=== PATIENT | female | born 1945 | race Caucasian/White ===

== ENCOUNTER 2016-06-03 18:52 | Inpatient (IN) | payer OTHER ==
[2016-06-03 19:08] VITALS: BMI 52.0
[2016-06-03 19:46] LABS: BASOPHIL 0.9 % (0-2.0); EOSINOPHIL 2.1 % (0-4.5); MCH 27.4 pg (25.7-33.7); MCHC 30.8 g/dl (32.0-36.0); MEAN CELL VOLUME 89.1 fl (80-96); MEAN PLT VOLUME 7.9 fl (7.5-11.1); PLATELET COUNT 214 K/MM3 (134-434); WHITE BLOOD COUNT 7.2 K/mm3 (4.0-10.0)
[2016-06-03 20:03] LABS: INR 1.36 (0.82-1.09); PROTHROMBIN TIME (PATIENT) 15.1 SEC (9.98-11.88)
[2016-06-03 20:10] LABS: ALBUMIN 2.2 g/dl (3.4-5.0); BILIRUBIN,TOTAL 0.3 mg/dL (0.2-1.0); CALCIUM 8.1 mg/dL (8.5-10.1); CREATININE 1.8 mg/dL (0.55-1.02); TOT PROT 6.1 g/dl (6.4-8.2)
--- NOTE | 2016-06-03 20:45 | PDOC ---
History of Present Illness - History of Present Illness Initial Comments: 06/03/16 20:46 The patient is a 71 year old female, with a significant past medical history of CAD, CHF, NE x2, HTN, HLD, COPD (O2 dependant 2L), renal insufficiency, DM, who presents to the emergency department via ems from [facility] with lab variance (low H&H) today. As per Dr. Wong, the patient is in need of a blood transfusion. The patient also has CHF and will need lasiks after the transfusion. The patient also need to be sen for her left foot infection, which she follows up with Dr. Alonso, and will be started on Hyperbarics. She denies chest pain, shortness of breath, headache and dizziness. She denies fever, chills, nausea, vomit, diarrhea and constipation. She denies dysuria, frequency, urgency and hematuria. Allergies: sulfa, tuberculin, ppd allergy Social history: Denies toxic habits PCP - Dr. Wong Coating And Baking Operator: Dr. [facility] Nurse Practitioner: Dr. Mcnamara <Mary Lou Roman - Last Filed: 06/03/16 20:57> <Stephane Martinez - Last Filed: 06/03/16 21:53> <April Liu - Last Filed: 06/05/16 01:57> - General Chief Complaint: Revisit, Lab Variance Stated Complaint: ABNORMAL LABS Time Seen by Provider: 06/03/16 19:13 Past History <Mary Lou Roman - Last Filed: 06/03/16 20:57> <Stephane Martinez - Last Filed: 06/03/16 21:53> - Past Medical History Anemia: Yes (chronic kidney disease) Asthma: Yes Cancer: No Cardiac Disorders: Yes (NE, cad, CHF) CVA: No COPD: Yes CHF: Yes Dementia: No Diabetes: Yes GI Disorders: Yes (gerd, constipation) Disorders: Yes (UTI) HTN: Yes Hypercholesterolemia: Yes Liver Disease: No Seizures: No Thyroid Disease: Yes (hypothyroidism) Other medical history: cellulitis of left lower leg. - Surgical History Abdominal Surgery: Yes Appendectomy: No Cardiac Surgery: No Cholecystectomy: No Lung Surgery: No Neurologic Surgery: No Orthopedic Surgery: Yes (amputationr great toe) - Immunization History Td Vaccination: Yes Immunization Up to Date: Yes - Psycho/Social/Smoking Cessation Hx Anxiety: No Suicidal Ideation: No Smoking Status: No Smoking History: Never smoked Years of Tobacco Use: 0 Have you smoked in the past 12 months: No Number of Cigarettes Smoked Daily: 0 Cigars Per Day: 0 Information on smoking cessation initiated: No Hx Alcohol Use: No Drug/Substance Use Hx: No Substance Use Type: None Hx Substance Use Treatment: No <April Liu - Last Filed: 06/05/16 01:57> - Past Medical History Allergies/Adverse Reactions: Allergies Allergy/AdvReac Type Severity Reaction Status Date / Time Sulfa (Sulfonamide Allergy Unknown Verified 06/03/16 19:08 Antibiotics) [Sulfa(Sulfonamide Antibiotics)] tuberculin, purified protein Allergy Unknown Verified 06/03/16 19:08 deriva [From Tubersol] tuberculin,PPD,multi-puncture Allergy Unknown Verified 06/03/16 19:08 ppd Allergy Unknown Uncoded 06/03/16 19:08 Home Medications: Ambulatory Orders Albuterol 0.083% Nebulizer Adina [Ventolin 0.083% Nebulizer Soln -] 1 neb NEB Q6H 04/19/16 Calcium Acetate 667 mg PO TID 04/19/16 Carvedilol 12.5 mg PO BID 04/19/16 Folic Acid 1 mg PO DAILY 04/19/16 Gabapentin [Neurontin] 300 mg PO DAILY 04/19/16 Heparin - 5,000 units IJ BID 04/19/16 Insulin (Levemir) [Levemir Vial] 20 unit SQ DAILY 04/19/16 Isosorbide Mononitrate [Isosorbide Mononitrate ER] 30 mg PO DAILY 04/19/16 Loratadine 10 mg PO DAILY 04/19/16 Metoclopramide HCl 5 mg PO TID 04/19/16 Sennosides [Senna] 2 tab PO HS 04/19/16 Simethicone 80 mg PO DAILY 04/19/16 Simvastatin 40 mg PO HS 04/19/16 Acetaminophen [Pain Relief] 650 mg PO BID PRN #0 05/17/16 Insulin Sliding Scale [Novolog Vial Sliding Scale -] 1 vial SQ ACHS units 05/17 Polyethylene Glycol 3350 [Miralax 119 gm Btl -] 17 gm PO BID bottle 05/17/16 Torsemide [Demadex -] 40 mg PO DAILY tablet 05/17/16 Vitamin A & D Top Oint - 1 applic TP BID tube 05/17/16 Cyanocobalamin [Vitamin B12 -] 1,000 mcg PO DAILY 06/03/16 Epoetin Dawood [Procrit] 10,000 unit IJ ASDIR 06/03/16 Fluticasone Prop 0.05% Nasal [Flonase -] 1 spray NS DAILY 06/03/16 Glycerin/Cellulose [Jigna-Lub Gel] 10 ml PO BID 06/03/16 Levothyroxine [Synthroid -] 50 mcg PO DAILY@0700 06/03/16 Lidocaine 5% Patch [Lidoderm Patch -] 1 patch TP DAILY 06/03/16 Oxycodone HCl/Acetaminophen [Percocet 5-325 mg Tablet] 2 tab PO Q8H PRN Potassium Chloride [Klor-Con] 20 meq PO DAILY 06/03/16 Review of Systems - Review of Systems Able to Perform ROS?: Yes Comments:: 06/03/16 20:46 CONSTITUTIONAL: Absent: fever, chills, diaphoresis, generalized weakness, malaise, loss of appetite HEENT: Absent: rhinorrhea, nasal congestion, throat pain, throat swelling, difficulty swallowing, mouth swelling, ear pain, eye pain, visual Changes CARDIOVASCULAR: Absent: chest pain, syncope, palpitations, irregular heart rate, lightheadedness , peripheral edema RESPIRATORY: Absent: cough, shortness of breath, dyspnea with exertion, orthopnea, wheezing, stridor, hemoptysis GASTROINTESTINAL: Absent: abdominal pain, abdominal distension, nausea, vomiting, diarrhea, constipation, melena, hematochezia GENITOURINARY: Absent: dysuria, frequency, urgency, hesitancy, hematuria, flank pain, genital pain MUSCULOSKELETAL: Absent: myalgia, arthralgia, joint swelling SKIN: Absent: rash, itching, pallor HEMATOLOGIC/IMMUNOLOGIC: Absent: easy bleeding, easy bruising, lymphadenopathy, frequent infections ENDOCRINE: Absent: unexplained weight gain, unexplained weight loss, heat intolerance, cold intolerance NEUROLOGIC: Absent: headache, focal weakness or paresthesias, dizziness, unsteady gait, seizure, mental status changes, bladder or bowel incontinence PSYCHIATRIC: Absent: anxiety, depression, suicidal or homicidal ideation, hallucinations. <Mary Lou Roman Last Filed: 06/03/16 20:57> *Physical Exam - Vital Signs Last Vital Signs Temp Pulse Resp BP Pulse Ox 98.7 F 57 L 18 122/48 97 06/03/16 18:55 06/03/16 18:55 06/03/16 18:55 06/03/16 18:55 06/03/16 18:55 - Physical Exam Comments: 06/03/16 20:46 GENERAL: Well developed, well nourished. Awake and alert. No acute distress. HEENT: Normocephalic, atraumatic. PERRLA, EOMI. No conjunctival pallor. Sclera are non- icteric. Moist mucous membranes. Oropharynx is clear. NECK: Supple. Full ROM. No JVD. Carotid pulses 2+ and symmetric, without bruits. No thyromegaly. No lymphadenopathy. CARDIOVASCULAR: Regular rate and rhythm. No murmurs, rubs, or gallops. Distal pulses are 2+ and symmetric. PULMONARY: No evidence of respiratory distress. Lungs clear to auscultation bilaterally. No wheezing, rales or rhonchi. ABDOMINAL: Soft. Non-tender. Non-distended. No rebound or guarding. No organomegaly. Normoactive bowel sounds. MUSCULOSKELETAL No bony deformities or tenderness. No CVA tenderness. NEUROLOGICAL: Alert, awake, appropriate. Cranial nerves 2-12 intact. Normoreflexic in the upper and lower extremities. Normal speech. Toes are down-going bilaterally. PSYCHIATRIC: Cooperative. Good eye contact. Appropriate mood and affect. <Mary Lou Roman - Last Filed: 06/03/16 20:57> - Vital Signs Last Vital Signs Temp Pulse Resp BP Pulse Ox 98.7 F 57 L 18 122/48 97 06/03/16 18:55 06/03/16 18:55 06/03/16 18:55 06/03/16 18:55 06/03/16 18:55 - Physical Exam Comments: 06/03/16 21:54 ADDENDUM: RECTAL EXAM: Brown stool. EXTREMITIES: Chronic non healing LLE wound. <Stephane Martinez - Last Filed: 06/03/16 21:53> - Vital Signs Last Vital Signs Temp Pulse Resp BP Pulse Ox 98.7 F 57 L 18 122/48 97 06/03/16 18:55 06/03/16 18:55 06/03/16 18:55 06/03/16 18:55 06/03/16 18:55 <April Liu - Last Filed: 06/05/16 01:57> ED Treatment Course - LABORATORY CBC & Chemistry Diagram: 06/03/16 19:30 06/03/16 19:23 - ADDITIONAL ORDERS Additional order review: Laboratory Results 06/03/16 06/03/16 19:35 19:23 INR 1.36 H Sodium 140 Potassium 5.5 H D Chloride 100 Carbon Dioxide 30 Anion Gap 10 BUN 96 H D Creatinine 1.8 H Creat Clearance w eGFR 27.66 Random Glucose 113 H Calcium 8.1 L Total Bilirubin 0.3 AST 9 L D ALT 7 L D Alkaline Phosphatase 113 Total Protein 6.1 L Albumin 2.2 L 06/03/16 19:30 RBC 2.84 L MCV 89.1 MCHC 30.8 L RDW 16.0 H MPV 7.9 Neutrophils % 77.0 Lymphocytes % 7.7 L Monocytes % 12.3 H Eosinophils % 2.1 Basophils % 0.9 <Mary Lou Roman - Last Filed: 06/03/16 20:57> - LABORATORY CBC & Chemistry Diagram: 06/03/16 19:30 06/03/16 19:23 - ADDITIONAL ORDERS Additional order review: Laboratory Results 06/03/16 06/03/16 06/03/16 19:35 19:30 19:23 INR 1.36 H Sodium 140 Potassium 5.5 H D Chloride 100 Carbon Dioxide 30 Anion Gap 10 BUN 96 H D Creatinine 1.8 H Creat Clearance w eGFR 27.66 Random Glucose 113 H Calcium 8.1 L Total Bilirubin 0.3 AST 9 L D ALT 7 L D Alkaline Phosphatase 113 Total Protein 6.1 L Albumin 2.2 L Crossmatch See Detail 06/03/16 19:30 RBC 2.84 L MCV 89.1 MCHC 30.8 L RDW 16.0 H MPV 7.9 Neutrophils % 77.0 Lymphocytes % 7.7 L Monocytes % 12.3 H Eosinophils % 2.1 Basophils % 0.9 <Stephane Martinez - Last Filed: 06/03/16 21:53> - LABORATORY CBC & Chemistry Diagram: 06/04/16 06:00 06/04/16 06:00 - ADDITIONAL ORDERS Additional order review: Laboratory Results 06/03/16 06/03/16 19:35 19:23 INR 1.36 H Sodium 140 Potassium 5.5 H D Chloride 100 Carbon Dioxide 30 Anion Gap 10 BUN 96 H D Creatinine 1.8 H Creat Clearance w eGFR 27.66 Random Glucose 113 H Calcium 8.1 L Total Bilirubin 0.3 AST 9 L D ALT 7 L D Alkaline Phosphatase 113 Total Protein 6.1 L Albumin 2.2 L 06/03/16 19:30 RBC 2.84 L MCV 89.1 MCHC 30.8 L RDW 16.0 H MPV 7.9 Neutrophils % 77.0 Lymphocytes % 7.7 L Monocytes % 12.3 H Eosinophils % 2.1 Basophils % 0.9 - RADIOLOGY Radiology Studies Ordered: Category Date Time Status CHEST X-RAY PORTABLE* [RAD] Stat Radiology 06/03/16 20:21 Ordered <April Liu - Last Filed: 06/05/16 01:57> Medical Decision Making - Medical Decision Making 06/05/16 01:53 71 yo female [facility] -on exam pt is hemoccult negative,brown stool - PMH obesity, copd,sleep apnea,chronic lower extremity lymphedema, chf,ckd,cad, mi,htn,diabetes -pt has had cellulits of left leg that required extensive hospitalization at end of 2015. Leg has ulcerations and is malodorous Dr Wong requested pt receive blood transfusion for the anemia and she wrote admitting orders -pt alsi received antibiotics <April Liu - Last Filed: 06/05/16 01:57> *DC/Admit/Observation/Transfer - Attestations Scribe Attestion: 06/03/16 20:47 Documentation prepared by Mary Lou Roman, acting as medical insurance clerk for April Liu MD <Mary Lou Roman - Last Filed: 06/03/16 20:57> <Stephane Martinez - Last Filed: 06/03/16 21:53> - Discharge Dispostion Admit: Yes <April Liu - Last Filed: 06/05/16 01:57> Diagnosis at time of Disposition: Visceral diabetic neuropathy, Hyperkalemia, CKD (chronic kidney disease), stage III Leg edema Qualifiers: Laterality: left Qualified Code(s): R60.0 - Localized edema Morbid obesity Qualifiers: Obesity type: due to excess calories Qualified Code(s): E66.01 - Morbid (severe ) obesity due to excess calories Anemia Qualifiers: Anemia type: unspecified type Qualified Code(s): D64.9 - Anemia, unspecified - Referrals
[2016-06-03] MEDS ORDERED: OXYCODONE/APAP 5/325MG COMBO TABLET PO PRN (20:53)
[2016-06-03] MEDS ORDERED: PATIENT'S OWN MEDICATION (NON-FORMULARY) (Acetaminophen [Pain Relief] 650 MG) PO PRN (20:53)
[2016-06-03] MEDS ORDERED: ACETAMINOPHEN 325 MG TABLET (FP) PO PRN (21:24)
[2016-06-03] MEDS ORDERED: METOCLOPRAMIDE HCL 5 MG PO SCH (22:00)
[2016-06-03] MEDS ORDERED: INSULIN SLIDING SCALE (NOVOLOG) 1 VIAL SQ SCH (22:00)
[2016-06-03] MEDS ORDERED: PATIENT'S OWN MEDICATION (NON-FORMULARY) (Simvastatin [Simvastatin] 40 MG) PO SCH (22:00)
[2016-06-03] MEDS ORDERED: PATIENT'S OWN MEDICATION (NON-FORMULARY) (Calcium Acetate [Calcium Acetate] 667 MG) PO SCH (22:00)
[2016-06-03] MEDS ORDERED: CARVEDILOL 12.5 MG TABLET (FP) ONE (22:45)
[2016-06-03] MEDS ORDERED: HEPARIN NA (PORCINE) 5,000 UNITS/ML 1ML VIAL ONE (22:45)
[2016-06-03] MEDS ORDERED: ATORVASTATIN CA 40 MG TABLET (FP) ONE (22:45)
[2016-06-03] MEDS ORDERED: METOCLOPRAMIDE HCL 10 MG TABLET (FP) PO ONE (22:46)
[2016-06-03] MEDS: ATORVASTATIN CA 20 MG TABLET (FP) PO SCH (22:50)
[2016-06-03] MEDS: POLYETHYLENE GLYCOL 3350 119 GM BTL PO SCH (22:50)
[2016-06-03] MEDS: CARVEDILOL 12.5 MG TABLET (FP) PO SCH (22:50)
[2016-06-03] MEDS: METOCLOPRAMIDE HCL 10 MG TABLET (FP) PO SCH (22:50)
[2016-06-03] MEDS: SENNOSIDES 8.6MG TABLET (FP) PO SCH (22:51)
[2016-06-03] MEDS: VITAMINS A AND D TOPICAL OINTMENT 60 GM TUBE TP SCH (22:51)
[2016-06-03] MEDS: HEPARIN NA (PORCINE) 5,000 UNITS/ML 1ML VIAL SQ SCH (23:02)
[2016-06-04] MEDS: oxyCODONE HCL 5 MG TABLET PO PRN (00:50)
[2016-06-04] MEDS ORDERED: ALBUTEROL SO4 0.083% IH SOL 2.5 MG/3 ML VIAL.NEB. NEB ONE (00:52)
[2016-06-04] MEDS ORDERED: oxyCODONE HCL 5 MG TABLET ONE (00:54)
[2016-06-04] MEDS: ALBUTEROL SO4 0.083% IH SOL 2.5 MG/3 ML VIAL.NEB. NEB SCH ×4 (00:55→17:40)
[2016-06-04] MEDS ORDERED: HEMOQUE TEST 1 EACH EACH ONE (01:01)
[2016-06-04] MEDS: INSULIN SLIDING SCALE (NOVOLOG) 1 VIAL SQ SCH ×5 (01:25→22:04)
[2016-06-04] MEDS: METOCLOPRAMIDE HCL 10 MG TABLET (FP) PO SCH ×3 (06:23→22:04)
[2016-06-04] MEDS: FUROSEMIDE 40 MG/4 ML INJECTABLE VIAL IVPUSH SCH ×2 (06:23→14:46)
[2016-06-04] MEDS: LEVOTHYROXINE NA 50 MCG TABLET (FP) PO SCH (06:23)
[2016-06-04] MEDS ORDERED: INSULIN SLIDING SCALE (NOVOLOG) 1 VIAL SQ SCH (07:00)
[2016-06-04 08:03] LABS: BASOPHIL 0.6 % (0-2.0); EOSINOPHIL 2.3 % (0-4.5); MCH 27.9 pg (25.7-33.7); MCHC 31.2 g/dl (32.0-36.0); MEAN CELL VOLUME 89.5 fl (80-96); MEAN PLT VOLUME 8.2 fl (7.5-11.1); NEUTROPHILS 73.9 % (42.8-82.8); PLATELET COUNT 198 K/MM3 (134-434); RDW 15.5 % (11.6-15.6); WHITE BLOOD COUNT 6.9 K/mm3 (4.0-10.0)
[2016-06-04 08:33] LABS: CALCIUM 8.4 mg/dL (8.5-10.1)
[2016-06-04 08:37] LABS: CREATININE 1.8 mg/dL (0.55-1.02)
[2016-06-04] MEDS: SODIUM POLYSTYRENE SULFONATE 15 GM/60 ML BOTTLE PO ONE ×2 (09:00→17:47)
[2016-06-04] MEDS: CALCIUM ACETATE 667 MG CAPSULE (FP) PO SCH ×3 (09:30→17:18)
[2016-06-04] MEDS: GABAPENTIN 300 MG CAPSULE (FP) PO SCH (09:31)
[2016-06-04] MEDS: FOLIC ACID 1 MG TABLET (FP) PO SCH (09:31)
[2016-06-04] MEDS: SIMETHICONE 80 MG TAB.CHEW (FP) PO SCH (09:31)
[2016-06-04] MEDS: CYANOCOBALAMIN 1,000 MCG TABLET (FP) PO SCH (09:31)
[2016-06-04] MEDS: LORATADINE 10 MG TABLET PO SCH (09:32)
[2016-06-04] MEDS: LIDOCAINE 5% TOPICAL PATCH TP SCH (09:33)
[2016-06-04] MEDS: POLYETHYLENE GLYCOL 3350 119 GM BTL PO SCH ×2 (09:37→22:03)
[2016-06-04] MEDS: ISOSORBIDE MONONITRATE 30 MG TAB.SR.24H (FP) PO SCH (09:43)
[2016-06-04] MEDS: CARVEDILOL 12.5 MG TABLET (FP) PO SCH ×2 (09:43→22:00)
[2016-06-04] MEDS: VITAMINS A AND D TOPICAL OINTMENT 60 GM TUBE TP SCH ×2 (10:00→22:06)
[2016-06-04] MEDS ORDERED: TORSEMIDE 20 MG TABLET (FP) PO SCH (10:00)
[2016-06-04] MEDS: ACETAMINOPHEN 325 MG TABLET (FP) PO PRN (10:23)
[2016-06-04] MEDS: HEPARIN NA (PORCINE) 5,000 UNITS/ML 1ML VIAL SQ SCH ×2 (10:23→22:01)
[2016-06-04] MEDS: INSULIN DETEMIR 100 UNITS/ML MDV SQ SCH (10:29)
[2016-06-04] MEDS: FLUTICASONE PROP 0.05% 16 GM NASAL SPRAY NS SCH ×2 (10:47→14:46)
[2016-06-04] MEDS ORDERED: INSULIN DETEMIR 100 UNITS/ML MDV SQ ONE ×2 (11:15→20:56)
[2016-06-04] MEDS ORDERED: INSULIN (NOVOLOG) ASPART 100 UNITS/ML 10ML VIAL ONE ×2 (11:22→20:56)
--- NOTE | 2016-06-04 12:41 | PN ---
Progress Note (short form) - Note Progress Note: Pt seen and examined by myself and with Dr. Alonso, she is well known to the surgical service and was seen in the past for lower ext cellulitis and blister to her left foot with serous drainage(05/06/16). At that time, the blisters were popped and aliginate was applied to her LLE. The patient states that she is being followed in wound care with Dr. Alonso and he was arranging hyperbaric oxygen treatment. Today the patient is here to receive a blood transfusion. Vital Signs Period Temp Pulse Resp BP Sys/Hagan Pulse Ox Last 24 Hr 98.4 F-98.7 F 57-74 18-20 109-126/47-58 94-100 PE: GEN: alert and uncomfortable with dressing change. LLE: no-palpable DP pulse, two large eschars 6x6cm and [id number] seperated by a small island of skin. The eschars area located on the dorsal aspect of the foot and the largest extends to the toes and covers to forefoot. The others smaller eschar is more proximal and is just below the ankle. Surrounding erythema and foul odor noted. The superior eschar is more dissicated than the inferior one. CBC, BMP 06/04/16 06:00 06/04/16 06:00 Problem List - Problems (1) Ulcer of foot Assessment/Plan: Large eschar present to the left dorsal aspect of foot, local wound care with santyl ordered. Dr. Alonso arranging for hyperbaric therapy eval and treatment after discharge from the hospital. Surgery to follow the patient while in the hospital. Code(s): L97.509 - NON-PRESSURE CHRONIC ULCER OTH PRT UNSP FOOT W UNSP SEVERITY Qualifiers: Laterality: left Non-pressure ulcer stage: unspecified non-pressure ulcer stage Qualified Code(s): L97.529 - Non-pressure chronic ulcer of other part of left foot with unspecified severity
--- NOTE | 2016-06-04 12:41 | PN ---
Progress Note (short form) - Note Progress Note: ID Consult dictated Necrotic L foot ulcer, possible secondary infection/ cellulitis Hx recurrent LE cellulitis Chronic LE lymphedema Azotemia Obtain c/s Surgical evaluation Empiric zosyn ( prior hx Pseudomonas )
[2016-06-04] MEDS: COLLAGENASE CLOSTRIDIUM HIST. 30 GRAMS TUBE TP SCH ×2 (12:45→17:46)
[2016-06-04] MEDS: PIPERACILLIN/TAZOB 2.25 GM 50 ML IVPB SCH ×3 (13:38→20:33)
--- NOTE | 2016-06-04 14:54 | CONS ---
DATE OF CONSULTATION: DATE OF DICTATION: 06/04/2016 REASON FOR CONSULTATION: A 71-year-old female evaluated for cellulitis of the left lower extremity. She was recently discharged from [facility] after a prolonged hospitalization for cellulitis of the left lower extremity. She was in the hospital from April 19, 2016, through May 17, 2016. At that time her course was complicated by development of bullous lesions on the left lower extremity which subsequently ruptured, leaving a shallow-based ulceration. They have since become necrotic in appearance. She is now admitted from the shelter after she was noted to have lab abnormality. Specifically, she was noted to have a low hematocrit and was in need of a blood transfusion. The patient has a necrotic ulceration present over the dorsal aspect of the left foot, with some slight surrounding erythema. It is malodorous. There were no reports of any associated fever or chills. Her white blood cell count is normal. PAST MEDICAL HISTORY: Positive for morbid obesity, COPD, obstructive sleep apnea, chronic lower extremity lymphedema, congestive heart failure, chronic kidney disease, coronary artery disease, myocardial infarction, hypertension, hyperlipidemia, diabetes mellitus, hypothyroidism. ALLERGIES: SULFA. MEDICATIONS: Tylenol, heparin, Neurontin, Ventolin, Coreg, Flonase, Lipitor, NovoLog, Lasix, Imdur, oxycodone. SOCIAL HISTORY: She [facility] in a detention facility. Nonsmoker, nondrinker. REVIEW OF SYSTEMS: Neurologic: No loss of consciousness, seizure activity, focal weakness. Cardiac: Negative chest pain or palpitations. Respiratory: Negative cough or sputum production. Gastrointestinal: Negative vomiting or diarrhea. Genitourinary: Negative for urinary tract infection. LABORATORY DATA: White count 6.9, hematocrit 25.9, platelet count 198. BUN 96, creatinine 1.8. Chest x-ray shows increased markings bilaterally. Previous wound culture is positive for coagulase-negative staph and pseudomonas. PHYSICAL EXAMINATION: General: She is awake and alert. She is in no acute distress, not acutely toxic appearing. Vital Signs: Temperature 98.5, blood pressure 162/52, pulse 58, regular. Respirations 20 per minute. HEENT: The patient is legally blind. Cardiovascular: Heart sounds S1, S2. Lungs: Clear. Abdomen: Soft, obese. No tenderness elicited. Extremities: Positive for lower extremity lymphedema. Examination of the left lower extremity, there is a necrotic ulceration present over the dorsal aspect of the left foot. It is malodorous. There is no purulent drainage. There is some erythema extending proximally to the area of the ankle. It is slightly warm to touch. IMPRESSION: 1. Necrotic ulceration, left foot. 2. Possible secondary infection/cellulitis. 3. History of chronic lower extremity lymphedema. 4. History of recurrent lower extremity cellulitis. Surgical evaluation for wound treatment, empiric antibiotic coverage with Zosyn 2.25 g IV piggyback every 8 hours in light of previous culture results, local wound care. Thank you for the kind referral. HEBER BAY M.D. LAMAR/[id number]
[2016-06-04] MEDS ORDERED: ONDANSETRON 4 MG/2 ML VIAL IVPB PRN (14:55)
--- NOTE | 2016-06-04 17:47 | EKG ---
Test Reason : Blood Pressure : / mmHG Vent. Rate : 058 BPM Atrial Rate : 058 BPM P-R Int : 176 ms QRS Dur : 088 ms QT Int : 458 ms P-R-T Axes : 058 -04 146 degrees QTc Int : 449 ms SINUS BRADYCARDIA T WAVE ABNORMALITY, CONSIDER LATERAL ISCHEMIA ABNORMAL ECG WHEN COMPARED WITH ECG OF 19-APR-2016 17:16, T WAVE VARIATION Confirmed by RUFINO BONILLA MD ([id number]) on 06/04/2016 5:47:42 PM Referred By: Confirmed By:RUFINO BONILLA MD
[2016-06-04] MEDS: ATORVASTATIN CA 20 MG TABLET (FP) PO SCH (22:02)
[2016-06-04] MEDS: SENNOSIDES 8.6MG TABLET (FP) PO SCH (22:05)
--- NOTE | 2016-06-04 22:14 | HP ---
Admitting History and Physical - Primary Care Physician PCP: Amina Wong S - Admission Chief Complaint: low H&H, foot infection History of Present Illness: The patient is a 71 year old female, with a significant past medical history of CAD, CHF, ME x2, HTN, HLD, COPD (O2 dependant 2L), renal insufficiency, DM, who presents to the emergency department via ems from [facility] with lab variance (low H&H) . Low H&H the patient is in need of a blood transfusion. The patient also has CHF and will need lasix after the transfusion. High K, CRF. The patient also need to be seen for her left foot infection and open wound , which she follows up with Dr. Alonso, and will be started on Hyperbarics. Most likely will need again IV ATB. She denies chest pain, shortness of breath, headache and dizziness. She denies fever, chills, nausea, vomit, diarrhea and constipation. She denies dysuria, frequency, urgency and hematuria. 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 No: Hemodialysis Heme/Onc: Yes: Anemia Infectious Disease: Yes: MRSA, Other (uti- esbl positive ecoli and klebsiella) Endocrine: Yes: Diabetes Mellitus, Hypothyroidism Dermatology: Yes: Cellulitis (recurrent R leg cellulitis) - Smoking History Smoking history: Never smoked Have you smoked in the past 12 months: No Aproximately how many cigarettes per day: 0 - Alcohol/Substance Use Hx Alcohol Use: No History of Substance Use: reports: None - Social History Usual Living Arrangement: Yes: Half-Way ADL: Support Services History of Recent Travel: No Home Medications - Allergies Allergies/Adverse Reactions: Allergies Allergy/AdvReac Type Severity Reaction Status Date / Time Sulfa (Sulfonamide Allergy Unknown Verified 06/03/16 19:08 Antibiotics) [Sulfa(Sulfonamide Antibiotics)] tuberculin, purified protein Allergy Unknown Verified 06/03/16 19:08 deriva [From Tubersol] tuberculin,PPD,multi-puncture Allergy Unknown Verified 06/03/16 19:08 ppd Allergy Unknown Uncoded 06/03/16 19:08 - Home Medications Home Medications: Ambulatory Orders Albuterol 0.083% Nebulizer Adina [Ventolin 0.083% Nebulizer Soln -] 1 neb NEB Q6H 04/19/16 Calcium Acetate 667 mg PO TID 04/19/16 Carvedilol 12.5 mg PO BID 04/19/16 Folic Acid 1 mg PO DAILY 04/19/16 Gabapentin [Neurontin] 300 mg PO DAILY 04/19/16 Heparin - 5,000 units IJ BID 04/19/16 Insulin (Levemir) [Levemir Vial] 20 unit SQ DAILY 04/19/16 Isosorbide Mononitrate [Isosorbide Mononitrate ER] 30 mg PO DAILY 04/19/16 Loratadine 10 mg PO DAILY 04/19/16 Metoclopramide HCl 5 mg PO TID 04/19/16 Sennosides [Senna] 2 tab PO HS 04/19/16 Simethicone 80 mg PO DAILY 04/19/16 Simvastatin 40 mg PO HS 04/19/16 Acetaminophen [Pain Relief] 650 mg PO BID PRN #0 05/17/16 Insulin Sliding Scale [Novolog Vial Sliding Scale -] 1 vial SQ ACHS units 05/17 Polyethylene Glycol 3350 [Miralax 119 gm Btl -] 17 gm PO BID bottle 05/17/16 Torsemide [Demadex -] 40 mg PO DAILY tablet 05/17/16 Vitamin A & D Top Oint - 1 applic TP BID tube 05/17/16 Cyanocobalamin [Vitamin B12 -] 1,000 mcg PO DAILY 06/03/16 Epoetin Dawood [Procrit] 10,000 unit IJ ASDIR 06/03/16 Fluticasone Prop 0.05% Nasal [Flonase -] 1 spray NS DAILY 06/03/16 Glycerin/Cellulose [Jigna-Lub Gel] 10 ml PO BID 06/03/16 Levothyroxine [Synthroid -] 50 mcg PO DAILY@0700 06/03/16 Lidocaine 5% Patch [Lidoderm Patch -] 1 patch TP DAILY 06/03/16 Oxycodone HCl/Acetaminophen [Percocet 5-325 mg Tablet] 2 tab PO Q8H PRN Potassium Chloride [Klor-Con] 20 meq PO DAILY 06/03/16 Family Disease History - Family Disease History Family Disease History: Diabetes: Brother (ESRD on HD), Other: Brother Review of Systems - Review of Systems Constitutional: denies: Chills, Fever, Lethargy HENT: denies: Difficult Swallowing, Ear Pain Neck: denies: Stiffness, Swollen Glands, Tenderness Cardiovascular: reports: Edema. denies: Chest Pain, Palpitations, Shortness of Breath Respiratory: denies: Cough, Hemoptysis, SOB Gastrointestinal: denies: Abdominal Pain, Bloating, Constipation, Diarrhea Genitourinary: reports: Flank Pain. denies: Dysuria Musculoskeletal: reports: Extremity Pain. denies: Back Pain Neurological: denies: Change in LOC, Change in Speech, Confusion, Headache, Seizure, Syncope Psychiatric: denies: Altered Sleep Pattern, Anxiety, Depression Physical Examination Vital Signs: Vital Signs Temperature 98.1 F 06/04/16 14:35 Pulse Rate 80 06/04/16 14:35 Respiratory Rate 22 06/04/16 14:35 Blood Pressure 145/74 06/04/16 14:35 O2 Sat by Pulse Oximetry (%) 97 06/04/16 21:53 Constitutional: Yes: No Distress, Calm Eyes: Yes: Conjunctiva Clear HENT: Yes: Atraumatic Neck: Yes: Supple Cardiovascular: Yes: Regular Rate and Rhythm Respiratory: Yes: Diminished Gastrointestinal: Yes: Soft. No: Distention, Tenderness Musculoskeletal: No: Joint Stiffness, Joint Swelling Extremities: Yes: Other (L foot open wound wih necrotic skin). No: Cold, Cool Edema: Yes Peripheral Pulses WNL: Yes Integumentary: Yes: Venous Stasis Changes Neurological: Yes: Alert, Oriented ...Motor Strength: WNL (legs weakness and bedbound) Psychiatric: Yes: Alert, Oriented. No: Agitated Labs: CBC, BMP 06/04/16 06:00 06/04/16 06:00 Imaging - Results Chest X-ray: Report Reviewed Other: Report Reviewed Assessment/Plan The patient is a 71 year old female, with a significant past medical history of CAD, CHF, ME x2, HTN, HLD, COPD (O2 dependant 2L), renal insufficiency, DM, who presents to the emergency department via ems from [facility] with anemia, hyperK, foot wound and infection DM admit transfuse PBC, IV lasix IV antibiotics per ID surgery eval pain meds, DVT pfx f/u labs and Cx d/w pt and staff
[2016-06-04 22:20] LABS: URINE APPEARANCE CLEAR; URINE BILIRUBIN NEGATIVE (NEGATIVE); URINE COLOR STRAW; URINE GLUCOSE (UA) NEGATIVE (NEGATIVE); URINE KETONE NEGATIVE (NEGATIVE); URINE LEUK ESTERASE NEGATIVE (NEGATIVE); URINE NITRITE NEGATIVE (NEGATIVE); URINE PROTEIN NEGATIVE (NEGATIVE); URINE UROBILINOGEN NEGATIVE E.U./dl (0.2-1.0)
[2016-06-04 23:01] LABS: URINE BLOOD 1+ (NEGATIVE)
[2016-06-05] MEDS: ALBUTEROL SO4 0.083% IH SOL 2.5 MG/3 ML VIAL.NEB. NEB SCH ×5 (00:14→23:29)
[2016-06-05] MEDS: PIPERACILLIN/TAZOB 2.25 GM 50 ML IVPB SCH ×3 (01:55→17:25)
[2016-06-05] MEDS: ACETAMINOPHEN 325 MG TABLET (FP) PO PRN (03:31)
[2016-06-05] MEDS: FUROSEMIDE 40 MG/4 ML INJECTABLE VIAL IVPUSH SCH ×3 (06:06→17:24)
[2016-06-05] MEDS: METOCLOPRAMIDE HCL 10 MG TABLET (FP) PO SCH ×3 (06:08→23:46)
[2016-06-05] MEDS: INSULIN SLIDING SCALE (NOVOLOG) 1 VIAL SQ SCH ×4 (06:09→23:43)
[2016-06-05] MEDS: INSULIN DETEMIR 100 UNITS/ML MDV SQ SCH ×2 (06:09→07:13)
[2016-06-05] MEDS: LEVOTHYROXINE NA 50 MCG TABLET (FP) PO SCH (06:10)
[2016-06-05 07:04] LABS: BASOPHIL 0.5 % (0-2.0); EOSINOPHIL 1.5 % (0-4.5); MCH 28.1 pg (25.7-33.7); MCHC 31.4 g/dl (32.0-36.0); MEAN CELL VOLUME 89.4 fl (80-96); NEUTROPHILS 76.9 % (42.8-82.8); PLATELET COUNT 202 K/MM3 (134-434); RDW 15.5 % (11.6-15.6); WHITE BLOOD COUNT 7.3 K/mm3 (4.0-10.0)
[2016-06-05 07:38] LABS: CALCIUM 8.3 mg/dL (8.5-10.1); CREATININE 1.7 mg/dL (0.55-1.02)
[2016-06-05] MEDS: CALCIUM ACETATE 667 MG CAPSULE (FP) PO SCH ×3 (09:00→17:25)
[2016-06-05] MEDS: oxyCODONE HCL 5 MG TABLET PO PRN (09:23)
[2016-06-05] MEDS: CYANOCOBALAMIN 1,000 MCG TABLET (FP) PO SCH (09:24)
[2016-06-05] MEDS: FOLIC ACID 1 MG TABLET (FP) PO SCH (09:24)
[2016-06-05] MEDS: HEPARIN NA (PORCINE) 5,000 UNITS/ML 1ML VIAL SQ SCH ×2 (09:25→23:45)
[2016-06-05] MEDS: LORATADINE 10 MG TABLET PO SCH (09:25)
[2016-06-05] MEDS: GABAPENTIN 300 MG CAPSULE (FP) PO SCH (09:25)
[2016-06-05] MEDS: SIMETHICONE 80 MG TAB.CHEW (FP) PO SCH (09:25)
[2016-06-05] MEDS: FLUTICASONE PROP 0.05% 16 GM NASAL SPRAY NS SCH (09:25)
[2016-06-05] MEDS: POLYETHYLENE GLYCOL 3350 119 GM BTL PO SCH ×2 (09:35→23:45)
[2016-06-05] MEDS: VITAMINS A AND D TOPICAL OINTMENT 60 GM TUBE TP SCH ×2 (09:35→23:46)
[2016-06-05] MEDS: LIDOCAINE 5% TOPICAL PATCH TP SCH (09:38)
[2016-06-05] MEDS ORDERED: INSULIN (NOVOLOG) ASPART 100 UNITS/ML 10ML VIAL ONE (11:06)
[2016-06-05] MEDS: ISOSORBIDE MONONITRATE 30 MG TAB.SR.24H (FP) PO SCH (11:30)
[2016-06-05] MEDS: CARVEDILOL 12.5 MG TABLET (FP) PO SCH (11:30)
--- NOTE | 2016-06-05 12:57 | PN ---
Progress Note, Physician Chief Complaint: c.o foot pain; is on pain meds prn; afebrile; consults and meds reviewed and d/w pt her HCP used to be her brother but he is NA and now she wants her sisters to be NOK will ask her to sign HCP papers - Current Medication List Current Medications: Active Medications Acetaminophen (Tylenol -) 650 mg PO Q12H PRN PRN Reason: PAIN Last Admin: 06/05/16 03:31 Dose: 650 mg Acetaminophen (Tylenol -) 325 mg PO Q8H PRN PRN Reason: FEVER OR PAIN Albuterol Sulfate (Ventolin 0.083% Nebulizer Soln -) 1 amp NEB Q6HPO [facility] Last Admin: 06/05/16 11:25 Dose: 1 amp Atorvastatin Calcium (Lipitor -) 20 mg PO HS [facility] Last Admin: 06/04/16 22:02 Dose: 20 mg Calcium Acetate (Phoslo -) 667 mg PO TIDCM [facility] Last Admin: 06/05/16 11:28 Dose: 667 mg Carvedilol (Coreg -) 12.5 mg PO BID [facility] Last Admin: 06/05/16 11:30 Dose: Not Given Collagenase (Santyl -) 1 applic TP DAILY [facility] Last Admin: 06/04/16 17:46 Dose: 1 applic Cyanocobalamin (Vitamin B12 -) 1,000 mcg PO DAILY [facility] Last Admin: 06/05/16 09:24 Dose: 1,000 mcg Fluticasone Propionate (Flonase -) 1 spray NS DAILY [facility] Last Admin: 06/05/16 09:25 Dose: 1 spray Folic Acid (Folic Acid -) 1 mg PO DAILY [facility] Last Admin: 06/05/16 09:24 Dose: 1 mg Furosemide (Lasix Injection -) 40 mg IVPUSH BID@0600,1400 [facility] Last Admin: 06/05/16 06:06 Dose: 40 mg Gabapentin (Neurontin -) 300 mg PO DAILY [facility] Last Admin: 06/05/16 09:25 Dose: 300 mg Heparin Sodium (Porcine) (Heparin -) 5,000 unit SQ BID [facility] Last Admin: 06/05/16 09:25 Dose: 5,000 unit Piperacillin Sod/Tazobactam Sod (Zosyn 2.25gm Ivpb (Pre-Docked)) 50 mls @ 100 mls/hr IVPB Q8H-IV [facility] Last Admin: 06/05/16 09:26 Dose: 100 mls/hr Insulin Aspart (Novolog Vial Sliding Scale -) 1 vial SQ ACHS [facility] PRN Reason: Protocol Last Admin: 06/05/16 11:28 Dose: Not Given Insulin Detemir (Levemir Vial) 20 units SQ ACBK [facility] Last Admin: 06/05/16 07:13 Dose: 20 units Isosorbide Mononitrate (Imdur -) 30 mg PO DAILY [facility] Last Admin: 06/05/16 11:30 Dose: Not Given Levothyroxine Sodium (Synthroid -) 50 mcg PO DAILY@0700 [facility] Last Admin: 06/05/16 06:10 Dose: 50 mcg Lidocaine (Lidoderm Patch -) 1 patch TP DAILY [facility] Last Admin: 06/05/16 09:38 Dose: 1 patch Loratadine (Claritin -) 10 mg PO DAILY [facility] Last Admin: 06/05/16 09:25 Dose: 10 mg Metoclopramide HCl (Reglan -) 5 mg PO TID [facility] Last Admin: 06/05/16 06:08 Dose: 5 mg Ondansetron HCl (Zofran Injection) 8 mg IVPB Q8H PRN PRN Reason: NAUSEA AND/OR VOMITING Last Admin: 06/04/16 15:01 Dose: 8 mg Oxycodone HCl (Roxicodone -) 5 mg PO Q8H PRN Last Admin: 06/05/16 09:23 Dose: 5 mg Polyethylene Glycol (Miralax (For Daily Use) -) 17 gm PO BID [facility] Last Admin: 06/05/16 09:35 Dose: Not Given Senna (Senna -) 2 tab PO HS [facility] Last Admin: 06/04/16 22:05 Dose: 2 tab Simethicone (Mylicon -) 80 mg PO DAILY [facility] Last Admin: 06/05/16 09:25 Dose: 80 mg Vitamin A/Vitamin D (Vitamin A & D Top Oint -) 1 applic TP BID [facility] Last Admin: 06/05/16 09:35 Dose: 1 applic - Objective Vital Signs: Vital Signs Temperature 98.3 F 06/05/16 09:55 Pulse Rate 65 06/05/16 11:25 Respiratory Rate 18 06/05/16 09:55 Blood Pressure 116/48 06/05/16 09:55 O2 Sat by Pulse Oximetry (%) 92 L 06/05/16 11:25 Constitutional: Yes: No Distress, Calm Eyes: Yes: Conjunctiva Clear HENT: Yes: Atraumatic Neck: Yes: Supple Cardiovascular: Yes: Regular Rate and Rhythm Respiratory: Yes: CTA Bilaterally Gastrointestinal: Yes: Soft. No: Distention, Tenderness Genitourinary: No: Hematuria Musculoskeletal: No: Joint Stiffness, Joint Swelling Extremities: No: Cold, Cool Edema: Yes Peripheral Pulses WNL: Yes Integumentary: Yes: Rash, Venous Stasis Changes Wound/Incision: Yes: Other (L foot wound with necrotic skin) Neurological: Yes: WNL, Alert, Oriented ...Motor Strength: WNL (except chronic legs wekaness bedbound) Psychiatric: Yes: WNL, Alert, Oriented. No: Agitated Labs: CBC, BMP 06/05/16 06:50 06/05/16 06:50 INR, PTT INR 1.36 (0.82-1.09) H 06/03/16 19:35 - ....Imaging Other: Report Reviewed Assessment/Plan The patient is a 71 year old female, with a significant past medical history of CAD, CHF, CO x2, HTN, HLD, COPD (O2 dependant 2L), renal insufficiency, DM, who presents to the emergency department via ems from Located within [facility] with anemia, hyperK, foot wound and infection DM s/p 1 U transfuse PBC, s/p IV lasix IV antibiotics per ID surgery eval, hyperbaric tx?. wound care pain meds, DVT pfx f/u labs and Cx pt to sign HCP d/w pt and staff
--- NOTE | 2016-06-05 14:35 | PN ---
Progress Note, Physician History of Present Illness: Awake, alert No c/o foot pain Afebrile - Current Medication List Current Medications: Active Medications Acetaminophen (Tylenol -) 650 mg PO Q12H PRN PRN Reason: PAIN Last Admin: 06/05/16 03:31 Dose: 650 mg Acetaminophen (Tylenol -) 325 mg PO Q8H PRN PRN Reason: FEVER OR PAIN Albuterol Sulfate (Ventolin 0.083% Nebulizer Soln -) 1 amp NEB Q6HPO [facility] Last Admin: 06/05/16 11:25 Dose: 1 amp Atorvastatin Calcium (Lipitor -) 20 mg PO HS [facility] Last Admin: 06/04/16 22:02 Dose: 20 mg Calcium Acetate (Phoslo -) 667 mg PO TIDCM [facility] Last Admin: 06/05/16 11:28 Dose: 667 mg Carvedilol (Coreg -) 12.5 mg PO BID [facility] Last Admin: 06/05/16 11:30 Dose: Not Given Collagenase (Santyl -) 1 applic TP DAILY [facility] Last Admin: 06/04/16 17:46 Dose: 1 applic Cyanocobalamin (Vitamin B12 -) 1,000 mcg PO DAILY [facility] Last Admin: 06/05/16 09:24 Dose: 1,000 mcg Fluticasone Propionate (Flonase -) 1 spray NS DAILY [facility] Last Admin: 06/05/16 09:25 Dose: 1 spray Folic Acid (Folic Acid -) 1 mg PO DAILY [facility] Last Admin: 06/05/16 09:24 Dose: 1 mg Furosemide (Lasix Injection -) 40 mg IVPUSH BID@0600,1400 [facility] Last Admin: 06/05/16 06:06 Dose: 40 mg Gabapentin (Neurontin -) 300 mg PO DAILY [facility] Last Admin: 06/05/16 09:25 Dose: 300 mg Heparin Sodium (Porcine) (Heparin -) 5,000 unit SQ BID [facility] Last Admin: 06/05/16 09:25 Dose: 5,000 unit Piperacillin Sod/Tazobactam Sod (Zosyn 2.25gm Ivpb (Pre-Docked)) 50 mls @ 100 mls/hr IVPB Q8H-IV [facility] Last Admin: 06/05/16 09:26 Dose: 100 mls/hr Insulin Aspart (Novolog Vial Sliding Scale -) 1 vial SQ ACHS [facility] PRN Reason: Protocol Last Admin: 06/05/16 11:28 Dose: Not Given Insulin Detemir (Levemir Vial) 20 units SQ ACBK [facility] Last Admin: 06/05/16 07:13 Dose: 20 units Isosorbide Mononitrate (Imdur -) 30 mg PO DAILY [facility] Last Admin: 06/05/16 11:30 Dose: Not Given Levothyroxine Sodium (Synthroid -) 50 mcg PO DAILY@0700 [facility] Last Admin: 06/05/16 06:10 Dose: 50 mcg Lidocaine (Lidoderm Patch -) 1 patch TP DAILY [facility] Last Admin: 06/05/16 09:38 Dose: 1 patch Loratadine (Claritin -) 10 mg PO DAILY [facility] Last Admin: 06/05/16 09:25 Dose: 10 mg Metoclopramide HCl (Reglan -) 5 mg PO TID [facility] Last Admin: 06/05/16 06:08 Dose: 5 mg Ondansetron HCl (Zofran Injection) 8 mg IVPB Q8H PRN PRN Reason: NAUSEA AND/OR VOMITING Last Admin: 06/04/16 15:01 Dose: 8 mg Oxycodone HCl (Roxicodone -) 5 mg PO Q8H PRN Last Admin: 06/05/16 09:23 Dose: 5 mg Polyethylene Glycol (Miralax (For Daily Use) -) 17 gm PO BID [facility] Last Admin: 06/05/16 09:35 Dose: Not Given Senna (Senna -) 2 tab PO HS [facility] Last Admin: 06/04/16 22:05 Dose: 2 tab Simethicone (Mylicon -) 80 mg PO DAILY [facility] Last Admin: 06/05/16 09:25 Dose: 80 mg Vitamin A/Vitamin D (Vitamin A & D Top Oint -) 1 applic TP BID [facility] Last Admin: 06/05/16 09:35 Dose: 1 applic - Objective Vital Signs: Vital Signs Temperature 98.3 F 06/05/16 09:55 Pulse Rate 65 06/05/16 11:25 Respiratory Rate 18 06/05/16 09:55 Blood Pressure 116/48 06/05/16 09:55 O2 Sat by Pulse Oximetry (%) 92 L 06/05/16 11:25 Constitutional: Yes: No Distress Eyes: Yes: Conjunctiva Clear Cardiovascular: Yes: Regular Rate and Rhythm, S1, S2 Respiratory: Yes: CTA Bilaterally Gastrointestinal: Yes: Normal Bowel Sounds, Soft, Abdomen, Obese Extremities: Yes: Other (+ B/L LE lymphedema + necrotic, malodorous ulcer L foot ) Edema: Yes Labs: CBC, BMP 06/05/16 06:50 06/05/16 06:50 INR, PTT INR 1.36 (0.82-1.09) H 06/03/16 19:35 Assessment/Plan Necrotic L foot ulcer Recurrent LE cellulitis Continue empiric zosyn Local wound care
--- NOTE | 2016-06-05 15:08 | CON.CARD ---
Cardiology Consult (text) - Consultation Consultation Note: CC: edema 71 yo with h/o HFpEF, CAD s/p [place], HTN, HL, pHTN, MIRIAM, o2 dep't copd, CKD (bline cr 1.5-1.9), IDDM, hypothyroid and chronic LLE cellulitis p/w anemia, hyperkalemia. Patient denies any recent change in symptoms. No cp, sob, palps, dizzy, loc, pnd, orthopnea. At baseline cannot stand, bed bound. poor po intake, chronic. chronic discomfort at LLE States over past few months edema has reached her abdomen, feels that it is stable. PMH/PSHx:Per hpi fam hx: Diabetes: Brother (ESRD on HD) social hx: Never smoked, no etoh or illicits. lives at residential. ros; per hpi. Additionally no f/c/s, n/v/d, headache, cough, congestion, visual disturbances. Ambulatory Orders Albuterol 0.083% Nebulizer Adina [Ventolin 0.083% Nebulizer Soln -] 1 neb NEB Q6H 04/19/16 Calcium Acetate 667 mg PO TID 04/19/16 Carvedilol 12.5 mg PO BID 04/19/16 Folic Acid 1 mg PO DAILY 04/19/16 Gabapentin [Neurontin] 300 mg PO DAILY 04/19/16 Heparin - 5,000 units IJ BID 04/19/16 Insulin (Levemir) [Levemir Vial] 20 unit SQ DAILY 04/19/16 Isosorbide Mononitrate [Isosorbide Mononitrate ER] 30 mg PO DAILY 04/19/16 Loratadine 10 mg PO DAILY 04/19/16 Metoclopramide HCl 5 mg PO TID 04/19/16 Sennosides [Senna] 2 tab PO HS 04/19/16 Simethicone 80 mg PO DAILY 04/19/16 Simvastatin 40 mg PO HS 04/19/16 Acetaminophen [Pain Relief] 650 mg PO BID PRN #0 05/17/16 Insulin Sliding Scale [Novolog Vial Sliding Scale -] 1 vial SQ ACHS units 05/17 Polyethylene Glycol 3350 [Miralax 119 gm Btl -] 17 gm PO BID bottle 05/17/16 Torsemide [Demadex -] 40 mg PO DAILY tablet 05/17/16 Vitamin A & D Top Oint - 1 applic TP BID tube 05/17/16 Cyanocobalamin [Vitamin B12 -] 1,000 mcg PO DAILY 06/03/16 Epoetin Dawood [Procrit] 10,000 unit IJ ASDIR 06/03/16 Fluticasone Prop 0.05% Nasal [Flonase -] 1 spray NS DAILY 06/03/16 Glycerin/Cellulose [Jigna-Lub Gel] 10 ml PO BID 06/03/16 Levothyroxine [Synthroid -] 50 mcg PO DAILY@0700 06/03/16 Lidocaine 5% Patch [Lidoderm Patch -] 1 patch TP DAILY 06/03/16 Oxycodone HCl/Acetaminophen [Percocet 5-325 mg Tablet] 2 tab PO Q8H PRN Potassium Chloride [Klor-Con] 20 meq PO DAILY 06/03/16 Current Medications Acetaminophen (Tylenol -) 650 mg PO Q12H PRN PRN Reason: PAIN Last Admin: 06/05/16 03:31 Dose: 650 mg Acetaminophen (Tylenol -) 325 mg PO Q8H PRN PRN Reason: FEVER OR PAIN Albuterol Sulfate (Ventolin 0.083% Nebulizer Soln -) 1 amp NEB Q6HPO [facility] Last Admin: 06/05/16 11:25 Dose: 1 amp Atorvastatin Calcium (Lipitor -) 20 mg PO HS [facility] Last Admin: 06/04/16 22:02 Dose: 20 mg Calcium Acetate (Phoslo -) 667 mg PO TIDCM [facility] Last Admin: 06/05/16 11:28 Dose: 667 mg Carvedilol (Coreg -) 12.5 mg PO BID [facility] Last Admin: 06/05/16 11:30 Dose: Not Given Collagenase (Santyl -) 1 applic TP DAILY [facility] Last Admin: 06/04/16 17:46 Dose: 1 applic Cyanocobalamin (Vitamin B12 -) 1,000 mcg PO DAILY [facility] Last Admin: 06/05/16 09:24 Dose: 1,000 mcg Fluticasone Propionate (Flonase -) 1 spray NS DAILY [facility] Last Admin: 06/05/16 09:25 Dose: 1 spray Folic Acid (Folic Acid -) 1 mg PO DAILY [facility] Last Admin: 06/05/16 09:24 Dose: 1 mg Furosemide (Lasix Injection -) 40 mg IVPUSH BID@0600,1400 [facility] Last Admin: 06/05/16 06:06 Dose: 40 mg Gabapentin (Neurontin -) 300 mg PO DAILY [facility] Last Admin: 06/05/16 09:25 Dose: 300 mg Heparin Sodium (Porcine) (Heparin -) 5,000 unit SQ BID [facility] Last Admin: 06/05/16 09:25 Dose: 5,000 unit Piperacillin Sod/Tazobactam Sod (Zosyn 2.25gm Ivpb (Pre-Docked)) 50 mls @ 100 mls/hr IVPB Q8H-IV [facility] Last Admin: 06/05/16 09:26 Dose: 100 mls/hr Insulin Aspart (Novolog Vial Sliding Scale -) 1 vial SQ ACHS [facility] PRN Reason: Protocol Last Admin: 06/05/16 11:28 Dose: Not Given Insulin Detemir (Levemir Vial) 20 units SQ ACBK [facility] Last Admin: 06/05/16 07:13 Dose: 20 units Isosorbide Mononitrate (Imdur -) 30 mg PO DAILY [facility] Last Admin: 06/05/16 11:30 Dose: Not Given Levothyroxine Sodium (Synthroid -) 50 mcg PO DAILY@0700 [facility] Last Admin: 06/05/16 06:10 Dose: 50 mcg Lidocaine (Lidoderm Patch -) 1 patch TP DAILY [facility] Last Admin: 06/05/16 09:38 Dose: 1 patch Loratadine (Claritin -) 10 mg PO DAILY [facility] Last Admin: 06/05/16 09:25 Dose: 10 mg Metoclopramide HCl (Reglan -) 5 mg PO TID [facility] Last Admin: 06/05/16 06:08 Dose: 5 mg Ondansetron HCl (Zofran Injection) 8 mg IVPB Q8H PRN PRN Reason: NAUSEA AND/OR VOMITING Last Admin: 06/04/16 15:01 Dose: 8 mg Oxycodone HCl (Roxicodone -) 5 mg PO Q8H PRN Last Admin: 06/05/16 09:23 Dose: 5 mg Polyethylene Glycol (Miralax (For Daily Use) -) 17 gm PO BID [facility] Last Admin: 06/05/16 09:35 Dose: Not Given Senna (Senna -) 2 tab PO HS [facility] Last Admin: 06/04/16 22:05 Dose: 2 tab Simethicone (Mylicon -) 80 mg PO DAILY [facility] Last Admin: 06/05/16 09:25 Dose: 80 mg Vitamin A/Vitamin D (Vitamin A & D Top Oint -) 1 applic TP BID [facility] Last Admin: 06/05/16 09:35 Dose: 1 applic Vital Signs - 24 hr 06/04/16 06/04/16 06/05/16 21:00 21:53 01:18 Temperature 98.5 F Pulse Rate 74 Respiratory 18 Rate Blood Pressure 113/46 O2 Sat by Pulse 93 L 97 Oximetry (%) 06/05/16 06/05/16 06/05/16 06:00 09:55 11:25 Temperature 98.2 F 98.3 F Pulse Rate 59 L 60 65 Respiratory 18 18 Rate Blood Pressure 113/50 116/48 O2 Sat by Pulse 92 L Oximetry (%) Intake & Output 06/03/16 06/04/16 06/05/16 06/06/16 07:59 07:59 07:59 07:59 Intake Total 1480 250 Balance 1480 250 Weight 182 lb 277 lb 6 oz NAD, calm, obese sleepy JVD elevated, neck supple RRR nl s1, s2 2/6 murmur at sternal border and apex bibasilar rales, poor effort + bs soft obese edematous nt nd + anasarca with 1-2+ edema to torso ext without cyanosis/clubbing diminshed dp/pt erythema/venous stasis changes/skin excoriations and peau d'orange changes of LE skin aaox3 CBC, BMP 06/05/16 06:50 06/05/16 06:50 Laboratory Tests 06/03/16 06/03/16 06/03/16 19:23 19:30 19:35 Hgb 7.8 L D INR 1.36 H Total Bilirubin 0.3 AST 9 L D ALT 7 L D Alkaline Phosphatase 113 Albumin 2.2 L Stool Occult Blood 06/03/16 22:25 Hgb INR Total Bilirubin AST ALT Alkaline Phosphatase Albumin Stool Occult Blood Negative Echo 07/11: mild-mod decr EF--global; nl RV; mild LAE; mild-mod MR/TR; RVSP 30-40 ; small peric effusion; + pleural eff echo 12/06/15: mild lvh. nl lv/rv, Septal motion c/w RV volume overload. Ab diastology. mild cheryl, mild-mod mr, mild as, mod-sev tr, rvsp 50, mod pericardial eff, no tamponade. pleural effusion. echo 12/11/15: focused, Nl lv. trivial pericardial eff. Pleural effusion. EKG: sb 58 bpm. anterolateral and lateral TWI, similar to priors. 71 yo with h/o HFpEF, CAD s/p [place], HTN, HL, pHTN, MIRIAM, o2 dep't copd, CKD (bline cr 1.5-1.9), IDDM, hypothyroid and chronic LLE cellulitis p/w anemia, hyperkalemia. chronic HFpEF/pulm HTN - 07/11 with mild-mod dec EF, but most recently with nl LV function. - s/p transfusion. Initiated on lasix 40 mg IV BID with improvement in BUN and cr. - currently with significant total body volume overload and anasarca. Although unclear if patient is intravascularly depleted. Diuresis may be challenging due to history of cardiorenal syndrome and albumin of 2.2. - previously diuresed with lasix 80 mg IV BID what rechallenge with this dose. Patient incontinent and unable to stand for weights. Unclear if weight by lift scale are accurate. Will be difficult to monitor response to diuresis. - avoid hypotension. Will decrease dose of carvedilol. BIPAP when sleeping, keep head of bed elevated to optimize pulmonary status. Nutrition to optimize nutritional status. CAD, h/o NSTEMI: - has previously refused stress tests. h/o NSTEMI x 2 (2012, 2014) in setting of demand (sepsis/anemia) -MATEO deferred previously due to labile creat's--no change; -cath previously deferred due to: pt preference; hi risk of vascular complications (obese habitus), hi risk of BERNARDINO, and h/o recurrent anemia, possible occult GIB - currently without angianal sx's. EKG unchanged. Con't ASA, statin, coreg imdur. CKD/michael: -baseline creat 1.4-1.8 - chronically elevated bun. monitor with diuresis anemia: -chronic, baseline runs 8s-9s; -freq acute drops/PRBCs in past -s/p transfusion HTN: -running low here. will decrease dose of carvedilol as mentioned.
[2016-06-05] MEDS ORDERED: FUROSEMIDE 40 MG/4 ML INJECTABLE VIAL IVPUSH SCH ×2 (16:31→16:35)
[2016-06-05] MEDS: COLLAGENASE CLOSTRIDIUM HIST. 30 GRAMS TUBE TP SCH (18:24)
--- NOTE | 2016-06-05 19:26 | PN ---
Progress Note (short form) - Note Progress Note: Vascular Surgery Pt seen and examined. Left forefoot with odor and necrotic tissue. Will do debridement rhiannon. Set up for HBO jun 14 2016 as outpt. Gaurav Alonso DO
[2016-06-05] MEDS ORDERED: PT OWN MED DRAWER 7, Y5N ONE (23:24)
[2016-06-05] MEDS: ATORVASTATIN CA 20 MG TABLET (FP) PO SCH (23:45)
[2016-06-05] MEDS: CARVEDILOL 6.25 MG TABLET (FP) PO SCH (23:45)
[2016-06-05] MEDS: SENNOSIDES 8.6MG TABLET (FP) PO SCH (23:46)
[2016-06-05] MEDS: NYSTATIN POWDER 100,000 UNITS/GM - 15 GM TOPICAL POWDER TP SCH (23:46)
[2016-06-06] MEDS: PIPERACILLIN/TAZOB 2.25 GM 50 ML IVPB SCH ×3 (03:00→17:31)
[2016-06-06] MEDS: ALBUTEROL SO4 0.083% IH SOL 2.5 MG/3 ML VIAL.NEB. NEB SCH ×4 (05:25→23:09)
[2016-06-06] MEDS: FUROSEMIDE 40 MG/4 ML INJECTABLE VIAL IVPUSH SCH ×2 (07:18→16:58)
[2016-06-06] MEDS: METOCLOPRAMIDE HCL 10 MG TABLET (FP) PO SCH ×3 (07:18→22:24)
[2016-06-06] MEDS: INSULIN DETEMIR 100 UNITS/ML MDV SQ SCH (07:19)
[2016-06-06] MEDS: LEVOTHYROXINE NA 50 MCG TABLET (FP) PO SCH (07:19)
[2016-06-06] MEDS: INSULIN SLIDING SCALE (NOVOLOG) 1 VIAL SQ SCH ×4 (07:29→22:24)
[2016-06-06] MEDS ORDERED: DEXTROSE 5%-NORMAL SALINE 1,000 ML IV SCH ×2 (09:15→14:53)
[2016-06-06 09:27] LABS: THYROID STIMULATING HORMONE 6.48 uIU/ml (0.358-3.74)
[2016-06-06] MEDS: CALCIUM ACETATE 667 MG CAPSULE (FP) PO SCH ×3 (09:29→17:52)
[2016-06-06] MEDS ORDERED: PT OWN MED DRAWER 7, Y5N ONE ×2 (09:34→12:19)
[2016-06-06] MEDS: LIDOCAINE 5% TOPICAL PATCH TP SCH (09:38)
[2016-06-06] MEDS: FLUTICASONE PROP 0.05% 16 GM NASAL SPRAY NS SCH (09:39)
--- NOTE | 2016-06-06 11:00 | PN ---
Progress Note, Physician Chief Complaint: in bed afebrile VSS NAD BGM 115 NPO for OR for L foot debridement; started on low dose IVF; L foot pain AxOx3 pt able and competent to give consent - Current Medication List Current Medications: Active Medications Acetaminophen (Tylenol -) 650 mg PO Q12H PRN PRN Reason: PAIN Last Admin: 06/05/16 03:31 Dose: 650 mg Acetaminophen (Tylenol -) 325 mg PO Q8H PRN PRN Reason: FEVER OR PAIN Albuterol Sulfate (Ventolin 0.083% Nebulizer Soln -) 1 amp NEB Q6HPO [facility] Last Admin: 06/06/16 05:25 Dose: 1 amp Atorvastatin Calcium (Lipitor -) 20 mg PO HS [facility] Last Admin: 06/05/16 23:45 Dose: 20 mg Calcium Acetate (Phoslo -) 667 mg PO TIDCM [facility] Last Admin: 06/06/16 09:29 Dose: Not Given Carvedilol (Coreg -) 6.25 mg PO BID [facility] Last Admin: 06/05/16 23:45 Dose: 6.25 mg Collagenase (Santyl -) 1 applic TP DAILY [facility] Last Admin: 06/05/16 18:24 Dose: 1 applic Cyanocobalamin (Vitamin B12 -) 1,000 mcg PO DAILY [facility] Last Admin: 06/05/16 09:24 Dose: 1,000 mcg Fluticasone Propionate (Flonase -) 1 spray NS DAILY [facility] Last Admin: 06/06/16 09:39 Dose: 1 spray Folic Acid (Folic Acid -) 1 mg PO DAILY [facility] Last Admin: 06/05/16 09:24 Dose: 1 mg Furosemide (Lasix Injection -) 80 mg IVPUSH BID@0600,1400 [facility] Last Admin: 06/06/16 07:18 Dose: 80 mg Gabapentin (Neurontin -) 300 mg PO DAILY [facility] Last Admin: 06/05/16 09:25 Dose: 300 mg Heparin Sodium (Porcine) (Heparin -) 5,000 unit SQ BID [facility] Last Admin: 06/05/16 23:45 Dose: 5,000 unit Piperacillin Sod/Tazobactam Sod (Zosyn 2.25gm Ivpb (Pre-Docked)) 50 mls @ 100 mls/hr IVPB Q8H-IV [facility] Last Admin: 06/06/16 09:38 Dose: 100 mls/hr Dextrose/Sodium Chloride (D5-Ns -) 1,000 mls @ 42 mls/hr IV ASDIR [facility] Last Admin: 06/06/16 09:15 Dose: 42 mls/hr Insulin Aspart (Novolog Vial Sliding Scale -) 1 vial SQ ACHS [facility] PRN Reason: Protocol Last Admin: 06/06/16 07:29 Dose: Not Given Insulin Detemir (Levemir Vial) 20 units SQ ACBK [facility] Last Admin: 06/06/16 07:19 Dose: 20 units Isosorbide Mononitrate (Imdur -) 30 mg PO DAILY [facility] Last Admin: 06/05/16 11:30 Dose: Not Given Levothyroxine Sodium (Synthroid -) 50 mcg PO DAILY@0700 [facility] Last Admin: 06/06/16 07:19 Dose: 50 mcg Lidocaine (Lidoderm Patch -) 1 patch TP DAILY [facility] Last Admin: 06/06/16 09:38 Dose: 1 patch Loratadine (Claritin -) 10 mg PO DAILY [facility] Last Admin: 06/05/16 09:25 Dose: 10 mg Metoclopramide HCl (Reglan -) 5 mg PO TID [facility] Last Admin: 06/06/16 07:18 Dose: 5 mg Nystatin (Nystop Powder -) 1 applic TP BID [facility] Last Admin: 06/05/16 23:46 Dose: 1 applic Ondansetron HCl (Zofran Injection) 8 mg IVPB Q8H PRN PRN Reason: NAUSEA AND/OR VOMITING Last Admin: 06/04/16 15:01 Dose: 8 mg Oxycodone HCl (Roxicodone -) 5 mg PO Q8H PRN Last Admin: 06/05/16 09:23 Dose: 5 mg Polyethylene Glycol (Miralax (For Daily Use) -) 17 gm PO BID [facility] Last Admin: 06/05/16 23:45 Dose: 17 gm Senna (Senna -) 2 tab PO HS [facility] Last Admin: 06/05/16 23:46 Dose: 2 tab Simethicone (Mylicon -) 80 mg PO DAILY [facility] Last Admin: 06/05/16 09:25 Dose: 80 mg Vitamin A/Vitamin D (Vitamin A & D Top Oint -) 1 applic TP BID [facility] Last Admin: 06/05/16 23:46 Dose: 1 applic - Objective Vital Signs: Vital Signs Temperature 98.8 F 06/05/16 22:00 Pulse Rate 78 06/06/16 05:56 Respiratory Rate 18 06/05/16 22:00 Blood Pressure 117/51 06/05/16 22:00 O2 Sat by Pulse Oximetry (%) 99 06/06/16 05:56 Constitutional: Yes: No Distress, Calm Eyes: Yes: Conjunctiva Clear HENT: Yes: Atraumatic Neck: Yes: Supple Cardiovascular: Yes: Regular Rate and Rhythm Respiratory: Yes: CTA Bilaterally Gastrointestinal: Yes: Soft. No: Distention, Tenderness Genitourinary: No: Hematuria Musculoskeletal: No: Joint Stiffness, Joint Swelling Extremities: No: Cold, Cool Edema: Yes Wound/Incision: Yes: Draining, Reddened (left foot wound) Neurological: Yes: WNL, Alert, Oriented ...Motor Strength: WNL (chronic legs wekaness) Psychiatric: Yes: WNL, Alert, Oriented. No: Agitated, Suicidal Ideation Labs: CBC, BMP 06/05/16 06:50 06/05/16 06:50 INR, PTT INR 1.36 (0.82-1.09) H 06/03/16 19:35 - ....Imaging Other: Report Reviewed Assessment/Plan The patient is a 71 year old female, with a significant past medical history of CAD, CHF, [place] x2, HTN, HLD, COPD (O2 dependant 2L), renal insufficiency, DM, who presents to the emergency department via ems from [facility] with anemia, hyperK, foot wound and infection DM for L foot debridement today, might need amputation; pt is non-ambulatory and bed-bound for years. NO absolute contraindications for the above procedure IV antibiotics per ID surgery eval, HBO and wound care pain meds, DVT pfx f/u labs and Cx pt to sign HCP d/w pt and staff
[2016-06-06] MEDS: LORATADINE 10 MG TABLET PO SCH (11:19)
[2016-06-06] MEDS: FOLIC ACID 1 MG TABLET (FP) PO SCH (11:20)
[2016-06-06] MEDS: CARVEDILOL 6.25 MG TABLET (FP) PO SCH ×2 (11:20→22:53)
[2016-06-06] MEDS: SIMETHICONE 80 MG TAB.CHEW (FP) PO SCH (11:20)
[2016-06-06] MEDS: ISOSORBIDE MONONITRATE 30 MG TAB.SR.24H (FP) PO SCH (11:20)
[2016-06-06] MEDS: POLYETHYLENE GLYCOL 3350 119 GM BTL PO SCH ×2 (11:20→22:23)
[2016-06-06] MEDS: HEPARIN NA (PORCINE) 5,000 UNITS/ML 1ML VIAL SQ SCH ×2 (11:20→22:23)
[2016-06-06] MEDS: GABAPENTIN 300 MG CAPSULE (FP) PO SCH (11:20)
[2016-06-06] MEDS: CYANOCOBALAMIN 1,000 MCG TABLET (FP) PO SCH (11:21)
[2016-06-06] MEDS: VITAMINS A AND D TOPICAL OINTMENT 60 GM TUBE TP SCH ×2 (12:40→22:25)
[2016-06-06] MEDS ORDERED: BUPIVACAINE HCL/PF 0.5% (5MG/ML) 10 ML VIAL ONE (13:58)
[2016-06-06] MEDS ORDERED: MIDAZOLAM HCL 2 MG/2 ML SINGLE DOSE VIAL ONE (14:03)
[2016-06-06] MEDS ORDERED: ePHEDrine SULFATE 50 MG/1 ML AMPULE ONE (14:18)
--- NOTE | 2016-06-06 14:38 | OP ---
Operative Note - Note: Operative Date: 06/06/16 Pre-Operative Diagnosis: Left forefoot necrotic ulcer Operation: Excisional debridement skin, subcutaneous tissue, muscle right forefoot. Findings: necrotic ulcer with eschar. PUs found Cultured and sent off Post-Operative Diagnosis: Same as Pre-op Surgeon: Gaurav Alonso Anesthesia: Spinal Estimated Blood Loss (mls): 10 Operative Report Dictated: Yes
[2016-06-06] MEDS ORDERED: LACTATED RINGERS SOLUTION 1,000 ML IV SCH (14:45)
[2016-06-06] MEDS ORDERED: ONDANSETRON 4 MG/2 ML VIAL IVPB PRN (14:53)
[2016-06-06] MEDS: COLLAGENASE CLOSTRIDIUM HIST. 30 GRAMS TUBE TP SCH (16:58)
[2016-06-06] MEDS: NYSTATIN POWDER 100,000 UNITS/GM - 15 GM TOPICAL POWDER TP SCH ×2 (17:31→22:24)
[2016-06-06] MEDS: oxyCODONE HCL 5 MG TABLET PO PRN (18:46)
[2016-06-06] MEDS: ACETAMINOPHEN 325 MG TABLET (FP) PO PRN (18:48)
[2016-06-06] MEDS: ATORVASTATIN CA 20 MG TABLET (FP) PO SCH (22:23)
[2016-06-06] MEDS: SENNOSIDES 8.6MG TABLET (FP) PO SCH (22:25)
[2016-06-07] MEDS: PIPERACILLIN/TAZOB 2.25 GM 50 ML IVPB SCH ×3 (02:37→17:45)
[2016-06-07] MEDS ORDERED: PT OWN MED DRAWER 7, Y5N ONE ×4 (06:01→22:14)
[2016-06-07] MEDS: FUROSEMIDE 40 MG/4 ML INJECTABLE VIAL IVPUSH SCH ×2 (06:29→14:56)
[2016-06-07] MEDS: METOCLOPRAMIDE HCL 10 MG TABLET (FP) PO SCH ×3 (06:31→22:41)
[2016-06-07] MEDS: INSULIN DETEMIR 100 UNITS/ML MDV SQ SCH (06:32)
[2016-06-07] MEDS: LEVOTHYROXINE NA 50 MCG TABLET (FP) PO SCH (06:33)
[2016-06-07] MEDS: INSULIN SLIDING SCALE (NOVOLOG) 1 VIAL SQ SCH ×4 (06:33→22:48)
[2016-06-07] MEDS: ACETAMINOPHEN 325 MG TABLET (FP) PO PRN ×3 (06:34→22:53)
[2016-06-07] MEDS: oxyCODONE HCL 5 MG TABLET PO PRN ×2 (06:35→14:47)
[2016-06-07] MEDS: ALBUTEROL SO4 0.083% IH SOL 2.5 MG/3 ML VIAL.NEB. NEB SCH ×3 (06:41→17:47)
[2016-06-07 08:48] LABS: BASOPHIL 0.4 % (0-2.0); MCH 27.7 pg (25.7-33.7); MCHC 30.7 g/dl (32.0-36.0); MEAN CELL VOLUME 90.2 fl (80-96); MEAN PLT VOLUME 7.5 fl (7.5-11.1); NEUTROPHILS 77.7 % (42.8-82.8); PLATELET COUNT 213 K/MM3 (134-434)
[2016-06-07] MEDS: CALCIUM ACETATE 667 MG CAPSULE (FP) PO SCH ×3 (09:03→17:44)
[2016-06-07] MEDS: FOLIC ACID 1 MG TABLET (FP) PO SCH (09:04)
[2016-06-07] MEDS: GABAPENTIN 300 MG CAPSULE (FP) PO SCH (09:04)
[2016-06-07] MEDS: ISOSORBIDE MONONITRATE 30 MG TAB.SR.24H (FP) PO SCH (09:04)
[2016-06-07] MEDS: CARVEDILOL 6.25 MG TABLET (FP) PO SCH ×2 (09:04→22:40)
[2016-06-07] MEDS: SIMETHICONE 80 MG TAB.CHEW (FP) PO SCH (09:04)
[2016-06-07] MEDS: LORATADINE 10 MG TABLET PO SCH (09:04)
[2016-06-07] MEDS: FLUTICASONE PROP 0.05% 16 GM NASAL SPRAY NS SCH (09:05)
[2016-06-07] MEDS: HEPARIN NA (PORCINE) 5,000 UNITS/ML 1ML VIAL SQ SCH ×2 (09:05→22:40)
[2016-06-07] MEDS: LIDOCAINE 5% TOPICAL PATCH TP SCH (09:16)
[2016-06-07 09:22] LABS: ALBUMIN 2.1 g/dl (3.4-5.0); CALCIUM 8.4 mg/dL (8.5-10.1); FERRITIN 340.542 ng/ml (6.9-282.5)
[2016-06-07 09:26] LABS: BILIRUBIN,TOTAL 0.6 mg/dL (0.2-1.0); CREATININE 1.7 mg/dL (0.55-1.02); TOT PROT 5.9 g/dl (6.4-8.2)
[2016-06-07] MEDS: NYSTATIN POWDER 100,000 UNITS/GM - 15 GM TOPICAL POWDER TP SCH ×2 (10:00→22:41)
[2016-06-07] MEDS: COLLAGENASE CLOSTRIDIUM HIST. 30 GRAMS TUBE TP SCH (11:00)
[2016-06-07] MEDS: VITAMINS A AND D TOPICAL OINTMENT 60 GM TUBE TP SCH ×2 (11:24→22:41)
--- NOTE | 2016-06-07 11:35 | PN ---
Progress Note, Physician Chief Complaint: c/o intermittent foot pain; no CP/SOB; events and meds d/w pt and her sister Patricia at pt's request - Current Medication List Current Medications: Active Medications Acetaminophen (Tylenol -) 650 mg PO Q12H PRN PRN Reason: PAIN Acetaminophen (Tylenol -) 325 mg PO Q8H PRN PRN Reason: FEVER OR PAIN Last Admin: 06/07/16 06:34 Dose: 325 mg Albuterol Sulfate (Ventolin 0.083% Nebulizer Soln -) 1 amp NEB Q6HPO [facility] Last Admin: 06/07/16 06:41 Dose: 1 amp Atorvastatin Calcium (Lipitor -) 20 mg PO HS [facility] Last Admin: 06/06/16 22:23 Dose: 20 mg Calcium Acetate (Phoslo -) 667 mg PO TIDCM [facility] Last Admin: 06/07/16 09:03 Dose: 667 mg Carvedilol (Coreg -) 6.25 mg PO BID [facility] Last Admin: 06/07/16 09:04 Dose: 6.25 mg Collagenase (Santyl -) 1 applic TP DAILY [facility] Last Admin: 06/07/16 11:00 Dose: 1 applic Cyanocobalamin (Vitamin B12 -) 1,000 mcg PO DAILY [facility] Fluticasone Propionate (Flonase -) 1 spray NS DAILY [facility] Last Admin: 06/07/16 09:05 Dose: 1 spray Folic Acid (Folic Acid -) 1 mg PO DAILY [facility] Last Admin: 06/07/16 09:04 Dose: 1 mg Furosemide (Lasix Injection -) 80 mg IVPUSH BID@0600,1400 [facility] Last Admin: 06/07/16 06:29 Dose: 80 mg Gabapentin (Neurontin -) 300 mg PO DAILY [facility] Last Admin: 06/07/16 09:04 Dose: 300 mg Heparin Sodium (Porcine) (Heparin -) 5,000 unit SQ BID [facility] Last Admin: 06/07/16 09:05 Dose: 5,000 unit Piperacillin Sod/Tazobactam Sod (Zosyn 2.25gm Ivpb (Pre-Docked)) 50 mls @ 100 mls/hr IVPB Q8H-IV [facility] Last Admin: 06/07/16 09:07 Dose: 100 mls/hr Insulin Aspart (Novolog Vial Sliding Scale -) 1 vial SQ ACHS [facility] PRN Reason: Protocol Last Admin: 06/07/16 11:24 Dose: Not Given Insulin Detemir (Levemir Vial) 20 units SQ ACBK [facility] Last Admin: 06/07/16 06:32 Dose: 20 units Isosorbide Mononitrate (Imdur -) 30 mg PO DAILY [facility] Last Admin: 06/07/16 09:04 Dose: 30 mg Levothyroxine Sodium (Synthroid -) 50 mcg PO DAILY@0700 [facility] Last Admin: 06/07/16 06:33 Dose: 50 mcg Lidocaine (Lidoderm Patch -) 1 patch TP DAILY [facility] Last Admin: 06/07/16 09:16 Dose: 1 patch Loratadine (Claritin -) 10 mg PO DAILY [facility] Last Admin: 06/07/16 09:04 Dose: 10 mg Metoclopramide HCl (Reglan -) 5 mg PO TID [facility] Last Admin: 06/07/16 06:31 Dose: 5 mg Nystatin (Nystop Powder -) 1 applic TP BID [facility] Last Admin: 06/07/16 10:00 Dose: 1 applic Ondansetron HCl (Zofran Injection) 8 mg IVPB Q8H PRN PRN Reason: NAUSEA AND/OR VOMITING Oxycodone HCl (Roxicodone -) 5 mg PO Q8H PRN Last Admin: 06/07/16 06:35 Dose: 5 mg Polyethylene Glycol (Miralax (For Daily Use) -) 17 gm PO BID [facility] Last Admin: 06/06/16 22:23 Dose: 17 grams Senna (Senna -) 2 tab PO HS [facility] Last Admin: 06/06/16 22:25 Dose: 2 tab Simethicone (Mylicon -) 80 mg PO DAILY [facility] Last Admin: 06/07/16 09:04 Dose: 80 mg Vitamin A/Vitamin D (Vitamin A & D Top Oint -) 1 applic TP BID [facility] Last Admin: 06/07/16 11:24 Dose: 1 applic - Objective Vital Signs: Vital Signs Temperature 98.7 F 06/07/16 07:27 Pulse Rate 72 06/07/16 09:00 Respiratory Rate 18 06/07/16 09:00 Blood Pressure 112/50 06/07/16 09:00 O2 Sat by Pulse Oximetry (%) 99 06/07/16 09:00 Constitutional: Yes: No Distress, Calm Eyes: Yes: Conjunctiva Clear HENT: Yes: Atraumatic Neck: Yes: Supple Cardiovascular: Yes: Regular Rate and Rhythm Respiratory: Yes: Diminished Gastrointestinal: Yes: Soft. No: Distention, Tenderness Musculoskeletal: No: Joint Stiffness, Joint Swelling Extremities: No: Cold, Cool Edema: Yes Peripheral Pulses WNL: Yes Integumentary: Yes: Rash (L foot), Venous Stasis Changes Neurological: Yes: Alert, Oriented ...Motor Strength: WNL (except chronic legs weakness) Psychiatric: Yes: Alert, Oriented. No: Agitated, Suicidal Ideation Labs: CBC, BMP 06/07/16 07:00 06/07/16 07:00 INR, PTT INR 1.36 (0.82-1.09) H 06/03/16 19:35 - ....Imaging Other: Report Reviewed Assessment/Plan The patient is a 71 year old female, with a significant past medical history of CAD, CHF, [place] x2, HTN, HLD, COPD (O2 dependant 2L), renal insufficiency, DM, who presents to the emergency department via ems from [facility] with anemia, hyperK, foot wound and infection DM s/p L foot debridement, wound care per surgery IV antibiotics per ID HBO in the future pain meds, DVT pfx f/u labs and Cx pt to sign HCP d/w pt and staff d/w pt and her sister Patricia
[2016-06-07] MEDS: POLYETHYLENE GLYCOL 3350 119 GM BTL PO SCH ×2 (12:30→22:41)
[2016-06-07] MEDS: CYANOCOBALAMIN 1,000 MCG TABLET (FP) PO SCH (12:30)
--- NOTE | 2016-06-07 12:55 | PN ---
Progress Note (short form) - Note Progress Note: Post op day#1.S/P Debredment of left foot under spinal anesthesia uneventful.Patient stable.No any anesthesia related problem.Patient dc from the anesthesia care.
--- NOTE | 2016-06-07 13:37 | PN ---
Progress Note, Physician History of Present Illness: POD #1 debridement L foot No c/o foot pain No fever/ chills - Current Medication List Current Medications: Active Medications Acetaminophen (Tylenol -) 650 mg PO Q12H PRN PRN Reason: PAIN Acetaminophen (Tylenol -) 325 mg PO Q8H PRN PRN Reason: FEVER OR PAIN Last Admin: 06/07/16 06:34 Dose: 325 mg Albuterol Sulfate (Ventolin 0.083% Nebulizer Soln -) 1 amp NEB Q6HPO [facility] Last Admin: 06/07/16 11:36 Dose: 1 amp Atorvastatin Calcium (Lipitor -) 20 mg PO HS [facility] Last Admin: 06/06/16 22:23 Dose: 20 mg Calcium Acetate (Phoslo -) 667 mg PO TIDCM [facility] Last Admin: 06/07/16 12:30 Dose: 667 mg Carvedilol (Coreg -) 6.25 mg PO BID [facility] Last Admin: 06/07/16 09:04 Dose: 6.25 mg Collagenase (Santyl -) 1 applic TP DAILY [facility] Last Admin: 06/07/16 11:00 Dose: 1 applic Cyanocobalamin (Vitamin B12 -) 1,000 mcg PO DAILY [facility] Last Admin: 06/07/16 12:30 Dose: 1,000 mcg Fluticasone Propionate (Flonase -) 1 spray NS DAILY [facility] Last Admin: 06/07/16 09:05 Dose: 1 spray Folic Acid (Folic Acid -) 1 mg PO DAILY [facility] Last Admin: 06/07/16 09:04 Dose: 1 mg Furosemide (Lasix Injection -) 80 mg IVPUSH BID@0600,1400 [facility] Last Admin: 06/07/16 06:29 Dose: 80 mg Gabapentin (Neurontin -) 300 mg PO DAILY [facility] Last Admin: 06/07/16 09:04 Dose: 300 mg Heparin Sodium (Porcine) (Heparin -) 5,000 unit SQ BID [facility] Last Admin: 06/07/16 09:05 Dose: 5,000 unit Piperacillin Sod/Tazobactam Sod (Zosyn 2.25gm Ivpb (Pre-Docked)) 50 mls @ 100 mls/hr IVPB Q8H-IV [facility] Last Admin: 06/07/16 09:07 Dose: 100 mls/hr Insulin Aspart (Novolog Vial Sliding Scale -) 1 vial SQ ACHS [facility] PRN Reason: Protocol Last Admin: 06/07/16 11:24 Dose: Not Given Insulin Detemir (Levemir Vial) 20 units SQ ACBK [facility] Last Admin: 06/07/16 06:32 Dose: 20 units Isosorbide Mononitrate (Imdur -) 30 mg PO DAILY [facility] Last Admin: 06/07/16 09:04 Dose: 30 mg Levothyroxine Sodium (Synthroid -) 50 mcg PO DAILY@0700 [facility] Last Admin: 06/07/16 06:33 Dose: 50 mcg Lidocaine (Lidoderm Patch -) 1 patch TP DAILY [facility] Last Admin: 06/07/16 09:16 Dose: 1 patch Loratadine (Claritin -) 10 mg PO DAILY [facility] Last Admin: 06/07/16 09:04 Dose: 10 mg Metoclopramide HCl (Reglan -) 5 mg PO TID [facility] Last Admin: 06/07/16 13:15 Dose: 5 mg Nystatin (Nystop Powder -) 1 applic TP BID [facility] Last Admin: 06/07/16 10:00 Dose: 1 applic Ondansetron HCl (Zofran Injection) 8 mg IVPB Q8H PRN PRN Reason: NAUSEA AND/OR VOMITING Oxycodone HCl (Roxicodone -) 5 mg PO Q8H PRN Last Admin: 06/07/16 06:35 Dose: 5 mg Polyethylene Glycol (Miralax (For Daily Use) -) 17 gm PO BID [facility] Last Admin: 06/07/16 12:30 Dose: 17 grams Senna (Senna -) 2 tab PO HS [facility] Last Admin: 06/06/16 22:25 Dose: 2 tab Simethicone (Mylicon -) 80 mg PO DAILY [facility] Last Admin: 06/07/16 09:04 Dose: 80 mg Vitamin A/Vitamin D (Vitamin A & D Top Oint -) 1 applic TP BID [facility] Last Admin: 06/07/16 11:24 Dose: 1 applic - Objective Vital Signs: Vital Signs Temperature 98.7 F 06/07/16 07:27 Pulse Rate 72 06/07/16 09:00 Respiratory Rate 18 06/07/16 09:00 Blood Pressure 112/50 06/07/16 09:00 O2 Sat by Pulse Oximetry (%) 98 06/07/16 11:35 Constitutional: Yes: No Distress Eyes: Yes: Conjunctiva Clear Cardiovascular: Yes: Regular Rate and Rhythm, S1, S2 Respiratory: Yes: CTA Bilaterally Gastrointestinal: Yes: Normal Bowel Sounds, Soft, Abdomen, Obese. No: Tenderness Extremities: Yes: Other (post op dressing in place L foot) Labs: CBC, BMP 06/07/16 07:00 06/07/16 07:00 INR, PTT INR 1.36 (0.82-1.09) H 06/03/16 19:35 Assessment/Plan Necrotic L foot ulcer s/p debridement Recurrent LE cellulitis- improved Continue empiric zosyn Local wound care
--- NOTE | 2016-06-07 15:34 | PN ---
Progress Note (short form) - Note Progress Note: Patient seen this morning and dressing changed. Patient reports some pain in left foot when touched. Denies fever/chills. Last Vital Signs Temp Pulse Resp BP Pulse Ox 97.3 F L 70 24 117/48 98 06/07/16 14:06 06/07/16 14:06 06/07/16 14:06 06/07/16 14:06 06/07/16 11:35 CBC, BMP 06/07/16 07:00 06/07/16 07:00 Exam: Gen: NAD LLE: left dorsal aspect of foot with 9x9cm distal area below proximal area with eschar, s/p debridement, improved odor and improved suurounding erythema, patient tolerated dressing change on rounds Problem List - Problems (1) Ulcer of foot Assessment/Plan: POD#1 s/p Excisional debridement left forefoot Dressing changed on rounds Continue daily dressing changes with santyl, wet to dry dressing, wrap with kerlex Code(s): L97.509 - NON-PRESSURE CHRONIC ULCER OTH PRT UNSP FOOT W UNSP SEVERITY Qualifiers: Laterality: left Non-pressure ulcer stage: unspecified non-pressure ulcer stage Qualified Code(s): L97.529 - Non-pressure chronic ulcer of other part of left foot with unspecified severity
--- NOTE | 2016-06-07 16:20 | PN ---
Progress Note (short form) - Note Progress Note: CC: edema/pre-operative clearance S: Feels well s/p surgery. + pain at LE. no cp, palps, dizziness, sob. Appetite improving. Current Medications Acetaminophen (Tylenol -) 650 mg PO Q12H PRN PRN Reason: PAIN Acetaminophen (Tylenol -) 325 mg PO Q8H PRN PRN Reason: FEVER OR PAIN Last Admin: 06/07/16 14:52 Dose: 325 mg Albuterol Sulfate (Ventolin 0.083% Nebulizer Soln -) 1 amp NEB Q6HPO [facility] Last Admin: 06/07/16 11:36 Dose: 1 amp Atorvastatin Calcium (Lipitor -) 20 mg PO HS [facility] Last Admin: 06/06/16 22:23 Dose: 20 mg Calcium Acetate (Phoslo -) 667 mg PO TIDCM [facility] Last Admin: 06/07/16 12:30 Dose: 667 mg Carvedilol (Coreg -) 6.25 mg PO BID [facility] Last Admin: 06/07/16 09:04 Dose: 6.25 mg Collagenase (Santyl -) 1 applic TP DAILY [facility] Last Admin: 06/07/16 11:00 Dose: 1 applic Cyanocobalamin (Vitamin B12 -) 1,000 mcg PO DAILY [facility] Last Admin: 06/07/16 12:30 Dose: 1,000 mcg Fluticasone Propionate (Flonase -) 1 spray NS DAILY [facility] Last Admin: 06/07/16 09:05 Dose: 1 spray Folic Acid (Folic Acid -) 1 mg PO DAILY [facility] Last Admin: 06/07/16 09:04 Dose: 1 mg Furosemide (Lasix Injection -) 80 mg IVPUSH BID@0600,1400 [facility] Last Admin: 06/07/16 14:56 Dose: 80 mg Gabapentin (Neurontin -) 300 mg PO DAILY [facility] Last Admin: 06/07/16 09:04 Dose: 300 mg Heparin Sodium (Porcine) (Heparin -) 5,000 unit SQ BID [facility] Last Admin: 06/07/16 09:05 Dose: 5,000 unit Piperacillin Sod/Tazobactam Sod (Zosyn 2.25gm Ivpb (Pre-Docked)) 50 mls @ 100 mls/hr IVPB Q8H-IV [facility] Last Admin: 06/07/16 09:07 Dose: 100 mls/hr Insulin Aspart (Novolog Vial Sliding Scale -) 1 vial SQ ACHS [facility] PRN Reason: Protocol Last Admin: 06/07/16 11:24 Dose: Not Given Insulin Detemir (Levemir Vial) 20 units SQ ACBK [facility] Last Admin: 06/07/16 06:32 Dose: 20 units Isosorbide Mononitrate (Imdur -) 30 mg PO DAILY [facility] Last Admin: 06/07/16 09:04 Dose: 30 mg Levothyroxine Sodium (Synthroid -) 50 mcg PO DAILY@0700 [facility] Last Admin: 06/07/16 06:33 Dose: 50 mcg Lidocaine (Lidoderm Patch -) 1 patch TP DAILY [facility] Last Admin: 06/07/16 09:16 Dose: 1 patch Loratadine (Claritin -) 10 mg PO DAILY [facility] Last Admin: 06/07/16 09:04 Dose: 10 mg Metoclopramide HCl (Reglan -) 5 mg PO TID [facility] Last Admin: 06/07/16 13:15 Dose: 5 mg Nystatin (Nystop Powder -) 1 applic TP BID [facility] Last Admin: 06/07/16 10:00 Dose: 1 applic Ondansetron HCl (Zofran Injection) 8 mg IVPB Q8H PRN PRN Reason: NAUSEA AND/OR VOMITING Oxycodone HCl (Roxicodone -) 5 mg PO Q8H PRN Last Admin: 06/07/16 14:47 Dose: 5 mg Polyethylene Glycol (Miralax (For Daily Use) -) 17 gm PO BID [facility] Last Admin: 06/07/16 12:30 Dose: 17 grams Senna (Senna -) 2 tab PO HS [facility] Last Admin: 06/06/16 22:25 Dose: 2 tab Simethicone (Mylicon -) 80 mg PO DAILY [facility] Last Admin: 06/07/16 09:04 Dose: 80 mg Vitamin A/Vitamin D (Vitamin A & D Top Oint -) 1 applic TP BID [facility] Last Admin: 06/07/16 11:24 Dose: 1 applic Vital Signs - 24 hr 06/06/16 06/06/16 06/06/16 17:00 19:06 21:00 Temperature 98.4 F Pulse Rate 68 59 L Respiratory 20 Rate Blood Pressure 106/43 O2 Sat by Pulse 100 98 Oximetry (%) 06/06/16 06/06/16 06/07/16 22:31 23:09 01:00 Temperature Pulse Rate 58 L 57 L Respiratory 18 Rate Blood Pressure 100/34 O2 Sat by Pulse 98 95 Oximetry (%) 06/07/16 06/07/16 06/07/16 05:00 07:27 09:00 Temperature 98.7 F Pulse Rate 67 60 72 Respiratory 20 18 Rate Blood Pressure 101/55 112/50 O2 Sat by Pulse 95 99 Oximetry (%) 06/07/16 06/07/16 11:35 14:06 Temperature 97.3 F L Pulse Rate 70 Respiratory 24 Rate Blood Pressure 117/48 O2 Sat by Pulse 98 Oximetry (%) Intake & Output 06/05/16 06/06/16 06/07/16 06/08/16 07:59 07:59 07:59 07:59 Intake Total 1480 1485 1162 465 Output Total 5 Balance 1480 1485 1157 465 Weight 277 lb 6 oz 280 lb 282 lb NAD, calm, obese awake today JVD elevated, neck supple RRR nl s1, s2 2/6 murmur at sternal border and apex bibasilar rales, poor effort + bs soft obese edematous nt nd + anasarca with 1-2+ edema to dependent abd/torso ext without cyanosis/clubbing diminshed dp/pt erythema/venous stasis changes/skin excoriations and peau d'orange changes of LE skin aaox3 CBC, BMP 06/07/16 07:00 06/07/16 07:00 Laboratory Tests 06/07/16 07:00 Total Bilirubin 0.6 D AST 7 L D ALT 6 L Alkaline Phosphatase 98 Albumin 2.1 L Echo 07/11: mild-mod decr EF--global; nl RV; mild LAE; mild-mod MR/TR; RVSP 30-40 ; small peric effusion; + pleural eff echo 12/06/15: mild lvh. nl lv/rv, Septal motion c/w RV volume overload. Ab diastology. mild cheryl, mild-mod mr, mild as, mod-sev tr, rvsp 50, mod pericardial eff, no tamponade. pleural effusion. echo 12/11/15: focused, Nl lv. trivial pericardial eff. Pleural effusion. EKG: sb 58 bpm. anterolateral and lateral TWI, similar to priors. 71 yo with h/o HFpEF, CAD s/p [place], HTN, HL, pHTN, MIRIAM, o2 dep't copd, CKD (bline cr 1.5-1.9), IDDM, hypothyroid and chronic LLE cellulitis p/w anemia, hyperkalemia. Pre-op clearance - s/p OR debridement 06/06. RCRI 3 and bed-bound, nichole-operative CV risk estimated as high. - bp/hr well controlled - ongoing diuresis as mentioned below. chronic HFpEF/pulm HTN - 07/11 with mild-mod dec EF, but most recently with nl LV function. - currently with significant total body volume overload and anasarca. - s/p transfusion. Initiated on lasix 40 mg IV BID with improvement in BUN and cr --> titrated up to 80 mg IV BID (dosing on prior admits) - 06/07: BUN/CR stable if not slightly better. Sx may be improving (improved appetite), but no change on exam. Weights up but may not be accurate. Per nursing, diapers have been wet but unable quantitatively assess uop. Will give trial of 100 mg IV BID, low threshold to decrease back to 80 if BUN/creatinine doesn't improve. - avoid hypotension. BIPAP when sleeping, keep head of bed elevated to optimize pulmonary status. Nutrition to optimize nutritional status. CAD, h/o NSTEMI: - has previously refused stress tests. h/o NSTEMI x 2 (2012, 2014) in setting of demand (sepsis/anemia) -MATEO deferred previously due to labile creat's--no change; -cath previously deferred due to: pt preference; hi risk of vascular complications (obese habitus), hi risk of BERNARDINO, and h/o recurrent anemia, possible occult GIB - currently without angianal sx's. EKG unchanged. Con't statin, coreg imdur. Resume ASA if ok per surgery and from perspective of anemia. CKD/michael: -baseline creat 1.4-1.8 - chronically elevated bun. monitor with diuresis anemia: -chronic, baseline runs 8s-9s; -freq acute drops/PRBCs in past -s/p transfusion HTN: -running low here. decreased dose of carvedilol.
[2016-06-07] MEDS ORDERED: INSULIN (NOVOLOG) ASPART 100 UNITS/ML 10ML VIAL ONE (22:15)
[2016-06-07] MEDS: ATORVASTATIN CA 20 MG TABLET (FP) PO SCH (22:41)
[2016-06-07] MEDS: SENNOSIDES 8.6MG TABLET (FP) PO SCH (22:41)
[2016-06-08] MEDS: ALBUTEROL SO4 0.083% IH SOL 2.5 MG/3 ML VIAL.NEB. NEB SCH ×5 (00:10→23:35)
[2016-06-08] MEDS: oxyCODONE HCL 5 MG TABLET PO PRN (02:03)
[2016-06-08] MEDS: PIPERACILLIN/TAZOB 2.25 GM 50 ML IVPB SCH ×3 (02:03→17:41)
[2016-06-08] MEDS: FUROSEMIDE 40 MG/4 ML INJECTABLE VIAL IVPUSH SCH ×2 (06:34→14:28)
[2016-06-08] MEDS: METOCLOPRAMIDE HCL 10 MG TABLET (FP) PO SCH ×3 (06:35→21:16)
[2016-06-08] MEDS: LEVOTHYROXINE NA 50 MCG TABLET (FP) PO SCH (06:36)
[2016-06-08] MEDS: INSULIN SLIDING SCALE (NOVOLOG) 1 VIAL SQ SCH ×4 (06:40→21:14)
[2016-06-08] MEDS: INSULIN DETEMIR 100 UNITS/ML MDV SQ SCH (06:40)
[2016-06-08] MEDS ORDERED: INSULIN (NOVOLOG) ASPART 100 UNITS/ML 10ML VIAL ONE (07:04)
--- NOTE | 2016-06-08 08:52 | PN ---
Progress Note, Physician Chief Complaint: fluid overload History of Present Illness: denies breathlessness, wheezing; no cp, palpit; doesn't feel like legs more swollen than usual but not sure no cigs - Current Medication List Current Medications: Active Medications Acetaminophen (Tylenol -) 650 mg PO Q12H PRN PRN Reason: PAIN Last Admin: 06/07/16 22:53 Dose: 650 mg Acetaminophen (Tylenol -) 325 mg PO Q8H PRN PRN Reason: FEVER OR PAIN Last Admin: 06/07/16 14:52 Dose: 325 mg Albuterol Sulfate (Ventolin 0.083% Nebulizer Soln -) 1 amp NEB Q6HPO [facility] Last Admin: 06/08/16 06:30 Dose: 1 amp Atorvastatin Calcium (Lipitor -) 20 mg PO HS [facility] Last Admin: 06/07/16 22:41 Dose: 20 mg Calcium Acetate (Phoslo -) 667 mg PO TIDCM [facility] Last Admin: 06/07/16 17:44 Dose: 667 mg Carvedilol (Coreg -) 6.25 mg PO BID [facility] Last Admin: 06/07/16 22:40 Dose: 6.25 mg Collagenase (Santyl -) 1 applic TP DAILY [facility] Last Admin: 06/07/16 11:00 Dose: 1 applic Cyanocobalamin (Vitamin B12 -) 1,000 mcg PO DAILY [facility] Last Admin: 06/07/16 12:30 Dose: 1,000 mcg Fluticasone Propionate (Flonase -) 1 spray NS DAILY [facility] Last Admin: 06/07/16 09:05 Dose: 1 spray Folic Acid (Folic Acid -) 1 mg PO DAILY [facility] Last Admin: 06/07/16 09:04 Dose: 1 mg Furosemide (Lasix Injection -) 100 mg IVPUSH BID@0600,1400 [facility] Last Admin: 06/08/16 06:34 Dose: 100 mg Gabapentin (Neurontin -) 300 mg PO DAILY [facility] Last Admin: 06/07/16 09:04 Dose: 300 mg Heparin Sodium (Porcine) (Heparin -) 5,000 unit SQ BID [facility] Last Admin: 06/07/16 22:40 Dose: 5,000 unit Piperacillin Sod/Tazobactam Sod (Zosyn 2.25gm Ivpb (Pre-Docked)) 50 mls @ 100 mls/hr IVPB Q8H-IV [facility] Last Admin: 02/11/17 02:03 Dose: 100 mls/hr Insulin Aspart (Novolog Vial Sliding Scale -) 1 vial SQ ACHS [facility] PRN Reason: Protocol Last Admin: 06/08/16 06:40 Dose: Not Given Insulin Detemir (Levemir Vial) 20 units SQ ACBK [facility] Last Admin: 06/08/16 06:40 Dose: 20 units Isosorbide Mononitrate (Imdur -) 30 mg PO DAILY [facility] Last Admin: 06/07/16 09:04 Dose: 30 mg Levothyroxine Sodium (Synthroid -) 50 mcg PO DAILY@0700 [facility] Last Admin: 06/08/16 06:36 Dose: 50 mcg Lidocaine (Lidoderm Patch -) 1 patch TP DAILY [facility] Last Admin: 06/07/16 09:16 Dose: 1 patch Loratadine (Claritin -) 10 mg PO DAILY [facility] Last Admin: 06/07/16 09:04 Dose: 10 mg Metoclopramide HCl (Reglan -) 5 mg PO TID [facility] Last Admin: 06/08/16 06:35 Dose: 5 mg Nystatin (Nystop Powder -) 1 applic TP BID [facility] Last Admin: 06/07/16 22:41 Dose: 1 applic Ondansetron HCl (Zofran Injection) 8 mg IVPB Q8H PRN PRN Reason: NAUSEA AND/OR VOMITING Oxycodone HCl (Roxicodone -) 5 mg PO Q8H PRN Last Admin: 06/08/16 02:03 Dose: 5 mg Polyethylene Glycol (Miralax (For Daily Use) -) 17 gm PO BID [facility] Last Admin: 06/07/16 22:41 Dose: 17 grams Senna (Senna -) 2 tab PO HS [facility] Last Admin: 06/07/16 22:41 Dose: 2 tab Simethicone (Mylicon -) 80 mg PO DAILY [facility] Last Admin: 06/07/16 09:04 Dose: 80 mg Vitamin A/Vitamin D (Vitamin A & D Top Oint -) 1 applic TP BID [facility] Last Admin: 06/07/16 22:41 Dose: 1 applic - Objective Vital Signs: Vital Signs Temperature 98.4 F 06/08/16 06:00 Pulse Rate 66 06/08/16 06:00 Respiratory Rate 20 06/08/16 06:00 Blood Pressure 130/82 06/08/16 06:00 O2 Sat by Pulse Oximetry (%) 95 06/08/16 05:00 Constitutional: Yes: No Distress, Calm, Obese Eyes: No: Sclera Icterus HENT: No: Nasal Congestion Cardiovascular: Yes: Regular Rate and Rhythm, S1, S2, Other (PMI non diplaced). No: JVD (tds habitus), Gallop, Murmur Respiratory: Yes: CTA Bilaterally. No: Accessory Muscle Use, Rales, Wheezes Gastrointestinal: Yes: Normal Bowel Sounds, Soft. No: Tenderness Musculoskeletal: Yes: Other (No kyphosis) Extremities: No: Cold Edema: Yes (tense to lower thigh R) Integumentary: No: Jaundice Neurological: Yes: Alert, Oriented (x3) Psychiatric: No: Agitated Labs: CBC, BMP 06/07/16 07:00 INR, PTT INR 1.36 (0.82-1.09) H 06/03/16 19:35 Assessment/Plan Echo 07/11: mild-mod decr EF--global; nl RV; mild LAE; mild-mod MR/TR; RVSP 30-40 ; small peric effusion; + pleural eff echo 12/06/15: mild lvh. nl lv/rv, Septal motion c/w RV volume overload. mild cheryl , mild-mod mr, mild as, mod-sev tr, rvsp 50, mod pericardial eff, no tamponade. pleural effusion. echo 12/11/15 (limited): trivial pericardial eff. EKG: sb 58 bpm. anterolateral and lateral TWI, similar to priors. 71 yo with h/o HFpEF, CAD s/p AK, HTN, HL, pHTN, MIRIAM, o2 dep't copd, CKD (bline cr 1.5-1.9), IDDM, hypothyroid and chronic LLE cellulitis p/w anemia, hyperkalemia. chronic foot wound, s/p OR debridement 06/06: -per vascular surgery/ID chronic HFpEF/pulm HTN - 07/11 with mild-mod dec EF, but most recently with nl LV function on 12/11 echo. - pt with volume overload during mult prior admits here--vol status is always difficult to assess given morbidly obese neck hiding JVD, and chronically very abnormal CXR markings due to overlying soft tissue - currently with significant total body volume overload and anasarca, s/p transfusions here. - received lasix 80 mg IV BID here (dosing she received on prior admits) with stable (improving) bun/creat - 06/07: BUN/CR stable if not slightly better. Sx may be improving (improved appetite), but no change on exam. Weights up but may not be accurate. Per nursing, diapers have been wet but unable quantitatively assess uop. Will give trial of 100 mg IV BID, low threshold to decrease back to 80 if BUN/creatinine doesn't improve. -06/08: pt lift scale wt trending up 277 to 284 over the past 3 days; bun improved, creat stable in mid-range of her baseline values here in past; no low BPs--started lasix 100 iv bid yesterday--given she remains very comfortable without sob, will cont same for now and reassess wts and bun/creat daily - defer bradley for UOP, as long as no signs chf - BIPAP as doing CAD, h/o NSTEMI: - has previously refused stress tests. h/o NSTEMI x 2 (2012, 2014) in setting of demand (sepsis/anemia) -MATEO deferred previously due to labile creat's--no change; -cath previously deferred due to: pt preference; hi risk of vascular complications (obese habitus), hi risk of BERNARDINO, and h/o recurrent anemia, possible occult GIB - currently without angianal sx's. EKG unchanged. Con't statin, coreg imdur. - hgb stable for several days since transfusions, at her chronic baseline (8s-9s )--resume ASA 81, monitor H/H trend CKD/michael: -baseline creat 1.4-2.2 since 12/11 here -stable renal fxn here, monitor with diuresis anemia: -chronic, baseline runs 8s-9s; -freq acute drops/PRBCs in past -s/p transfusion here HTN: -controlled -cont same meds
[2016-06-08] MEDS: CALCIUM ACETATE 667 MG CAPSULE (FP) PO SCH ×3 (09:00→17:43)
[2016-06-08 09:27] LABS: CALCIUM 8.2 mg/dL (8.5-10.1); CREATININE 1.8 mg/dL (0.55-1.02)
[2016-06-08] MEDS: SIMETHICONE 80 MG TAB.CHEW (FP) PO SCH (11:10)
[2016-06-08] MEDS: FOLIC ACID 1 MG TABLET (FP) PO SCH (11:11)
[2016-06-08] MEDS: LORATADINE 10 MG TABLET PO SCH (11:11)
[2016-06-08] MEDS: ASPIRIN COATED 81 MG TABLET.EC PO SCH (11:11)
[2016-06-08] MEDS: ISOSORBIDE MONONITRATE 30 MG TAB.SR.24H (FP) PO SCH (11:11)
[2016-06-08] MEDS: CARVEDILOL 6.25 MG TABLET (FP) PO SCH ×2 (11:11→21:13)
[2016-06-08] MEDS: ACETAMINOPHEN 325 MG TABLET (FP) PO PRN ×2 (11:12→15:44)
[2016-06-08] MEDS: CYANOCOBALAMIN 1,000 MCG TABLET (FP) PO SCH (11:13)
[2016-06-08] MEDS: FLUTICASONE PROP 0.05% 16 GM NASAL SPRAY NS SCH (11:13)
[2016-06-08] MEDS: GABAPENTIN 300 MG CAPSULE (FP) PO SCH (11:13)
[2016-06-08] MEDS: HEPARIN NA (PORCINE) 5,000 UNITS/ML 1ML VIAL SQ SCH ×2 (11:14→21:13)
[2016-06-08] MEDS: LIDOCAINE 5% TOPICAL PATCH TP SCH (11:14)
[2016-06-08] MEDS: POLYETHYLENE GLYCOL 3350 119 GM BTL PO SCH ×2 (11:15→21:12)
[2016-06-08] MEDS: COLLAGENASE CLOSTRIDIUM HIST. 30 GRAMS TUBE TP SCH (11:15)
[2016-06-08] MEDS: NYSTATIN POWDER 100,000 UNITS/GM - 15 GM TOPICAL POWDER TP SCH ×2 (11:15→21:15)
[2016-06-08] MEDS: VITAMINS A AND D TOPICAL OINTMENT 60 GM TUBE TP SCH ×2 (11:16→23:22)
--- NOTE | 2016-06-08 13:00 | PN ---
Progress Note, Physician Chief Complaint: in bed nad afebrile less foot pain - Current Medication List Current Medications: Active Medications Acetaminophen (Tylenol -) 650 mg PO Q12H PRN PRN Reason: PAIN Last Admin: 06/08/16 11:12 Dose: 650 mg Acetaminophen (Tylenol -) 325 mg PO Q8H PRN PRN Reason: FEVER OR PAIN Last Admin: 06/07/16 14:52 Dose: 325 mg Albuterol Sulfate (Ventolin 0.083% Nebulizer Soln -) 1 amp NEB Q6HPO [facility] Last Admin: 06/08/16 11:23 Dose: 1 amp Aspirin (Ecotrin -) 81 mg PO DAILY [facility] Last Admin: 06/08/16 11:11 Dose: 81 mg Atorvastatin Calcium (Lipitor -) 20 mg PO HS [facility] Last Admin: 06/07/16 22:41 Dose: 20 mg Calcium Acetate (Phoslo -) 667 mg PO TIDCM [facility] Last Admin: 06/08/16 12:19 Dose: 667 mg Carvedilol (Coreg -) 6.25 mg PO BID [facility] Last Admin: 06/08/16 11:11 Dose: 6.25 mg Collagenase (Santyl -) 1 applic TP DAILY [facility] Last Admin: 06/08/16 11:15 Dose: 1 applic Cyanocobalamin (Vitamin B12 -) 1,000 mcg PO DAILY [facility] Last Admin: 06/08/16 11:13 Dose: 1,000 mcg Fluticasone Propionate (Flonase -) 1 spray NS DAILY [facility] Last Admin: 06/08/16 11:13 Dose: 1 spray Folic Acid (Folic Acid -) 1 mg PO DAILY [facility] Last Admin: 06/08/16 11:11 Dose: 1 mg Furosemide (Lasix Injection -) 100 mg IVPUSH BID@0600,1400 [facility] Last Admin: 06/08/16 06:34 Dose: 100 mg Gabapentin (Neurontin -) 300 mg PO DAILY [facility] Last Admin: 06/08/16 11:13 Dose: 300 mg Heparin Sodium (Porcine) (Heparin -) 5,000 unit SQ BID [facility] Last Admin: 06/08/16 11:14 Dose: 5,000 unit Piperacillin Sod/Tazobactam Sod (Zosyn 2.25gm Ivpb (Pre-Docked)) 50 mls @ 100 mls/hr IVPB Q8H-IV [facility] Last Admin: 06/08/16 11:11 Dose: 100 mls/hr Insulin Aspart (Novolog Vial Sliding Scale -) 1 vial SQ ACHS [facility] PRN Reason: Protocol Last Admin: 06/08/16 12:19 Dose: Not Given Insulin Detemir (Levemir Vial) 20 units SQ ACBK [facility] Last Admin: 06/08/16 06:40 Dose: 20 units Isosorbide Mononitrate (Imdur -) 30 mg PO DAILY [facility] Last Admin: 06/08/16 11:11 Dose: 30 mg Levothyroxine Sodium (Synthroid -) 50 mcg PO DAILY@0700 [facility] Last Admin: 06/08/16 06:36 Dose: 50 mcg Lidocaine (Lidoderm Patch -) 1 patch TP DAILY [facility] Last Admin: 06/08/16 11:14 Dose: 1 patch Loratadine (Claritin -) 10 mg PO DAILY [facility] Last Admin: 06/08/16 11:11 Dose: 10 mg Metoclopramide HCl (Reglan -) 5 mg PO TID [facility] Last Admin: 06/08/16 06:35 Dose: 5 mg Nystatin (Nystop Powder -) 1 applic TP BID [facility] Last Admin: 06/08/16 11:15 Dose: 1 applic Ondansetron HCl (Zofran Injection) 8 mg IVPB Q8H PRN PRN Reason: NAUSEA AND/OR VOMITING Oxycodone HCl (Roxicodone -) 5 mg PO Q8H PRN Last Admin: 06/08/16 02:03 Dose: 5 mg Polyethylene Glycol (Miralax (For Daily Use) -) 17 gm PO BID [facility] Last Admin: 06/08/16 11:15 Dose: 17 grams Senna (Senna -) 2 tab PO HS [facility] Last Admin: 06/07/16 22:41 Dose: 2 tab Simethicone (Mylicon -) 80 mg PO DAILY [facility] Last Admin: 06/08/16 11:10 Dose: 80 mg Vitamin A/Vitamin D (Vitamin A & D Top Oint -) 1 applic TP BID [facility] Last Admin: 06/08/16 11:16 Dose: 1 applic - Objective Vital Signs: Vital Signs Temperature 98.4 F 06/08/16 06:00 Pulse Rate 64 06/08/16 11:22 Respiratory Rate 20 06/08/16 06:00 Blood Pressure 130/82 06/08/16 06:00 O2 Sat by Pulse Oximetry (%) 100 06/08/16 11:22 Constitutional: Yes: No Distress Eyes: Yes: Conjunctiva Clear HENT: Yes: Atraumatic Neck: Yes: Supple Cardiovascular: Yes: Regular Rate and Rhythm Respiratory: Yes: CTA Bilaterally Gastrointestinal: Yes: Soft. No: Distention, Tenderness Genitourinary: No: Hematuria Musculoskeletal: No: Joint Swelling, Muscle Pain Extremities: No: Cold, Cool Edema: Yes Integumentary: Yes: Rash (LLE no change) Neurological: Yes: Alert, Oriented Psychiatric: Yes: Alert, Oriented. No: Agitated Labs: CBC, BMP 06/07/16 07:00 06/08/16 07:00 INR, PTT INR 1.36 (0.82-1.09) H 06/03/16 19:35 - ....Imaging Other: Report Reviewed Assessment/Plan The patient is a 71 year old female, with a significant past medical history of CAD, CHF, DE x2, HTN, HLD, COPD (O2 dependant 2L), renal insufficiency, DM, who presents to the emergency department via ems from [facility] with anemia, hyperK, foot wound and infection DM s/p L foot debridement, wound care per surgery IV antibiotics per ID HBO in the future anemia s.p PRBC f/u labs pain meds, DVT pfx f/u labs and Cx pt to sign HCP d/w pt and staff
[2016-06-08] MEDS ORDERED: PT OWN MED DRAWER 7, Y5N ONE (20:50)
[2016-06-08] MEDS: ATORVASTATIN CA 20 MG TABLET (FP) PO SCH (21:14)
[2016-06-08] MEDS: SENNOSIDES 8.6MG TABLET (FP) PO SCH (21:17)
[2016-06-09] MEDS: PIPERACILLIN/TAZOB 2.25 GM 50 ML IVPB SCH ×3 (02:50→18:56)
[2016-06-09] MEDS: ACETAMINOPHEN 325 MG TABLET (FP) PO PRN ×3 (03:35→22:55)
[2016-06-09] MEDS: FUROSEMIDE 40 MG/4 ML INJECTABLE VIAL IVPUSH SCH ×2 (06:38→13:00)
[2016-06-09] MEDS: METOCLOPRAMIDE HCL 10 MG TABLET (FP) PO SCH ×3 (06:44→22:48)
[2016-06-09] MEDS: INSULIN DETEMIR 100 UNITS/ML MDV SQ SCH (06:45)
[2016-06-09] MEDS: INSULIN SLIDING SCALE (NOVOLOG) 1 VIAL SQ SCH ×4 (06:46→22:47)
[2016-06-09] MEDS: LEVOTHYROXINE NA 50 MCG TABLET (FP) PO SCH (06:46)
[2016-06-09] MEDS: ALBUTEROL SO4 0.083% IH SOL 2.5 MG/3 ML VIAL.NEB. NEB SCH ×4 (06:55→23:23)
[2016-06-09 07:40] LABS: MCH 28.1 pg (25.7-33.7); MCHC 31.6 g/dl (32.0-36.0); MEAN CELL VOLUME 88.8 fl (80-96); MEAN PLT VOLUME 7.8 fl (7.5-11.1); PLATELET COUNT 203 K/MM3 (134-434); RDW 16.3 % (11.6-15.6)
[2016-06-09 08:28] LABS: ALBUMIN 2.1 g/dl (3.4-5.0); ALK PHOS 102 U/L (45-117); ANION GAP 9 (8-16); BILIRUBIN,TOTAL 0.7 mg/dL (0.2-1.0); CALCIUM 8.3 mg/dL (8.5-10.1); CO2 31 mmol/L (21-32); CREATININE 1.7 mg/dL (0.55-1.02); GLUCOSE,RANDOM 103 mg/dL (74-106); SGOT/AST 6 U/L (15-37); SGPT/ALT < 6 U/L (12-78)
[2016-06-09] MEDS ORDERED: PT OWN MED DRAWER 7, Y5N ONE (08:42)
[2016-06-09] MEDS: CALCIUM ACETATE 667 MG CAPSULE (FP) PO SCH ×3 (08:54→18:11)
--- NOTE | 2016-06-09 08:55 | PN ---
Progress Note, Physician Chief Complaint: volume overload History of Present Illness: denies sob or orthopnea; leg swelling feels at her baseline no cp, palpit - Current Medication List Current Medications: Active Medications Acetaminophen (Tylenol -) 650 mg PO Q12H PRN PRN Reason: PAIN Last Admin: 06/09/16 03:35 Dose: 650 mg Acetaminophen (Tylenol -) 325 mg PO Q8H PRN PRN Reason: FEVER OR PAIN Last Admin: 06/08/16 15:44 Dose: 325 mg Albuterol Sulfate (Ventolin 0.083% Nebulizer Soln -) 1 amp NEB Q6HPO [facility] Last Admin: 06/09/16 06:55 Dose: 1 amp Aspirin (Ecotrin -) 81 mg PO DAILY [facility] Last Admin: 06/08/16 11:11 Dose: 81 mg Atorvastatin Calcium (Lipitor -) 20 mg PO HS [facility] Last Admin: 06/08/16 21:14 Dose: 20 mg Calcium Acetate (Phoslo -) 667 mg PO TIDCM [facility] Last Admin: 06/08/16 17:43 Dose: 667 mg Carvedilol (Coreg -) 6.25 mg PO BID [facility] Last Admin: 06/08/16 21:13 Dose: 6.25 mg Collagenase (Santyl -) 1 applic TP DAILY [facility] Last Admin: 06/08/16 11:15 Dose: 1 applic Cyanocobalamin (Vitamin B12 -) 1,000 mcg PO DAILY [facility] Last Admin: 06/08/16 11:13 Dose: 1,000 mcg Fluticasone Propionate (Flonase -) 1 spray NS DAILY [facility] Last Admin: 06/08/16 11:13 Dose: 1 spray Folic Acid (Folic Acid -) 1 mg PO DAILY [facility] Last Admin: 06/08/16 11:11 Dose: 1 mg Furosemide (Lasix Injection -) 100 mg IVPUSH BID@0600,1400 [facility] Last Admin: 06/09/16 06:38 Dose: 100 mg Gabapentin (Neurontin -) 300 mg PO DAILY [facility] Last Admin: 06/08/16 11:13 Dose: 300 mg Heparin Sodium (Porcine) (Heparin -) 5,000 unit SQ BID [facility] Last Admin: 06/08/16 21:13 Dose: 5,000 unit Piperacillin Sod/Tazobactam Sod (Zosyn 2.25gm Ivpb (Pre-Docked)) 50 mls @ 100 mls/hr IVPB Q8H-IV [facility] Last Admin: 06/09/16 02:50 Dose: 100 mls/hr Insulin Aspart (Novolog Vial Sliding Scale -) 1 vial SQ ACHS [facility] PRN Reason: Protocol Last Admin: 06/09/16 06:46 Dose: Not Given Insulin Detemir (Levemir Vial) 20 units SQ ACBK [facility] Last Admin: 06/09/16 06:45 Dose: 20 units Isosorbide Mononitrate (Imdur -) 30 mg PO DAILY [facility] Last Admin: 06/08/16 11:11 Dose: 30 mg Levothyroxine Sodium (Synthroid -) 50 mcg PO DAILY@0700 [facility] Last Admin: 06/09/16 06:46 Dose: 50 mcg Lidocaine (Lidoderm Patch -) 1 patch TP DAILY [facility] Last Admin: 06/08/16 11:14 Dose: 1 patch Loratadine (Claritin -) 10 mg PO DAILY [facility] Last Admin: 06/08/16 11:11 Dose: 10 mg Metoclopramide HCl (Reglan -) 5 mg PO TID [facility] Last Admin: 06/09/16 06:44 Dose: 5 mg Nystatin (Nystop Powder -) 1 applic TP BID [facility] Last Admin: 06/08/16 21:15 Dose: 1 applic Ondansetron HCl (Zofran Injection) 8 mg IVPB Q8H PRN PRN Reason: NAUSEA AND/OR VOMITING Oxycodone HCl (Roxicodone -) 5 mg PO Q8H PRN Last Admin: 06/08/16 02:03 Dose: 5 mg Polyethylene Glycol (Miralax (For Daily Use) -) 17 gm PO BID [facility] Last Admin: 06/08/16 21:12 Dose: 17 grams Senna (Senna -) 2 tab PO HS [facility] Last Admin: 06/08/16 21:17 Dose: 2 tab Simethicone (Mylicon -) 80 mg PO DAILY [facility] Last Admin: 06/08/16 11:10 Dose: 80 mg Vitamin A/Vitamin D (Vitamin A & D Top Oint -) 1 applic TP BID [facility] Last Admin: 06/08/16 23:22 Dose: Not Given - Objective Vital Signs: Vital Signs Temperature 98.9 F 06/09/16 06:00 Pulse Rate 92 H 06/09/16 06:00 Respiratory Rate 20 06/09/16 06:00 Blood Pressure 123/54 06/09/16 06:00 O2 Sat by Pulse Oximetry (%) 99 06/09/16 05:00 Constitutional: Yes: No Distress, Calm, Obese Cardiovascular: Yes: Regular Rate and Rhythm, S1, S2. No: Gallop, Murmur Respiratory: Yes: Regular, CTA Bilaterally. No: Accessory Muscle Use, Rales, Wheezes Extremities: No: Cold Edema: Yes (RLE > L) Neurological: Yes: Alert, Oriented Psychiatric: No: Agitated Labs: CBC, BMP 06/09/16 06:15 06/09/16 06:15 INR, PTT INR 1.36 (0.82-1.09) H 06/03/16 19:35 Assessment/Plan Echo 07/11: mild-mod decr EF--global; nl RV; mild LAE; mild-mod MR/TR; RVSP 30-40 ; small peric effusion; + pleural eff echo 12/06/15: mild lvh. nl lv/rv, Septal motion c/w RV volume overload. mild cheryl , mild-mod mr, mild as, mod-sev tr, rvsp 50, mod pericardial eff, no tamponade. pleural effusion. echo 12/11/15 (limited): trivial pericardial eff. EKG: sb 58 bpm. anterolateral and lateral TWI, similar to priors. 71 yo with h/o HFpEF, CAD s/p [place], HTN, HL, pHTN, MIRIAM, o2 dep't copd, CKD (bline cr 1.5-1.9), IDDM, hypothyroid and chronic LLE cellulitis p/w anemia, hyperkalemia. chronic foot wound, s/p OR debridement 06/06: -per vascular surgery/ID chronic HFpEF/pulm HTN/venous ins'y - 07/11 with mild-mod dec EF, but most recently with nl LV function on 12/11 echo. - pt with volume overload during mult prior admits here--vol status is always difficult to assess given morbidly obese neck hiding JVD, and chronically very abnormal CXR markings due to overlying soft tissue - currently with significant total body volume overload and anasarca, s/p transfusions here. - received lasix 80 mg IV BID here (dosing she received on prior admits) with stable (improving) bun/creat - 06/07: BUN/CR stable if not slightly better. Sx may be improving (improved appetite), but no change on exam. Weights up but may not be accurate. Per nursing, diapers have been wet but unable quantitatively assess uop. Will give trial of 100 mg IV BID, low threshold to decrease back to 80 if BUN/creatinine doesn't improve. -06/08: pt lift scale wt trending up 277 to 284 over the past 3 days; bun improved, creat stable in mid-range of her baseline values here in past; no low BPs--started lasix 100 iv bid yesterday--given she remains very comfortable without sob, will cont same for now and reassess wts and bun/creat daily -06/09: bun/creat stable/improving; BNP only 61--suspect volume excess is principally localized to legs (due to chronic venous ins'y/lymphedema, and possible cellulitis now); cont same lasix for now--low threshold to cut back once bun/creat starts rising - BIPAP as doing CAD, h/o NSTEMI: - has previously refused stress tests. h/o NSTEMI x 2 (2012, 2014) in setting of demand (sepsis/anemia) -MATEO deferred previously due to labile creat's--no change; -cath previously deferred due to: pt preference; hi risk of vascular complications (obese habitus), hi risk of BERNARDINO, and h/o recurrent anemia, possible occult GIB - currently without angianal sx's. EKG unchanged. Con't statin, coreg imdur. - hgb stable for several days since transfusions, at her chronic baseline (8s-9s )--resume ASA 81, monitor H/H trend CKD/michael: -baseline creat 1.4-2.2 since 12/11 here -stable renal fxn here, monitor with diuresis anemia: -chronic, baseline runs 8s-9s; -freq acute drops/PRBCs in past -s/p transfusion here HTN: -controlled -cont same meds
[2016-06-09] MEDS: CYANOCOBALAMIN 1,000 MCG TABLET (FP) PO SCH (09:06)
[2016-06-09] MEDS: ISOSORBIDE MONONITRATE 30 MG TAB.SR.24H (FP) PO SCH (09:06)
[2016-06-09] MEDS: GABAPENTIN 300 MG CAPSULE (FP) PO SCH (09:07)
[2016-06-09] MEDS: HEPARIN NA (PORCINE) 5,000 UNITS/ML 1ML VIAL SQ SCH ×2 (09:07→22:45)
[2016-06-09] MEDS: LORATADINE 10 MG TABLET PO SCH (09:07)
[2016-06-09] MEDS: FLUTICASONE PROP 0.05% 16 GM NASAL SPRAY NS SCH (09:07)
[2016-06-09] MEDS: FOLIC ACID 1 MG TABLET (FP) PO SCH (09:07)
[2016-06-09] MEDS: ASPIRIN COATED 81 MG TABLET.EC PO SCH (09:07)
[2016-06-09] MEDS: CARVEDILOL 6.25 MG TABLET (FP) PO SCH ×2 (09:07→22:44)
[2016-06-09] MEDS: POLYETHYLENE GLYCOL 3350 119 GM BTL PO SCH ×2 (09:08→22:46)
[2016-06-09] MEDS: LIDOCAINE 5% TOPICAL PATCH TP SCH (09:08)
[2016-06-09] MEDS: SIMETHICONE 80 MG TAB.CHEW (FP) PO SCH (09:14)
--- NOTE | 2016-06-09 12:02 | PN ---
Progress Note, Physician History of Present Illness: Pt w/o fever, chills, SOB, CP, palp., abd pain,N, V. - Current Medication List Current Medications: Active Medications Acetaminophen (Tylenol -) 650 mg PO Q12H PRN PRN Reason: PAIN Last Admin: 06/09/16 03:35 Dose: 650 mg Acetaminophen (Tylenol -) 325 mg PO Q8H PRN PRN Reason: FEVER OR PAIN Last Admin: 06/08/16 15:44 Dose: 325 mg Albuterol Sulfate (Ventolin 0.083% Nebulizer Soln -) 1 amp NEB Q6HPO [facility] Last Admin: 06/09/16 11:27 Dose: 1 amp Aspirin (Ecotrin -) 81 mg PO DAILY [facility] Last Admin: 06/09/16 09:07 Dose: 81 mg Atorvastatin Calcium (Lipitor -) 20 mg PO HS [facility] Last Admin: 06/08/16 21:14 Dose: 20 mg Calcium Acetate (Phoslo -) 667 mg PO TIDCM [facility] Last Admin: 06/09/16 08:54 Dose: 667 mg Carvedilol (Coreg -) 6.25 mg PO BID [facility] Last Admin: 06/09/16 09:07 Dose: 6.25 mg Collagenase (Santyl -) 1 applic TP DAILY [facility] Last Admin: 06/08/16 11:15 Dose: 1 applic Cyanocobalamin (Vitamin B12 -) 1,000 mcg PO DAILY [facility] Last Admin: 06/09/16 09:06 Dose: 1,000 mcg Fluticasone Propionate (Flonase -) 1 spray NS DAILY [facility] Last Admin: 06/09/16 09:07 Dose: 1 spray Folic Acid (Folic Acid -) 1 mg PO DAILY [facility] Last Admin: 06/09/16 09:07 Dose: 1 mg Furosemide (Lasix Injection -) 100 mg IVPUSH BID@0600,1400 [facility] Last Admin: 06/09/16 06:38 Dose: 100 mg Gabapentin (Neurontin -) 300 mg PO DAILY [facility] Last Admin: 06/09/16 09:07 Dose: 300 mg Heparin Sodium (Porcine) (Heparin -) 5,000 unit SQ BID [facility] Last Admin: 06/09/16 09:07 Dose: 5,000 unit Piperacillin Sod/Tazobactam Sod (Zosyn 2.25gm Ivpb (Pre-Docked)) 50 mls @ 100 mls/hr IVPB Q8H-IV [facility] Last Admin: 06/09/16 02:50 Dose: 100 mls/hr Insulin Aspart (Novolog Vial Sliding Scale -) 1 vial SQ ACHS [facility] PRN Reason: Protocol Last Admin: 06/09/16 06:46 Dose: Not Given Insulin Detemir (Levemir Vial) 20 units SQ ACBK [facility] Last Admin: 06/09/16 06:45 Dose: 20 units Isosorbide Mononitrate (Imdur -) 30 mg PO DAILY [facility] Last Admin: 06/09/16 09:06 Dose: 30 mg Levothyroxine Sodium (Synthroid -) 50 mcg PO DAILY@0700 [facility] Last Admin: 06/09/16 06:46 Dose: 50 mcg Lidocaine (Lidoderm Patch -) 1 patch TP DAILY [facility] Last Admin: 06/09/16 09:08 Dose: 1 patch Loratadine (Claritin -) 10 mg PO DAILY [facility] Last Admin: 06/09/16 09:07 Dose: 10 mg Metoclopramide HCl (Reglan -) 5 mg PO TID [facility] Last Admin: 06/09/16 06:44 Dose: 5 mg Nystatin (Nystop Powder -) 1 applic TP BID [facility] Last Admin: 06/08/16 21:15 Dose: 1 applic Ondansetron HCl (Zofran Injection) 8 mg IVPB Q8H PRN PRN Reason: NAUSEA AND/OR VOMITING Oxycodone HCl (Roxicodone -) 5 mg PO Q8H PRN Last Admin: 06/08/16 02:03 Dose: 5 mg Polyethylene Glycol (Miralax (For Daily Use) -) 17 gm PO BID [facility] Last Admin: 06/09/16 09:08 Dose: 17 grams Senna (Senna -) 2 tab PO HS [facility] Last Admin: 06/08/16 21:17 Dose: 2 tab Simethicone (Mylicon -) 80 mg PO DAILY [facility] Last Admin: 06/09/16 09:14 Dose: 80 mg Vitamin A/Vitamin D (Vitamin A & D Top Oint -) 1 applic TP BID [facility] Last Admin: 06/08/16 23:22 Dose: Not Given - Objective Vital Signs: Vital Signs Temperature 98.9 F 06/09/16 06:00 Pulse Rate 62 06/09/16 11:27 Respiratory Rate 20 06/09/16 09:00 Blood Pressure 112/40 06/09/16 09:00 O2 Sat by Pulse Oximetry (%) 99 06/09/16 11:27 Constitutional: Yes: No Distress, Calm Cardiovascular: Yes: Regular Rate and Rhythm, S1, S2 Respiratory: Yes: Regular, CTA Bilaterally, Other (coarse at bases) Gastrointestinal: Yes: Normal Bowel Sounds, Soft, Abdomen, Obese. No: Tenderness Edema: Yes (Lymphedema R >> L) Neurological: Yes: Alert, Oriented Labs: CBC, BMP 06/09/16 06:15 06/09/16 06:15 INR, PTT INR 1.36 (0.82-1.09) H 06/03/16 19:35 Problem List - Problems (1) Ulcer of foot Assessment/Plan: s/p debridmnet On IV abtx per ID ( consult and f/u appreciated) Code(s): L97.509 - NON-PRESSURE CHRONIC ULCER OTH PRT UNSP FOOT W UNSP SEVERITY Qualifiers: Laterality: left Non-pressure ulcer stage: unspecified non-pressure ulcer stage Qualified Code(s): L97.529 - Non-pressure chronic ulcer of other part of left foot with unspecified severity (2) Anemia Assessment/Plan: stable, to monitor H/H Code(s): D64.9 - ANEMIA, UNSPECIFIED Qualifiers: Anemia type: unspecified type Qualified Code(s): D64.9 - Anemia, unspecified (3) CKD (chronic kidney disease), stage III Code(s): N18.3 - CHRONIC KIDNEY DISEASE, STAGE 3 (MODERATE) (4) Diabetes Code(s): E11.9 - TYPE 2 DIABETES MELLITUS WITHOUT COMPLICATIONS (5) CAD (coronary artery disease) Assessment/Plan: cardia consult and f/u appreciated. Code(s): I25.10 - ATHSCL HEART DISEASE OF [place] CORONARY ARTERY W/O ANG PCTRS Qualifiers: Coronary Disease-Associated Artery/Lesion type: unspecified vessel or lesion type [place] vs. transplanted heart: [place] heart Associated angina: without angina Qualified Code(s): I25.10 - Atherosclerotic heart disease of [place] coronary artery without angina pectoris Assessment/Plan AM labs
[2016-06-09] MEDS: COLLAGENASE CLOSTRIDIUM HIST. 30 GRAMS TUBE TP SCH (12:11)
[2016-06-09] MEDS: VITAMINS A AND D TOPICAL OINTMENT 60 GM TUBE TP SCH ×2 (12:11→22:52)
[2016-06-09] MEDS: NYSTATIN POWDER 100,000 UNITS/GM - 15 GM TOPICAL POWDER TP SCH ×2 (12:11→22:47)
[2016-06-09] MEDS: oxyCODONE HCL 5 MG TABLET PO PRN (12:59)
[2016-06-09] MEDS: ATORVASTATIN CA 20 MG TABLET (FP) PO SCH (22:46)
[2016-06-09] MEDS: SENNOSIDES 8.6MG TABLET (FP) PO SCH (22:51)
[2016-06-10] MEDS: PIPERACILLIN/TAZOB 2.25 GM 50 ML IVPB SCH ×3 (02:07→17:04)
[2016-06-10] MEDS: ACETAMINOPHEN 325 MG TABLET (FP) PO PRN ×3 (04:25→19:49)
[2016-06-10] MEDS: oxyCODONE HCL 5 MG TABLET PO PRN ×2 (05:23→19:48)
[2016-06-10] MEDS: FUROSEMIDE 40 MG/4 ML INJECTABLE VIAL IVPUSH SCH ×2 (06:43→15:30)
[2016-06-10] MEDS: ALBUTEROL SO4 0.083% IH SOL 2.5 MG/3 ML VIAL.NEB. NEB SCH ×3 (06:45→17:10)
[2016-06-10] MEDS: METOCLOPRAMIDE HCL 10 MG TABLET (FP) PO SCH ×3 (06:46→22:09)
[2016-06-10] MEDS: INSULIN SLIDING SCALE (NOVOLOG) 1 VIAL SQ SCH ×4 (06:47→22:06)
[2016-06-10] MEDS: INSULIN DETEMIR 100 UNITS/ML MDV SQ SCH (06:48)
[2016-06-10] MEDS: LEVOTHYROXINE NA 50 MCG TABLET (FP) PO SCH (06:49)
[2016-06-10] MEDS ORDERED: INSULIN DETEMIR 100 UNITS/ML MDV SQ ONE (07:07)
[2016-06-10] MEDS ORDERED: INSULIN (NOVOLOG) ASPART 100 UNITS/ML 10ML VIAL ONE (07:08)
[2016-06-10] MEDS ORDERED: PT OWN MED DRAWER 7, Y5N ONE ×2 (07:08→11:17)
[2016-06-10 07:18] LABS: MCH 28.3 pg (25.7-33.7); MCHC 32.1 g/dl (32.0-36.0); MEAN CELL VOLUME 88.1 fl (80-96); MEAN PLT VOLUME 7.9 fl (7.5-11.1); PLATELET COUNT 186 K/MM3 (134-434); RDW 16.1 % (11.6-15.6); WHITE BLOOD COUNT 6.3 K/mm3 (4.0-10.0)
[2016-06-10 07:43] LABS: CALCIUM 8.1 mg/dL (8.5-10.1); CREATININE 1.7 mg/dL (0.55-1.02)
[2016-06-10] MEDS: CALCIUM ACETATE 667 MG CAPSULE (FP) PO SCH ×3 (09:00→17:03)
--- NOTE | 2016-06-10 09:34 | PN ---
[id number], cp, palpit. leg swelling feels stable to her - Current Medication List Current Medications: Active Medications Acetaminophen (Tylenol -) 650 mg PO Q12H PRN PRN Reason: PAIN Last Admin: 06/09/16 22:55 Dose: 650 mg Acetaminophen (Tylenol -) 325 mg PO Q8H PRN PRN Reason: FEVER OR PAIN Last Admin: 06/10/16 04:25 Dose: 325 mg Albuterol Sulfate (Ventolin 0.083% Nebulizer Soln -) 1 amp NEB Q6HPO [facility] Last Admin: 06/10/16 06:45 Dose: 1 amp Aspirin (Ecotrin -) 81 mg PO DAILY [facility] Last Admin: 06/09/16 09:07 Dose: 81 mg Atorvastatin Calcium (Lipitor -) 20 mg PO HS [facility] Last Admin: 06/09/16 22:46 Dose: 20 mg Calcium Acetate (Phoslo -) 667 mg PO TIDCM [facility] Last Admin: 06/09/16 18:11 Dose: 667 mg Carvedilol (Coreg -) 6.25 mg PO BID [facility] Last Admin: 06/09/16 22:44 Dose: 6.25 mg Collagenase (Santyl -) 1 applic TP DAILY [facility] Last Admin: 06/09/16 12:11 Dose: 1 applic Cyanocobalamin (Vitamin B12 -) 1,000 mcg PO DAILY [facility] Last Admin: 06/09/16 09:06 Dose: 1,000 mcg Fluticasone Propionate (Flonase -) 1 spray NS DAILY [facility] Last Admin: 06/09/16 09:07 Dose: 1 spray Folic Acid (Folic Acid -) 1 mg PO DAILY [facility] Last Admin: 06/09/16 09:07 Dose: 1 mg Furosemide (Lasix Injection -) 100 mg IVPUSH BID@0600,1400 [facility] Last Admin: 06/10/16 06:43 Dose: 100 mg Gabapentin (Neurontin -) 300 mg PO DAILY [facility] Last Admin: 06/09/16 09:07 Dose: 300 mg Heparin Sodium (Porcine) (Heparin -) 5,000 unit SQ BID [facility] Last Admin: 06/09/16 22:45 Dose: 5,000 unit Piperacillin Sod/Tazobactam Sod (Zosyn 2.25gm Ivpb (Pre-Docked)) 50 mls @ 100 mls/hr IVPB Q8H-IV [facility] Last Admin: 06/10/16 02:07 Dose: 100 mls/hr Insulin Aspart (Novolog Vial Sliding Scale -) 1 vial SQ ACHS [facility] PRN Reason: Protocol Last Admin: 06/10/16 06:47 Dose: Not Given Insulin Detemir (Levemir Vial) 20 units SQ ACBK [facility] Last Admin: 06/10/16 06:48 Dose: 20 units Isosorbide Mononitrate (Imdur -) 30 mg PO DAILY [facility] Last Admin: 06/09/16 09:06 Dose: 30 mg Levothyroxine Sodium (Synthroid -) 50 mcg PO DAILY@0700 [facility] Last Admin: 06/10/16 06:49 Dose: 50 mcg Lidocaine (Lidoderm Patch -) 1 patch TP DAILY [facility] Last Admin: 06/09/16 09:08 Dose: 1 patch Loratadine (Claritin -) 10 mg PO DAILY [facility] Last Admin: 06/09/16 09:07 Dose: 10 mg Metoclopramide HCl (Reglan -) 5 mg PO TID [facility] Last Admin: 06/10/16 06:46 Dose: 5 mg Nystatin (Nystop Powder -) 1 applic TP BID [facility] Last Admin: 06/09/16 22:47 Dose: 1 applic Ondansetron HCl (Zofran Injection) 8 mg IVPB Q8H PRN PRN Reason: NAUSEA AND/OR VOMITING Oxycodone HCl (Roxicodone -) 5 mg PO Q8H PRN PRN Reason: PAIN Last Admin: 06/10/16 05:23 Dose: 5 mg Polyethylene Glycol (Miralax (For Daily Use) -) 17 gm PO BID [facility] Last Admin: 06/09/16 22:46 Dose: 17 grams Senna (Senna -) 2 tab PO HS [facility] Last Admin: 06/09/16 22:51 Dose: 2 tab Simethicone (Mylicon -) 80 mg PO DAILY [facility] Last Admin: 06/09/16 09:14 Dose: 80 mg Vitamin A/Vitamin D (Vitamin A & D Top Oint -) 1 applic TP BID [facility] Last Admin: 06/09/16 22:52 Dose: 1 applic - Objective Vital Signs: Vital Signs Temperature 97.9 F 06/10/16 06:00 Pulse Rate 56 L 06/10/16 06:00 Respiratory Rate 20 06/10/16 06:00 Blood Pressure 118/58 06/10/16 06:00 O2 Sat by Pulse Oximetry (%) 98 06/10/16 05:00 Constitutional: Yes: No Distress, Calm, Obese Cardiovascular: Yes: Regular Rate and Rhythm, S1, S2. No: Gallop, Murmur Respiratory: Yes: Regular, CTA Bilaterally. No: Accessory Muscle Use, Rales, Wheezes Extremities: No: Cold Edema: Yes (R > L nonpitting) Neurological: Yes: Alert, Oriented Psychiatric: No: Agitated Labs: CBC, BMP 06/10/16 05:35 06/10/16 05:35 INR, PTT INR 1.36 (0.82-1.09) H 06/03/16 19:35 Assessment/Plan Echo 07/11: mild-mod decr EF--global; nl RV; mild LAE; mild-mod MR/TR; RVSP 30-40 ; small peric effusion; + pleural eff echo 12/06/15: mild lvh. nl lv/rv, Septal motion c/w RV volume overload. mild cheryl , mild-mod mr, mild as, mod-sev tr, rvsp 50, mod pericardial eff, no tamponade. pleural effusion. echo 12/11/15 (limited): trivial pericardial eff. EKG: sb 58 bpm. anterolateral and lateral TWI, similar to priors. 71 yo with h/o HFpEF, CAD s/p DE, HTN, HL, pHTN, MIRIAM, o2 dep't copd, CKD (bline cr 1.5-1.9), IDDM, hypothyroid and chronic LLE cellulitis p/w anemia, hyperkalemia. chronic foot wound, s/p OR debridement 06/06: -per vascular surgery/ID chronic HFpEF/pulm HTN/venous ins'y - 07/11 with mild-mod dec EF, but most recently with nl LV function on 12/11 echo. - pt with volume overload during mult prior admits here--vol status is always difficult to assess given morbidly obese neck hiding JVD, and chronically very abnormal CXR markings due to overlying soft tissue - currently with significant total body volume overload and anasarca, s/p transfusions here. - received lasix 80 mg IV BID here (dosing she received on prior admits) with stable (improving) bun/creat - 06/07: BUN/CR stable if not slightly better. Sx may be improving (improved appetite), but no change on exam. Weights up but may not be accurate. Per nursing, diapers have been wet but unable quantitatively assess uop. Will give trial of 100 mg IV BID, low threshold to decrease back to 80 if BUN/creatinine doesn't improve. -06/08: pt lift scale wt trending up 277 to 284 over the past 3 days; bun improved, creat stable in mid-range of her baseline values here in past; no low BPs--started lasix 100 iv bid yesterday--given she remains very comfortable without sob, will cont same for now and reassess wts and bun/creat daily -06/09: bun/creat stable/improving; BNP only 61--suspect volume excess is principally localized to legs (due to chronic venous ins'y/lymphedema, and possible cellulitis now); cont same lasix for now--low threshold to cut back once bun/creat starts rising -06/10: labs remain stable, cont same diuretics - BIPAP as doing CAD, h/o NSTEMI: - has previously refused stress tests. h/o NSTEMI x 2 (2012, 2014) in setting of demand (sepsis/anemia) -MATEO deferred previously due to labile creat's--no change; -cath previously deferred due to: pt preference; hi risk of vascular complications (obese habitus), hi risk of BERNARDINO, and h/o recurrent anemia, possible occult GIB - currently without angianal sx's. EKG unchanged. Con't statin, coreg imdur. - hgb stable for several days since transfusions, at her chronic baseline (8s-9s )--resume ASA 81, monitor H/H trend CKD/michael: -baseline creat 1.4-2.2 since 12/11 here -stable renal fxn here, monitor with diuresis anemia: -chronic, baseline runs 8s-9s; -freq acute drops/PRBCs in past -s/p transfusion here HTN: -controlled -cont same meds
--- NOTE | 2016-06-10 09:44 | DS ---
Physical Examination Vital Signs: Vital Signs Temperature 97.9 F 06/10/16 06:00 Pulse Rate 56 L 06/10/16 06:00 Respiratory Rate 20 06/10/16 06:00 Blood Pressure 118/58 06/10/16 06:00 O2 Sat by Pulse Oximetry (%) 98 06/10/16 05:00 Findings/Remarks: had some foot pain yesterday but better today; afebrile; still on IV ATB per ID; wants to go back to [place]; will d/w ID if OK to switch to PO ATB; d.w dr Gavin lea OK to tx to [place] from surgical point; will continue to see her in [place] and wound care in [place] to start HBO tx per surgery Constitutional: Yes: No Distress, Calm Eyes: Yes: Conjunctiva Clear HENT: Yes: Atraumatic Neck: Yes: Supple Cardiovascular: Yes: Regular Rate and Rhythm Respiratory: Yes: CTA Bilaterally Gastrointestinal: Yes: Soft. No: Distention, Tenderness Renal/: No: Hematuria Musculoskeletal: No: Joint Stiffness, Joint Swelling Extremities: No: Cold, Cool Edema: Yes Integumentary: Yes: Erythema (LLE better) Wound/Incision: Yes: Dressing Dry and Intact Neurological: Yes: WNL, Alert, Oriented Psychiatric: Yes: WNL, Alert, Oriented. No: Agitated, Suicidal Ideation Labs: CBC, BMP 06/10/16 05:35 06/10/16 05:35 Discharge Summary Reason For Visit: CELLULITIS OF LOWER EXTREMITY, HYPERKALEMIA Current Active Problems Acute on chronic renal failure (Acute) Anemia (Acute) Bradycardia (Acute) CKD (chronic kidney disease), stage III (Acute) CO2 retention (Acute) Diabetes (Acute) Fluid overload (Acute) Hyperkalemia (Acute) Hypermagnesemia (Acute) Hypernatremia (Acute) Leg edema (Acute) Morbid obesity (Acute) Pulmonary hypertension (Acute) Renal insufficiency (Acute) Ulcer of foot (Acute) Visceral diabetic neuropathy (Acute) Procedures: Principal: admitted with anemia, HyperK; Left foor wound and infection Other Procedures: foot debridement per surgery;. IV ATB per ID;. transfused PRBCs Hospital Course: improved with above; tx to [place] wound care per surgery ATB per ID f/u labs; see DC instructions. Condition: Improved - Instructions Diet, Activity, Other Instructions: f/u CBC CMP q primo weekly; foot wound care per surgery; f/u with dr Alonso weekly in [place]; to start hyperbaric O2 treatemtn per surgery; Antibiotics per ID; diabetes control; BGM QAM DVT PFX; falls, decubs aspiration PFX DNR DNI; Referrals: Amina Wong [Primary Care Provider] - - Home Medications Comprehensive Discharge Medication List: Ambulatory Orders Albuterol 0.083% Nebulizer Adina [Ventolin 0.083% Nebulizer Soln -] 1 neb NEB Q6H 04/19/16 Calcium Acetate 667 mg PO TID 04/19/16 Carvedilol 12.5 mg PO BID 04/19/16 Folic Acid 1 mg PO DAILY 04/19/16 Gabapentin [Neurontin] 300 mg PO DAILY 04/19/16 Heparin - 5,000 units IJ BID 04/19/16 Insulin (Levemir) [Levemir Vial] 20 unit SQ DAILY 04/19/16 Isosorbide Mononitrate [Isosorbide Mononitrate ER] 30 mg PO DAILY 04/19/16 Loratadine 10 mg PO DAILY 04/19/16 Metoclopramide HCl 5 mg PO TID 04/19/16 Sennosides [Senna] 2 tab PO HS 04/19/16 Simethicone 80 mg PO DAILY 04/19/16 Simvastatin 40 mg PO HS 04/19/16 Acetaminophen [Pain Relief] 650 mg PO BID PRN #0 05/17/16 Insulin Sliding Scale [Novolog Vial Sliding Scale -] 1 vial SQ ACHS units 05/17 Polyethylene Glycol 3350 [Miralax 119 gm Btl -] 17 gm PO BID bottle 05/17/16 Torsemide [Demadex -] 40 mg PO DAILY tablet 05/17/16 Vitamin A & D Top Oint - 1 applic TP BID tube 05/17/16 Cyanocobalamin [Vitamin B12 -] 1,000 mcg PO DAILY 06/03/16 Epoetin Dawood [Procrit] 10,000 unit IJ ASDIR 06/03/16 Fluticasone Prop 0.05% Nasal [Flonase -] 1 spray NS DAILY 06/03/16 Glycerin/Cellulose [Jigna-Lub Gel] 10 ml PO BID 06/03/16 Levothyroxine [Synthroid -] 50 mcg PO DAILY@0700 06/03/16 Lidocaine 5% Patch [Lidoderm Patch -] 1 patch TP DAILY 06/03/16 Oxycodone HCl/Acetaminophen [Percocet 5-325 mg Tablet] 2 tab PO Q8H PRN Potassium Chloride [Klor-Con] 20 meq PO DAILY 06/03/16
[2016-06-10] MEDS: CARVEDILOL 6.25 MG TABLET (FP) PO SCH ×2 (11:25→22:04)
[2016-06-10] MEDS: LORATADINE 10 MG TABLET PO SCH (11:25)
[2016-06-10] MEDS: ASPIRIN COATED 81 MG TABLET.EC PO SCH (11:26)
[2016-06-10] MEDS: FOLIC ACID 1 MG TABLET (FP) PO SCH (11:26)
[2016-06-10] MEDS: FLUTICASONE PROP 0.05% 16 GM NASAL SPRAY NS SCH (11:26)
[2016-06-10] MEDS: HEPARIN NA (PORCINE) 5,000 UNITS/ML 1ML VIAL SQ SCH ×2 (11:26→22:04)
[2016-06-10] MEDS: LIDOCAINE 5% TOPICAL PATCH TP SCH (11:28)
[2016-06-10] MEDS: ISOSORBIDE MONONITRATE 30 MG TAB.SR.24H (FP) PO SCH (11:28)
[2016-06-10] MEDS: NYSTATIN POWDER 100,000 UNITS/GM - 15 GM TOPICAL POWDER TP SCH ×2 (11:29→22:07)
[2016-06-10] MEDS: POLYETHYLENE GLYCOL 3350 119 GM BTL PO SCH ×2 (11:29→22:06)
[2016-06-10] MEDS: GABAPENTIN 300 MG CAPSULE (FP) PO SCH (11:29)
[2016-06-10] MEDS: SIMETHICONE 80 MG TAB.CHEW (FP) PO SCH (11:29)
[2016-06-10] MEDS: CYANOCOBALAMIN 1,000 MCG TABLET (FP) PO SCH (11:30)
--- NOTE | 2016-06-10 13:37 | PN ---
Progress Note (short form) - Note Progress Note: nad Vital Signs Period Temp Pulse Resp BP Sys/Hagan Pulse Ox Last 24 Hr 97.9 F-98.8 F 56-78 18-20 110-149/44-69 97-99 cor-rrr lungs clear abd soft,nt ext top eschar still present, lower eschar removed no purulence noted, minimal erythema noted CBC, BMP 06/10/16 05:35 06/10/16 05:35 Microbiology 06/06/16 14:30 Gram Stain - Final Foot - Left Dorsum Wound Culture - Preliminary Providencia Stuartii Pseudomonas Aeruginosa Acinetobacter Baumannii/Haemol Staphylococcus Latex Coag Pos Vr Ec Faecalis Streptococcus Species 06/04/16 12:45 Blood Culture - Final Blood - Peripheral Venous NO GROWTH AFTER 5 DAYS INCUBATION 06/04/16 12:40 Blood Culture - Final Blood - Peripheral Venous NO GROWTH AFTER 5 DAYS INCUBATION a/p s/p debridement of left foot cellulitis resolving wound culture is from eschar-polymicrobial- no need to treat d/w Dr Jackson jansen augmentin 500 bid for one week should have close wound care f/u
--- NOTE | 2016-06-10 13:43 | PN ---
Progress Note (short form) - Note Progress Note: Vascular Surgery pt seen and examined. Dressing changed. Wound nice and clean. ID placed pt on augmentin. Can go back to [place]. Pt to start HBO on 06/14. Cont santyl daily to wound Gaurav Alonso DO
--- NOTE | 2016-06-10 13:50 | PATH ---
Surgical Pathology Report Patient Name: SHANTELL VASQUEZ [facility]. Rec. #: [id number] /Age/Gender: 1945 (Age: 71) / F Account: [id number] Location: [address] [place] [address]/[facility] Taken: 06/06/2016 Received: 06/07/2016 Reported: 06/10/2016 Physicians: Gaurav Wong M.D. Specimen(s) Received DEBRIDEMENT LEFT DORSUM FOOT Clinical History Chronic ulcerated left foot Final Diagnosis SKIN, LEFT DORSAL FOOT ESCHAR, EXCISION: GANGRENOUS NECROSIS. Electronically Signed Gabriel Allen M.D. Gross Description Received in formalin, labeled "left dorsum foot eschar" is a 7.5 x 5.3 x 0.3 cm flowers green, irregular, unoriented portion of necrotic skin. [employer] sections are submitted in one cassette. /06/07/201606/07/2016
[2016-06-10] MEDS: VITAMINS A AND D TOPICAL OINTMENT 60 GM TUBE TP SCH ×2 (16:28→22:07)
[2016-06-10] MEDS: COLLAGENASE CLOSTRIDIUM HIST. 30 GRAMS TUBE TP SCH (16:28)
[2016-06-10] MEDS: ATORVASTATIN CA 20 MG TABLET (FP) PO SCH (22:05)
[2016-06-10] MEDS: SENNOSIDES 8.6MG TABLET (FP) PO SCH (22:08)
[2016-06-11] MEDS: ALBUTEROL SO4 0.083% IH SOL 2.5 MG/3 ML VIAL.NEB. NEB SCH ×3 (00:21→11:20)
[2016-06-11] MEDS: PIPERACILLIN/TAZOB 2.25 GM 50 ML IVPB SCH ×2 (01:16→11:16)
[2016-06-11] MEDS: ACETAMINOPHEN 325 MG TABLET (FP) PO PRN (04:10)
[2016-06-11] MEDS: oxyCODONE HCL 5 MG TABLET PO PRN (04:11)
[2016-06-11] MEDS: FUROSEMIDE 40 MG/4 ML INJECTABLE VIAL IVPUSH SCH (06:14)
[2016-06-11] MEDS: METOCLOPRAMIDE HCL 10 MG TABLET (FP) PO SCH (06:17)
[2016-06-11] MEDS: LEVOTHYROXINE NA 50 MCG TABLET (FP) PO SCH (06:19)
[2016-06-11] MEDS: INSULIN DETEMIR 100 UNITS/ML MDV SQ SCH (06:19)
[2016-06-11] MEDS: INSULIN SLIDING SCALE (NOVOLOG) 1 VIAL SQ SCH ×2 (06:19→11:48)
[2016-06-11 07:58] LABS: CALCIUM 8.1 mg/dL (8.5-10.1); CREATININE 1.7 mg/dL (0.55-1.02)
[2016-06-11] MEDS: CALCIUM ACETATE 667 MG CAPSULE (FP) PO SCH (08:30)
[2016-06-11 11:11] VITALS: BP 120/50; PULSE 73; TEMP 98.3
[2016-06-11] MEDS: FLUTICASONE PROP 0.05% 16 GM NASAL SPRAY NS SCH (11:11)
[2016-06-11] MEDS: SIMETHICONE 80 MG TAB.CHEW (FP) PO SCH (11:12)
[2016-06-11] MEDS: ASPIRIN COATED 81 MG TABLET.EC PO SCH (11:12)
[2016-06-11] MEDS: CYANOCOBALAMIN 1,000 MCG TABLET (FP) PO SCH (11:12)
[2016-06-11] MEDS: HEPARIN NA (PORCINE) 5,000 UNITS/ML 1ML VIAL SQ SCH (11:12)
[2016-06-11] MEDS: GABAPENTIN 300 MG CAPSULE (FP) PO SCH (11:12)
[2016-06-11] MEDS: CARVEDILOL 6.25 MG TABLET (FP) PO SCH (11:12)
[2016-06-11] MEDS: ISOSORBIDE MONONITRATE 30 MG TAB.SR.24H (FP) PO SCH (11:13)
[2016-06-11] MEDS: FOLIC ACID 1 MG TABLET (FP) PO SCH (11:13)
[2016-06-11] MEDS: LORATADINE 10 MG TABLET PO SCH (11:13)
[2016-06-11] MEDS: LIDOCAINE 5% TOPICAL PATCH TP SCH ×2 (11:13→11:46)
[2016-06-11] MEDS: POLYETHYLENE GLYCOL 3350 119 GM BTL PO SCH ×2 (11:13→11:30)
[2016-06-11] MEDS: COLLAGENASE CLOSTRIDIUM HIST. 30 GRAMS TUBE TP SCH (11:43)
[2016-06-11] MEDS: VITAMINS A AND D TOPICAL OINTMENT 60 GM TUBE TP SCH (11:43)
[2016-06-11] MEDS: NYSTATIN POWDER 100,000 UNITS/GM - 15 GM TOPICAL POWDER TP SCH (11:43)
== END 2016-06-11 11:54 | DRG 982 ==
LOC: JER 18:52 → JERBED 21:04 → J5S 06-04 05:52
PROVIDERS: ADMIT Internal Medicine; ATTEND Internal Medicine
PROC: 30233N1 Transfusion of Nonautologous Red Blood Cells into Peripheral Vein, Percutaneous Approach (ICD-10-PCS; 2016-06-04)
PROC: 0KBW0ZZ Excision of Left Foot Muscle, Open Approach (ICD-10-PCS; principal; 2016-06-06 13:00)
DX: E11.52 Type 2 diabetes mellitus with diabetic peripheral angiopathy with gangrene (principal); L03.116 Cellulitis of left lower limb; Z68.43 Body mass index [BMI] 50.0-59.9, adult; I13.0 Hypertensive heart and chronic kidney disease with heart failure and stage 1 through stage 4 chronic kidney disease, or unspecified chronic kidney disease; I50.32 Chronic diastolic (congestive) heart failure; N17.9 Acute kidney failure, unspecified; L97.529 Non-pressure chronic ulcer of other part of left foot with unspecified severity; D63.1 Anemia in chronic kidney disease; K21.9 Gastro-esophageal reflux disease without esophagitis; E03.9 Hypothyroidism, unspecified; Z99.81 Dependence on supplemental oxygen; E66.01 Morbid (severe) obesity due to excess calories; Z71.3 Dietary counseling and surveillance; I25.2 Old myocardial infarction; G47.30 Sleep apnea, unspecified; E11.40 Type 2 diabetes mellitus with diabetic neuropathy, unspecified; Z79.4 Long term (current) use of insulin; E87.5 Hyperkalemia; I87.2 Venous insufficiency (chronic) (peripheral); I27.2 Other secondary pulmonary hypertension; E11.22 Type 2 diabetes mellitus with diabetic chronic kidney disease; N18.3 Chronic kidney disease, stage 3 (moderate); B96.5 Pseudomonas (aeruginosa) (mallei) (pseudomallei) as the cause of diseases classified elsewhere; B95.62 Methicillin resistant Staphylococcus aureus infection as the cause of diseases classified elsewhere
CPT/HCPCS: 36415; 36430; 71010-TC; 80048; 80053; 81003; 81015; 82272; 82607; 82728; 83540; 83735; 83880; 84443; 85025; 85027; 85610; 85651; 86850; 86870; 86900; 86901; 86902; 86922; 87040; 87070; 87086; 87186; 87205; 88304-TC; 93005; 93010; 94640; 94660; 94760; 99283-25; J1644; P9038; P9058

== ENCOUNTER 2016-06-26 12:40 | Inpatient (IN) | payer OTHER ==
--- NOTE | 2016-06-26 13:03 | PDOC ---
History of Present Illness - History of Present Illness Initial Comments: 06/26/16 13:47 The patient is a 71 year old female with significant past medical history of hypertension, hyperlipidemia, diabetes, CAD, CHF, MIx2, COPD (O2 dependent 2L), and renal insufficiency who presents to the emergency department sent from wound care by Dr. Alonso for further evaluation of a left lower extremity wound. The patient is from [facility] and follows up with Dr. Alonso in wound care. She states that as of 1 week ago the left lower extremity wounds were noted to be black. She denies any radiating pain. She denies associated fevers and chills. The patient states she is non ambulatory at the longterm. The patient was admitted to [facility] and had debridement of the wound with hyperbaric oxygen treatment since discharge. <Gina Belcher - Last Filed: 06/26/16 14:38> - General History Source: Patient, Old Records <Johanna Hicks - Last Filed: 06/26/16 14:58> - General Chief Complaint: Wound Stated Complaint: WOUND CHECK Time Seen by Provider: 06/26/16 12:48 Past History <Gina Belcher - Last Filed: 06/26/16 14:38> - Past Medical History Anemia: Yes (chronic kidney disease) Asthma: Yes Cancer: No Cardiac Disorders: Yes (CA, cad, CHF) CVA: No COPD: Yes CHF: Yes Dementia: No Diabetes: Yes GI Disorders: Yes (gerd, constipation, OBESITY.) Disorders: Yes (UTI) HTN: Yes Hypercholesterolemia: Yes Liver Disease: No Seizures: No Thyroid Disease: Yes (hypothyroidism) - Surgical History Abdominal Surgery: Yes Appendectomy: No Cardiac Surgery: No Cholecystectomy: No Lung Surgery: No Neurologic Surgery: No Orthopedic Surgery: Yes (amputationr great toe) - Immunization History Td Vaccination: Yes Immunization Up to Date: Yes - Psycho/Social/Smoking Cessation Hx Anxiety: No Suicidal Ideation: No Smoking Status: No Smoking History: Never smoked Years of Tobacco Use: 0 Have you smoked in the past 12 months: No Number of Cigarettes Smoked Daily: 0 Cigars Per Day: 0 Hx Alcohol Use: No Drug/Substance Use Hx: No Substance Use Type: None Hx Substance Use Treatment: No <Johanna Hicks - Last Filed: 06/26/16 14:58> - Past Medical History Allergies/Adverse Reactions: Allergies Allergy/AdvReac Type Severity Reaction Status Date / Time Sulfa (Sulfonamide Allergy Unknown Verified 06/26/16 12:46 Antibiotics) [Sulfa(Sulfonamide Antibiotics)] tuberculin, purified protein Allergy Unknown Verified 06/26/16 12:46 deriva [From Tubersol] tuberculin,PPD,multi-puncture Allergy Unknown Verified 06/26/16 12:46 ppd Allergy Unknown Uncoded 06/26/16 12:46 Home Medications: Ambulatory Orders Acetaminophen 650 mg PO Q4H PRN 06/26/16 Albuterol 0.083% Nebulizer Adina [Ventolin 0.083%] 1 neb NEB QID 06/26/16 Aspirin [Aspirin EC] 81 mg PO DAILY 06/26/16 Calcium Acetate 667 mg PO TID 06/26/16 Carvedilol 12.5 mg PO BID 06/26/16 Collagenase Clostridium Hist. [Santyl] 1 applic TP DAILY 06/26/16 Cyanocobalamin [Vitamin B12 -] 1,000 mcg PO DAILY 06/26/16 Epoetin Dawood [Procrit] 10,000 unit IJ WEEKLY 06/26/16 Fluticasone Propionate [Flonase Allergy Relief] 9.9 ml NS DAILY 06/26/16 Folic Acid 1 mg PO DAILY 06/26/16 Gabapentin 300 mg PO HS 06/26/16 Heparin - 5,000 unit SQ BID 06/26/16 Insulin (Levemir) [Levemir Vial] 20 unit SQ DAILY 06/26/16 Insulin Regular [NOVOLIN R VIAL *IVPUSH / ER / ICU Only*] 0 unit SQ QID Isosorbide Mononitrate [Isosorbide Mononitrate ER] 30 mg PO DAILY 06/26/16 Levothyroxine [Synthroid -] 50 mcg PO DAILY 06/26/16 Lidocaine 5% Patch [Lidoderm Patch -] 1 patch TP DAILY 06/26/16 Loratadine 10 mg PO DAILY 06/26/16 Mag Hydrox/Al Hydrox/Simeth [Jigna-Lanta Liquid] 355 ml PO BID 06/26/16 Metoclopramide HCl 5 mg PO TID 06/26/16 Nystatin Cream [Mycostatin] 1 applic TP BID 06/26/16 Oxycodone HCl 5 mg PO Q6H PRN 06/26/16 Polyethylene Glycol 3350 [Purelax] 17 gm PO BID 06/26/16 Sennosides/Docusate Sodium [Senna Laxative Tablet] 2 each PO HS 06/26/16 Simethicone 80 mg PO QID 06/26/16 Simvastatin 40 mg PO HS 06/26/16 Torsemide 20 mg PO DAILY 06/26/16 Review of Systems - Review of Systems Able to Perform ROS?: Yes Comments:: 06/26/16 13:48 GENERAL/CONSTITUTIONAL: No: fever, chills, weakness, loss of appetite. HEAD, EYES, EARS, NOSE AND THROAT: No: change in vision, ear pain, discharge, sore throat, throat swelling. CARDIOVASCULAR: No: chest pain, lightheadedness, palpitations, syncope RESPIRATORY: No: cough, shortness of breath, wheezing, hemoptysis, stridor. GASTROINTESTINAL: No: nausea, vomiting, abdominal cramping, diarrhea, rectal bleeding, constipation. GENITOURINARY: No: dysuria, hematuria, frequency, urgency, flank pain. MUSCULOSKELETAL: No: back pain, neck pain, joint pain, muscle swelling or pain SKIN AND BREASTS: +LLE wound. No: lesions, pallor, rash or easy bruising. NEUROLOGIC: No: headache, vertigo, paresthesias, weakness ENDOCRINE: No: unexplained weight gain or loss HEMATOLOGIC/LYMPHATIC: No: anemia, easy bleeding, swelling nodes <Gina Belcher - Last Filed: 06/26/16 14:38> *Physical Exam - Vital Signs Last Vital Signs Temp Pulse Resp BP Pulse Ox 98.3 F 57 L 18 126/63 99 06/26/16 12:42 06/26/16 12:42 06/26/16 12:42 06/26/16 12:42 06/26/16 12:42 - Physical Exam Comments: 06/26/16 14:38 GENERAL: The patient is in no acute distress. HEAD: Normal with no signs of trauma. EYES: PERRLA, EOMI, sclera anicteric, conjunctiva clear. ENT: Ears normal, nares patent, oropharynx clear without exudates. Moist mucous membranes. NECK: Normal range of motion, supple without lymphadenopathy, JVD, or masses. LUNGS: Limited lung exam, but breath sounds equal, clear to auscultation bilaterally. No wheezes, and no crackles. HEART: Regular rate and rhythm, normal S1 and S2 without murmur, rub or gallop. ABDOMEN: +Morbidly obese. Soft, nontender, normoactive bowel sounds. No guarding, no rebound.+Local skin irritation to the right groin. EXTREMITIES: +LLE with a [id number] wound and 5x6cm wound on dorsal aspect with gangrenous 3rd toe. There is a 2x3cm wound on the heel of LLE. +LLE is erythematous and warm. +Bilateral 3+ pitting edema to the thigh. NEUROLOGICAL: Cranial nerves II through XII grossly intact. Normal speech. No focal neurological deficits. MUSCULOSKELETAL: Back non-tender to palpation, no CVA tenderness SKIN: Warm, dry, normal turgor, no rashes or lesions noted. <Gina Belcher - Last Filed: 06/26/16 14:38> - Vital Signs Last Vital Signs Temp Pulse Resp BP Pulse Ox 98.3 F 57 L 18 126/63 99 06/26/16 12:42 06/26/16 12:42 06/26/16 12:42 06/26/16 12:42 06/26/16 12:42 <Johanna Hicks - Last Filed: 06/26/16 14:58> Heart Score/ECG Review #1 ECG reviewed & interpreted by me at: 14:57 06/26/16 14:57 Twelve-lead EKG was performed and reviewed by me. There is normal sinus rhythm with a normal rate of 57 bpm. The axis is normal. The intervals are normal - pr: 174ms, QRS:86ms, QTc:422ms. There are no ST elevations or depressions. T wave inversions I, aVL, t wave flattening v5-v6 <Johanna Hicks - Last Filed: 06/26/16 14:58> ED Treatment Course - LABORATORY CBC & Chemistry Diagram: 06/26/16 13:26 06/26/16 13:26 - Medications Given in the ED: ED Medications Discontinued Medications Generic Name Dose Route Start Last Admin Trade Name Freq PRN Reason Stop Dose Admin Piperacillin Sod/Tazobactam Sod 3.375 gm 06/26/16 13:10 06/26/16 13:38 Zosyn 3.375gm Ivpb (Pre-Docked) IVPB 06/26/16 13:11 3.375 gm NOW ONE Administration Protocol <Gina Belcher - Last Filed: 06/26/16 14:38> - LABORATORY CBC & Chemistry Diagram: 06/26/16 13:26 06/26/16 13:26 - RADIOLOGY Radiology Studies Ordered: Category Date Time Status CHEST X-RAY PORTABLE* [RAD] Stat Radiology 06/26/16 12:58 Ordered <Johanna Hicks - Last Filed: 06/26/16 14:58> Medical Decision Making - Medical Decision Making 06/26/16 13:03 A portion of this note was documented by scribe services under my direction. I have reviewed the details of the note, within reason, and agree with the documentation with the following case summary and management plan written by me. Nursing documentation reviewed and incorporated into medical decision making This is a 71-year-old female with a history of chronic lower extremity wound for which she had an incision and debridement. Pt has been undergoing HBO Pt demonstrates little to no improvement of her wound since then Pt seen this morning by Dr Alonso Pt sent to the ER for admission, further surgical management 06/26/16 13:[address] Wong She saw this patient this morning with Dr Alonso in the longterm Will admit to Med surg Pt will need antibiotics and further surgical intervention 06/26/16 13:11 Based on chart review, Pt previously was on Empiric Zosyn Upon discharge pt discharged on Augmentin 06/26/16 14:31 Laboratory Tests 06/10/16 06/26/16 06/26/16 05:35 13:26 13:26 WBC 6.3 8.1 Hgb 8.8 L 8.3 L Hct 27.4 L 26.9 L Plt Count 186 228 D Sodium 135 L Potassium 5.5 H D Chloride 96 L Carbon Dioxide 30 BUN 85 H Creatinine 2.1 H D 06/26/16 14:44 Elevated potassium Gentle hydration Calcium gluconate given EKG no peaked T waves Clinical Impression: gangrene, cellulitis, hyperkalemia <Johanna Hicks - Last Filed: 06/26/16 14:58> *DC/Admit/Observation/Transfer - Attestations Scribe Attestion: 06/26/16 13:48 Documentation prepared by Gina Belcher, acting as medical affairs director for Johanna Hicks MD. <Gina Belcher - Last Filed: 06/26/16 14:38> - Discharge Dispostion Admit: Yes <Johanna Hicks - Last Filed: 06/26/16 14:58> Diagnosis at time of Disposition: Gangrene Ulcer of foot Qualifiers: Laterality: left Non-pressure ulcer stage: with fat layer exposed Qualified Code(s): L97.522 - Non-pressure chronic ulcer of other part of left foot with fat layer exposed - Discharge Dispostion Condition at time of disposition: Stable - Referrals
[2016-06-26] MEDS ORDERED: PIPERACILLIN/TAZOB 3.375 GM/50 ML PRE-DOCKED IVPB ONE (13:10)
[2016-06-26] MEDS ORDERED: PIPERACILLIN/TAZOB 3.375 GM 50 ML IVPB ONE (13:32)
[2016-06-26 13:53] LABS: BASOPHIL 0.6 % (0-2.0); MCH 27.6 pg (25.7-33.7); MCHC 30.8 g/dl (32.0-36.0); MEAN CELL VOLUME 89.7 fl (80-96); NEUTROPHILS 76.1 % (42.8-82.8); PLATELET COUNT 228 K/MM3 (134-434); RDW 16.2 % (11.6-15.6); WHITE BLOOD COUNT 8.1 K/mm3 (4.0-10.0)
[2016-06-26 14:03] LABS: BILIRUBIN,TOTAL 0.5 mg/dL (0.2-1.0); CALCIUM 8.4 mg/dL (8.5-10.1); CREATININE 2.1 mg/dL (0.55-1.02); TOT PROT 6.3 g/dl (6.4-8.2)
[2016-06-26 14:13] LABS: INR 1.32 (0.82-1.09); PROTHROMBIN TIME (PATIENT) 14.6 SEC (9.98-11.88)
--- NOTE | 2016-06-26 14:14 | EKG ---
Test Reason : Blood Pressure : / mmHG Vent. Rate : 057 BPM Atrial Rate : 057 BPM P-R Int : 174 ms QRS Dur : 086 ms QT Int : 434 ms P-R-T Axes : 061 -09 134 degrees QTc Int : 422 ms SINUS BRADYCARDIA WITH FUSION COMPLEXES T WAVE ABNORMALITY, CONSIDER LATERAL ISCHEMIA ABNORMAL ECG WHEN COMPARED WITH ECG OF 03-JUN-2016 19:24, FUSION COMPLEXES ARE NOW PRESENT Confirmed by NAM PFEIFFER, ANTONIO ([id number]) on 06/26/2016 2:14:04 PM Referred By: Confirmed By:ANTONIO BROWNING MD
[2016-06-26 14:16] LABS: ACTIVATED PTT 29.4 SECONDS (26.9-34.4)
[2016-06-26] MEDS ORDERED: CALCIUM GLUCONATE 10% - 1,000 MG/10 ML VIAL IVPB ONE (14:31)
[2016-06-26] MEDS ORDERED: CALCIUM GLUCONATE 10% - 1,000 MG/10 ML VIAL ONE (14:37)
[2016-06-26] MEDS ORDERED: SODIUM CHLORIDE 1,000 ML IV STA (14:43)
--- NOTE | 2016-06-26 15:25 | PN ---
Progress Note (short form) - Note Progress Note: ID consult dictated imp/reccd morbidly obese 71 year old NHR with diabetes, legally blind, nonambulatory with worsening ulcer of left foot s/p debridement and iv antibiotics 06/06 she has been receiving HBO as outpt with worsening of her leg wound (was quite clean at time of discharge) diabetic foot infection with cellulitis and gangrene prior cultures with MRSA and pseudomonas would treat with vancomycin and f/u levels (patient with CKD) continue zosyn for gram negative and anaerobic coverage f/u with Dr Alonso regarding surgery and debridement
--- NOTE | 2016-06-26 15:55 | PN ---
Progress Note (short form) - Note Progress Note: Vascular Surgery Pt seen and examined at [facility]. Pt with gangrene of the toe. Tendons are exposed in left fore-foot. Will need angiogram once creatinine gets better. Will need renal consult. Can do angiogram under CO2 as well. Santyl to all wounds. Gaurav Alonso DO
[2016-06-26] MEDS ORDERED: VANCOMYCIN 1,250 MG in DEXTROSE 5%-WATER - 250 ML IVPB ONE (16:00)
[2016-06-26 16:31] VITALS: BMI 53.4
[2016-06-26] MEDS: COLLAGENASE CLOSTRIDIUM HIST. 30 GRAMS TUBE TP SCH ×2 (17:08→22:30)
[2016-06-26] MEDS: PIPERACILLIN/TAZOB 3.375 GM/50 ML PRE-DOCKED IVPB SCH (17:08)
--- NOTE | 2016-06-26 17:18 | CONS ---
INFECTIOUS DISEASE CONSULTATION DATE OF CONSULTATION: 06/26/2016 HISTORY OF PRESENT ILLNESS: This is a 71-year-old woman from the group home. She is morbidly obese with diabetes. She is legally blind and nonambulatory. She was recently in the hospital from June 03 to June 11 with cellulitis of her leg. She had developed some bullous lesions on that leg which ultimately became left shallow-based ulcerations that became necrotic. This was in May. She was admitted to the hospital for management of the wound. During that admission, she was treated with IV antibiotics. She subsequently underwent debridement of the wound on June 06. Post surgery, the wound looked quite good. There was minimal erythema. She still had an eschar present. The lower eschar had been removed and there was no purulence noted. She was discharged to the group home on Augmentin to follow up with Wound Care. Apparently, she has been attending hyperbaric therapy since discharge and the wound has markedly worsened; it has become black and foul smelling. There have been no associated fevers or chills. PAST MEDICAL HISTORY: 1. Chronic kidney disease. 2. Asthma. 3. Coronary artery disease status post AR and CHF. 4. History of COPD. 5. Morbid obesity. 6. GERD. 7. Constipation. 8. History of UTIs in the past. 9. Hypertension. 10. Hypercholesterolemia. 11. Hypothyroidism. 12. History of amputation of the right great toe. ALLERGIES: 1. SULFA MEDICATIONS. 2. PPD. MEDICATIONS: Her medications at the group home include: 1. Albuterol nebulizer. 2. Aspirin. 3. Calcium acetate. 4. Coreg. 5. Santyl. 6. Vitamin B12. 7. Procrit. 8. Flonase. 9. Folic acid. 10. Gabapentin. 11. Subcutaneous heparin. 12. Insulin. 13. Isosorbide. 14. Synthroid. 15. Claritin. 16. Reglan. 17. Oxycodone. 18. MiraLAX. 19. Senna. 20. Simethicone. 21. Simvastatin. 22. Torsemide. FAMILY HISTORY: Noncontributory. SOCIAL HISTORY: She is chronic resident of the group home. She is legally blind. She does not ambulate. REVIEW OF SYSTEMS: Negative for shortness of breath. She does note that she has had increasing peripheral edema. PHYSICAL EXAM: General: She is awake and alert, in no acute distress. Vital signs: Temperature is 98.3. Pulse is 57. Blood pressure 126/63. Respiratory rate of 18. O2 saturation is 99%. She weighs 300 pounds. HEENT: She is normocephalic. Her neck is supple. She has no thrush. Lungs: Diminished breath sounds at the bases. Heart: Regular rate and rhythm. Abdomen: Soft, nontender. Extremities: Extremities are notable for bilateral pitting edema. On the left leg, she has these open ulcers with necrotic base. She has a gangrenous third toe. She also has a superficial ulcer on the heel of the left lower extremity. The left lower extremity is erythematous and warm. LABS: Her labs are notable for a white count of 8.1, hemoglobin 8.3, platelets at 228. INR is 1.3. BUN and creatinine are 85 and 2.1, respectively. Prior cultures of her foot reveal polymicrobial michael including providenciae, pseudomonas, Acinetobacter, MRSA, VRE and Enterococcus avium. RADIOGRAPHIC FINDINGS: Chest x-ray shows cardiomegaly. SUMMARY: In summary, this is a 71-year-old woman with diabetes with a worsening left foot infection despite debridement and hyperbaric treatment. She appears to have cellulitis and gangrene of the third toe, which is quite foul smelling. She is being admitted for IV antibiotics. RECOMMENDATIONS: 1. We will treat her with vancomycin, given the prior wound with MRSA, as well as piperacillin/tazobactam. 2. She will require debridement and probable amputation of that third toe. 3. Wound care to be determined by Dr. Alonso as well as surgery. 4. Further recommendations to follow based on her clinical course. JAZMÍN MARIN M.D. [id number]
[2016-06-26] MEDS ORDERED: PT OWN MED DRAWER 7, Y5N ONE (17:35)
[2016-06-26] MEDS ORDERED: OXYCODONE/APAP 5/325MG COMBO TABLET PO PRN (18:23)
[2016-06-26] MEDS ORDERED: SODIUM CHLORIDE 1,000 ML IV SCH (18:30)
[2016-06-26] MEDS ORDERED: ACETAMINOPHEN 325 MG TABLET (FP) PO PRN (18:34)
[2016-06-26] MEDS ORDERED: EPOETIN ALFA 10,000 UNIT/1 ML VIAL SQ SCH (19:00)
[2016-06-26] MEDS: HEPARIN NA (PORCINE) 5,000 UNITS/ML 1ML VIAL SQ SCH (21:16)
[2016-06-26] MEDS: ONDANSETRON 4 MG/2 ML VIAL IVPB PRN (22:12)
[2016-06-26] MEDS: CARVEDILOL 12.5 MG TABLET (FP) PO SCH (22:27)
[2016-06-26] MEDS: SENNOSIDES/DOCUSATE COMBO (SENNA PLUS) TABLET (UD) PO SCH (22:27)
[2016-06-26] MEDS: SIMETHICONE 80 MG TAB.CHEW (FP) PO SCH (22:27)
[2016-06-26] MEDS: MAG HYDROX/AL HYDROX/SIMETH 30 ML UNIT-DOSE CUP PO SCH (22:27)
[2016-06-26] MEDS: ATORVASTATIN CA 20 MG TABLET (FP) PO SCH (22:27)
[2016-06-26] MEDS: GABAPENTIN 300 MG CAPSULE (FP) PO SCH (22:27)
[2016-06-26] MEDS: INSULIN SLIDING SCALE (NOVOLOG) 1 VIAL SQ SCH (22:28)
[2016-06-26] MEDS: NYSTATIN 100,000 UNIT/GM TOPICAL CREAM 15 GM TUBE TP SCH (22:32)
[2016-06-27] MEDS ORDERED: PT OWN MED DRAWER 7, Y5N ONE (01:09)
[2016-06-27] MEDS: PIPERACILLIN/TAZOB 3.375 GM/50 ML PRE-DOCKED IVPB SCH ×4 (01:22→20:15)
[2016-06-27] MEDS: INSULIN DETEMIR 100 UNITS/ML MDV SQ SCH (06:38)
[2016-06-27] MEDS: INSULIN SLIDING SCALE (NOVOLOG) 1 VIAL SQ SCH ×4 (06:39→21:42)
[2016-06-27] MEDS: LEVOTHYROXINE NA 50 MCG TABLET (FP) PO SCH (06:39)
[2016-06-27] MEDS: METOCLOPRAMIDE HCL 10 MG TABLET (FP) PO SCH ×2 (06:39→11:09)
[2016-06-27] MEDS ORDERED: PANTOPRAZOLE SODIUM 40 MG/100 ML PRE-DOCKED IVPB SCH (06:45)
[2016-06-27] MEDS: ONDANSETRON 4 MG/2 ML VIAL IVPB PRN (06:46)
[2016-06-27 07:57] LABS: BASOPHIL 0.2 % (0-2.0); EOSINOPHIL 0.4 % (0-4.5); MCH 27.6 pg (25.7-33.7); MCHC 30.6 g/dl (32.0-36.0); MEAN CELL VOLUME 90.2 fl (80-96); MEAN PLT VOLUME 8.1 fl (7.5-11.1); NEUTROPHILS 93.8 % (42.8-82.8); PLATELET COUNT 237 K/MM3 (134-434); RDW 16.8 % (11.6-15.6); WHITE BLOOD COUNT 13.4 K/mm3 (4.0-10.0)
[2016-06-27 08:19] LABS: INR 1.37 (0.82-1.09); PROTHROMBIN TIME (PATIENT) 15.2 SEC (9.98-11.88)
[2016-06-27 08:41] LABS: BILIRUBIN,TOTAL 0.8 mg/dL (0.2-1.0); CALCIUM 8.1 mg/dL (8.5-10.1); CREATININE 2.2 mg/dL (0.55-1.02); TOT PROT 6.3 g/dl (6.4-8.2)
[2016-06-27] MEDS: FERROUS SO4 325 MG TABLET (FP) PO SCH (09:36)
[2016-06-27 09:45] LABS: TROPONIN I 0.02 ng/ml (0.00-0.05)
[2016-06-27] MEDS: ALBUTEROL SO4 0.083% IH SOL 2.5 MG/3 ML VIAL.NEB. NEB PRN ×2 (10:00→22:15)
[2016-06-27] MEDS ORDERED: COLLAGENASE CLOSTRIDIUM HIST. 30 GRAMS TUBE TP SCH (10:00)
[2016-06-27] MEDS ORDERED: SODIUM POLYSTYRENE SULFONATE 15 GM/60 ML BOTTLE PO ONE (10:15)
[2016-06-27] MEDS: CARVEDILOL 12.5 MG TABLET (FP) PO SCH ×2 (10:36→21:33)
[2016-06-27] MEDS: TORSEMIDE 20 MG TABLET (FP) PO SCH (10:36)
[2016-06-27] MEDS: LORATADINE 10 MG TABLET PO SCH (10:36)
[2016-06-27] MEDS: ISOSORBIDE MONONITRATE 30 MG TAB.SR.24H (FP) PO SCH (10:37)
[2016-06-27] MEDS: POLYETHYLENE GLYCOL 3350 119 GM BTL PO SCH (10:37)
[2016-06-27] MEDS: FOLIC ACID 1 MG TABLET (FP) PO SCH (10:37)
[2016-06-27] MEDS: NYSTATIN 100,000 UNIT/GM TOPICAL CREAM 15 GM TUBE TP SCH ×2 (10:37→21:42)
[2016-06-27] MEDS: LIDOCAINE 5% TOPICAL PATCH TP SCH (10:37)
[2016-06-27] MEDS: SIMETHICONE 80 MG TAB.CHEW (FP) PO SCH ×4 (10:39→21:42)
[2016-06-27] MEDS: CYANOCOBALAMIN 1,000 MCG TABLET (FP) PO SCH (10:40)
[2016-06-27] MEDS: oxyCODONE HCL 5 MG TABLET PO PRN (10:40)
[2016-06-27] MEDS: COLLAGENASE CLOSTRIDIUM HIST. 30 GRAMS TUBE TP SCH (10:45)
[2016-06-27] MEDS: HEPARIN NA (PORCINE) 5,000 UNITS/ML 1ML VIAL SQ SCH ×2 (11:08→21:43)
--- NOTE | 2016-06-27 11:15 | PN ---
Progress Note (short form) - Note Progress Note: called to evaluate patient. We covered for him She apparently is followed by Dr. Calhoun and last evaluated her 04/12. Discussed with Dr. Wong. She will call Dr. Calhoun. I advised an AXR in the interim given her complaints of nausea and vomiting overnight as well as tympany on exam.
--- NOTE | 2016-06-27 12:10 | CON.CARD ---
Cardiology Consult (text) - Consultation Consultation Note: CC: non healing left foot wound a/p: 71 yo with h/o HFpEF, CAD s/p CO, HTN, HL, pHTN, MIRIAM, o2 dep't copd, CKD, IDDM, hypothyroid and chronic LLE cellulitis, here with non healing left foot wound/gangrene. Patient denies any recent change in symptoms. No cp, sob, palps, dizzy, loc, pnd, orthopnea. LE edema at baseline. At baseline cannot stand, bed bound. Sent from wound care due to gangrene of foot. PMH/PSHx:Per hpi fam hx: Diabetes: Brother (ESRD on HD) social hx: Never smoked, no etoh or illicits. [facility]. ros; per hpi. Additionally no f/c/s, diarrhea, headache, cough, congestion, visual disturbances, dysuria meds: Home Medications Medication Instructions Recorded Acetaminophen 650 mg PO Q4H PRN 06/26/16 Albuterol 0.083% Nebulizer Adina 1 neb NEB QID PRN 06/26/16 [Ventolin 0.083%] Aspirin [Aspirin EC] 81 mg PO DAILY 06/26/16 Calcium Acetate 667 mg PO TID 06/26/16 Carvedilol 12.5 mg PO BID 06/26/16 Collagenase Clostridium Hist. 1 applic TP DAILY 06/26/16 [Santyl] Cyanocobalamin [Vitamin B12 -] 1,000 mcg PO DAILY 06/26/16 Epoetin Dawood [Procrit] 10,000 unit IJ WEEKLY 06/26/16 Fluticasone Propionate [Flonase 9.9 ml NS DAILY 06/26/16 Allergy Relief] Folic Acid 1 mg PO DAILY 06/26/16 Gabapentin 300 mg PO HS 06/26/16 Heparin - 5,000 unit SQ BID 06/26/16 Insulin (Levemir) [Levemir Vial] 20 unit SQ DAILY 06/26/16 Insulin Regular [NOVOLIN R VIAL 0 unit SQ QID 06/26/16 *IVPUSH / ER / ICU Only*] Isosorbide Mononitrate [Isosorbide 30 mg PO DAILY 06/26/16 Mononitrate ER] Levothyroxine [Synthroid -] 50 mcg PO DAILY 06/26/16 Lidocaine 5% Patch [Lidoderm Patch 1 patch TP DAILY 06/26/16 -] Loratadine 10 mg PO DAILY 06/26/16 Mag Hydrox/Al Hydrox/Simeth 355 ml PO BID 06/26/16 [Jigna-Lanta Liquid] Metoclopramide HCl 5 mg PO TID 06/26/16 Nystatin Cream [Mycostatin] 1 applic TP BID 06/26/16 Oxycodone HCl 5 mg PO Q6H PRN 06/26/16 Polyethylene Glycol 3350 [Purelax] 17 gm PO BID 06/26/16 Sennosides/Docusate Sodium [Senna 2 each PO HS 06/26/16 Laxative Tablet] Simethicone 80 mg PO QID 06/26/16 Simvastatin 40 mg PO HS 06/26/16 Torsemide 20 mg PO DAILY 06/26/16 pe: Vital Signs Period Temp Pulse Resp BP Sys/Hagan Pulse Ox Last 24 Hr 98.3 F-98.6 F 57-80 18-20 125-141/51-69 97-100 NAD, calm, obese, jvd tds RRR nl s1, s2 2/6 murmur at sternal border and apex scattered rhonchi bl, poor effort + bs soft obese edematous nt nd ,+ anasarca diminished distal pulses trace-1+ le edema erythema/venous stasis changes/skin excoriations and pe[place] orange changes of LE skin alert awake appropriate no carotid bruit no jaundice diaphoresis Laboratory Last Values WBC 13.4 K/mm3 (4.0-10.0) H D 06/27/16 06:30 RBC 2.99 M/mm3 (3.60-5.2) L 06/27/16 06:30 Hgb 8.2 GM/dL (10.7-15.3) L 06/27/16 06:30 Hct 26.9 % (32.4-45.2) L 06/27/16 06:30 MCV 90.2 fl (80-96) 06/27/16 06:30 MCHC 30.6 g/dl (32.0-36.0) L 06/27/16 06:30 RDW 16.8 % (11.6-15.6) H 06/27/16 06:30 Plt Count 237 K/MM3 (134-434) 06/27/16 06:30 MPV 8.1 fl (7.5-11.1) 06/27/16 06:30 Neutrophils % 93.8 % (42.8-82.8) H D 06/27/16 06:30 Lymphocytes % 2.0 % (8-40) L D 06/27/16 06:30 Monocytes % 3.6 % (3.8-10.2) L 06/27/16 06:30 Eosinophils % 0.4 % (0-4.5) 06/27/16 06:30 Basophils % 0.2 % (0-2.0) 06/27/16 06:30 INR 1.37 (0.82-1.09) H 06/27/16 06:30 PTT (Actin FS) 29.4 SECONDS (26.9-34.4) 06/26/16 13:26 Sodium 134 mmol/L (136-145) L 06/27/16 06:30 Potassium 5.7 mmol/L (3.5-5.1) H 06/27/16 06:30 Chloride 97 mmol/L (98-107) L 06/27/16 06:30 Carbon Dioxide 28 mmol/L (21-32) 06/27/16 06:30 Anion Gap 9 (8-16) 06/27/16 06:30 BUN 82 mg/dL (7-18) H 06/27/16 06:30 Creatinine 2.2 mg/dL (0.55-1.02) H 06/27/16 06:30 Creat Clearance w eGFR 21.94 (>60) 06/27/16 06:30 POC Glucometer 131 UNITS (()) 06/26/16 21:10 Random Glucose 116 mg/dL (74-106) H 06/27/16 06:30 Lactic Acid 0.478 mmol/L (0.4-2.0) 06/26/16 13:26 Calcium 8.1 mg/dL (8.5-10.1) L 06/27/16 06:30 Total Bilirubin 0.8 mg/dL (0.2-1.0) D 06/27/16 06:30 AST 11 U/L (15-37) L D 06/27/16 06:30 ALT 10 U/L (12-78) L 06/27/16 06:30 Alkaline Phosphatase 119 U/L (45-117) H 06/27/16 06:30 Creatine Kinase 20 IU/L (26-192) L 06/27/16 06:30 Troponin I 0.02 ng/ml (0.00-0.05) 06/27/16 06:30 Total Protein 6.3 g/dl (6.4-8.2) L 06/27/16 06:30 Albumin 2.0 g/dl (3.4-5.0) L 06/27/16 06:30 Vancomycin Trough 13.699 ug/ml (5.0-10.0) H 06/27/16 06:30 Blood Type O POSITIVE 06/26/16 13:26 Antibody Screen Positive H 06/26/16 13:26 Antibody Identification TNP 06/26/16 13:26 Echo 07/11: mild-mod decr EF--global; nl RV; mild LAE; mild-mod MR/TR; RVSP 30-40 ; small peric effusion; + pleural eff echo 12/06/15: mild lvh. nl lv/rv, Septal motion c/w RV volume overload. Ab diastology. mild cheryl, mild-mod mr, mild as, mod-sev tr, rvsp 50, mod pericardial eff, no tamponade. pleural effusion. echo 12/11/15: focused, Nl lv. trivial pericardial eff. Pleural effusion. EKG 06/27/16: sr, nl intervals, nonspecific tw changes, no sig change prior cxr: clear lungs a/p: 71 yo with h/o HFpEF, CAD s/p CO, HTN, HL, pHTN, MIRIAM, o2 dep't copd, CKD, IDDM, hypothyroid and chronic LLE cellulitis, here with non healing left foot wound/gangrene. chronic foot wound, s/p OR debridement 06/06/16: -now returns with worsening wound, gangrene -plan per vascular surgery/ID chronic HFpEF/pulm HTN/venous ins'y: - 06/2015 with mild-mod dec EF, but most recently with nl LV function on 12/11 echo. - pt with volume overload during mult prior admits here--vol status is always difficult to assess given morbidly obese neck hiding JVD, and chronically very abnormal CXR markings due to overlying soft tissue - currently seems to be at baseline vol status and cr slightly above baseline so would hold off on aggressive diuresis for now - cont po torsemide, can hold if cr continues to rise CAD, h/o NSTEMI: - has previously refused stress tests. h/o NSTEMI x 2 (2012, 2014) in setting of demand (sepsis/anemia) -MATEO deferred previously due to labile creat's--no change; -cath previously deferred due to: pt preference; hi risk of vascular complications (obese habitus), hi risk of BERNARDINO, and h/o recurrent anemia, possible occult GIB - currently without angianal sx's. EKG unchanged. Con't statin, coreg, asa CKD/michael: - cr slightly above baseline so would hold off on aggressive diuresis for now - cont po torsemide, can hold if cr continues to rise anemia: -chronic, baseline runs 8s-9s; -freq acute drops/PRBCs in past; currently near baseline HTN: -controlled -cont same meds
--- NOTE | 2016-06-27 13:45 | CONSULT ---
Consult Consult Specialty:: Nephrology ( drs. Kang/ Anders) Reason for Consultation:: 71 y/o female admitted with severe LE pain, Left foot ulcers, and cellulitis. Has profound anemia...for PRBC transfusion. Has EKG changes suggestive of Ischemia...for Transfer to monitored bed. 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 No: Hemodialysis Heme/Onc: Yes: Anemia Infectious Disease: Yes: MRSA, Other (uti- esbl positive ecoli and klebsiella) Endocrine: Yes: Diabetes Mellitus, Hypothyroidism Dermatology: Yes: Cellulitis (recurrent R leg cellulitis) - Alcohol/Substance Use Hx Alcohol Use: No History of Substance Use: reports: None - Smoking History Smoking history: Never smoked Have you smoked in the past 12 months: No Aproximately how many cigarettes per day: 0 - Social History Usual Living Arrangement: Senior Care ADL: Support Services History of Recent Travel: No Home Medications - Allergies Allergies/Adverse Reactions: Allergies Allergy/AdvReac Type Severity Reaction Status Date / Time Sulfa (Sulfonamide Allergy Unknown Verified 06/26/16 12:46 Antibiotics) [Sulfa(Sulfonamide Antibiotics)] tuberculin, purified protein Allergy Unknown Verified 06/26/16 12:46 deriva [From Tubersol] tuberculin,PPD,multi-puncture Allergy Unknown Verified 06/26/16 12:46 ppd Allergy Unknown Uncoded 06/26/16 12:46 - Home Medications Home Medications: Ambulatory Orders Acetaminophen 650 mg PO Q4H PRN 06/26/16 Albuterol 0.083% Nebulizer Adina [Ventolin 0.083%] 1 neb NEB QID PRN 06/26/16 Aspirin [Aspirin EC] 81 mg PO DAILY 06/26/16 Calcium Acetate 667 mg PO TID 06/26/16 Carvedilol 12.5 mg PO BID 06/26/16 Collagenase Clostridium Hist. [Santyl] 1 applic TP DAILY 06/26/16 Cyanocobalamin [Vitamin B12 -] 1,000 mcg PO DAILY 06/26/16 Epoetin Dawood [Procrit] 10,000 unit IJ WEEKLY 06/26/16 Fluticasone Propionate [Flonase Allergy Relief] 9.9 ml NS DAILY 06/26/16 Folic Acid 1 mg PO DAILY 06/26/16 Gabapentin 300 mg PO HS 06/26/16 Heparin - 5,000 unit SQ BID 06/26/16 Insulin (Levemir) [Levemir Vial] 20 unit SQ DAILY 06/26/16 Insulin Regular [NOVOLIN R VIAL *IVPUSH / ER / ICU Only*] 0 unit SQ QID Isosorbide Mononitrate [Isosorbide Mononitrate ER] 30 mg PO DAILY 06/26/16 Levothyroxine [Synthroid -] 50 mcg PO DAILY 06/26/16 Lidocaine 5% Patch [Lidoderm Patch -] 1 patch TP DAILY 06/26/16 Loratadine 10 mg PO DAILY 06/26/16 Mag Hydrox/Al Hydrox/Simeth [Jigna-Lanta Liquid] 355 ml PO BID 06/26/16 Metoclopramide HCl 5 mg PO TID 06/26/16 Nystatin Cream [Mycostatin] 1 applic TP BID 06/26/16 Oxycodone HCl 5 mg PO Q6H PRN 06/26/16 Polyethylene Glycol 3350 [Purelax] 17 gm PO BID 06/26/16 Sennosides/Docusate Sodium [Senna Laxative Tablet] 2 each PO HS 06/26/16 Simethicone 80 mg PO QID 06/26/16 Simvastatin 40 mg PO HS 06/26/16 Torsemide 20 mg PO DAILY 06/26/16 Family Disease History - Family Disease History Family Disease History: Diabetes: Brother (ESRD on HD), Other: Brother Review of Systems - Review of Systems Constitutional: reports: Malaise, Weakness Neck: reports: No Symptoms Cardiovascular: reports: Chest Pain Respiratory: reports: Hemoptysis Gastrointestinal: reports: Abdominal Pain Musculoskeletal: reports: Back Pain, Extremity Pain Neurological: reports: Weakness Physical Exam Vital Signs: Vital Signs Temperature 98.3 F 06/27/16 10:41 Pulse Rate 69 06/27/16 10:41 Respiratory Rate 20 06/27/16 10:41 Blood Pressure 136/69 06/27/16 10:41 O2 Sat by Pulse Oximetry (%) 97 03/02/17 09:15 Constitutional: Yes: Moderate Distress HENT: Yes: Normocephalic Cardiovascular: Yes: S1, S2, S4 Respiratory: Yes: CTA Bilaterally, SOB Gastrointestinal: Yes: Normal Bowel Sounds, Abdomen, Obese Renal/: No: Bladder Distention Extremities: Yes: Amputation, Deformity, Erythema, Pallor Edema: Yes Edema: LLE: 1+, RLE: 1+ Labs: CBC, BMP 06/27/16 06:30 06/27/16 06:30 Problem List - Problems (1) Acute on chronic renal failure Code(s): N17.9 - ACUTE KIDNEY FAILURE, UNSPECIFIED N18.9 - CHRONIC KIDNEY DISEASE, UNSPECIFIED (2) CO2 retention Code(s): E87.2 - ACIDOSIS (3) Diabetes Code(s): E11.9 - TYPE 2 DIABETES MELLITUS WITHOUT COMPLICATIONS (4) Fluid overload Code(s): E87.70 - FLUID OVERLOAD, UNSPECIFIED (5) Gangrene Code(s): I96 - GANGRENE, NOT ELSEWHERE CLASSIFIED (6) Renal insufficiency Code(s): N28.9 - DISORDER OF KIDNEY AND URETER, UNSPECIFIED (7) Ulcer of foot Code(s): L97.509 - NON-PRESSURE CHRONIC ULCER OTH PRT UNSP FOOT W UNSP SEVERITY Qualifiers: Laterality: left Non-pressure ulcer stage: with fat layer exposed Qualified Code(s): L97.522 - Non-pressure chronic ulcer of other part of left foot with fat layer exposed (8) (HFpEF) heart failure with preserved ejection fraction Code(s): I50.9 - HEART FAILURE, UNSPECIFIED (9) CRISTELA (acute kidney injury) Code(s): N17.9 - ACUTE KIDNEY FAILURE, UNSPECIFIED (10) Acute hyperkalemia Code(s): E87.5 - HYPERKALEMIA (11) Acute renal failure Code(s): N17.9 - ACUTE KIDNEY FAILURE, UNSPECIFIED (12) Anemia Code(s): D64.9 - ANEMIA, UNSPECIFIED Qualifiers: Anemia type: unspecified type Qualified Code(s): D64.9 - Anemia, unspecified (13) CAD (coronary artery disease) Code(s): I25.10 - ATHSCL HEART DISEASE OF [place] CORONARY ARTERY W/O ANG PCTRS Qualifiers: Coronary Disease-Associated Artery/Lesion type: unspecified vessel or lesion type [place] vs. transplanted heart: [place] heart Associated angina: without angina Qualified Code(s): I25.10 - Atherosclerotic heart disease of [place] coronary artery without angina pectoris (14) COPD (chronic obstructive pulmonary disease) Code(s): J44.9 - CHRONIC OBSTRUCTIVE PULMONARY DISEASE, UNSPECIFIED Qualifiers : COPD type: unspecified COPD Qualified Code(s): J44.9 - Chronic obstructive pulmonary disease, unspecified (15) Cellulitis Code(s): L03.90 - CELLULITIS, UNSPECIFIED (16) Cellulitis of leg Code(s): L03.119 - CELLULITIS OF UNSPECIFIED PART OF LIMB (17) HTN (hypertension) Code(s): I10 - ESSENTIAL (PRIMARY) HYPERTENSION Qualifiers: Hypertension type: essential hypertension Qualified Code(s): I10 - Essential (primary) hypertension (18) Hyperkalemia, diminished renal excretion Code(s): E87.5 - HYPERKALEMIA (19) Leg edema Code(s): R60.0 - LOCALIZED EDEMA Qualifiers: Laterality: left Qualified Code(s): R60.0 - Localized edema (20) Morbid obesity Code(s): E66.01 - MORBID (SEVERE) OBESITY DUE TO EXCESS CALORIES Qualifiers: Obesity type: due to excess calories Qualified Code(s): E66.01 - Morbid (severe) obesity due to excess calories (21) SOB (shortness of breath) Code(s): R06.02 - SHORTNESS OF BREATH Assessment/Plan 71 y/o female known to our service admitted with foot ulcer, infection and pain. Has marked Anemia... For PRBC transfusion Has acute elevation of BUN, from baseline. ? Hemodynamic. Need to r/o GI blood loss also. Acute coronary syndrome being ruled out. Tendency for Hyperkalemia. Will give one dose of Kayexelate. Thank you. Will monitor the renal functions with you. Apple Kang MD
--- NOTE | 2016-06-27 14:10 | EKG ---
Test Reason : Blood Pressure : / mmHG Vent. Rate : 068 BPM Atrial Rate : 068 BPM P-R Int : 180 ms QRS Dur : 090 ms QT Int : 426 ms P-R-T Axes : 051 014 125 degrees QTc Int : 452 ms NORMAL SINUS RHYTHM WITH SINUS ARRHYTHMIA LOW VOLTAGE QRS ABNORMAL QRS-T ANGLE, CONSIDER PRIMARY T WAVE ABNORMALITY ABNORMAL ECG WHEN COMPARED WITH ECG OF 26-JUN-2016 12:51, FUSION COMPLEXES ARE NO LONGER PRESENT NONSPECIFIC T WAVE ABNORMALITY, IMPROVED IN LATERAL LEADS Confirmed by DEBORAH JOHNSTON MD ([id number]) on 06/27/2016 2:09:35 PM Referred By: AFIA QUESADA Confirmed By:DEBORAH JOHNSTON MD
[2016-06-27] MEDS: MAG HYDROX/AL HYDROX/SIMETH 30 ML UNIT-DOSE CUP PO SCH ×2 (14:37→21:42)
--- NOTE | 2016-06-27 14:46 | PN ---
Progress Note (short form) - Note Progress Note: Vascular Surgery Cr today at 2.2 Renal on case. Santyl to wound on left foot. Will need angiogram when stable Gaurav Alonso DO
[2016-06-27 14:54] LABS: BASOPHIL 0.3 % (0-2.0); EOSINOPHIL 0.1 % (0-4.5); MCHC 30.9 g/dl (32.0-36.0); MEAN CELL VOLUME 90.7 fl (80-96); MEAN PLT VOLUME 7.6 fl (7.5-11.1); NEUTROPHILS 93.2 % (42.8-82.8); PLATELET COUNT 208 K/MM3 (134-434); RDW 16.4 % (11.6-15.6); WHITE BLOOD COUNT 10.7 K/mm3 (4.0-10.0)
[2016-06-27 15:23] LABS: CALCIUM 8.2 mg/dL (8.5-10.1)
[2016-06-27 15:27] LABS: CREATININE 2.3 mg/dL (0.55-1.02)
--- NOTE | 2016-06-27 15:43 | PN ---
Progress Note (short form) - Note Progress Note: transferred to telemetry for chest pain coffee ground emesis earlier today Vital Signs no chest pain now, c/o left foot pain Period Temp Pulse Resp BP Sys/Hagan Pulse Ox Last 24 Hr 98.2 F-98.6 F 69-80 18-22 133-141/51-69 97-100 +NGT cor-rrr lungs clear abd soft,nt ext +edema +left foot with open ulcer, toe gangrene unchanged, less erythema of the foot CBC, BMP 06/27/16 14:10 06/27/16 14:10 Microbiology 06/26/16 13:26 Blood - Peripheral Venous Blood Culture - Preliminary NO GROWTH OBTAINED AFTER 24 HOURS, INCUBATION TO CONTINUE FOR 4 DAYS. 06/26/16 13:26 Blood - Peripheral Venous Blood Culture - Preliminary NO GROWTH OBTAINED AFTER 24 HOURS, INCUBATION TO CONTINUE FOR 4 DAYS. Laboratory Tests 06/27/16 06:30 Vancomycin Trough 13.699 H Current Medications Acetaminophen (Tylenol -) 325 mg PO Q4H PRN PRN Reason: PAIN Stop: 06/29/16 18:33 Last Admin: 06/27/16 10:41 Dose: 325 mg Al Hydroxide/Mg Hydroxide (Mylanta Oral Suspension -) 30 ml PO BID [facility] Last Admin: 06/27/16 14:37 Dose: Not Given Albuterol Sulfate (Ventolin 0.083% Nebulizer Soln -) 1 amp NEB Q6H PRN PRN Reason: SHORT OF BREATH/WHEEZING Last Admin: 06/27/16 10:00 Dose: 1 amp Aspirin (Ecotrin -) 81 mg PO DAILY [facility] Atorvastatin Calcium (Lipitor -) 20 mg PO HS [facility] Last Admin: 06/26/16 22:27 Dose: 20 mg Carvedilol (Coreg -) 12.5 mg PO BID [facility] Last Admin: 06/27/16 10:36 Dose: Not Given Collagenase (Santyl -) 1 applic TP DAILY [facility] Last Admin: 06/27/16 10:45 Dose: 1 applic Cyanocobalamin (Vitamin B12 -) 1,000 mcg PO DAILY [facility] Last Admin: 06/27/16 10:40 Dose: Not Given Epoetin Dawood (Procrit -) 10,000 unit SQ Q7D [facility] Last Admin: 06/26/16 21:34 Dose: 10,000 unit Ferrous Sulfate (Feosol -) 325 mg PO DAILY@0800 [facility] Last Admin: 06/27/16 09:36 Dose: Not Given Folic Acid (Folic Acid -) 1 mg PO DAILY [facility] Last Admin: 06/27/16 10:37 Dose: Not Given Gabapentin (Neurontin -) 300 mg PO HS [facility] Last Admin: 06/26/16 22:27 Dose: 300 mg Heparin Sodium (Porcine) (Heparin -) 5,000 unit SQ BID [facility] Last Admin: 06/27/16 11:08 Dose: 5,000 unit Sodium Chloride (Normal Saline -) 1,000 mls @ 50 mls/hr IV ASDIR [facility] Stop: 06/27/16 18:28 Last Admin: 06/26/16 19:30 Dose: 50 mls/hr Insulin Aspart (Novolog Vial Sliding Scale -) 1 vial SQ ACHS [facility] PRN Reason: Protocol Last Admin: 06/27/16 11:47 Dose: Not Given Insulin Detemir (Levemir Vial) 20 units SQ DAILY@0700 [facility] Last Admin: 06/27/16 06:38 Dose: Not Given Isosorbide Mononitrate (Imdur -) 30 mg PO DAILY [facility] Last Admin: 06/27/16 10:37 Dose: Not Given Levothyroxine Sodium (Synthroid -) 50 mcg PO DAILY@0700 [facility] Last Admin: 06/27/16 06:39 Dose: Not Given Lidocaine (Lidoderm Patch -) 1 patch TP DAILY [facility] Last Admin: 06/27/16 10:37 Dose: 1 patch Loratadine (Claritin -) 10 mg PO DAILY [facility] Last Admin: 06/27/16 10:36 Dose: Not Given Nystatin (Mycostatin Cream -) 1 applic TP BID [facility] Last Admin: 06/27/16 10:37 Dose: 1 applic Ondansetron HCl (Zofran Injection) 8 mg IVPB Q6H PRN PRN Reason: NAUSEA AND/OR VOMITING Last Admin: 06/27/16 06:46 Dose: 8 mg Oxycodone HCl (Roxicodone -) 5 mg PO Q4H PRN PRN Reason: PAIN LEVEL 6-10 Last Admin: 06/27/16 10:40 Dose: 5 mg Pantoprazole Sodium (Protonix 40mg Ivpb (Pre-Docked)) 40 mg IVPB DAILY [facility] Last Admin: 06/27/16 07:31 Dose: 40 mg Piperacillin Sod/Tazobactam Sod (Zosyn 3.375gm Ivpb (Pre-Docked)) 3.375 gm IVPB Q8H-IV JESÚS PRN Reason: Protocol Last Admin: 06/27/16 11:09 Dose: 3.375 gm Polyethylene Glycol (Miralax (For Daily Use) -) 17 gm PO DAILY [facility] Last Admin: 06/27/16 10:37 Dose: Not Given Senna/Docusate Sodium (Pericolace -) 2 tablet PO HS [facility] Last Admin: 06/26/16 22:27 Dose: 2 tablet Simethicone (Mylicon -) 80 mg PO QID [facility] Last Admin: 06/27/16 14:39 Dose: Not Given Torsemide (Demadex -) 20 mg PO DAILY [facility] Last Admin: 06/27/16 10:36 Dose: Not Given a/p diabetic foot infection gangrene of toe cad coffee ground emesis anemia worsening ckd continue zosyn redose vancomycin blood transfusion today on telemetry for monitoring per cardiology
[2016-06-27] MEDS ORDERED: VANCOMYCIN 1 GRAM (PRE-DOCKED) 1,000 MG/250 ML BAG IVPB ONE ×2 (15:44→19:00)
--- NOTE | 2016-06-27 20:00 | CON.GI ---
Consult Consult Specialty:: GASTROENTEROLOGY Referred by:: AMY REYNOLDS MD Reason for Consultation:: VOMITING - History of Present Illness Chief Complaint: FOOT WOUND History of Present Illness: 71 YEAR OLD FEMALE WITH HISTORY OF POORLY CONTROLLED DIABETES, MORBID OBESITY, ACQUIRED BLINDNESS, CHF,ESRD,COPD, HTN,HLD, CHRONIC ANEMIA (REFUSED COLONOSCOPY ) , CONSTIPATION AND DIABETIC GASTROPARESIS ADMITTED WITH NECROTIC INFECTED FOOT DESPITE ANTIBIOTICS, HYPER BARIC THERAPY AND SURGICAL DEBRIDEMENT AND ONE EPISODE OF COFFEE GROUND EMESIS. SHE HAS NO MELENA. AXR SHOWS A DISTENDED STOMACH AND NORMAL SMALL BOWEL. 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 No: Hemodialysis Infectious Disease: Yes: MRSA, Other (uti- esbl positive ecoli and klebsiella) Endocrine: Yes: Diabetes Mellitus, Hypothyroidism Dermatology: Yes: Cellulitis (recurrent R leg cellulitis) - Alcohol/Substance Use Hx Alcohol Use: No History of Substance Use: reports: None - Smoking History Smoking history: Never smoked Have you smoked in the past 12 months: No Aproximately how many cigarettes per day: 0 - Social History Usual Living Arrangement: [facility] ADL: Support Services History of Recent Travel: No Home Medications - Allergies Allergies/Adverse Reactions: Allergies Allergy/AdvReac Type Severity Reaction Status Date / Time Sulfa (Sulfonamide Allergy Unknown Verified 06/26/16 12:46 Antibiotics) [Sulfa(Sulfonamide Antibiotics)] tuberculin, purified protein Allergy Unknown Verified 06/26/16 12:46 deriva [From Tubersol] tuberculin,PPD,multi-puncture Allergy Unknown Verified 06/26/16 12:46 ppd Allergy Unknown Uncoded 06/26/16 12:46 - Home Medications Home Medications: Ambulatory Orders Acetaminophen 650 mg PO Q4H PRN 06/26/16 Albuterol 0.083% Nebulizer Adina [Ventolin 0.083%] 1 neb NEB QID PRN 06/26/16 Aspirin [Aspirin EC] 81 mg PO DAILY 06/26/16 Calcium Acetate 667 mg PO TID 06/26/16 Carvedilol 12.5 mg PO BID 06/26/16 Collagenase Clostridium Hist. [Santyl] 1 applic TP DAILY 06/26/16 Cyanocobalamin [Vitamin B12 -] 1,000 mcg PO DAILY 06/26/16 Epoetin Dawood [Procrit] 10,000 unit IJ WEEKLY 06/26/16 Fluticasone Propionate [Flonase Allergy Relief] 9.9 ml NS DAILY 06/26/16 Folic Acid 1 mg PO DAILY 06/26/16 Gabapentin 300 mg PO HS 06/26/16 Heparin - 5,000 unit SQ BID 06/26/16 Insulin (Levemir) [Levemir Vial] 20 unit SQ DAILY 06/26/16 Insulin Regular [NOVOLIN R VIAL *IVPUSH / ER / ICU Only*] 0 unit SQ QID Isosorbide Mononitrate [Isosorbide Mononitrate ER] 30 mg PO DAILY 06/26/16 Levothyroxine [Synthroid -] 50 mcg PO DAILY 06/26/16 Lidocaine 5% Patch [Lidoderm Patch -] 1 patch TP DAILY 06/26/16 Loratadine 10 mg PO DAILY 06/26/16 Mag Hydrox/Al Hydrox/Simeth [Jigna-Lanta Liquid] 355 ml PO BID 06/26/16 Metoclopramide HCl 5 mg PO TID 06/26/16 Nystatin Cream [Mycostatin] 1 applic TP BID 06/26/16 Oxycodone HCl 5 mg PO Q6H PRN 06/26/16 Polyethylene Glycol 3350 [Purelax] 17 gm PO BID 06/26/16 Sennosides/Docusate Sodium [Senna Laxative Tablet] 2 each PO HS 06/26/16 Simethicone 80 mg PO QID 06/26/16 Simvastatin 40 mg PO HS 06/26/16 Torsemide 20 mg PO DAILY 06/26/16 Family Disease History - Family Disease History Family Disease History: Diabetes: Brother (ESRD on HD), Other: Brother Review of Systems - Review of Systems Constitutional: reports: Chills Eyes: reports: No Symptoms HENT: reports: No Symptoms Neck: reports: No Symptoms Cardiovascular: reports: No Symptoms Respiratory: reports: No Symptoms Gastrointestinal: reports: Nausea, Vomiting Musculoskeletal: reports: No Symptoms Integumentary: reports: Wound, Other (NECROSIS) Physical Exam-GI Vital Signs: Vital Signs Temperature 98.2 F 06/27/16 18:00 Pulse Rate 68 06/27/16 18:00 Respiratory Rate 22 06/27/16 18:34 Blood Pressure 94/42 06/27/16 18:00 O2 Sat by Pulse Oximetry (%) 97 06/27/16 18:34 Constitutional: Yes: Obese Eyes: Yes: Conjunctiva Clear HENT: Yes: Normocephalic Neck: Yes: Supple Cardiovascular: Yes: Regular Rate and Rhythm Respiratory: Yes: Diminished Gastrointestinal Inspection: Yes: Distention ...Auscultate: Yes: Hypoactive Bowel Sounds ...Palpate: Yes: Soft, Other (OBESE (LIMITED EXAM)) Extremities: Yes: Amputation Labs: CBC, BMP 06/27/16 14:10 06/27/16 14:10 INR, PTT INR 1.37 (0.82-1.09) H 06/27/16 06:30 Laboratory Tests 06/27/16 06/27/16 06/27/16 06:30 06:30 14:10 WBC 10.7 H RBC 2.87 L Hgb 8.0 L Hct 26.0 L MCV 90.7 MCHC 30.9 L RDW 16.4 H Plt Count 208 MPV 7.6 Neutrophils % 93.2 H Lymphocytes % 2.3 L Monocytes % 4.1 Eosinophils % 0.1 Basophils % 0.3 INR 1.37 H Sodium Potassium Chloride Carbon Dioxide Anion Gap BUN Creatinine Random Glucose Calcium Total Bilirubin 0.8 D AST 11 L D ALT 10 L Alkaline Phosphatase 119 H Total Protein 6.3 L Albumin 2.0 L 06/27/16 14:10 WBC RBC Hgb Hct MCV MCHC RDW Plt Count MPV Neutrophils % Lymphocytes % Monocytes % Eosinophils % Basophils % INR Sodium 137 Potassium 5.8 H Chloride 98 Carbon Dioxide 26 Anion Gap 13 BUN 87 H Creatinine 2.3 H Random Glucose 132 H Calcium 8.2 L Total Bilirubin AST ALT Alkaline Phosphatase Total Protein Albumin Imaging - Results X-ray: Image Reviewed Problem List - Problems (1) Diabetic gastroparesis Assessment/Plan: THE CLINICAL SCEANRIO IS ONE OF WORSENING GASTROPARESIS DUE TO INFECTION. THE COFFEE GROUNDS ARE RELATED TO EROSIONS DUE TO THE GASTROPARESIS. AXR SHOWS A DISTENDED STOAMCH AND AN NGT WAS PLACE. REPAT AXR IN AM, FOLLOW I&O OF NGT AND IF XRAY IMPROVED WILL TRY TO D/C NGT TOMORROW OR FRIDAY. THE MAIN THING IS TO CONTROL HER INFECTION AND SUGARS. Code(s): E11.43 - TYPE 2 DIABETES W DIABETIC AUTONOMIC (POLY)NEUROPATHY K31.84 - GASTROPARESIS (2) Acute on chronic renal failure Code(s): N17.9 - ACUTE KIDNEY FAILURE, UNSPECIFIED N18.9 - CHRONIC KIDNEY DISEASE, UNSPECIFIED (3) Diabetes Code(s): E11.9 - TYPE 2 DIABETES MELLITUS WITHOUT COMPLICATIONS (4) Fluid overload Code(s): E87.70 - FLUID OVERLOAD, UNSPECIFIED (5) Gangrene Code(s): I96 - GANGRENE, NOT ELSEWHERE CLASSIFIED (6) Pulmonary hypertension Code(s): I27.2 - OTHER SECONDARY PULMONARY HYPERTENSION (7) Ulcer of foot Code(s): L97.509 - NON-PRESSURE CHRONIC ULCER OTH PRT UNSP FOOT W UNSP SEVERITY Qualifiers: Laterality: left Non-pressure ulcer stage: with fat layer exposed Qualified Code(s): L97.522 - Non-pressure chronic ulcer of other part of left foot with fat layer exposed (8) Anemia Code(s): D64.9 - ANEMIA, UNSPECIFIED Qualifiers: Anemia type: unspecified type Qualified Code(s): D64.9 - Anemia, unspecified (9) CAD (coronary artery disease) Code(s): I25.10 - ATHSCL HEART DISEASE OF [place] CORONARY ARTERY W/O ANG PCTRS Qualifiers: Coronary Disease-Associated Artery/Lesion type: unspecified vessel or lesion type [place] vs. transplanted heart: [place] heart Associated angina: without angina Qualified Code(s): I25.10 - Atherosclerotic heart disease of [place] coronary artery without angina pectoris (10) CHF (congestive heart failure) Code(s): I50.9 - HEART FAILURE, UNSPECIFIED Qualifiers: Congestive heart failure type: unspecified congestive heart failure type Congestive heart failure chronicity: acute on chronic Qualified Code(s): I50.9 - Heart failure, unspecified (11) Constipation Code(s): K59.00 - CONSTIPATION, UNSPECIFIED (12) MIRIAM (obstructive sleep apnea) Code(s): G47.33 - OBSTRUCTIVE SLEEP APNEA (ADULT) (PEDIATRIC) (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
[2016-06-27] MEDS ORDERED: METOCLOPRAMIDE HCL INJECTION 10 MG/2 ML VIAL IVPB ONE (20:08)
--- NOTE | 2016-06-27 21:23 | HP ---
Admitting History and Physical - Primary Care Physician PCP: Amina Wong S - Admission Chief Complaint: L foot wound History of Present Illness: The patient is a 71 year old female with significant past medical history of hypertension, hyperlipidemia, diabetes, CAD, CHF, MIx2, COPD (O2 dependent 2L), and renal insufficiency who presents to the emergency department sent from wound care by Dr. Alonso for further evaluation of a left lower extremity wound. The patient is from [facility] and follows up with Dr. Alonso in wound care. She states that as of 1 week ago the left lower extremity wounds ( superficial skin) were noted to be black then her 3rd toe turned black also. She denies any radiating pain. She denies associated fevers and chills. The patient states [facility]ulatory [facility] the [facility]. The patient was admitted to [facility] and had debridement of the wound with hyperbaric oxygen treatment since discharge. 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 No: Hemodialysis Heme/Onc: Yes: Anemia Infectious Disease: Yes: MRSA, Other (uti- esbl positive ecoli and klebsiella) Endocrine: Yes: Diabetes Mellitus, Hypothyroidism Dermatology: Yes: Cellulitis (recurrent R leg cellulitis) - Smoking History Smoking history: Never smoked Have you smoked in the past 12 months: No Aproximately how many cigarettes per day: 0 - Alcohol/Substance Use Hx Alcohol Use: No History of Substance Use: reports: None - Social History Usual Living Arrangement: Yes: Half-Way ADL: Support Services History of Recent Travel: No Home Medications - Allergies Allergies/Adverse Reactions: Allergies Allergy/AdvReac Type Severity Reaction Status Date / Time Sulfa (Sulfonamide Allergy Unknown Verified 06/26/16 12:46 Antibiotics) [Sulfa(Sulfonamide Antibiotics)] tuberculin, purified protein Allergy Unknown Verified 06/26/16 12:46 deriva [From Tubersol] tuberculin,PPD,multi-puncture Allergy Unknown Verified 06/26/16 12:46 ppd Allergy Unknown Uncoded 06/26/16 12:46 - Home Medications Home Medications: Ambulatory Orders Acetaminophen 650 mg PO Q4H PRN 06/26/16 Albuterol 0.083% Nebulizer Adina [Ventolin 0.083%] 1 neb NEB QID PRN 06/26/16 Aspirin [Aspirin EC] 81 mg PO DAILY 06/26/16 Calcium Acetate 667 mg PO TID 06/26/16 Carvedilol 12.5 mg PO BID 06/26/16 Collagenase Clostridium Hist. [Santyl] 1 applic TP DAILY 06/26/16 Cyanocobalamin [Vitamin B12 -] 1,000 mcg PO DAILY 06/26/16 Epoetin Dawood [Procrit] 10,000 unit IJ WEEKLY 06/26/16 Fluticasone Propionate [Flonase Allergy Relief] 9.9 ml NS DAILY 06/26/16 Folic Acid 1 mg PO DAILY 06/26/16 Gabapentin 300 mg PO HS 06/26/16 Heparin - 5,000 unit SQ BID 06/26/16 Insulin (Levemir) [Levemir Vial] 20 unit SQ DAILY 06/26/16 Insulin Regular [NOVOLIN R VIAL *IVPUSH / ER / ICU Only*] 0 unit SQ QID Isosorbide Mononitrate [Isosorbide Mononitrate ER] 30 mg PO DAILY 06/26/16 Levothyroxine [Synthroid -] 50 mcg PO DAILY 06/26/16 Lidocaine 5% Patch [Lidoderm Patch -] 1 patch TP DAILY 06/26/16 Loratadine 10 mg PO DAILY 06/26/16 Mag Hydrox/Al Hydrox/Simeth [Jigna-Lanta Liquid] 355 ml PO BID 06/26/16 Metoclopramide HCl 5 mg PO TID 06/26/16 Nystatin Cream [Mycostatin] 1 applic TP BID 06/26/16 Oxycodone HCl 5 mg PO Q6H PRN 06/26/16 Polyethylene Glycol 3350 [Purelax] 17 gm PO BID 06/26/16 Sennosides/Docusate Sodium [Senna Laxative Tablet] 2 each PO HS 06/26/16 Simethicone 80 mg PO QID 06/26/16 Simvastatin 40 mg PO HS 06/26/16 Torsemide 20 mg PO DAILY 06/26/16 Family Disease History - Family Disease History Family Disease History: Diabetes: Brother (ESRD on HD), Other: Brother Review of Systems - Review of Systems Constitutional: denies: Chills, Fever Eyes: denies: Recent Change in Vision HENT: denies: Ear Pain Neck: denies: Lumps, Stiffness, Tenderness Cardiovascular: denies: Chest Pain, Shortness of Breath Respiratory: denies: Cough, Hemoptysis Gastrointestinal: reports: Vomiting. denies: Abdominal Pain, Constipation, Diarrhea Genitourinary: denies: Flank Pain, Hematuria Musculoskeletal: reports: Extremity Pain (L foot). denies: Back Pain, Joint Pain Integumentary: reports: Rash Neurological: denies: Change in LOC, Change in Speech, Confusion, Seizure, Syncope Hematology/Lymphatic: denies: Easily Bruised, Excessive Bleeding Psychiatric: denies: Anxiety, Depression, Suicidal Physical Examination Vital Signs: Vital Signs Temperature 98.2 F 06/27/16 18:00 Pulse Rate 68 06/27/16 18:00 Respiratory Rate 22 06/27/16 18:34 Blood Pressure 94/42 06/27/16 18:00 O2 Sat by Pulse Oximetry (%) 97 06/27/16 18:34 Constitutional: No: No Distress, Calm Eyes: Yes: Conjunctiva Clear HENT: Yes: Atraumatic Neck: Yes: Supple Cardiovascular: Yes: Regular Rate and Rhythm Respiratory: Yes: CTA Bilaterally Gastrointestinal: Yes: Soft, Abdomen, Obese. No: Distention, Tenderness Renal/: No: Graf Present, Hematuria Musculoskeletal: No: Joint Stiffness, Joint Swelling Extremities: No: Cold, Cool Edema: Yes Integumentary: Yes: Venous Stasis Changes Wound/Incision: Yes: Dressing Dry and Intact (L foot; L 3rd toe black) Neurological: Yes: WNL, Alert, Oriented ...Motor Strength: WNL (chronic legs paraparesis and bed bound nonambulatory for years) Psychiatric: Yes: WNL, Alert, Oriented. No: Agitated, Suicidal Ideation Labs: CBC, BMP 06/27/16 14:10 06/27/16 14:10 Imaging - Results X-ray: Report Reviewed Other: Report Reviewed Assessment/Plan The patient is a 71 year old female with significant past medical history of hypertension, hyperlipidemia, diabetes, CAD, CHF, MIx2, COPD (O2 dependent 2L), and renal insufficiency who presents to the emergency department sent from wound care by Dr. Alonso for further evaluation of a left lower extremity wound. Nonhealing after ATB and HBO tx. Pt nonambulatory for years. ARF on CRF, anemia Vomited in hospital, initially food then coffee grounds; then had CP; transferred to telemetry, CE and EKG checked, cardio called r.o UGI bleed; NGT inserted; GI called NPO, IVF low dose in prep for leg angiogram; renal called IV ATB per ID; wound care per vascular sx transfuse PRBC f/u labs and culture prognosis guarded pt had expressed in the past wish for DNR DNI aware for significance; wishes onlt comfort care if she is not able to breath. I called pt's sister Patricia left message to call me t time 75 min d/w pt and staff
[2016-06-27] MEDS: ATORVASTATIN CA 20 MG TABLET (FP) PO SCH (21:42)
[2016-06-27] MEDS: SENNOSIDES/DOCUSATE COMBO (SENNA PLUS) TABLET (UD) PO SCH (21:42)
[2016-06-27] MEDS: GABAPENTIN 300 MG CAPSULE (FP) PO SCH (21:42)
[2016-06-27 21:49] LABS: BASOPHIL 0.9 % (0-2.0); EOSINOPHIL 0.3 % (0-4.5); MCH 28.2 pg (25.7-33.7); MCHC 31.2 g/dl (32.0-36.0); MEAN CELL VOLUME 90.2 fl (80-96); MEAN PLT VOLUME 7.7 fl (7.5-11.1); NEUTROPHILS 90.4 % (42.8-82.8); PLATELET COUNT 226 K/MM3 (134-434); RDW 16.7 % (11.6-15.6); WHITE BLOOD COUNT 11.1 K/mm3 (4.0-10.0)
[2016-06-27 22:24] LABS: CALCIUM 8.1 mg/dL (8.5-10.1); CREATININE 2.3 mg/dL (0.55-1.02)
[2016-06-27] MEDS: PANTOPRAZOLE SODIUM 40 MG/100 ML PRE-DOCKED IVPB SCH (23:48)
[2016-06-28] MEDS: PIPERACILLIN/TAZOB 3.375 GM/50 ML PRE-DOCKED IVPB SCH ×3 (02:26→18:24)
[2016-06-28] MEDS: INSULIN DETEMIR 100 UNITS/ML MDV SQ SCH (06:40)
[2016-06-28] MEDS: LEVOTHYROXINE NA 50 MCG TABLET (FP) PO SCH (06:40)
[2016-06-28] MEDS: INSULIN SLIDING SCALE (NOVOLOG) 1 VIAL SQ SCH ×4 (06:40→22:40)
[2016-06-28] MEDS ORDERED: SODIUM POLYSTYRENE SULFONATE 15 GM/60 ML BOTTLE PO ONE (07:00)
[2016-06-28 08:08] LABS: CALCIUM 8.2 mg/dL (8.5-10.1)
[2016-06-28 08:14] LABS: BILIRUBIN,TOTAL 0.8 mg/dL (0.2-1.0); CREATININE 2.5 mg/dL (0.55-1.02); MAGNESIUM 2.2 mg/dL (1.8-2.4); PHOSPHOROUS 5.3 mg/dL (2.5-4.9); TOT PROT 6.3 g/dl (6.4-8.2)
[2016-06-28] MEDS: FERROUS SO4 325 MG TABLET (FP) PO SCH (08:34)
[2016-06-28] MEDS: FOLIC ACID 1 MG TABLET (FP) PO SCH (09:08)
[2016-06-28] MEDS: TORSEMIDE 20 MG TABLET (FP) PO SCH (09:08)
[2016-06-28] MEDS: HEPARIN NA (PORCINE) 5,000 UNITS/ML 1ML VIAL SQ SCH ×2 (09:08→22:24)
[2016-06-28] MEDS: CARVEDILOL 12.5 MG TABLET (FP) PO SCH ×2 (09:08→22:24)
[2016-06-28] MEDS: LORATADINE 10 MG TABLET PO SCH (09:08)
[2016-06-28] MEDS: LIDOCAINE 5% TOPICAL PATCH TP SCH (09:09)
[2016-06-28] MEDS: MAG HYDROX/AL HYDROX/SIMETH 30 ML UNIT-DOSE CUP PO SCH ×2 (09:09→22:25)
[2016-06-28] MEDS: NYSTATIN 100,000 UNIT/GM TOPICAL CREAM 15 GM TUBE TP SCH ×2 (09:09→22:25)
[2016-06-28] MEDS: SIMETHICONE 80 MG TAB.CHEW (FP) PO SCH ×4 (09:09→22:25)
[2016-06-28] MEDS: ISOSORBIDE MONONITRATE 30 MG TAB.SR.24H (FP) PO SCH (09:09)
[2016-06-28] MEDS: POLYETHYLENE GLYCOL 3350 119 GM BTL PO SCH (09:09)
[2016-06-28] MEDS: CYANOCOBALAMIN 1,000 MCG TABLET (FP) PO SCH (09:10)
[2016-06-28] MEDS: COLLAGENASE CLOSTRIDIUM HIST. 30 GRAMS TUBE TP SCH (09:10)
[2016-06-28] MEDS: PANTOPRAZOLE SODIUM 40 MG/100 ML PRE-DOCKED IVPB SCH ×2 (09:10→22:25)
--- NOTE | 2016-06-28 10:20 | PN ---
Progress Note, Physician Chief Complaint: afebrile; no CP/SOB but had some epigastric discomfort L foot pain on/off NGT in per GI - Current Medication List Current Medications: Active Medications Acetaminophen (Tylenol -) 325 mg PO Q4H PRN PRN Reason: PAIN Stop: 06/29/16 18:33 Last Admin: 06/27/16 10:41 Dose: 325 mg Al Hydroxide/Mg Hydroxide (Mylanta Oral Suspension -) 30 ml PO BID [facility] Last Admin: 06/28/16 09:09 Dose: Not Given Albuterol Sulfate (Ventolin 0.083% Nebulizer Soln -) 1 amp NEB Q6H PRN PRN Reason: SHORT OF BREATH/WHEEZING Last Admin: 06/27/16 22:15 Dose: 1 amp Aspirin (Ecotrin -) 81 mg PO DAILY [facility] Atorvastatin Calcium (Lipitor -) 20 mg PO HS [facility] Last Admin: 06/27/16 21:42 Dose: Not Given Carvedilol (Coreg -) 12.5 mg PO BID [facility] Last Admin: 06/28/16 09:08 Dose: Not Given Collagenase (Santyl -) 1 applic TP DAILY [facility] Last Admin: 06/28/16 09:10 Dose: 1 applic Cyanocobalamin (Vitamin B12 -) 1,000 mcg PO DAILY [facility] Last Admin: 06/28/16 09:10 Dose: Not Given Epoetin Dawood (Procrit -) 10,000 unit SQ Q7D [facility] Last Admin: 06/26/16 21:34 Dose: 10,000 unit Ferrous Sulfate (Feosol -) 325 mg PO DAILY@0800 [facility] Last Admin: 06/28/16 08:34 Dose: Not Given Folic Acid (Folic Acid -) 1 mg PO DAILY [facility] Last Admin: 06/28/16 09:08 Dose: Not Given Gabapentin (Neurontin -) 300 mg PO HS [facility] Last Admin: 06/27/16 21:42 Dose: Not Given Heparin Sodium (Porcine) (Heparin -) 5,000 unit SQ BID [facility] Last Admin: 06/28/16 09:08 Dose: 5,000 unit Insulin Aspart (Novolog Vial Sliding Scale -) 1 vial SQ ACHS [facility] PRN Reason: Protocol Last Admin: 06/28/16 06:40 Dose: Not Given Insulin Detemir (Levemir Vial) 20 units SQ DAILY@0700 [facility] Last Admin: 06/28/16 06:40 Dose: Not Given Isosorbide Mononitrate (Imdur -) 30 mg PO DAILY [facility] Last Admin: 06/28/16 09:09 Dose: Not Given Levothyroxine Sodium (Synthroid -) 50 mcg PO DAILY@0700 [facility] Last Admin: 06/28/16 06:40 Dose: Not Given Lidocaine (Lidoderm Patch -) 1 patch TP DAILY [facility] Last Admin: 06/28/16 09:09 Dose: 1 patch Loratadine (Claritin -) 10 mg PO DAILY [facility] Last Admin: 06/28/16 09:08 Dose: Not Given Nystatin (Mycostatin Cream -) 1 applic TP BID [facility] Last Admin: 06/28/16 09:09 Dose: 1 applic Ondansetron HCl (Zofran Injection) 8 mg IVPB Q6H PRN PRN Reason: NAUSEA AND/OR VOMITING Last Admin: 06/27/16 06:46 Dose: 8 mg Oxycodone HCl (Roxicodone -) 5 mg PO Q4H PRN PRN Reason: PAIN LEVEL 6-10 Last Admin: 06/27/16 10:40 Dose: 5 mg Pantoprazole Sodium (Protonix 40mg Ivpb (Pre-Docked)) 40 mg IVPB BID [facility] Last Admin: 06/28/16 09:10 Dose: 40 mg Piperacillin Sod/Tazobactam Sod (Zosyn 3.375gm Ivpb (Pre-Docked)) 3.375 gm IVPB Q8H-IV [facility] PRN Reason: Protocol Last Admin: 06/28/16 09:08 Dose: 3.375 gm Polyethylene Glycol (Miralax (For Daily Use) -) 17 gm PO DAILY [facility] Last Admin: 06/28/16 09:09 Dose: Not Given Senna/Docusate Sodium (Pericolace -) 2 tablet PO HS [facility] Last Admin: 06/27/16 21:42 Dose: Not Given Simethicone (Mylicon -) 80 mg PO QID [facility] Last Admin: 06/28/16 09:09 Dose: Not Given - Objective Vital Signs: Vital Signs Temperature 97.9 F 06/28/16 06:00 Pulse Rate 60 06/28/16 06:00 Respiratory Rate 19 06/28/16 06:00 Blood Pressure 121/45 06/28/16 06:00 O2 Sat by Pulse Oximetry (%) 95 06/28/16 06:00 Constitutional: Yes: No Distress Eyes: Yes: Conjunctiva Clear HENT: Yes: Atraumatic Neck: Yes: Supple Cardiovascular: Yes: Regular Rate and Rhythm Respiratory: Yes: Diminished Gastrointestinal: Yes: Soft, Abdomen, Obese. No: Distention, Tenderness Genitourinary: No: Hematuria Musculoskeletal: No: Joint Stiffness, Joint Swelling Extremities: No: Cold, Cool Edema: Yes Integumentary: Yes: Rash, Venous Stasis Changes Wound/Incision: Yes: Dressing Dry and Intact (L foot) Neurological: Yes: Alert, Oriented ...Motor Strength: WNL (functional quadriparesis, bedbound) Psychiatric: Yes: Alert, Oriented. No: Suicidal Ideation Labs: CBC, BMP 06/27/16 21:30 06/28/16 05:35 INR, PTT INR 1.37 (0.82-1.09) H 06/27/16 06:30 - ....Imaging Other: Report Reviewed Assessment/Plan The patient is a 71 year old female with significant past medical history of hypertension, hyperlipidemia, diabetes, CAD, CHF, MIx2, COPD (O2 dependent 2L), and renal insufficiency who presents to the emergency department sent from wound care by Dr. Alonso for further evaluation of a left lower extremity wound. Nonhealing after ATB and HBO tx. Pt nonambulatory for years. ARF on CRF, anemia Vomited in hospital, initially food then coffee grounds; then had CP; monitor in telemetry, CE and EKG f/u, cardio f/u r.o UGI bleed; NGT inserted; GI f/u d/w dr Calhoun NPO, IVF low dose in prep for leg angiogram; renal f/u IV ATB per ID; wound care per vascular sx; d/w pt she might need amputation s/p transfusion PRBC f/u labs and culture prognosis guarded pt had expressed in the past wish for DNR DNI aware for significance; wishes onlt comfort care if she is not able to breath. I called pt's sister Patricia again left message to call me; also called palliative care svc for HCP advanced directives, goals of care t time 40 min d/w pt and staff
[2016-06-28] MEDS: ALBUTEROL SO4 0.083% IH SOL 2.5 MG/3 ML VIAL.NEB. NEB PRN (10:25)
--- NOTE | 2016-06-28 10:49 | PN ---
Progress Note (short form) - Note Progress Note: NAD still with ngt Vital Signs Period Temp Pulse Resp BP Sys/Hagan Pulse Ox Last 24 Hr 97.7 F-98.7 F 60-72 19-22 94-136/42-58 95-98 cor-rrr lungs decreased bs at bases abd soft, ext left foot less erythema, gangrene of toe unchanged, open ulcers with necrosis CBC, BMP 06/27/16 21:30 06/28/16 05:35 Laboratory Tests 06/27/16 06/28/16 06:30 05:35 Vancomycin Trough 13.699 H Random Vancomycin 20.560 Current Medications Acetaminophen (Tylenol -) 325 mg PO Q4H PRN PRN Reason: PAIN Stop: 06/29/16 18:33 Last Admin: 06/27/16 10:41 Dose: 325 mg Al Hydroxide/Mg Hydroxide (Mylanta Oral Suspension -) 30 ml PO BID [facility] Last Admin: 06/28/16 09:09 Dose: Not Given Albuterol Sulfate (Ventolin 0.083% Nebulizer Soln -) 1 amp NEB Q6H PRN PRN Reason: SHORT OF BREATH/WHEEZING Last Admin: 06/28/16 10:25 Dose: 1 amp Aspirin (Ecotrin -) 81 mg PO DAILY [facility] Atorvastatin Calcium (Lipitor -) 20 mg PO HS [facility] Last Admin: 06/27/16 21:42 Dose: Not Given Carvedilol (Coreg -) 12.5 mg PO BID [facility] Last Admin: 06/28/16 09:08 Dose: Not Given Collagenase (Santyl -) 1 applic TP DAILY [facility] Last Admin: 06/28/16 09:10 Dose: 1 applic Cyanocobalamin (Vitamin B12 -) 1,000 mcg PO DAILY [facility] Last Admin: 06/28/16 09:10 Dose: Not Given Epoetin Dawood (Procrit -) 10,000 unit SQ Q7D [facility] Last Admin: 06/26/16 21:34 Dose: 10,000 unit Ferrous Sulfate (Feosol -) 325 mg PO DAILY@0800 [facility] Last Admin: 06/28/16 08:34 Dose: Not Given Folic Acid (Folic Acid -) 1 mg PO DAILY [facility] Last Admin: 06/28/16 09:08 Dose: Not Given Gabapentin (Neurontin -) 300 mg PO HS [facility] Last Admin: 06/27/16 21:42 Dose: Not Given Heparin Sodium (Porcine) (Heparin -) 5,000 unit SQ BID [facility] Last Admin: 06/28/16 09:08 Dose: 5,000 unit Insulin Aspart (Novolog Vial Sliding Scale -) 1 vial SQ ACHS [facility] PRN Reason: Protocol Last Admin: 06/28/16 06:40 Dose: Not Given Insulin Detemir (Levemir Vial) 20 units SQ DAILY@0700 [facility] Last Admin: 06/28/16 06:40 Dose: Not Given Isosorbide Mononitrate (Imdur -) 30 mg PO DAILY [facility] Last Admin: 06/28/16 09:09 Dose: Not Given Levothyroxine Sodium (Synthroid -) 50 mcg PO DAILY@0700 [facility] Last Admin: 06/28/16 06:40 Dose: Not Given Lidocaine (Lidoderm Patch -) 1 patch TP DAILY [facility] Last Admin: 06/28/16 09:09 Dose: 1 patch Loratadine (Claritin -) 10 mg PO DAILY [facility] Last Admin: 06/28/16 09:08 Dose: Not Given Nystatin (Mycostatin Cream -) 1 applic TP BID [facility] Last Admin: 06/28/16 09:09 Dose: 1 applic Ondansetron HCl (Zofran Injection) 8 mg IVPB Q6H PRN PRN Reason: NAUSEA AND/OR VOMITING Last Admin: 06/27/16 06:46 Dose: 8 mg Oxycodone HCl (Roxicodone -) 5 mg PO Q4H PRN PRN Reason: PAIN LEVEL 6-10 Last Admin: 06/27/16 10:40 Dose: 5 mg Pantoprazole Sodium (Protonix 40mg Ivpb (Pre-Docked)) 40 mg IVPB BID [facility] Last Admin: 06/28/16 09:10 Dose: 40 mg Piperacillin Sod/Tazobactam Sod (Zosyn 3.375gm Ivpb (Pre-Docked)) 3.375 gm IVPB Q8H-IV [facility] PRN Reason: Protocol Last Admin: 06/28/16 09:08 Dose: 3.375 gm Polyethylene Glycol (Miralax (For Daily Use) -) 17 gm PO DAILY [facility] Last Admin: 06/28/16 09:09 Dose: Not Given Senna/Docusate Sodium (Pericolace -) 2 tablet PO HS [facility] Last Admin: 06/27/16 21:42 Dose: Not Given Simethicone (Mylicon -) 80 mg PO QID [facility] Last Admin: 06/28/16 09:09 Dose: Not Given a/p diabetic foot infection gangrene of toe cad coffee ground emesis anemia worsening ckd continue zosyn vancomycin by levels check level in am surgical f/u of foot on telemetry for monitoring per cardiology
--- NOTE | 2016-06-28 11:26 | PN ---
Progress Note (short form) - Note Progress Note: s: no cp palps dizzy sob; +heartburn/gassy sensation in chest and abd o: Vital Signs Period Temp Pulse Resp BP Sys/Hagan Pulse Ox Last 24 Hr 97.7 F-98.7 F 60-72 19-22 94-136/42-58 95-98 NAD, calm, obese, jvd tds RRR nl s1, s2 2/6 murmur at sternal border and apex scattered rhonchi bl, poor effort abd nt diminished distal pulses trace-1+ le edema erythema/venous stasis changes/skin excoriations and [place] changes of LE skin alert awake appropriate no jaundice diaphoresis Current Medications Generic Name Dose Route Start Last Admin Trade Name Freq PRN Reason Stop Dose Admin Acetaminophen 325 mg 06/26/16 18:34 06/27/16 10:41 Tylenol - PO 06/29/16 18:33 325 mg Q4H PRN Administration PAIN Al Hydroxide/Mg Hydroxide 30 ml 06/26/16 22:00 06/28/16 09:09 Mylanta Oral Suspension - PO Not Given BID [facility] Albuterol Sulfate 1 amp 06/26/16 18:17 06/28/16 10:25 Ventolin 0.083% Nebulizer Soln - NEB 1 amp Q6H PRN Administration SHORT OF BREATH/WHEEZING Aspirin 81 mg 06/27/16 10:00 Ecotrin - PO DAILY [facility] Atorvastatin Calcium 20 mg 06/26/16 22:00 06/27/16 21:42 Lipitor - PO Not Given HS [facility] Carvedilol 12.5 mg 06/26/16 22:00 06/28/16 09:08 Coreg - PO Not Given BID [facility] Collagenase 1 applic 06/26/16 16:00 06/28/16 09:10 Santyl - TP 1 applic DAILY [facility] Administration Cyanocobalamin 1,000 mcg 06/27/16 10:00 06/28/16 09:10 Vitamin B12 - PO Not Given DAILY [facility] Epoetin Dawood 10,000 unit 06/26/16 19:00 06/26/16 21:34 Procrit - SQ 10,000 unit Q7D [facility] Administration Ferrous Sulfate 325 mg 06/27/16 08:00 06/28/16 08:34 Feosol - PO Not Given DAILY@0800 [facility] Folic Acid 1 mg 06/27/16 10:00 06/28/16 09:08 Folic Acid - PO Not Given DAILY [facility] Gabapentin 300 mg 06/26/16 22:00 06/27/16 21:42 Neurontin - PO Not Given HS [facility] Heparin Sodium (Porcine) 5,000 unit 06/26/16 22:00 06/28/16 09:08 Heparin - SQ 5,000 unit BID [facility] Administration Insulin Aspart 1 vial 06/26/16 22:00 06/28/16 06:40 Novolog Vial Sliding Scale - SQ Not Given ACHS [facility] Protocol Insulin Detemir 20 units 06/27/16 07:00 06/28/16 06:40 Levemir Vial SQ Not Given DAILY@0700 [facility] Isosorbide Mononitrate 30 mg 06/27/16 10:00 06/28/16 09:09 Imdur - PO Not Given DAILY [facility] Levothyroxine Sodium 50 mcg 06/27/16 07:00 06/28/16 06:40 Synthroid - PO Not Given DAILY@0700 [facility] Lidocaine 1 patch 06/27/16 10:00 06/28/16 09:09 Lidoderm Patch - TP 1 patch DAILY [facility] Administration Loratadine 10 mg 06/27/16 10:00 06/28/16 09:08 Claritin - PO Not Given DAILY [facility] Nystatin 1 applic 06/26/16 22:00 06/28/16 09:09 Mycostatin Cream - TP 1 applic BID [facility] Administration Ondansetron HCl 8 mg 06/26/16 22:03 06/27/16 06:46 Zofran Injection IVPB 8 mg Q6H PRN Administration NAUSEA AND/OR VOMITING Oxycodone HCl 5 mg 06/26/16 18:34 06/27/16 10:40 Roxicodone - PO 5 mg Q4H PRN Administration PAIN LEVEL 6-10 Pantoprazole Sodium 40 mg 06/27/16 22:00 06/28/16 09:10 Protonix 40mg Ivpb (Pre-Docked) IVPB 40 mg BID [facility] Administration Piperacillin Sod/Tazobactam Sod 3.375 gm 06/26/16 18:00 06/28/16 09:08 Zosyn 3.375gm Ivpb (Pre-Docked) IVPB 3.375 gm Q8H-IV [facility] Administration Protocol Polyethylene Glycol 17 gm 06/27/16 10:00 06/28/16 09:09 Miralax (For Daily Use) - PO Not Given DAILY [facility] Senna/Docusate Sodium 2 tablet 06/26/16 22:00 06/27/16 21:42 Pericolace - PO Not Given HS [facility] Simethicone 80 mg 06/26/16 22:00 06/28/16 09:09 Mylicon - PO Not Given QID [facility] CBC, BMP 06/27/16 21:30 06/28/16 05:35 Echo 07/11: mild-mod decr EF--global; nl RV; mild LAE; mild-mod MR/TR; RVSP 30-40 ; small peric effusion; + pleural eff echo 12/06/15: mild lvh. nl lv/rv, Septal motion c/w RV volume overload. Ab diastology. mild cheryl, mild-mod mr, mild as, mod-sev tr, rvsp 50, mod pericardial eff, no tamponade. pleural effusion. echo 12/11/15: focused, Nl lv. trivial pericardial eff. Pleural effusion. EKG 06/27/16: sr, nl intervals, nonspecific tw changes, no sig change prior cxr: clear lungs tele: sr a/p: 71 yo with h/o HFpEF, CAD s/p NC, HTN, HL, pHTN, MIRIAM, o2 dep't copd, CKD, IDDM, hypothyroid and chronic LLE cellulitis, here with non healing left foot wound/gangrene. chronic foot wound, s/p OR debridement 06/06/16: -now returns with worsening wound, gangrene -plan per vascular surgery/ID chronic HFpEF/pulm HTN/venous ins'y: - 06/2015 with mild-mod dec EF, but most recently with nl LV function on 12/11 echo. - pt with volume overload during mult prior admits here--vol status is always difficult to assess given morbidly obese neck hiding JVD, and chronically very abnormal CXR markings due to overlying soft tissue - currently seems to be at baseline vol status and cr slightly above baseline and rising with torsemide so would hold off on aggressive diuresis for now and will hold home torsemide 20 po qd and monitor cr trend CAD, h/o NSTEMI: - has previously refused stress tests. h/o NSTEMI x 2 (2012, 2014) in setting of demand (sepsis/anemia) -MATEO deferred previously due to labile creat's--no change; -cath previously deferred due to: pt preference; hi risk of vascular complications (obese habitus), hi risk of BERNARDINO, and h/o recurrent anemia, possible occult GIB - currently without angianal sx's. EKG unchanged. Con't statin, coreg, asa, imdur CKD/michael: - cr slightly above baseline and rising with diuretic so will hold torsemide for now and monitor trend anemia: -chronic, baseline runs 8s-9s; -freq acute drops/PRBCs in past; currently near baseline HTN: -controlled -cont same meds gastroparesis: -s/p ngt -GI following
--- NOTE | 2016-06-28 12:36 | PN ---
Progress Note (short form) - Note Progress Note: Renal follow up for CRISTELA on CKD Pt seen and examined at the bedside reports abd discomfort has NGT on wall suction denies any chest pain, sob Vital Signs Temperature 98.2 F 06/28/16 10:00 Pulse Rate 64 06/28/16 10:00 Respiratory Rate 19 06/28/16 10:00 Blood Pressure 119/78 06/28/16 10:00 O2 Sat by Pulse Oximetry (%) 95 06/28/16 10:00 Intake & Output 06/25/16 06/26/16 06/27/16 06/28/16 23:59 23:59 23:59 23:59 Intake Total 150 650 960 Output Total 200 100 Balance -50 650 860 Weight 309 lb 6 oz 297 lb 3 oz 300 lb 8 oz Gen: NAD, NGT in place CVS: RRR, No M/R Lungs: CTA, No rales or wheeze Abd: soft, Obese, mild tenderness, + distension Ext: No edema, clubbing or cyanosis : No bladder distension CBC, BMP 06/27/16 21:30 06/28/16 05:35 Laboratory Tests 06/28/16 05:35 Calcium 8.2 L Phosphorus 5.3 H Albumin 2.0 L Current Medications Acetaminophen (Tylenol -) 325 mg PO Q4H PRN PRN Reason: PAIN Stop: 06/29/16 18:33 Last Admin: 06/27/16 10:41 Dose: 325 mg Al Hydroxide/Mg Hydroxide (Mylanta Oral Suspension -) 30 ml PO BID [facility] Last Admin: 06/28/16 09:09 Dose: Not Given Albuterol Sulfate (Ventolin 0.083% Nebulizer Soln -) 1 amp NEB Q6H PRN PRN Reason: SHORT OF BREATH/WHEEZING Last Admin: 06/28/16 10:25 Dose: 1 amp Aspirin (Ecotrin -) 81 mg PO DAILY [facility] Atorvastatin Calcium (Lipitor -) 20 mg PO HS [facility] Last Admin: 06/27/16 21:42 Dose: Not Given Carvedilol (Coreg -) 12.5 mg PO BID [facility] Last Admin: 06/28/16 09:08 Dose: Not Given Collagenase (Santyl -) 1 applic TP DAILY [facility] Last Admin: 06/28/16 09:10 Dose: 1 applic Cyanocobalamin (Vitamin B12 -) 1,000 mcg PO DAILY [facility] Last Admin: 06/28/16 09:10 Dose: Not Given Epoetin Dawood (Procrit -) 10,000 unit SQ Q7D [facility] Last Admin: 06/26/16 21:34 Dose: 10,000 unit Ferrous Sulfate (Feosol -) 325 mg PO DAILY@0800 [facility] Last Admin: 06/28/16 08:34 Dose: Not Given Folic Acid (Folic Acid -) 1 mg PO DAILY [facility] Last Admin: 06/28/16 09:08 Dose: Not Given Gabapentin (Neurontin -) 300 mg PO HS [facility] Last Admin: 06/27/16 21:42 Dose: Not Given Heparin Sodium (Porcine) (Heparin -) 5,000 unit SQ BID [facility] Last Admin: 06/28/16 09:08 Dose: 5,000 unit Insulin Aspart (Novolog Vial Sliding Scale -) 1 vial SQ ACHS [facility] PRN Reason: Protocol Last Admin: 06/28/16 11:30 Dose: Not Given Insulin Detemir (Levemir Vial) 20 units SQ DAILY@0700 [facility] Last Admin: 06/28/16 06:40 Dose: Not Given Isosorbide Mononitrate (Imdur -) 30 mg PO DAILY [facility] Last Admin: 06/28/16 09:09 Dose: Not Given Levothyroxine Sodium (Synthroid -) 50 mcg PO DAILY@0700 [facility] Last Admin: 06/28/16 06:40 Dose: Not Given Lidocaine (Lidoderm Patch -) 1 patch TP DAILY [facility] Last Admin: 06/28/16 09:09 Dose: 1 patch Loratadine (Claritin -) 10 mg PO DAILY [facility] Last Admin: 06/28/16 09:08 Dose: Not Given Nystatin (Mycostatin Cream -) 1 applic TP BID [facility] Last Admin: 06/28/16 09:09 Dose: 1 applic Ondansetron HCl (Zofran Injection) 8 mg IVPB Q6H PRN PRN Reason: NAUSEA AND/OR VOMITING Last Admin: 06/27/16 06:46 Dose: 8 mg Oxycodone HCl (Roxicodone -) 5 mg PO Q4H PRN PRN Reason: PAIN LEVEL 6-10 Last Admin: 06/27/16 10:40 Dose: 5 mg Pantoprazole Sodium (Protonix 40mg Ivpb (Pre-Docked)) 40 mg IVPB BID [facility] Last Admin: 06/28/16 09:10 Dose: 40 mg Piperacillin Sod/Tazobactam Sod (Zosyn 3.375gm Ivpb (Pre-Docked)) 3.375 gm IVPB Q8H-IV [facility] PRN Reason: Protocol Last Admin: 06/28/16 09:08 Dose: 3.375 gm Polyethylene Glycol (Miralax (For Daily Use) -) 17 gm PO DAILY [facility] Last Admin: 06/28/16 09:09 Dose: Not Given Senna/Docusate Sodium (Pericolace -) 2 tablet PO HS [facility] Last Admin: 06/27/16 21:42 Dose: Not Given Simethicone (Mylicon -) 80 mg PO QID [facility] Last Admin: 06/28/16 09:09 Dose: Not Given A/p 71 year old Woman with PMhx of CKD, CHF, Morbid Obesity, IDDM, Anemia who presented with worsening LE wounds and found to have CIRSTELA with BUN/Cr of 90/2.5. #CRISTELA on CKD Renal function worsening during the admission likely etiology renal hypoperfusion in setting of anemia and cellultiis caution with IVF given chronic volume overload currently holding diuretics trend BUN/Cr keep MAP>65 avoid contrast, nsaids, MATEO/ARB #LE wound/Cellulitis continue Abx as per ID Vascular following #Anemia continue LAILA Q weekly check iron studies Thank you Lambert Mcnamara
[2016-06-28 15:15] LABS: BASOPHIL 0.8 % (0-2.0); EOSINOPHIL 0.5 % (0-4.5); MCH 28.3 pg (25.7-33.7); MCHC 31.3 g/dl (32.0-36.0); MEAN CELL VOLUME 90.3 fl (80-96); NEUTROPHILS 88.8 % (42.8-82.8); PLATELET COUNT 238 K/MM3 (134-434); RDW 16.8 % (11.6-15.6); WHITE BLOOD COUNT 12.5 K/mm3 (4.0-10.0)
--- NOTE | 2016-06-28 16:00 | CON.PULM ---
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 No: Hemodialysis Infectious Disease: Yes: MRSA, Other (uti- esbl positive ecoli and klebsiella) Endocrine: Yes: Diabetes Mellitus, Hypothyroidism Dermatology: Yes: Cellulitis (recurrent R leg cellulitis) - Alcohol/Substance Use Hx Alcohol Use: No History of Substance Use: reports: None - Smoking History Smoking history: Never smoked Have you smoked in the past 12 months: No Aproximately how many cigarettes per day: 0 - Social History Usual Living Arrangement: [facility] ADL: Support Services History of Recent Travel: No Home Medications - Allergies Allergies/Adverse Reactions: Allergies Allergy/AdvReac Type Severity Reaction Status Date / Time Sulfa (Sulfonamide Allergy Unknown Verified 06/26/16 12:46 Antibiotics) [Sulfa(Sulfonamide Antibiotics)] tuberculin, purified protein Allergy Unknown Verified 06/26/16 12:46 deriva [From Tubersol] tuberculin,PPD,multi-puncture Allergy Unknown Verified 06/26/16 12:46 ppd Allergy Unknown Uncoded 06/26/16 12:46 - Home Medications Home Medications: Ambulatory Orders Acetaminophen 650 mg PO Q4H PRN 06/26/16 Albuterol 0.083% Nebulizer Adina [Ventolin 0.083%] 1 neb NEB QID PRN 06/26/16 Aspirin [Aspirin EC] 81 mg PO DAILY 06/26/16 Calcium Acetate 667 mg PO TID 06/26/16 Carvedilol 12.5 mg PO BID 06/26/16 Collagenase Clostridium Hist. [Santyl] 1 applic TP DAILY 06/26/16 Cyanocobalamin [Vitamin B12 -] 1,000 mcg PO DAILY 06/26/16 Epoetin Dawood [Procrit] 10,000 unit IJ WEEKLY 06/26/16 Fluticasone Propionate [Flonase Allergy Relief] 9.9 ml NS DAILY 06/26/16 Folic Acid 1 mg PO DAILY 06/26/16 Gabapentin 300 mg PO HS 06/26/16 Heparin - 5,000 unit SQ BID 06/26/16 Insulin (Levemir) [Levemir Vial] 20 unit SQ DAILY 06/26/16 Insulin Regular [NOVOLIN R VIAL *IVPUSH / ER / ICU Only*] 0 unit SQ QID Isosorbide Mononitrate [Isosorbide Mononitrate ER] 30 mg PO DAILY 06/26/16 Levothyroxine [Synthroid -] 50 mcg PO DAILY 06/26/16 Lidocaine 5% Patch [Lidoderm Patch -] 1 patch TP DAILY 06/26/16 Loratadine 10 mg PO DAILY 06/26/16 Mag Hydrox/Al Hydrox/Simeth [Jigna-Lanta Liquid] 355 ml PO BID 06/26/16 Metoclopramide HCl 5 mg PO TID 06/26/16 Nystatin Cream [Mycostatin] 1 applic TP BID 06/26/16 Oxycodone HCl 5 mg PO Q6H PRN 06/26/16 Polyethylene Glycol 3350 [Purelax] 17 gm PO BID 06/26/16 Sennosides/Docusate Sodium [Senna Laxative Tablet] 2 each PO HS 06/26/16 Simethicone 80 mg PO QID 06/26/16 Simvastatin 40 mg PO HS 06/26/16 Torsemide 20 mg PO DAILY 06/26/16 Family Disease History - Family Disease History Family Disease History: Diabetes: Brother (ESRD on HD), Other: Brother Review of Systems Unable to obtain ROS, reason: UNABLE TO OBTAIN Physical Exam Vital Sings: Vital Signs Temperature 98.2 F 06/28/16 10:00 Pulse Rate 59 L 06/28/16 14:07 Respiratory Rate 20 06/28/16 14:00 Blood Pressure 109/51 06/28/16 14:00 O2 Sat by Pulse Oximetry (%) 99 06/28/16 14:07 Constitutional: Yes: Anxious Eyes: Yes: EOM Intact HENT: Yes: Normocephalic Neck: Yes: Trachea Midline Cardiovascular: Yes: S1, S2 Respiratory: Yes: Diminished (BIBASILAR) Gastrointestinal: Yes: Abdomen, Obese Edema: Yes Neurological: Yes: Alert Labs: CBC, BMP 06/28/16 14:20 06/28/16 05:35 REST REVIEWED Imaging - Results Chest X-ray: Report Reviewed EKG: Report Reviewed Problem List - Problems (1) Acute on chronic renal failure Code(s): N17.9 - ACUTE KIDNEY FAILURE, UNSPECIFIED N18.9 - CHRONIC KIDNEY DISEASE, UNSPECIFIED (2) CO2 retention Code(s): E87.2 - ACIDOSIS (3) Diabetes Code(s): E11.9 - TYPE 2 DIABETES MELLITUS WITHOUT COMPLICATIONS (4) Fluid overload Code(s): E87.70 - FLUID OVERLOAD, UNSPECIFIED (5) Gangrene Code(s): I96 - GANGRENE, NOT ELSEWHERE CLASSIFIED Assessment/Plan AGREE WITH BRONCHODILATION/O2 SUPPLEMENTATION/ DVT PROPHYLAXSIS/MAY NEED NIVPPV PATIENT LIKELY HAS [facility] WILL REQUEST ABG WILL FOLLOW THANK YOU Jarad BURTON MD
--- NOTE | 2016-06-28 16:01 | CONSULT ---
Consultation: REQUESTING PROVIDER: CONSULT REQUEST: We have been asked to medically evaluate this patient for increased need for O2. HISTORY OF PRESENT ILLNESS: This is a 71 year old female [facility] resident, with a PMH of COPD (O2 dependant 2L), CAD, CHF, VT x2, HTN, HLD, renal insufficiency, DM, who presents to the emergency department from wound care due to worsening condition of left lower extremity wound. Followed by Dr. Alonso. She states that recently she had cold likle symptoms with increased cough and mucus production. She denies associated fevers and chills. She has required more O2 (3L). She reports nausea and chest pain when swallowing. She is a poor historian. [facility] REVIEW OF SYSTEMS: CONSTITUTIONAL: Absent: fever, chills HEENT: Absent: rhinorrhea, nasal congestion CARDIOVASCULAR: Absent: syncope, palpitations RESPIRATORY: Absent: wheezing, stridor, hemoptysis GASTROINTESTINAL: Absent: abdominal pain, abdominal distension GENITOURINARY: Absent: dysuria MUSCULOSKELETAL: Absent: myalgia, arthralgia SKIN: Absent: rash HEMATOLOGIC/IMMUNOLOGIC: Absent: easy bleeding, easy bruising ENDOCRINE: Absent: heat intolerance, cold intolerance NEUROLOGIC: Absent: headache, focal weakness or paresthesias PSYCHIATRIC: Absent: anxiety, depression PHYSICAL EXAMINATION Vital Signs - 24 hr 06/27/16 06/27/16 06/27/16 18:00 18:34 21:00 Temperature 98.2 F Pulse Rate 68 Respiratory 22 22 Rate Blood Pressure 94/42 O2 Sat by Pulse 97 98 Oximetry (%) 06/27/16 06/28/16 06/28/16 22:00 02:00 06:00 Temperature 98.7 F 97.7 F 97.9 F Pulse Rate 68 68 60 Respiratory 20 20 19 Rate Blood Pressure 113/58 136/58 121/45 O2 Sat by Pulse 95 Oximetry (%) 06/28/16 06/28/16 06/28/16 10:00 14:00 14:07 Temperature 98.2 F Pulse Rate 64 60 59 L Respiratory 19 20 Rate Blood Pressure 119/78 109/51 O2 Sat by Pulse 95 99 Oximetry (%) GENERAL: Awake, alert, and fully oriented, in no acute distress. HEAD: Normal with no signs of trauma. EYES: Pupils equal, round and reactive to light, extraocular movements intact, sclera anicteric, conjunctiva clear. EARS, NOSE, THROAT: Moist mucous membranes. NG tube in place, bilious drainage NECK: supple without masses. LUNGS: reduced breath sounds at bases b/l HEART: Regular rate and rhythm, normal S1 and S2 ABDOMEN: Soft, nontender, not distended, normoactive bowel sounds, no guarding, no rebound, no masses. No hepatomegaly or splenomegaly. MUSCULOSKELETAL: Normal range of motion at all joints. No bony deformities or tenderness. No CVA tenderness. UPPER EXTREMITIES: 2+ pulses, No cyanosis LOWER EXTREMITIES: L foot, gangrenous toe and exposed tendon NEUROLOGICAL: Cranial nerves II-XII grossly intact. Normal speech. PSYCHIATRIC: Cooperative. Good eye contact SKIN: Warm, dry, Laboratory Results - last 24 hr 06/26/16 06/26/16 06/27/16 13:26 13:26 18:37 WBC RBC Hgb Hct MCV MCHC RDW Plt Count MPV Neutrophils % Lymphocytes % Monocytes % Eosinophils % Basophils % Sodium Potassium Chloride Carbon Dioxide Anion Gap BUN Creatinine Creat Clearance w eGFR POC Glucometer 133 Random Glucose Lactic Acid 0.478 Calcium Phosphorus Magnesium Total Bilirubin AST ALT Alkaline Phosphatase Total Protein Albumin Random Vancomycin Blood Type O POSITIVE Antibody Screen Positive H Antibody Identification TNP Crossmatch See Detail 06/27/16 06/27/16 06/27/16 21:30 21:30 21:39 WBC 11.1 H RBC 3.04 L Hgb 8.6 L Hct 27.5 L MCV 90.2 MCHC 31.2 L RDW 16.7 H Plt Count 226 MPV 7.7 Neutrophils % 90.4 H Lymphocytes % 3.0 L D Monocytes % 5.4 Eosinophils % 0.3 D Basophils % 0.9 Sodium 136 Potassium 5.8 H Chloride 99 Carbon Dioxide 29 Anion Gap 8 BUN 89 H Creatinine 2.3 H Creat Clearance w eGFR POC Glucometer 140 Random Glucose 138 H Lactic Acid Calcium 8.1 L Phosphorus Magnesium Total Bilirubin AST ALT Alkaline Phosphatase Total Protein Albumin Random Vancomycin Blood Type Antibody Screen Antibody Identification Crossmatch 06/28/16 06/28/16 06/28/16 05:35 05:35 06:37 WBC RBC Hgb Hct MCV MCHC RDW Plt Count MPV Neutrophils % Lymphocytes % Monocytes % Eosinophils % Basophils % Sodium 135 L Potassium 5.9 H Chloride 96 L Carbon Dioxide 27 Anion Gap 12 BUN 90 H Creatinine 2.5 H Creat Clearance w eGFR 18.93 POC Glucometer 151 Random Glucose 133 H Lactic Acid Calcium 8.2 L Phosphorus 5.3 H Magnesium 2.2 Total Bilirubin 0.8 AST 9 L ALT 11 L Alkaline Phosphatase 103 Total Protein 6.3 L Albumin 2.0 L Random Vancomycin 20.560 Blood Type Antibody Screen Antibody Identification Crossmatch 06/28/16 06/28/16 13:09 14:20 WBC 12.5 H RBC 3.13 L Hgb 8.8 L Hct 28.2 L MCV 90.3 MCHC 31.3 L RDW 16.8 H Plt Count 238 MPV 8.0 Neutrophils % 88.8 H Lymphocytes % 3.3 L Monocytes % 6.6 Eosinophils % 0.5 Basophils % 0.8 Sodium Potassium Chloride Carbon Dioxide Anion Gap BUN Creatinine Creat Clearance w eGFR POC Glucometer 150 Random Glucose Lactic Acid Calcium Phosphorus Magnesium Total Bilirubin AST ALT Alkaline Phosphatase Total Protein Albumin Random Vancomycin Blood Type Antibody Screen Antibody Identification Crossmatch Active Medications Generic Name Dose Route Start Last Admin Trade Name Freq PRN Reason Stop Dose Admin Acetaminophen 325 mg 06/26/16 18:34 06/27/16 10:41 Tylenol - PO 06/29/16 18:33 325 mg Q4H PRN Administration PAIN Al Hydroxide/Mg Hydroxide 30 ml 06/26/16 22:00 06/28/16 09:09 Mylanta Oral Suspension - PO Not Given BID [facility] Albuterol Sulfate 1 amp 06/26/16 18:17 06/28/16 10:25 Ventolin 0.083% Nebulizer Soln - NEB 1 amp Q6H PRN Administration SHORT OF BREATH/WHEEZING Aspirin 81 mg 06/27/16 10:00 Ecotrin - PO DAILY [facility] Atorvastatin Calcium 20 mg 06/26/16 22:00 06/27/16 21:42 Lipitor - PO Not Given HS [facility] Carvedilol 12.5 mg 06/26/16 22:00 06/28/16 09:08 Coreg - PO Not Given BID [facility] Collagenase 1 applic 06/26/16 16:00 06/28/16 09:10 Santyl - TP 1 applic DAILY [facility] Administration Cyanocobalamin 1,000 mcg 06/27/16 10:00 06/28/16 09:10 Vitamin B12 - PO Not Given DAILY [facility] Epoetin Dawood 10,000 unit 06/26/16 19:00 06/26/16 21:34 Procrit - SQ 10,000 unit Q7D [facility] Administration Ferrous Sulfate 325 mg 06/27/16 08:00 06/28/16 08:34 Feosol - PO Not Given DAILY@0800 [facility] Folic Acid 1 mg 06/27/16 10:00 06/28/16 09:08 Folic Acid - PO Not Given DAILY [facility] Gabapentin 300 mg 06/26/16 22:00 06/27/16 21:42 Neurontin - PO Not Given HS [facility] Heparin Sodium (Porcine) 5,000 unit 06/26/16 22:00 06/28/16 09:08 Heparin - SQ 5,000 unit BID [facility] Administration Insulin Aspart 1 vial 06/26/16 22:00 06/28/16 11:30 Novolog Vial Sliding Scale - SQ Not Given ACHS [facility] Protocol Insulin Detemir 20 units 06/27/16 07:00 06/28/16 06:40 Levemir Vial SQ Not Given DAILY@0700 [facility] Isosorbide Mononitrate 30 mg 06/27/16 10:00 06/28/16 09:09 Imdur - PO Not Given DAILY [facility] Levothyroxine Sodium 50 mcg 06/27/16 07:00 06/28/16 06:40 Synthroid - PO Not Given DAILY@0700 [facility] Lidocaine 1 patch 06/27/16 10:00 06/28/16 09:09 Lidoderm Patch - TP 1 patch DAILY [facility] Administration Loratadine 10 mg 06/27/16 10:00 06/28/16 09:08 Claritin - PO Not Given DAILY [facility] Nystatin 1 applic 06/26/16 22:00 06/28/16 09:09 Mycostatin Cream - TP 1 applic BID [facility] Administration Ondansetron HCl 8 mg 06/26/16 22:03 06/27/16 06:46 Zofran Injection IVPB 8 mg Q6H PRN Administration NAUSEA AND/OR VOMITING Oxycodone HCl 5 mg 06/26/16 18:34 06/27/16 10:40 Roxicodone - PO 5 mg Q4H PRN Administration PAIN LEVEL 6-10 Pantoprazole Sodium 40 mg 06/27/16 22:00 06/28/16 09:10 Protonix 40mg Ivpb (Pre-Docked) IVPB 40 mg BID [facility] Administration Piperacillin Sod/Tazobactam Sod 3.375 gm 06/26/16 18:00 06/28/16 09:08 Zosyn 3.375gm Ivpb (Pre-Docked) IVPB 3.375 gm Q8H-IV [facility] Administration Protocol Polyethylene Glycol 17 gm 06/27/16 10:00 06/28/16 09:09 Miralax (For Daily Use) - PO Not Given DAILY [facility] Senna/Docusate Sodium 2 tablet 06/26/16 22:00 06/27/16 21:42 Pericolace - PO Not Given HS [facility] Simethicone 80 mg 06/26/16 22:00 06/28/16 14:30 Mylicon - PO Not Given QID [facility] ASSESSMENT/PLAN: This is a 71 year old female [facility] resident, with a PMH of COPD (O2 dependant 2L), CAD, CHF, VT x2, HTN, HLD, renal insufficiency, DM COPD -possible superimposed URI -CXR poor quality, requires repeat -albuterol -NC O2 3L -outpatient sleep study Diabetic foot infection -gangrene of toe -ID: ken mojica -vascular f/u DM -levemir, novolog [place] emesis -PPI IV -NGT -GI consult CRISTELA -acute on chronic (CKD) -renal consult Dispo: We will continue to follow the patient. Thank you for this consultative opportunity. Problem List - Problems (1) CO2 retention Code(s): E87.2 - ACIDOSIS (2) Diabetes Code(s): E11.9 - TYPE 2 DIABETES MELLITUS WITHOUT COMPLICATIONS (3) Gangrene Code(s): I96 - GANGRENE, NOT ELSEWHERE CLASSIFIED (4) CRISTELA (acute kidney injury) Code(s): N17.9 - ACUTE KIDNEY FAILURE, UNSPECIFIED (5) COPD (chronic obstructive pulmonary disease) Code(s): J44.9 - CHRONIC OBSTRUCTIVE PULMONARY DISEASE, UNSPECIFIED Qualifiers : COPD type: unspecified COPD Qualified Code(s): J44.9 - Chronic obstructive pulmonary disease, unspecified (6) Cellulitis Code(s): L03.90 - CELLULITIS, UNSPECIFIED (7) Diastolic CHF Code(s): I50.30 - UNSPECIFIED DIASTOLIC (CONGESTIVE) HEART FAILURE Qualifiers : Congestive heart failure chronicity: acute on chronic Qualified Code(s) : I50.33 - Acute on chronic diastolic (congestive) heart failure Visit type - Emergency Visit Emergency Visit: Yes ED Registration Date: 06/26/16 Care time: The patient presented to the Emergency Department on the above date and was hospitalized for further evaluation of their emergent condition. - New Patient This patient is new to me today: Yes Date on this admission: 06/28/16 - Critical Care Critical Care patient: No
[2016-06-28] MEDS ORDERED: SODIUM POLYSTYRENE SULFONATE 15 GM/60 ML BOTTLE ONE (18:28)
[2016-06-28] MEDS ORDERED: SODIUM POLYSTYRENE SULFONATE 15 GM/60 ML BOTTLE GT ONE (18:45)
--- NOTE | 2016-06-28 18:59 | PN ---
GI Progress Note Subjective: GASTROENTEROLOGY NO NAUSEA OR VOMITING MINIMAL DRAINAGE FROM NGT AXR NO GASTRIC DISTENSION - Objective Vital Signs: Vital Signs Temperature 98.2 F 06/28/16 18:00 Pulse Rate 65 06/28/16 18:00 Respiratory Rate 20 06/28/16 18:00 Blood Pressure 109/50 06/28/16 18:00 O2 Sat by Pulse Oximetry (%) 99 06/28/16 14:07 Constitutional: Calm HENT: Yes: Normocephalic Cardiovascular: Yes: Regular Rate and Rhythm Respiratory: Yes: Regular ...Auscultate: Yes: Normoactive Bowel Sounds ...Palpate: Yes: Soft Extremities: Yes: Amputation, Other (DRESSING) Labs: CBC, BMP 06/28/16 14:20 INR, PTT INR 1.37 (0.82-1.09) H 06/27/16 06:30 Laboratory Tests 06/27/16 06/28/16 06/28/16 06:30 05:35 14:20 WBC 12.5 H RBC 3.13 L Hgb 8.8 L Hct 28.2 L MCV 90.3 MCHC 31.3 L RDW 16.8 H Plt Count 238 MPV 8.0 Neutrophils % 88.8 H Lymphocytes % 3.3 L INR 1.37 H Sodium 135 L Potassium 5.9 H Chloride 96 L Carbon Dioxide 27 Anion Gap 12 BUN 90 H Creatinine 2.5 H Random Glucose 133 H Calcium 8.2 L Phosphorus 5.3 H Magnesium 2.2 Total Bilirubin 0.8 AST 9 L ALT 11 L Alkaline Phosphatase 103 Total Protein 6.3 L Albumin 2.0 L Problem List - Problems (1) Diabetic gastroparesis Assessment/Plan: IMPROVED CLAMP NGT AXR IN AM IF NO GASTRIC DISTENSION D/C NGT START CLEARS WITH REGLAN IVPB ONCE OR TWICE A DAY DR ROWLAND WILL SEE PATIENT TOMORROW GILDA PANDYA MD Code(s): E11.43 - TYPE 2 DIABETES W DIABETIC AUTONOMIC (POLY)NEUROPATHY K31.84 - GASTROPARESIS (2) Acute on chronic renal failure Code(s): N17.9 - ACUTE KIDNEY FAILURE, UNSPECIFIED N18.9 - CHRONIC KIDNEY DISEASE, UNSPECIFIED (3) Diabetes Code(s): E11.9 - TYPE 2 DIABETES MELLITUS WITHOUT COMPLICATIONS (4) Fluid overload Code(s): E87.70 - FLUID OVERLOAD, UNSPECIFIED (5) Gangrene Code(s): I96 - GANGRENE, NOT ELSEWHERE CLASSIFIED (6) Pulmonary hypertension Code(s): I27.2 - OTHER SECONDARY PULMONARY HYPERTENSION (7) Ulcer of foot Code(s): L97.509 - NON-PRESSURE CHRONIC ULCER OTH PRT UNSP FOOT W UNSP SEVERITY Qualifiers: Laterality: left Non-pressure ulcer stage: with fat layer exposed Qualified Code(s): L97.522 - Non-pressure chronic ulcer of other part of left foot with fat layer exposed (8) Anemia Code(s): D64.9 - ANEMIA, UNSPECIFIED Qualifiers: Anemia type: unspecified type Qualified Code(s): D64.9 - Anemia, unspecified (9) CAD (coronary artery disease) Code(s): I25.10 - ATHSCL HEART DISEASE OF [place] CORONARY ARTERY W/O ANG PCTRS Qualifiers: Coronary Disease-Associated Artery/Lesion type: unspecified vessel or lesion type [place] vs. transplanted heart: [place] heart Associated angina: without angina Qualified Code(s): I25.10 - Atherosclerotic heart disease of [place] coronary artery without angina pectoris (10) CHF (congestive heart failure) Code(s): I50.9 - HEART FAILURE, UNSPECIFIED Qualifiers: Congestive heart failure type: unspecified congestive heart failure type Congestive heart failure chronicity: acute on chronic Qualified Code(s): I50.9 - Heart failure, unspecified (11) Constipation Code(s): K59.00 - CONSTIPATION, UNSPECIFIED (12) MIRIAM (obstructive sleep apnea) Code(s): G47.33 - OBSTRUCTIVE SLEEP APNEA (ADULT) (PEDIATRIC) (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
[2016-06-28 19:56] LABS: CALCIUM 8.3 mg/dL (8.5-10.1); CREATININE 2.7 mg/dL (0.55-1.02)
[2016-06-28] MEDS: ATORVASTATIN CA 20 MG TABLET (FP) PO SCH (22:24)
[2016-06-28] MEDS: SENNOSIDES/DOCUSATE COMBO (SENNA PLUS) TABLET (UD) PO SCH (22:25)
[2016-06-28] MEDS: GABAPENTIN 300 MG CAPSULE (FP) PO SCH (22:25)
[2016-06-29] MEDS: PIPERACILLIN/TAZOB 3.375 GM/50 ML PRE-DOCKED IVPB SCH ×3 (02:13→17:02)
[2016-06-29] MEDS: INSULIN SLIDING SCALE (NOVOLOG) 1 VIAL SQ SCH ×4 (05:59→23:22)
[2016-06-29] MEDS: LEVOTHYROXINE NA 50 MCG TABLET (FP) PO SCH (05:59)
[2016-06-29] MEDS: INSULIN DETEMIR 100 UNITS/ML MDV SQ SCH (05:59)
[2016-06-29 08:24] LABS: BASOPHIL 0.5 % (0-2.0); EOSINOPHIL 1.6 % (0-4.5); MCHC 30.9 g/dl (32.0-36.0); MEAN CELL VOLUME 90.7 fl (80-96); MEAN PLT VOLUME 8.2 fl (7.5-11.1); NEUTROPHILS 84.3 % (42.8-82.8); PLATELET COUNT 227 K/MM3 (134-434); RDW 16.9 % (11.6-15.6)
[2016-06-29] MEDS: FERROUS SO4 325 MG TABLET (FP) PO SCH (08:28)
[2016-06-29 08:37] LABS: MAGNESIUM 2.2 mg/dL (1.8-2.4); PHOSPHOROUS 5.7 mg/dL (2.5-4.9)
[2016-06-29 08:46] LABS: ALBUMIN 2.1 g/dl (3.4-5.0); CREATININE 2.8 mg/dL (0.55-1.02)
[2016-06-29 08:56] LABS: BILIRUBIN,TOTAL 0.6 mg/dL (0.2-1.0); THYROID STIMULATING HORMONE 13.3 uIU/ml (0.358-3.74); TOT PROT 6.4 g/dl (6.4-8.2)
[2016-06-29] MEDS: PANTOPRAZOLE SODIUM 40 MG/100 ML PRE-DOCKED IVPB SCH ×2 (09:48→23:23)
[2016-06-29] MEDS: LIDOCAINE 5% TOPICAL PATCH TP SCH (09:49)
[2016-06-29] MEDS: SIMETHICONE 80 MG TAB.CHEW (FP) PO SCH ×4 (09:50→23:22)
[2016-06-29] MEDS: HEPARIN NA (PORCINE) 5,000 UNITS/ML 1ML VIAL SQ SCH ×2 (09:50→23:22)
[2016-06-29] MEDS: CARVEDILOL 12.5 MG TABLET (FP) PO SCH (09:50)
[2016-06-29] MEDS: MAG HYDROX/AL HYDROX/SIMETH 30 ML UNIT-DOSE CUP PO SCH ×2 (09:50→23:22)
[2016-06-29] MEDS: FOLIC ACID 1 MG TABLET (FP) PO SCH (09:50)
[2016-06-29] MEDS: ISOSORBIDE MONONITRATE 30 MG TAB.SR.24H (FP) PO SCH (09:50)
[2016-06-29] MEDS: CYANOCOBALAMIN 1,000 MCG TABLET (FP) PO SCH (09:50)
[2016-06-29] MEDS: LORATADINE 10 MG TABLET PO SCH (09:50)
[2016-06-29] MEDS: POLYETHYLENE GLYCOL 3350 119 GM BTL PO SCH (09:51)
[2016-06-29] MEDS: NYSTATIN 100,000 UNIT/GM TOPICAL CREAM 15 GM TUBE TP SCH ×2 (09:52→23:22)
[2016-06-29] MEDS: COLLAGENASE CLOSTRIDIUM HIST. 30 GRAMS TUBE TP SCH (09:54)
--- NOTE | 2016-06-29 10:24 | PN ---
Progress Note, Physician Chief Complaint: increasing creatinine; off lasix; s/p PRBC and s/p 1 L IVF; seen by renal NGT in; draining; no CP/SOB but still with epigastric discomfort; d/w pt her condition, treatment and prognosis; she seems axox3 fully understands it and able to answer and ask appropriate questions; she agrees with current plan. L foot pain; will ordered INJ pain meds, d/w staff difficult to give percocet through NGT called sister Patricia at pt's request to discuss her condition and plan; left message again; I also called the other sister Guerline in [place] but her number is wrong (I checked with Marvin CASTRO) - Current Medication List Current Medications: Active Medications Acetaminophen (Tylenol -) 325 mg PO Q4H PRN PRN Reason: PAIN Stop: 06/29/16 18:33 Last Admin: 06/27/16 10:41 Dose: 325 mg Al Hydroxide/Mg Hydroxide (Mylanta Oral Suspension -) 30 ml PO BID [facility] Last Admin: 06/29/16 09:50 Dose: 30 ml Albuterol Sulfate (Ventolin 0.083% Nebulizer Soln -) 1 amp NEB Q6H PRN PRN Reason: SHORT OF BREATH/WHEEZING Last Admin: 06/28/16 10:25 Dose: 1 amp Aspirin (Ecotrin -) 81 mg PO DAILY [facility] Atorvastatin Calcium (Lipitor -) 20 mg PO HS [facility] Last Admin: 06/28/16 22:24 Dose: Not Given Carvedilol (Coreg -) 12.5 mg PO BID [facility] Last Admin: 06/29/16 09:50 Dose: 12.5 mg Collagenase (Santyl -) 1 applic TP DAILY [facility] Last Admin: 06/29/16 09:54 Dose: 1 applic Cyanocobalamin (Vitamin B12 -) 1,000 mcg PO DAILY [facility] Last Admin: 06/29/16 09:50 Dose: 1,000 mcg Epoetin Dawood (Procrit -) 10,000 unit SQ Q7D [facility] Last Admin: 06/26/16 21:34 Dose: 10,000 unit Heparin Sodium (Porcine) (Heparin -) 5,000 unit SQ BID [facility] Last Admin: 06/29/16 09:50 Dose: 5,000 unit Insulin Aspart (Novolog Vial Sliding Scale -) 1 vial SQ ACHS [facility] PRN Reason: Protocol Last Admin: 06/29/16 05:59 Dose: Not Given Insulin Detemir (Levemir Vial) 20 units SQ DAILY@0700 [facility] Last Admin: 06/29/16 05:59 Dose: Not Given Isosorbide Mononitrate (Imdur -) 30 mg PO DAILY [facility] Last Admin: 06/29/16 09:50 Dose: 30 mg Levothyroxine Sodium (Synthroid -) 50 mcg PO DAILY@0700 [facility] Last Admin: 06/29/16 05:59 Dose: Not Given Lidocaine (Lidoderm Patch -) 1 patch TP DAILY [facility] Last Admin: 06/29/16 09:49 Dose: 1 patch Nystatin (Mycostatin Cream -) 1 applic TP BID [facility] Last Admin: 06/29/16 09:52 Dose: 1 applic Ondansetron HCl (Zofran Injection) 8 mg IVPB Q6H PRN PRN Reason: NAUSEA AND/OR VOMITING Last Admin: 06/27/16 06:46 Dose: 8 mg Oxycodone HCl (Roxicodone -) 5 mg PO Q4H PRN PRN Reason: PAIN LEVEL 6-10 Last Admin: 06/27/16 10:40 Dose: 5 mg Pantoprazole Sodium (Protonix 40mg Ivpb (Pre-Docked)) 40 mg IVPB BID [facility] Last Admin: 06/29/16 09:48 Dose: 40 mg Piperacillin Sod/Tazobactam Sod (Zosyn 3.375gm Ivpb (Pre-Docked)) 3.375 gm IVPB Q8H-IV [facility] PRN Reason: Protocol Last Admin: 06/29/16 09:48 Dose: 3.375 gm Polyethylene Glycol (Miralax (For Daily Use) -) 17 gm PO DAILY [facility] Last Admin: 06/29/16 09:51 Dose: 17 grams Senna/Docusate Sodium (Pericolace -) 2 tablet PO HS [facility] Last Admin: 06/28/16 22:25 Dose: Not Given Simethicone (Mylicon -) 80 mg PO QID [facility] Last Admin: 06/29/16 09:50 Dose: 80 mg - Objective Vital Signs: Vital Signs Temperature 98.2 F 06/29/16 08:49 Pulse Rate 68 06/29/16 08:49 Respiratory Rate 18 06/29/16 09:00 Blood Pressure 130/53 06/29/16 08:49 O2 Sat by Pulse Oximetry (%) 100 06/29/16 09:00 Constitutional: Yes: Anxious Eyes: Yes: Conjunctiva Clear HENT: Yes: Atraumatic Neck: Yes: Supple Cardiovascular: Yes: Regular Rate and Rhythm Respiratory: Yes: Diminished Gastrointestinal: Yes: Soft, Abdomen, Obese. No: Distention, Tenderness Genitourinary: No: Hematuria Musculoskeletal: No: Joint Stiffness, Joint Swelling Extremities: No: Cold, Cool Edema: Yes Wound/Incision: Yes: Dressing Dry and Intact (L foot covered) Neurological: Yes: Alert, Oriented ...Motor Strength: WNL (functional quadriplegia bedbound) Psychiatric: Yes: Alert, Oriented. No: Agitated, Suicidal Ideation Labs: CBC, BMP 06/29/16 05:40 06/29/16 05:40 INR, PTT INR 1.37 (0.82-1.09) H 06/27/16 06:30 - ....Imaging Other: Report Reviewed Assessment/Plan The patient is a 71 year old female with significant past medical history of hypertension, hyperlipidemia, diabetes, CAD, CHF, MIx2, COPD (O2 dependent 2L), and renal insufficiency who presents to the emergency department sent from wound care by Dr. Alonso for further evaluation of a left lower extremity wound. Nonhealing after ATB and HBO tx. Pt nonambulatory for years. ARF on CRF, anemia, r/o GIB monitor in telemetry, cardio f/u NGT inserted; GI f/u NPO, s/p PRBC and IVF; renal f/u IV ATB per ID; wound care per vascular sx; d/w pt she might need amputation gastric DVT aspiration PFX pain meds IM or IV f/u labs and culture prognosis guarded pt had expressed again wish for DNR DNI, aware of consequences and significance ; she wishes only comfort care if she would not able to breath. I called pt's sister Patricia again left message to call me; also called palliative care svc for HCP advanced directives, goals of care d/w pt and staff
[2016-06-29] MEDS ORDERED: morphine CARPU-JECT 2 MG/1 ML DISP.SYRIN IM PRN (10:27)
--- NOTE | 2016-06-29 10:28 | PN ---
Progress Note, Physician History of Present Illness: PULMONARY AWAKE,WEAK,-RESP DISTRESS,+NGT DRAINAGE - Current Medication List Current Medications: Active Medications Acetaminophen (Tylenol -) 325 mg PO Q4H PRN PRN Reason: PAIN Stop: 06/29/16 18:33 Last Admin: 06/27/16 10:41 Dose: 325 mg Al Hydroxide/Mg Hydroxide (Mylanta Oral Suspension -) 30 ml PO BID [facility] Last Admin: 06/29/16 09:50 Dose: 30 ml Albuterol Sulfate (Ventolin 0.083% Nebulizer Soln -) 1 amp NEB Q6H PRN PRN Reason: SHORT OF BREATH/WHEEZING Last Admin: 06/28/16 10:25 Dose: 1 amp Aspirin (Ecotrin -) 81 mg PO DAILY [facility] Atorvastatin Calcium (Lipitor -) 20 mg PO HS [facility] Last Admin: 06/28/16 22:24 Dose: Not Given Carvedilol (Coreg -) 12.5 mg PO BID [facility] Last Admin: 06/29/16 09:50 Dose: 12.5 mg Collagenase (Santyl -) 1 applic TP DAILY [facility] Last Admin: 06/29/16 09:54 Dose: 1 applic Cyanocobalamin (Vitamin B12 -) 1,000 mcg PO DAILY [facility] Last Admin: 06/29/16 09:50 Dose: 1,000 mcg Epoetin Dawood (Procrit -) 10,000 unit SQ Q7D [facility] Last Admin: 06/26/16 21:34 Dose: 10,000 unit Heparin Sodium (Porcine) (Heparin -) 5,000 unit SQ BID [facility] Last Admin: 06/29/16 09:50 Dose: 5,000 unit Insulin Aspart (Novolog Vial Sliding Scale -) 1 vial SQ ACHS [facility] PRN Reason: Protocol Last Admin: 06/29/16 05:59 Dose: Not Given Insulin Detemir (Levemir Vial) 20 units SQ DAILY@0700 [facility] Last Admin: 06/29/16 05:59 Dose: Not Given Isosorbide Mononitrate (Imdur -) 30 mg PO DAILY [facility] Last Admin: 06/29/16 09:50 Dose: 30 mg Levothyroxine Sodium (Synthroid -) 50 mcg PO DAILY@0700 [facility] Last Admin: 06/29/16 05:59 Dose: Not Given Lidocaine (Lidoderm Patch -) 1 patch TP DAILY [facility] Last Admin: 06/29/16 09:49 Dose: 1 patch Nystatin (Mycostatin Cream -) 1 applic TP BID [facility] Last Admin: 06/29/16 09:52 Dose: 1 applic Ondansetron HCl (Zofran Injection) 8 mg IVPB Q6H PRN PRN Reason: NAUSEA AND/OR VOMITING Last Admin: 06/27/16 06:46 Dose: 8 mg Oxycodone HCl (Roxicodone -) 5 mg PO Q4H PRN PRN Reason: PAIN LEVEL 6-10 Last Admin: 06/27/16 10:40 Dose: 5 mg Pantoprazole Sodium (Protonix 40mg Ivpb (Pre-Docked)) 40 mg IVPB BID [facility] Last Admin: 06/29/16 09:48 Dose: 40 mg Piperacillin Sod/Tazobactam Sod (Zosyn 3.375gm Ivpb (Pre-Docked)) 3.375 gm IVPB Q8H-IV [facility] PRN Reason: Protocol Last Admin: 06/29/16 09:48 Dose: 3.375 gm Polyethylene Glycol (Miralax (For Daily Use) -) 17 gm PO DAILY [facility] Last Admin: 06/29/16 09:51 Dose: 17 grams Senna/Docusate Sodium (Pericolace -) 2 tablet PO HS [facility] Last Admin: 06/28/16 22:25 Dose: Not Given Simethicone (Mylicon -) 80 mg PO QID [facility] Last Admin: 06/29/16 09:50 Dose: 80 mg - Objective Vital Signs: Vital Signs Temperature 98.2 F 06/29/16 08:49 Pulse Rate 68 06/29/16 08:49 Respiratory Rate 18 06/29/16 09:00 Blood Pressure 130/53 06/29/16 08:49 O2 Sat by Pulse Oximetry (%) 100 06/29/16 09:00 Constitutional: Yes: Calm, Obese Eyes: Yes: WNL HENT: Yes: WNL Neck: Yes: WNL Cardiovascular: Yes: Regular Rate and Rhythm, S1, S2 Respiratory: Yes: Diminished Gastrointestinal: Yes: Normal Bowel Sounds, Soft Extremities: Yes: Erythema Edema: Yes Labs: CBC, BMP 06/29/16 05:40 06/29/16 05:40 INR, PTT INR 1.37 (0.82-1.09) H 06/27/16 06:30 Assessment/Plan Problem List - Problems (1) Acute on chronic renal failure Code(s): N17.9 - ACUTE KIDNEY FAILURE, UNSPECIFIED N18.9 - CHRONIC KIDNEY DISEASE, UNSPECIFIED (2) CO2 retention Code(s): E87.2 - ACIDOSIS (3) Diabetes Code(s): E11.9 - TYPE 2 DIABETES MELLITUS WITHOUT COMPLICATIONS (4) Fluid overload Code(s): E87.70 - FLUID OVERLOAD, UNSPECIFIED (5) Gangrene Code(s): I96 - GANGRENE, NOT ELSEWHERE CLASSIFIED LIKELY [facility] COFF[place] GROUND EMESIS Assessment/Plan INHALED BRONCHODILARS O2 DVT PROPHYLAXSIS BIPAP PRN ABG DR LANDA
[2016-06-29] MEDS: ALBUTEROL SO4 0.083% IH SOL 2.5 MG/3 ML VIAL.NEB. NEB PRN (11:30)
--- NOTE | 2016-06-29 11:53 | PN ---
Progress Note (short form) - Note Progress Note: Renal follow up for CRISTELA on CKD Pt seen and examined at the bedside reports some epigastic discomfort that comes and goes, no pain right now no sob NGT in place on wall suction Vital Signs Temperature 98.2 F 06/29/16 08:49 Pulse Rate 68 06/29/16 08:49 Respiratory Rate 18 06/29/16 09:00 Blood Pressure 130/53 06/29/16 08:49 O2 Sat by Pulse Oximetry (%) 100 06/29/16 09:00 Intake & Output 06/26/16 06/27/16 06/28/16 06/29/16 23:59 23:59 23:59 23:59 Intake Total 632 741 9243 460 Output Total 200 100 200 Balance -50 650 990 260 Weight 309 lb 6 oz 297 lb 3 oz 300 lb 8 oz 297 lb 1 oz Gen: NAD, NGT in place CVS: RRR, No M/R Lungs: CTA, No rales or wheeze Abd: soft, Obese, mild tenderness, + distension Ext: No edema, clubbing or cyanosis : No bladder distension CBC, BMP 06/29/16 05:40 06/29/16 05:40 Laboratory Tests 06/29/16 06/29/16 06/29/16 05:40 05:40 05:40 Phosphorus 5.7 H Magnesium 2.2 Iron Pending TIBC Pending Iron Saturation Pending Ferritin Albumin 2.1 L 06/29/16 05:40 Phosphorus Magnesium Iron TIBC Iron Saturation Ferritin 503.519 H Albumin Current Medications Acetaminophen (Tylenol -) 325 mg PO Q4H PRN PRN Reason: PAIN Stop: 06/29/16 18:33 Last Admin: 06/27/16 10:41 Dose: 325 mg Al Hydroxide/Mg Hydroxide (Mylanta Oral Suspension -) 30 ml PO BID [facility] Last Admin: 06/29/16 09:50 Dose: 30 ml Albuterol Sulfate (Ventolin 0.083% Nebulizer Soln -) 1 amp NEB Q6H PRN PRN Reason: SHORT OF BREATH/WHEEZING Last Admin: 06/28/16 10:25 Dose: 1 amp Aspirin (Ecotrin -) 81 mg PO DAILY [facility] Atorvastatin Calcium (Lipitor -) 20 mg PO HS [facility] Last Admin: 06/28/16 22:24 Dose: Not Given Carvedilol (Coreg -) 12.5 mg PO BID [facility] Last Admin: 06/29/16 09:50 Dose: 12.5 mg Collagenase (Santyl -) 1 applic TP DAILY [facility] Last Admin: 06/29/16 09:54 Dose: 1 applic Cyanocobalamin (Vitamin B12 -) 1,000 mcg PO DAILY [facility] Last Admin: 06/29/16 09:50 Dose: 1,000 mcg Epoetin Dawood (Procrit -) 10,000 unit SQ Q7D [facility] Last Admin: 06/26/16 21:34 Dose: 10,000 unit Heparin Sodium (Porcine) (Heparin -) 5,000 unit SQ BID [facility] Last Admin: 06/29/16 09:50 Dose: 5,000 unit Sodium Chloride (Normal Saline -) 1,000 mls @ 83 mls/hr IV ASDIR [facility] Insulin Aspart (Novolog Vial Sliding Scale -) 1 vial SQ ACHS [facility] PRN Reason: Protocol Last Admin: 06/29/16 11:49 Dose: Not Given Insulin Detemir (Levemir Vial) 20 units SQ DAILY@0700 [facility] Last Admin: 06/29/16 05:59 Dose: Not Given Isosorbide Mononitrate (Imdur -) 30 mg PO DAILY [facility] Last Admin: 06/29/16 09:50 Dose: 30 mg Levothyroxine Sodium (Synthroid -) 50 mcg PO DAILY@0700 [facility] Last Admin: 06/29/16 05:59 Dose: Not Given Lidocaine (Lidoderm Patch -) 1 patch TP DAILY [facility] Last Admin: 06/29/16 09:49 Dose: 1 patch Morphine Sulfate (Morphine Injection -) 0.5 mg IM Q6H PRN PRN Reason: PAIN Nystatin (Mycostatin Cream -) 1 applic TP BID [facility] Last Admin: 06/29/16 09:52 Dose: 1 applic Ondansetron HCl (Zofran Injection) 8 mg IVPB Q6H PRN PRN Reason: NAUSEA AND/OR VOMITING Last Admin: 06/27/16 06:46 Dose: 8 mg Oxycodone HCl (Roxicodone -) 5 mg PO Q4H PRN PRN Reason: PAIN LEVEL 6-10 Last Admin: 06/27/16 10:40 Dose: 5 mg Pantoprazole Sodium (Protonix 40mg Ivpb (Pre-Docked)) 40 mg IVPB BID [facility] Last Admin: 06/29/16 09:48 Dose: 40 mg Piperacillin Sod/Tazobactam Sod (Zosyn 3.375gm Ivpb (Pre-Docked)) 3.375 gm IVPB Q8H-IV [facility] PRN Reason: Protocol Last Admin: 06/29/16 09:48 Dose: 3.375 gm Polyethylene Glycol (Miralax (For Daily Use) -) 17 gm PO DAILY [facility] Last Admin: 06/29/16 09:51 Dose: 17 grams Senna/Docusate Sodium (Pericolace -) 2 tablet PO HS [facility] Last Admin: 06/28/16 22:25 Dose: Not Given Simethicone (Mylicon -) 80 mg PO QID [facility] Last Admin: 06/29/16 09:50 Dose: 80 mg A/p 71 year old Woman with PMhx of CKD, CHF, Morbid Obesity, IDDM, Anemia who presented with worsening LE wounds and found to have CRISTELA with BUN/Cr of 90/2.5. #CRISTELA on CKD Renal function worsening during the admission likely etiology renal hypoperfusion in setting of anemia and cellultiis Given persistently high BUN/Cr and pts inability to take in anything by mouth will start isotonic IVF Trend BUN/Cr no acute indication for ELECTRICIAN BUS #LE wound/Cellulitis continue Abx as per ID Vascular following #Anemia s/p transfusion continue LAILA Q weekly check iron studies - results pending #Hyperphosphatemia NPO currently so no binders indicated Thank you Lambert Mcnamara
[2016-06-29 12:38] LABS: ARTERIAL BLD GAS O2 SATURATION 98.3 % (90-98.9); ARTERIAL BLOOD GAS BASE EXCESS 0.1 meq/l (-2-2); ARTERIAL BLOOD GAS HCO3 27.4 meq/L (22-26)
[2016-06-29 12:39] LABS: ALLENS TEST POSITIVE; ART PUNCT SITE RIGHT RADIAL; ARTERIAL BLOOD GAS pH 7.25 (7.35-7.45); LPM/O2% 3L; PT. ON O2? YES; TYPE OF O2 NASAL
--- NOTE | 2016-06-29 12:56 | PN ---
Progress Note (short form) - Note Progress Note: CC: s: no cp palps dizzy sob. currently on bipap. + diffuse pain "all over". + significantly tender at areas of dependent edema. o: Current Medications Acetaminophen (Tylenol -) 325 mg PO Q4H PRN PRN Reason: PAIN Stop: 06/29/16 18:33 Last Admin: 06/27/16 10:41 Dose: 325 mg Al Hydroxide/Mg Hydroxide (Mylanta Oral Suspension -) 30 ml PO BID [facility] Last Admin: 06/29/16 09:50 Dose: 30 ml Albuterol Sulfate (Ventolin 0.083% Nebulizer Soln -) 1 amp NEB Q6H PRN PRN Reason: SHORT OF BREATH/WHEEZING Last Admin: 06/29/16 11:30 Dose: 1 amp Aspirin (Ecotrin -) 81 mg PO DAILY [facility] Atorvastatin Calcium (Lipitor -) 20 mg PO HS [facility] Last Admin: 06/28/16 22:24 Dose: Not Given Carvedilol (Coreg -) 12.5 mg PO BID [facility] Last Admin: 06/29/16 09:50 Dose: 12.5 mg Collagenase (Santyl -) 1 applic TP DAILY [facility] Last Admin: 06/29/16 09:54 Dose: 1 applic Cyanocobalamin (Vitamin B12 -) 1,000 mcg PO DAILY [facility] Last Admin: 06/29/16 09:50 Dose: 1,000 mcg Epoetin Dawood (Procrit -) 10,000 unit SQ Q7D [facility] Last Admin: 06/26/16 21:34 Dose: 10,000 unit Heparin Sodium (Porcine) (Heparin -) 5,000 unit SQ BID [facility] Last Admin: 06/29/16 09:50 Dose: 5,000 unit Sodium Chloride (Normal Saline -) 1,000 mls @ 83 mls/hr IV ASDIR [facility] Insulin Aspart (Novolog Vial Sliding Scale -) 1 vial SQ ACHS [facility] PRN Reason: Protocol Last Admin: 06/29/16 11:49 Dose: Not Given Insulin Detemir (Levemir Vial) 20 units SQ DAILY@0700 [facility] Last Admin: 06/29/16 05:59 Dose: Not Given Isosorbide Mononitrate (Imdur -) 30 mg PO DAILY [facility] Last Admin: 06/29/16 09:50 Dose: 30 mg Levothyroxine Sodium (Synthroid -) 50 mcg PO DAILY@0700 [facility] Last Admin: 06/29/16 05:59 Dose: Not Given Lidocaine (Lidoderm Patch -) 1 patch TP DAILY [facility] Last Admin: 06/29/16 09:49 Dose: 1 patch Morphine Sulfate (Morphine Injection -) 0.5 mg IM Q6H PRN PRN Reason: PAIN Nystatin (Mycostatin Cream -) 1 applic TP BID [facility] Last Admin: 06/29/16 09:52 Dose: 1 applic Ondansetron HCl (Zofran Injection) 8 mg IVPB Q6H PRN PRN Reason: NAUSEA AND/OR VOMITING Last Admin: 06/27/16 06:46 Dose: 8 mg Oxycodone HCl (Roxicodone -) 5 mg PO Q4H PRN PRN Reason: PAIN LEVEL 6-10 Last Admin: 06/27/16 10:40 Dose: 5 mg Pantoprazole Sodium (Protonix 40mg Ivpb (Pre-Docked)) 40 mg IVPB BID [facility] Last Admin: 06/29/16 09:48 Dose: 40 mg Piperacillin Sod/Tazobactam Sod (Zosyn 3.375gm Ivpb (Pre-Docked)) 3.375 gm IVPB Q8H-IV [facility] PRN Reason: Protocol Last Admin: 06/29/16 09:48 Dose: 3.375 gm Polyethylene Glycol (Miralax (For Daily Use) -) 17 gm PO DAILY [facility] Last Admin: 06/29/16 09:51 Dose: 17 grams Senna/Docusate Sodium (Pericolace -) 2 tablet PO HS [facility] Last Admin: 06/28/16 22:25 Dose: Not Given Simethicone (Mylicon -) 80 mg PO QID [facility] Last Admin: 06/29/16 09:50 Dose: 80 mg Vital Signs - 24 hr 06/28/16 06/28/16 06/28/16 14:00 14:07 18:00 Temperature 98.2 F Pulse Rate 60 59 L 65 Respiratory 20 20 Rate Blood Pressure 109/51 109/50 O2 Sat by Pulse 99 Oximetry (%) 06/28/16 06/28/16 06/28/16 20:52 21:00 22:00 Temperature 98.2 F Pulse Rate 66 Respiratory 20 20 Rate Blood Pressure 121/52 O2 Sat by Pulse 99 99 Oximetry (%) 06/29/16 06/29/16 06/29/16 02:03 06:00 08:49 Temperature 98.1 F 98.2 F 98.2 F Pulse Rate 60 68 68 Respiratory 18 18 18 Rate Blood Pressure 100/36 130/53 130/53 O2 Sat by Pulse 98 100 Oximetry (%) 06/29/16 06/29/16 09:00 11:30 Temperature Pulse Rate 62 Respiratory 18 Rate Blood Pressure O2 Sat by Pulse 100 100 Oximetry (%) Intake & Output 06/27/16 06/28/16 06/29/16 06/30/16 07:59 07:59 07:59 07:59 Intake Total 800 960 590 Output Total 200 100 200 Balance 600 860 390 Weight 297 lb 3 oz 300 lb 8 oz 297 lb 1 oz NAD, calm, obese, jvd tds RRR nl s1, s2 2/6 murmur at sternal border and apex scattered rhonchi bl, poor effort abd nt diminished distal pulses 1+ dependent indurated edema extending from lower extremities to abdomen with erythema/venous stasis changes/skin excoriations and peau d'orange changes of LE skin alert awake appropriate no jaundice diaphoresis CBC, BMP 06/29/16 05:40 06/29/16 05:40 Laboratory Tests 06/29/16 06/29/16 06/29/16 05:40 05:40 05:40 ABG pH ABG pCO2 at Pt Temp ABG pO2 at Pt Temp Oxygen Flow Rate Magnesium 2.2 Ferritin 503.519 H Total Bilirubin 0.6 D AST 9 L ALT 9 L Alkaline Phosphatase 102 Albumin 2.1 L TSH 13.30 H D Random Vancomycin 17.059 06/29/16 12:30 ABG pH 7.25 L ABG pCO2 at Pt Temp 64.6 H* ABG pO2 at Pt Temp 119.0 H D Oxygen Flow Rate 3l Magnesium Ferritin Total Bilirubin AST ALT Alkaline Phosphatase Albumin TSH Random Vancomycin Echo 07/11: mild-mod decr EF--global; nl RV; mild LAE; mild-mod MR/TR; RVSP 30-40 ; small peric effusion; + pleural eff echo 12/06/15: mild lvh. nl lv/rv, Septal motion c/w RV volume overload. Ab diastology. mild cheryl, mild-mod mr, mild as, mod-sev tr, rvsp 50, mod pericardial eff, no tamponade. pleural effusion. echo 12/11/15: focused, Nl lv. trivial pericardial eff. Pleural effusion. EKG 06/27/16: sr, nl intervals, nonspecific tw changes, no sig change prior cxr: clear lungs tele: SB 50's-60's a/p: 71 yo with h/o HFpEF, CAD s/p [place], HTN, HL, pHTN, MIRIAM, o2 dep't copd, CKD, IDDM, hypothyroid and chronic LLE cellulitis, here with non healing left foot wound/gangrene. chronic foot wound, s/p OR debridement 06/06/16: -now returns with worsening wound, gangrene -plan per vascular surgery/ID chronic HFpEF/pulm HTN/venous ins'y: - 06/2015 with mild-mod dec EF, but most recently with nl LV function on 12/11 echo. - pt with volume overload during mult prior admits here--vol status is always difficult to assess given morbidly obese neck hiding JVD, and chronically very abnormal CXR markings due to overlying soft tissue - cr slightly above baseline and patient vomiting/NPO with NGT output so agree with holding diuretics and management of IVF per renal. However, patient is total body volume overloaded with gross anasarca (exacerbated by low albumin). May ultimately need ultrafiltration for diuresis once acute issues resolve, will defer to renal. - management of thyroid abnormalities per pmd CAD, h/o NSTEMI: - has previously refused stress tests. h/o NSTEMI x 2 (2012, 2014) in setting of demand (sepsis/anemia) -MATEO deferred previously due to labile creat's--no change; -cath previously deferred due to: pt preference; hi risk of vascular complications (obese habitus), hi risk of BERNARDINO, and h/o recurrent anemia, possible occult GIB - currently without angianal sx's. EKG unchanged. Con't statin, coreg, asa, imdur CKD/michael: - as discussed above. mgm't per renal. anemia: -chronic, baseline runs 8s-9s; -freq acute drops/PRBCs in past; currently near baseline HTN: -controlled, running intermittently low. Today with bradycardia. will decrease dose of carvedilol. gastroparesis: -s/p ngt -GI following Poor prognosis.
--- NOTE | 2016-06-29 13:41 | PN ---
GI Progress Note Subjective: GI NOte: ( covering Dr Calhoun) : Had 800cc NG output overnight and another 300cc of pea soup like fluid today. Awaiting KUB. - Objective Vital Signs: Vital Signs Temperature 98.2 F 06/29/16 08:49 Pulse Rate 62 06/29/16 11:30 Respiratory Rate 18 06/29/16 09:00 Blood Pressure 130/53 06/29/16 08:49 O2 Sat by Pulse Oximetry (%) 100 06/29/16 13:11 Constitutional: Calm Gastrointestinal Inspection: Yes: Distention ...Auscultate: Yes: Hypoactive Bowel Sounds ...Palpate: Yes: Soft, Other (no tenderness elicited) Labs: CBC, BMP 06/29/16 05:40 06/29/16 05:40 INR, PTT INR 1.37 (0.82-1.09) H 06/27/16 06:30 Assessment/Plan Persistent ileus with likely component of gastroparesis. Will start Reglan. Given volume of NG return will continue NG suctioning
[2016-06-29] MEDS: METOCLOPRAMIDE HCL INJECTION 10 MG/2 ML VIAL IVPB SCH ×2 (13:54→22:30)
[2016-06-29] MEDS: SODIUM CHLORIDE 1,000 ML IV SCH (13:56)
[2016-06-29] MEDS: ATORVASTATIN CA 20 MG TABLET (FP) PO SCH (23:22)
[2016-06-29] MEDS: CARVEDILOL 6.25 MG TABLET (FP) PO SCH (23:22)
[2016-06-29] MEDS: SENNOSIDES/DOCUSATE COMBO (SENNA PLUS) TABLET (UD) PO SCH (23:23)
[2016-06-30] MEDS: PIPERACILLIN/TAZOB 3.375 GM/50 ML PRE-DOCKED IVPB SCH ×3 (02:45→17:08)
[2016-06-30] MEDS: METOCLOPRAMIDE HCL INJECTION 10 MG/2 ML VIAL IVPB SCH ×4 (03:23→22:10)
[2016-06-30 06:36] LABS: SERUM IRON 40 ug/dL (27-139); TOTAL IRON BINDING CAPACITY 168 ug/dL (250-450); UIBC 128 ug/dL (118-369)
[2016-06-30] MEDS: INSULIN SLIDING SCALE (NOVOLOG) 1 VIAL SQ SCH ×4 (06:36→22:11)
[2016-06-30] MEDS: INSULIN DETEMIR 100 UNITS/ML MDV SQ SCH (06:36)
[2016-06-30] MEDS: LEVOTHYROXINE NA 50 MCG TABLET (FP) PO SCH (06:36)
[2016-06-30 08:32] LABS: BASOPHIL 0.7 % (0-2.0); EOSINOPHIL 2.8 % (0-4.5); MCH 28.3 pg (25.7-33.7); MCHC 31.7 g/dl (32.0-36.0); MEAN CELL VOLUME 89.6 fl (80-96); MEAN PLT VOLUME 8.1 fl (7.5-11.1); PLATELET COUNT 223 K/MM3 (134-434); RDW 16.4 % (11.6-15.6); WHITE BLOOD COUNT 9.2 K/mm3 (4.0-10.0)
[2016-06-30 08:56] LABS: CALCIUM 7.7 mg/dL (8.5-10.1)
[2016-06-30 09:02] LABS: BILIRUBIN,TOTAL 0.7 mg/dL (0.2-1.0); CREATININE 2.9 mg/dL (0.55-1.02); MAGNESIUM 2.1 mg/dL (1.8-2.4); PHOSPHOROUS 5.2 mg/dL (2.5-4.9); TOT PROT 6.2 g/dl (6.4-8.2)
[2016-06-30] MEDS: CARVEDILOL 6.25 MG TABLET (FP) PO SCH (09:51)
[2016-06-30] MEDS: HEPARIN NA (PORCINE) 5,000 UNITS/ML 1ML VIAL SQ SCH ×2 (09:52→22:11)
[2016-06-30] MEDS: ISOSORBIDE MONONITRATE 30 MG TAB.SR.24H (FP) PO SCH (09:52)
[2016-06-30] MEDS: ASPIRIN COATED 81 MG TABLET.EC PO SCH (09:52)
[2016-06-30] MEDS: SIMETHICONE 80 MG TAB.CHEW (FP) PO SCH ×3 (09:53→22:10)
[2016-06-30] MEDS: CYANOCOBALAMIN 1,000 MCG TABLET (FP) PO SCH (09:53)
[2016-06-30] MEDS: MAG HYDROX/AL HYDROX/SIMETH 30 ML UNIT-DOSE CUP PO SCH ×2 (09:53→22:11)
[2016-06-30] MEDS: POLYETHYLENE GLYCOL 3350 119 GM BTL PO SCH (09:53)
[2016-06-30] MEDS: PANTOPRAZOLE SODIUM 40 MG/100 ML PRE-DOCKED IVPB SCH ×2 (10:04→22:12)
[2016-06-30] MEDS: NYSTATIN 100,000 UNIT/GM TOPICAL CREAM 15 GM TUBE TP SCH ×2 (10:05→22:11)
[2016-06-30] MEDS: LIDOCAINE 5% TOPICAL PATCH TP SCH (10:05)
[2016-06-30] MEDS: COLLAGENASE CLOSTRIDIUM HIST. 30 GRAMS TUBE TP SCH (10:06)
--- NOTE | 2016-06-30 10:43 | PN ---
Progress Note, Physician History of Present Illness: pulmonary sleeping on bipap,-resp distress. pt place on bipap earlier this am secondary to hypoxemia - Current Medication List Current Medications: Active Medications Al Hydroxide/Mg Hydroxide (Mylanta Oral Suspension -) 30 ml PO BID [facility] Last Admin: 06/30/16 09:53 Dose: 30 ml Albuterol Sulfate (Ventolin 0.083% Nebulizer Soln -) 1 amp NEB Q6H PRN PRN Reason: SHORT OF BREATH/WHEEZING Last Admin: 06/29/16 11:30 Dose: 1 amp Aspirin (Ecotrin -) 81 mg PO DAILY [facility] Last Admin: 06/30/16 09:52 Dose: 81 mg Atorvastatin Calcium (Lipitor -) 20 mg PO HS [facility] Last Admin: 06/29/16 23:22 Dose: 20 mg Carvedilol (Coreg -) 6.25 mg PO BID [facility] Last Admin: 06/30/16 09:51 Dose: 6.25 mg Collagenase (Santyl -) 1 applic TP DAILY [facility] Last Admin: 06/29/16 09:54 Dose: 1 applic Cyanocobalamin (Vitamin B12 -) 1,000 mcg PO DAILY [facility] Last Admin: 06/30/16 09:53 Dose: 1,000 mcg Epoetin Dawood (Procrit -) 10,000 unit SQ Q7D [facility] Last Admin: 06/26/16 21:34 Dose: 10,000 unit Heparin Sodium (Porcine) (Heparin -) 5,000 unit SQ BID [facility] Last Admin: 06/30/16 09:52 Dose: 5,000 unit Sodium Chloride (Normal Saline -) 1,000 mls @ 83 mls/hr IV ASDIR [facility] Last Admin: 06/29/16 13:56 Dose: 83 mls/hr Insulin Aspart (Novolog Vial Sliding Scale -) 1 vial SQ ACHS [facility] PRN Reason: Protocol Last Admin: 06/30/16 06:36 Dose: Not Given Insulin Detemir (Levemir Vial) 20 units SQ DAILY@0700 [facility] Last Admin: 06/30/16 06:36 Dose: Not Given Isosorbide Mononitrate (Imdur -) 30 mg PO DAILY [facility] Last Admin: 06/30/16 09:52 Dose: 30 mg Levothyroxine Sodium (Synthroid -) 50 mcg PO DAILY@0700 [facility] Last Admin: 06/30/16 06:36 Dose: Not Given Lidocaine (Lidoderm Patch -) 1 patch TP DAILY [facility] Last Admin: 06/29/16 09:49 Dose: 1 patch Metoclopramide HCl (Reglan Injection -) 10 mg IVPB Q6H [facility] Last Admin: 06/30/16 09:58 Dose: 10 mg Morphine Sulfate (Morphine Injection -) 0.5 mg IM Q6H PRN PRN Reason: PAIN Last Admin: 06/29/16 13:55 Dose: 0.5 mg Nystatin (Mycostatin Cream -) 1 applic TP BID [facility] Last Admin: 06/29/16 23:22 Dose: 1 applic Ondansetron HCl (Zofran Injection) 8 mg IVPB Q6H PRN PRN Reason: NAUSEA AND/OR VOMITING Last Admin: 06/27/16 06:46 Dose: 8 mg Oxycodone HCl (Roxicodone -) 5 mg PO Q4H PRN PRN Reason: PAIN LEVEL 6-10 Last Admin: 06/27/16 10:40 Dose: 5 mg Pantoprazole Sodium (Protonix 40mg Ivpb (Pre-Docked)) 40 mg IVPB BID [facility] Last Admin: 06/29/16 23:23 Dose: 40 mg Piperacillin Sod/Tazobactam Sod (Zosyn 3.375gm Ivpb (Pre-Docked)) 3.375 gm IVPB Q8H-IV [facility] PRN Reason: Protocol Last Admin: 06/30/16 02:45 Dose: 3.375 gm Polyethylene Glycol (Miralax (For Daily Use) -) 17 gm PO DAILY [facility] Last Admin: 06/30/16 09:53 Dose: 17 grams Senna/Docusate Sodium (Pericolace -) 2 tablet PO HS [facility] Last Admin: 06/29/16 23:23 Dose: Not Given Simethicone (Mylicon -) 80 mg PO QID [facility] Last Admin: 06/30/16 09:53 Dose: 80 mg - Objective Vital Signs: Vital Signs Temperature 98.4 F 06/30/16 08:59 Pulse Rate 68 06/30/16 08:59 Respiratory Rate 20 06/30/16 08:59 Blood Pressure 120/51 06/30/16 08:59 O2 Sat by Pulse Oximetry (%) 96 06/30/16 08:59 Constitutional: Yes: Well Nourished, Obese, Other (sleeping) Eyes: Yes: WNL HENT: Yes: WNL Neck: Yes: WNL Cardiovascular: Yes: Pulse Irregular, S1, S2 Respiratory: Yes: Rhonchi (few scattered luigi rhonchi) Gastrointestinal: Yes: Normal Bowel Sounds, Soft Extremities: Yes: WNL Edema: Yes Labs: CBC, BMP 06/30/16 05:45 06/30/16 05:45 INR, PTT INR 1.37 (0.82-1.09) H 06/27/16 06:30 Laboratory Tests 06/29/16 12:30 ABG pH 7.25 L ABG pCO2 at Pt Temp 64.6 H* ABG pO2 at Pt Temp 119.0 H D ABG HCO3 27.4 H ABG O2 Sat (Measured) 98.3 Oxygen Flow Rate 3l Assessment/Plan Problem List - Problems (1) Acute on chronic renal failure Code(s): N17.9 - ACUTE KIDNEY FAILURE, UNSPECIFIED N18.9 - CHRONIC KIDNEY DISEASE, UNSPECIFIED (2) CO2 retention Code(s): E87.2 - ACIDOSIS (3) Diabetes Code(s): E11.9 - TYPE 2 DIABETES MELLITUS WITHOUT COMPLICATIONS (4) Fluid overload Code(s): E87.70 - FLUID OVERLOAD, UNSPECIFIED (5) Gangrene Code(s): I96 - GANGRENE, NOT ELSEWHERE CLASSIFIED LIKELY OSAS COFFEE GROUND EMESIS ACUTE ON CHRONIC HYPOXEMIC/HYPERCAPNEIC RESPIRATORY FAILURE Assessment/Plan INHALED BRONCHODILARS O2 DVT PROPHYLAXSIS BIPAP PRN ABG CHEST X-RAY MONITOR H+H DR LANDA
[2016-06-30] MEDS ORDERED: morphine CARPU-JECT 2 MG/1 ML DISP.SYRIN IM PRN (10:54)
[2016-06-30 11:07] LABS: ARTERIAL BLD GAS O2 SATURATION 93.6 % (90-98.9); ARTERIAL BLOOD GAS BASE EXCESS 0.5 meq/l (-2-2); ARTERIAL BLOOD GAS PO2 71.8 mmHg (70-100)
[2016-06-30 11:08] LABS: ALLENS TEST POSITIVE
[2016-06-30 11:09] LABS: ART PUNCT SITE RIGHT RADIAL; LPM/O2% 30%; PT. ON O2? YES
[2016-06-30 11:10] LABS: ARTERIAL BLOOD GAS pH 7.34 (7.35-7.45); MECH. VENT. BIPAP; TYPE OF O2 BIPAP; VENT RATE 14; VT/PRESS IPAP 14/EPAP 6
--- NOTE | 2016-06-30 11:13 | PN ---
Progress Note, Physician Chief Complaint: in bed on BIPAP was desaturating earlier, is on IVF 84 cc/h per renal b/o increasing creatinine and off diuretics; was SOB but feels a little better in BIPAP; NGT drained 300 cc since this am; on suction; feels cold; pain in the foot; - Current Medication List Current Medications: Active Medications Al Hydroxide/Mg Hydroxide (Mylanta Oral Suspension -) 30 ml PO BID [facility] Last Admin: 06/30/16 09:53 Dose: 30 ml Albuterol Sulfate (Ventolin 0.083% Nebulizer Soln -) 1 amp NEB Q6H PRN PRN Reason: SHORT OF BREATH/WHEEZING Last Admin: 06/29/16 11:30 Dose: 1 amp Aspirin (Ecotrin -) 81 mg PO DAILY [facility] Last Admin: 06/30/16 09:52 Dose: 81 mg Atorvastatin Calcium (Lipitor -) 20 mg PO HS [facility] Last Admin: 06/29/16 23:22 Dose: 20 mg Carvedilol (Coreg -) 6.25 mg PO BID [facility] Last Admin: 06/30/16 09:51 Dose: 6.25 mg Collagenase (Santyl -) 1 applic TP DAILY [facility] Last Admin: 06/29/16 09:54 Dose: 1 applic Cyanocobalamin (Vitamin B12 -) 1,000 mcg PO DAILY [facility] Last Admin: 06/30/16 09:53 Dose: 1,000 mcg Epoetin Dawood (Procrit -) 10,000 unit SQ Q7D [facility] Last Admin: 06/26/16 21:34 Dose: 10,000 unit Heparin Sodium (Porcine) (Heparin -) 5,000 unit SQ BID [facility] Last Admin: 06/30/16 09:52 Dose: 5,000 unit Sodium Chloride (Normal Saline -) 1,000 mls @ 83 mls/hr IV ASDIR [facility] Last Admin: 06/29/16 13:56 Dose: 83 mls/hr Insulin Aspart (Novolog Vial Sliding Scale -) 1 vial SQ ACHS [facility] PRN Reason: Protocol Last Admin: 06/30/16 06:36 Dose: Not Given Insulin Detemir (Levemir Vial) 20 units SQ DAILY@0700 [facility] Last Admin: 06/30/16 06:36 Dose: Not Given Isosorbide Mononitrate (Imdur -) 30 mg PO DAILY [facility] Last Admin: 06/30/16 09:52 Dose: 30 mg Levothyroxine Sodium (Synthroid -) 50 mcg PO DAILY@0700 [facility] Last Admin: 06/30/16 06:36 Dose: Not Given Lidocaine (Lidoderm Patch -) 1 patch TP DAILY [facility] Last Admin: 06/29/16 09:49 Dose: 1 patch Metoclopramide HCl (Reglan Injection -) 10 mg IVPB Q6H [facility] Last Admin: 06/30/16 09:58 Dose: 10 mg Morphine Sulfate (Morphine Injection -) 1 mg IM Q6H PRN PRN Reason: PAIN Nystatin (Mycostatin Cream -) 1 applic TP BID [facility] Last Admin: 06/29/16 23:22 Dose: 1 applic Ondansetron HCl (Zofran Injection) 8 mg IVPB Q6H PRN PRN Reason: NAUSEA AND/OR VOMITING Last Admin: 06/27/16 06:46 Dose: 8 mg Oxycodone HCl (Roxicodone -) 5 mg PO Q4H PRN PRN Reason: PAIN LEVEL 6-10 Last Admin: 06/27/16 10:40 Dose: 5 mg Pantoprazole Sodium (Protonix 40mg Ivpb (Pre-Docked)) 40 mg IVPB BID [facility] Last Admin: 06/29/16 23:23 Dose: 40 mg Piperacillin Sod/Tazobactam Sod (Zosyn 3.375gm Ivpb (Pre-Docked)) 3.375 gm IVPB Q8H-IV [facility] PRN Reason: Protocol Last Admin: 06/30/16 02:45 Dose: 3.375 gm Polyethylene Glycol (Miralax (For Daily Use) -) 17 gm PO DAILY [facility] Last Admin: 06/30/16 09:53 Dose: 17 grams Senna/Docusate Sodium (Pericolace -) 2 tablet PO HS [facility] Last Admin: 06/29/16 23:23 Dose: Not Given Simethicone (Mylicon -) 80 mg PO QID [facility] Last Admin: 06/30/16 09:53 Dose: 80 mg - Objective Vital Signs: Vital Signs Temperature 98.4 F 06/30/16 08:59 Pulse Rate 68 06/30/16 08:59 Respiratory Rate 20 06/30/16 08:59 Blood Pressure 120/51 06/30/16 08:59 O2 Sat by Pulse Oximetry (%) 96 06/30/16 08:59 Constitutional: Yes: Anxious Eyes: Yes: Conjunctiva Clear HENT: Yes: Atraumatic Neck: Yes: Supple Cardiovascular: Yes: Regular Rate and Rhythm Respiratory: Yes: Diminished Gastrointestinal: Yes: Soft, Abdomen, Obese. No: Distention, Tenderness Genitourinary: No: Hematuria Extremities: No: Cold, Cool Edema: Yes Wound/Incision: Yes: Draining (L foot dressed, some serous draining noted) Neurological: Yes: Alert, Oriented. No: WNL (bedbound, functional quadriplegia) Psychiatric: Yes: Alert, Oriented. No: Agitated, Suicidal Ideation Labs: CBC, BMP 06/30/16 05:45 06/30/16 05:45 INR, PTT INR 1.37 (0.82-1.09) H 06/27/16 06:30 - ....Imaging Chest X-ray: Report Reviewed X-ray: Report Reviewed Other: Report Reviewed Assessment/Plan The patient is a 71 year old female with significant past medical history of hypertension, hyperlipidemia, diabetes, CAD, CHF, MIx2, COPD (O2 dependent 2L), and renal insufficiency who presents to the emergency department sent from wound care by Dr. Alonso for further evaluation of a left lower extremity wound. Nonhealing after ATB and HBO tx. Pt nonambulatory for [facility] N[facility]; DNR DNI active issues: L foot gangrene; ARF on CRF, anemia gastroparesis vomiting; respiratory failure volume overload; cardio, GI, renal f/u NGT; NPO, s/p PRBC and IVF; cut down IVF rate to 42 cc/h IV ATB per ID; wound care per vascular sx; d/w pt she might need amputation gastric DVT aspiration PFX pain meds IM f/u labs and xrays prognosis guarded d/w pt what to do if her breathing worsens or if she stops breathing, or if her heart stops what she would want to be done; she seems axox3 able to understand, ask and answer questions appropriately and she expressed again wish for DNR DNI , no aggressive measures (no chets compressions, no intubation) in the above scenarios, she is aware of consequences and significance; she wishes only comfort care if she would not able to breath. HCP1 [employer] phone number is wrong [phone] (listed on HCP form and on CT papers) is a [employer] business number and there is no one by that name there; Patricia sister HCP2 returned my call (Paged me) but when I called her back there was no answer; I left message to call me; also called palliative care svc for HCP advanced directives, goals of care called; d/w pt and staff
[2016-06-30] MEDS: SODIUM CHLORIDE 1,000 ML IV SCH (13:04)
--- NOTE | 2016-06-30 13:06 | PN ---
Progress Note (short form) - Note Progress Note: CC: LE gangrene s: no cp palps dizzy sob. currently on bipap, worsened hypoxia. Pain improved today o: Current Medications Al Hydroxide/Mg Hydroxide (Mylanta Oral Suspension -) 30 ml PO BID [facility] Last Admin: 06/30/16 09:53 Dose: 30 ml Albuterol Sulfate (Ventolin 0.083% Nebulizer Soln -) 1 amp NEB Q6H PRN PRN Reason: SHORT OF BREATH/WHEEZING Last Admin: 06/29/16 11:30 Dose: 1 amp Aspirin (Ecotrin -) 81 mg PO DAILY [facility] Last Admin: 06/30/16 09:52 Dose: 81 mg Atorvastatin Calcium (Lipitor -) 20 mg PO HS [facility] Last Admin: 06/29/16 23:22 Dose: 20 mg Carvedilol (Coreg -) 6.25 mg PO BID [facility] Last Admin: 06/30/16 09:51 Dose: 6.25 mg Collagenase (Santyl -) 1 applic TP DAILY [facility] Last Admin: 06/29/16 09:54 Dose: 1 applic Cyanocobalamin (Vitamin B12 -) 1,000 mcg PO DAILY [facility] Last Admin: 06/30/16 09:53 Dose: 1,000 mcg Epoetin Dawood (Procrit -) 10,000 unit SQ Q7D [facility] Last Admin: 06/26/16 21:34 Dose: 10,000 unit Heparin Sodium (Porcine) (Heparin -) 5,000 unit SQ BID [facility] Last Admin: 06/30/16 09:52 Dose: 5,000 unit Sodium Chloride (Normal Saline -) 1,000 mls @ 83 mls/hr IV ASDIR [facility] Last Admin: 06/29/16 13:56 Dose: 83 mls/hr Insulin Aspart (Novolog Vial Sliding Scale -) 1 vial SQ ACHS [facility] PRN Reason: Protocol Last Admin: 06/30/16 06:36 Dose: Not Given Insulin Detemir (Levemir Vial) 20 units SQ DAILY@0700 [facility] Last Admin: 06/30/16 06:36 Dose: Not Given Isosorbide Mononitrate (Imdur -) 30 mg PO DAILY [facility] Last Admin: 06/30/16 09:52 Dose: 30 mg Levothyroxine Sodium (Synthroid -) 50 mcg PO DAILY@0700 [facility] Last Admin: 06/30/16 06:36 Dose: Not Given Lidocaine (Lidoderm Patch -) 1 patch TP DAILY [facility] Last Admin: 06/29/16 09:49 Dose: 1 patch Metoclopramide HCl (Reglan Injection -) 10 mg IVPB Q6H [facility] Last Admin: 06/30/16 09:58 Dose: 10 mg Morphine Sulfate (Morphine Injection -) 1 mg IM Q6H PRN PRN Reason: PAIN Nystatin (Mycostatin Cream -) 1 applic TP BID [facility] Last Admin: 06/29/16 23:22 Dose: 1 applic Ondansetron HCl (Zofran Injection) 8 mg IVPB Q6H PRN PRN Reason: NAUSEA AND/OR VOMITING Last Admin: 06/27/16 06:46 Dose: 8 mg Oxycodone HCl (Roxicodone -) 5 mg PO Q4H PRN PRN Reason: PAIN LEVEL 6-10 Last Admin: 06/27/16 10:40 Dose: 5 mg Pantoprazole Sodium (Protonix 40mg Ivpb (Pre-Docked)) 40 mg IVPB BID [facility] Last Admin: 06/29/16 23:23 Dose: 40 mg Piperacillin Sod/Tazobactam Sod (Zosyn 3.375gm Ivpb (Pre-Docked)) 3.375 gm IVPB Q8H-IV [facility] PRN Reason: Protocol Last Admin: 06/30/16 02:45 Dose: 3.375 gm Polyethylene Glycol (Miralax (For Daily Use) -) 17 gm PO DAILY [facility] Last Admin: 06/30/16 09:53 Dose: 17 grams Senna/Docusate Sodium (Pericolace -) 2 tablet PO HS [facility] Last Admin: 06/29/16 23:23 Dose: Not Given Simethicone (Mylicon -) 80 mg PO QID [facility] Last Admin: 06/30/16 09:53 Dose: 80 mg Vital Signs - 24 hr 06/29/16 06/29/16 06/29/16 13:11 15:04 18:00 Temperature 98.7 F 97.2 F L Pulse Rate 64 68 Respiratory 20 20 Rate Blood Pressure 110/56 128/60 O2 Sat by Pulse 100 Oximetry (%) 06/29/16 06/29/16 06/29/16 21:00 22:00 23:58 Temperature 97.7 F Pulse Rate 70 Respiratory 20 20 Rate Blood Pressure 122/52 O2 Sat by Pulse 96 92 L 96 Oximetry (%) 06/30/16 06/30/16 06/30/16 02:11 02:14 05:59 Temperature 97.5 F L Pulse Rate 59 L Respiratory 18 Rate Blood Pressure 96/44 O2 Sat by Pulse 90 L 90 L Oximetry (%) 06/30/16 06/30/16 08:59 09:00 Temperature 98.4 F Pulse Rate 68 Respiratory 20 20 Rate Blood Pressure 120/51 O2 Sat by Pulse 96 96 Oximetry (%) Intake & Output 06/28/16 06/29/16 06/30/16 07/01/16 07:59 07:59 07:59 07:59 Intake Total 283 788 5216 450 Output Total 100 200 100 Balance 093 130 1206 450 Weight 300 lb 8 oz 297 lb 1 oz 299 lb 4.8 oz NAD, calm, obese, jvd tds. on bipap RRR nl s1, s2 2/6 murmur at sternal border and apex scattered rhonchi bl, poor effort abd nt diminished distal pulses 1+ dependent indurated edema extending from lower extremities to abdomen with erythema/venous stasis changes/skin excoriations and peau d'orange changes of LE skin alert awake appropriate no jaundice diaphoresis CBC, BMP 06/30/16 05:45 06/30/16 05:45 Laboratory Tests 06/27/16 06/30/16 06/30/16 06:30 05:45 11:00 INR 1.37 H ABG pH 7.34 L ABG pCO2 at Pt Temp 49.5 H D ABG pO2 at Pt Temp 71.8 D ABG HCO3 26.0 ABG O2 Sat (Measured) 93.6 Total Bilirubin 0.7 AST 5 L D ALT 7 L D Alkaline Phosphatase 89 Albumin 2.0 L Echo 07/11: mild-mod decr EF--global; nl RV; mild LAE; mild-mod MR/TR; RVSP 30-40 ; small peric effusion; + pleural eff echo 12/06/15: mild lvh. nl lv/rv, Septal motion c/w RV volume overload. Ab diastology. mild cheryl, mild-mod mr, mild as, mod-sev tr, rvsp 50, mod pericardial eff, no tamponade. pleural effusion. echo 12/11/15: focused, Nl lv. trivial pericardial eff. Pleural effusion. EKG 06/27/16: sr, nl intervals, nonspecific tw changes, no sig change prior tele: SB 50's-60's a/p: 71 yo with h/o HFpEF, CAD s/p AL, HTN, HL, pHTN, MIRIAM, o2 dep't copd, CKD, IDDM, hypothyroid and chronic LLE cellulitis, here with non healing left foot wound/gangrene. chronic foot wound, s/p OR debridement 06/06/16: -now returns with worsening wound, gangrene -plan per vascular surgery/ID chronic HFpEF/pulm HTN/venous ins'y: - 06/2015 with mild-mod dec EF, but most recently with nl LV function on 12/11 echo. - pt with volume overload during mult prior admits here--vol status is always difficult to assess given morbidly obese neck hiding JVD, and chronically very abnormal CXR markings due to overlying soft tissue - cr slightly above baseline and patient vomiting/NPO with NGT output so agree with holding diuretics and management of IVF per renal. However, patient is total body volume overloaded with gross anasarca (exacerbated by low albumin). May ultimately need ultrafiltration for diuresis once acute issues resolve, will defer to renal. - hypoxia worsening, pulm following. - management of thyroid abnormalities per pmd - Repeat echo. CAD, h/o NSTEMI: - has previously refused stress tests. h/o NSTEMI x 2 (2012, 2014) in setting of demand (sepsis/anemia) -MATEO deferred previously due to labile creat's--no change; -cath previously deferred due to: pt preference; hi risk of vascular complications (obese habitus), hi risk of BERNARDINO, and h/o recurrent anemia, possible occult GIB - currently without anginal sx's. EKG unchanged. Con't statin, coreg, asa, imdur CKD/michael: - as discussed above. mgm't per renal. anemia: -chronic, baseline runs 8s-9s; -freq acute drops/PRBCs in past; currently near baseline HTN: -controlled, running intermittently low. 06/29-06/30 with persistent bradycardia decreased dose of carvedilol to 6.25 mg bid 3/4, will decrease to 3.125 mg bid today. gastroparesis: -s/p ngt -GI following Poor prognosis. GOC discussions ongoing.
[2016-06-30] MEDS ORDERED: SODIUM CHLORIDE 1,000 ML IV SCH (15:59)
--- NOTE | 2016-06-30 16:32 | PN ---
Progress Note (short form) - Note Progress Note: Renal follow up for CRISTELA on CKD Pt seen and examined at the bedside on BIPAP, 30% FiO2 has some N/V today no chest pain comfortable on BIPAP NGT on wall suction Vital Signs Temperature 97.8 F 06/30/16 15:58 Pulse Rate 67 06/30/16 15:58 Respiratory Rate 22 06/30/16 15:58 Blood Pressure 110/48 06/30/16 15:58 O2 Sat by Pulse Oximetry (%) 96 06/30/16 10:00 Intake & Output 06/27/16 06/28/16 06/29/16 06/30/16 23:59 23:59 23:59 23:59 Intake Total 650 1090 1330 1250 Output Total 100 300 Balance 650 631 7132 1250 Weight 297 lb 3 oz 300 lb 8 oz 297 lb 1 oz 299 lb 4.8 oz Gen: NAD, NGT in place CVS: RRR, No M/R Lungs: CTA, No rales or wheeze Abd: soft, Obese, mild tenderness, + distension Ext: No edema, clubbing or cyanosis : No bladder distension CBC, BMP 06/30/16 05:45 06/30/16 05:45 Current Medications Al Hydroxide/Mg Hydroxide (Mylanta Oral Suspension -) 30 ml PO BID [facility] Last Admin: 06/30/16 09:53 Dose: 30 ml Albuterol Sulfate (Ventolin 0.083% Nebulizer Soln -) 1 amp NEB Q6H PRN PRN Reason: SHORT OF BREATH/WHEEZING Last Admin: 06/29/16 11:30 Dose: 1 amp Aspirin (Ecotrin -) 81 mg PO DAILY [facility] Last Admin: 06/30/16 09:52 Dose: 81 mg Atorvastatin Calcium (Lipitor -) 20 mg PO HS [facility] Last Admin: 06/29/16 23:22 Dose: 20 mg Carvedilol (Coreg -) 3.125 mg PO BID [facility] Collagenase (Santyl -) 1 applic TP DAILY [facility] Last Admin: 06/30/16 10:06 Dose: 1 applic Cyanocobalamin (Vitamin B12 -) 1,000 mcg PO DAILY [facility] Last Admin: 06/30/16 09:53 Dose: 1,000 mcg Epoetin Dawood (Procrit -) 10,000 unit SQ Q7D [facility] Last Admin: 06/26/16 21:34 Dose: 10,000 unit Heparin Sodium (Porcine) (Heparin -) 5,000 unit SQ BID [facility] Last Admin: 06/30/16 09:52 Dose: 5,000 unit Sodium Chloride (Normal Saline -) 1,000 mls @ 42 mls/hr IV ASDIR [facility] Insulin Aspart (Novolog Vial Sliding Scale -) 1 vial SQ ACHS [facility] PRN Reason: Protocol Last Admin: 06/30/16 13:05 Dose: Not Given Insulin Detemir (Levemir Vial) 20 units SQ DAILY@0700 [facility] Last Admin: 06/30/16 06:36 Dose: Not Given Isosorbide Mononitrate (Imdur -) 30 mg PO DAILY [facility] Last Admin: 06/30/16 09:52 Dose: 30 mg Levothyroxine Sodium (Synthroid -) 50 mcg PO DAILY@0700 [facility] Last Admin: 06/30/16 06:36 Dose: Not Given Lidocaine (Lidoderm Patch -) 1 patch TP DAILY [facility] Last Admin: 06/30/16 10:05 Dose: 1 patch Metoclopramide HCl (Reglan Injection -) 10 mg IVPB Q6H [facility] Last Admin: 06/30/16 14:26 Dose: 10 mg Morphine Sulfate (Morphine Injection -) 1 mg IM Q6H PRN PRN Reason: PAIN Nystatin (Mycostatin Cream -) 1 applic TP BID [facility] Last Admin: 06/30/16 10:05 Dose: 1 applic Ondansetron HCl (Zofran Injection) 8 mg IVPB Q6H PRN PRN Reason: NAUSEA AND/OR VOMITING Last Admin: 06/27/16 06:46 Dose: 8 mg Oxycodone HCl (Roxicodone -) 5 mg PO Q4H PRN PRN Reason: PAIN LEVEL 6-10 Last Admin: 06/27/16 10:40 Dose: 5 mg Pantoprazole Sodium (Protonix 40mg Ivpb (Pre-Docked)) 40 mg IVPB BID [facility] Last Admin: 06/30/16 10:04 Dose: 40 mg Piperacillin Sod/Tazobactam Sod (Zosyn 3.375gm Ivpb (Pre-Docked)) 3.375 gm IVPB Q8H-IV [facility] PRN Reason: Protocol Last Admin: 06/30/16 10:05 Dose: 3.375 gm Polyethylene Glycol (Miralax (For Daily Use) -) 17 gm PO DAILY [facility] Last Admin: 06/30/16 09:53 Dose: 17 grams Senna/Docusate Sodium (Pericolace -) 2 tablet PO HS [facility] Last Admin: 06/29/16 23:23 Dose: Not Given Simethicone (Mylicon -) 80 mg PO QID [facility] Last Admin: 06/30/16 13:04 Dose: Not Given A/p 71 year old Woman with PMhx of CKD, CHF, Morbid Obesity, IDDM, Anemia who presented with worsening LE wounds and found to have CRISTELA with BUN/Cr of 90/2.5. #CRISTELA on CKD Renal function worsening during the admission likely etiology renal hypoperfusion in setting of anemia and cellultiis IVF rate decreased because of SOB/Hypoxia CXR showed improved lung fileds although body size makes interpretation difficult Continue gentle IVF hydration for now Check urine studies no indication for [employer] At this time Thank you Lambert Mcnamara
--- NOTE | 2016-06-30 17:16 | PN ---
GI Progress Note Subjective: GI ( fo Dr Calhoun) FUA offers minimal information. Nursing informs me that there is still significant NG output > 400cc so far. - Objective Vital Signs: Vital Signs Temperature 97.8 F 06/30/16 15:58 Pulse Rate 67 06/30/16 15:58 Respiratory Rate 22 06/30/16 15:58 Blood Pressure 110/48 06/30/16 15:58 O2 Sat by Pulse Oximetry (%) 96 06/30/16 10:00 Constitutional: Calm, Other (BIPAP mask on) ...Auscultate: Yes: Hypoactive Bowel Sounds ...Palpate: Yes: Other (nontender) Labs: CBC, BMP 06/30/16 05:45 06/30/16 05:45 INR, PTT INR 1.37 (0.82-1.09) H 06/27/16 06:30 Assessment/Plan Persistent ileus/gastroparesis. Continue NG suctioning.
[2016-06-30] MEDS: CARVEDILOL 3.125 MG TABLET (FP) PO SCH (22:11)
[2016-06-30] MEDS: ATORVASTATIN CA 20 MG TABLET (FP) PO SCH (22:11)
[2016-06-30] MEDS: SENNOSIDES/DOCUSATE COMBO (SENNA PLUS) TABLET (UD) PO SCH (22:12)
[2016-07-01] MEDS: METOCLOPRAMIDE HCL INJECTION 10 MG/2 ML VIAL IVPB SCH ×4 (03:15→19:55)
[2016-07-01] MEDS: PIPERACILLIN/TAZOB 3.375 GM/50 ML PRE-DOCKED IVPB SCH ×3 (06:18→17:16)
[2016-07-01] MEDS: LEVOTHYROXINE NA 50 MCG TABLET (FP) PO SCH (06:20)
[2016-07-01] MEDS: INSULIN DETEMIR 100 UNITS/ML MDV SQ SCH (06:20)
[2016-07-01] MEDS: INSULIN SLIDING SCALE (NOVOLOG) 1 VIAL SQ SCH ×4 (06:20→22:13)
[2016-07-01 07:18] LABS: BASOPHIL 0.7 % (0-2.0); EOSINOPHIL 2.2 % (0-4.5); MCH 28.3 pg (25.7-33.7); MCHC 31.6 g/dl (32.0-36.0); MEAN CELL VOLUME 89.5 fl (80-96); MEAN PLT VOLUME 7.9 fl (7.5-11.1); NEUTROPHILS 80.7 % (42.8-82.8); PLATELET COUNT 201 K/MM3 (134-434); RDW 16.4 % (11.6-15.6)
[2016-07-01 07:59] LABS: ALBUMIN 1.9 g/dl (3.4-5.0); ANION GAP 12 (8-16); CALCIUM 7.6 mg/dL (8.5-10.1); CO2 29 mmol/L (21-32); CREATININE 2.9 mg/dL (0.55-1.02); GLUCOSE,RANDOM 109 mg/dL (74-106); MAGNESIUM 2.1 mg/dL (1.8-2.4); PHOSPHOROUS 5.2 mg/dL (2.5-4.9); SGOT/AST 5 U/L (15-37); SGPT/ALT < 6 U/L (12-78)
[2016-07-01 08:01] LABS: ALK PHOS 77 U/L (45-117); BILIRUBIN,TOTAL 0.7 mg/dL (0.2-1.0); TOT PROT 5.9 g/dl (6.4-8.2)
--- NOTE | 2016-07-01 08:35 | PN ---
Progress Note, Physician Chief Complaint: Worsening L foot gangrene and pain, d/w pt might need amputation remains on BIPAP; also NGT to suctioning d/w vascular sx dr Alonso pt will most likely need amputation BKA but will be defficult to close stump b/o legs edema; d/w cardio dr Mora, pulm dr Camacho and renal dr Mcnamara; pt is high risk for respiratory failure and worsening renal failure requiring intubation, dyalsis, after the procedure but might become imperative to have it done; d/w pt, d/w pt's sisters Patricia [phone] and Guerline [phone] also d/w palliative care to f/u with pt for goals of care - Current Medication List Current Medications: Active Medications Al Hydroxide/Mg Hydroxide (Mylanta Oral Suspension -) 30 ml PO BID ON [facility] OF [facility] Last Admin: 06/30/16 22:11 Dose: 30 ml Albuterol Sulfate (Ventolin 0.083% Nebulizer Soln -) 1 amp NEB Q6H PRN PRN Reason: SHORT OF BREATH/WHEEZING Last Admin: 06/29/16 11:30 Dose: 1 amp Aspirin (Ecotrin -) 81 mg PO DAILY ON [facility] OF [facility] Last Admin: 06/30/16 09:52 Dose: 81 mg Atorvastatin Calcium (Lipitor -) 20 mg PO HS ON [facility] OF [facility] Last Admin: 06/30/16 22:11 Dose: 20 mg Carvedilol (Coreg -) 3.125 mg PO BID ON [facility] Last Admin: 06/30/16 22:11 Dose: 3.125 mg Collagenase (Santyl -) 1 applic TP DAILY ON [facility] Last Admin: 06/30/16 10:06 Dose: 1 applic Cyanocobalamin (Vitamin B12 -) 1,000 mcg PO DAILY ON [facility] Last Admin: 06/30/16 09:53 Dose: 1,000 mcg Epoetin Dawood (Procrit -) 10,000 unit SQ Q7D ON [facility] OF [facility] Last Admin: 06/26/16 21:34 Dose: 10,000 unit Heparin Sodium (Porcine) (Heparin -) 5,000 unit SQ BID ON [facility] Last Admin: 06/30/16 22:11 Dose: 5,000 unit Sodium Chloride (Normal Saline -) 1,000 mls @ 42 mls/hr IV ASDIR ON [facility] OF [facility] Last Admin: 06/30/16 04:30 Dose: 42 mls/hr Amino Acids (Clinimix -) 1,000 mls @ 42 mls/hr IV Q23H ON LICENSE OF [facility] Insulin Aspart (Novolog Vial Sliding Scale -) 1 vial SQ ACHS ON LICENSE OF [facility] PRN Reason: Protocol Last Admin: 07/01/16 06:20 Dose: Not Given Insulin Detemir (Levemir Vial) 20 units SQ DAILY@0700 ON [facility] Last Admin: 07/01/16 06:20 Dose: Not Given Isosorbide Mononitrate (Imdur -) 30 mg PO DAILY ON [facility] Last Admin: 06/30/16 09:52 Dose: 30 mg Levothyroxine Sodium (Synthroid -) 50 mcg PO DAILY@0700 ON [facility] Last Admin: 07/01/16 06:20 Dose: 50 mcg Lidocaine (Lidoderm Patch -) 1 patch TP DAILY ON [facility] Last Admin: 06/30/16 10:05 Dose: 1 patch Metoclopramide HCl (Reglan Injection -) 10 mg IVPB Q6H ON [facility] OF [facility] Last Admin: 07/01/16 03:15 Dose: 10 mg Morphine Sulfate (Morphine Injection -) 1 mg IM Q6H PRN PRN Reason: PAIN Last Admin: 06/30/16 22:12 Dose: 1 mg Nystatin (Mycostatin Cream -) 1 applic TP BID ON [facility] Last Admin: 06/30/16 22:11 Dose: 1 applic Ondansetron HCl (Zofran Injection) 8 mg IVPB Q6H PRN PRN Reason: NAUSEA AND/OR VOMITING Last Admin: 06/27/16 06:46 Dose: 8 mg Oxycodone HCl (Roxicodone -) 5 mg PO Q4H PRN PRN Reason: PAIN LEVEL 6-10 Last Admin: 06/27/16 10:40 Dose: 5 mg Pantoprazole Sodium (Protonix 40mg Ivpb (Pre-Docked)) 40 mg IVPB BID ON [facility] OF [facility] Last Admin: 06/30/16 22:12 Dose: 40 mg Piperacillin Sod/Tazobactam Sod (Zosyn 3.375gm Ivpb (Pre-Docked)) 3.375 gm IVPB Q8H-IV JESÚS PRN Reason: Protocol Last Admin: 07/01/16 06:18 Dose: 3.375 gm Polyethylene Glycol (Miralax (For Daily Use) -) 17 gm PO DAILY ON [facility] Last Admin: 06/30/16 09:53 Dose: 17 grams Senna/Docusate Sodium (Pericolace -) 2 tablet PO HS ON [facility] OF [facility] Last Admin: 06/30/16 22:12 Dose: 2 tablet Simethicone (Mylicon -) 80 mg PO QID ON [facility] OF [facility] Last Admin: 06/30/16 22:10 Dose: 80 mg - Objective Vital Signs: Vital Signs Temperature 98.0 F 07/01/16 06:00 Pulse Rate 70 07/01/16 06:00 Respiratory Rate 20 07/01/16 06:00 Blood Pressure 127/60 07/01/16 06:00 O2 Sat by Pulse Oximetry (%) 96 07/01/16 06:47 Constitutional: Yes: Anxious Eyes: Yes: Conjunctiva Clear HENT: Yes: Atraumatic Neck: Yes: Supple Cardiovascular: Yes: Regular Rate and Rhythm Respiratory: Yes: Diminished Gastrointestinal: Yes: Soft. No: Distention, Tenderness Musculoskeletal: No: Joint Stiffness, Joint Swelling Extremities: No: Cold, Cool Edema: Yes Integumentary: Yes: Rash, Venous Stasis Changes Wound/Incision: Yes: Dressing Dry and Intact Neurological: Yes: Alert, Oriented Psychiatric: Yes: Alert, Oriented. No: Agitated Labs: CBC, BMP 07/01/16 05:35 07/01/16 05:35 INR, PTT INR 1.37 (0.82-1.09) H 06/27/16 06:30 - ....Imaging Other: Report Reviewed Assessment/Plan The patient is a 71 year old female with significant past medical history of hypertension, hyperlipidemia, diabetes, CAD, CHF, MIx2, COPD (O2 dependent 2L), and renal insufficiency who presents to the emergency department sent from wound care by Dr. Alonso for further evaluation of a left lower extremity wound. Nonhealing after ATB and HBO tx. Pt nonambulatory for years skilled nursing NHR; DNR DNI active issues: L foot gangrene; ARF on CRF, anemia gastroparesis vomiting; respiratory failure volume overload; cardio, GI, renal f/u NGT; NPO, s/p PRBC and IVF; on clinimix iv 42 cc/h IV ATB per ID; wound care per vascular sx; d/w pt she might need amputation - high risk for intraop / postop complications as above gastric DVT aspiration PFX pain meds IM f/u labs and xrays prognosis guarded d/w pt and staff and pt's family see above; t time 40 min
[2016-07-01] MEDS: AMINO ACIDS 4.25%/D5W 1,000 ML IV SCH (09:29)
[2016-07-01] MEDS: PANTOPRAZOLE SODIUM 40 MG/100 ML PRE-DOCKED IVPB SCH ×2 (09:29→21:54)
--- NOTE | 2016-07-01 09:33 | PN ---
Progress Note, Physician Chief Complaint: resp failure History of Present Illness: she denies sob but cpap mask bothering her no cp legs swollen--? at baseline no palpitations no cigs - Current Medication List Current Medications: Active Medications Al Hydroxide/Mg Hydroxide (Mylanta Oral Suspension -) 30 ml PO BID [facility] Last Admin: 06/30/16 22:11 Dose: 30 ml Albuterol Sulfate (Ventolin 0.083% Nebulizer Soln -) 1 amp NEB Q6H PRN PRN Reason: SHORT OF BREATH/WHEEZING Last Admin: 06/29/16 11:30 Dose: 1 amp Aspirin (Ecotrin -) 81 mg PO DAILY [facility] Last Admin: 06/30/16 09:52 Dose: 81 mg Atorvastatin Calcium (Lipitor -) 20 mg PO HS [facility] Last Admin: 06/30/16 22:11 Dose: 20 mg Carvedilol (Coreg -) 3.125 mg PO BID [facility] Last Admin: 06/30/16 22:11 Dose: 3.125 mg Collagenase (Santyl -) 1 applic TP DAILY [facility] Last Admin: 06/30/16 10:06 Dose: 1 applic Cyanocobalamin (Vitamin B12 -) 1,000 mcg PO DAILY [facility] Last Admin: 06/30/16 09:53 Dose: 1,000 mcg Epoetin Dawood (Procrit -) 10,000 unit SQ Q7D [facility] Last Admin: 06/26/16 21:34 Dose: 10,000 unit Heparin Sodium (Porcine) (Heparin -) 5,000 unit SQ BID [facility] Last Admin: 06/30/16 22:11 Dose: 5,000 unit Sodium Chloride (Normal Saline -) 1,000 mls @ 42 mls/hr IV ASDIR [facility] Last Admin: 06/30/16 04:30 Dose: 42 mls/hr Amino Acids (Clinimix -) 1,000 mls @ 42 mls/hr IV Q23H [facility] Insulin Aspart (Novolog Vial Sliding Scale -) 1 vial SQ ACHS [facility] PRN Reason: Protocol Last Admin: 07/01/16 06:20 Dose: Not Given Insulin Detemir (Levemir Vial) 20 units SQ DAILY@0700 [facility] Last Admin: 07/01/16 06:20 Dose: Not Given Isosorbide Mononitrate (Imdur -) 30 mg PO DAILY [facility] Last Admin: 06/30/16 09:52 Dose: 30 mg Levothyroxine Sodium (Synthroid -) 50 mcg PO DAILY@0700 [facility] Last Admin: 07/01/16 06:20 Dose: 50 mcg Lidocaine (Lidoderm Patch -) 1 patch TP DAILY [facility] Last Admin: 06/30/16 10:05 Dose: 1 patch Metoclopramide HCl (Reglan Injection -) 10 mg IVPB Q6H [facility] Last Admin: 07/01/16 03:15 Dose: 10 mg Morphine Sulfate (Morphine Injection -) 1 mg IM Q6H PRN PRN Reason: PAIN Last Admin: 06/30/16 22:12 Dose: 1 mg Nystatin (Mycostatin Cream -) 1 applic TP BID [facility] Last Admin: 06/30/16 22:11 Dose: 1 applic Ondansetron HCl (Zofran Injection) 8 mg IVPB Q6H PRN PRN Reason: NAUSEA AND/OR VOMITING Last Admin: 06/27/16 06:46 Dose: 8 mg Oxycodone HCl (Roxicodone -) 5 mg PO Q4H PRN PRN Reason: PAIN LEVEL 6-10 Last Admin: 06/27/16 10:40 Dose: 5 mg Pantoprazole Sodium (Protonix 40mg Ivpb (Pre-Docked)) 40 mg IVPB BID [facility] Last Admin: 06/30/16 22:12 Dose: 40 mg Piperacillin Sod/Tazobactam Sod (Zosyn 3.375gm Ivpb (Pre-Docked)) 3.375 gm IVPB Q8H-IV JESÚS PRN Reason: Protocol Last Admin: 07/01/16 06:18 Dose: 3.375 gm Polyethylene Glycol (Miralax (For Daily Use) -) 17 gm PO DAILY [facility] Last Admin: 06/30/16 09:53 Dose: 17 grams Senna/Docusate Sodium (Pericolace -) 2 tablet PO HS [facility] Last Admin: 06/30/16 22:12 Dose: 2 tablet Simethicone (Mylicon -) 80 mg PO QID [facility] Last Admin: 06/30/16 22:10 Dose: 80 mg - Objective Vital Signs: Vital Signs Temperature 98.0 F 07/01/16 06:00 Pulse Rate 70 07/01/16 06:00 Respiratory Rate 20 07/01/16 06:00 Blood Pressure 127/60 07/01/16 06:00 O2 Sat by Pulse Oximetry (%) 96 07/01/16 06:47 Constitutional: Yes: No Distress, Calm, Obese Eyes: No: Sclera Icterus HENT: No: Nasal Congestion Cardiovascular: Yes: Regular Rate and Rhythm, S1, S2, Other (PMI non diplaced). No: JVD (tds habitus/cpap mask), Gallop, Murmur Respiratory: Yes: CTA Bilaterally. No: Accessory Muscle Use Gastrointestinal: Yes: Normal Bowel Sounds (tds exam (++ obese)), Soft. No: Tenderness Musculoskeletal: Yes: Other (No kyphosis) Extremities: No: Cold Edema: Yes (bilat nonpitting) Integumentary: No: Jaundice Neurological: Yes: Alert, Oriented (x3) Psychiatric: No: Agitated Labs: CBC, BMP 07/01/16 05:35 07/01/16 05:35 INR, PTT INR 1.37 (0.82-1.09) H 06/27/16 06:30 - ....Imaging EKG: Other (tele: NSR; brief run SVT likely PAT) Assessment/Plan Echo 07/11: mild-mod decr EF--global; nl RV; mild LAE; mild-mod MR/TR; RVSP 30-40 ; small peric effusion; + pleural eff echo 12/06/15: mild lvh. nl lv/rv, Septal motion c/w RV volume overload. Ab diastology. mild cheryl, mild-mod mr, mild as, mod-sev tr, rvsp 50, mod pericardial eff, no tamponade. pleural effusion. echo 12/11/15: focused, Nl lv. trivial pericardial eff. Pleural effusion. EKG 06/27/16: sr, nl intervals, nonspecific tw changes, no sig change prior tele: SB 50's-60's a/p: 71 yo with h/o HFpEF, CAD s/p PA, HTN, HL, pHTN, MIRIAM, o2 dep't copd, CKD, IDDM, hypothyroid and chronic LLE cellulitis, here with non healing left foot wound/gangrene. chronic foot wound, s/p OR debridement 06/06/16: -now returns with worsening wound, gangrene -plan per vascular surgery/ID chronic HFpEF/pulm HTN/venous ins'y/chronic resp failure/acute hypoxic resp failure here: - 06/2015 with mild-mod dec EF, but most recently with nl LV function on 12/11 echo. - pt with volume overload during mult prior admits here--vol status is always [id number] to assess given morbidly obese neck hiding JVD, chronic venous ins'y/lymphedema of legs, and chronically very abnormal CXR markings due to overlying soft tissue - cr well above baseline here, patient vomiting/NPO with NGT in, suspected CRISTELA from anemia/infection per renal -cont holding diuretics and cautious fluids as doing -requiring CPAP here - Repeat echo (NOTE: SHE HAS HAD SUSPECTED RV DILATION ALREADY ON SOME OF HER PRIOR ECHOES, SO IF DILATED NOW MUST COMPARE TO PRIOR). -pt with mult RFs for PE but creat prohibitive for IV contrast, and she cannot currently cooperate with V/Q; d/w'd dr daily who feels cause of her current decompensation is more likely sec to exacerbation of her chronic lung disease; -will check LE duplex though expect will be TDS PSVT: -likely brief run of ATach on tele -cont tele monitoring, low dose coreg for now as doing (change to metoprolol if runs become frequent) CAD, h/o NSTEMI: - has previously refused stress tests. h/o NSTEMI x 2 (2012, 2014) in setting of demand (sepsis/anemia) -MATEO deferred previously due to labile creat's--no change; -cath previously deferred due to: pt preference; hi risk of vascular complications (obese habitus), hi risk of BERNARDINO, and h/o recurrent anemia, possible occult GIB - currently without anginal sx's. EKG unchanged. Con't statin, coreg, asa, imdur CKD/cristela: - baseline creat 1.7-2.0 - renal fxn progressively worsening here--suspected hypoperfusion from cellulitis/anemia - renal following - gently hydrating due to hypoxia with ? fluid overload (as above) anemia: -chronic, baseline runs 8s-9s; -freq acute drops/PRBCs in past; currently near baseline HTN: -controlled -3/4-3/5 with persistent bradycardia--decreased carvedilol to 6.25 mg, then to to 3.125 mg bid gastroparesis: -s/p ngt -GI following
[2016-07-01] MEDS: SIMETHICONE 80 MG TAB.CHEW (FP) PO SCH ×4 (10:24→21:54)
[2016-07-01] MEDS: ASPIRIN COATED 81 MG TABLET.EC PO SCH (10:24)
[2016-07-01] MEDS: CARVEDILOL 3.125 MG TABLET (FP) PO SCH ×2 (10:24→21:52)
[2016-07-01] MEDS: ISOSORBIDE MONONITRATE 30 MG TAB.SR.24H (FP) PO SCH (10:24)
[2016-07-01] MEDS: CYANOCOBALAMIN 1,000 MCG TABLET (FP) PO SCH (10:24)
[2016-07-01] MEDS: HEPARIN NA (PORCINE) 5,000 UNITS/ML 1ML VIAL SQ SCH ×2 (10:24→22:16)
[2016-07-01] MEDS: MAG HYDROX/AL HYDROX/SIMETH 30 ML UNIT-DOSE CUP PO SCH ×2 (10:24→23:07)
[2016-07-01] MEDS: LIDOCAINE 5% TOPICAL PATCH TP SCH (10:24)
[2016-07-01] MEDS: POLYETHYLENE GLYCOL 3350 119 GM BTL PO SCH (10:25)
[2016-07-01] MEDS: NYSTATIN 100,000 UNIT/GM TOPICAL CREAM 15 GM TUBE TP SCH ×2 (10:25→22:09)
[2016-07-01] MEDS: COLLAGENASE CLOSTRIDIUM HIST. 30 GRAMS TUBE TP SCH (10:26)
--- NOTE | 2016-07-01 10:52 | PN ---
Progress Note, Physician History of Present Illness: PULMONARY LETHARGIC ON BIPAP. PT NOTED TO HAVE PROGRESSIVE GANGRENE TOES LLE - Current Medication List Current Medications: Active Medications Al Hydroxide/Mg Hydroxide (Mylanta Oral Suspension -) 30 ml PO BID [facility] Last Admin: 07/01/16 10:24 Dose: 30 ml Albuterol Sulfate (Ventolin 0.083% Nebulizer Soln -) 1 amp NEB Q6H PRN PRN Reason: SHORT OF BREATH/WHEEZING Last Admin: 06/29/16 11:30 Dose: 1 amp Aspirin (Ecotrin -) 81 mg PO DAILY [facility] Last Admin: 07/01/16 10:24 Dose: 81 mg Atorvastatin Calcium (Lipitor -) 20 mg PO HS [facility] Last Admin: 06/30/16 22:11 Dose: 20 mg Carvedilol (Coreg -) 3.125 mg PO BID [facility] Last Admin: 07/01/16 10:24 Dose: 3.125 mg Collagenase (Santyl -) 1 applic TP DAILY [facility] Last Admin: 07/01/16 10:26 Dose: 1 applic Cyanocobalamin (Vitamin B12 -) 1,000 mcg PO DAILY [facility] Last Admin: 07/01/16 10:24 Dose: 1,000 mcg Epoetin Dawood (Procrit -) 10,000 unit SQ Q7D [facility] Last Admin: 06/26/16 21:34 Dose: 10,000 unit Heparin Sodium (Porcine) (Heparin -) 5,000 unit SQ BID [facility] Last Admin: 07/01/16 10:24 Dose: 5,000 unit Sodium Chloride (Normal Saline -) 1,000 mls @ 42 mls/hr IV ASDIR [facility] Last Admin: 06/30/16 04:30 Dose: 42 mls/hr Amino Acids (Clinimix -) 1,000 mls @ 42 mls/hr IV Q23H [facility] Last Admin: 07/01/16 09:29 Dose: 42 mls/hr Insulin Aspart (Novolog Vial Sliding Scale -) 1 vial SQ ACHS [facility] PRN Reason: Protocol Last Admin: 07/01/16 06:20 Dose: Not Given Insulin Detemir (Levemir Vial) 20 units SQ DAILY@0700 [facility] Last Admin: 07/01/16 06:20 Dose: Not Given Isosorbide Mononitrate (Imdur -) 30 mg PO DAILY [facility] Last Admin: 07/01/16 10:24 Dose: 30 mg Levothyroxine Sodium (Synthroid -) 50 mcg PO DAILY@0700 [facility] Last Admin: 07/01/16 06:20 Dose: 50 mcg Lidocaine (Lidoderm Patch -) 1 patch TP DAILY [facility] Last Admin: 07/01/16 10:24 Dose: 1 patch Metoclopramide HCl (Reglan Injection -) 10 mg IVPB Q6H [facility] Last Admin: 07/01/16 09:29 Dose: 10 mg Morphine Sulfate (Morphine Injection -) 1 mg IM Q6H PRN PRN Reason: PAIN Last Admin: 06/30/16 22:12 Dose: 1 mg Nystatin (Mycostatin Cream -) 1 applic TP BID [facility] Last Admin: 07/01/16 10:25 Dose: 1 applic Ondansetron HCl (Zofran Injection) 8 mg IVPB Q6H PRN PRN Reason: NAUSEA AND/OR VOMITING Last Admin: 06/27/16 06:46 Dose: 8 mg Oxycodone HCl (Roxicodone -) 5 mg PO Q4H PRN PRN Reason: PAIN LEVEL 6-10 Last Admin: 06/27/16 10:40 Dose: 5 mg Pantoprazole Sodium (Protonix 40mg Ivpb (Pre-Docked)) 40 mg IVPB BID [facility] Last Admin: 07/01/16 09:29 Dose: 40 mg Piperacillin Sod/Tazobactam Sod (Zosyn 3.375gm Ivpb (Pre-Docked)) 3.375 gm IVPB Q8H-IV [facility] PRN Reason: Protocol Last Admin: 07/01/16 09:29 Dose: 3.375 gm Polyethylene Glycol (Miralax (For Daily Use) -) 17 gm PO DAILY [facility] Last Admin: 07/01/16 10:25 Dose: 17 grams Senna/Docusate Sodium (Pericolace -) 2 tablet PO HS [facility] Last Admin: 06/30/16 22:12 Dose: 2 tablet Simethicone (Mylicon -) 80 mg PO QID [facility] Last Admin: 07/01/16 10:24 Dose: 80 mg - Objective Vital Signs: Vital Signs Temperature 98.2 F 07/01/16 10:00 Pulse Rate 62 07/01/16 10:00 Respiratory Rate 18 07/01/16 10:00 Blood Pressure 134/80 07/01/16 10:00 O2 Sat by Pulse Oximetry (%) 96 07/01/16 06:47 Constitutional: Yes: Other (LETHARGIC) Eyes: Yes: WNL HENT: Yes: WNL Neck: Yes: WNL Cardiovascular: Yes: Regular Rate and Rhythm, S1, S2 Respiratory: Yes: Diminished, Rhonchi (FEW SCATTERED RHONCHI) Gastrointestinal: Yes: Normal Bowel Sounds, Soft Extremities: Yes: WNL, Other (PROGRESSIVE GANGRENE LEFT FOOT) Edema: Yes Labs: CBC, BMP 07/01/16 05:35 07/01/16 05:35 INR, PTT INR 1.37 (0.82-1.09) H 06/27/16 06:30 Laboratory Tests 06/30/16 11:00 ABG pH 7.34 L ABG pCO2 at Pt Temp 49.5 H D ABG pO2 at Pt Temp 71.8 D ABG HCO3 26.0 ABG O2 Sat (Measured) 93.6 Oxygen Flow Rate 30% Mechanical Rate Bipap Pressure Support Vent Ipap 14/epap 6 - ....Imaging Chest X-ray: Report Reviewed, Image Reviewed (LESS CONGESTION JANELLE) Assessment/Plan Problem List - Problems (1) Acute on chronic renal failure Code(s): N17.9 - ACUTE KIDNEY FAILURE, UNSPECIFIED N18.9 - CHRONIC KIDNEY DISEASE, UNSPECIFIED (2) CO2 retention Code(s): E87.2 - ACIDOSIS (3) Diabetes Code(s): E11.9 - TYPE 2 DIABETES MELLITUS WITHOUT COMPLICATIONS (4) Fluid overload Code(s): E87.70 - FLUID OVERLOAD, UNSPECIFIED (5) Gangrene Code(s): I96 - GANGRENE, NOT ELSEWHERE CLASSIFIED LIKELY OSAS COFFEE GROUND EMESIS ACUTE ON CHRONIC HYPOXEMIC/HYPERCAPNEIC RESPIRATORY FAILURE Assessment/Plan INHALED BRONCHODILATORS O2 DVT PROPHYLAXSIS BIPAP PRN F/U ABGs f/u CHEST X-RAY MONITOR H+H MONITOR LYTES,RENAL FUNCTION ALTHOUGH PT IS A VERY HIGH RISK FOR INTRA AND POST OP PULMONARY COMPLICATIONS ( RESPIRATORY FAILURE),SHE REQUIRES LEFT BKA SECONDARY TO WORSENING GANGRENE AND RISK FOR SEPSIS. DR LANDA
[2016-07-01] MEDS: oxyCODONE HCL 5 MG TABLET PO PRN (13:11)
--- NOTE | 2016-07-01 13:53 | PN ---
Progress Note, Physician History of Present Illness: C/O foot pain at times Afebrile WBC WNL - Current Medication List Current Medications: Active Medications Al Hydroxide/Mg Hydroxide (Mylanta Oral Suspension -) 30 ml PO BID [facility] Last Admin: 07/01/16 10:24 Dose: 30 ml Albuterol Sulfate (Ventolin 0.083% Nebulizer Soln -) 1 amp NEB Q6H PRN PRN Reason: SHORT OF BREATH/WHEEZING Last Admin: 06/29/16 11:30 Dose: 1 amp Aspirin (Ecotrin -) 81 mg PO DAILY [facility] Last Admin: 07/01/16 10:24 Dose: 81 mg Atorvastatin Calcium (Lipitor -) 20 mg PO HS [facility] Last Admin: 06/30/16 22:11 Dose: 20 mg Carvedilol (Coreg -) 3.125 mg PO BID [facility] Last Admin: 07/01/16 10:24 Dose: 3.125 mg Collagenase (Santyl -) 1 applic TP DAILY [facility] Last Admin: 07/01/16 10:26 Dose: 1 applic Cyanocobalamin (Vitamin B12 -) 1,000 mcg PO DAILY [facility] Last Admin: 07/01/16 10:24 Dose: 1,000 mcg Epoetin Dawood (Procrit -) 10,000 unit SQ Q7D [facility] Last Admin: 06/26/16 21:34 Dose: 10,000 unit Heparin Sodium (Porcine) (Heparin -) 5,000 unit SQ BID [facility] Last Admin: 07/01/16 10:24 Dose: 5,000 unit Sodium Chloride (Normal Saline -) 1,000 mls @ 42 mls/hr IV ASDIR [facility] Last Admin: 06/30/16 04:30 Dose: 42 mls/hr Amino Acids (Clinimix -) 1,000 mls @ 42 mls/hr IV Q23H [facility] Last Admin: 07/01/16 09:29 Dose: 42 mls/hr Insulin Aspart (Novolog Vial Sliding Scale -) 1 vial SQ ACHS [facility] PRN Reason: Protocol Last Admin: 07/01/16 12:09 Dose: Not Given Insulin Detemir (Levemir Vial) 20 units SQ DAILY@0700 [facility] Last Admin: 07/01/16 06:20 Dose: Not Given Isosorbide Mononitrate (Imdur -) 30 mg PO DAILY [facility] Last Admin: 07/01/16 10:24 Dose: 30 mg Levothyroxine Sodium (Synthroid -) 50 mcg PO DAILY@0700 [facility] Last Admin: 07/01/16 06:20 Dose: 50 mcg Lidocaine (Lidoderm Patch -) 1 patch TP DAILY [facility] Last Admin: 07/01/16 10:24 Dose: 1 patch Metoclopramide HCl (Reglan Injection -) 10 mg IVPB Q6H [facility] Last Admin: 07/01/16 13:10 Dose: 10 mg Morphine Sulfate (Morphine Injection -) 1 mg IM Q6H PRN PRN Reason: PAIN Last Admin: 06/30/16 22:12 Dose: 1 mg Nystatin (Mycostatin Cream -) 1 applic TP BID [facility] Last Admin: 07/01/16 10:25 Dose: 1 applic Ondansetron HCl (Zofran Injection) 8 mg IVPB Q6H PRN PRN Reason: NAUSEA AND/OR VOMITING Last Admin: 06/27/16 06:46 Dose: 8 mg Oxycodone HCl (Roxicodone -) 5 mg PO Q4H PRN PRN Reason: PAIN LEVEL 6-10 Last Admin: 07/01/16 13:11 Dose: 5 mg Pantoprazole Sodium (Protonix 40mg Ivpb (Pre-Docked)) 40 mg IVPB BID [facility] Last Admin: 07/01/16 09:29 Dose: 40 mg Piperacillin Sod/Tazobactam Sod (Zosyn 3.375gm Ivpb (Pre-Docked)) 3.375 gm IVPB Q8H-IV [facility] PRN Reason: Protocol Last Admin: 07/01/16 09:29 Dose: 3.375 gm Polyethylene Glycol (Miralax (For Daily Use) -) 17 gm PO DAILY [facility] Last Admin: 07/01/16 10:25 Dose: 17 grams Senna/Docusate Sodium (Pericolace -) 2 tablet PO HS [facility] Last Admin: 06/30/16 22:12 Dose: 2 tablet Simethicone (Mylicon -) 80 mg PO QID [facility] Last Admin: 07/01/16 13:11 Dose: 80 mg - Objective Vital Signs: Vital Signs Temperature 98.2 F 07/01/16 10:00 Pulse Rate 71 07/01/16 10:35 Respiratory Rate 18 07/01/16 10:00 Blood Pressure 134/80 07/01/16 10:00 O2 Sat by Pulse Oximetry (%) 88 L 07/01/16 10:35 Constitutional: Yes: No Distress, Obese Cardiovascular: Yes: Regular Rate and Rhythm, S1, S2 Respiratory: Yes: Diminished Gastrointestinal: Yes: Normal Bowel Sounds, Soft. No: Tenderness Extremities: Yes: Other (+ dry gangene L foot) Labs: CBC, BMP 07/01/16 05:35 07/01/16 05:35 INR, PTT INR 1.37 (0.82-1.09) H 06/27/16 06:30 Assessment/Plan Dry gangrene L foot Hx recurrent cellulitis LE Azotemia Continue empiric zosyn For amputation
--- NOTE | 2016-07-01 14:25 | PN ---
Physical Exam: SUBJECTIVE: Patient seen and examined Patient resting in korin, mild distress. NG tube still putting out 100 cc bilious fluid, on BIPAP since sat. afebrile and hemodynamically stable. states she diesnt feel well and is thirsty. states she is not sob. OBJECTIVE: Vital Signs Period Temp Pulse Resp BP Sys/Hagan Pulse Ox Last 24 Hr 97.5 F-98.2 F 62-72 18-22 110-147/48-80 88-99 GENERAL: Awake, alert, and fully oriented, in no acute distress. HEAD: Normal with no signs of trauma. EYES: Pupils equal, round and reactive to light, extraocular movements intact, sclera anicteric, conjunctiva clear. EARS, NOSE, THROAT: Moist mucous membranes. NG tube in place, bilious drainage NECK: supple without masses. LUNGS: reduced breath sounds at bases b/l HEART: Regular rate and rhythm, normal S1 and S2 ABDOMEN: Soft, nontender, not distended, normoactive bowel sounds, no guarding, no rebound, no masses. No hepatomegaly or splenomegaly. MUSCULOSKELETAL: Normal range of motion at all joints. No bony deformities or tenderness. No CVA tenderness. UPPER EXTREMITIES: 2+ pulses, No cyanosis LOWER EXTREMITIES: L foot, gangrenous toe and exposed tendon NEUROLOGICAL: Cranial nerves II-XII grossly intact. Normal speech. PSYCHIATRIC: Cooperative. Good eye contact SKIN: Warm, dry, Laboratory Results - last 24 hr 06/26/16 06/30/16 06/30/16 13:26 17:01 23:02 WBC RBC Hgb Hct MCV MCHC RDW Plt Count MPV Neutrophils % Lymphocytes % Monocytes % Eosinophils % Basophils % Sodium Potassium Chloride Carbon Dioxide Anion Gap BUN Creatinine Creat Clearance w eGFR POC Glucometer 123 120 Random Glucose Calcium Phosphorus Magnesium Total Bilirubin AST ALT Alkaline Phosphatase Total Protein Albumin Blood Type O POSITIVE Antibody Screen Positive H Antibody Identification TNP Crossmatch See Detail 07/01/16 07/01/16 07/01/16 05:35 05:35 06:22 WBC 9.0 RBC 3.19 L Hgb 9.0 L Hct 28.5 L MCV 89.5 MCHC 31.6 L RDW 16.4 H Plt Count 201 MPV 7.9 Neutrophils % 80.7 Lymphocytes % 6.3 L D Monocytes % 10.1 Eosinophils % 2.2 Basophils % 0.7 Sodium 140 Potassium 4.3 Chloride 99 Carbon Dioxide 29 Anion Gap 12 BUN 95 H Creatinine 2.9 H Creat Clearance w eGFR 15.95 POC Glucometer 119 Random Glucose 109 H Calcium 7.6 L Phosphorus 5.2 H Magnesium 2.1 Total Bilirubin 0.7 AST 5 L ALT < 6 L Alkaline Phosphatase 77 Total Protein 5.9 L Albumin 1.9 L Blood Type Antibody Screen Antibody Identification Crossmatch 07/01/16 12:06 WBC RBC Hgb Hct MCV MCHC RDW Plt Count MPV Neutrophils % Lymphocytes % Monocytes % Eosinophils % Basophils % Sodium Potassium Chloride Carbon Dioxide Anion Gap BUN Creatinine Creat Clearance w eGFR POC Glucometer 108 Random Glucose Calcium Phosphorus Magnesium Total Bilirubin AST ALT Alkaline Phosphatase Total Protein Albumin Blood Type Antibody Screen Antibody Identification Crossmatch Active Medications Generic Name Dose Route Start Last Admin Trade Name Freq PRN Reason Stop Dose Admin Al Hydroxide/Mg Hydroxide 30 ml 06/26/16 22:00 07/01/16 10:24 Mylanta Oral Suspension - PO 30 ml BID JESÚS Administration Albuterol Sulfate 1 amp 06/26/16 18:17 06/29/16 11:30 Ventolin 0.083% Nebulizer Soln - NEB 1 amp Q6H PRN Administration SHORT OF BREATH/WHEEZING Aspirin 81 mg 06/27/16 10:00 07/01/16 10:24 Ecotrin - PO 81 mg DAILY JESÚS Administration Atorvastatin Calcium 20 mg 06/26/16 22:00 06/30/16 22:11 Lipitor - PO 20 mg HS JESÚS Administration Carvedilol 3.125 mg 06/30/16 22:00 07/01/16 10:24 Coreg - PO 3.125 mg BID JESÚS Administration Collagenase 1 applic 06/26/16 16:00 07/01/16 10:26 Santyl - TP 1 applic DAILY JESÚS Administration Cyanocobalamin 1,000 mcg 06/27/16 10:00 07/01/16 10:24 Vitamin B12 - PO 1,000 mcg DAILY JESÚS Administration Epoetin Dawood 10,000 unit 06/26/16 19:00 06/26/16 21:34 Procrit - SQ 10,000 unit Q7D JESÚS Administration Heparin Sodium (Porcine) 5,000 unit 06/26/16 22:00 07/01/16 10:24 Heparin - SQ 5,000 unit BID JESÚS Administration Amino Acids 1,000 mls @ 42 mls/hr 07/01/16 07:00 07/01/16 09:29 Clinimix - IV 42 mls/hr Q23H JESÚS Administration Insulin Aspart 1 vial 06/26/16 22:00 07/01/16 12:09 Novolog Vial Sliding Scale - SQ Not Given ACHS [facility] Protocol Insulin Detemir 20 units 06/27/16 07:00 07/01/16 06:20 Levemir Vial SQ Not Given DAILY@0700 JESÚS Isosorbide Mononitrate 30 mg 06/27/16 10:00 07/01/16 10:24 Imdur - PO 30 mg DAILY JESÚS Administration Levothyroxine Sodium 50 mcg 06/27/16 07:00 07/01/16 06:20 Synthroid - PO 50 mcg DAILY@0700 JESÚS Administration Lidocaine 1 patch 06/27/16 10:00 07/01/16 10:24 Lidoderm Patch - TP 1 patch DAILY JESÚS Administration Metoclopramide HCl 10 mg 06/29/16 13:45 07/01/16 13:10 Reglan Injection - IVPB 10 mg Q6H JESÚS Administration Morphine Sulfate 1 mg 06/30/16 10:54 06/30/16 22:12 Morphine Injection - IM 1 mg Q6H PRN Administration PAIN Nystatin 1 applic 06/26/16 22:00 07/01/16 10:25 Mycostatin Cream - TP 1 applic BID JESÚS Administration Ondansetron HCl 8 mg 06/26/16 22:03 06/27/16 06:46 Zofran Injection IVPB 8 mg Q6H PRN Administration NAUSEA AND/OR VOMITING Oxycodone HCl 5 mg 06/26/16 18:34 07/01/16 13:11 Roxicodone - PO 5 mg Q4H PRN Administration PAIN LEVEL 6-10 Pantoprazole Sodium 40 mg 06/27/16 22:00 07/01/16 09:29 Protonix 40mg Ivpb (Pre-Docked) IVPB 40 mg BID JESÚS Administration Piperacillin Sod/Tazobactam Sod 3.375 gm 06/26/16 18:00 07/01/16 09:29 Zosyn 3.375gm Ivpb (Pre-Docked) IVPB 3.375 gm Q8H-IV JESÚS Administration Protocol Polyethylene Glycol 17 gm 06/27/16 10:00 03/06/17 10:25 Miralax (For Daily Use) - PO 17 grams DAILY JESÚS Administration Senna/Docusate Sodium 2 tablet 06/26/16 22:00 06/30/16 22:12 Pericolace - PO 2 tablet HS JESÚS Administration Simethicone 80 mg 06/26/16 22:00 07/01/16 13:11 Mylicon - PO 80 mg QID JESÚS Administration ASSESSMENT/PLAN: This is a 71 year old female [facility] resident, with a PMH of COPD (O2 dependant 2L), CAD, CHF, [place] x2, HTN, HLD, renal insufficiency, DM COPD/ acute on chronic respiratory failure -possible superimposed URI -CXR slightly improved -albuterol -BIPAP -outpatient sleep study Diabetic foot infection -gangrene of toe -ID: kyhetal marissaangejose manuel -vascular planning amputation DM -levemir, novolog Coffee [place] emesis -PPI IV -NGT -GI consult CRISTELA -acute on chronic (CKD) -renal consult Dispo: We will continue to follow the patient. Thank you for this consultative opportunity. Problem List - Problems (1) CO2 retention Code(s): E87.2 - ACIDOSIS (2) Diabetes Code(s): E11.9 - TYPE 2 DIABETES MELLITUS WITHOUT COMPLICATIONS (3) Gangrene Code(s): I96 - GANGRENE, NOT ELSEWHERE CLASSIFIED (4) CRISTELA (acute kidney injury) Code(s): N17.9 - ACUTE KIDNEY FAILURE, UNSPECIFIED (5) COPD (chronic obstructive pulmonary disease) Code(s): J44.9 - CHRONIC OBSTRUCTIVE PULMONARY DISEASE, UNSPECIFIED Qualifiers : COPD type: unspecified COPD Qualified Code(s): J44.9 - Chronic obstructive pulmonary disease, unspecified (6) Cellulitis Code(s): L03.90 - CELLULITIS, UNSPECIFIED (7) Diastolic CHF Code(s): I50.30 - UNSPECIFIED DIASTOLIC (CONGESTIVE) HEART FAILURE Qualifiers : Congestive heart failure chronicity: acute on chronic Qualified Code(s) : I50.33 - Acute on chronic diastolic (congestive) heart failure Visit type - Emergency Visit Emergency Visit: Yes ED Registration Date: 06/26/16 Care time: The patient presented to the Emergency Department on the above date and was hospitalized for further evaluation of their emergent condition. - New Patient This patient is new to me today: No - Critical Care Critical Care patient: No - Discharge Referral Referred to [facility] No
--- NOTE | 2016-07-01 15:14 | PN ---
Progress Note (short form) - Note Progress Note: Renal follow up for CRISTELA on CKD Pt seen and examined at the bedside remains on BIPAP no sob or chest pain has pain in the foot NGT remains in place Vital Signs Temperature 97.5 F L 07/01/16 14:56 Pulse Rate 70 07/01/16 14:56 Respiratory Rate 20 07/01/16 14:56 Blood Pressure 130/58 07/01/16 14:56 O2 Sat by Pulse Oximetry (%) 88 L 07/01/16 10:35 Intake & Output 06/28/16 06/29/16 06/30/16 07/01/16 23:59 23:59 23:59 23:59 Intake Total 1090 1330 1250 620 Output Total 100 300 Balance 990 1030 1250 620 Weight 300 lb 8 oz 297 lb 1 oz 299 lb 4.8 oz 299 lb Gen: NAD, NGT in place CVS: RRR, No M/R Lungs: CTA, No rales or wheeze Abd: soft, Obese, mild tenderness, + distension Ext: No edema, clubbing or cyanosis : No bladder distension CBC, BMP 07/01/16 05:35 07/01/16 05:35 Current Medications Al Hydroxide/Mg Hydroxide (Mylanta Oral Suspension -) 30 ml PO BID [facility] Last Admin: 07/01/16 10:24 Dose: 30 ml Albuterol Sulfate (Ventolin 0.083% Nebulizer Soln -) 1 amp NEB Q6H PRN PRN Reason: SHORT OF BREATH/WHEEZING Last Admin: 06/29/16 11:30 Dose: 1 amp Aspirin (Ecotrin -) 81 mg PO DAILY [facility] Last Admin: 07/01/16 10:24 Dose: 81 mg Atorvastatin Calcium (Lipitor -) 20 mg PO HS [facility] Last Admin: 06/30/16 22:11 Dose: 20 mg Carvedilol (Coreg -) 3.125 mg PO BID [facility] Last Admin: 07/01/16 10:24 Dose: 3.125 mg Collagenase (Santyl -) 1 applic TP DAILY [facility] Last Admin: 07/01/16 10:26 Dose: 1 applic Cyanocobalamin (Vitamin B12 -) 1,000 mcg PO DAILY [facility] Last Admin: 07/01/16 10:24 Dose: 1,000 mcg Epoetin Dawood (Procrit -) 10,000 unit SQ Q7D [facility] Last Admin: 06/26/16 21:34 Dose: 10,000 unit Heparin Sodium (Porcine) (Heparin -) 5,000 unit SQ BID [facility] Last Admin: 07/01/16 10:24 Dose: 5,000 unit Amino Acids (Clinimix -) 1,000 mls @ 42 mls/hr IV Q23H [facility] Last Admin: 07/01/16 09:29 Dose: 42 mls/hr Insulin Aspart (Novolog Vial Sliding Scale -) 1 vial SQ ACHS [facility] PRN Reason: Protocol Last Admin: 07/01/16 12:09 Dose: Not Given Insulin Detemir (Levemir Vial) 20 units SQ DAILY@0700 [facility] Last Admin: 07/01/16 06:20 Dose: Not Given Isosorbide Mononitrate (Imdur -) 30 mg PO DAILY [facility] Last Admin: 07/01/16 10:24 Dose: 30 mg Levothyroxine Sodium (Synthroid -) 50 mcg PO DAILY@0700 [facility] Last Admin: 07/01/16 06:20 Dose: 50 mcg Lidocaine (Lidoderm Patch -) 1 patch TP DAILY [facility] Last Admin: 07/01/16 10:24 Dose: 1 patch Metoclopramide HCl (Reglan Injection -) 10 mg IVPB Q6H [facility] Last Admin: 07/01/16 13:10 Dose: 10 mg Morphine Sulfate (Morphine Injection -) 1 mg IM Q6H PRN PRN Reason: PAIN Last Admin: 06/30/16 22:12 Dose: 1 mg Nystatin (Mycostatin Cream -) 1 applic TP BID [facility] Last Admin: 07/01/16 10:25 Dose: 1 applic Ondansetron HCl (Zofran Injection) 8 mg IVPB Q6H PRN PRN Reason: NAUSEA AND/OR VOMITING Last Admin: 06/27/16 06:46 Dose: 8 mg Oxycodone HCl (Roxicodone -) 5 mg PO Q4H PRN PRN Reason: PAIN LEVEL 6-10 Last Admin: 07/01/16 13:11 Dose: 5 mg Pantoprazole Sodium (Protonix 40mg Ivpb (Pre-Docked)) 40 mg IVPB BID [facility] Last Admin: 07/01/16 09:29 Dose: 40 mg Piperacillin Sod/Tazobactam Sod (Zosyn 3.375gm Ivpb (Pre-Docked)) 3.375 gm IVPB Q8H-IV JESÚS PRN Reason: Protocol Last Admin: 07/01/16 09:29 Dose: 3.375 gm Polyethylene Glycol (Miralax (For Daily Use) -) 17 gm PO DAILY [facility] Last Admin: 07/01/16 10:25 Dose: 17 grams Senna/Docusate Sodium (Pericolace -) 2 tablet PO HS [facility] Last Admin: 06/30/16 22:12 Dose: 2 tablet Simethicone (Mylicon -) 80 mg PO QID [facility] Last Admin: 07/01/16 13:11 Dose: 80 mg A/p 71 year old Woman with PMhx of CKD, CHF, Morbid Obesity, IDDM, Anemia who presented with worsening LE wounds and found to have CRISTELA with BUN/Cr of 90/2.5. #CRISTELA on CKD with Anasarca BUN/Cr stable yesterday to today Urine output is undocumented as pt is incontinent Pt still appears volume depleted given high BUN/Cr ratio, lower BP and poor oral intake will plan to increase IVF rate to 100cc per hour for the next 24 hours Trend BUN/Cr had disussion with pt about the possibility of dialysis if she were not to recover renal function, she understands and said she will think bout it avoid nsaids, IV contrast if possible Thank you Lambert Mcnamara
[2016-07-01] MEDS ORDERED: SODIUM CHLORIDE 1,000 ML IV SCH (15:30)
--- NOTE | 2016-07-01 19:45 | PN ---
Progress Note (short form) - Note Progress Note: Vascular Surgery Pt seen and examined. 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 High creatinine at 2.9. Unable to do angio at this time. Can try CO2 angio. Pt understands she might need bka. However pt is so edematous, that it might be very difficult to close bka stump at this time. Foot is stable for now. Can try CO2 angio on fri. Gaurav Alonso DO
[2016-07-01] MEDS: SENNOSIDES/DOCUSATE COMBO (SENNA PLUS) TABLET (UD) PO SCH (21:53)
[2016-07-01] MEDS: ATORVASTATIN CA 20 MG TABLET (FP) PO SCH (23:08)
[2016-07-02] MEDS: METOCLOPRAMIDE HCL INJECTION 10 MG/2 ML VIAL IVPB SCH ×4 (01:07→19:53)
[2016-07-02] MEDS: PIPERACILLIN/TAZOB 3.375 GM/50 ML PRE-DOCKED IVPB SCH ×3 (01:20→17:33)
[2016-07-02] MEDS: ALBUTEROL SO4 0.083% IH SOL 2.5 MG/3 ML VIAL.NEB. NEB PRN ×2 (06:00)
[2016-07-02] MEDS: AMINO ACIDS 4.25%/D5W 1,000 ML IV SCH ×2 (06:11→17:34)
[2016-07-02] MEDS: LEVOTHYROXINE NA 50 MCG TABLET (FP) PO SCH (06:12)
[2016-07-02] MEDS: INSULIN SLIDING SCALE (NOVOLOG) 1 VIAL SQ SCH ×4 (06:12→22:58)
[2016-07-02] MEDS: INSULIN DETEMIR 100 UNITS/ML MDV SQ SCH (06:13)
[2016-07-02 07:33] LABS: BASOPHIL 0.9 % (0-2.0); EOSINOPHIL 1.8 % (0-4.5); MCH 28.3 pg (25.7-33.7); MCHC 31.4 g/dl (32.0-36.0); MEAN CELL VOLUME 90.1 fl (80-96); MEAN PLT VOLUME 8.3 fl (7.5-11.1); NEUTROPHILS 80.9 % (42.8-82.8); PLATELET COUNT 182 K/MM3 (134-434); RDW 16.6 % (11.6-15.6); WHITE BLOOD COUNT 8.8 K/mm3 (4.0-10.0)
[2016-07-02 08:08] LABS: ALBUMIN 1.8 g/dl (3.4-5.0); CALCIUM 7.5 mg/dL (8.5-10.1); CREATININE 2.7 mg/dL (0.55-1.02)
[2016-07-02 08:09] LABS: BILIRUBIN,TOTAL 0.7 mg/dL (0.2-1.0); TOT PROT 5.8 g/dl (6.4-8.2)
[2016-07-02] MEDS: CYANOCOBALAMIN 1,000 MCG TABLET (FP) PO SCH (09:55)
[2016-07-02] MEDS: HEPARIN NA (PORCINE) 5,000 UNITS/ML 1ML VIAL SQ SCH ×2 (09:55→22:23)
[2016-07-02] MEDS: oxyCODONE HCL 5 MG TABLET PO PRN ×2 (09:55→23:21)
[2016-07-02] MEDS: ISOSORBIDE MONONITRATE 30 MG TAB.SR.24H (FP) PO SCH (09:55)
[2016-07-02] MEDS: MAG HYDROX/AL HYDROX/SIMETH 30 ML UNIT-DOSE CUP PO SCH ×2 (09:55→22:28)
[2016-07-02] MEDS: ASPIRIN COATED 81 MG TABLET.EC PO SCH (09:55)
[2016-07-02] MEDS: CARVEDILOL 3.125 MG TABLET (FP) PO SCH ×2 (09:55→22:24)
[2016-07-02] MEDS: LIDOCAINE 5% TOPICAL PATCH TP SCH (09:55)
[2016-07-02] MEDS: PANTOPRAZOLE SODIUM 40 MG/100 ML PRE-DOCKED IVPB SCH ×2 (09:56→22:21)
[2016-07-02] MEDS: SIMETHICONE 80 MG TAB.CHEW (FP) PO SCH ×4 (09:57→22:22)
[2016-07-02] MEDS: NYSTATIN 100,000 UNIT/GM TOPICAL CREAM 15 GM TUBE TP SCH ×2 (09:57→22:21)
[2016-07-02] MEDS: POLYETHYLENE GLYCOL 3350 119 GM BTL PO SCH (09:57)
[2016-07-02] MEDS: COLLAGENASE CLOSTRIDIUM HIST. 30 GRAMS TUBE TP SCH (09:58)
--- NOTE | 2016-07-02 10:05 | PN ---
Progress Note (short form) - Note Progress Note: Chief Complaint: resp failure History of Present Illness: she denies sob. has been off bipap since this morning no cp, dizziness, palps no cigs Current Medications Al Hydroxide/Mg Hydroxide (Mylanta Oral Suspension -) 30 ml PO BID [facility] Last Admin: 07/01/16 23:07 Dose: 30 ml Albuterol Sulfate (Ventolin 0.083% Nebulizer Soln -) 1 amp NEB Q6H PRN PRN Reason: SHORT OF BREATH/WHEEZING Last Admin: 07/02/16 06:00 Dose: 1 amp Aspirin (Ecotrin -) 81 mg PO DAILY [facility] Last Admin: 07/01/16 10:24 Dose: 81 mg Atorvastatin Calcium (Lipitor -) 20 mg PO HS [facility] Last Admin: 07/01/16 23:08 Dose: 20 mg Carvedilol (Coreg -) 3.125 mg PO BID [facility] Last Admin: 07/01/16 21:52 Dose: 3.125 mg Collagenase (Santyl -) 1 applic TP DAILY [facility] Last Admin: 07/01/16 10:26 Dose: 1 applic Cyanocobalamin (Vitamin B12 -) 1,000 mcg PO DAILY [facility] Last Admin: 07/01/16 10:24 Dose: 1,000 mcg Epoetin Dawood (Procrit -) 10,000 unit SQ Q7D [facility] Last Admin: 06/26/16 21:34 Dose: 10,000 unit Heparin Sodium (Porcine) (Heparin -) 5,000 unit SQ BID [facility] Last Admin: 07/01/16 22:16 Dose: 5,000 unit Amino Acids (Clinimix -) 1,000 mls @ 42 mls/hr IV Q23H [facility] Last Admin: 07/02/16 06:11 Dose: Not Given Sodium Chloride (Normal Saline -) 1,000 mls @ 60 mls/hr IV ASDIR [facility] Stop: 07/02/16 15:29 Last Admin: 07/01/16 16:30 Dose: 60 mls/hr Insulin Aspart (Novolog Vial Sliding Scale -) 1 vial SQ ACHS [facility] PRN Reason: Protocol Last Admin: 07/02/16 06:12 Dose: Not Given Insulin Detemir (Levemir Vial) 20 units SQ DAILY@0700 [facility] Last Admin: 07/02/16 06:13 Dose: Not Given Isosorbide Mononitrate (Imdur -) 30 mg PO DAILY [facility] Last Admin: 07/01/16 10:24 Dose: 30 mg Levothyroxine Sodium (Synthroid -) 50 mcg PO DAILY@0700 [facility] Last Admin: 07/02/16 06:12 Dose: 50 mcg Lidocaine (Lidoderm Patch -) 1 patch TP DAILY [facility] Last Admin: 07/01/16 10:24 Dose: 1 patch Metoclopramide HCl (Reglan Injection -) 10 mg IVPB Q6H [facility] Last Admin: 07/02/16 01:07 Dose: 10 mg Morphine Sulfate (Morphine Injection -) 1 mg IM Q6H PRN PRN Reason: PAIN Last Admin: 06/30/16 22:12 Dose: 1 mg Nystatin (Mycostatin Cream -) 1 applic TP BID [facility] Last Admin: 07/01/16 22:09 Dose: 1 applic Ondansetron HCl (Zofran Injection) 8 mg IVPB Q6H PRN PRN Reason: NAUSEA AND/OR VOMITING Last Admin: 06/27/16 06:46 Dose: 8 mg Oxycodone HCl (Roxicodone -) 5 mg PO Q4H PRN PRN Reason: PAIN LEVEL 6-10 Last Admin: 07/01/16 13:11 Dose: 5 mg Pantoprazole Sodium (Protonix 40mg Ivpb (Pre-Docked)) 40 mg IVPB BID [facility] Last Admin: 07/01/16 21:54 Dose: 40 mg Piperacillin Sod/Tazobactam Sod (Zosyn 3.375gm Ivpb (Pre-Docked)) 3.375 gm IVPB Q8H-IV [facility] PRN Reason: Protocol Last Admin: 07/02/16 01:20 Dose: 3.375 gm Polyethylene Glycol (Miralax (For Daily Use) -) 17 gm PO DAILY [facility] Last Admin: 07/01/16 10:25 Dose: 17 grams Senna/Docusate Sodium (Pericolace -) 2 tablet PO HS [facility] Last Admin: 07/01/16 21:53 Dose: 2 tablet Simethicone (Mylicon -) 80 mg PO QID [facility] Last Admin: 07/01/16 21:54 Dose: 80 mg Vital Signs - 24 hr 07/01/16 07/01/16 07/01/16 10:30 10:35 14:56 Temperature 97.5 F L Pulse Rate 71 70 Respiratory 20 Rate Blood Pressure 130/58 O2 Sat by Pulse 88 L 88 L Oximetry (%) 07/01/16 07/01/16 07/01/16 17:25 18:00 21:00 Temperature 97.7 F Pulse Rate 73 Respiratory 20 Rate Blood Pressure 124/54 O2 Sat by Pulse 96 95 Oximetry (%) 07/01/16 07/02/16 07/02/16 22:00 02:00 06:00 Temperature 98.4 F 97.5 F L 97.8 F Pulse Rate 73 74 75 Respiratory 18 18 18 Rate Blood Pressure 135/74 142/91 139/68 O2 Sat by Pulse 95 Oximetry (%) 07/02/16 08:05 Temperature 98.2 F Pulse Rate 74 Respiratory 18 Rate Blood Pressure 124/70 O2 Sat by Pulse Oximetry (%) Intake & Output 06/30/16 07/01/16 07/02/16 07/03/16 07:59 07:59 07:59 07:59 Intake Total 1670 1070 2304 Output Total 100 100 Balance 1570 1070 2204 Weight 299 lb 4.8 oz 299 lb 299 lb 11.2 oz Constitutional: Yes: No Distress, Calm, Obese Eyes: No: Sclera Icterus HENT: No: Nasal Congestion Cardiovascular: Yes: Regular Rate and Rhythm, S1, S2, Other (PMI displaced). No: JVD (tds habitus,) 2/6 sys murmur at apex Gallop Respiratory: Yes: diminished air movement, poor effort. No: Accessory Muscle Use Gastrointestinal: Yes: Normal Bowel Sounds (tds exam (++ obese)), Soft. No: Tenderness Musculoskeletal: Yes: Other (No kyphosis) Extremities: No: Cold Edema: Yes indurated and 1+ dependent edema to pannus Integumentary: No: Jaundice Neurological: Yes: Alert, Oriented (x3) Psychiatric: No: Agitated Labs: CBC, BMP 07/02/16 05:35 07/02/16 05:35 Laboratory Tests 07/02/16 05:35 Albumin 1.8 L - ....Imaging EKG: Other (tele: NSR; pvc's) Assessment/Plan Echo here 07/01/2016: Mild decr EF. paradoxical septal motion with mild HK of anteroseptum. RV not seen. 1+ mr/tr. mild (although MG only 12 mmHg). Echo 07/11: mild-mod decr EF--global; nl RV; mild LAE; mild-mod MR/TR; RVSP 30-40 ; small peric effusion; + pleural eff echo 12/06/15: mild lvh. nl lv/rv, Septal motion c/w RV volume overload. Ab diastology. mild cheryl, mild-mod mr, mild as, mod-sev tr, rvsp 50, mod pericardial eff, no tamponade. pleural effusion. echo 12/11/15: focused, Nl lv. trivial pericardial eff. Pleural effusion. EKG 06/27/16: sr, nl intervals, nonspecific tw changes, no sig change prior a/p: 71 yo with h/o HFpEF, CAD s/p WI, HTN, HL, pHTN, MIRIAM, o2 dep't copd, CKD, IDDM, hypothyroid and chronic LLE cellulitis, here with non healing left foot wound/gangrene. chronic foot wound, s/p OR debridement 06/06/16: -now returns with worsening wound, gangrene -plan per vascular surgery/ID. Currently may need BKA. Based on RCRI, bedridden functional status and tenuous pulmonary status is high risk for nichole- operative surgical complications. Will defer to surgery/pmd regarding urgency. Currently appears that it may be necessary to prevent further clinical decompensation. Discussed with renal, low likelihood that any significant improvement in lower extremity edema can be made in the short term. chronic HFpEF/pulm HTN/venous ins'y/chronic resp failure/acute hypoxic resp failure here: - pt with volume overload during mult prior admits here--vol status is always [id number] to assess given morbidly obese neck hiding JVD, chronic venous ins'y/lymphedema of legs, and chronically very abnormal CXR markings due to overlying soft tissue - cr well above baseline here, patient vomiting/NPO with NGT in, suspected CRISTELA from anemia/infection per renal -cont holding diuretics and cautious fluids as doing. Gross total body volume overload, may need ultrafiltration once acute issues resolve or if LE edema prevents surgical candidacy (although discussed with renal, unlikely that ultrafiltration prior to surgery would successfully mobilize extravascular fluid ). Con't IVF, mgm't per renal. -BIPAP prn per pulmonary. - Repeat echo --> unable to visualize RV. (NOTE: SHE HAS HAD SUSPECTED RV DILATION ALREADY ON SOME OF HER PRIOR ECHOES) -pt with mult RFs for PE but creat prohibitive for IV contrast, and she cannot currently cooperate with V/Q; d/w'd dr daily who feels cause of her current decompensation is more likely sec to exacerbation of her chronic lung disease; -will check LE duplex though expect will be TDS PSVT: -likely brief run of ATach on tele 07/01. no recurrence. -cont tele monitoring, low dose coreg for now as doing (dose had been lowered while here - change to metoprolol if runs become frequent) CAD, h/o NSTEMI: - has previously refused stress tests. h/o NSTEMI x 2 (2012, 2014) in setting of demand (sepsis/anemia) -MATEO deferred previously due to labile creat's--no change; -cath previously deferred due to: pt preference; hi risk of vascular complications (obese habitus), hi risk of BERNARDINO, and h/o recurrent anemia, possible occult GIB - currently without anginal sx's. EKG unchanged. Con't statin, coreg, asa, imdur CKD/cristela: - baseline creat 1.7-2.0 - renal fxn progressively worsening here--suspected hypoperfusion from cellulitis/anemia -- on IVF with slight improvement today 07/02. - renal following anemia: -chronic, baseline runs 8s-9s; -freq acute drops/PRBCs in past; currently near baseline HTN: -controlled -06/29-06/30 with persistent bradycardia--decreased carvedilol to 6.25 mg, then to to 3.125 mg bid. Now improved. gastroparesis: -s/p ngt -GI following
[2016-07-02] MEDS ORDERED: INSULIN DETEMIR 100 UNITS/ML MDV SQ SCH (10:25)
--- NOTE | 2016-07-02 10:27 | PN ---
Progress Note, Physician Chief Complaint: in bed seems axox3 nad afebrile; I d/w mary her current condition and options ; seems that her L foot gangrene is getting worse despite local wound care, hyperbaric O2 tx and strong IV ATB and the risk of sepsis in the near future is high; d/w surgery dr Alonso: not able to do angiogram given pt's body habitus; worsening gangrene requires BKA at this point. Risk of poor stump healing given her edema and diabetes d/w surgeon and the pt and her sisters. Intraop or postop possible complications like respiratory failure/ vent dependant, need for dyalsis, bleeding and sepsis d/w pt and her HCP sisters. Pt said that if she needs general az she agrees to be intubated during the procedure but if she won't be able to be extubated postop she would like compassionate weaning of the vent and comfort care only (no tracheostomy); d/w pt that if she needs dyalisis postop, [facility] might not be able to take her back and she said she will think about this after the surgery and if needed. Mary wants to go ahead with the surgery BKA because she has "too much pain in her leg" and because she does not want to become septic b/o the foot gangrene and she is willing to take the risks involved. She was non-ambulatory bed-bound for many years in [place]. D/w pt and her sisters about the above they all understand the risks and alternatives and they all agree at this point with the BKA> I also d/w surgery, cardio, pulm and renal consultants. - Current Medication List Current Medications: Active Medications Al Hydroxide/Mg Hydroxide (Mylanta Oral Suspension -) 30 ml PO BID [facility] Last Admin: 07/02/16 09:55 Dose: 30 ml Albuterol Sulfate (Ventolin 0.083% Nebulizer Soln -) 1 amp NEB Q6H PRN PRN Reason: SHORT OF BREATH/WHEEZING Last Admin: 07/02/16 06:00 Dose: 1 amp Aspirin (Ecotrin -) 81 mg PO DAILY [facility] Last Admin: 07/02/16 09:55 Dose: 81 mg Atorvastatin Calcium (Lipitor -) 20 mg PO HS [facility] Last Admin: 07/01/16 23:08 Dose: 20 mg Carvedilol (Coreg -) 3.125 mg PO BID [facility] Last Admin: 07/02/16 09:55 Dose: 3.125 mg Collagenase (Santyl -) 1 applic TP DAILY [facility] Last Admin: 07/02/16 09:58 Dose: 1 applic Cyanocobalamin (Vitamin B12 -) 1,000 mcg PO DAILY [facility] Last Admin: 07/02/16 09:55 Dose: 1,000 mcg Epoetin Dawood (Procrit -) 10,000 unit SQ Q7D [facility] Last Admin: 06/26/16 21:34 Dose: 10,000 unit Heparin Sodium (Porcine) (Heparin -) 5,000 unit SQ BID [facility] Last Admin: 07/02/16 09:55 Dose: 5,000 unit Amino Acids (Clinimix -) 1,000 mls @ 42 mls/hr IV Q23H [facility] Last Admin: 07/02/16 06:11 Dose: Not Given Sodium Chloride (Normal Saline -) 1,000 mls @ 60 mls/hr IV ASDIR [facility] Stop: 07/02/16 15:29 Last Admin: 07/01/16 16:30 Dose: 60 mls/hr Insulin Aspart (Novolog Vial Sliding Scale -) 1 vial SQ ACHS [facility] PRN Reason: Protocol Last Admin: 07/02/16 06:12 Dose: Not Given Insulin Detemir (Levemir Vial) 10 units SQ DAILY@0700 [facility] Isosorbide Mononitrate (Imdur -) 30 mg PO DAILY [facility] Last Admin: 07/02/16 09:55 Dose: 30 mg Levothyroxine Sodium (Synthroid -) 50 mcg PO DAILY@0700 [facility] Last Admin: 07/02/16 06:12 Dose: 50 mcg Lidocaine (Lidoderm Patch -) 1 patch TP DAILY [facility] Last Admin: 07/02/16 09:55 Dose: 1 patch Metoclopramide HCl (Reglan Injection -) 10 mg IVPB Q6H [facility] Last Admin: 07/02/16 09:55 Dose: 10 mg Morphine Sulfate (Morphine Injection -) 1 mg IM Q6H PRN PRN Reason: PAIN Last Admin: 06/30/16 22:12 Dose: 1 mg Nystatin (Mycostatin Cream -) 1 applic TP BID [facility] Last Admin: 07/02/16 09:57 Dose: 1 applic Ondansetron HCl (Zofran Injection) 8 mg IVPB Q6H PRN PRN Reason: NAUSEA AND/OR VOMITING Last Admin: 06/27/16 06:46 Dose: 8 mg Oxycodone HCl (Roxicodone -) 5 mg PO Q4H PRN PRN Reason: PAIN LEVEL 6-10 Last Admin: 07/02/16 09:55 Dose: 5 mg Pantoprazole Sodium (Protonix 40mg Ivpb (Pre-Docked)) 40 mg IVPB BID [facility] Last Admin: 07/02/16 09:56 Dose: 40 mg Piperacillin Sod/Tazobactam Sod (Zosyn 3.375gm Ivpb (Pre-Docked)) 3.375 gm IVPB Q8H-IV [facility] PRN Reason: Protocol Last Admin: 07/02/16 09:56 Dose: 3.375 gm Polyethylene Glycol (Miralax (For Daily Use) -) 17 gm PO DAILY [facility] Last Admin: 07/02/16 09:57 Dose: 17 grams Senna/Docusate Sodium (Pericolace -) 2 tablet PO HS [facility] Last Admin: 07/01/16 21:53 Dose: 2 tablet Simethicone (Mylicon -) 80 mg PO QID [facility] Last Admin: 07/02/16 09:57 Dose: 80 mg - Objective Vital Signs: Vital Signs Temperature 98.2 F 07/02/16 08:05 Pulse Rate 74 07/02/16 08:05 Respiratory Rate 18 07/02/16 08:05 Blood Pressure 124/70 07/02/16 08:05 O2 Sat by Pulse Oximetry (%) 95 07/01/16 22:00 Constitutional: Yes: No Distress, Calm Eyes: Yes: Conjunctiva Clear HENT: Yes: Atraumatic Neck: Yes: Supple Cardiovascular: Yes: Regular Rate and Rhythm Respiratory: Yes: Diminished Gastrointestinal: Yes: Soft, Abdomen, Obese. No: Distention, Tenderness Genitourinary: No: Hematuria Musculoskeletal: No: Joint Stiffness, Joint Swelling Extremities: No: Cold, Cool Edema: Yes Wound/Incision: Yes: Draining (L foot gangrene with serous DC , gaangrene extends to 3 fingers and dorsal aspect of the foot at this point) Neurological: Yes: Alert, Oriented. No: WNL ...Motor Strength: WNL (functional quadriparesis bedbound) Psychiatric: Yes: WNL, Alert, Oriented. No: Agitated, Suicidal Ideation Labs: CBC, BMP 07/02/16 05:35 07/02/16 05:35 INR, PTT INR 1.37 (0.82-1.09) H 06/27/16 06:30 - ....Imaging Chest X-ray: Report Reviewed X-ray: Report Reviewed Other: Report Reviewed Assessment/Plan The patient is a 71 year old female with significant past medical history of hypertension, hyperlipidemia, diabetes, CAD, CHF, MIx2, COPD (O2 dependent 2L), and renal insufficiency who presents to the emergency department sent from wound care by Dr. Alonso for further evaluation of a left lower extremity wound. Nonhealing after ATB and HBO tx. Pt nonambulatory for years halfway NHR; DNR DNI active issues: L foot gangrene; ARF on CRF, anemia gastroparesis vomiting; CIOPD respiratory failure, CHF volume overload; anemia; morbid obesity; cardio, GI, renal f/u NGT; NPO, s/p PRBC and IVF; on clinimix iv 42 cc/h IV ATB per ID; wound care per vascular sx; For BKA in am - high risk for intraop / postop complications as above labs, EKG, CXR postop gastric DVT aspiration PFX pain meds IM f/u labs and xrays prognosis guarded d/w pt and staff and pt's family see above; t time 45 min
--- NOTE | 2016-07-02 11:14 | PN ---
Progress Note, Physician History of Present Illness: pulmonary alert,on nasal o2,comfortable -tachypnea - Current Medication List Current Medications: Active Medications Al Hydroxide/Mg Hydroxide (Mylanta Oral Suspension -) 30 ml PO BID [facility] Last Admin: 07/02/16 09:55 Dose: 30 ml Albuterol Sulfate (Ventolin 0.083% Nebulizer Soln -) 1 amp NEB Q6H PRN PRN Reason: SHORT OF BREATH/WHEEZING Last Admin: 07/02/16 06:00 Dose: 1 amp Aspirin (Ecotrin -) 81 mg PO DAILY [facility] Last Admin: 07/02/16 09:55 Dose: 81 mg Atorvastatin Calcium (Lipitor -) 20 mg PO HS [facility] Last Admin: 07/01/16 23:08 Dose: 20 mg Carvedilol (Coreg -) 3.125 mg PO BID [facility] Last Admin: 07/02/16 09:55 Dose: 3.125 mg Collagenase (Santyl -) 1 applic TP DAILY [facility] Last Admin: 07/02/16 09:58 Dose: 1 applic Cyanocobalamin (Vitamin B12 -) 1,000 mcg PO DAILY [facility] Last Admin: 07/02/16 09:55 Dose: 1,000 mcg Epoetin Dawood (Procrit -) 10,000 unit SQ Q7D [facility] Last Admin: 06/26/16 21:34 Dose: 10,000 unit Heparin Sodium (Porcine) (Heparin -) 5,000 unit SQ BID [facility] Last Admin: 07/02/16 09:55 Dose: 5,000 unit Amino Acids (Clinimix -) 1,000 mls @ 42 mls/hr IV Q23H [facility] Last Admin: 07/02/16 06:11 Dose: Not Given Sodium Chloride (Normal Saline -) 1,000 mls @ 60 mls/hr IV ASDIR [facility] Stop: 07/02/16 15:29 Last Admin: 07/01/16 16:30 Dose: 60 mls/hr Insulin Aspart (Novolog Vial Sliding Scale -) 1 vial SQ ACHS [facility] PRN Reason: Protocol Last Admin: 07/02/16 06:12 Dose: Not Given Insulin Detemir (Levemir Vial) 10 units SQ DAILY@0700 [facility] Isosorbide Mononitrate (Imdur -) 30 mg PO DAILY [facility] Last Admin: 07/02/16 09:55 Dose: 30 mg Levothyroxine Sodium (Synthroid -) 50 mcg PO DAILY@0700 [facility] Last Admin: 07/02/16 06:12 Dose: 50 mcg Lidocaine (Lidoderm Patch -) 1 patch TP DAILY [facility] Last Admin: 07/02/16 09:55 Dose: 1 patch Metoclopramide HCl (Reglan Injection -) 10 mg IVPB Q6H [facility] Last Admin: 07/02/16 09:55 Dose: 10 mg Morphine Sulfate (Morphine Injection -) 1 mg IM Q6H PRN PRN Reason: PAIN Last Admin: 06/30/16 22:12 Dose: 1 mg Nystatin (Mycostatin Cream -) 1 applic TP BID [facility] Last Admin: 07/02/16 09:57 Dose: 1 applic Ondansetron HCl (Zofran Injection) 8 mg IVPB Q6H PRN PRN Reason: NAUSEA AND/OR VOMITING Last Admin: 06/27/16 06:46 Dose: 8 mg Oxycodone HCl (Roxicodone -) 5 mg PO Q4H PRN PRN Reason: PAIN LEVEL 6-10 Last Admin: 07/02/16 09:55 Dose: 5 mg Pantoprazole Sodium (Protonix 40mg Ivpb (Pre-Docked)) 40 mg IVPB BID [facility] Last Admin: 07/02/16 09:56 Dose: 40 mg Piperacillin Sod/Tazobactam Sod (Zosyn 3.375gm Ivpb (Pre-Docked)) 3.375 gm IVPB Q8H-IV [facility] PRN Reason: Protocol Last Admin: 07/02/16 09:56 Dose: 3.375 gm Polyethylene Glycol (Miralax (For Daily Use) -) 17 gm PO DAILY [facility] Last Admin: 07/02/16 09:57 Dose: 17 grams Senna/Docusate Sodium (Pericolace -) 2 tablet PO HS [facility] Last Admin: 07/01/16 21:53 Dose: 2 tablet Simethicone (Mylicon -) 80 mg PO QID [facility] Last Admin: 07/02/16 09:57 Dose: 80 mg - Objective Vital Signs: Vital Signs Temperature 98.2 F 07/02/16 08:05 Pulse Rate 74 07/02/16 08:05 Respiratory Rate 18 07/02/16 08:05 Blood Pressure 124/70 07/02/16 08:05 O2 Sat by Pulse Oximetry (%) 95 07/01/16 22:00 Constitutional: Yes: Well Nourished, Calm, Obese Eyes: Yes: WNL HENT: Yes: WNL Neck: Yes: WNL Cardiovascular: Yes: Regular Rate and Rhythm, S1, S2 Respiratory: Yes: Diminished Gastrointestinal: Yes: Normal Bowel Sounds, Abdomen, Obese Extremities: Yes: Other (left foot bandaged) Edema: Yes Labs: CBC, BMP 07/02/16 05:35 07/02/16 05:35 INR, PTT INR 1.37 (0.82-1.09) H 06/27/16 06:30 Assessment/Plan Problem List - Problems (1) Acute on chronic renal failure Code(s): N17.9 - ACUTE KIDNEY FAILURE, UNSPECIFIED N18.9 - CHRONIC KIDNEY DISEASE, UNSPECIFIED (2) CO2 retention Code(s): E87.2 - ACIDOSIS (3) Diabetes Code(s): E11.9 - TYPE 2 DIABETES MELLITUS WITHOUT COMPLICATIONS (4) Fluid overload Code(s): E87.70 - FLUID OVERLOAD, UNSPECIFIED (5) Gangrene Code(s): I96 - GANGRENE, NOT ELSEWHERE CLASSIFIED LIKELY OSAS COFFEE GROUND EMESIS ACUTE ON CHRONIC HYPOXEMIC/HYPERCAPNEIC RESPIRATORY FAILURE Assessment/Plan INHALED BRONCHODILATORS O2 DVT PROPHYLAXSIS BIPAP PRN F/U ABG on nasal O2 f/u CHEST X-RAYS MONITOR H+H MONITOR LYTES,RENAL FUNCTION ALTHOUGH PT IS A VERY HIGH RISK FOR INTRA AND POST OP PULMONARY COMPLICATIONS ( RESPIRATORY FAILURE),SHE REQUIRES LEFT BKA SECONDARY TO WORSENING GANGRENE AND RISK FOR SEPSIS. DR LANDA
[2016-07-02 12:33] LABS: ARTERIAL BLD GAS O2 SATURATION 98.4 % (90-98.9); ARTERIAL BLOOD GAS BASE EXCESS -0.9 meq/l (-2-2); ARTERIAL BLOOD GAS HCO3 24.2 meq/L (22-26); ARTERIAL BLOOD GAS pH 7.35 (7.35-7.45)
[2016-07-02 12:35] LABS: ALLENS TEST POSITIVE; ART PUNCT SITE LEFT RADIAL; LPM/O2% 3L; PT. ON O2? YES
[2016-07-02 12:36] LABS: TYPE OF O2 NASAL O2
--- NOTE | 2016-07-02 15:21 | PN ---
Progress Note (short form) - Note Progress Note: NAD Vital Signs Period Temp Pulse Resp BP Sys/Hagan Pulse Ox Last 24 Hr 97.5 F-98.4 F 73-75 18-20 124-142/54-91 95-98 cor-rrr lungs decreased bs at bases abd soft, foot bandaged CBC, BMP 07/02/16 05:35 07/02/16 05:35 Microbiology 06/26/16 13:26 Blood - Peripheral Venous Blood Culture - Final NO GROWTH AFTER 5 DAYS INCUBATION 06/26/16 13:26 Blood - Peripheral Venous Blood Culture - Final NO GROWTH AFTER 5 DAYS INCUBATION a/p diabetic foot infection gangrene cad anemia worsening ckd continue zosyn surgical f/u of foot
[2016-07-02] MEDS ORDERED: FUROSEMIDE 40 MG/4 ML INJECTABLE VIAL IVPUSH ONE (17:25)
--- NOTE | 2016-07-02 17:41 | PN ---
GI Progress Note Subjective: GASTROENTEROLOGY NGT WITH DARK GREEN NOT CLEAR RETURN 24 OUTPUT 100 TO 300 CC LAST TWO DAYS AXR STILL WITH DILATED BOWEL ON IV REGLAN PT HYPOTHYROID (TSH OVER 13) FOR POSSIBLE AMPUTATION TOMORROW - Objective Vital Signs: Vital Signs Temperature 98 F 07/02/16 14:00 Pulse Rate 76 07/02/16 14:00 Respiratory Rate 16 07/02/16 14:00 Blood Pressure 126/62 07/02/16 14:00 O2 Sat by Pulse Oximetry (%) 98 07/02/16 12:00 Constitutional: Obese Eyes: Yes: WNL HENT: Yes: Normocephalic, Other (NGT) Cardiovascular: Yes: Regular Rate and Rhythm Respiratory: Yes: Diminished Gastrointestinal Inspection: Yes: Distention ...Auscultate: Yes: Normoactive Bowel Sounds, Other (BOWEL WALL EDEMA) ...Percussion: Yes: Tympanitic Extremities: Yes: Amputation Edema: Yes Labs: CBC, BMP 07/02/16 05:35 07/02/16 05:35 INR, PTT INR 1.37 (0.82-1.09) H 06/27/16 06:30 Laboratory Tests 06/27/16 06/29/16 07/02/16 06:30 05:40 05:35 WBC 8.8 RBC 3.04 L Hgb 8.6 L Hct 27.4 L MCV 90.1 MCHC 31.4 L RDW 16.6 H Plt Count 182 INR 1.37 H Sodium Potassium Chloride Carbon Dioxide Anion Gap BUN Creatinine Creat Clearance w eGFR Random Glucose Total Bilirubin AST ALT Alkaline Phosphatase Total Protein Albumin TSH 13.30 H D 07/02/16 05:35 WBC RBC Hgb Hct MCV MCHC RDW Plt Count INR Sodium 139 Potassium 4.3 Chloride 99 Carbon Dioxide 29 Anion Gap 11 BUN 93 H Creatinine 2.7 H Creat Clearance w eGFR 17.32 Random Glucose 163 H D Total Bilirubin 0.7 AST 6 L ALT 6 L Alkaline Phosphatase 77 Total Protein 5.8 L Albumin 1.8 L TSH Problem List - Problems (1) Diabetic gastroparesis Assessment/Plan: ALSO COMPONENT OF HYPOTHYROIDISM (WILL DELAY IMPROVEMENT) FOR SURGERY TOMORROW/ CT SCAN WITH CONTRAST VIA NGT AFTER SURGERY AXR NOT TOO HELPFUL ENTIRE ABDOMEN NOT SEEN ON FILM Code(s): E11.43 - TYPE 2 DIABETES W DIABETIC AUTONOMIC (POLY)NEUROPATHY K31.84 - GASTROPARESIS (2) Acute on chronic renal failure Code(s): N17.9 - ACUTE KIDNEY FAILURE, UNSPECIFIED N18.9 - CHRONIC KIDNEY DISEASE, UNSPECIFIED (3) Diabetes Code(s): E11.9 - TYPE 2 DIABETES MELLITUS WITHOUT COMPLICATIONS (4) Fluid overload Code(s): E87.70 - FLUID OVERLOAD, UNSPECIFIED (5) Gangrene Code(s): I96 - GANGRENE, NOT ELSEWHERE CLASSIFIED (6) Pulmonary hypertension Code(s): I27.2 - OTHER SECONDARY PULMONARY HYPERTENSION (7) Ulcer of foot Code(s): L97.509 - NON-PRESSURE CHRONIC ULCER OTH PRT UNSP FOOT W UNSP SEVERITY Qualifiers: Qualified Code(s): L97.522 - Non-pressure chronic ulcer of other part of left foot with fat layer exposed (8) Anemia Code(s): D64.9 - ANEMIA, UNSPECIFIED Qualifiers: Qualified Code(s): D64.9 - Anemia, unspecified (9) CAD (coronary artery disease) Code(s): I25.10 - ATHSCL HEART DISEASE OF [place] CORONARY ARTERY W/O ANG PCTRS Qualifiers: Qualified Code(s): I25.10 - Atherosclerotic heart disease of [place] coronary artery without angina pectoris (10) CHF (congestive heart failure) Code(s): I50.9 - HEART FAILURE, UNSPECIFIED Qualifiers: Qualified Code(s): I50.9 - Heart failure, unspecified (11) Constipation Code(s): K59.00 - CONSTIPATION, UNSPECIFIED (12) MIRIAM (obstructive sleep apnea) Code(s): G47.33 - OBSTRUCTIVE SLEEP APNEA (ADULT) (PEDIATRIC) (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
--- NOTE | 2016-07-02 17:47 | PN ---
Progress Note (short form) - Note Progress Note: Vascular Surgery Pt seen and examined. Pt's body habitus will not allow angiogram. cannot see right groin. Evaluated foot -- gangrene with tendons exposed in forefoot, and upper foot near ankle with odor. The best procedure is a bka. CAn do bka rhiannon. Please optimize from medical and cardiology standpoint best possible. Pt is very high risk, due to all co-morbidities. spoke to pt at length about her wishes. she feels she wants to have amputation, as continues to get worse. Gaurav Alonso DO
--- NOTE | 2016-07-02 17:47 | PN ---
Progress Note (short form) - Note Progress Note: Renal follow up for CRISTELA on CKD Pt seen and examined at the bedside no acute complaints on NC O2 NGT in place Vital Signs Temperature 98 F 07/02/16 14:00 Pulse Rate 76 07/02/16 14:00 Respiratory Rate 16 07/02/16 14:00 Blood Pressure 126/62 07/02/16 14:00 O2 Sat by Pulse Oximetry (%) 98 07/02/16 12:00 Intake & Output 06/29/16 06/30/16 07/01/16 07/02/16 23:59 23:59 23:59 23:59 Intake Total 1330 1250 1520 1404 Output Total 300 100 Balance 1030 1250 1520 1304 Weight 297 lb 1 oz 299 lb 4.8 oz 299 lb 299 lb 11.2 oz Gen: NAD, NGT in place CVS: RRR, No M/R Lungs: CTA, No rales or wheeze Abd: soft, Obese, mild tenderness, + distension Ext: No edema, clubbing or cyanosis : No bladder distension CBC, BMP 07/02/16 05:35 07/02/16 05:35 Current Medications Al Hydroxide/Mg Hydroxide (Mylanta Oral Suspension -) 30 ml PO BID [facility] Last Admin: 07/02/16 09:55 Dose: 30 ml Albuterol Sulfate (Ventolin 0.083% Nebulizer Soln -) 1 amp NEB Q6H PRN PRN Reason: SHORT OF BREATH/WHEEZING Last Admin: 07/02/16 06:00 Dose: 1 amp Aspirin (Ecotrin -) 81 mg PO DAILY [facility] Last Admin: 07/02/16 09:55 Dose: 81 mg Atorvastatin Calcium (Lipitor -) 20 mg PO HS [facility] Last Admin: 07/01/16 23:08 Dose: 20 mg Carvedilol (Coreg -) 3.125 mg PO BID [facility] Last Admin: 07/02/16 09:55 Dose: 3.125 mg Collagenase (Santyl -) 1 applic TP DAILY [facility] Last Admin: 07/02/16 09:58 Dose: 1 applic Cyanocobalamin (Vitamin B12 -) 1,000 mcg PO DAILY [facility] Last Admin: 07/02/16 09:55 Dose: 1,000 mcg Epoetin Dawood (Procrit -) 10,000 unit SQ Q7D [facility] Last Admin: 06/26/16 21:34 Dose: 10,000 unit Heparin Sodium (Porcine) (Heparin -) 5,000 unit SQ BID [facility] Last Admin: 07/02/16 09:55 Dose: 5,000 unit Amino Acids (Clinimix -) 1,000 mls @ 42 mls/hr IV Q23H [facility] Last Admin: 07/02/16 06:11 Dose: Not Given Insulin Aspart (Novolog Vial Sliding Scale -) 1 vial SQ ACHS [facility] PRN Reason: Protocol Last Admin: 07/02/16 12:07 Dose: Not Given Insulin Detemir (Levemir Vial) 10 units SQ DAILY@0700 [facility] Isosorbide Mononitrate (Imdur -) 30 mg PO DAILY [facility] Last Admin: 07/02/16 09:55 Dose: 30 mg Levothyroxine Sodium (Synthroid -) 50 mcg PO DAILY@0700 [facility] Last Admin: 07/02/16 06:12 Dose: 50 mcg Lidocaine (Lidoderm Patch -) 1 patch TP DAILY [facility] Last Admin: 07/02/16 09:55 Dose: 1 patch Metoclopramide HCl (Reglan Injection -) 10 mg IVPB Q6H [facility] Last Admin: 07/02/16 09:55 Dose: 10 mg Morphine Sulfate (Morphine Injection -) 1 mg IM Q6H PRN PRN Reason: PAIN Last Admin: 06/30/16 22:12 Dose: 1 mg Nystatin (Mycostatin Cream -) 1 applic TP BID [facility] Last Admin: 07/02/16 09:57 Dose: 1 applic Ondansetron HCl (Zofran Injection) 8 mg IVPB Q6H PRN PRN Reason: NAUSEA AND/OR VOMITING Last Admin: 06/27/16 06:46 Dose: 8 mg Oxycodone HCl (Roxicodone -) 5 mg PO Q4H PRN PRN Reason: PAIN LEVEL 6-10 Last Admin: 07/02/16 09:55 Dose: 5 mg Pantoprazole Sodium (Protonix 40mg Ivpb (Pre-Docked)) 40 mg IVPB BID [facility] Last Admin: 07/02/16 09:56 Dose: 40 mg Piperacillin Sod/Tazobactam Sod (Zosyn 3.375gm Ivpb (Pre-Docked)) 3.375 gm IVPB Q8H-IV [facility] PRN Reason: Protocol Last Admin: 07/02/16 09:56 Dose: 3.375 gm Polyethylene Glycol (Miralax (For Daily Use) -) 17 gm PO DAILY [facility] Last Admin: 07/02/16 09:57 Dose: 17 grams Senna/Docusate Sodium (Pericolace -) 2 tablet PO HS [facility] Last Admin: 07/01/16 21:53 Dose: 2 tablet Simethicone (Mylicon -) 80 mg PO QID [facility] Last Admin: 07/02/16 09:57 Dose: 80 mg A/p 71 year old Woman with PMhx of CKD, CHF, Morbid Obesity, IDDM, Anemia who presented with worsening LE wounds and found to have CRISTELA with BUN/Cr of 90/2.5. #CRISTELA on CKD with Anasarca Renal function stable/slight improvement getting PRBC transfusion on IV Clinimix pt stated that she would not want dialysis if her renal function worsens continue to trend BUN/Cr no acute indication for DRIED FRUIT W[employer]ER continue to hold diuretics at this time Thank you Lambert Mcnamara
[2016-07-02] MEDS: SENNOSIDES/DOCUSATE COMBO (SENNA PLUS) TABLET (UD) PO SCH (22:22)
[2016-07-02] MEDS: ATORVASTATIN CA 20 MG TABLET (FP) PO SCH (22:23)
[2016-07-03] MEDS: METOCLOPRAMIDE HCL INJECTION 10 MG/2 ML VIAL IVPB SCH ×3 (01:45→15:38)
[2016-07-03] MEDS: PIPERACILLIN/TAZOB 3.375 GM/50 ML PRE-DOCKED IVPB SCH ×2 (02:11→10:22)
[2016-07-03] MEDS: ALBUTEROL SO4 0.083% IH SOL 2.5 MG/3 ML VIAL.NEB. NEB PRN (06:10)
[2016-07-03] MEDS: LEVOTHYROXINE NA 50 MCG TABLET (FP) PO SCH (06:11)
[2016-07-03] MEDS: AMINO ACIDS 4.25%/D5W 1,000 ML IV SCH (06:11)
[2016-07-03] MEDS: INSULIN SLIDING SCALE (NOVOLOG) 1 VIAL SQ SCH ×3 (06:13→23:26)
[2016-07-03 08:36] LABS: INR 1.28 (0.82-1.09); PROTHROMBIN TIME (PATIENT) 14.2 SEC (9.98-11.88)
[2016-07-03 08:37] LABS: ACTIVATED PTT 30.9 SECONDS (26.9-34.4)
[2016-07-03 08:39] LABS: BASOPHIL 1.3 % (0-2.0); EOSINOPHIL 2.2 % (0-4.5); MCH 28.2 pg (25.7-33.7); MCHC 31.6 g/dl (32.0-36.0); MEAN CELL VOLUME 89.2 fl (80-96); NEUTROPHILS 79.8 % (42.8-82.8); PLATELET COUNT 204 K/MM3 (134-434); RDW 16.6 % (11.6-15.6)
[2016-07-03] MEDS ORDERED: VANCOMYCIN 1,500 MG in DEXTROSE 5%-WATER - 250 ML IVPB ONE (08:40)
--- NOTE | 2016-07-03 08:49 | PN ---
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
[2016-07-03 09:25] LABS: ALBUMIN 1.9 g/dl (3.4-5.0); BILIRUBIN,TOTAL 0.7 mg/dL (0.2-1.0); CALCIUM 7.8 mg/dL (8.5-10.1); CREATININE 2.8 mg/dL (0.55-1.02); MAGNESIUM 2.2 mg/dL (1.8-2.4); TOT PROT 6.2 g/dl (6.4-8.2)
[2016-07-03] MEDS ORDERED: VANCOMYCIN 1,250 MG in DEXTROSE 5%-WATER - 250 ML IVPB ONE (10:00)
[2016-07-03] MEDS: oxyCODONE HCL 5 MG TABLET PO PRN (10:19)
[2016-07-03] MEDS: CYANOCOBALAMIN 1,000 MCG TABLET (FP) PO SCH (10:21)
[2016-07-03] MEDS: CARVEDILOL 3.125 MG TABLET (FP) PO SCH ×2 (10:21→23:38)
[2016-07-03] MEDS: LIDOCAINE 5% TOPICAL PATCH TP SCH (10:21)
[2016-07-03] MEDS: SIMETHICONE 80 MG TAB.CHEW (FP) PO SCH ×3 (10:34→22:18)
[2016-07-03] MEDS: MAG HYDROX/AL HYDROX/SIMETH 30 ML UNIT-DOSE CUP PO SCH ×2 (10:34→22:18)
[2016-07-03] MEDS: POLYETHYLENE GLYCOL 3350 119 GM BTL PO SCH (10:34)
--- NOTE | 2016-07-03 10:41 | PN ---
Progress Note (short form) - Note Progress Note: s: no cp sob palps dizzy Current Medications Generic Name Dose Route Start Last Admin Trade Name Freq PRN Reason Stop Dose Admin Al Hydroxide/Mg Hydroxide 30 ml 06/26/16 22:00 07/02/16 22:28 Mylanta Oral Suspension - PO 30 ml BID JESÚS Administration Albuterol Sulfate 1 amp 06/26/16 18:17 07/03/16 06:10 Ventolin 0.083% Nebulizer Soln - NEB 1 amp Q6H PRN Administration SHORT OF BREATH/WHEEZING Aspirin 81 mg 06/27/16 10:00 07/02/16 09:55 Ecotrin - PO 81 mg DAILY JESÚS Administration Atorvastatin Calcium 20 mg 06/26/16 22:00 07/02/16 22:23 Lipitor - PO 20 mg HS JESÚS Administration Carvedilol 3.125 mg 06/30/16 22:00 07/03/16 10:21 Coreg - PO 3.125 mg BID JESÚS Administration Collagenase 1 applic 06/26/16 16:00 07/02/16 09:58 Santyl - TP 1 applic DAILY JESÚS Administration Cyanocobalamin 1,000 mcg 06/27/16 10:00 07/03/16 10:21 Vitamin B12 - PO 1,000 mcg DAILY JESÚS Administration Epoetin Dawood 10,000 unit 06/26/16 19:00 06/26/16 21:34 Procrit - SQ 10,000 unit Q7D JESÚS Administration Heparin Sodium (Porcine) 5,000 unit 06/26/16 22:00 07/02/16 22:23 Heparin - SQ 5,000 unit BID JESÚS Administration Amino Acids 1,000 mls @ 42 mls/hr 07/01/16 07:00 07/03/16 06:11 Clinimix - IV Not Given Q23H [facility] Vancomycin HCl 1,250 mg/ 250 mls @ 166.667 mls/hr 07/03/16 10:00 Dextrose IVPB 07/03/16 11:29 ONCE ONE Protocol Insulin Aspart 1 vial 06/26/16 22:00 07/03/16 06:13 Novolog Vial Sliding Scale - SQ Not Given ACHS [facility] Protocol Insulin Detemir 10 units 07/02/16 10:25 07/03/16 06:12 Levemir Vial SQ Not Given DAILY@0700 [facility] Isosorbide Mononitrate 30 mg 06/27/16 10:00 07/02/16 09:55 Imdur - PO 30 mg DAILY JESÚS Administration Levothyroxine Sodium 50 mcg 06/27/16 07:00 07/03/16 06:11 Synthroid - PO Not Given DAILY@0700 JESÚS Lidocaine 1 patch 06/27/16 10:00 07/03/16 10:21 Lidoderm Patch - TP 1 patch DAILY JESÚS Administration Metoclopramide HCl 10 mg 06/29/16 13:45 07/03/16 01:45 Reglan Injection - IVPB 10 mg Q6H JESÚS Administration Morphine Sulfate 1 mg 06/30/16 10:54 06/30/16 22:12 Morphine Injection - IM 1 mg Q6H PRN Administration PAIN Nystatin 1 applic 06/26/16 22:00 07/02/16 22:21 Mycostatin Cream - TP 1 applic BID JESÚS Administration Ondansetron HCl 8 mg 06/26/16 22:03 06/27/16 06:46 Zofran Injection IVPB 8 mg Q6H PRN Administration NAUSEA AND/OR VOMITING Oxycodone HCl 5 mg 06/26/16 18:34 07/03/16 10:19 Roxicodone - PO 5 mg Q4H PRN Administration PAIN LEVEL 6-10 Pantoprazole Sodium 40 mg 06/27/16 22:00 07/02/16 22:21 Protonix 40mg Ivpb (Pre-Docked) IVPB 40 mg BID JESÚS Administration Piperacillin Sod/Tazobactam Sod 3.375 gm 06/26/16 18:00 07/03/16 10:22 Zosyn 3.375gm Ivpb (Pre-Docked) IVPB 3.375 gm Q8H-IV JESÚS Administration Protocol Polyethylene Glycol 17 gm 06/27/16 10:00 07/02/16 09:57 Miralax (For Daily Use) - PO 17 grams DAILY JESÚS Administration Senna/Docusate Sodium 2 tablet 06/26/16 22:00 07/02/16 22:22 Pericolace - PO 2 tablet HS JESÚS Administration Simethicone 80 mg 06/26/16 22:00 07/02/16 22:22 Mylicon - PO 80 mg QID JESÚS Administration Vital Signs Period Temp Pulse Resp BP Sys/Hagan Pulse Ox Last 24 Hr 97.8 F-98.0 F 62-86 16-20 101-145/43-62 98-99 Constitutional: Yes: No Distress, Calm, Obese Eyes: No: Sclera Icterus Cardiovascular: Yes: Regular Rate and Rhythm, S1, S2, Other (PMI displaced). No: JVD (tds habitus,) 2/6 sys murmur at apex Gallop Respiratory: Yes: diminished air movement, poor effort. No: Accessory Muscle Use Gastrointestinal: Yes: Normal Bowel Sounds (tds exam (++ obese)), Soft. No: Tenderness Extremities: No: Cold Edema: Yes indurated and 1+ dependent edema to pannus Integumentary: No: Jaundice diaphoresis Neurological: Yes: Alert, Oriented (x3) Psychiatric: No: Agitated Labs: Laboratory Last Values WBC 10.0 K/mm3 (4.0-10.0) 07/03/16 05:45 RBC 3.50 M/mm3 (3.60-5.2) L 07/03/16 05:45 Hgb 9.9 GM/dL (10.7-15.3) L D 07/03/16 05:45 Hct 31.2 % (32.4-45.2) L 07/03/16 05:45 MCV 89.2 fl (80-96) 07/03/16 05:45 MCHC 31.6 g/dl (32.0-36.0) L 07/03/16 05:45 RDW 16.6 % (11.6-15.6) H 07/03/16 05:45 Plt Count 204 K/MM3 (134-434) 07/03/16 05:45 MPV 8.0 fl (7.5-11.1) 07/03/16 05:45 Neutrophils % 79.8 % (42.8-82.8) 07/03/16 05:45 Lymphocytes % 6.7 % (8-40) L 07/03/16 05:45 Monocytes % 10.0 % (3.8-10.2) 07/03/16 05:45 Eosinophils % 2.2 % (0-4.5) 07/03/16 05:45 Basophils % 1.3 % (0-2.0) 07/03/16 05:45 INR 1.28 (0.82-1.09) H 07/03/16 05:45 PTT (Actin FS) 30.9 SECONDS (26.9-34.4) 07/03/16 05:45 Puncture Site Left radial 07/02/16 12:31 ABG pH 7.35 (7.35-7.45) 07/02/16 12:31 ABG pCO2 at Pt Temp 45.5 mmHg (35-45) H 07/02/16 12:31 ABG pO2 at Pt Temp 109.0 mmHg (70-100) H D 07/02/16 12:31 ABG HCO3 24.2 meq/L (22-26) 07/02/16 12:31 ABG O2 Sat (Measured) 98.4 % (90-98.9) 07/02/16 12:31 ABG O2 Content 12.2 % vol (15-22) L 07/02/16 12:31 ABG Base Excess -0.9 meq/l (-2-2) 07/02/16 12:31 Mauricio Test Positive 07/02/16 12:31 O2 Delivery Device Nasal o2 07/02/16 12:31 Oxygen Flow Rate 3l 07/02/16 12:31 Vent Mode S/t 06/30/16 11:00 Vent Rate 14 06/30/16 11:00 Mechanical Rate Bipap 06/30/16 11:00 PEEP 0.0 cmH2O 06/30/16 11:00 Pressure Support Vent Ipap 14/epap 6 06/30/16 11:00 Sodium 139 mmol/L (136-145) 07/03/16 05:45 Potassium 4.5 mmol/L (3.5-5.1) 07/03/16 05:45 Chloride 100 mmol/L (98-107) 07/03/16 05:45 Carbon Dioxide 28 mmol/L (21-32) 07/03/16 05:45 Anion Gap 11 (8-16) 07/03/16 05:45 BUN 93 mg/dL (7-18) H 07/03/16 05:45 Creatinine 2.8 mg/dL (0.55-1.02) H 07/03/16 05:45 Creat Clearance w eGFR 16.61 (>60) 07/03/16 05:45 POC Glucometer 135 UNITS (()) 07/02/16 22:35 Random Glucose 128 mg/dL (74-106) H D 07/03/16 05:45 Lactic Acid 0.478 mmol/L (0.4-2.0) 06/26/16 13:26 Calcium 7.8 mg/dL (8.5-10.1) L 07/03/16 05:45 Phosphorus 5.2 mg/dL (2.5-4.9) H 07/01/16 05:35 Magnesium 2.2 mg/dL (1.8-2.4) 07/03/16 05:45 Iron 40 ug/dL (27-139) 06/29/16 05:40 TIBC 168 ug/dL (250-450) L 06/29/16 05:40 Iron Saturation 24 % (15-55) 06/29/16 05:40 Ferritin 503.519 ng/ml (6.9-282.5) H 06/29/16 05:40 Total Bilirubin 0.7 mg/dL (0.2-1.0) 07/03/16 05:45 AST 4 U/L (15-37) L D 07/03/16 05:45 ALT 6 U/L (12-78) L 07/03/16 05:45 Alkaline Phosphatase 82 U/L (45-117) 07/03/16 05:45 Creatine Kinase 20 IU/L (26-192) L 06/27/16 06:30 Troponin I 0.02 ng/ml (0.00-0.05) 06/27/16 06:30 Total Protein 6.2 g/dl (6.4-8.2) L 07/03/16 05:45 Albumin 1.9 g/dl (3.4-5.0) L 07/03/16 05:45 TSH 13.30 uIU/ml (0.358-3.74) H D 06/29/16 05:40 Vancomycin Trough 13.699 ug/ml (5.0-10.0) H 06/27/16 06:30 Random Vancomycin 17.059 ug/ml 06/29/16 05:40 Blood Type O POSITIVE 07/02/16 10:40 Antibody Screen Positive H 07/02/16 10:40 Prewarmed Antibody Srcn Negative 07/02/16 10:40 Antibody Identification NON-SPECIFIC COLD AGGLUTININS 07/02/16 10:40 Antigen Identification Y 07/02/16 10:40 Crossmatch See Detail 07/02/16 10:40 tele: sr, occ pvcs Echo here 07/01/2016: Mild decr EF. paradoxical septal motion with mild HK of anteroseptum. RV not seen. 1+ mr/tr. mild (although MG only 12 mmHg). Echo 07/11: mild-mod decr EF--global; nl RV; mild LAE; mild-mod MR/TR; RVSP 30-40 ; small peric effusion; + pleural eff echo 12/06/15: mild lvh. nl lv/rv, Septal motion c/w RV volume overload. Ab diastology. mild cheryl, mild-mod mr, mild as, mod-sev tr, rvsp 50, mod pericardial eff, no tamponade. pleural effusion. echo 12/11/15: focused, Nl lv. trivial pericardial eff. Pleural effusion. EKG 06/27/16: sr, nl intervals, nonspecific tw changes, no sig change prior a/p: 71 yo with h/o HFpEF, CAD s/p OH, HTN, HL, pHTN, MIRIAM, o2 dep't copd, CKD, IDDM, hypothyroid and chronic LLE cellulitis, here with non healing left foot wound/gangrene. chronic foot wound, s/p OR debridement 06/06/16: -now returns with worsening wound, gangrene -plan per vascular surgery/ID. -Currently planned for BKA later today. Based on RCRI, bedridden functional status and tenuous pulmonary status, she is high risk for nichole-operative surgical complications however it appears that bka is necessary to prevent further clinical decompensation and thus the benefit would outweigh the risk in this case. Further cardiac testing/treatment would not significantly reduce her risk status. Pt has intermediate-high risk, but not prohibitive risk, of periop cardiac events for the planned bka, would proceed as planned. chronic HFpEF/pulm HTN/venous ins'y/chronic resp failure/acute hypoxic resp failure here: - pt with volume overload during mult prior admits here--vol status is always [id number] to assess given morbidly obese neck hiding JVD, chronic venous ins'y/lymphedema of legs, and chronically very abnormal CXR markings due to overlying soft tissue - cr well above baseline here, patient vomiting/NPO with NGT in, suspected CRISTELA from anemia/infection per renal -cont holding diuretics and cautious fluids as doing. Gross total body volume overload, may need ultrafiltration once acute issues resolve or if LE edema prevents surgical candidacy (although discussed with renal, unlikely that ultrafiltration prior to surgery would successfully mobilize extravascular fluid ). Con't IVF, mgm't per renal. -BIPAP prn per pulmonary. - Repeat echo --> unable to visualize RV. (NOTE: SHE HAS HAD SUSPECTED RV DILATION ALREADY ON SOME OF HER PRIOR ECHOES) -pt with mult RFs for PE but creat prohibitive for IV contrast, and she cannot currently cooperate with V/Q; d/w'd dr daily who feels cause of her current decompensation is more likely sec to exacerbation of her chronic lung disease PSVT: -likely brief run of ATach on tele 07/01. no recurrence. -cont tele monitoring, low dose coreg for now as doing (dose had been lowered while here - change to metoprolol if runs become frequent) CAD, h/o NSTEMI: -has previously refused stress tests. h/o NSTEMI x 2 (2012, 2014) in setting of demand (sepsis/anemia) -MATEO deferred previously due to labile creat's--no change; - cath previously deferred due to: pt preference; hi risk of vascular complications (obese habitus), hi risk of BERNARDINO, and h/o recurrent anemia, possible occult GIB - currently without anginal sx's. EKG unchanged. Con't statin, coreg, asa, imdur CKD/cristela: - baseline creat 1.7-2.0 - renal fxn progressively worsening here--suspected hypoperfusion from cellulitis/anemia -- on IVF here - renal following anemia: -chronic, baseline runs 8s-9s; -freq acute drops/PRBCs in past; currently near baseline HTN: -controlled -/-/5 with persistent bradycardia--decreased carvedilol to 6.25 mg, then to to 3.125 mg bid. Now improved. gastroparesis: -s/p ngt -GI following
[2016-07-03] MEDS: ISOSORBIDE MONONITRATE 30 MG TAB.SR.24H (FP) PO SCH (10:49)
--- NOTE | 2016-07-03 11:01 | PN ---
Progress Note, Physician Chief Complaint: in bed on NC; NGT still draining; no CP/SOB, afebrile, VSS; axox3 nad L foot 3 black fingers with wounds and gangrene extending to the L dorsal foot side angio can not be done b/o body habitus and ARF; d/w vasc sx the only choice at this point is BKA labs, tests and consults reviewed and d/w pt and her 2 sisters in detail; plan of treatment d/w them and they agree with it (BKA, antibiotics) high risk for postop and intraop complications but needs surgery to prevent sepsis possible intraop and postop complications like but not limited to bleeding, infection/ sepsis, respiratory failure, arrythmia OR, acute CHF, worsening renal failure requiring dyalsis d/w pt and sisters, aware - Current Medication List Current Medications: Active Medications Al Hydroxide/Mg Hydroxide (Mylanta Oral Suspension -) 30 ml PO BID [facility] Last Admin: 07/03/16 10:34 Dose: Not Given Albuterol Sulfate (Ventolin 0.083% Nebulizer Soln -) 1 amp NEB Q6H PRN PRN Reason: SHORT OF BREATH/WHEEZING Last Admin: 07/03/16 06:10 Dose: 1 amp Aspirin (Ecotrin -) 81 mg PO DAILY [facility] Last Admin: 07/02/16 09:55 Dose: 81 mg Atorvastatin Calcium (Lipitor -) 20 mg PO HS [facility] Last Admin: 07/02/16 22:23 Dose: 20 mg Carvedilol (Coreg -) 3.125 mg PO BID [facility] Last Admin: 07/03/16 10:21 Dose: 3.125 mg Collagenase (Santyl -) 1 applic TP DAILY [facility] Last Admin: 07/02/16 09:58 Dose: 1 applic Cyanocobalamin (Vitamin B12 -) 1,000 mcg PO DAILY [facility] Last Admin: 07/03/16 10:21 Dose: 1,000 mcg Epoetin Dawood (Procrit -) 10,000 unit SQ Q7D [facility] Last Admin: 06/26/16 21:34 Dose: 10,000 unit Heparin Sodium (Porcine) (Heparin -) 5,000 unit SQ BID [facility] Last Admin: 07/02/16 22:23 Dose: 5,000 unit Amino Acids (Clinimix -) 1,000 mls @ 42 mls/hr IV Q23H [facility] Last Admin: 07/03/16 06:11 Dose: Not Given Vancomycin HCl 1,250 mg/ (Dextrose) 250 mls @ 166.667 mls/hr IVPB ONCE ONE PRN Reason: Protocol Stop: 07/03/16 11:29 Insulin Aspart (Novolog Vial Sliding Scale -) 1 vial SQ ACHS [facility] PRN Reason: Protocol Last Admin: 07/03/16 06:13 Dose: Not Given Insulin Detemir (Levemir Vial) 10 units SQ DAILY@0700 [facility] Last Admin: 07/03/16 06:12 Dose: Not Given Isosorbide Mononitrate (Imdur -) 30 mg PO DAILY [facility] Last Admin: 07/03/16 10:49 Dose: Not Given Levothyroxine Sodium (Synthroid -) 50 mcg PO DAILY@0700 [facility] Last Admin: 07/03/16 06:11 Dose: Not Given Lidocaine (Lidoderm Patch -) 1 patch TP DAILY [facility] Last Admin: 07/03/16 10:21 Dose: 1 patch Metoclopramide HCl (Reglan Injection -) 10 mg IVPB Q6H [facility] Last Admin: 07/03/16 01:45 Dose: 10 mg Morphine Sulfate (Morphine Injection -) 1 mg IM Q6H PRN PRN Reason: PAIN Last Admin: 06/30/16 22:12 Dose: 1 mg Nystatin (Mycostatin Cream -) 1 applic TP BID [facility] Last Admin: 07/02/16 22:21 Dose: 1 applic Ondansetron HCl (Zofran Injection) 8 mg IVPB Q6H PRN PRN Reason: NAUSEA AND/OR VOMITING Last Admin: 06/27/16 06:46 Dose: 8 mg Oxycodone HCl (Roxicodone -) 5 mg PO Q4H PRN PRN Reason: PAIN LEVEL 6-10 Last Admin: 07/03/16 10:19 Dose: 5 mg Pantoprazole Sodium (Protonix 40mg Ivpb (Pre-Docked)) 40 mg IVPB BID [facility] Last Admin: 07/02/16 22:21 Dose: 40 mg Piperacillin Sod/Tazobactam Sod (Zosyn 3.375gm Ivpb (Pre-Docked)) 3.375 gm IVPB Q8H-IV JESÚS PRN Reason: Protocol Last Admin: 07/03/16 10:22 Dose: 3.375 gm Polyethylene Glycol (Miralax (For Daily Use) -) 17 gm PO DAILY [facility] Last Admin: 07/03/16 10:34 Dose: Not Given Senna/Docusate Sodium (Pericolace -) 2 tablet PO HS [facility] Last Admin: 07/02/16 22:22 Dose: 2 tablet Simethicone (Mylicon -) 80 mg PO QID [facility] Last Admin: 07/03/16 10:34 Dose: Not Given - Objective Vital Signs: Vital Signs Temperature 97.8 F 07/03/16 09:14 Pulse Rate 86 07/03/16 10:01 Respiratory Rate 20 07/03/16 09:14 Blood Pressure 145/49 07/03/16 09:14 O2 Sat by Pulse Oximetry (%) 99 07/03/16 10:01 Constitutional: Yes: No Distress, Calm Eyes: Yes: Conjunctiva Clear HENT: Yes: Atraumatic Neck: Yes: Supple Cardiovascular: Yes: Regular Rate and Rhythm Respiratory: Yes: Diminished Gastrointestinal: Yes: Soft, Abdomen, Obese. No: Distention, Tenderness Genitourinary: No: Hematuria Musculoskeletal: No: Joint Stiffness, Joint Swelling Extremities: No: Cold, Cool Edema: Yes Integumentary: Yes: Rash, Venous Stasis Changes Wound/Incision: Yes: Other (L foot gangrene) Neurological: Yes: Alert, Oriented ...Motor Strength: WNL (functional quadriparesis) Psychiatric: Yes: Alert, Oriented. No: Agitated Labs: CBC, BMP 07/03/16 05:45 07/03/16 05:45 INR, PTT INR 1.28 (0.82-1.09) H 07/03/16 05:45 - ....Imaging Other: Report Reviewed Assessment/Plan The patient is a 71 year old female with significant past medical history of hypertension, hyperlipidemia, diabetes, CAD, CHF, MIx2, COPD (O2 dependent 2L), and renal insufficiency who presents to the emergency department sent from wound care by Dr. Alonos for further evaluation of a left lower extremity wound. Nonhealing after ATB and HBO tx. 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; DNR DNI but she agreed to have intubation if needed for general anesthesia active issues: L foot gangrene; ARF on CRF, anemia gastroparesis; COPD respiratory failure, CHF volume overload; anemia; morbid obesity; cardio, GI, renal f/u NGT; NPO, s/p PRBC and IVF; on clinimix iv 42 cc/h IV ATB per ID; wound care per vascular sx; For L BKA today - high risk for intraop / postop complications as above L foot 3 black fingers with wounds and gangrene extending to the L dorsal foot side angio can not be done b/o body habitus and ARF; d/w vasc sx the only choice at this point is BKA labs, tests and consults reviewed and d/w pt and her 2 sisters in detail; plan of treatment d/w them and they agree with it (BKA, antibiotics) high risk for postop and intraop complications but needs surgery to prevent sepsis possible intraop and postop complications like but not limited to bleeding, infection/ sepsis, respiratory failure, arrythmia OR, acute CHF, worsening renal failure requiring dyalsis d/w pt and sisters, aware labs, EKG, CXR postop; ICU postop gastric DVT aspiration PFX pain meds prn f/u labs and xrays prognosis guarded d/w pt and staff and pt's family see above; t time 60 min
[2016-07-03] MEDS: PANTOPRAZOLE SODIUM 40 MG/100 ML PRE-DOCKED IVPB SCH ×2 (12:26→22:19)
[2016-07-03] MEDS ORDERED: ONDANSETRON 4 MG/2 ML VIAL IVPUSH PRN ×2 (15:35→20:31)
[2016-07-03] MEDS ORDERED: PROMETHAZINE HCL 25 MG/1 ML VIAL IVPUSH PRN ×2 (15:35→20:31)
[2016-07-03] MEDS ORDERED: PROPOFOL 20 ML ONE (15:37)
[2016-07-03] MEDS ORDERED: SUCCINYLCHOLINE CHLORIDE 200 MG/10 ML VIAL ONE (15:37)
[2016-07-03] MEDS ORDERED: LACTATED RINGERS SOLUTION 1,000 ML IV SCH (15:45)
[2016-07-03] MEDS ORDERED: MIDAZOLAM HCL 2 MG/2 ML SINGLE DOSE VIAL ONE (15:50)
[2016-07-03] MEDS ORDERED: VANCOMYCIN 1,000 MG VIAL (RESTRICTED TO ID ONLY) IVPB ONE (15:50)
[2016-07-03] MEDS ORDERED: BUPIVACAINE HCL/PF 0.5% (5MG/ML) 10 ML VIAL ONE (15:58)
--- NOTE | 2016-07-03 16:30 | PN ---
Progress Note (short form) - Note Progress Note: Renal follow up for CRISTELA on CKD Pt seen and examined at the bedside family at the bedside for OR today for LE amputation no acute complaints Vital Signs Temperature 98.0 F 07/03/16 14:00 Pulse Rate 82 07/03/16 14:00 Respiratory Rate 20 07/03/16 14:00 Blood Pressure 131/65 07/03/16 14:00 O2 Sat by Pulse Oximetry (%) 99 07/03/16 10:01 Intake & Output 06/30/16 07/01/16 07/02/16 07/03/16 23:59 23:59 23:59 23:59 Intake Total 1250 1520 3098 654 Output Total 300 100 Balance 1250 1520 2798 554 Weight 299 lb 4.8 oz 299 lb 301 lb 1 oz Gen: NAD, NGT in place CVS: RRR, No M/R Lungs: CTA, No rales or wheeze Abd: soft, Obese, mild tenderness, + distension Ext: No edema, clubbing or cyanosis : No bladder distension CBC, BMP 07/03/16 05:45 07/03/16 05:45 Current Medications Al Hydroxide/Mg Hydroxide (Mylanta Oral Suspension -) 30 ml PO BID [facility] Last Admin: 07/03/16 10:34 Dose: Not Given Albuterol Sulfate (Ventolin 0.083% Nebulizer Soln -) 1 amp NEB Q6H PRN PRN Reason: SHORT OF BREATH/WHEEZING Last Admin: 07/03/16 06:10 Dose: 1 amp Aspirin (Ecotrin -) 81 mg PO DAILY [facility] Last Admin: 07/02/16 09:55 Dose: 81 mg Atorvastatin Calcium (Lipitor -) 20 mg PO HS [facility] Last Admin: 07/02/16 22:23 Dose: 20 mg Carvedilol (Coreg -) 3.125 mg PO BID [facility] Last Admin: 07/03/16 10:21 Dose: 3.125 mg Collagenase (Santyl -) 1 applic TP DAILY [facility] Last Admin: 07/02/16 09:58 Dose: 1 applic Cyanocobalamin (Vitamin B12 -) 1,000 mcg PO DAILY [facility] Last Admin: 07/03/16 10:21 Dose: 1,000 mcg Epoetin Dawood (Procrit -) 10,000 unit SQ Q7D [facility] Last Admin: 06/26/16 21:34 Dose: 10,000 unit Fentanyl (Sublimaze Injection -) 50 mcg IVPUSH [id number] PRN PRN Reason: PAIN Stop: 07/06/16 15:36 Heparin Sodium (Porcine) (Heparin -) 5,000 unit SQ BID [facility] Last Admin: 07/02/16 22:23 Dose: 5,000 unit Amino Acids (Clinimix -) 1,000 mls @ 42 mls/hr IV Q23H [facility] Last Admin: 07/03/16 06:11 Dose: Not Given Lactated Ringer's (Lactated Ringers Solution) 1,000 mls @ 125 mls/hr IV ASDIR [facility] Insulin Aspart (Novolog Vial Sliding Scale -) 1 vial SQ ACHS [facility] PRN Reason: Protocol Last Admin: 07/03/16 15:38 Dose: Not Given Insulin Detemir (Levemir Vial) 10 units SQ DAILY@0700 [facility] Last Admin: 07/03/16 06:12 Dose: Not Given Isosorbide Mononitrate (Imdur -) 30 mg PO DAILY [facility] Last Admin: 07/03/16 10:49 Dose: Not Given Levothyroxine Sodium (Synthroid -) 50 mcg PO DAILY@0700 [facility] Last Admin: 07/03/16 06:11 Dose: Not Given Lidocaine (Lidoderm Patch -) 1 patch TP DAILY [facility] Last Admin: 07/03/16 10:21 Dose: 1 patch Metoclopramide HCl (Reglan Injection -) 10 mg IVPB Q6H [facility] Last Admin: 07/03/16 15:38 Dose: Not Given Morphine Sulfate (Morphine Injection -) 1 mg IM Q6H PRN PRN Reason: PAIN Last Admin: 06/30/16 22:12 Dose: 1 mg Nystatin (Mycostatin Cream -) 1 applic TP BID [facility] Last Admin: 07/02/16 22:21 Dose: 1 applic Ondansetron HCl (Zofran Injection) 8 mg IVPB Q6H PRN PRN Reason: NAUSEA AND/OR VOMITING Last Admin: 06/27/16 06:46 Dose: 8 mg Ondansetron HCl (Zofran Injection) 4 mg IVPUSH Q6H PRN PRN Reason: NAUSEA AND/OR VOMITING Stop: 07/03/16 21:36 Oxycodone HCl (Roxicodone -) 5 mg PO Q4H PRN PRN Reason: PAIN LEVEL 6-10 Last Admin: 07/03/16 10:19 Dose: 5 mg Pantoprazole Sodium (Protonix 40mg Ivpb (Pre-Docked)) 40 mg IVPB BID [facility] Last Admin: 07/03/16 12:26 Dose: 40 mg Piperacillin Sod/Tazobactam Sod (Zosyn 3.375gm Ivpb (Pre-Docked)) 3.375 gm IVPB Q8H-IV [facility] PRN Reason: Protocol Last Admin: 07/03/16 10:22 Dose: 3.375 gm Polyethylene Glycol (Miralax (For Daily Use) -) 17 gm PO DAILY [facility] Last Admin: 07/03/16 10:34 Dose: Not Given Promethazine HCl (Phenergan Injection -) 12.5 mg IVPUSH Q6H PRN PRN Reason: NAUSEA Stop: 07/03/16 21:36 Senna/Docusate Sodium (Pericolace -) 2 tablet PO HS [facility] Last Admin: 07/02/16 22:22 Dose: 2 tablet Simethicone (Mylicon -) 80 mg PO QID [facility] Last Admin: 07/03/16 15:37 Dose: Not Given A/p 71 year old Woman with PMhx of CKD, CHF, Morbid Obesity, IDDM, Anemia who presented with worsening LE wounds and found to have CRISTELA with BUN/Cr of 90/2.5. #CRISTELA on CKD with Anasarca Renal function stable at this time despite being above baseline no acute indication for [employer] pt does not wish to have dialysis if she were to need it for OR today for LE amputation continue to trend BUN/Cr continue gentle IVF hydration as tolerated holding diuretics no MATEO/ARB at this time Prognosis guarded Thank you Lambert Mcnamara
[2016-07-03] MEDS ORDERED: DEXAMETHASONE SOD PHOSPHATE 4 MG/1 ML VIAL ONE (18:21)
[2016-07-03] MEDS ORDERED: BACITRACIN 30 GM TUBE TOPICAL OINTMENT ONE (18:24)
[2016-07-03] MEDS ORDERED: BACITRACIN 30 GM TUBE TOPICAL OINTMENT TP ONE (18:28)
--- NOTE | 2016-07-03 19:03 | OP ---
Operative Note - Note: Operative Date: 07/03/16 Pre-Operative Diagnosis: Left foot gangrene Operation: Left below knee amputation Post-Operative Diagnosis: Same as Pre-op Surgeon: Gaurav Alonso Anesthesia: Spinal Specimens Removed: left foot Estimated Blood Loss (mls): 800 Operative Report Dictated: Yes
[2016-07-03] MEDS ORDERED: ONDANSETRON 4 MG/2 ML VIAL IVPB PRN (20:31)
[2016-07-03] MEDS ORDERED: morphine CARPU-JECT 2 MG/1 ML DISP.SYRIN IM PRN (20:31)
[2016-07-03] MEDS: LACTATED RINGERS SOLUTION 1,000 ML IV SCH (22:17)
[2016-07-03] MEDS: NYSTATIN 100,000 UNIT/GM TOPICAL CREAM 15 GM TUBE TP SCH (22:18)
[2016-07-03] MEDS: SENNOSIDES/DOCUSATE COMBO (SENNA PLUS) TABLET (UD) PO SCH (22:18)
[2016-07-03] MEDS: HYDROmorphone HCL CARPU-JECT 1 MG/1 ML DISP.SYRIN IVPB PRN (22:19)
[2016-07-03] MEDS: ATORVASTATIN CA 20 MG TABLET (FP) PO SCH (23:38)
[2016-07-04 00:12] LABS: MCH 28.2 pg (25.7-33.7); MCHC 31.6 g/dl (32.0-36.0); MEAN CELL VOLUME 89.4 fl (80-96); MEAN PLT VOLUME 8.5 fl (7.5-11.1); PLATELET COUNT 179 K/MM3 (134-434); RDW 15.7 % (11.6-15.6); WHITE BLOOD COUNT 15.1 K/mm3 (4.0-10.0)
[2016-07-04] MEDS: METOCLOPRAMIDE HCL INJECTION 10 MG/2 ML VIAL IVPB SCH ×4 (01:25→22:09)
[2016-07-04] MEDS: HYDROmorphone HCL CARPU-JECT 1 MG/1 ML DISP.SYRIN IVPB PRN ×4 (02:48→15:42)
[2016-07-04] MEDS: PIPERACILLIN/TAZOB 3.375 GM/50 ML PRE-DOCKED IVPB SCH ×2 (03:30→10:19)
[2016-07-04] MEDS: INSULIN SLIDING SCALE (NOVOLOG) 1 VIAL SQ SCH ×4 (06:38→23:43)
[2016-07-04] MEDS: AMINO ACIDS 4.25%/D5W 1,000 ML IV SCH (06:38)
[2016-07-04] MEDS: LEVOTHYROXINE NA 50 MCG TABLET (FP) PO SCH (06:39)
[2016-07-04] MEDS: INSULIN DETEMIR 100 UNITS/ML MDV SQ SCH (06:39)
[2016-07-04 08:12] LABS: BASOPHIL 0.5 % (0-2.0); MCHC 31.6 g/dl (32.0-36.0); MEAN CELL VOLUME 88.6 fl (80-96); MEAN PLT VOLUME 8.5 fl (7.5-11.1); NEUTROPHILS 94.9 % (42.8-82.8); PLATELET COUNT 178 K/MM3 (134-434); RDW 16.1 % (11.6-15.6); WHITE BLOOD COUNT 14.7 K/mm3 (4.0-10.0)
[2016-07-04 08:45] LABS: ALBUMIN 1.7 g/dl (3.4-5.0); ALK PHOS 69 U/L (45-117); ANION GAP 12 (8-16); BILIRUBIN,TOTAL 1.2 mg/dL (0.2-1.0); CALCIUM 7.5 mg/dL (8.5-10.1); CO2 26 mmol/L (21-32); CREATININE 2.5 mg/dL (0.55-1.02); GLUCOSE,RANDOM 149 mg/dL (74-106); SGOT/AST 8 U/L (15-37); SGPT/ALT < 6 U/L (12-78); TOT PROT 5.5 g/dl (6.4-8.2)
--- NOTE | 2016-07-04 09:53 | PN ---
Progress Note (short form) - Note Progress Note: s: no cp sob palps dizzy. s/p bka 3/8 Current Medications Generic Name Dose Route Start Last Admin Trade Name Freq PRN Reason Stop Dose Admin Al Hydroxide/Mg Hydroxide 30 ml 07/03/16 22:00 07/03/16 22:18 Mylanta Oral Suspension - PO Not Given BID JESÚS Albuterol Sulfate 1 amp 07/03/16 20:31 Ventolin 0.083% Nebulizer Soln - NEB Q6H PRN SHORT OF BREATH/WHEEZING Aspirin 81 mg 07/04/16 10:00 Ecotrin - PO DAILY JESÚS Atorvastatin Calcium 20 mg 07/03/16 22:00 07/03/16 23:38 Lipitor - PO 20 mg HS JESÚS Administration Carvedilol 3.125 mg 07/03/16 22:00 07/03/16 23:38 Coreg - PO 3.125 mg BID JESÚS Administration Collagenase 1 applic 07/04/16 10:00 Santyl - TP DAILY [facility] Cyanocobalamin 1,000 mcg 07/04/16 10:00 Vitamin B12 - PO DAILY [facility] Epoetin Dawood 10,000 unit 07/10/16 19:00 Procrit - SQ Q7D JES[facility]S Fentanyl 50 mcg 07/03/16 20:31 07/03/16 20:30 Sublimaze Injection - IVPUSH 07/06/16 15:36 50 mcg [id number] PRN Administration PAIN Heparin Sodium (Porcine) 5,000 unit 07/03/16 22:00 Heparin - SQ BID [facility] Hydromorphone HCl 1 mg 07/03/16 19:01 07/04/16 08:40 Dilaudid Injection - IVPB 1 mg Q4H PRN Administration PAIN Amino Acids 1,000 mls @ 42 mls/hr 07/04/16 04:00 07/04/16 06:38 Clinimix - IV 42 mls/hr Q23H JES[facility]S Administration Lactated Ringer's 1,000 mls @ 125 mls/hr 07/03/16 20:31 07/03/16 22:17 Lactated Ringers Solution IV Not Given ASDIR [facility] Insulin Aspart 1 vial 07/03/16 22:00 07/04/16 06:38 Novolog Vial Sliding Scale - SQ Not Given ACHS [facility] Protocol Insulin Detemir 10 units 07/04/16 07:00 07/04/16 06:39 Levemir Vial SQ Not Given DAILY@0700 [facility] Isosorbide Mononitrate 30 mg 07/04/16 10:00 Imdur - PO DAILY JES[facility]S Levothyroxine Sodium 50 mcg 07/04/16 07:00 07/04/16 06:39 Synthroid - PO 50 mcg DAILY@0700 J[facility] Administration Lidocaine 1 patch 07/04/16 10:00 Lidoderm Patch - TP DAILY [facility] Metoclopramide HCl 10 mg 07/04/16 01:45 07/04/16 08:35 Reglan Injection - IVPB 10 mg Q6H JES[facility]S Administration Morphine Sulfate 1 mg 07/03/16 20:31 Morphine Injection - IM Q6H PRN PAIN Nystatin 1 applic 07/03/16 22:00 07/03/16 22:18 Mycostatin Cream - TP Not Given BID [facility] Ondansetron HCl 8 mg 07/03/16 20:31 Zofran Injection IVPB Q6H PRN NAUSEA AND/OR VOMITING Oxycodone HCl 5 mg 07/03/16 20:31 Roxicodone - PO Q4H PRN PAIN LEVEL 6-10 Pantoprazole Sodium 40 mg 07/03/16 22:00 07/03/16 22:19 Protonix 40mg Ivpb (Pre-Docked) IVPB 40 mg BID JES[facility]S Administration Piperacillin Sod/Tazobactam Sod 3.375 gm 07/04/16 02:00 07/04/16 03:30 Zosyn 3.375gm Ivpb (Pre-Docked) IVPB 3.375 gm Q8H-IV JES[facility]S Administration Protocol Polyethylene Glycol 17 gm 07/04/16 10:00 Miralax (For Daily Use) - PO DAILY [facility] Senna/Docusate Sodium 2 tablet 07/03/16 22:00 07/03/16 22:18 Pericolace - PO Not Given HS JES[facility]S Simethicone 80 mg 07/03/16 22:00 07/03/16 22:18 Mylicon - PO Not Given QID JES[facility]S Vital Signs Period Temp Pulse Resp BP Sys/Hagan Pulse Ox Last 24 Hr 97.3 F-98.5 F 58-86 16-20 108-152/38-65 97-100 Constitutional: Yes: No Distress, Calm, Obese Eyes: No: Sclera Icterus Cardiovascular: Yes: Regular Rate and Rhythm, S1, S2, Other (PMI displaced). No: JVD (tds habitus,) 2/6 sys murmur at apex Gallop Respiratory: Yes: diminished air movement, poor effort. No: Accessory Muscle Use Gastrointestinal: Yes: Normal Bowel Sounds (tds exam (++ obese)), Soft. No: Tenderness Extremities: No: Cold Edema: Yes indurated and 1+ dependent edema to pannus Integumentary: No: Jaundice diaphoresis Neurological: Yes: Alert, Oriented (x3) Psychiatric: No: Agitated Labs: CBC, BMP 07/04/16 05:37 07/04/16 05:37 tele: sr, occ pvcs Echo here 07/01/2016: Mild decr EF. paradoxical septal motion with mild HK of anteroseptum. RV not seen. 1+ mr/tr. mild (although MG only 12 mmHg). Echo 07/11: mild-mod decr EF--global; nl RV; mild LAE; mild-mod MR/TR; RVSP 30-40 ; small peric effusion; + pleural eff echo 12/06/15: mild lvh. nl lv/rv, Septal motion c/w RV volume overload. Ab diastology. mild cheryl, mild-mod mr, mild as, mod-sev tr, rvsp 50, mod pericardial eff, no tamponade. pleural effusion. echo 12/11/15: focused, Nl lv. trivial pericardial eff. Pleural effusion. EKG 06/27/16: sr, nl intervals, nonspecific tw changes, no sig change prior a/p: 71 yo with h/o HFpEF, CAD s/p MO, HTN, HL, pHTN, MIRIAM, o2 dep't copd, CKD, IDDM, hypothyroid and chronic LLE cellulitis, here with non healing left foot wound/gangrene. chronic foot wound, gangrene, now s/p bka 07/03/16: -vascular, ID following chronic HFpEF/pulm HTN/venous ins'y/chronic resp failure/acute hypoxic resp failure here: - pt with volume overload during mult prior admits here--vol status is always [id number] to assess given morbidly obese neck hiding JVD, chronic venous ins'y/lymphedema of legs, and chronically very abnormal CXR markings due to overlying soft tissue - cr well above baseline here, patient vomiting/NPO with NGT in, suspected CRISTELA from anemia/infection per renal -cont holding diuretics and cautious fluids as doing. Gross total body volume overload, may need ultrafiltration once acute issues resolve or if LE edema prevents surgical candidacy (although discussed with renal, unlikely that ultrafiltration prior to surgery would successfully mobilize extravascular fluid ). Con't IVF, mgm't per renal. -BIPAP prn per pulmonary. - Repeat echo --> unable to visualize RV. (NOTE: SHE HAS HAD SUSPECTED RV DILATION ALREADY ON SOME OF HER PRIOR ECHOES) -pt with mult RFs for PE but creat prohibitive for IV contrast, and she cannot currently cooperate with V/Q; d/w'd dr daily who feels cause of her current decompensation is more likely sec to exacerbation of her chronic lung disease PSVT: -likely brief run of ATach on tele 07/01. no recurrence. CAD, h/o NSTEMI: -has previously refused stress tests. h/o NSTEMI x 2 (2012, 2014) in setting of demand (sepsis/anemia) -MATEO deferred previously due to labile creat's--no change; - cath previously deferred due to: pt preference; hi risk of vascular complications (obese habitus), hi risk of BERNARDINO, and h/o recurrent anemia, possible occult GIB - currently without anginal sx's. EKG unchanged. Con't statin, coreg, asa, imdur CKD/cristela: - baseline creat 1.7-2.0 - renal fxn progressively worsening here--suspected hypoperfusion from cellulitis/anemia -- on IVF here - holding diuretic - renal following anemia: -chronic, baseline runs 8s-9s; -freq acute drops/PRBCs in past; currently near baseline HTN: -controlled -3/4-3/5 with persistent bradycardia--decreased carvedilol to 6.25 mg, then to to 3.125 mg bid. Now improved. gastroparesis: -s/p ngt -GI following
[2016-07-04] MEDS: PANTOPRAZOLE SODIUM 40 MG/100 ML PRE-DOCKED IVPB SCH ×2 (10:19→22:11)
[2016-07-04] MEDS: MAG HYDROX/AL HYDROX/SIMETH 30 ML UNIT-DOSE CUP PO SCH ×3 (10:23→22:10)
[2016-07-04] MEDS: ISOSORBIDE MONONITRATE 30 MG TAB.SR.24H (FP) PO SCH (10:23)
[2016-07-04] MEDS: POLYETHYLENE GLYCOL 3350 119 GM BTL PO SCH (10:24)
[2016-07-04] MEDS: LIDOCAINE 5% TOPICAL PATCH TP SCH (10:24)
[2016-07-04] MEDS: CARVEDILOL 3.125 MG TABLET (FP) PO SCH ×3 (10:24→22:10)
[2016-07-04] MEDS: SIMETHICONE 80 MG TAB.CHEW (FP) PO SCH ×5 (10:25→22:10)
[2016-07-04] MEDS: CYANOCOBALAMIN 1,000 MCG TABLET (FP) PO SCH ×2 (10:25→11:27)
[2016-07-04] MEDS: NYSTATIN 100,000 UNIT/GM TOPICAL CREAM 15 GM TUBE TP SCH ×2 (10:25→22:10)
[2016-07-04] MEDS: COLLAGENASE CLOSTRIDIUM HIST. 30 GRAMS TUBE TP SCH (10:27)
[2016-07-04 10:51] LABS: TROPONIN I 0.02 ng/ml (0.00-0.05)
[2016-07-04] MEDS ORDERED: INSULIN (NOVOLOG) ASPART 100 UNITS/ML 10ML VIAL ONE ×2 (11:36→16:33)
--- NOTE | 2016-07-04 11:46 | PN ---
Progress Note (short form) - Note Progress Note: Renal follow up for CRISTELA on CKD Pt seen and examined at the bedside no acute complaints denies any sob, chest pain, abd pain s/p left BKA yesterday Vital Signs Temperature 97.8 F 07/04/16 05:34 Pulse Rate 64 07/04/16 05:34 Respiratory Rate 20 07/04/16 05:34 Blood Pressure 124/56 07/04/16 05:34 O2 Sat by Pulse Oximetry (%) 100 07/03/16 22:00 Intake & Output 07/01/16 07/02/16 07/03/16 07/04/16 23:59 23:59 23:59 23:59 Intake Total 1520 3098 3054 700 Output Total 300 900 Balance 1520 2798 2154 700 Weight 299 lb 301 lb 1 oz 298 lb 2 oz Gen: NAD, NGT in place CVS: RRR, No M/R Lungs: CTA, No rales or wheeze Abd: soft, Obese, mild tenderness, + distension Ext: No edema, clubbing or cyanosis : No bladder distension CBC, BMP 07/04/16 05:37 07/04/16 05:37 Current Medications Al Hydroxide/Mg Hydroxide (Mylanta Oral Suspension -) 30 ml PO BID [facility] Last Admin: 07/04/16 10:33 Dose: Not Given Albuterol Sulfate (Ventolin 0.083% Nebulizer Soln -) 1 amp NEB Q6H PRN PRN Reason: SHORT OF BREATH/WHEEZING Aspirin (Ecotrin -) 81 mg PO DAILY [facility] Atorvastatin Calcium (Lipitor -) 20 mg PO HS [facility] Last Admin: 07/03/16 23:38 Dose: 20 mg Carvedilol (Coreg -) 3.125 mg PO BID [facility] Last Admin: 07/04/16 10:32 Dose: Not Given Collagenase (Santyl -) 1 applic TP DAILY [facility] Last Admin: 07/04/16 10:27 Dose: Not Given Cyanocobalamin (Vitamin B12 -) 1,000 mcg PO DAILY [facility] Last Admin: 07/04/16 11:27 Dose: Not Given Epoetin Dawood (Procrit -) 10,000 unit SQ Q7D [facility] Fentanyl (Sublimaze Injection -) 50 mcg IVPUSH [id number] PRN PRN Reason: PAIN Stop: 07/06/16 15:36 Last Admin: 07/03/16 20:30 Dose: 50 mcg Heparin Sodium (Porcine) (Heparin -) 5,000 unit SQ BID [facility] Hydromorphone HCl (Dilaudid Injection -) 1 mg IVPB Q4H PRN PRN Reason: PAIN Last Admin: 07/04/16 08:40 Dose: 1 mg Amino Acids (Clinimix -) 1,000 mls @ 42 mls/hr IV Q23H [facility] Last Admin: 07/04/16 06:38 Dose: 42 mls/hr Lactated Ringer's (Lactated Ringers Solution) 1,000 mls @ 125 mls/hr IV ASDIR [facility] Last Admin: 07/03/16 22:17 Dose: Not Given Insulin Aspart (Novolog Vial Sliding Scale -) 1 vial SQ ACHS [facility] PRN Reason: Protocol Last Admin: 07/04/16 11:26 Dose: 2 units Insulin Detemir (Levemir Vial) 10 units SQ DAILY@0700 [facility] Last Admin: 07/04/16 06:39 Dose: Not Given Isosorbide Mononitrate (Imdur -) 30 mg PO DAILY [facility] Last Admin: 07/04/16 10:23 Dose: 30 mg Levothyroxine Sodium (Synthroid -) 50 mcg PO DAILY@0700 [facility] Last Admin: 07/04/16 06:39 Dose: 50 mcg Lidocaine (Lidoderm Patch -) 1 patch TP DAILY [facility] Last Admin: 07/04/16 10:24 Dose: 1 patch Metoclopramide HCl (Reglan Injection -) 10 mg IVPB Q6H [facility] Last Admin: 07/04/16 08:35 Dose: 10 mg Morphine Sulfate (Morphine Injection -) 1 mg IM Q6H PRN PRN Reason: PAIN Nystatin (Mycostatin Cream -) 1 applic TP BID [facility] Last Admin: 07/04/16 10:25 Dose: 1 applic Ondansetron HCl (Zofran Injection) 8 mg IVPB Q6H PRN PRN Reason: NAUSEA AND/OR VOMITING Oxycodone HCl (Roxicodone -) 5 mg PO Q4H PRN PRN Reason: PAIN LEVEL 6-10 Pantoprazole Sodium (Protonix 40mg Ivpb (Pre-Docked)) 40 mg IVPB BID [facility] Last Admin: 07/04/16 10:19 Dose: 40 mg Piperacillin Sod/Tazobactam Sod (Zosyn 3.375gm Ivpb (Pre-Docked)) 3.375 gm IVPB Q8H-IV J[facility] PRN Reason: Protocol Last Admin: 07/04/16 10:19 Dose: 3.375 gm Polyethylene Glycol (Miralax (For Daily Use) -) 17 gm PO DAILY [facility] Last Admin: 07/04/16 10:24 Dose: Not Given Senna/Docusate Sodium (Pericolace -) 2 tablet PO HS [facility] Last Admin: 07/03/16 22:18 Dose: Not Given Simethicone (Mylicon -) 80 mg PO QID [facility] Last Admin: 07/04/16 10:33 Dose: Not Given A/p 71 year old Woman with PMhx of CKD, CHF, Morbid Obesity, IDDM, Anemia who presented with worsening LE wounds and found to have CRISTELA with BUN/Cr of 90/2.5. #CRISTELA on CKD with Anasarca Renal function with improvement with gentle IVF and discontinuation of diuretics continue clinimix as long pt is npo continue to hold diuretics for now no indication for KOSHER BUTCHER Trend BUN/cr #LE gangrene/PVD s/p left BKA pain control surgical follow up wound care Thank you Lambert Mcnamara
--- NOTE | 2016-07-04 12:03 | PN ---
Progress Note (short form) - Note Progress Note: s/p bka yesterday alert, nad Vital Signs Period Temp Pulse Resp BP Sys/Hagan Pulse Ox Last 24 Hr 97.3 F-98.5 F 58-82 16-20 108-152/38-65 97-100 cor-rrr lungs decreased bs at bases abd soft,nt ext binder left leg CBC, BMP 07/04/16 05:37 07/04/16 05:37 Laboratory Tests 07/04/16 05:37 Random Vancomycin 18.9 a/p continue antibiotics perioperatively pod #1 s/p BKA check vanco level in am continue zosyn ckd DM overall prognosis poor
--- NOTE | 2016-07-04 13:24 | PN ---
Progress Note (short form) - Note Progress Note: Anesthesia POD#1 S/P left BKA under spinal anesthesia Patient is awake,oriented,VSS,no N/V. No complications to anesthesia seen. Malathi Prater.
--- NOTE | 2016-07-04 14:23 | PN ---
Progress Note, Physician Chief Complaint: s/p postop L BKA awake alert NAD has pain at the surgical site but overall better than before BKA - Current Medication List Current Medications: Active Medications Al Hydroxide/Mg Hydroxide (Mylanta Oral Suspension -) 30 ml PO BID [facility] Last Admin: 07/04/16 10:33 Dose: Not Given Albuterol Sulfate (Ventolin 0.083% Nebulizer Soln -) 1 amp NEB Q6H PRN PRN Reason: SHORT OF BREATH/WHEEZING Aspirin (Ecotrin -) 81 mg PO DAILY [facility] Atorvastatin Calcium (Lipitor -) 20 mg PO HS [facility] Last Admin: 07/03/16 23:38 Dose: 20 mg Carvedilol (Coreg -) 3.125 mg PO BID [facility] Last Admin: 07/04/16 10:32 Dose: Not Given Collagenase (Santyl -) 1 applic TP DAILY [facility] Last Admin: 07/04/16 10:27 Dose: Not Given Cyanocobalamin (Vitamin B12 -) 1,000 mcg PO DAILY [facility] Last Admin: 07/04/16 11:27 Dose: Not Given Epoetin Dawood (Procrit -) 10,000 unit SQ Q7D [facility] Fentanyl (Sublimaze Injection -) 50 mcg IVPUSH [id number] PRN PRN Reason: PAIN Stop: 07/06/16 15:36 Last Admin: 07/03/16 20:30 Dose: 50 mcg Heparin Sodium (Porcine) (Heparin -) 5,000 unit SQ BID [facility] Hydromorphone HCl (Dilaudid Injection -) 1 mg IVPB Q4H PRN PRN Reason: PAIN Last Admin: 07/04/16 11:59 Dose: 1 mg Amino Acids (Clinimix -) 1,000 mls @ 42 mls/hr IV Q23H [facility] Last Admin: 07/04/16 06:38 Dose: 42 mls/hr Lactated Ringer's (Lactated Ringers Solution) 1,000 mls @ 125 mls/hr IV ASDIR [facility] Last Admin: 07/03/16 22:17 Dose: Not Given Piperacillin Sod/Tazobactam Sod (Zosyn 2.25gm Ivpb (Pre-Docked)) 50 mls @ 100 mls/hr IVPB Q8H-IV [facility] PRN Reason: Protocol Insulin Aspart (Novolog Vial Sliding Scale -) 1 vial SQ ACHS [facility] PRN Reason: Protocol Last Admin: 07/04/16 11:26 Dose: 2 units Insulin Detemir (Levemir Vial) 10 units SQ DAILY@0700 [facility] Last Admin: 07/04/16 06:39 Dose: Not Given Isosorbide Mononitrate (Imdur -) 30 mg PO DAILY [facility] Last Admin: 07/04/16 10:23 Dose: 30 mg Levothyroxine Sodium (Synthroid -) 50 mcg PO DAILY@0700 [facility] Last Admin: 07/04/16 06:39 Dose: 50 mcg Lidocaine (Lidoderm Patch -) 1 patch TP DAILY [facility] Last Admin: 07/04/16 10:24 Dose: 1 patch Metoclopramide HCl (Reglan Injection -) 10 mg IVPB Q6H [facility] Last Admin: 07/04/16 13:50 Dose: 10 mg Morphine Sulfate (Morphine Injection -) 1 mg IM Q6H PRN PRN Reason: PAIN Nystatin (Mycostatin Cream -) 1 applic TP BID [facility] Last Admin: 07/04/16 10:25 Dose: 1 applic Ondansetron HCl (Zofran Injection) 8 mg IVPB Q6H PRN PRN Reason: NAUSEA AND/OR VOMITING Oxycodone HCl (Roxicodone -) 5 mg PO Q4H PRN PRN Reason: PAIN LEVEL 6-10 Pantoprazole Sodium (Protonix 40mg Ivpb (Pre-Docked)) 40 mg IVPB BID [facility] Last Admin: 07/04/16 10:19 Dose: 40 mg Polyethylene Glycol (Miralax (For Daily Use) -) 17 gm PO DAILY [facility] Last Admin: 07/04/16 10:24 Dose: Not Given Senna/Docusate Sodium (Pericolace -) 2 tablet PO HS [facility] Last Admin: 07/03/16 22:18 Dose: Not Given Simethicone (Mylicon -) 80 mg PO QID [facility] Last Admin: 07/04/16 10:33 Dose: Not Given - Objective Vital Signs: Vital Signs Temperature 98.6 F 07/04/16 10:00 Pulse Rate 68 07/04/16 10:00 Respiratory Rate 18 07/04/16 10:00 Blood Pressure 128/52 07/04/16 10:00 O2 Sat by Pulse Oximetry (%) 98 07/04/16 10:00 Constitutional: Yes: No Distress, Calm Eyes: Yes: Conjunctiva Clear HENT: Yes: Atraumatic Neck: Yes: Supple Cardiovascular: Yes: Regular Rate and Rhythm Respiratory: Yes: Diminished Gastrointestinal: Yes: Soft. No: Distention, Tenderness Musculoskeletal: Yes: Other (L BKA). No: Joint Stiffness, Joint Swelling Edema: Yes (RLE ) Integumentary: Yes: Venous Stasis Changes Neurological: Yes: Alert, Oriented Psychiatric: Yes: Alert, Oriented. No: Agitated Labs: CBC, BMP 07/04/16 05:37 07/04/16 05:37 INR, PTT INR 1.28 (0.82-1.09) H 07/03/16 05:45 - ....Imaging Other: Report Reviewed Assessment/Plan The patient is a 71 year old female with significant past medical history of hypertension, hyperlipidemia, diabetes, CAD, CHF, MIx2, COPD (O2 dependent 2L), and renal insufficiency who presents to the emergency department sent from wound care by Dr. Alonso for further evaluation of a left lower extremity wound. Nonhealing after ATB and HBO tx. Pt nonambulatory for years senior living NHR; DNR DNI but she agreed to have intubation if needed for general anesthesia active issues: s/p L BKA for L foot gangrene; stable h/o ARF on CRF, anemia gastroparesis; COPD respiratory failure, CHF volume overload; anemia; morbid obesity; cardio, GI, renal f/u clinimix iv 42 cc/h IV ATB per ID; NGT still in wound stump care per vascular sx; gastric DVT aspiration PFX pain meds prn f/u labs and xrays prognosis guarded d/w pt and staff d/w pt's sister
--- NOTE | 2016-07-04 14:31 | PN ---
Progress Note (short form) - Note Progress Note: PULMONARY s/p L BKA. Denies shortness of breath or chest pain. Last Vital Signs Temp Pulse Resp BP Pulse Ox 98.6 F 68 18 128/52 98 07/04/16 10:00 07/04/16 10:00 07/04/16 10:00 07/04/16 10:00 07/04/16 10:00 Gen: NAD at rest Heart: RRR Lung: decreased breath sounds at the bases Abd: soft, nontender Ext: + edema, LLE in binder CBC, BMP 07/04/16 05:37 07/04/16 05:37 Active Medications Al Hydroxide/Mg Hydroxide (Mylanta Oral Suspension -) 30 ml PO BID [facility] Last Admin: 07/04/16 10:33 Dose: Not Given Albuterol Sulfate (Ventolin 0.083% Nebulizer Soln -) 1 amp NEB Q6H PRN PRN Reason: SHORT OF BREATH/WHEEZING Aspirin (Ecotrin -) 81 mg PO DAILY [facility] Atorvastatin Calcium (Lipitor -) 20 mg PO HS [facility] Last Admin: 07/03/16 23:38 Dose: 20 mg Carvedilol (Coreg -) 3.125 mg PO BID [facility] Last Admin: 07/04/16 10:32 Dose: Not Given Collagenase (Santyl -) 1 applic TP DAILY [facility] Last Admin: 07/04/16 10:27 Dose: Not Given Cyanocobalamin (Vitamin B12 -) 1,000 mcg PO DAILY [facility] Last Admin: 07/04/16 11:27 Dose: Not Given Epoetin Dawood (Procrit -) 10,000 unit SQ Q7D [facility] Fentanyl (Sublimaze Injection -) 50 mcg IVPUSH [id number] PRN PRN Reason: PAIN Stop: 07/06/16 15:36 Last Admin: 07/03/16 20:30 Dose: 50 mcg Heparin Sodium (Porcine) (Heparin -) 5,000 unit SQ BID [facility] Hydromorphone HCl (Dilaudid Injection -) 1 mg IVPB Q4H PRN PRN Reason: PAIN Last Admin: 07/04/16 11:59 Dose: 1 mg Amino Acids (Clinimix -) 1,000 mls @ 42 mls/hr IV Q23H [facility] Last Admin: 07/04/16 06:38 Dose: 42 mls/hr Lactated Ringer's (Lactated Ringers Solution) 1,000 mls @ 125 mls/hr IV ASDIR [facility] Last Admin: 07/03/16 22:17 Dose: Not Given Piperacillin Sod/Tazobactam Sod (Zosyn 2.25gm Ivpb (Pre-Docked)) 50 mls @ 100 mls/hr IVPB Q8H-IV [facility] PRN Reason: Protocol Insulin Aspart (Novolog Vial Sliding Scale -) 1 vial SQ ACHS [facility] PRN Reason: Protocol Last Admin: 07/04/16 11:26 Dose: 2 units Insulin Detemir (Levemir Vial) 10 units SQ DAILY@0700 [facility] Last Admin: 07/04/16 06:39 Dose: Not Given Isosorbide Mononitrate (Imdur -) 30 mg PO DAILY [facility] Last Admin: 07/04/16 10:23 Dose: 30 mg Levothyroxine Sodium (Synthroid -) 50 mcg PO DAILY@0700 [facility] Last Admin: 07/04/16 06:39 Dose: 50 mcg Lidocaine (Lidoderm Patch -) 1 patch TP DAILY [facility] Last Admin: 07/04/16 10:24 Dose: 1 patch Metoclopramide HCl (Reglan Injection -) 10 mg IVPB Q6H [facility] Last Admin: 07/04/16 13:50 Dose: 10 mg Morphine Sulfate (Morphine Injection -) 1 mg IM Q6H PRN PRN Reason: PAIN Nystatin (Mycostatin Cream -) 1 applic TP BID [facility] Last Admin: 07/04/16 10:25 Dose: 1 applic Ondansetron HCl (Zofran Injection) 8 mg IVPB Q6H PRN PRN Reason: NAUSEA AND/OR VOMITING Oxycodone HCl (Roxicodone -) 5 mg PO Q4H PRN PRN Reason: PAIN LEVEL 6-10 Pantoprazole Sodium (Protonix 40mg Ivpb (Pre-Docked)) 40 mg IVPB BID [facility] Last Admin: 07/04/16 10:19 Dose: 40 mg Polyethylene Glycol (Miralax (For Daily Use) -) 17 gm PO DAILY [facility] Last Admin: 07/04/16 10:24 Dose: Not Given Senna/Docusate Sodium (Pericolace -) 2 tablet PO HS [facility] Last Admin: 07/03/16 22:18 Dose: Not Given Simethicone (Mylicon -) 80 mg PO QID [facility] Last Admin: 07/04/16 10:33 Dose: Not Given A/P Left Foot Gangrene s/p L BKA Chronic Hypoxic and Hypercapneic Respiratory Failure Acute on Chronic Renal Failure Morbid Obesity MIRIAM/OHS Volume Overload - on clinimix - monitor urine output, creatinine - O2 to keep SpO2 >88% - pain control - incentive spirometry - BiPAP at night and PRN during day - DVT prophylaxis
--- NOTE | 2016-07-04 16:31 | PN ---
Progress Note (short form) - Note Progress Note: POD#1 Pt with complaints of pain at left leg amputation site Vital Signs Period Temp Pulse Resp BP Sys/Hagan Pulse Ox Last 24 Hr 97.3 F-98.6 F 58-80 16-20 108-152/38-62 97-100 PE: GEN; A&0x3, NAD Left Leg: dressing c/d/i with coban. Knee immobilizer in place. CBC, BMP 07/04/16 05:37 07/04/ 05:37 A/P: s/p L BKA, POD#1 pain managment as needed for pain Continue left knee immoblizer and will remove dressing on friday
[2016-07-04] MEDS: PIPERACILLIN/TAZOB 2.25 GM 50 ML IVPB SCH (17:37)
[2016-07-04] MEDS ORDERED: SODIUM PHOSPHATE/NA BIPHOS 133 ML ENEMA PR ONE (21:02)
--- NOTE | 2016-07-04 21:02 | PN ---
GI Progress Note Subjective: GASTROENTEROLOGY NO BM FOR 5 DAYS PAIN AT SURGICAL SITE NGT MINIMAL OUTPUT - Objective Vital Signs: Vital Signs Temperature 97.6 F 07/04/16 20:52 Pulse Rate 76 07/04/16 20:52 Respiratory Rate 20 07/04/16 20:52 Blood Pressure 135/54 07/04/16 20:52 O2 Sat by Pulse Oximetry (%) 100 07/04/16 20:52 Constitutional: No Distress Eyes: Yes: Conjunctiva Clear HENT: Yes: WNL Cardiovascular: Yes: WNL Respiratory: Yes: WNL Gastrointestinal Inspection: Yes: Distention ...Auscultate: Yes: Hypoactive Bowel Sounds ...Palpate: Yes: Other (FULL, NONTENDER) Extremities: Yes: Amputation Labs: CBC, BMP 07/04/16 05:37 07/04/16 05:37 INR, PTT INR 1.28 (0.82-1.09) H 07/03/16 05:45 Problem List - Problems (1) Diabetic gastroparesis Assessment/Plan: ALSO COMPONENT OF HYPOTHYROIDISM (WILL DELAY IMPROVEMENT) CT SCAN WITH CONTRAST VIA NGT FRIDAY AXR NOT TOO HELPFUL ENTIRE ABDOMEN NOT SEEN ON FILM Code(s): E11.43 - TYPE 2 DIABETES W DIABETIC AUTONOMIC (POLY)NEUROPATHY K31.84 - GASTROPARESIS (2) Constipation by delayed colonic transit Assessment/Plan: FLEET ENEMAS TONIGHT AND IN AM Code(s): K59.01 - SLOW TRANSIT CONSTIPATION (3) Acute on chronic renal failure Code(s): N17.9 - ACUTE KIDNEY FAILURE, UNSPECIFIED N18.9 - CHRONIC KIDNEY DISEASE, UNSPECIFIED (4) Diabetes Code(s): E11.9 - TYPE 2 DIABETES MELLITUS WITHOUT COMPLICATIONS (5) Fluid overload Code(s): E87.70 - FLUID OVERLOAD, UNSPECIFIED (6) Gangrene Code(s): I96 - GANGRENE, NOT ELSEWHERE CLASSIFIED (7) Pulmonary hypertension Code(s): I27.2 - OTHER SECONDARY PULMONARY HYPERTENSION (8) Ulcer of foot Code(s): L97.509 - NON-PRESSURE CHRONIC ULCER OTH PRT UNSP FOOT W UNSP SEVERITY Qualifiers: Laterality: left Non-pressure ulcer stage: with fat layer exposed Qualified Code(s): L97.522 - Non-pressure chronic ulcer of other part of left foot with fat layer exposed (9) Anemia Code(s): D64.9 - ANEMIA, UNSPECIFIED Qualifiers: Anemia type: unspecified type Qualified Code(s): D64.9 - Anemia, unspecified (10) CAD (coronary artery disease) Code(s): I25.10 - ATHSCL HEART DISEASE OF [place] CORONARY ARTERY W/O ANG PCTRS Qualifiers: Coronary Disease-Associated Artery/Lesion type: unspecified vessel or lesion type [place] vs. transplanted heart: [place] heart Associated angina: without angina Qualified Code(s): I25.10 - Atherosclerotic heart disease of [place] coronary artery without angina pectoris (11) CHF (congestive heart failure) Code(s): I50.9 - HEART FAILURE, UNSPECIFIED Qualifiers: Congestive heart failure type: unspecified congestive heart failure type Congestive heart failure chronicity: acute on chronic Qualified Code(s): I50.9 - Heart failure, unspecified (12) Constipation Code(s): K59.00 - CONSTIPATION, UNSPECIFIED (13) MIRIAM (obstructive sleep apnea) Code(s): G47.33 - OBSTRUCTIVE SLEEP APNEA (ADULT) (PEDIATRIC) (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
[2016-07-04] MEDS: LACTATED RINGERS SOLUTION 1,000 ML IV SCH (21:41)
[2016-07-04] MEDS: ATORVASTATIN CA 20 MG TABLET (FP) PO SCH (22:10)
[2016-07-04] MEDS: SENNOSIDES/DOCUSATE COMBO (SENNA PLUS) TABLET (UD) PO SCH (22:11)
[2016-07-05] MEDS: PIPERACILLIN/TAZOB 2.25 GM 50 ML IVPB SCH ×3 (02:10→18:28)
[2016-07-05] MEDS: HYDROmorphone HCL CARPU-JECT 1 MG/1 ML DISP.SYRIN IVPB PRN ×5 (02:31→22:38)
[2016-07-05] MEDS: METOCLOPRAMIDE HCL INJECTION 10 MG/2 ML VIAL IVPB SCH ×4 (02:32→22:35)
[2016-07-05] MEDS: AMINO ACIDS 4.25%/D5W 1,000 ML IV SCH (06:33)
[2016-07-05] MEDS: INSULIN DETEMIR 100 UNITS/ML MDV SQ SCH (06:33)
[2016-07-05] MEDS: INSULIN SLIDING SCALE (NOVOLOG) 1 VIAL SQ SCH ×4 (06:36→22:38)
[2016-07-05] MEDS: LEVOTHYROXINE NA 50 MCG TABLET (FP) PO SCH (06:36)
[2016-07-05 07:51] LABS: BASOPHIL 1.1 % (0-2.0); EOSINOPHIL 0.1 % (0-4.5); MCH 28.3 pg (25.7-33.7); MEAN CELL VOLUME 88.4 fl (80-96); MEAN PLT VOLUME 8.8 fl (7.5-11.1); NEUTROPHILS 86.1 % (42.8-82.8); PLATELET COUNT 177 K/MM3 (134-434); RDW 16.1 % (11.6-15.6); WHITE BLOOD COUNT 12.8 K/mm3 (4.0-10.0)
[2016-07-05 08:33] LABS: ALBUMIN 1.8 g/dl (3.4-5.0); ALK PHOS 60 U/L (45-117); ANION GAP 12 (8-16); BILIRUBIN,TOTAL 0.6 mg/dL (0.2-1.0); CALCIUM 7.9 mg/dL (8.5-10.1); CO2 26 mmol/L (21-32); CREATININE 2.5 mg/dL (0.55-1.02); GLUCOSE,RANDOM 182 mg/dL (74-106); MAGNESIUM 2.2 mg/dL (1.8-2.4); PHOSPHOROUS 4.7 mg/dL (2.5-4.9); SGPT/ALT < 6 U/L (12-78); TOT PROT 5.8 g/dl (6.4-8.2)
[2016-07-05 08:38] LABS: SGOT/AST 4 U/L (15-37)
[2016-07-05] MEDS ORDERED: PT OWN MED DRAWER 7, Y5N ONE (09:35)
[2016-07-05] MEDS: ISOSORBIDE MONONITRATE 30 MG TAB.SR.24H (FP) PO SCH (09:52)
[2016-07-05] MEDS: HEPARIN NA (PORCINE) 5,000 UNITS/ML 1ML VIAL SQ SCH ×2 (09:52→22:38)
[2016-07-05] MEDS: MAG HYDROX/AL HYDROX/SIMETH 30 ML UNIT-DOSE CUP PO SCH ×2 (09:52→22:23)
[2016-07-05] MEDS: ASPIRIN COATED 81 MG TABLET.EC PO SCH (09:52)
[2016-07-05] MEDS: PANTOPRAZOLE SODIUM 40 MG/100 ML PRE-DOCKED IVPB SCH ×2 (09:52→22:22)
[2016-07-05] MEDS: SIMETHICONE 80 MG TAB.CHEW (FP) PO SCH ×4 (09:52→22:22)
[2016-07-05] MEDS: CARVEDILOL 3.125 MG TABLET (FP) PO SCH ×2 (09:52→22:22)
[2016-07-05] MEDS: CYANOCOBALAMIN 1,000 MCG TABLET (FP) PO SCH (09:52)
[2016-07-05] MEDS: LIDOCAINE 5% TOPICAL PATCH TP SCH (09:53)
[2016-07-05] MEDS: POLYETHYLENE GLYCOL 3350 119 GM BTL PO SCH (09:54)
[2016-07-05] MEDS: NYSTATIN 100,000 UNIT/GM TOPICAL CREAM 15 GM TUBE TP SCH ×2 (09:55→22:24)
--- NOTE | 2016-07-05 10:40 | PN ---
Progress Note (short form) - Note Progress Note: s: no cp sob palps dizzy. s/p bka 3/8 Current Medications Generic Name Dose Route Start Last Admin Trade Name Freq PRN Reason Stop Dose Admin Al Hydroxide/Mg Hydroxide 30 ml 07/03/16 22:00 07/05/16 09:52 Mylanta Oral Suspension - PO 30 ml BID JESÚS Administration Albuterol Sulfate 1 amp 07/03/16 20:31 Ventolin 0.083% Nebulizer Soln - NEB Q6H PRN SHORT OF BREATH/WHEEZING Aspirin 81 mg 07/04/16 10:00 07/05/16 09:52 Ecotrin - PO 81 mg DAILY JESÚS Administration Atorvastatin Calcium 20 mg 07/03/16 22:00 07/04/16 22:10 Lipitor - PO 20 mg HS JESÚS Administration Carvedilol 3.125 mg 07/03/16 22:00 07/05/16 09:52 Coreg - PO 3.125 mg BID JESÚS Administration Collagenase 1 applic 07/04/16 10:00 07/04/16 10:27 Santyl - TP Not Given DAILY JESÚS Cyanocobalamin 1,000 mcg 07/04/16 10:00 07/05/16 09:52 Vitamin B12 - PO 1,000 mcg DAILY JESÚS Administration Epoetin Dawood 10,000 unit 07/10/16 19:00 Procrit - SQ Q7D [facility] Fentanyl 50 mcg 07/03/16 20:31 07/03/16 20:30 Sublimaze Injection - IVPUSH 07/06/16 15:36 50 mcg [id number] PRN Administration PAIN Heparin Sodium (Porcine) 5,000 unit 07/03/16 22:00 07/05/16 09:52 Heparin - SQ 5,000 unit BID JESÚS Administration Hydromorphone HCl 1 mg 07/03/16 19:01 07/05/16 08:44 Dilaudid Injection - IVPB 1 mg Q4H PRN Administration PAIN Amino Acids 1,000 mls @ 42 mls/hr 07/04/16 04:00 07/05/16 06:33 Clinimix - IV 42 mls/hr Q23H JESÚS Administration Lactated Ringer's 1,000 mls @ 125 mls/hr 07/03/16 20:31 07/04/16 21:41 Lactated Ringers Solution IV Not Given ASDIR JESÚS Piperacillin Sod/Tazobactam Sod 50 mls @ 100 mls/hr 07/04/16 18:00 07/05/16 09: 52 Zosyn 2.25gm Ivpb (Pre-Docked) IVPB 100 mls/hr Q8H-IV JESÚS Administration Protocol Insulin Aspart 1 vial 07/03/16 22:00 07/05/16 06:36 Novolog Vial Sliding Scale - SQ Not Given ACHS JESÚS Protocol Insulin Detemir 10 units 07/04/16 07:00 07/05/16 06:33 Levemir Vial SQ Not Given DAILY@0700 JESÚS Isosorbide Mononitrate 30 mg 07/04/16 10:00 07/05/16 09:52 Imdur - PO 30 mg DAILY JESÚS Administration Levothyroxine Sodium 50 mcg 07/04/16 07:00 07/05/16 06:36 Synthroid - PO 50 mcg DAILY@0700 JESÚS Administration Lidocaine 1 patch 07/04/16 10:00 07/05/16 09:53 Lidoderm Patch - TP 1 patch DAILY JESÚS Administration Metoclopramide HCl 10 mg 07/04/16 01:45 07/05/16 08:00 Reglan Injection - IVPB 10 mg Q6H JESÚS Administration Morphine Sulfate 1 mg 07/03/16 20:31 Morphine Injection - IM Q6H PRN PAIN Nystatin 1 applic 07/03/16 22:00 07/05/16 09:55 Mycostatin Cream - TP 1 applic BID JESÚS Administration Ondansetron HCl 8 mg 07/03/16 20:31 Zofran Injection IVPB Q6H PRN NAUSEA AND/OR VOMITING Oxycodone HCl 5 mg 07/03/16 20:31 Roxicodone - PO Q4H PRN PAIN LEVEL 6-10 Pantoprazole Sodium 40 mg 07/03/16 22:00 07/05/16 09:52 Protonix 40mg Ivpb (Pre-Docked) IVPB 40 mg BID JESÚS Administration Polyethylene Glycol 17 gm 07/04/16 10:00 07/05/16 09:54 Miralax (For Daily Use) - PO 17 grams DAILY JESÚS Administration Senna/Docusate Sodium 2 tablet 07/03/16 22:00 07/04/16 22:11 Pericolace - PO 2 tablet HS JESÚS Administration Simethicone 80 mg 07/03/16 22:00 07/05/16 09:52 Mylicon - PO 80 mg QID JESÚS Administration Vital Signs Period Temp Pulse Resp BP Sys/Hagan Pulse Ox Last 24 Hr 97.1 F-97.6 F 70-84 18-20 135-145/54-75 95-100 Constitutional: Yes: No Distress, Calm, Obese Eyes: No: Sclera Icterus Cardiovascular: Yes: Regular Rate and Rhythm, S1, S2, Other (PMI displaced). No: JVD (tds habitus,) 2/6 sys murmur at apex Gallop Respiratory: Yes: diminished air movement, poor effort. No: Accessory Muscle Use Gastrointestinal: Yes: Normal Bowel Sounds (tds exam (++ obese)), Soft. No: Tenderness Extremities: No: Cold Edema: Yes indurated and 1+ dependent edema to pannus; left bka Integumentary: No: Jaundice diaphoresis Neurological: Yes: Alert, Oriented (x3) Psychiatric: No: Agitated Labs: CBC, BMP 07/05/16 05:35 07/05/16 05:35 tele: sr, occ pvcs, nsvt 3 beats Echo 07/01/2016: Mild decr EF. paradoxical septal motion with mild HK of anteroseptum. RV not seen. 1+ mr/tr. mild (although MG only 12 mmHg). Echo 06/2015: mild-mod decr EF--global; nl RV; mild LAE; mild-mod MR/TR; RVSP 30- 40; small peric effusion; + pleural eff echo 12/06/15: mild lvh. nl lv/rv, Septal motion c/w RV volume overload. Ab diastology. mild cheryl, mild-mod mr, mild as, mod-sev tr, rvsp 50, mod pericardial eff, no tamponade. pleural effusion. echo 12/11/15: focused, Nl lv. trivial pericardial eff. Pleural effusion. EKG 06/27/16: sr, nl intervals, nonspecific tw changes, no sig change prior a/p: 71 yo with h/o HFpEF, CAD s/p SD, HTN, HL, pHTN, MIRIAM, o2 dep't copd, CKD, IDDM, hypothyroid and chronic LLE cellulitis, here with non healing left foot wound/gangrene. chronic foot wound, gangrene, now s/p bka 07/03/16: -vascular, ID following chronic HFpEF/pulm HTN/venous ins'y/chronic resp failure/acute hypoxic resp failure here: - pt with volume overload during mult prior admits here--vol status is always [id number] to assess given morbidly obese neck hiding JVD, chronic venous ins'y/lymphedema of legs, and chronically very abnormal CXR markings due to overlying soft tissue - cr remains above baseline here, patient NPO with NGT in, suspected CRISTELA from anemia/infection - cont holding diuretics and cautious fluids as doing. - BIPAP prn per pulmonary. - Repeat echo --> unable to visualize RV. (NOTE: SHE HAS HAD SUSPECTED RV DILATION ALREADY ON SOME OF HER PRIOR ECHOES) - pt with mult RFs for PE but creat prohibitive for IV contrast, and she cannot currently cooperate with V/Q; d/w'd dr daily who feels cause of her current decompensation is more likely sec to exacerbation of her chronic lung disease PSVT: -likely brief run of ATach on tele 07/01. no recurrence. CAD, h/o NSTEMI: -has previously refused stress tests. h/o NSTEMI x 2 (2012, 2014) in setting of demand (sepsis/anemia) -MATEO deferred previously due to labile creat's--no change; - cath previously deferred due to: pt preference; hi risk of vascular complications (obese habitus), hi risk of BERNARDINO, and h/o recurrent anemia, possible occult GIB - currently without anginal sx's. EKG unchanged. Con't statin, coreg, asa, imdur CKD/cristela: - baseline creat 1.7-2.0 - renal fxn progressively worsening here--suspected hypoperfusion from cellulitis/anemia -- on IVF here - holding diuretic - cr improving, still above baseline - renal following anemia: -chronic, baseline runs 8s-9s; -freq acute drops/PRBCs in past; currently near baseline HTN: -controlled -/-06/30 with persistent bradycardia--decreased carvedilol to 6.25 mg, then to to 3.125 mg bid. Now improved. gastroparesis: -s/p ngt -GI following
--- NOTE | 2016-07-05 12:30 | PN ---
Progress Note, Physician Chief Complaint: awake alert in bed NAD less pain; c/o being hungry! NGT still in with minimal draiange, will D/w GI to see if DC - Current Medication List Current Medications: Active Medications Al Hydroxide/Mg Hydroxide (Mylanta Oral Suspension -) 30 ml PO BID [facility] Last Admin: 07/05/16 09:52 Dose: 30 ml Albuterol Sulfate (Ventolin 0.083% Nebulizer Soln -) 1 amp NEB Q6H PRN PRN Reason: SHORT OF BREATH/WHEEZING Aspirin (Ecotrin -) 81 mg PO DAILY [facility] Last Admin: 07/05/16 09:52 Dose: 81 mg Atorvastatin Calcium (Lipitor -) 20 mg PO HS [facility] Last Admin: 07/04/16 22:10 Dose: 20 mg Carvedilol (Coreg -) 3.125 mg PO BID [facility] Last Admin: 07/05/16 09:52 Dose: 3.125 mg Collagenase (Santyl -) 1 applic TP DAILY [facility] Last Admin: 07/04/16 10:27 Dose: Not Given Cyanocobalamin (Vitamin B12 -) 1,000 mcg PO DAILY [facility] Last Admin: 07/05/16 09:52 Dose: 1,000 mcg Epoetin Dawood (Procrit -) 10,000 unit SQ Q7D [facility] Fentanyl (Sublimaze Injection -) 50 mcg IVPUSH [id number] PRN PRN Reason: PAIN Stop: 07/06/16 15:36 Last Admin: 07/03/16 20:30 Dose: 50 mcg Heparin Sodium (Porcine) (Heparin -) 5,000 unit SQ BID [facility] Last Admin: 07/05/16 09:52 Dose: 5,000 unit Hydromorphone HCl (Dilaudid Injection -) 1 mg IVPB Q4H PRN PRN Reason: PAIN Last Admin: 07/05/16 08:44 Dose: 1 mg Amino Acids (Clinimix -) 1,000 mls @ 42 mls/hr IV Q23H [facility] Last Admin: 07/05/16 06:33 Dose: 42 mls/hr Lactated Ringer's (Lactated Ringers Solution) 1,000 mls @ 125 mls/hr IV ASDIR [facility] Last Admin: 07/04/16 21:41 Dose: Not Given Piperacillin Sod/Tazobactam Sod (Zosyn 2.25gm Ivpb (Pre-Docked)) 50 mls @ 100 mls/hr IVPB Q8H-IV JESÚS PRN Reason: Protocol Last Admin: 07/05/16 09:52 Dose: 100 mls/hr Insulin Aspart (Novolog Vial Sliding Scale -) 1 vial SQ ACHS [facility] PRN Reason: Protocol Last Admin: 07/05/16 06:36 Dose: Not Given Insulin Detemir (Levemir Vial) 10 units SQ DAILY@0700 [facility] Last Admin: 07/05/16 06:33 Dose: Not Given Isosorbide Mononitrate (Imdur -) 30 mg PO DAILY [facility] Last Admin: 07/05/16 09:52 Dose: 30 mg Levothyroxine Sodium (Synthroid -) 50 mcg PO DAILY@0700 [facility] Last Admin: 07/05/16 06:36 Dose: 50 mcg Lidocaine (Lidoderm Patch -) 1 patch TP DAILY [facility] Last Admin: 07/05/16 09:53 Dose: 1 patch Metoclopramide HCl (Reglan Injection -) 10 mg IVPB Q6H [facility] Last Admin: 07/05/16 08:00 Dose: 10 mg Morphine Sulfate (Morphine Injection -) 1 mg IM Q6H PRN PRN Reason: PAIN Nystatin (Mycostatin Cream -) 1 applic TP BID [facility] Last Admin: 07/05/16 09:55 Dose: 1 applic Ondansetron HCl (Zofran Injection) 8 mg IVPB Q6H PRN PRN Reason: NAUSEA AND/OR VOMITING Oxycodone HCl (Roxicodone -) 5 mg PO Q4H PRN PRN Reason: PAIN LEVEL 6-10 Pantoprazole Sodium (Protonix 40mg Ivpb (Pre-Docked)) 40 mg IVPB BID [facility] Last Admin: 07/05/16 09:52 Dose: 40 mg Polyethylene Glycol (Miralax (For Daily Use) -) 17 gm PO DAILY [facility] Last Admin: 07/05/16 09:54 Dose: 17 grams Senna/Docusate Sodium (Pericolace -) 2 tablet PO HS [facility] Last Admin: 07/04/16 22:11 Dose: 2 tablet Simethicone (Mylicon -) 80 mg PO QID [facility] Last Admin: 07/05/16 09:52 Dose: 80 mg - Objective Vital Signs: Vital Signs Temperature 98.5 F 07/05/16 10:00 Pulse Rate 79 07/05/16 10:00 Respiratory Rate 18 07/05/16 10:00 Blood Pressure 144/76 07/05/16 10:00 O2 Sat by Pulse Oximetry (%) 96 07/05/16 09:00 Constitutional: Yes: No Distress, Calm Eyes: Yes: Conjunctiva Clear HENT: Yes: Atraumatic Neck: Yes: Supple Cardiovascular: Yes: Regular Rate and Rhythm Respiratory: Yes: Diminished Gastrointestinal: Yes: Soft. No: Distention, Tenderness Genitourinary: No: Hematuria Musculoskeletal: No: Joint Stiffness, Joint Swelling Extremities: No: Cold, Cool Edema: Yes (RLE) Integumentary: Yes: Venous Stasis Changes (RLE) Wound/Incision: Yes: Dressing Dry and Intact, Other (L BKA no bleed) Neurological: Yes: Alert, Oriented Psychiatric: Yes: Alert, Oriented. No: Agitated Labs: CBC, BMP 07/05/16 05:35 07/05/16 05:35 INR, PTT INR 1.28 (0.82-1.09) H 07/03/16 05:45 - ....Imaging Other: Report Reviewed Assessment/Plan The patient is a 71 year old female with significant past medical history of hypertension, hyperlipidemia, diabetes, CAD, CHF, MIx2, COPD (O2 dependent 2L), and renal insufficiency who presents to the emergency department sent from wound care by Dr. Alonso for further evaluation of a left lower extremity wound. Nonhealing after ATB and HBO tx. 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
--- NOTE | 2016-07-05 14:02 | PATH ---
Surgical Pathology Report Patient Name: SHANTELL VASQUEZ [facility]. Rec. #: [id number] /Age/Gender: 1945 (Age: 71) / F Account: [id number] Location: 4 W TELEMETRY U Taken: 07/03/2016 Received: 07/04/2016 Reported: 07/05/2016 Physicians: Gaurav Alonso Specimen(s) Received LEFT LOWER EXTREMITY WITH FOOT Clinical History Gangrene of left foot Final Diagnosis LEFT LOWER EXTREMITY, BELOW KNEE AMPUTATION: SKIN, UNDERLYING SOFT TISSUE AND BONE WITH GANGRENOUS NECROSIS. UNDERLYING BONE WITH ASSOCIATED FOCAL ACUTE OSTEOMYELITIS. ARTERIES WITH CALCIFIED ATHEROSCLEROTIC PLAQUES (UP TO 90% FOCAL SEGMENTAL LUMINAL OCCLUSION IN THE ANTERIOR TIBIAL ARTERY). SKIN AND SOFT TISSUE AT RESECTION MARGIN APPEAR VIABLE. BONE AT RESECTION MARGIN APPEARS VIABLE. Electronically Signed Gabriel Allen M.D. Gross Description Received fresh, labeled "left lower extremity with foot below knee" is a 22 cm in length product of a left below the knee amputation specimen. The foot measures 21 cm from heel to toe. There is a 4.5 cm in length exposed portion of tibia and a 6 cm in length exposed portion of fibula at the proximal aspect of the specimen. The entire distal aspect of the foot displays a 19.5 x 8.0 cm black green, ulcerated, gangrenous lesion extending to and involving the underlying bone. The dorsal aspect of the foot displays exposed nerves. There is an additional 2.5 x 1.8 cm black green, ulcerated lesion on the medial aspect of the heel. The lesion is at 7 cm from the skin and soft tissue margin of resection. Sectioning of the vasculature displays focal, segmental calcifying atherosclerosis. Family Practitioner sections are submitted in 8 cassettes as follows: [id number] of third digit, following decalcification; 2-dorsal foot lesion with underlying bone, following decalcification; 3-heel lesion with underlying bone, following decalcification; 4-bone margin, following decalcification; 5-skin and soft tissue margin; 6-anterior tibial artery; 7-posterior tibial artery; 8-dorsalis pedis. /07/04/2016 saudi07/04/2016
--- NOTE | 2016-07-05 14:25 | PN ---
Progress Note (short form) - Note Progress Note: Renal follow up for CRISTELA on CKD Pt seen and examined at the bedside complains of pain in the left foot, reports feeling as if the foot is still there no sob or chest pain Vital Signs Temperature 98.5 F 07/05/16 10:00 Pulse Rate 79 07/05/16 10:00 Respiratory Rate 18 07/05/16 10:00 Blood Pressure 144/76 07/05/16 10:00 O2 Sat by Pulse Oximetry (%) 96 07/05/16 09:00 Intake & Output 07/02/16 07/03/16 07/04/16 07/05/16 23:59 23:59 23:59 23:59 Intake Total 3098 3054 700 Output Total 300 900 110 Balance 2798 2154 700 -110 Weight 301 lb 1 oz 298 lb 2 oz 295 lb Gen: NAD, NGT in place CVS: RRR, No M/R Lungs: CTA, No rales or wheeze Abd: soft, Obese, mild tenderness, + distension Ext: No edema, clubbing or cyanosis : No bladder distension CBC, BMP 07/05/16 05:35 07/05/16 05:35 Current Medications Al Hydroxide/Mg Hydroxide (Mylanta Oral Suspension -) 30 ml PO BID [facility] Last Admin: 07/05/16 09:52 Dose: 30 ml Albuterol Sulfate (Ventolin 0.083% Nebulizer Soln -) 1 amp NEB Q6H PRN PRN Reason: SHORT OF BREATH/WHEEZING Aspirin (Ecotrin -) 81 mg PO DAILY [facility] Last Admin: 07/05/16 09:52 Dose: 81 mg Atorvastatin Calcium (Lipitor -) 20 mg PO HS [facility] Last Admin: 07/04/16 22:10 Dose: 20 mg Carvedilol (Coreg -) 3.125 mg PO BID [facility] Last Admin: 07/05/16 09:52 Dose: 3.125 mg Collagenase (Santyl -) 1 applic TP DAILY [facility] Last Admin: 07/04/16 10:27 Dose: Not Given Cyanocobalamin (Vitamin B12 -) 1,000 mcg PO DAILY [facility] Last Admin: 07/05/16 09:52 Dose: 1,000 mcg Epoetin Dawood (Procrit -) 10,000 unit SQ Q7D [facility] Fentanyl (Sublimaze Injection -) 50 mcg IVPUSH [id number] PRN PRN Reason: PAIN Stop: 07/06/16 15:36 Last Admin: 07/03/16 20:30 Dose: 50 mcg Heparin Sodium (Porcine) (Heparin -) 5,000 unit SQ BID [facility] Last Admin: 07/05/16 09:52 Dose: 5,000 unit Hydromorphone HCl (Dilaudid Injection -) 1 mg IVPB Q4H PRN PRN Reason: PAIN Last Admin: 07/05/16 12:42 Dose: 1 mg Amino Acids (Clinimix -) 1,000 mls @ 42 mls/hr IV Q23H [facility] Last Admin: 07/05/16 06:33 Dose: 42 mls/hr Lactated Ringer's (Lactated Ringers Solution) 1,000 mls @ 125 mls/hr IV ASDIR [facility] Last Admin: 07/04/16 21:41 Dose: Not Given Piperacillin Sod/Tazobactam Sod (Zosyn 2.25gm Ivpb (Pre-Docked)) 50 mls @ 100 mls/hr IVPB Q8H-IV JESÚS PRN Reason: Protocol Last Admin: 07/05/16 09:52 Dose: 100 mls/hr Insulin Aspart (Novolog Vial Sliding Scale -) 1 vial SQ ACHS [facility] PRN Reason: Protocol Last Admin: 07/05/16 12:26 Dose: Not Given Insulin Detemir (Levemir Vial) 10 units SQ DAILY@0700 [facility] Last Admin: 07/05/16 06:33 Dose: Not Given Isosorbide Mononitrate (Imdur -) 30 mg PO DAILY [facility] Last Admin: 07/05/16 09:52 Dose: 30 mg Levothyroxine Sodium (Synthroid -) 50 mcg PO DAILY@0700 [facility] Last Admin: 07/05/16 06:36 Dose: 50 mcg Lidocaine (Lidoderm Patch -) 1 patch TP DAILY [facility] Last Admin: 07/05/16 09:53 Dose: 1 patch Metoclopramide HCl (Reglan Injection -) 10 mg IVPB Q6H [facility] Last Admin: 07/05/16 08:00 Dose: 10 mg Morphine Sulfate (Morphine Injection -) 1 mg IM Q6H PRN PRN Reason: PAIN Nystatin (Mycostatin Cream -) 1 applic TP BID [facility] Last Admin: 07/05/16 09:55 Dose: 1 applic Ondansetron HCl (Zofran Injection) 8 mg IVPB Q6H PRN PRN Reason: NAUSEA AND/OR VOMITING Oxycodone HCl (Roxicodone -) 5 mg PO Q4H PRN PRN Reason: PAIN LEVEL 6-10 Pantoprazole Sodium (Protonix 40mg Ivpb (Pre-Docked)) 40 mg IVPB BID [facility] Last Admin: 07/05/16 09:52 Dose: 40 mg Polyethylene Glycol (Miralax (For Daily Use) -) 17 gm PO DAILY [facility] Last Admin: 07/05/16 09:54 Dose: 17 grams Senna/Docusate Sodium (Pericolace -) 2 tablet PO HS [facility] Last Admin: 07/04/16 22:11 Dose: 2 tablet Simethicone (Mylicon -) 80 mg PO QID [facility] Last Admin: 07/05/16 09:52 Dose: 80 mg A/p 71 year old Woman with PMhx of CKD, CHF, Morbid Obesity, IDDM, Anemia who presented with worsening LE wounds and found to have CRISTELA with BUN/Cr of 90/2.5. 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
--- NOTE | 2016-07-05 14:40 | PN ---
Progress Note (short form) - Note Progress Note: continue with incision pain still with NGT Vital Signs Period Temp Pulse Resp BP Sys/Hagan Pulse Ox Last 24 Hr 97.1 F-98.5 F 70-84 18-20 129-145/54-76 95-100 cor-rrr lungs decresed bs bses abd firm, nt ext +edema of RLE, left leg binder intact CBC, BMP 07/05/16 05:35 07/05/16 05:35 vanco trough pending a/p s/p amputation for gangrene of the foot- vanco/ken POD #2 for dressing change in am, will d/c antibiotics in am if okay with surgery diabetes CKD gastroparesis obesity
[2016-07-05] MEDS: COLLAGENASE CLOSTRIDIUM HIST. 30 GRAMS TUBE TP SCH (14:45)
[2016-07-05] MEDS ORDERED: MAGNESIUM HYDROX 2400MG/30ML ORAL SUSPENSION 30 ML CUP NGT ONE (20:32)
[2016-07-05] MEDS ORDERED: MINERAL OIL ENEMA 133 ML ENEMA PR ONE (20:32)
--- NOTE | 2016-07-05 20:56 | PN ---
GI Progress Note Subjective: GASTROENTEROLOGY NO CLINICAL CHANGE CT SCAN DONE AWAIT OFFICIAL READING TO ME IT DOES NOT APPEAR TO BE OBSTRUCTED , HAS ASCITES - Objective Vital Signs: Vital Signs Temperature 97.3 F L 07/05/16 17:00 Pulse Rate 71 07/05/16 17:00 Respiratory Rate 20 07/05/16 17:00 Blood Pressure 126/66 07/05/16 17:00 O2 Sat by Pulse Oximetry (%) 96 07/05/16 09:00 Constitutional: Calm Eyes: Yes: Conjunctiva Clear HENT: Yes: Normocephalic, Other (NGT) Cardiovascular: Yes: Regular Rate and Rhythm Respiratory: Yes: Regular Gastrointestinal Inspection: Yes: Ascites, Distention, Other (ANASARCA) ...Auscultate: Yes: Normoactive Bowel Sounds ...Palpate: Yes: Other (ABDOMINAL WALL THICKNESS AND EDEMA) Extremities: Yes: Amputation Labs: CBC, BMP 07/05/16 05:35 07/05/16 05:35 INR, PTT INR 1.28 (0.82-1.09) H 07/03/16 05:45 Problem List - Problems (1) Diabetic gastroparesis Assessment/Plan: AWAITING OFFICIAL READING ON CT SCAN , IF NO OBSTRUCTION D/C NGT AND START FULL LIQUID DIET, CONTINUE REGLAN, GIVE FLEET ENEMA AND MOM TONIGHT Code(s): E11.43 - TYPE 2 DIABETES W DIABETIC AUTONOMIC (POLY)NEUROPATHY K31.84 - GASTROPARESIS (2) Visceral diabetic neuropathy Code(s): E11.43 - TYPE 2 DIABETES W DIABETIC AUTONOMIC (POLY)NEUROPATHY (3) Anasarca associated with disorder of kidney Code(s): N04.9 - NEPHROTIC SYNDROME WITH UNSPECIFIED MORPHOLOGIC CHANGES (4) Other fluid overload Code(s): E87.79 - OTHER FLUID OVERLOAD (5) Constipation by delayed colonic transit Code(s): K59.01 - SLOW TRANSIT CONSTIPATION (6) Acute on chronic renal failure Code(s): N17.9 - ACUTE KIDNEY FAILURE, UNSPECIFIED N18.9 - CHRONIC KIDNEY DISEASE, UNSPECIFIED (7) Diabetes Code(s): E11.9 - TYPE 2 DIABETES MELLITUS WITHOUT COMPLICATIONS (8) Fluid overload Code(s): E87.70 - FLUID OVERLOAD, UNSPECIFIED (9) Gangrene Code(s): I96 - GANGRENE, NOT ELSEWHERE CLASSIFIED (10) Pulmonary hypertension Code(s): I27.2 - OTHER SECONDARY PULMONARY HYPERTENSION (11) Ulcer of foot Code(s): L97.509 - NON-PRESSURE CHRONIC ULCER OTH PRT UNSP FOOT W UNSP SEVERITY Qualifiers: Laterality: left Non-pressure ulcer stage: with fat layer exposed Qualified Code(s): L97.522 - Non-pressure chronic ulcer of other part of left foot with fat layer exposed (12) Anemia Code(s): D64.9 - ANEMIA, UNSPECIFIED Qualifiers: Anemia type: unspecified type Qualified Code(s): D64.9 - Anemia, unspecified (13) CAD (coronary artery disease) Code(s): I25.10 - ATHSCL HEART DISEASE OF [place] CORONARY ARTERY W/O ANG PCTRS Qualifiers: Coronary Disease-Associated Artery/Lesion type: unspecified vessel or lesion type [place] vs. transplanted heart: [place] heart Associated angina: without angina Qualified Code(s): I25.10 - Atherosclerotic heart disease of [place] coronary artery without angina pectoris (14) CHF (congestive heart failure) Code(s): I50.9 - HEART FAILURE, UNSPECIFIED Qualifiers: Congestive heart failure type: unspecified congestive heart failure type Congestive heart failure chronicity: acute on chronic Qualified Code(s): I50.9 - Heart failure, unspecified (15) Constipation Code(s): K59.00 - CONSTIPATION, UNSPECIFIED (16) MIRIAM (obstructive sleep apnea) Code(s): G47.33 - OBSTRUCTIVE SLEEP APNEA (ADULT) (PEDIATRIC)
[2016-07-05] MEDS: ATORVASTATIN CA 20 MG TABLET (FP) PO SCH (22:22)
[2016-07-05] MEDS: SENNOSIDES/DOCUSATE COMBO (SENNA PLUS) TABLET (UD) PO SCH (22:34)
[2016-07-06] MEDS: PIPERACILLIN/TAZOB 2.25 GM 50 ML IVPB SCH ×2 (01:21→10:06)
[2016-07-06] MEDS: METOCLOPRAMIDE HCL INJECTION 10 MG/2 ML VIAL IVPB SCH ×4 (04:05→22:35)
[2016-07-06] MEDS: AMINO ACIDS 4.25%/D5W 1,000 ML IV SCH (06:30)
[2016-07-06] MEDS: LEVOTHYROXINE NA 50 MCG TABLET (FP) PO SCH (06:32)
[2016-07-06] MEDS: INSULIN SLIDING SCALE (NOVOLOG) 1 VIAL SQ SCH ×3 (06:32→22:38)
[2016-07-06] MEDS: INSULIN DETEMIR 100 UNITS/ML MDV SQ SCH (06:33)
[2016-07-06] MEDS: HYDROmorphone HCL CARPU-JECT 1 MG/1 ML DISP.SYRIN IVPB PRN ×3 (06:39→22:37)
[2016-07-06 08:02] LABS: BASOPHIL 0.8 % (0-2.0); EOSINOPHIL 2.1 % (0-4.5); MCH 28.9 pg (25.7-33.7); MCHC 32.3 g/dl (32.0-36.0); MEAN CELL VOLUME 89.5 fl (80-96); MEAN PLT VOLUME 8.7 fl (7.5-11.1); NEUTROPHILS 76.9 % (42.8-82.8); PLATELET COUNT 168 K/MM3 (134-434); RDW 16.3 % (11.6-15.6); WHITE BLOOD COUNT 9.1 K/mm3 (4.0-10.0)
[2016-07-06 08:36] LABS: ALBUMIN 1.9 g/dl (3.4-5.0); BILIRUBIN,TOTAL 0.6 mg/dL (0.2-1.0); CALCIUM 8.2 mg/dL (8.5-10.1); CREATININE 2.4 mg/dL (0.55-1.02)
[2016-07-06] MEDS: HEPARIN NA (PORCINE) 5,000 UNITS/ML 1ML VIAL SQ SCH ×2 (10:06→22:36)
[2016-07-06] MEDS: PANTOPRAZOLE SODIUM 40 MG/100 ML PRE-DOCKED IVPB SCH ×2 (10:06→22:36)
[2016-07-06] MEDS: LIDOCAINE 5% TOPICAL PATCH TP SCH (10:06)
[2016-07-06] MEDS: CARVEDILOL 3.125 MG TABLET (FP) PO SCH ×2 (10:08→22:35)
[2016-07-06] MEDS: ISOSORBIDE MONONITRATE 30 MG TAB.SR.24H (FP) PO SCH (10:08)
[2016-07-06] MEDS: CYANOCOBALAMIN 1,000 MCG TABLET (FP) PO SCH (10:08)
[2016-07-06] MEDS: MAG HYDROX/AL HYDROX/SIMETH 30 ML UNIT-DOSE CUP PO SCH ×2 (10:09→22:35)
[2016-07-06] MEDS: POLYETHYLENE GLYCOL 3350 119 GM BTL PO SCH (10:09)
[2016-07-06] MEDS: SIMETHICONE 80 MG TAB.CHEW (FP) PO SCH ×3 (10:09→22:34)
[2016-07-06] MEDS: NYSTATIN 100,000 UNIT/GM TOPICAL CREAM 15 GM TUBE TP SCH ×2 (10:09→22:36)
[2016-07-06] MEDS: ASPIRIN COATED 81 MG TABLET.EC PO SCH (10:09)
--- NOTE | 2016-07-06 10:21 | PN ---
Progress Note (short form) - Note Progress Note: s: no cp sob palps dizzy. s/p bka 3/8 Current Medications Generic Name Dose Route Start Last Admin Trade Name Freq PRN Reason Stop Dose Admin Al Hydroxide/Mg Hydroxide 30 ml 07/03/16 22:00 07/06/16 10:09 Mylanta Oral Suspension - PO 30 ml BID JESÚS Administration Albuterol Sulfate 1 amp 07/03/16 20:31 Ventolin 0.083% Nebulizer Soln - NEB Q6H PRN SHORT OF BREATH/WHEEZING Aspirin 81 mg 07/04/16 10:00 07/06/16 10:09 Ecotrin - PO 81 mg DAILY JESÚS Administration Atorvastatin Calcium 20 mg 07/03/16 22:00 07/05/16 22:22 Lipitor - PO 20 mg HS JESÚS Administration Carvedilol 3.125 mg 07/03/16 22:00 07/06/16 10:08 Coreg - PO 3.125 mg BID JESÚS Administration Collagenase 1 applic 07/04/16 10:00 07/05/16 14:45 Santyl - TP Not Given DAILY JESÚS Cyanocobalamin 1,000 mcg 07/04/16 10:00 07/06/16 10:08 Vitamin B12 - PO 1,000 mcg DAILY JESÚS Administration Epoetin Dawood 10,000 unit 07/10/16 19:00 Procrit - SQ Q7D JESÚS Fentanyl 50 mcg 07/03/16 20:31 07/03/16 20:30 Sublimaze Injection - IVPUSH 07/06/16 15:36 50 mcg [id number] PRN Administration PAIN Heparin Sodium (Porcine) 5,000 unit 07/03/16 22:00 07/06/16 10:06 Heparin - SQ 5,000 unit BID JESÚS Administration Hydromorphone HCl 1 mg 07/03/16 19:01 07/06/16 10:12 Dilaudid Injection - IVPB 1 mg Q4H PRN Administration PAIN Amino Acids 1,000 mls @ 42 mls/hr 07/04/16 04:00 07/06/16 06:30 Clinimix - IV 42 mls/hr Q23H JESÚS Administration Lactated Ringer's 1,000 mls @ 125 mls/hr 07/03/16 20:31 07/04/16 21:41 Lactated Ringers Solution IV Not Given ASDIR JESÚS Piperacillin Sod/Tazobactam Sod 50 mls @ 100 mls/hr 07/04/16 18:00 07/06/16 10: 06 Zosyn 2.25gm Ivpb (Pre-Docked) IVPB 100 mls/hr Q8H-IV JESÚS Administration Protocol Insulin Aspart 1 vial 07/03/16 22:00 07/06/16 06:32 Novolog Vial Sliding Scale - SQ 2 units ACHS JESÚS Administration Protocol Insulin Detemir 10 units 07/04/16 07:00 07/06/16 06:33 Levemir Vial SQ Not Given DAILY@0700 JESÚS Isosorbide Mononitrate 30 mg 07/04/16 10:00 07/06/16 10:08 Imdur - PO 30 mg DAILY JESÚS Administration Levothyroxine Sodium 50 mcg 07/04/16 07:00 07/06/16 06:32 Synthroid - PO 50 mcg DAILY@0700 JESÚS Administration Lidocaine 1 patch 07/04/16 10:00 07/06/16 10:06 Lidoderm Patch - TP 1 patch DAILY JESÚS Administration Metoclopramide HCl 10 mg 07/04/16 01:45 07/06/16 08:05 Reglan Injection - IVPB 10 mg Q6H JESÚS Administration Morphine Sulfate 1 mg 07/03/16 20:31 Morphine Injection - IM Q6H PRN PAIN Nystatin 1 applic 07/03/16 22:00 07/06/16 10:09 Mycostatin Cream - TP 1 applic BID JESÚS Administration Ondansetron HCl 8 mg 07/03/16 20:31 Zofran Injection IVPB Q6H PRN NAUSEA AND/OR VOMITING Oxycodone HCl 5 mg 07/03/16 20:31 Roxicodone - PO Q4H PRN PAIN LEVEL 6-10 Pantoprazole Sodium 40 mg 07/03/16 22:00 07/06/16 10:06 Protonix 40mg Ivpb (Pre-Docked) IVPB 40 mg BID JESÚS Administration Polyethylene Glycol 17 gm 07/04/16 10:00 07/06/16 10:09 Miralax (For Daily Use) - PO 17 grams DAILY JESÚS Administration Senna/Docusate Sodium 2 tablet 07/03/16 22:00 07/05/16 22:34 Pericolace - PO 2 tablet HS JESÚS Administration Simethicone 80 mg 07/03/16 22:00 03/11/17 10:09 Mylicon - PO Not Given QID JESÚS Vital Signs Period Temp Pulse Resp BP Sys/Hagan Pulse Ox Last 24 Hr 97.2 F-98 F 71-77 20-20 126-151/56-92 96-96 Constitutional: Yes: No Distress, Calm, Obese Eyes: No: Sclera Icterus Cardiovascular: Yes: Regular Rate and Rhythm, S1, S2, Other (PMI displaced). No: JVD (tds habitus,) 2/6 sys murmur at apex Gallop Respiratory: Yes: diminished air movement, poor effort. No: Accessory Muscle Use Gastrointestinal: Yes: Normal Bowel Sounds (tds exam (++ obese)), Soft. No: Tenderness Extremities: No: Cold Edema: Yes indurated and 1+ dependent edema to pannus; left bka Integumentary: No: Jaundice diaphoresis Neurological: Yes: Alert, Oriented (x3) Psychiatric: No: Agitated Labs: CBC, BMP 07/06/16 05:35 07/06/16 05:35 tele: sr, occ pvcs Echo 07/01/2016: Mild decr EF. paradoxical septal motion with mild HK of anteroseptum. RV not seen. 1+ mr/tr. mild (although MG only 12 mmHg). Echo 06/2015: mild-mod decr EF--global; nl RV; mild LAE; mild-mod MR/TR; RVSP 30- 40; small peric effusion; + pleural eff echo 12/06/15: mild lvh. nl lv/rv, Septal motion c/w RV volume overload. Ab diastology. mild cheryl, mild-mod mr, mild as, mod-sev tr, rvsp 50, mod pericardial eff, no tamponade. pleural effusion. echo 12/11/15: focused, Nl lv. trivial pericardial eff. Pleural effusion. EKG 06/27/16: sr, nl intervals, nonspecific tw changes, no sig change prior a/p: 71 yo with h/o HFpEF, CAD s/p MO, HTN, HL, pHTN, MIRIAM, o2 dep't copd, CKD, IDDM, hypothyroid and chronic LLE cellulitis, here with non healing left foot wound/gangrene. chronic foot wound, gangrene, now s/p bka 07/03/16: -vascular, ID following chronic HFpEF/pulm HTN/venous ins'y/chronic resp failure/acute hypoxic resp failure here: - pt with volume overload during mult prior admits here--vol status is always [id number] to assess given morbidly obese neck hiding JVD, chronic venous ins'y/lymphedema of legs, and chronically very abnormal CXR markings due to overlying soft tissue - cr remains above baseline here, patient NPO with NGT in, suspected CRISTELA from anemia/infection - cont holding diuretics and cautious fluids as doing. - BIPAP prn per pulmonary. - Repeat echo --> unable to visualize RV. (NOTE: SHE HAS HAD SUSPECTED RV DILATION ALREADY ON SOME OF HER PRIOR ECHOES) - pt with mult RFs for PE but creat prohibitive for IV contrast, and she cannot currently cooperate with V/Q; d/w'd dr daily who feels cause of her current decompensation is more likely sec to exacerbation of her chronic lung disease PSVT: -likely brief run of ATach on tele 07/01. no recurrence. CAD, h/o NSTEMI: -has previously refused stress tests. h/o NSTEMI x 2 (2012, 2014) in setting of demand (sepsis/anemia) -MATEO deferred previously due to labile creat's--no change; -cath previously deferred due to: pt preference; hi risk of vascular complications (obese habitus), hi risk of BERNARDINO, and h/o recurrent anemia, possible occult GIB -currently without anginal sx's. EKG unchanged. Con't statin, coreg, asa, imdur CKD/cristela: - baseline creat 1.7-2.0 - renal fxn progressively worsening here--suspected hypoperfusion from cellulitis/anemia -- on IVF here - holding diuretic - cr improving, but still above baseline - renal following anemia: -chronic, baseline runs 8s-9s; -freq acute drops/PRBCs in past; currently near baseline HTN: -controlled -/-06/30 with persistent bradycardia--decreased carvedilol to 6.25 mg, then to to 3.125 mg bid. Now improved. gastroparesis: -s/p ngt -GI following
--- NOTE | 2016-07-06 11:28 | PN ---
Progress Note (short form) - Note Progress Note: POD#3 pt medicated for pain this am and again prior to dressing change. Vital Signs Period Temp Pulse Resp BP Sys/Hagan Pulse Ox Last 24 Hr 97.2 F-98 F 71-77 20-20 126-151/56-92 96-96 PE: Left leg: coaban/dressing removed. inc c/d/i with bennett. No wound edge ischemia/drainage/erythema. Over the tibia there is one small 1cm blister and several areas where the skin has sloughed off. reapplied a xeroform, telfa, kerlix and kasi wrap/knee immobilizer. CBC, BMP 03/11/17 05:35 03//17 05:35 A/P; POD#3 s/p L BKA doing well cont local wound care with dressing over BKA site/immobilizer pain managment as needed D/w Dr. Ohara (covering for Dr. Alonso)
--- NOTE | 2016-07-06 12:12 | PN ---
Progress Note, Physician Chief Complaint: axox3 NAD has occasional pain LLE but better than before, afebrile - Current Medication List Current Medications: Active Medications Al Hydroxide/Mg Hydroxide (Mylanta Oral Suspension -) 30 ml PO BID [facility] Last Admin: 07/06/16 10:09 Dose: 30 ml Albuterol Sulfate (Ventolin 0.083% Nebulizer Soln -) 1 amp NEB Q6H PRN PRN Reason: SHORT OF BREATH/WHEEZING Aspirin (Ecotrin -) 81 mg PO DAILY [facility] Last Admin: 07/06/16 10:09 Dose: 81 mg Atorvastatin Calcium (Lipitor -) 20 mg PO HS [facility] Last Admin: 07/05/16 22:22 Dose: 20 mg Carvedilol (Coreg -) 3.125 mg PO BID [facility] Last Admin: 07/06/16 10:08 Dose: 3.125 mg Collagenase (Santyl -) 1 applic TP DAILY [facility] Last Admin: 07/05/16 14:45 Dose: Not Given Cyanocobalamin (Vitamin B12 -) 1,000 mcg PO DAILY [facility] Last Admin: 07/06/16 10:08 Dose: 1,000 mcg Epoetin Dawood (Procrit -) 10,000 unit SQ Q7D [facility] Fentanyl (Sublimaze Injection -) 50 mcg IVPUSH [id number] PRN PRN Reason: PAIN Stop: 07/06/16 15:36 Last Admin: 07/03/16 20:30 Dose: 50 mcg Heparin Sodium (Porcine) (Heparin -) 5,000 unit SQ BID [facility] Last Admin: 07/06/16 10:06 Dose: 5,000 unit Hydromorphone HCl (Dilaudid Injection -) 1 mg IVPB Q4H PRN PRN Reason: PAIN Last Admin: 07/06/16 10:12 Dose: 1 mg Amino Acids (Clinimix -) 1,000 mls @ 42 mls/hr IV Q23H [facility] Last Admin: 07/06/16 06:30 Dose: 42 mls/hr Lactated Ringer's (Lactated Ringers Solution) 1,000 mls @ 125 mls/hr IV ASDIR [facility] Last Admin: 07/04/16 21:41 Dose: Not Given Piperacillin Sod/Tazobactam Sod (Zosyn 2.25gm Ivpb (Pre-Docked)) 50 mls @ 100 mls/hr IVPB Q8H-IV JESÚS PRN Reason: Protocol Last Admin: 07/06/16 10:06 Dose: 100 mls/hr Insulin Aspart (Novolog Vial Sliding Scale -) 1 vial SQ ACHS [facility] PRN Reason: Protocol Last Admin: 07/06/16 06:32 Dose: 2 units Insulin Detemir (Levemir Vial) 10 units SQ DAILY@0700 [facility] Last Admin: 07/06/16 06:33 Dose: Not Given Isosorbide Mononitrate (Imdur -) 30 mg PO DAILY [facility] Last Admin: 07/06/16 10:08 Dose: 30 mg Levothyroxine Sodium (Synthroid -) 50 mcg PO DAILY@0700 [facility] Last Admin: 07/06/16 06:32 Dose: 50 mcg Lidocaine (Lidoderm Patch -) 1 patch TP DAILY [facility] Last Admin: 07/06/16 10:06 Dose: 1 patch Metoclopramide HCl (Reglan Injection -) 10 mg IVPB Q6H [facility] Last Admin: 07/06/16 08:05 Dose: 10 mg Morphine Sulfate (Morphine Injection -) 1 mg IM Q6H PRN PRN Reason: PAIN Nystatin (Mycostatin Cream -) 1 applic TP BID [facility] Last Admin: 07/06/16 10:09 Dose: 1 applic Ondansetron HCl (Zofran Injection) 8 mg IVPB Q6H PRN PRN Reason: NAUSEA AND/OR VOMITING Oxycodone HCl (Roxicodone -) 5 mg PO Q4H PRN PRN Reason: PAIN LEVEL 6-10 Pantoprazole Sodium (Protonix 40mg Ivpb (Pre-Docked)) 40 mg IVPB BID [facility] Last Admin: 07/06/16 10:06 Dose: 40 mg Polyethylene Glycol (Miralax (For Daily Use) -) 17 gm PO DAILY [facility] Last Admin: 07/06/16 10:09 Dose: 17 grams Senna/Docusate Sodium (Pericolace -) 2 tablet PO HS [facility] Last Admin: 07/05/16 22:34 Dose: 2 tablet Simethicone (Mylicon -) 80 mg PO QID [facility] Last Admin: 07/06/16 10:09 Dose: Not Given - Objective Vital Signs: Vital Signs Temperature 98.2 F 07/06/16 10:00 Pulse Rate 58 L 07/06/16 10:00 Respiratory Rate 20 07/06/16 10:00 Blood Pressure 130/48 07/06/16 10:00 O2 Sat by Pulse Oximetry (%) 96 07/06/16 10:00 Constitutional: Yes: No Distress, Calm Eyes: Yes: Conjunctiva Clear HENT: Yes: Atraumatic Neck: Yes: Supple Cardiovascular: Yes: Regular Rate and Rhythm Respiratory: Yes: Diminished Gastrointestinal: Yes: Soft. No: Distention, Tenderness Genitourinary: No: CVA Tenderness - Left, CVA Tenderness - Right Extremities: No: Cold, Cool Edema: Yes (RLE lymphedema) Wound/Incision: Yes: Other (LLE BKA) Neurological: Yes: WNL, Alert, Oriented ...Motor Strength: WNL (functional quadriplegia bed bound) Psychiatric: Yes: WNL, Alert, Oriented. No: Agitated, Suicidal Ideation Labs: CBC, BMP 07/06/16 05:35 07/06/16 05:35 INR, PTT INR 1.28 (0.82-1.09) H 07/03/16 05:45 - ....Imaging Other: Report Reviewed Assessment/Plan The patient is a 71 year old female with significant past medical history of hypertension, hyperlipidemia, diabetes, CAD, CHF, MIx2, COPD (O2 dependent 2L), and renal insufficiency who presents to the emergency department sent from wound care by Dr. Alonso for further evaluation of a left lower extremity wound. Nonhealing after ATB and HBO tx. 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
--- NOTE | 2016-07-06 12:59 | PN ---
Progress Note, Physician Chief Complaint: Patient seen in the bed. S/p amputation. Has phantom pains No chest pain, or SOB. - Current Medication List Current Medications: Active Medications Al Hydroxide/Mg Hydroxide (Mylanta Oral Suspension -) 30 ml PO BID [facility] Last Admin: 07/06/16 10:09 Dose: 30 ml Albuterol Sulfate (Ventolin 0.083% Nebulizer Soln -) 1 amp NEB Q6H PRN PRN Reason: SHORT OF BREATH/WHEEZING Aspirin (Ecotrin -) 81 mg PO DAILY [facility] Last Admin: 07/06/16 10:09 Dose: 81 mg Atorvastatin Calcium (Lipitor -) 20 mg PO HS [facility] Last Admin: 07/05/16 22:22 Dose: 20 mg Carvedilol (Coreg -) 3.125 mg PO BID [facility] Last Admin: 07/06/16 10:08 Dose: 3.125 mg Collagenase (Santyl -) 1 applic TP DAILY [facility] Last Admin: 07/05/16 14:45 Dose: Not Given Cyanocobalamin (Vitamin B12 -) 1,000 mcg PO DAILY [facility] Last Admin: 07/06/16 10:08 Dose: 1,000 mcg Epoetin Dawood (Procrit -) 10,000 unit SQ Q7D [facility] Fentanyl (Sublimaze Injection -) 50 mcg IVPUSH [id number] PRN PRN Reason: PAIN Stop: 07/06/16 15:36 Last Admin: 07/03/16 20:30 Dose: 50 mcg Heparin Sodium (Porcine) (Heparin -) 5,000 unit SQ BID [facility] Last Admin: 07/06/16 10:06 Dose: 5,000 unit Hydromorphone HCl (Dilaudid Injection -) 1 mg IVPB Q4H PRN PRN Reason: PAIN Last Admin: 07/06/16 10:12 Dose: 1 mg Amino Acids (Clinimix -) 1,000 mls @ 42 mls/hr IV Q23H [facility] Last Admin: 07/06/16 06:30 Dose: 42 mls/hr Lactated Ringer's (Lactated Ringers Solution) 1,000 mls @ 125 mls/hr IV ASDIR [facility] Last Admin: 07/04/16 21:41 Dose: Not Given Piperacillin Sod/Tazobactam Sod (Zosyn 2.25gm Ivpb (Pre-Docked)) 50 mls @ 100 mls/hr IVPB Q8H-IV JESÚS PRN Reason: Protocol Last Admin: 07/06/16 10:06 Dose: 100 mls/hr Insulin Aspart (Novolog Vial Sliding Scale -) 1 vial SQ ACHS [facility] PRN Reason: Protocol Last Admin: 07/06/16 06:32 Dose: 2 units Insulin Detemir (Levemir Vial) 10 units SQ DAILY@0700 [facility] Last Admin: 07/06/16 06:33 Dose: Not Given Isosorbide Mononitrate (Imdur -) 30 mg PO DAILY [facility] Last Admin: 07/06/16 10:08 Dose: 30 mg Levothyroxine Sodium (Synthroid -) 50 mcg PO DAILY@0700 [facility] Last Admin: 07/06/16 06:32 Dose: 50 mcg Lidocaine (Lidoderm Patch -) 1 patch TP DAILY [facility] Last Admin: 07/06/16 10:06 Dose: 1 patch Metoclopramide HCl (Reglan Injection -) 10 mg IVPB Q6H [facility] Last Admin: 07/06/16 08:05 Dose: 10 mg Morphine Sulfate (Morphine Injection -) 1 mg IM Q6H PRN PRN Reason: PAIN Nystatin (Mycostatin Cream -) 1 applic TP BID [facility] Last Admin: 07/06/16 10:09 Dose: 1 applic Ondansetron HCl (Zofran Injection) 8 mg IVPB Q6H PRN PRN Reason: NAUSEA AND/OR VOMITING Oxycodone HCl (Roxicodone -) 5 mg PO Q4H PRN PRN Reason: PAIN LEVEL 6-10 Pantoprazole Sodium (Protonix 40mg Ivpb (Pre-Docked)) 40 mg IVPB BID [facility] Last Admin: 07/06/16 10:06 Dose: 40 mg Polyethylene Glycol (Miralax (For Daily Use) -) 17 gm PO DAILY [facility] Last Admin: 07/06/16 10:09 Dose: 17 grams Senna/Docusate Sodium (Pericolace -) 2 tablet PO HS [facility] Last Admin: 07/05/16 22:34 Dose: 2 tablet Simethicone (Mylicon -) 80 mg PO QID [facility] Last Admin: 07/06/16 10:09 Dose: Not Given - Objective Vital Signs: Vital Signs Temperature 98.2 F 07/06/16 10:00 Pulse Rate 58 L 07/06/16 10:00 Respiratory Rate 20 07/06/16 10:00 Blood Pressure 130/48 07/06/16 10:00 O2 Sat by Pulse Oximetry (%) 96 07/06/16 10:00 Constitutional: Yes: Calm, Mild Distress HENT: Yes: WNL Neck: Yes: Supple Cardiovascular: Yes: S1, S2 Respiratory: Yes: CTA Bilaterally Gastrointestinal: Yes: Normal Bowel Sounds, Soft, Abdomen, Obese Neurological: Yes: Alert, Oriented Labs: CBC, BMP 07/06/16 05:35 07/06/16 05:35 INR, PTT INR 1.28 (0.82-1.09) H 07/03/16 05:45 Problem List - Problems (1) Acute on chronic renal failure Code(s): N17.9 - ACUTE KIDNEY FAILURE, UNSPECIFIED N18.9 - CHRONIC KIDNEY DISEASE, UNSPECIFIED (2) CO2 retention Code(s): E87.2 - ACIDOSIS (3) Diabetes Code(s): E11.9 - TYPE 2 DIABETES MELLITUS WITHOUT COMPLICATIONS (4) Fluid overload Code(s): E87.70 - FLUID OVERLOAD, UNSPECIFIED (5) Gangrene Code(s): I96 - GANGRENE, NOT ELSEWHERE CLASSIFIED (6) Renal insufficiency Code(s): N28.9 - DISORDER OF KIDNEY AND URETER, UNSPECIFIED (7) Ulcer of foot Code(s): L97.509 - NON-PRESSURE CHRONIC ULCER OTH PRT UNSP FOOT W UNSP SEVERITY Qualifiers: Laterality: left Non-pressure ulcer stage: with fat layer exposed Qualified Code(s): L97.522 - Non-pressure chronic ulcer of other part of left foot with fat layer exposed (8) (HFpEF) heart failure with preserved ejection fraction Code(s): I50.9 - HEART FAILURE, UNSPECIFIED (9) CRISTELA (acute kidney injury) Code(s): N17.9 - ACUTE KIDNEY FAILURE, UNSPECIFIED (10) Acute hyperkalemia Code(s): E87.5 - HYPERKALEMIA (11) Acute renal failure Code(s): N17.9 - ACUTE KIDNEY FAILURE, UNSPECIFIED (12) Anemia Code(s): D64.9 - ANEMIA, UNSPECIFIED Qualifiers: Anemia type: unspecified type Qualified Code(s): D64.9 - Anemia, unspecified (13) CAD (coronary artery disease) Code(s): I25.10 - ATHSCL HEART DISEASE OF [place] CORONARY ARTERY W/O ANG PCTRS Qualifiers: Coronary Disease-Associated Artery/Lesion type: unspecified vessel or lesion type [place] vs. transplanted heart: [place] heart Associated angina: without angina Qualified Code(s): I25.10 - Atherosclerotic heart disease of [place] coronary artery without angina pectoris (14) COPD (chronic obstructive pulmonary disease) Code(s): J44.9 - CHRONIC OBSTRUCTIVE PULMONARY DISEASE, UNSPECIFIED Qualifiers : COPD type: unspecified COPD Qualified Code(s): J44.9 - Chronic obstructive pulmonary disease, unspecified (15) Cellulitis Code(s): L03.90 - CELLULITIS, UNSPECIFIED (16) Cellulitis of leg Code(s): L03.119 - CELLULITIS OF UNSPECIFIED PART OF LIMB (17) HTN (hypertension) Code(s): I10 - ESSENTIAL (PRIMARY) HYPERTENSION Qualifiers: Hypertension type: essential hypertension Qualified Code(s): I10 - Essential (primary) hypertension (18) Hyperkalemia, diminished renal excretion Code(s): E87.5 - HYPERKALEMIA (19) Leg edema Code(s): R60.0 - LOCALIZED EDEMA Qualifiers: Laterality: left Qualified Code(s): R60.0 - Localized edema (20) Morbid obesity Code(s): E66.01 - MORBID (SEVERE) OBESITY DUE TO EXCESS CALORIES Qualifiers: Obesity type: due to excess calories Qualified Code(s): E66.01 - Morbid (severe) obesity due to excess calories (21) SOB (shortness of breath) Code(s): R06.02 - SHORTNESS OF BREATH Assessment/Plan 71 y/o female admitted with foot ulcer, infection and pain. S/p foot amputation Was transfused for severe anemia. Hgb stable. Renal functions stable. Has CKD, with acute hemodynamic renal functions. Agree with the current management. Will monitor the renal functions with you. Apple Kang MD
[2016-07-06 13:57] LABS: BASOPHIL 0.6 % (0-2.0); EOSINOPHIL 2.7 % (0-4.5); MCHC 31.9 g/dl (32.0-36.0); MEAN CELL VOLUME 90.8 fl (80-96); MEAN PLT VOLUME 8.7 fl (7.5-11.1); NEUTROPHILS 73.5 % (42.8-82.8); PLATELET COUNT 161 K/MM3 (134-434); RDW 16.5 % (11.6-15.6); WHITE BLOOD COUNT 9.3 K/mm3 (4.0-10.0)
[2016-07-06] MEDS: COLLAGENASE CLOSTRIDIUM HIST. 30 GRAMS TUBE TP SCH (16:45)
[2016-07-06] MEDS: SENNOSIDES/DOCUSATE COMBO (SENNA PLUS) TABLET (UD) PO SCH (22:35)
[2016-07-06] MEDS: ATORVASTATIN CA 20 MG TABLET (FP) PO SCH (22:36)
[2016-07-07] MEDS: PIPERACILLIN/TAZOB 2.25 GM 50 ML IVPB SCH ×2 (04:40→09:50)
[2016-07-07] MEDS: METOCLOPRAMIDE HCL INJECTION 10 MG/2 ML VIAL IVPB SCH ×4 (04:40→19:29)
[2016-07-07] MEDS: LEVOTHYROXINE NA 50 MCG TABLET (FP) PO SCH (06:29)
[2016-07-07] MEDS: INSULIN SLIDING SCALE (NOVOLOG) 1 VIAL SQ SCH ×4 (06:30→22:13)
[2016-07-07] MEDS: INSULIN DETEMIR 100 UNITS/ML MDV SQ SCH (06:31)
[2016-07-07] MEDS: oxyCODONE HCL 5 MG TABLET PO PRN (08:03)
[2016-07-07 08:52] LABS: ALBUMIN 1.9 g/dl (3.4-5.0); ALK PHOS 64 U/L (45-117); ANION GAP 13 (8-16); BILIRUBIN,TOTAL 0.5 mg/dL (0.2-1.0); CALCIUM 7.9 mg/dL (8.5-10.1); CO2 27 mmol/L (21-32); CREATININE 2.3 mg/dL (0.55-1.02); GLUCOSE,RANDOM 161 mg/dL (74-106); MAGNESIUM 2.3 mg/dL (1.8-2.4); PHOSPHOROUS 3.6 mg/dL (2.5-4.9); SGOT/AST 6 U/L (15-37); SGPT/ALT < 6 U/L (12-78); TOT PROT 6.1 g/dl (6.4-8.2)
[2016-07-07] MEDS: PANTOPRAZOLE SODIUM 40 MG/100 ML PRE-DOCKED IVPB SCH ×2 (09:49→22:12)
[2016-07-07] MEDS: CARVEDILOL 3.125 MG TABLET (FP) PO SCH ×2 (09:51→22:12)
[2016-07-07] MEDS: ASPIRIN COATED 81 MG TABLET.EC PO SCH (09:51)
[2016-07-07] MEDS: SIMETHICONE 80 MG TAB.CHEW (FP) PO SCH ×4 (09:51→22:12)
[2016-07-07] MEDS: ISOSORBIDE MONONITRATE 30 MG TAB.SR.24H (FP) PO SCH (09:52)
[2016-07-07] MEDS: CYANOCOBALAMIN 1,000 MCG TABLET (FP) PO SCH (09:52)
[2016-07-07] MEDS: MAG HYDROX/AL HYDROX/SIMETH 30 ML UNIT-DOSE CUP PO SCH ×2 (09:52→22:13)
[2016-07-07] MEDS: NYSTATIN 100,000 UNIT/GM TOPICAL CREAM 15 GM TUBE TP SCH ×2 (09:52→22:13)
[2016-07-07] MEDS: POLYETHYLENE GLYCOL 3350 119 GM BTL PO SCH (09:53)
[2016-07-07] MEDS: HEPARIN NA (PORCINE) 5,000 UNITS/ML 1ML VIAL SQ SCH ×2 (09:53→22:12)
[2016-07-07] MEDS: COLLAGENASE CLOSTRIDIUM HIST. 30 GRAMS TUBE TP SCH (10:00)
[2016-07-07] MEDS: LIDOCAINE 5% TOPICAL PATCH TP SCH (10:08)
--- NOTE | 2016-07-07 10:09 | PN ---
Progress Note (short form) - Note Progress Note: s: no cp sob palps dizzy. s/p bka 3/8 Current Medications Generic Name Dose Route Start Last Admin Trade Name Freq PRN Reason Stop Dose Admin Al Hydroxide/Mg Hydroxide 30 ml 07/03/16 22:00 07/06/16 22:35 Mylanta Oral Suspension - PO 30 ml BID JESÚS Administration Albuterol Sulfate 1 amp 07/03/16 20:31 Ventolin 0.083% Nebulizer Soln - NEB Q6H PRN SHORT OF BREATH/WHEEZING Aspirin 81 mg 07/04/16 10:00 07/06/16 10:09 Ecotrin - PO 81 mg DAILY JESÚS Administration Atorvastatin Calcium 20 mg 07/03/16 22:00 07/06/16 22:36 Lipitor - PO 20 mg HS JESÚS Administration Carvedilol 3.125 mg 07/03/16 22:00 07/06/16 22:35 Coreg - PO 3.125 mg BID JESÚS Administration Collagenase 1 applic 07/04/16 10:00 07/06/16 16:45 Santyl - TP Not Given DAILY [facility] Cyanocobalamin 1,000 mcg 07/04/16 10:00 07/06/16 10:08 Vitamin B12 - PO 1,000 mcg DAILY JESÚS Administration Epoetin Dawood 10,000 unit 07/10/16 19:00 Procrit - SQ Q7D [facility] Heparin Sodium (Porcine) 5,000 unit 07/03/16 22:00 07/06/16 22:36 Heparin - SQ 5,000 unit BID JESÚS Administration Hydromorphone HCl 1 mg 07/03/16 19:01 07/06/16 22:37 Dilaudid Injection - IVPB 1 mg Q4H PRN Administration PAIN Amino Acids 1,000 mls @ 42 mls/hr 07/04/16 04:00 07/06/16 06:30 Clinimix - IV 42 mls/hr Q23H JESÚS Administration Lactated Ringer's 1,000 mls @ 125 mls/hr 07/03/16 20:31 07/04/16 21:41 Lactated Ringers Solution IV Not Given ASDIR JESÚS Piperacillin Sod/Tazobactam Sod 50 mls @ 100 mls/hr 07/04/16 18:00 07/07/16 04: 40 Zosyn 2.25gm Ivpb (Pre-Docked) IVPB 100 mls/hr Q8H-IV JESÚS Administration Protocol Insulin Aspart 1 vial 07/03/16 22:00 07/07/16 06:30 Novolog Vial Sliding Scale - SQ 2 units ACHS JESÚS Administration Protocol Insulin Detemir 10 units 07/04/16 07:00 07/07/16 06:31 Levemir Vial SQ 10 units DAILY@0700 JESÚS Administration Isosorbide Mononitrate 30 mg 07/04/16 10:00 07/06/16 10:08 Imdur - PO 30 mg DAILY JESÚS Administration Levothyroxine Sodium 50 mcg 07/04/16 07:00 07/07/16 06:29 Synthroid - PO 50 mcg DAILY@0700 JESSÚ Administration Lidocaine 1 patch 07/04/16 10:00 07/06/16 10:06 Lidoderm Patch - TP 1 patch DAILY JESÚS Administration Metoclopramide HCl 10 mg 07/04/16 01:45 07/07/16 04:40 Reglan Injection - IVPB 10 mg Q6H JESÚS Administration Nystatin 1 applic 07/03/16 22:00 07/06/16 22:36 Mycostatin Cream - TP 1 applic BID JESÚS Administration Ondansetron HCl 8 mg 07/03/16 20:31 Zofran Injection IVPB Q6H PRN NAUSEA AND/OR VOMITING Oxycodone HCl 5 mg 07/03/16 20:31 07/07/16 08:03 Roxicodone - PO 5 mg Q4H PRN Administration PAIN LEVEL 6-10 Pantoprazole Sodium 40 mg 07/03/16 22:00 07/06/16 22:36 Protonix 40mg Ivpb (Pre-Docked) IVPB 40 mg BID JESÚS Administration Polyethylene Glycol 17 gm 07/04/16 10:00 07/06/16 10:09 Miralax (For Daily Use) - PO 17 grams DAILY JESÚS Administration Senna/Docusate Sodium 2 tablet 07/03/16 22:00 07/06/16 22:35 Pericolace - PO 2 tablet HS JESÚS Administration Simethicone 80 mg 07/03/16 22:00 07/06/16 22:34 Mylicon - PO 80 mg QID JESÚS Administration Vital Signs Period Temp Pulse Resp BP Sys/Hagan Pulse Ox Last 24 Hr 97 F-98.2 F 57-77 20-20 123-180/48-67 96-96 Constitutional: Yes: No Distress, Calm, Obese Eyes: No: Sclera Icterus Cardiovascular: Yes: Regular Rate and Rhythm, S1, S2, Other (PMI displaced). No: JVD (tds habitus,) 2/6 sys murmur at apex Gallop Respiratory: Yes: diminished air movement, poor effort. No: Accessory Muscle Use Gastrointestinal: Yes: Normal Bowel Sounds (tds exam (++ obese)), Soft. No: Tenderness Extremities: No: Cold Edema: Yes indurated and 1+ dependent edema to pannus; left bka Integumentary: No: Jaundice diaphoresis Neurological: Yes: Alert, Oriented (x3) Psychiatric: No: Agitated Labs: CBC, BMP 07/06/16 13:30 07/07/16 05:35 tele: sr, occ pvcs Echo 07/01/2016: Mild decr EF. paradoxical septal motion with mild HK of anteroseptum. RV not seen. 1+ mr/tr. mild (although MG only 12 mmHg). Echo 06/2015: mild-mod decr EF--global; nl RV; mild LAE; mild-mod MR/TR; RVSP 30- 40; small peric effusion; + pleural eff echo 12/06/15: mild lvh. nl lv/rv, Septal motion c/w RV volume overload. Ab diastology. mild cheryl, mild-mod mr, mild as, mod-sev tr, rvsp 50, mod pericardial eff, no tamponade. pleural effusion. echo 12/11/15: focused, Nl lv. trivial pericardial eff. Pleural effusion. EKG 06/27/16: sr, nl intervals, nonspecific tw changes, no sig change prior a/p: 71 yo with h/o HFpEF, CAD s/p [place], HTN, HL, pHTN, MIRIAM, o2 dep't copd, CKD, IDDM, hypothyroid and chronic LLE cellulitis, here with non healing left foot wound/gangrene. chronic foot wound, gangrene, now s/p bka 07/03/16: -vascular, ID following chronic HFpEF/pulm HTN/venous ins'y/chronic resp failure/acute hypoxic resp failure here: - pt with volume overload during mult prior admits here--vol status is always [id number] to assess given morbidly obese neck hiding JVD, chronic venous ins'y/lymphedema of legs, and chronically very abnormal CXR markings due to overlying soft tissue - cr remains above baseline here, has been npo with NGT in, suspected CRISTELA from anemia/infection as well - cont holding diuretics and cautious fluids as doing, cr slowly improving - BIPAP prn per pulmonary. - Repeat echo --> unable to visualize RV. (NOTE: SHE HAS HAD SUSPECTED RV DILATION ALREADY ON SOME OF HER PRIOR ECHOES) - pt with mult RFs for PE but creat prohibitive for IV contrast, and she cannot currently cooperate with V/Q; d/w'd dr daily who feels cause of her current decompensation is more likely sec to exacerbation of her chronic lung disease PSVT: -likely brief run of ATach on tele 07/01. no recurrence. CAD, h/o NSTEMI: -has previously refused stress tests. h/o NSTEMI x 2 (2012, 2014) in setting of demand (sepsis/anemia) -MATEO deferred previously due to labile creat's--no change; -cath previously deferred due to: pt preference; hi risk of vascular complications (obese habitus), hi risk of BERNARDINO, and h/o recurrent anemia, possible occult GIB -currently without anginal sx's. EKG unchanged. Con't statin, coreg, asa, imdur CKD/cristela: - baseline creat 1.7-2.0 - cristela suspected hypoperfusion from cellulitis/anemia -- on IVF here - holding diuretic - cr improving, but still above baseline - renal following anemia: -chronic, baseline runs 8s-9s; -freq acute drops/PRBCs in past; currently near baseline HTN: -controlled -3/-3/ with persistent bradycardia--decreased carvedilol to 6.25 mg, then to to 3.125 mg bid. Now improved. gastroparesis: -s/p ngt, now on liquids -GI following
--- NOTE | 2016-07-07 10:21 | PN ---
Progress Note (short form) - Note Progress Note: PULMONARY PATIENT SEEN AND EXAMINED ON [facility] NO OVERALL CHANGE IN CHRONIC CONDITION LABS/MEDS/NOTES/IMAGING/MICRO REVIEWED Left Foot Gangrene s/p L BKA Chronic Hypoxic and Hypercapneic Respiratory Failure Acute on Chronic Renal Failure Morbid Obesity MIRIAM/OHS Volume Overload - monitor urine output, creatinine - O2 to keep SpO2 >88% - pain control - incentive spirometry - BiPAP at night and PRN during day - DVT prophylaxis Jarad BURTON MD Problem List - Problems (1) Acute on chronic renal failure Code(s): N17.9 - ACUTE KIDNEY FAILURE, UNSPECIFIED N18.9 - CHRONIC KIDNEY DISEASE, UNSPECIFIED (2) CO2 retention Code(s): E87.2 - ACIDOSIS (3) Diabetes Code(s): E11.9 - TYPE 2 DIABETES MELLITUS WITHOUT COMPLICATIONS (4) Fluid overload Code(s): E87.70 - FLUID OVERLOAD, UNSPECIFIED (5) Gangrene Code(s): I96 - GANGRENE, NOT ELSEWHERE CLASSIFIED
--- NOTE | 2016-07-07 11:46 | PN ---
Progress Note (short form) - Note Progress Note: no complaints ngt out, no vomiting eating small amounts Vital Signs Period Temp Pulse Resp BP Sys/Hagan Pulse Ox Last 24 Hr 97 F-97.7 F 57-77 20-20 123-180/54-67 96-96 +anasarca cor-rrr lungs decreased bs at bases abd soft,nt s/p left BKA- CBC, BMP 07/06/16 13:30 07/07/16 05:35 a/p s/p BKA for gangrene-pod#4 wbc normal surgery doing dressing changes local wound care per surgery will d/c antibiotics anasarca diabetes CKD
--- NOTE | 2016-07-07 12:10 | PN ---
Progress Note, Physician Chief Complaint: Patient seen in the bed. S/p amputation. Generalized edema persists Has phantom pains Lethargic. - Current Medication List Current Medications: Active Medications Al Hydroxide/Mg Hydroxide (Mylanta Oral Suspension -) 30 ml PO BID [facility] Last Admin: 07/07/16 09:52 Dose: 30 ml Albuterol Sulfate (Ventolin 0.083% Nebulizer Soln -) 1 amp NEB Q6H PRN PRN Reason: SHORT OF BREATH/WHEEZING Aspirin (Ecotrin -) 81 mg PO DAILY [facility] Last Admin: 07/07/16 09:51 Dose: 81 mg Atorvastatin Calcium (Lipitor -) 20 mg PO HS [facility] Last Admin: 07/06/16 22:36 Dose: 20 mg Carvedilol (Coreg -) 3.125 mg PO BID [facility] Last Admin: 07/07/16 09:51 Dose: 3.125 mg Collagenase (Santyl -) 1 applic TP DAILY [facility] Last Admin: 07/06/16 16:45 Dose: Not Given Cyanocobalamin (Vitamin B12 -) 1,000 mcg PO DAILY [facility] Last Admin: 07/07/16 09:52 Dose: 1,000 mcg Epoetin Dawood (Procrit -) 10,000 unit SQ Q7D [facility] Heparin Sodium (Porcine) (Heparin -) 5,000 unit SQ BID [facility] Last Admin: 07/07/16 09:53 Dose: 5,000 unit Hydromorphone HCl (Dilaudid Injection -) 1 mg IVPB Q4H PRN PRN Reason: PAIN Last Admin: 07/06/16 22:37 Dose: 1 mg Amino Acids (Clinimix -) 1,000 mls @ 42 mls/hr IV Q23H [facility] Last Admin: 07/06/16 06:30 Dose: 42 mls/hr Lactated Ringer's (Lactated Ringers Solution) 1,000 mls @ 125 mls/hr IV ASDIR [facility] Last Admin: 07/04/16 21:41 Dose: Not Given Insulin Aspart (Novolog Vial Sliding Scale -) 1 vial SQ ACHS [facility] PRN Reason: Protocol Last Admin: 07/07/16 06:30 Dose: 2 units Insulin Detemir (Levemir Vial) 10 units SQ DAILY@0700 [facility] Last Admin: 07/07/16 06:31 Dose: 10 units Isosorbide Mononitrate (Imdur -) 30 mg PO DAILY [facility] Last Admin: 07/07/16 09:52 Dose: 30 mg Levothyroxine Sodium (Synthroid -) 50 mcg PO DAILY@0700 [facility] Last Admin: 07/07/16 06:29 Dose: 50 mcg Lidocaine (Lidoderm Patch -) 1 patch TP DAILY [facility] Last Admin: 07/07/16 10:08 Dose: 1 patch Metoclopramide HCl (Reglan Injection -) 10 mg IVPB Q6H [facility] Last Admin: 07/07/16 09:50 Dose: 10 mg Nystatin (Mycostatin Cream -) 1 applic TP BID [facility] Last Admin: 07/07/16 09:52 Dose: 1 applic Ondansetron HCl (Zofran Injection) 8 mg IVPB Q6H PRN PRN Reason: NAUSEA AND/OR VOMITING Oxycodone HCl (Roxicodone -) 5 mg PO Q4H PRN PRN Reason: PAIN LEVEL 6-10 Last Admin: 07/07/16 08:03 Dose: 5 mg Pantoprazole Sodium (Protonix 40mg Ivpb (Pre-Docked)) 40 mg IVPB BID [facility] Last Admin: 07/07/16 09:49 Dose: 40 mg Polyethylene Glycol (Miralax (For Daily Use) -) 17 gm PO DAILY [facility] Last Admin: 07/07/16 09:53 Dose: 17 grams Senna/Docusate Sodium (Pericolace -) 2 tablet PO HS [facility] Last Admin: 07/06/16 22:35 Dose: 2 tablet Simethicone (Mylicon -) 80 mg PO QID [facility] Last Admin: 07/07/16 09:51 Dose: 80 mg - Objective Vital Signs: Vital Signs Temperature 98.7 F 07/07/16 10:00 Pulse Rate 58 L 07/07/16 10:00 Respiratory Rate 18 07/07/16 10:00 Blood Pressure 130/47 07/07/16 10:00 O2 Sat by Pulse Oximetry (%) 96 07/07/16 01:56 Constitutional: Yes: Calm, Mild Distress Eyes: Yes: WNL HENT: Yes: Atraumatic Neck: Yes: Supple Cardiovascular: Yes: Regular Rate and Rhythm, S1, S2 Respiratory: Yes: CTA Bilaterally, Diminished, Dullness Gastrointestinal: Yes: Normal Bowel Sounds, Abdomen, Obese Edema: Yes Edema: LLE: 3+, RLE: 3+ Neurological: Yes: Lethargy Labs: CBC, BMP 07/06/16 13:30 07/07/16 05:35 INR, PTT INR 1.28 (0.82-1.09) H 07/03/16 05:45 Problem List - Problems (1) Acute on chronic renal failure Code(s): N17.9 - ACUTE KIDNEY FAILURE, UNSPECIFIED N18.9 - CHRONIC KIDNEY DISEASE, UNSPECIFIED (2) CO2 retention Code(s): E87.2 - ACIDOSIS (3) Diabetes Code(s): E11.9 - TYPE 2 DIABETES MELLITUS WITHOUT COMPLICATIONS (4) Fluid overload Code(s): E87.70 - FLUID OVERLOAD, UNSPECIFIED (5) Gangrene Code(s): I96 - GANGRENE, NOT ELSEWHERE CLASSIFIED (6) Renal insufficiency Code(s): N28.9 - DISORDER OF KIDNEY AND URETER, UNSPECIFIED (7) Ulcer of foot Code(s): L97.509 - NON-PRESSURE CHRONIC ULCER OTH PRT UNSP FOOT W UNSP SEVERITY Qualifiers: Laterality: left Non-pressure ulcer stage: with fat layer exposed Qualified Code(s): L97.522 - Non-pressure chronic ulcer of other part of left foot with fat layer exposed (8) (HFpEF) heart failure with preserved ejection fraction Code(s): I50.9 - HEART FAILURE, UNSPECIFIED (9) CRISTELA (acute kidney injury) Code(s): N17.9 - ACUTE KIDNEY FAILURE, UNSPECIFIED (10) Acute hyperkalemia Code(s): E87.5 - HYPERKALEMIA (11) Acute renal failure Code(s): N17.9 - ACUTE KIDNEY FAILURE, UNSPECIFIED (12) Anemia Code(s): D64.9 - ANEMIA, UNSPECIFIED Qualifiers: Anemia type: unspecified type Qualified Code(s): D64.9 - Anemia, unspecified (13) CAD (coronary artery disease) Code(s): I25.10 - ATHSCL HEART DISEASE OF [place] CORONARY ARTERY W/O ANG PCTRS Qualifiers: Coronary Disease-Associated Artery/Lesion type: unspecified vessel or lesion type [place] vs. transplanted heart: [place] heart Associated angina: without angina Qualified Code(s): I25.10 - Atherosclerotic heart disease of [place] coronary artery without angina pectoris (14) COPD (chronic obstructive pulmonary disease) Code(s): J44.9 - CHRONIC OBSTRUCTIVE PULMONARY DISEASE, UNSPECIFIED Qualifiers : COPD type: unspecified COPD Qualified Code(s): J44.9 - Chronic obstructive pulmonary disease, unspecified (15) Cellulitis Code(s): L03.90 - CELLULITIS, UNSPECIFIED (16) Cellulitis of leg Code(s): L03.119 - CELLULITIS OF UNSPECIFIED PART OF LIMB (17) HTN (hypertension) Code(s): I10 - ESSENTIAL (PRIMARY) HYPERTENSION Qualifiers: Hypertension type: essential hypertension Qualified Code(s): I10 - Essential (primary) hypertension (18) Hyperkalemia, diminished renal excretion Code(s): E87.5 - HYPERKALEMIA (19) Leg edema Code(s): R60.0 - LOCALIZED EDEMA Qualifiers: Laterality: left Qualified Code(s): R60.0 - Localized edema (20) Morbid obesity Code(s): E66.01 - MORBID (SEVERE) OBESITY DUE TO EXCESS CALORIES Qualifiers: Obesity type: due to excess calories Qualified Code(s): E66.01 - Morbid (severe) obesity due to excess calories (21) SOB (shortness of breath) Code(s): R06.02 - SHORTNESS OF BREATH Assessment/Plan 71 y/o female admitted with foot ulcer, infection and pain. S/p foot amputation Was transfused for severe anemia. Hgb stable. Renal functions stable. Has CKD, with acute hemodynamic renal functions. Agree with the current management. Massive edema. Will try a course of Lasix Will monitor the renal functions with you. Apple Kang MD
[2016-07-07] MEDS ORDERED: FUROSEMIDE INJECTION 100 MG in SODIUM CHLORIDE 90 ML IVPB SCH (12:15)
--- NOTE | 2016-07-07 12:15 | PN ---
Progress Note, Physician Chief Complaint: no new c/o, NGT out, on full liquids diet, tolerated well; afebrile; labs better - Current Medication List Current Medications: Active Medications Al Hydroxide/Mg Hydroxide (Mylanta Oral Suspension -) 30 ml PO BID [facility]CLUD[facility] Last Admin: 07/07/16 09:52 Dose: 30 ml Albuterol Sulfate (Ventolin 0.083% Nebulizer Soln -) 1 amp NEB Q6H PRN PRN Reason: SHORT OF BREATH/WHEEZING Aspirin (Ecotrin -) 81 mg PO DAILY [facility]CLUD[facility] Last Admin: 07/07/16 09:51 Dose: 81 mg Atorvastatin Calcium (Lipitor -) 20 mg PO HS COUNT [facility]CLUDES [facility] Last Admin: 07/06/16 22:36 Dose: 20 mg Carvedilol (Coreg -) 3.125 mg PO BID [facility] Last Admin: 07/07/16 09:51 Dose: 3.125 mg Collagenase (Santyl -) 1 applic TP DAILY [facility] Last Admin: 07/06/16 16:45 Dose: Not Given Cyanocobalamin (Vitamin B12 -) 1,000 mcg PO DAILY [facility] Last Admin: 07/07/16 09:52 Dose: 1,000 mcg Epoetin Dawood (Procrit -) 10,000 unit SQ Q7D COUNT [facility]CLUD[facility] Heparin Sodium (Porcine) (Heparin -) 5,000 unit SQ BID [facility] Last Admin: 07/07/16 09:53 Dose: 5,000 unit Hydromorphone HCl (Dilaudid Injection -) 1 mg IVPB Q4H PRN PRN Reason: PAIN Last Admin: 07/06/16 22:37 Dose: 1 mg Amino Acids (Clinimix -) 1,000 mls @ 42 mls/hr IV Q23H COUNT [facility]CLUD[facility] Last Admin: 07/06/16 06:30 Dose: 42 mls/hr Lactated Ringer's (Lactated Ringers Solution) 1,000 mls @ 125 mls/hr IV ASDIR COUNT INCLUDES THE [facility] Last Admin: 07/04/16 21:41 Dose: Not Given Furosemide 100 mg/ Sodium (Chloride) 100 mls @ 100 mls/hr IVPB ASDIR COUNT INCLUDES THE [facility] Stop: 07/07/16 13:14 Insulin Aspart (Novolog Vial Sliding Scale -) 1 vial SQ ACHS JESÚS PRN Reason: Protocol Last Admin: 07/07/16 06:30 Dose: 2 units Insulin Detemir (Levemir Vial) 10 units SQ DAILY@0700 [facility] Last Admin: 07/07/16 06:31 Dose: 10 units Isosorbide Mononitrate (Imdur -) 30 mg PO DAILY [facility]CLUD[facility] Last Admin: 07/07/16 09:52 Dose: 30 mg Levothyroxine Sodium (Synthroid -) 50 mcg PO DAILY@0700 COUNT [facility]CLUD[facility] Last Admin: 07/07/16 06:29 Dose: 50 mcg Lidocaine (Lidoderm Patch -) 1 patch TP DAILY [facility]CLUD[facility] Last Admin: 07/07/16 10:08 Dose: 1 patch Metoclopramide HCl (Reglan Injection -) 10 mg IVPB Q6H COUNT [facility]CLUDES [facility] Last Admin: 07/07/16 09:50 Dose: 10 mg Nystatin (Mycostatin Cream -) 1 applic TP BID [facility]CLUD[facility] Last Admin: 07/07/16 09:52 Dose: 1 applic Ondansetron HCl (Zofran Injection) 8 mg IVPB Q6H PRN PRN Reason: NAUSEA AND/OR VOMITING Oxycodone HCl (Roxicodone -) 5 mg PO Q4H PRN PRN Reason: PAIN LEVEL 6-10 Last Admin: 07/07/16 08:03 Dose: 5 mg Pantoprazole Sodium (Protonix 40mg Ivpb (Pre-Docked)) 40 mg IVPB BID COUNT [facility]CLUDES [facility] Last Admin: 07/07/16 09:49 Dose: 40 mg Polyethylene Glycol (Miralax (For Daily Use) -) 17 gm PO DAILY COUNT [facility]CLUD[facility] Last Admin: 07/07/16 09:53 Dose: 17 grams Senna/Docusate Sodium (Pericolace -) 2 tablet PO HS COUNT [facility]CLUDES [facility] Last Admin: 07/06/16 22:35 Dose: 2 tablet Simethicone (Mylicon -) 80 mg PO QID COUNT [facility]CLUDES [facility] Last Admin: 07/07/16 09:51 Dose: 80 mg - Objective Vital Signs: Vital Signs Temperature 98.7 F 07/07/16 10:00 Pulse Rate 58 L 07/07/16 10:00 Respiratory Rate 18 07/07/16 10:00 Blood Pressure 130/47 07/07/16 10:00 O2 Sat by Pulse Oximetry (%) 96 07/07/16 01:56 Constitutional: Yes: No Distress, Calm Eyes: Yes: Conjunctiva Clear HENT: Yes: Atraumatic Neck: Yes: Supple Cardiovascular: Yes: Regular Rate and Rhythm Respiratory: Yes: Diminished Gastrointestinal: Yes: Soft. No: Tenderness Genitourinary: No: Hematuria Musculoskeletal: No: Joint Stiffness, Joint Swelling Extremities: No: Cold, Cool Edema: Yes (RLE lymphedema) Wound/Incision: Yes: Other (L BKA) Neurological: Yes: Alert, Oriented Psychiatric: Yes: Alert, Oriented Labs: CBC, BMP 07/06/16 13:30 07/07/16 05:35 INR, PTT INR 1.28 (0.82-1.09) H 07/03/16 05:45 - ....Imaging Other: Report Reviewed Assessment/Plan The patient is a 71 year old female with significant past medical history of hypertension, hyperlipidemia, diabetes, CAD, CHF, MIx2, COPD (O2 dependent 2L), and renal insufficiency who presents to the emergency department sent from wound care by Dr. Alonso for further evaluation of a left lower extremity wound. Nonhealing after ATB and HBO tx. Pt nonambulatory for years weed eradicator NHR; DNR DNI but she agreed to have intubation if needed for general anesthesia s/p L BKA for L foot gangrene; stable h/o ARF on CRF improving, anemia, NGT in for gastroparesis; COPD respiratory failure, CHF volume overload; anemia; morbid obesity; cardio, GI, renal f/u clinimix iv will DC pt tolerated po diet IV ATB per ID; DC ATB? wound stump care per vascular sx; gastric DVT aspiration PFX pain meds prn f/u labs and xrays prognosis guarded d/w pt and staff
[2016-07-07] MEDS ORDERED: FUROSEMIDE 100 MG/10 ML INJECTABLE VIAL ONE (13:13)
[2016-07-07] MEDS: AMINO ACIDS 4.25%/D5W 1,000 ML IV SCH (13:26)
--- NOTE | 2016-07-07 14:18 | PN ---
Progress Note (short form) - Note Progress Note: GI FOR DR PANDYA PT TAKING FULL LIQUIDS WITHOUT DIFFICULTY NO N/V/F/C/S NO ABD PAIN EATING IN SMALL AMOUNTS NO HEMATEMESIS NO TARRY STOOLS S/P AMPUTATION WEAKNESS/PAIN ANASARCA CT SCAN WITHOUT OBSTRUCTION DIET ADVANCED SLOWLY AND APPEARS TOLERATING CONTINUE TO ADVANCE/ OBSERVE
[2016-07-07] MEDS ORDERED: PT OWN MED DRAWER 7, Y5N ONE (18:47)
[2016-07-07] MEDS: SENNOSIDES/DOCUSATE COMBO (SENNA PLUS) TABLET (UD) PO SCH (22:12)
[2016-07-07] MEDS: ATORVASTATIN CA 20 MG TABLET (FP) PO SCH (22:12)
[2016-07-07] MEDS: LACTATED RINGERS SOLUTION 1,000 ML IV SCH (22:14)
[2016-07-08] MEDS: AMINO ACIDS 4.25%/D5W 1,000 ML IV SCH (01:36)
[2016-07-08] MEDS: METOCLOPRAMIDE HCL INJECTION 10 MG/2 ML VIAL IVPB SCH ×2 (02:00→09:46)
[2016-07-08] MEDS: LEVOTHYROXINE NA 50 MCG TABLET (FP) PO SCH (06:18)
[2016-07-08] MEDS: INSULIN DETEMIR 100 UNITS/ML MDV SQ SCH (06:18)
[2016-07-08] MEDS: INSULIN SLIDING SCALE (NOVOLOG) 1 VIAL SQ SCH ×4 (06:19→21:59)
--- NOTE | 2016-07-08 09:29 | PN ---
Progress Note, Physician Chief Complaint: chf History of Present Illness: denies sob; no cp, palpit; + legs swollen no cigs - Current Medication List Current Medications: Active Medications Al Hydroxide/Mg Hydroxide (Mylanta Oral Suspension -) 30 ml PO BID [facility] Last Admin: 07/07/16 22:13 Dose: 30 ml Albuterol Sulfate (Ventolin 0.083% Nebulizer Soln -) 1 amp NEB Q6H PRN PRN Reason: SHORT OF BREATH/WHEEZING Aspirin (Ecotrin -) 81 mg PO DAILY [facility] Last Admin: 07/07/16 09:51 Dose: 81 mg Atorvastatin Calcium (Lipitor -) 20 mg PO HS [facility] Last Admin: 07/07/16 22:12 Dose: 20 mg Carvedilol (Coreg -) 3.125 mg PO BID [facility] Last Admin: 07/07/16 22:12 Dose: 3.125 mg Collagenase (Santyl -) 1 applic TP DAILY [facility] Last Admin: 07/07/16 10:00 Dose: Not Given Cyanocobalamin (Vitamin B12 -) 1,000 mcg PO DAILY [facility] Last Admin: 07/07/16 09:52 Dose: 1,000 mcg Epoetin Dawood (Procrit -) 10,000 unit SQ Q7D [facility] Heparin Sodium (Porcine) (Heparin -) 5,000 unit SQ BID [facility] Last Admin: 07/07/16 22:12 Dose: 5,000 unit Hydromorphone HCl (Dilaudid Injection -) 1 mg IVPB Q4H PRN PRN Reason: PAIN Last Admin: 07/06/16 22:37 Dose: 1 mg Amino Acids (Clinimix -) 1,000 mls @ 42 mls/hr IV Q23H [facility] Last Admin: 07/08/16 01:36 Dose: Not Given Lactated Ringer's (Lactated Ringers Solution) 1,000 mls @ 125 mls/hr IV ASDIR [facility] Last Admin: 07/07/16 22:14 Dose: Not Given Insulin Aspart (Novolog Vial Sliding Scale -) 1 vial SQ ACHS [facility] PRN Reason: Protocol Last Admin: 07/08/16 06:19 Dose: 2 units Insulin Detemir (Levemir Vial) 10 units SQ DAILY@0700 [facility] Last Admin: 07/08/16 06:18 Dose: 10 units Isosorbide Mononitrate (Imdur -) 30 mg PO DAILY [facility] Last Admin: 07/07/16 09:52 Dose: 30 mg Levothyroxine Sodium (Synthroid -) 50 mcg PO DAILY@0700 [facility] Last Admin: 07/08/16 06:18 Dose: 50 mcg Lidocaine (Lidoderm Patch -) 1 patch TP DAILY [facility] Last Admin: 07/07/16 10:08 Dose: 1 patch Metoclopramide HCl (Reglan Injection -) 10 mg IVPB Q6H [facility] Last Admin: 07/08/16 02:00 Dose: Not Given Nystatin (Mycostatin Cream -) 1 applic TP BID [facility] Last Admin: 07/07/16 22:13 Dose: 1 applic Ondansetron HCl (Zofran Injection) 8 mg IVPB Q6H PRN PRN Reason: NAUSEA AND/OR VOMITING Oxycodone HCl (Roxicodone -) 5 mg PO Q4H PRN PRN Reason: PAIN LEVEL 6-10 Last Admin: 07/07/16 08:03 Dose: 5 mg Pantoprazole Sodium (Protonix 40mg Ivpb (Pre-Docked)) 40 mg IVPB BID [facility] Last Admin: 07/07/16 22:12 Dose: 40 mg Polyethylene Glycol (Miralax (For Daily Use) -) 17 gm PO DAILY [facility] Last Admin: 07/07/16 09:53 Dose: 17 grams Senna/Docusate Sodium (Pericolace -) 2 tablet PO HS [facility] Last Admin: 07/07/16 22:12 Dose: 2 tablet Simethicone (Mylicon -) 80 mg PO QID [facility] Last Admin: 07/07/16 22:12 Dose: 80 mg - Objective Vital Signs: Vital Signs Temperature 98.4 F 07/08/16 05:58 Pulse Rate 72 07/08/16 05:58 Respiratory Rate 20 07/08/16 05:58 Blood Pressure 144/65 07/08/16 05:58 O2 Sat by Pulse Oximetry (%) 97 07/08/16 02:25 Constitutional: Yes: No Distress, Calm, Obese Eyes: No: Sclera Icterus HENT: No: Nasal Congestion Cardiovascular: Yes: Regular Rate and Rhythm, S1, S2, Other (PMI non diplaced). No: JVD (tds habitus ++), Gallop, Murmur Respiratory: Yes: CTA Bilaterally (anteriorly). No: Accessory Muscle Use, Rales , Wheezes Gastrointestinal: Yes: Normal Bowel Sounds, Soft. No: Tenderness Musculoskeletal: Yes: Other (No kyphosis) Extremities: No: Cold Edema: Yes (tense nonpitting to hips) Integumentary: No: Jaundice Neurological: Yes: Alert. No: Seizure Psychiatric: No: Agitated Labs: CBC, BMP 07/06/16 13:30 07/07/16 05:35 INR, PTT INR 1.28 (0.82-1.09) H 07/03/16 05:45 - ....Imaging EKG: Other (tele: NSR, 17b run VT) Assessment/Plan Echo 07/01/2016: Mild decr EF. paradoxical septal motion with mild HK of anteroseptum. RV not seen. 1+ mr/tr. mild (although MG only 12 mmHg). Echo 06/2015: mild-mod decr EF--global; nl RV; mild LAE; mild-mod MR/TR; RVSP 30- 40; small peric effusion; + pleural eff echo 12/06/15: mild lvh. nl lv/rv, Septal motion c/w RV volume overload. Ab diastology. mild cheryl, mild-mod mr, mild as, mod-sev tr, rvsp 50, mod pericardial eff, no tamponade. pleural effusion. echo 12/11/15: focused, Nl lv. trivial pericardial eff. Pleural effusion. EKG 06/27/16: sr, nl intervals, nonspecific tw changes, no sig change prior a/p: 71 yo with h/o HFpEF, CAD s/p IL, HTN, HL, pHTN, MIRIAM, o2 dep't copd, CKD, IDDM, hypothyroid and chronic LLE cellulitis, here with non healing left foot wound/gangrene. chronic foot wound, gangrene, now s/p bka 07/03/16: -vascular, ID following chronic HFpEF/pulm HTN/venous ins'y/acute on chronic hypoxic and hypercapneic resp failure: - pt with volume overload during mult prior admits here--vol status is always [id number] to assess given morbidly obese neck hiding JVD, chronic venous ins'y/lymphedema of legs, and chronically very abnormal CXR markings due to overlying soft tissue - suspect chronic RV failure syndrome clinically, with evidence of this reported intermittently on serial echoes here over the years - cr remains above prior baseline--? new baseline now s/p infection-related ATN? - long NSVT on tele ? sign of incr'd filling pressures - would like to stop fluids and give trial of diuresis with daily renal fxn f/u- -d/w dr erwin who agrees to trial, will start today - pt with mult RFs for PE but creat prohibitive for IV contrast, and she cannot currently cooperate with V/Q; d/w'd dr daily who feels cause of her current decompensation is more likely sec to exacerbation of her chronic lung disease PSVT: -likely brief run of ATach on tele 07/01. no recurrence. CAD, h/o NSTEMI: -has previously refused stress tests. h/o NSTEMI x 2 (2012, 2014) in setting of demand (sepsis/anemia) -MATEO deferred previously due to labile creat's--no change; -cath previously deferred due to: pt preference; hi risk of vascular complications (obese habitus), hi risk of BERNARDINO, and h/o recurrent anemia, possible occult GIB -currently without anginal sx's. EKG unchanged. Con't statin, BB, asa, imdur CKD/michael: - baseline creat 1.7-2.0 - michael suspected hypoperfusion from cellulitis/anemia -- on IVF here -diuretics held, received fluids here -creat improved (from peak of 2.9), though still abover prior baseline -trial of lasix started by renal yest -observe daily BMP trend VTach: -17 beat run of NSVT on tele -keep K >4 and Mag >2 -change coreg 3.125 to toprol 25 qd -bradycardia on tele earlier--was persistent so coreg dose decr'd but pt likely with hi vagal tone persistently given known obesity/hypoventilation syndrome and laying in bed sluggishly for most (all?) of this admit - monitor tele anemia: -chronic, baseline runs 8s-9s; -freq acute drops/PRBCs in past; currently near baseline HTN: -controlled gastroparesis: -s/p ngt, now on liquids -GI following
[2016-07-08] MEDS: SIMETHICONE 80 MG TAB.CHEW (FP) PO SCH ×4 (09:45→22:11)
[2016-07-08] MEDS: PANTOPRAZOLE SODIUM 40 MG/100 ML PRE-DOCKED IVPB SCH (09:46)
[2016-07-08] MEDS: MAG HYDROX/AL HYDROX/SIMETH 30 ML UNIT-DOSE CUP PO SCH ×2 (09:46→22:11)
[2016-07-08] MEDS: CYANOCOBALAMIN 1,000 MCG TABLET (FP) PO SCH (09:46)
[2016-07-08] MEDS: ISOSORBIDE MONONITRATE 30 MG TAB.SR.24H (FP) PO SCH (09:46)
[2016-07-08] MEDS: POLYETHYLENE GLYCOL 3350 119 GM BTL PO SCH (09:46)
[2016-07-08] MEDS: NYSTATIN 100,000 UNIT/GM TOPICAL CREAM 15 GM TUBE TP SCH ×2 (09:46→22:19)
[2016-07-08] MEDS: CARVEDILOL 3.125 MG TABLET (FP) PO SCH (09:46)
[2016-07-08] MEDS: LIDOCAINE 5% TOPICAL PATCH TP SCH (09:47)
[2016-07-08] MEDS: ASPIRIN COATED 81 MG TABLET.EC PO SCH (09:47)
[2016-07-08] MEDS: HEPARIN NA (PORCINE) 5,000 UNITS/ML 1ML VIAL SQ SCH ×2 (09:48→22:11)
[2016-07-08] MEDS: oxyCODONE HCL 5 MG TABLET PO PRN (09:50)
[2016-07-08] MEDS: COLLAGENASE CLOSTRIDIUM HIST. 30 GRAMS TUBE TP SCH (10:00)
--- NOTE | 2016-07-08 10:32 | PN ---
Progress Note (short form) - Note Progress Note: no complaints alert remains afebrile off antibiotics Vital Signs Period Temp Pulse Resp BP Sys/Hagan Pulse Ox Last 24 Hr 97.5 F-98.4 F 59-77 18-20 135-144/46-65 95-97 cor-rrr lungs decreased bs at bases abd soft,nt ext edema unchanged left BKA with dressing intact CBC, BMP 07/06/16 13:30 07/07/16 05:35 Microbiology 06/26/16 13:26 Blood - Peripheral Venous Blood Culture - Final NO GROWTH AFTER 5 DAYS INCUBATION 06/26/16 13:26 Blood - Peripheral Venous Blood Culture - Final NO GROWTH AFTER 5 DAYS INCUBATION Current Medications Al Hydroxide/Mg Hydroxide (Mylanta Oral Suspension -) 30 ml PO BID [facility] Last Admin: 07/08/16 09:46 Dose: 30 ml Albuterol Sulfate (Ventolin 0.083% Nebulizer Soln -) 1 amp NEB Q6H PRN PRN Reason: SHORT OF BREATH/WHEEZING Aspirin (Ecotrin -) 81 mg PO DAILY [facility] Last Admin: 07/08/16 09:47 Dose: 81 mg Atorvastatin Calcium (Lipitor -) 20 mg PO HS [facility] Last Admin: 07/07/16 22:12 Dose: 20 mg Carvedilol (Coreg -) 3.125 mg PO BID [facility] Last Admin: 07/08/16 09:46 Dose: 3.125 mg Collagenase (Santyl -) 1 applic TP DAILY [facility] Last Admin: 07/07/16 10:00 Dose: Not Given Cyanocobalamin (Vitamin B12 -) 1,000 mcg PO DAILY [facility] Last Admin: 07/08/16 09:46 Dose: 1,000 mcg Epoetin Dawood (Procrit -) 10,000 unit SQ Q7D [facility] Heparin Sodium (Porcine) (Heparin -) 5,000 unit SQ BID [facility] Last Admin: 07/08/16 09:48 Dose: 5,000 unit Hydromorphone HCl (Dilaudid Injection -) 1 mg IVPB Q4H PRN PRN Reason: PAIN Last Admin: 07/06/16 22:37 Dose: 1 mg Amino Acids (Clinimix -) 1,000 mls @ 42 mls/hr IV Q23H [facility] Last Admin: 07/08/16 01:36 Dose: Not Given Lactated Ringer's (Lactated Ringers Solution) 1,000 mls @ 125 mls/hr IV ASDIR [facility] Last Admin: 07/07/16 22:14 Dose: Not Given Insulin Aspart (Novolog Vial Sliding Scale -) 1 vial SQ ACHS [facility] PRN Reason: Protocol Last Admin: 07/08/16 06:19 Dose: 2 units Insulin Detemir (Levemir Vial) 10 units SQ DAILY@0700 [facility] Last Admin: 07/08/16 06:18 Dose: 10 units Isosorbide Mononitrate (Imdur -) 30 mg PO DAILY [facility] Last Admin: 07/08/16 09:46 Dose: 30 mg Levothyroxine Sodium (Synthroid -) 50 mcg PO DAILY@0700 [facility] Last Admin: 07/08/16 06:18 Dose: 50 mcg Lidocaine (Lidoderm Patch -) 1 patch TP DAILY [facility] Last Admin: 07/08/16 09:47 Dose: 1 patch Metoclopramide HCl (Reglan Injection -) 10 mg IVPB Q6H [facility] Last Admin: 07/08/16 09:46 Dose: Not Given Nystatin (Mycostatin Cream -) 1 applic TP BID [facility] Last Admin: 07/08/16 09:46 Dose: 1 applic Ondansetron HCl (Zofran Injection) 8 mg IVPB Q6H PRN PRN Reason: NAUSEA AND/OR VOMITING Oxycodone HCl (Roxicodone -) 5 mg PO Q4H PRN PRN Reason: PAIN LEVEL 6-10 Last Admin: 07/08/16 09:50 Dose: 5 mg Pantoprazole Sodium (Protonix 40mg Ivpb (Pre-Docked)) 40 mg IVPB BID [facility] Last Admin: 07/08/16 09:46 Dose: 40 mg Polyethylene Glycol (Miralax (For Daily Use) -) 17 gm PO DAILY [facility] Last Admin: 07/08/16 09:46 Dose: 17 grams Senna/Docusate Sodium (Pericolace -) 2 tablet PO HS [facility] Last Admin: 07/07/16 22:12 Dose: 2 tablet Simethicone (Mylicon -) 80 mg PO QID [facility] Last Admin: 07/08/16 09:45 Dose: 80 mg a/p s/p BKA for gangrene-pod#5 wbc normal surgery doing dressing changes local wound care per surgery off antibiotics please call back if needed anasarca diabetes CKD
[2016-07-08] MEDS ORDERED: METOPROLOL SUCCINATE 50 MG TAB.SR.24H (FP) PO SCH (11:00)
--- NOTE | 2016-07-08 11:12 | PN ---
Progress Note, Physician Chief Complaint: in bed axox3 nad no c/o afebrile, tolerated po weight up to 302 will stop all IVF and restart low dose lasix - Current Medication List Current Medications: Active Medications Al Hydroxide/Mg Hydroxide (Mylanta Oral Suspension -) 30 ml PO BID [facility] Last Admin: 07/08/16 09:46 Dose: 30 ml Albuterol Sulfate (Ventolin 0.083% Nebulizer Soln -) 1 amp NEB Q6H PRN PRN Reason: SHORT OF BREATH/WHEEZING Aspirin (Ecotrin -) 81 mg PO DAILY [facility] Last Admin: 07/08/16 09:47 Dose: 81 mg Atorvastatin Calcium (Lipitor -) 20 mg PO HS [facility] Last Admin: 07/07/16 22:12 Dose: 20 mg Collagenase (Santyl -) 1 applic TP DAILY [facility] Last Admin: 07/07/16 10:00 Dose: Not Given Cyanocobalamin (Vitamin B12 -) 1,000 mcg PO DAILY [facility] Last Admin: 07/08/16 09:46 Dose: 1,000 mcg Epoetin Dawood (Procrit -) 10,000 unit SQ Q7D [facility] Furosemide (Lasix -) 40 mg PO DAILY [facility] Heparin Sodium (Porcine) (Heparin -) 5,000 unit SQ BID [facility] Last Admin: 07/08/16 09:48 Dose: 5,000 unit Insulin Aspart (Novolog Vial Sliding Scale -) 1 vial SQ [facility] PRN Reason: Protocol Last Admin: 07/08/16 06:19 Dose: 2 units Insulin Detemir (Levemir Vial) 10 units SQ DAILY@0700 [facility] Last Admin: 07/08/16 06:18 Dose: 10 units Isosorbide Mononitrate (Imdur -) 30 mg PO DAILY [facility] Last Admin: 07/08/16 09:46 Dose: 30 mg Levothyroxine Sodium (Synthroid -) 50 mcg PO DAILY@0700 [facility] Last Admin: 07/08/16 06:18 Dose: 50 mcg Lidocaine (Lidoderm Patch -) 1 patch TP DAILY [facility] Last Admin: 07/08/16 09:47 Dose: 1 patch Metoclopramide HCl (Reglan -) 10 mg PO ACHS [facility] Metoprolol Succinate (Toprol Xl -) 25 mg PO DAILY [facility] Nystatin (Mycostatin Cream -) 1 applic TP BID [facility] Last Admin: 07/08/16 09:46 Dose: 1 applic Oxycodone HCl (Roxicodone -) 5 mg PO Q4H PRN PRN Reason: PAIN LEVEL 6-10 Last Admin: 07/08/16 09:50 Dose: 5 mg Pantoprazole Sodium (Protonix -) 20 mg PO DAILY [facility] Polyethylene Glycol (Miralax (For Daily Use) -) 17 gm PO DAILY [facility] Last Admin: 07/08/16 09:46 Dose: 17 grams Senna/Docusate Sodium (Pericolace -) 2 tablet PO HS [facility] Last Admin: 07/07/16 22:12 Dose: 2 tablet Simethicone (Mylicon -) 80 mg PO QID [facility] Last Admin: 07/08/16 09:45 Dose: 80 mg - Objective Vital Signs: Vital Signs Temperature 98.4 F 07/08/16 05:58 Pulse Rate 72 07/08/16 05:58 Respiratory Rate 20 07/08/16 05:58 Blood Pressure 144/65 07/08/16 05:58 O2 Sat by Pulse Oximetry (%) 97 07/08/16 02:25 Constitutional: Yes: No Distress, Calm Eyes: Yes: Conjunctiva Clear HENT: Yes: Atraumatic Neck: Yes: Supple Cardiovascular: Yes: Regular Rate and Rhythm Respiratory: Yes: Diminished Gastrointestinal: Yes: Soft. No: Distention, Tenderness Genitourinary: No: Hematuria Edema: Yes (RLE) Integumentary: Yes: Venous Stasis Changes Neurological: Yes: Alert, Oriented. No: WNL Psychiatric: Yes: Alert, Oriented. No: Agitated, Suicidal Ideation Labs: CBC, BMP 07/06/16 13:30 07/07/16 05:35 INR, PTT INR 1.28 (0.82-1.09) H 07/03/16 05:45 - ....Imaging Other: Report Reviewed Assessment/Plan The patient is a 71 year old female with significant past medical history of hypertension, hyperlipidemia, diabetes, CAD, CHF, MIx2, COPD (O2 dependent 2L), and renal insufficiency who presents to the emergency department sent from wound care by Dr. Alonso for further evaluation of a left lower extremity wound. Nonhealing after ATB and HBO tx. Pt nonambulatory for years assisted NHR; DNR DNI but she agreed to have intubation if needed for general anesthesia s/p L BKA for L foot gangrene; stable h/o ARF on CRF improving, anemia, NGT in for gastroparesis; COPD respiratory failure, CHF volume overload; anemia; morbid obesity; cardio, GI, renal f/u clinimix iv will DC pt tolerated po diet stop all ICF IV clinimix and IV meds, switch to po OFF antibtioics wound stump care per vascular sx; gastric DVT aspiration PFX pain meds prn f/u labs and xrays prognosis guarded DC to [place] whne cleared by vascular sx d/w pt and staff
[2016-07-08] MEDS ORDERED: FUROSEMIDE 40 MG TABLET (FP) PO SCH (11:15)
[2016-07-08] MEDS ORDERED: FUROSEMIDE 40 MG/4 ML INJECTABLE VIAL IVPUSH ONE (11:24)
--- NOTE | 2016-07-08 11:30 | PN ---
Progress Note (short form) - Note Progress Note: Renal follow up for CRISTELA on CKD Pt seen and examined at the bedside no sob or chest pain NGT removed, tolerating Po diet no N/V/D on NC O2 Vital Signs Temperature 98.4 F 07/08/16 05:58 Pulse Rate 72 07/08/16 05:58 Respiratory Rate 20 07/08/16 05:58 Blood Pressure 144/65 07/08/16 05:58 O2 Sat by Pulse Oximetry (%) 97 07/08/16 02:25 Intake & Output 07/05/16 07/06/16 07/07/16 07/08/16 22:59 22:59 23:59 23:59 Intake Total 504 Output Total Balance 504 Weight 302 lb 11.2 oz Gen: NAD CVS: RRR, No M/R Lungs: Dec BS throughout (anterior exam) Abd: soft, Obese, no tenderness Ext: 2+ edema extending o thighs CBC, BMP 07/06/16 13:30 07/07/16 05:35 Current Medications Al Hydroxide/Mg Hydroxide (Mylanta Oral Suspension -) 30 ml PO BID [facility] Last Admin: 07/08/16 09:46 Dose: 30 ml Albuterol Sulfate (Ventolin 0.083% Nebulizer Soln -) 1 amp NEB Q6H PRN PRN Reason: SHORT OF BREATH/WHEEZING Aspirin (Ecotrin -) 81 mg PO DAILY [facility] Last Admin: 07/08/16 09:47 Dose: 81 mg Atorvastatin Calcium (Lipitor -) 20 mg PO HS [facility] Last Admin: 07/07/16 22:12 Dose: 20 mg Collagenase (Santyl -) 1 applic TP DAILY [facility] Last Admin: 07/07/16 10:00 Dose: Not Given Cyanocobalamin (Vitamin B12 -) 1,000 mcg PO DAILY [facility] Last Admin: 07/08/16 09:46 Dose: 1,000 mcg Epoetin Dawood (Procrit -) 10,000 unit SQ Q7D [facility] Furosemide (Lasix Injection -) 40 mg IVPUSH ONCE ONE Stop: 07/08/16 11:25 Heparin Sodium (Porcine) (Heparin -) 5,000 unit SQ BID [facility] Last Admin: 07/08/16 09:48 Dose: 5,000 unit Furosemide 100 mg/ Dextrose 50 mls @ 2.5 mls/hr IVPB TITR [facility] PRN Reason: 5 MG/HR Insulin Aspart (Novolog Vial Sliding Scale -) 1 vial SQ [facility] PRN Reason: Protocol Last Admin: 07/08/16 06:19 Dose: 2 units Insulin Detemir (Levemir Vial) 10 units SQ DAILY@0700 [facility] Last Admin: 07/08/16 06:18 Dose: 10 units Isosorbide Mononitrate (Imdur -) 30 mg PO DAILY [facility] Last Admin: 07/08/16 09:46 Dose: 30 mg Levothyroxine Sodium (Synthroid -) 50 mcg PO DAILY@0700 [facility] Last Admin: 07/08/16 06:18 Dose: 50 mcg Lidocaine (Lidoderm Patch -) 1 patch TP DAILY [facility] Last Admin: 07/08/16 09:47 Dose: 1 patch Metoclopramide HCl (Reglan -) 10 mg PO [facility] Metoprolol Succinate (Toprol Xl -) 25 mg PO DAILY [facility] Nystatin (Mycostatin Cream -) 1 applic TP BID [facility] Last Admin: 07/08/16 09:46 Dose: 1 applic Oxycodone HCl (Roxicodone -) 5 mg PO Q4H PRN PRN Reason: PAIN LEVEL 6-10 Last Admin: 07/08/16 09:50 Dose: 5 mg Pantoprazole Sodium (Protonix -) 20 mg PO DAILY [facility] Polyethylene Glycol (Miralax (For Daily Use) -) 17 gm PO DAILY [facility] Last Admin: 07/08/16 09:46 Dose: 17 grams Senna/Docusate Sodium (Pericolace -) 2 tablet PO HS [facility] Last Admin: 07/07/16 22:12 Dose: 2 tablet Simethicone (Mylicon -) 80 mg PO QID [facility] Last Admin: 07/08/16 09:45 Dose: 80 mg A/p 71 year old Woman with PMhx of CKD, CHF, Morbid Obesity, IDDM, Anemia who presented with worsening LE wounds and found to have CRISTELA with BUN/Cr of 90/2.5. #CRISTELA on CKD with Anasarca Renal function improved, still worse then baseline at this time Given weight gain and worsening LE edema will need diuresis Give IV lasix 40mg x 1 and then start lasix gtt at 5mg per hour tonight trend BUN/Cr, electrolytes and daily weights no indication for S[employer]ANGER dose all meds for Cr Cl less then 20 #LE gangrene/PVD s/p left BKA pain control surgical follow up wound care Thank you Lambert Mcnamara
[2016-07-08] MEDS: PANTOPRAZOLE 20 MG TABLET (FP) PO SCH (11:53)
[2016-07-08] MEDS ORDERED: FUROSEMIDE 100 MG/10 ML INJECTABLE VIAL ONE (13:14)
[2016-07-08] MEDS: METOPROLOL SUCCINATE 25 MG TAB.SR.24H (FP) PO SCH (13:53)
--- NOTE | 2016-07-08 14:03 | PN ---
Progress Note (short form) - Note Progress Note: PULMONARY Denies shortness of breath or chest pain. Last Vital Signs Temp Pulse Resp BP Pulse Ox 98.4 F 76 20 144/65 98 07/08/16 05:58 07/08/16 10:40 07/08/16 05:58 07/08/16 05:58 07/08/16 10:40 Gen: NAD at rest Heart: RRR Lung: decreased breath sounds at the bases Abd: soft, nontender Ext: + edema, LLE in binder CBC, BMP 07/06/16 13:30 07/07/16 05:35 Active Medications Al Hydroxide/Mg Hydroxide (Mylanta Oral Suspension -) 30 ml PO BID [facility] Last Admin: 07/08/16 09:46 Dose: 30 ml Albuterol Sulfate (Ventolin 0.083% Nebulizer Soln -) 1 amp NEB Q6H PRN PRN Reason: SHORT OF BREATH/WHEEZING Aspirin (Ecotrin -) 81 mg PO DAILY [facility] Last Admin: 07/08/16 09:47 Dose: 81 mg Atorvastatin Calcium (Lipitor -) 20 mg PO HS [facility] Last Admin: 07/07/16 22:12 Dose: 20 mg Collagenase (Santyl -) 1 applic TP DAILY [facility] Last Admin: 07/08/16 10:00 Dose: Not Given Cyanocobalamin (Vitamin B12 -) 1,000 mcg PO DAILY [facility] Last Admin: 07/08/16 09:46 Dose: 1,000 mcg Epoetin Dawood (Procrit -) 10,000 unit SQ Q7D [facility] Heparin Sodium (Porcine) (Heparin -) 5,000 unit SQ BID [facility] Last Admin: 07/08/16 09:48 Dose: 5,000 unit Furosemide 100 mg/ Dextrose 50 mls @ 2.5 mls/hr IVPB TITR [facility]; 5 MG/HR PRN Reason: Protocol Insulin Aspart (Novolog Vial Sliding Scale -) 1 vial SQ ACHS [facility] PRN Reason: Protocol Last Admin: 07/08/16 14:01 Dose: 2 units Insulin Detemir (Levemir Vial) 10 units SQ DAILY@0700 [facility] Last Admin: 07/08/16 06:18 Dose: 10 units Isosorbide Mononitrate (Imdur -) 30 mg PO DAILY [facility] Last Admin: 07/08/16 09:46 Dose: 30 mg Levothyroxine Sodium (Synthroid -) 50 mcg PO DAILY@0700 [facility] Last Admin: 07/08/16 06:18 Dose: 50 mcg Lidocaine (Lidoderm Patch -) 1 patch TP DAILY [facility] Last Admin: 07/08/16 09:47 Dose: 1 patch Metoclopramide HCl (Reglan -) 10 mg PO ACHS [facility] Metoprolol Succinate (Toprol Xl -) 25 mg PO DAILY [facility] Last Admin: 07/08/16 13:53 Dose: 25 mg Nystatin (Mycostatin Cream -) 1 applic TP BID [facility] Last Admin: 07/08/16 09:46 Dose: 1 applic Oxycodone HCl (Roxicodone -) 5 mg PO Q4H PRN PRN Reason: PAIN LEVEL 6-10 Last Admin: 07/08/16 09:50 Dose: 5 mg Pantoprazole Sodium (Protonix -) 20 mg PO DAILY [facility] Last Admin: 07/08/16 11:53 Dose: Not Given Polyethylene Glycol (Miralax (For Daily Use) -) 17 gm PO DAILY [facility] Last Admin: 07/08/16 09:46 Dose: 17 grams Senna/Docusate Sodium (Pericolace -) 2 tablet PO HS [facility] Last Admin: 07/07/16 22:12 Dose: 2 tablet Simethicone (Mylicon -) 80 mg PO QID [facility] Last Admin: 07/08/16 13:54 Dose: Not Given A/P 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
--- NOTE | 2016-07-08 16:58 | PN ---
Progress Note (short form) - Note Progress Note: Vascular Surgery-Dr. Alonso Patient seen and examined. No complaints. Last Vital Signs Temp Pulse Resp BP Pulse Ox 98.5 F 78 22 138/62 98 07/08/16 15:57 07/08/16 15:57 07/08/16 15:57 07/08/16 15:57 07/08/16 10:40 Exam: LLE: Incision clean and dry with bennett intact, minimal drainage noted on dressing, wound edges without ischemia/erythema. Area of sloughed skin above incision with small area of blistering. Dressing replaced with telfa, 4x4's, MATEO, and knee immobilizer. Patient toelrated dressing change well. POD#5 s/p left BKA continue daily dressing changes pain control
[2016-07-08] MEDS: METOCLOPRAMIDE HCL 10 MG TABLET (FP) PO SCH ×2 (18:00→22:11)
[2016-07-08] MEDS: FUROSEMIDE INJECTION 100 MG in DEXTROSE 5%-WATER - 40 ML IVPB SCH (18:25)
--- NOTE | 2016-07-08 20:38 | PN ---
Progress Note (short form) - Note Progress Note: Vascular surgery Pt doing well. No issues. Staple line healing well. Cleared to go back to rehab when medically stable Gaurav Alonso DO
[2016-07-08] MEDS: ATORVASTATIN CA 20 MG TABLET (FP) PO SCH (22:11)
[2016-07-08] MEDS: SENNOSIDES/DOCUSATE COMBO (SENNA PLUS) TABLET (UD) PO SCH (22:11)
[2016-07-09] MEDS: ALBUTEROL SO4 0.083% IH SOL 2.5 MG/3 ML VIAL.NEB. NEB PRN (06:20)
[2016-07-09] MEDS: INSULIN SLIDING SCALE (NOVOLOG) 1 VIAL SQ SCH ×4 (06:37→22:34)
[2016-07-09] MEDS: LEVOTHYROXINE NA 50 MCG TABLET (FP) PO SCH (06:41)
[2016-07-09] MEDS: METOCLOPRAMIDE HCL 10 MG TABLET (FP) PO SCH ×4 (06:41→22:13)
[2016-07-09] MEDS: INSULIN DETEMIR 100 UNITS/ML MDV SQ SCH (06:42)
[2016-07-09 08:12] LABS: BASOPHIL 0.9 % (0-2.0); EOSINOPHIL 3.7 % (0-4.5); MCH 28.5 pg (25.7-33.7); MEAN CELL VOLUME 89.2 fl (80-96); MEAN PLT VOLUME 8.7 fl (7.5-11.1); PLATELET COUNT 185 K/MM3 (134-434); WHITE BLOOD COUNT 6.9 K/mm3 (4.0-10.0)
[2016-07-09 08:39] LABS: CALCIUM 8.4 mg/dL (8.5-10.1); CREATININE 1.7 mg/dL (0.55-1.02); MAGNESIUM 2.1 mg/dL (1.8-2.4); PHOSPHOROUS 3.2 mg/dL (2.5-4.9)
--- NOTE | 2016-07-09 09:45 | PN ---
Progress Note (short form) - Note Progress Note: PULMONARY Denies shortness of breath or chest pain. Started on lasix gtt. Last Vital Signs Temp Pulse Resp BP Pulse Ox 97.5 F L 76 20 160/70 98 07/09/16 06:00 07/09/16 10:35 07/09/16 06:00 07/09/16 06:00 07/09/16 10:45 Gen: NAD at rest Heart: RRR Lung: decreased breath sounds at the bases Abd: soft, nontender Ext: + edema, LLE in binder CBC, BMP 07/09/16 06:17 07/09/16 06:17 Active Medications Al Hydroxide/Mg Hydroxide (Mylanta Oral Suspension -) 30 ml PO BID [facility] Last Admin: 07/09/16 10:07 Dose: 30 ml Albuterol Sulfate (Ventolin 0.083% Nebulizer Soln -) 1 amp NEB Q6H PRN PRN Reason: SHORT OF BREATH/WHEEZING Last Admin: 07/09/16 06:20 Dose: 1 amp Aspirin (Ecotrin -) 81 mg PO DAILY [facility] Last Admin: 07/09/16 10:07 Dose: 81 mg Atorvastatin Calcium (Lipitor -) 20 mg PO HS [facility] Last Admin: 07/08/16 22:11 Dose: 20 mg Cyanocobalamin (Vitamin B12 -) 1,000 mcg PO DAILY [facility] Last Admin: 07/09/16 10:07 Dose: 1,000 mcg Epoetin Dawood (Procrit -) 10,000 unit SQ Q7D [facility] Heparin Sodium (Porcine) (Heparin -) 5,000 unit SQ BID [facility] Last Admin: 07/09/16 10:09 Dose: 5,000 unit Furosemide 100 mg/ Dextrose 50 mls @ 2.5 mls/hr IVPB TITR [facility]; 5 MG/HR PRN Reason: Protocol Last Admin: 07/08/16 18:25 Dose: 2.5 mls/hr Insulin Aspart (Novolog Vial Sliding Scale -) 1 vial SQ ACHS [facility] PRN Reason: Protocol Last Admin: 07/09/16 12:27 Dose: Not Given Insulin Detemir (Levemir Vial) 10 units SQ DAILY@0700 [facility] Last Admin: 07/09/16 06:42 Dose: 10 units Isosorbide Mononitrate (Imdur -) 30 mg PO DAILY [facility] Last Admin: 07/09/16 10:07 Dose: 30 mg Levothyroxine Sodium (Synthroid -) 50 mcg PO DAILY@0700 [facility] Last Admin: 07/09/16 06:41 Dose: 50 mcg Lidocaine (Lidoderm Patch -) 1 patch TP DAILY [facility] Last Admin: 07/09/16 10:08 Dose: 1 patch Metoclopramide HCl (Reglan -) 10 mg PO ACHS [facility] Last Admin: 07/09/16 12:26 Dose: 10 mg Metoprolol Succinate (Toprol Xl -) 25 mg PO DAILY [facility] Last Admin: 07/09/16 10:07 Dose: 25 mg Nystatin (Mycostatin Cream -) 1 applic TP BID [facility] Last Admin: 07/09/16 10:08 Dose: 1 applic Oxycodone HCl (Roxicodone -) 5 mg PO Q4H PRN PRN Reason: PAIN LEVEL 6-10 Last Admin: 07/09/16 10:06 Dose: 5 mg Pantoprazole Sodium (Protonix -) 20 mg PO DAILY [facility] Last Admin: 07/09/16 10:07 Dose: 20 mg Polyethylene Glycol (Miralax (For Daily Use) -) 17 gm PO DAILY [facility] Last Admin: 07/09/16 10:08 Dose: 17 grams Senna/Docusate Sodium (Pericolace -) 2 tablet PO HS [facility] Last Admin: 07/08/16 22:11 Dose: 2 tablet Simethicone (Mylicon -) 80 mg PO QID [facility] Last Admin: 07/09/16 11:18 Dose: Not Given A/P Left Foot Gangrene s/p L BKA Chronic Hypoxic and Hypercapneic Respiratory Failure Acute on Chronic Renal Failure Morbid Obesity MIRIAM/OHS Volume Overload - continue lasix gtt - monitor urine output, creatinine - O2 to keep SpO2 >88% - pain control - incentive spirometry - BiPAP at night and PRN during day - DVT prophylaxis
[2016-07-09] MEDS: oxyCODONE HCL 5 MG TABLET PO PRN ×2 (10:06→22:48)
--- NOTE | 2016-07-09 10:06 | PN ---
Progress Note (short form) - Note Progress Note: Renal follow up for CRISTELA on CKD Pt seen and examined at the bedside reports some pain in the leg on Lasix gtt good urine output weight improved no chest pain or sob Vital Signs Temperature 97.5 F L 07/09/16 06:00 Pulse Rate 80 07/09/16 06:00 Respiratory Rate 20 07/09/16 06:00 Blood Pressure 160/70 07/09/16 06:00 O2 Sat by Pulse Oximetry (%) 98 07/08/16 22:00 Intake & Output 07/06/16 07/07/16 07/08/16 07/09/16 22:59 23:59 23:59 23:59 Intake Total 624 30 Output Total Balance 624 30 Weight 302 lb 11.2 oz 294 lb 6.4 oz Gen: NAD CVS: RRR, No M/R Lungs: Dec BS throughout (anterior exam) Abd: soft, Obese, no tenderness Ext: 2+ edema extending o thighs CBC, BMP 07/09/16 06:17 07/09/16 06:17 Laboratory Tests 07/04/16 07/09/16 05:37 06:17 Calcium 7.5 L 8.4 L Phosphorus 3.2 Magnesium 2.1 Albumin 1.7 L Current Medications Al Hydroxide/Mg Hydroxide (Mylanta Oral Suspension -) 30 ml PO BID [facility] Last Admin: 07/08/16 22:11 Dose: 30 ml Albuterol Sulfate (Ventolin 0.083% Nebulizer Soln -) 1 amp NEB Q6H PRN PRN Reason: SHORT OF BREATH/WHEEZING Last Admin: 07/09/16 06:20 Dose: 1 amp Aspirin (Ecotrin -) 81 mg PO DAILY [facility] Last Admin: 07/08/16 09:47 Dose: 81 mg Atorvastatin Calcium (Lipitor -) 20 mg PO HS [facility] Last Admin: 07/08/16 22:11 Dose: 20 mg Cyanocobalamin (Vitamin B12 -) 1,000 mcg PO DAILY [facility] Last Admin: 07/08/16 09:46 Dose: 1,000 mcg Epoetin Dawood (Procrit -) 10,000 unit SQ Q7D [facility] Heparin Sodium (Porcine) (Heparin -) 5,000 unit SQ BID [facility] Last Admin: 07/08/16 22:11 Dose: 5,000 unit Furosemide 100 mg/ Dextrose 50 mls @ 2.5 mls/hr IVPB TITR [facility]; 5 MG/HR PRN Reason: Protocol Last Admin: 07/08/16 18:25 Dose: 2.5 mls/hr Insulin Aspart (Novolog Vial Sliding Scale -) 1 vial SQ ACHS [facility] PRN Reason: Protocol Last Admin: 07/09/16 06:37 Dose: Not Given Insulin Detemir (Levemir Vial) 10 units SQ DAILY@0700 [facility] Last Admin: 07/09/16 06:42 Dose: 10 units Isosorbide Mononitrate (Imdur -) 30 mg PO DAILY [facility] Last Admin: 07/08/16 09:46 Dose: 30 mg Levothyroxine Sodium (Synthroid -) 50 mcg PO DAILY@0700 [facility] Last Admin: 07/09/16 06:41 Dose: 50 mcg Lidocaine (Lidoderm Patch -) 1 patch TP DAILY [facility] Last Admin: 07/08/16 09:47 Dose: 1 patch Metoclopramide HCl (Reglan -) 10 mg PO [facility] Last Admin: 07/09/16 06:41 Dose: 10 mg Metoprolol Succinate (Toprol Xl -) 25 mg PO DAILY [facility] Last Admin: 07/08/16 13:53 Dose: 25 mg Nystatin (Mycostatin Cream -) 1 applic TP BID [facility] Last Admin: 07/08/16 22:19 Dose: 1 applic Oxycodone HCl (Roxicodone -) 5 mg PO Q4H PRN PRN Reason: PAIN LEVEL 6-10 Last Admin: 07/08/16 09:50 Dose: 5 mg Pantoprazole Sodium (Protonix -) 20 mg PO DAILY [facility] Last Admin: 07/08/16 11:53 Dose: Not Given Polyethylene Glycol (Miralax (For Daily Use) -) 17 gm PO DAILY [facility] Last Admin: 07/08/16 09:46 Dose: 17 grams Senna/Docusate Sodium (Pericolace -) 2 tablet PO HS [facility] Last Admin: 07/08/16 22:11 Dose: 2 tablet Simethicone (Mylicon -) 80 mg PO QID [facility] Last Admin: 07/08/16 22:11 Dose: 80 mg A/p 71 year old Woman with PMhx of CKD, CHF, Morbid Obesity, IDDM, Anemia who presented with worsening LE wounds and found to have CRISTELA with BUN/Cr of 90/2.5. #CRISTELA on CKD with Anasarca Renal function improving with diuresis continue lasix gtt for now Trend BUN/Cr and electrolytes Trend daily weights #LE gangrene/PVD s/p left BKA pain control surgical follow up wound care Thank you Lambert Mcnamara
[2016-07-09] MEDS: ASPIRIN COATED 81 MG TABLET.EC PO SCH (10:07)
[2016-07-09] MEDS: ISOSORBIDE MONONITRATE 30 MG TAB.SR.24H (FP) PO SCH (10:07)
[2016-07-09] MEDS: METOPROLOL SUCCINATE 25 MG TAB.SR.24H (FP) PO SCH (10:07)
[2016-07-09] MEDS: PANTOPRAZOLE 20 MG TABLET (FP) PO SCH (10:07)
[2016-07-09] MEDS: MAG HYDROX/AL HYDROX/SIMETH 30 ML UNIT-DOSE CUP PO SCH ×2 (10:07→22:13)
[2016-07-09] MEDS: CYANOCOBALAMIN 1,000 MCG TABLET (FP) PO SCH (10:07)
[2016-07-09] MEDS: NYSTATIN 100,000 UNIT/GM TOPICAL CREAM 15 GM TUBE TP SCH ×2 (10:08→22:15)
[2016-07-09] MEDS: POLYETHYLENE GLYCOL 3350 119 GM BTL PO SCH (10:08)
[2016-07-09] MEDS: LIDOCAINE 5% TOPICAL PATCH TP SCH (10:08)
[2016-07-09] MEDS: HEPARIN NA (PORCINE) 5,000 UNITS/ML 1ML VIAL SQ SCH ×2 (10:09→22:13)
[2016-07-09] MEDS ORDERED: FUROSEMIDE 40 MG/4 ML INJECTABLE VIAL ONE (10:45)
[2016-07-09] MEDS ORDERED: FUROSEMIDE 100 MG/10 ML INJECTABLE VIAL ONE ×2 (10:56→11:00)
[2016-07-09] MEDS: SIMETHICONE 80 MG TAB.CHEW (FP) PO SCH ×4 (11:18→22:15)
--- NOTE | 2016-07-09 12:18 | PN ---
Progress Note, Physician Chief Complaint: in bed axox3 nad afebrile no pain no SOB; weight 300 lbs started on iv lasix drip - Current Medication List Current Medications: Active Medications Al Hydroxide/Mg Hydroxide (Mylanta Oral Suspension -) 30 ml PO BID [facility] Last Admin: 07/09/16 10:07 Dose: 30 ml Albuterol Sulfate (Ventolin 0.083% Nebulizer Soln -) 1 amp NEB Q6H PRN PRN Reason: SHORT OF BREATH/WHEEZING Last Admin: 07/09/16 06:20 Dose: 1 amp Aspirin (Ecotrin -) 81 mg PO DAILY [facility] Last Admin: 07/09/16 10:07 Dose: 81 mg Atorvastatin Calcium (Lipitor -) 20 mg PO HS [facility] Last Admin: 07/08/16 22:11 Dose: 20 mg Cyanocobalamin (Vitamin B12 -) 1,000 mcg PO DAILY [facility] Last Admin: 07/09/16 10:07 Dose: 1,000 mcg Epoetin Dawood (Procrit -) 10,000 unit SQ Q7D [facility] Heparin Sodium (Porcine) (Heparin -) 5,000 unit SQ BID [facility] Last Admin: 07/09/16 10:09 Dose: 5,000 unit Furosemide 100 mg/ Dextrose 50 mls @ 2.5 mls/hr IVPB TITR [facility]; 5 MG/HR PRN Reason: Protocol Last Admin: 07/08/16 18:25 Dose: 2.5 mls/hr Insulin Aspart (Novolog Vial Sliding Scale -) 1 vial SQ [facility] PRN Reason: Protocol Last Admin: 07/09/16 06:37 Dose: Not Given Insulin Detemir (Levemir Vial) 10 units SQ DAILY@0700 [facility] Last Admin: 07/09/16 06:42 Dose: 10 units Isosorbide Mononitrate (Imdur -) 30 mg PO DAILY [facility] Last Admin: 07/09/16 10:07 Dose: 30 mg Levothyroxine Sodium (Synthroid -) 50 mcg PO DAILY@0700 [facility] Last Admin: 07/09/16 06:41 Dose: 50 mcg Lidocaine (Lidoderm Patch -) 1 patch TP DAILY [facility] Last Admin: 07/09/16 10:08 Dose: 1 patch Metoclopramide HCl (Reglan -) 10 mg PO ACHS [facility] Last Admin: 07/09/16 06:41 Dose: 10 mg Metoprolol Succinate (Toprol Xl -) 25 mg PO DAILY [facility] Last Admin: 07/09/16 10:07 Dose: 25 mg Nystatin (Mycostatin Cream -) 1 applic TP BID [facility] Last Admin: 07/09/16 10:08 Dose: 1 applic Oxycodone HCl (Roxicodone -) 5 mg PO Q4H PRN PRN Reason: PAIN LEVEL 6-10 Last Admin: 07/09/16 10:06 Dose: 5 mg Pantoprazole Sodium (Protonix -) 20 mg PO DAILY [facility] Last Admin: 07/09/16 10:07 Dose: 20 mg Polyethylene Glycol (Miralax (For Daily Use) -) 17 gm PO DAILY [facility] Last Admin: 07/09/16 10:08 Dose: 17 grams Senna/Docusate Sodium (Pericolace -) 2 tablet PO HS [facility] Last Admin: 07/08/16 22:11 Dose: 2 tablet Simethicone (Mylicon -) 80 mg PO QID [facility] Last Admin: 07/09/16 11:18 Dose: Not Given - Objective Vital Signs: Vital Signs Temperature 97.5 F L 07/09/16 06:00 Pulse Rate 80 07/09/16 06:00 Respiratory Rate 20 07/09/16 06:00 Blood Pressure 160/70 07/09/16 06:00 O2 Sat by Pulse Oximetry (%) 98 07/08/16 22:00 Constitutional: Yes: No Distress, Calm Eyes: Yes: Conjunctiva Clear HENT: Yes: Atraumatic Neck: Yes: Supple Cardiovascular: Yes: Regular Rate and Rhythm Respiratory: Yes: Diminished Gastrointestinal: Yes: Soft. No: Distention, Tenderness Genitourinary: No: Hematuria Musculoskeletal: No: Joint Stiffness, Joint Swelling Extremities: Yes: Amputation (L BKA). No: Cold, Cool Edema: Yes (RLE) Integumentary: Yes: Other (RLE lymphedema) Neurological: Yes: Alert, Oriented. No: WNL (functional quadriplegia bed bound chronically) Psychiatric: Yes: Alert, Oriented. No: Agitated, Suicidal Ideation Labs: CBC, BMP 07/09/16 06:17 07/09/16 06:17 INR, PTT INR 1.28 (0.82-1.09) H 07/03/16 05:45 - ....Imaging Other: Report Reviewed Assessment/Plan The patient is a 71 year old female with significant past medical history of hypertension, hyperlipidemia, diabetes, CAD, CHF, MIx2, COPD (O2 dependent 2L), and renal insufficiency who presents to the emergency department sent from wound care by Dr. Alonso for further evaluation of a left lower extremity wound. Nonhealing after ATB and HBO tx. Pt nonambulatory for years fpc NHR; DNR DNI but she agreed to have intubation if needed for general anesthesia s/p L BKA for L foot gangrene; stable h/o ARF on CRF improving, anemia, NGT in for gastroparesis; COPD respiratory failure, CHF volume overload; anemia; morbid obesity; cardio, GI, renal f/u pt tolerated po diet on IV lasix drip for ansarca; labs stable OFF antibtioics wound stump care per vascular sx; gastric DVT aspiration PFX pain meds prn prognosis guarded DC to NH when off IV lasix drip; cleared by vascular sx d/w pt and staff
[2016-07-09] MEDS: ATORVASTATIN CA 20 MG TABLET (FP) PO SCH (22:13)
[2016-07-09] MEDS: SENNOSIDES/DOCUSATE COMBO (SENNA PLUS) TABLET (UD) PO SCH (22:13)
[2016-07-09] MEDS: FUROSEMIDE INJECTION 100 MG in DEXTROSE 5%-WATER - 40 ML IVPB SCH (23:56)
[2016-07-10] MEDS: LEVOTHYROXINE NA 50 MCG TABLET (FP) PO SCH (06:17)
[2016-07-10] MEDS: METOCLOPRAMIDE HCL 10 MG TABLET (FP) PO SCH ×4 (06:17→22:14)
[2016-07-10] MEDS: INSULIN DETEMIR 100 UNITS/ML MDV SQ SCH (06:17)
[2016-07-10] MEDS: INSULIN SLIDING SCALE (NOVOLOG) 1 VIAL SQ SCH ×4 (06:18→22:12)
[2016-07-10] MEDS: ALBUTEROL SO4 0.083% IH SOL 2.5 MG/3 ML VIAL.NEB. NEB PRN (06:40)
[2016-07-10 07:30] LABS: BASOPHIL 0.8 % (0-2.0); EOSINOPHIL 3.8 % (0-4.5); MCH 29.3 pg (25.7-33.7); MCHC 32.8 g/dl (32.0-36.0); MEAN CELL VOLUME 89.4 fl (80-96); MEAN PLT VOLUME 8.9 fl (7.5-11.1); NEUTROPHILS 70.5 % (42.8-82.8); PLATELET COUNT 177 K/MM3 (134-434); RDW 16.3 % (11.6-15.6); WHITE BLOOD COUNT 7.2 K/mm3 (4.0-10.0)
[2016-07-10 07:46] LABS: CALCIUM 8.3 mg/dL (8.5-10.1); CREATININE 1.6 mg/dL (0.55-1.02); MAGNESIUM 2.1 mg/dL (1.8-2.4); PHOSPHOROUS 2.9 mg/dL (2.5-4.9)
[2016-07-10] MEDS: METOPROLOL SUCCINATE 25 MG TAB.SR.24H (FP) PO SCH (09:46)
[2016-07-10] MEDS: ASPIRIN COATED 81 MG TABLET.EC PO SCH (09:46)
[2016-07-10] MEDS: ISOSORBIDE MONONITRATE 30 MG TAB.SR.24H (FP) PO SCH (09:46)
[2016-07-10] MEDS: CYANOCOBALAMIN 1,000 MCG TABLET (FP) PO SCH (09:46)
[2016-07-10] MEDS: oxyCODONE HCL 5 MG TABLET PO PRN ×2 (09:47→14:05)
[2016-07-10] MEDS: PANTOPRAZOLE 20 MG TABLET (FP) PO SCH (09:47)
[2016-07-10] MEDS: MAG HYDROX/AL HYDROX/SIMETH 30 ML UNIT-DOSE CUP PO SCH ×2 (09:48→22:13)
[2016-07-10] MEDS: LIDOCAINE 5% TOPICAL PATCH TP SCH (09:48)
[2016-07-10] MEDS: NYSTATIN 100,000 UNIT/GM TOPICAL CREAM 15 GM TUBE TP SCH ×2 (09:49→22:14)
[2016-07-10] MEDS: HEPARIN NA (PORCINE) 5,000 UNITS/ML 1ML VIAL SQ SCH ×2 (09:50→22:13)
--- NOTE | 2016-07-10 10:55 | PN ---
Progress Note (short form) - Note Progress Note: s: no cp sob palps dizzy. s/p bka 3/8 Current Medications Generic Name Dose Route Start Last Admin Trade Name Zackq PRN Reason Stop Dose Admin Al Hydroxide/Mg Hydroxide 30 ml 07/03/16 22:00 07/10/16 09:48 Mylanta Oral Suspension - PO 30 ml BID [facility] Administration Albuterol Sulfate 1 amp 07/03/16 20:31 07/10/16 06:40 Ventolin 0.083% Nebulizer Soln - NEB 1 amp Q6H PRN Administration SHORT OF BREATH/WHEEZING Aspirin 81 mg 07/04/16 10:00 07/10/16 09:46 Ecotrin - PO 81 mg DAILY [facility] Administration Atorvastatin Calcium 20 mg 07/03/16 22:00 07/09/16 22:13 Lipitor - PO 20 mg HS [facility] Administration Cyanocobalamin 1,000 mcg 07/04/16 10:00 07/10/16 09:46 Vitamin B12 - PO 1,000 mcg DAILY [facility] Administration Epoetin Dawood 10,000 unit 07/10/16 19:00 Procrit - SQ Q7D [facility] Heparin Sodium (Porcine) 5,000 unit 07/03/16 22:00 07/10/16 09:50 Heparin - SQ 5,000 unit BID [facility] Administration Furosemide 100 mg/ Dextrose 50 mls @ 2.5 mls/hr 07/08/16 18:00 07/09/16 23:56 IVPB 2.5 mls/hr TITR [facility] Administration Protocol 5 MG/HR Insulin Aspart 1 vial 07/03/16 22:00 07/10/16 06:18 Novolog Vial Sliding Scale - SQ Not Given ACHS [facility] Protocol Insulin Detemir 10 units 07/04/16 07:00 07/10/16 06:17 Levemir Vial SQ 10 units DAILY@0700 [facility] Administration Isosorbide Mononitrate 30 mg 07/04/16 10:00 07/10/16 09:46 Imdur - PO 30 mg DAILY [facility] Administration Levothyroxine Sodium 50 mcg 07/04/16 07:00 07/10/16 06:17 Synthroid - PO 50 mcg DAILY@0700 [facility] Administration Lidocaine 1 patch 07/04/16 10:00 07/10/16 09:48 Lidoderm Patch - TP 1 patch DAILY [facility] Administration Metoclopramide HCl 10 mg 07/08/16 16:30 07/10/16 06:17 Reglan - PO 10 mg ACHS [facility] Administration Metoprolol Succinate 25 mg 07/08/16 11:15 07/10/16 09:46 Toprol Xl - PO 25 mg DAILY [facility] Administration Nystatin 1 applic 07/03/16 22:00 07/10/16 09:49 Mycostatin Cream - TP 1 applic BID [facility] Administration Oxycodone HCl 5 mg 07/03/16 20:31 07/10/16 09:47 Roxicodone - PO 5 mg Q4H PRN Administration PAIN LEVEL 6-10 Pantoprazole Sodium 20 mg 07/08/16 11:15 07/10/16 09:47 Protonix - PO 20 mg DAILY [facility] Administration Polyethylene Glycol 17 gm 07/04/16 10:00 07/09/16 10:08 Miralax (For Daily Use) - PO 17 grams DAILY [facility] Administration Senna/Docusate Sodium 2 tablet 07/03/16 22:00 07/09/16 22:13 Pericolace - PO 2 tablet HS [facility] Administration Simethicone 80 mg 07/03/16 22:00 07/09/16 22:15 Mylicon - PO 80 mg QID [facility] Administration Vital Signs Period Temp Pulse Resp BP Sys/Hagan Pulse Ox Last 24 Hr 97.8 F-98.8 F 58-76 18-20 129-158/49-78 95-96 Constitutional: Yes: No Distress, Calm, Obese Eyes: No: Sclera Icterus Cardiovascular: Yes: Regular Rate and Rhythm, S1, S2, Other (PMI displaced). No: JVD (tds habitus,) 2/6 sys murmur at apex Gallop Respiratory: Yes: diminished air movement, poor effort. No: Accessory Muscle Use Gastrointestinal: Yes: Normal Bowel Sounds (tds exam (++ obese)), Soft. No: Tenderness Extremities: No: Cold Edema: Yes indurated and 1+ dependent edema to pannus; left bka Integumentary: No: Jaundice diaphoresis Neurological: Yes: Alert, Oriented (x3) Psychiatric: No: Agitated Labs: CBC, BMP 07/10/16 05:35 07/10/16 05:35 tele: sr, occ pvcs, nsvt 9 beats Echo 07/01/2016: Mild decr EF. paradoxical septal motion with mild HK of anteroseptum. RV not seen. 1+ mr/tr. mild (although MG only 12 mmHg). Echo 06/2015: mild-mod decr EF--global; nl RV; mild LAE; mild-mod MR/TR; RVSP 30- 40; small peric effusion; + pleural eff echo 12/06/15: mild lvh. nl lv/rv, Septal motion c/w RV volume overload. Ab diastology. mild cheryl, mild-mod mr, mild as, mod-sev tr, rvsp 50, mod pericardial eff, no tamponade. pleural effusion. echo 12/11/15: focused, Nl lv. trivial pericardial eff. Pleural effusion. EKG 06/27/16: sr, nl intervals, nonspecific tw changes, no sig change prior a/p: 71 yo with h/o HFpEF, CAD s/p RI, HTN, HL, pHTN, MIRIAM, o2 dep't copd, CKD, IDDM, hypothyroid and chronic LLE cellulitis, here with non healing left foot wound/gangrene. 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 sign of incr'd filling pressures so started on lasix gtt. Cr now back to baseline. Will attempt to administrative judge her vol status with wt as when she was here over past few months her wt was as low as 270s. Currently with lasix wt is trending down so will cont same iv lasix gtt until wt plateaus or cr starts to rise again. Plan d/w renal as well. - pt with mult RFs for PE but creat prohibitive for IV contrast, and she cannot currently cooperate with V/Q; d/w'd dr daily who feels cause of her current decompensation is more likely sec to exacerbation of her chronic lung disease PSVT: -likely brief run of ATach on tele 07/01. no recurrence. CAD, h/o NSTEMI: -has previously refused stress tests. h/o NSTEMI x 2 (2012, 2014) in setting of demand (sepsis/anemia) -MATEO deferred previously due to labile creat's--no change; -cath previously deferred due to: pt preference; hi risk of vascular complications (obese habitus), hi risk of BERNARDINO, and h/o recurrent anemia, possible occult GIB -currently without anginal sx's. EKG unchanged. Con't statin, BB, asa, imdur CKD/michael: -plan as above, cr improved VTach: -17 beat run of NSVT on tele -keep K >4 and Mag >2 -changed coreg 3.125 to toprol 25 qd -bradycardia on tele earlier--was persistent so coreg dose decr'd but pt likely with hi vagal tone persistently given known obesity/hypoventilation syndrome and laying in bed sluggishly for most (all?) of this admit -monitor tele, only 9 beat run nsvt overnight anemia: -chronic, baseline runs 8s-9s; -freq acute drops/PRBCs in past; currently near baseline HTN: -controlled gastroparesis: -s/p ngt, now removed -GI following
--- NOTE | 2016-07-10 12:05 | PN ---
Progress Note (short form) - Note Progress Note: PULMONARY Denies shortness of breath or chest pain. Remains on lasix gtt. Last Vital Signs Temp Pulse Resp BP Pulse Ox 98.4 F 71 20 138/49 95 07/10/16 08:57 07/10/16 08:57 07/10/16 08:57 07/10/16 08:57 07/09/16 22:00 Intake & Output 07/07/16 07/08/16 07/09/16 07/10/16 23:59 23:59 23:59 23:59 Intake Total 624 480 130 Balance 624 480 130 Weight 302 lb 11.2 oz 287 lb 6.4 oz Gen: NAD at rest Heart: RRR Lung: decreased breath sounds at the bases Abd: soft, nontender Ext: + edema, L BKA CBC, BMP 07/10/16 05:35 07/10/16 05:35 Active Medications Al Hydroxide/Mg Hydroxide (Mylanta Oral Suspension -) 30 ml PO BID [facility] Last Admin: 07/10/16 09:48 Dose: 30 ml Albuterol Sulfate (Ventolin 0.083% Nebulizer Soln -) 1 amp NEB Q6H PRN PRN Reason: SHORT OF BREATH/WHEEZING Last Admin: 07/10/16 06:40 Dose: 1 amp Aspirin (Ecotrin -) 81 mg PO DAILY [facility] Last Admin: 07/10/16 09:46 Dose: 81 mg Atorvastatin Calcium (Lipitor -) 20 mg PO HS [facility] Last Admin: 07/09/16 22:13 Dose: 20 mg Cyanocobalamin (Vitamin B12 -) 1,000 mcg PO DAILY [facility] Last Admin: 07/10/16 09:46 Dose: 1,000 mcg Epoetin Dawood (Procrit -) 10,000 unit SQ Q7D [facility] Heparin Sodium (Porcine) (Heparin -) 5,000 unit SQ BID [facility] Last Admin: 07/10/16 09:50 Dose: 5,000 unit Furosemide 100 mg/ Dextrose 50 mls @ 2.5 mls/hr IVPB TITR [facility]; 5 MG/HR PRN Reason: Protocol Last Admin: 07/09/16 23:56 Dose: 2.5 mls/hr Insulin Aspart (Novolog Vial Sliding Scale -) 1 vial SQ ACHS [facility] PRN Reason: Protocol Last Admin: 07/10/16 06:18 Dose: Not Given Insulin Detemir (Levemir Vial) 10 units SQ DAILY@0700 [facility] Last Admin: 07/10/16 06:17 Dose: 10 units Isosorbide Mononitrate (Imdur -) 30 mg PO DAILY [facility] Last Admin: 07/10/16 09:46 Dose: 30 mg Levothyroxine Sodium (Synthroid -) 50 mcg PO DAILY@0700 [facility] Last Admin: 07/10/16 06:17 Dose: 50 mcg Lidocaine (Lidoderm Patch -) 1 patch TP DAILY [facility] Last Admin: 07/10/16 09:48 Dose: 1 patch Metoclopramide HCl (Reglan -) 10 mg PO ACHS [facility] Last Admin: 07/10/16 06:17 Dose: 10 mg Metoprolol Succinate (Toprol Xl -) 25 mg PO DAILY [facility] Last Admin: 07/10/16 09:46 Dose: 25 mg Nystatin (Mycostatin Cream -) 1 applic TP BID [facility] Last Admin: 07/10/16 09:49 Dose: 1 applic Oxycodone HCl (Roxicodone -) 5 mg PO Q4H PRN PRN Reason: PAIN LEVEL 6-10 Last Admin: 07/10/16 09:47 Dose: 5 mg Pantoprazole Sodium (Protonix -) 20 mg PO DAILY [facility] Last Admin: 07/10/16 09:47 Dose: 20 mg Polyethylene Glycol (Miralax (For Daily Use) -) 17 gm PO DAILY [facility] Last Admin: 07/09/16 10:08 Dose: 17 grams Senna/Docusate Sodium (Pericolace -) 2 tablet PO HS [facility] Last Admin: 07/09/16 22:13 Dose: 2 tablet Simethicone (Mylicon -) 80 mg PO QID [facility] Last Admin: 07/09/16 22:15 Dose: 80 mg A/P Left Foot Gangrene s/p L BKA Chronic Hypoxic and Hypercapneic Respiratory Failure Acute on Chronic Renal Failure Morbid Obesity MIRIAM/OHS Volume Overload - continue lasix gtt - monitor urine output, creatinine - O2 to keep SpO2 >88% - pain control - incentive spirometry - BiPAP at night and PRN during day - DVT prophylaxis
--- NOTE | 2016-07-10 12:20 | PN ---
Progress Note (short form) - Note Progress Note: Renal follow up for CRISTELA on CKD Pt seen and examined at the bedside no acute complaints no chest pain or sob continues to have pain and discomfort in the leg on Lasix gtt Vital Signs Temperature 98.4 F 07/10/16 08:57 Pulse Rate 71 07/10/16 08:57 Respiratory Rate 20 07/10/16 08:57 Blood Pressure 138/49 07/10/16 08:57 O2 Sat by Pulse Oximetry (%) 95 07/09/16 22:00 Intake & Output 07/07/16 07/08/16 07/09/16 07/10/16 23:59 23:59 23:59 23:59 Intake Total 624 480 130 Balance 624 480 130 Weight 302 lb 11.2 oz 287 lb 6.4 oz Gen: NAD CVS: RRR, No M/R Lungs: Dec BS throughout (anterior exam) Abd: soft, Obese, no tenderness Ext: 2+ edema extending o thighs CBC, BMP 07/10/16 05:35 07/10/16 05:35 Current Medications Al Hydroxide/Mg Hydroxide (Mylanta Oral Suspension -) 30 ml PO BID [facility] Last Admin: 07/10/16 09:48 Dose: 30 ml Albuterol Sulfate (Ventolin 0.083% Nebulizer Soln -) 1 amp NEB Q6H PRN PRN Reason: SHORT OF BREATH/WHEEZING Last Admin: 07/10/16 06:40 Dose: 1 amp Aspirin (Ecotrin -) 81 mg PO DAILY [facility] Last Admin: 07/10/16 09:46 Dose: 81 mg Atorvastatin Calcium (Lipitor -) 20 mg PO HS [facility] Last Admin: 07/09/16 22:13 Dose: 20 mg Cyanocobalamin (Vitamin B12 -) 1,000 mcg PO DAILY [facility] Last Admin: 07/10/16 09:46 Dose: 1,000 mcg Epoetin Dawood (Procrit -) 10,000 unit SQ Q7D [facility] Heparin Sodium (Porcine) (Heparin -) 5,000 unit SQ BID [facility] Last Admin: 07/10/16 09:50 Dose: 5,000 unit Furosemide 100 mg/ Dextrose 50 mls @ 2.5 mls/hr IVPB TITR JESÚS; 5 MG/HR PRN Reason: Protocol Last Admin: 07/09/16 23:56 Dose: 2.5 mls/hr Insulin Aspart (Novolog Vial Sliding Scale -) 1 vial SQ [facility] PRN Reason: Protocol Last Admin: 07/10/16 06:18 Dose: Not Given Insulin Detemir (Levemir Vial) 10 units SQ DAILY@0700 [facility] Last Admin: 07/10/16 06:17 Dose: 10 units Isosorbide Mononitrate (Imdur -) 30 mg PO DAILY [facility] Last Admin: 07/10/16 09:46 Dose: 30 mg Levothyroxine Sodium (Synthroid -) 50 mcg PO DAILY@0700 [facility] Last Admin: 07/10/16 06:17 Dose: 50 mcg Lidocaine (Lidoderm Patch -) 1 patch TP DAILY [facility] Last Admin: 07/10/16 09:48 Dose: 1 patch Metoclopramide HCl (Reglan -) 10 mg PO [facility] Last Admin: 07/10/16 06:17 Dose: 10 mg Metoprolol Succinate (Toprol Xl -) 25 mg PO DAILY [facility] Last Admin: 07/10/16 09:46 Dose: 25 mg Nystatin (Mycostatin Cream -) 1 applic TP BID [facility] Last Admin: 07/10/16 09:49 Dose: 1 applic Oxycodone HCl (Roxicodone -) 5 mg PO Q4H PRN PRN Reason: PAIN LEVEL 6-10 Last Admin: 07/10/16 09:47 Dose: 5 mg Pantoprazole Sodium (Protonix -) 20 mg PO DAILY [facility] Last Admin: 07/10/16 09:47 Dose: 20 mg Polyethylene Glycol (Miralax (For Daily Use) -) 17 gm PO DAILY [facility] Last Admin: 07/09/16 10:08 Dose: 17 grams Senna/Docusate Sodium (Pericolace -) 2 tablet PO HS [facility] Last Admin: 07/09/16 22:13 Dose: 2 tablet Simethicone (Mylicon -) 80 mg PO QID [facility] Last Admin: 07/09/16 22:15 Dose: 80 mg A/p 71 year old Woman with PMhx of CKD, CHF, Morbid Obesity, IDDM, Anemia who presented with worsening LE wounds and found to have CRISTELA with BUN/Cr of 90/2.5. #CRISTELA on CKD with Anasarca Renal function continues to improve with diuresis continue Lasix gtt at present dose trend BUN/Cr and daily weights #LE gangrene/PVD s/p left BKA pain control surgical follow up wound care Thank you Lambert Mcnamara
[2016-07-10] MEDS: SIMETHICONE 80 MG TAB.CHEW (FP) PO SCH ×4 (13:09→22:13)
[2016-07-10] MEDS: POLYETHYLENE GLYCOL 3350 119 GM BTL PO SCH (13:10)
--- NOTE | 2016-07-10 13:24 | PN ---
Progress Note, Physician Chief Complaint: feels better no new c/o afebrile; still over the dry weight on IV lasix drip - Current Medication List Current Medications: Active Medications Al Hydroxide/Mg Hydroxide (Mylanta Oral Suspension -) 30 ml PO BID [facility] Last Admin: 07/10/16 09:48 Dose: 30 ml Albuterol Sulfate (Ventolin 0.083% Nebulizer Soln -) 1 amp NEB Q6H PRN PRN Reason: SHORT OF BREATH/WHEEZING Last Admin: 07/10/16 06:40 Dose: 1 amp Aspirin (Ecotrin -) 81 mg PO DAILY [facility] Last Admin: 07/10/16 09:46 Dose: 81 mg Atorvastatin Calcium (Lipitor -) 20 mg PO HS [facility] Last Admin: 07/09/16 22:13 Dose: 20 mg Cyanocobalamin (Vitamin B12 -) 1,000 mcg PO DAILY [facility] Last Admin: 07/10/16 09:46 Dose: 1,000 mcg Epoetin Dawood (Procrit -) 10,000 unit SQ Q7D [facility] Heparin Sodium (Porcine) (Heparin -) 5,000 unit SQ BID [facility] Last Admin: 07/10/16 09:50 Dose: 5,000 unit Furosemide 100 mg/ Dextrose 50 mls @ 2.5 mls/hr IVPB TITR J[facility]; 5 MG/HR PRN Reason: Protocol Last Admin: 07/09/16 23:56 Dose: 2.5 mls/hr Insulin Aspart (Novolog Vial Sliding Scale -) 1 vial SQ [facility] PRN Reason: Protocol Last Admin: 07/10/16 06:18 Dose: Not Given Insulin Detemir (Levemir Vial) 10 units SQ DAILY@0700 [facility] Last Admin: 07/10/16 06:17 Dose: 10 units Isosorbide Mononitrate (Imdur -) 30 mg PO DAILY [facility] Last Admin: 07/10/16 09:46 Dose: 30 mg Levothyroxine Sodium (Synthroid -) 50 mcg PO DAILY@0700 [facility] Last Admin: 07/10/16 06:17 Dose: 50 mcg Lidocaine (Lidoderm Patch -) 1 patch TP DAILY [facility] Last Admin: 07/10/16 09:48 Dose: 1 patch Metoclopramide HCl (Reglan -) 10 mg PO ACHS [facility] Last Admin: 07/10/16 13:09 Dose: 10 mg Metoprolol Succinate (Toprol Xl -) 25 mg PO DAILY [facility] Last Admin: 07/10/16 09:46 Dose: 25 mg Nystatin (Mycostatin Cream -) 1 applic TP BID [facility] Last Admin: 07/10/16 09:49 Dose: 1 applic Oxycodone HCl (Roxicodone -) 5 mg PO Q4H PRN PRN Reason: PAIN LEVEL 6-10 Last Admin: 07/10/16 09:47 Dose: 5 mg Pantoprazole Sodium (Protonix -) 20 mg PO DAILY [facility] Last Admin: 07/10/16 09:47 Dose: 20 mg Polyethylene Glycol (Miralax (For Daily Use) -) 17 gm PO DAILY [facility] Last Admin: 07/10/16 13:10 Dose: 17 grams Senna/Docusate Sodium (Pericolace -) 2 tablet PO HS [facility] Last Admin: 07/09/16 22:13 Dose: 2 tablet Simethicone (Mylicon -) 80 mg PO QID [facility] Last Admin: 07/10/16 13:09 Dose: 80 mg - Objective Vital Signs: Vital Signs Temperature 98.4 F 07/10/16 08:57 Pulse Rate 71 07/10/16 08:57 Respiratory Rate 20 07/10/16 08:57 Blood Pressure 138/49 07/10/16 08:57 O2 Sat by Pulse Oximetry (%) 95 07/09/16 22:00 Constitutional: Yes: No Distress, Calm Eyes: Yes: Conjunctiva Clear HENT: Yes: Atraumatic Neck: Yes: Supple Cardiovascular: Yes: Regular Rate and Rhythm Respiratory: Yes: Diminished Gastrointestinal: Yes: Soft. No: Distention, Tenderness Genitourinary: No: CVA Tenderness - Left, CVA Tenderness - Right Musculoskeletal: No: Joint Stiffness, Joint Swelling Extremities: No: Cold, Cool Edema: No Peripheral Pulses WNL: Yes Integumentary: No: Rash, Venous Stasis Changes Neurological: Yes: WNL, Alert, Oriented ...Motor Strength: WNL Psychiatric: Yes: WNL, Alert, Oriented. No: Agitated Labs: CBC, BMP 07/10/16 05:35 07/10/16 05:35 INR, PTT INR 1.28 (0.82-1.09) H 07/03/16 05:45 - ....Imaging Other: Report Reviewed Assessment/Plan The patient is a 71 year old female with significant past medical history of hypertension, hyperlipidemia, diabetes, CAD, CHF, MIx2, COPD (O2 dependent 2L), and renal insufficiency who presents to the emergency department sent from wound care by Dr. Alonso for further evaluation of a left lower extremity wound. Nonhealing after ATB and HBO tx. 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
[2016-07-10] MEDS ORDERED: EPOETIN ALFA 10,000 UNIT/1 ML VIAL SQ SCH (19:00)
[2016-07-10] MEDS: ATORVASTATIN CA 20 MG TABLET (FP) PO SCH (22:13)
[2016-07-10] MEDS: SENNOSIDES/DOCUSATE COMBO (SENNA PLUS) TABLET (UD) PO SCH (22:13)
[2016-07-10] MEDS ORDERED: FUROSEMIDE 100 MG/10 ML INJECTABLE VIAL ONE (22:22)
[2016-07-10] MEDS: FUROSEMIDE INJECTION 100 MG in DEXTROSE 5%-WATER - 40 ML IVPB SCH (22:23)
[2016-07-11] MEDS: INSULIN DETEMIR 100 UNITS/ML MDV SQ SCH (06:14)
[2016-07-11] MEDS: INSULIN SLIDING SCALE (NOVOLOG) 1 VIAL SQ SCH ×4 (06:14→21:36)
[2016-07-11] MEDS: LEVOTHYROXINE NA 50 MCG TABLET (FP) PO SCH (06:16)
[2016-07-11] MEDS: METOCLOPRAMIDE HCL 10 MG TABLET (FP) PO SCH ×4 (06:16→21:24)
[2016-07-11] MEDS: oxyCODONE HCL 5 MG TABLET PO PRN ×3 (07:43→21:24)
[2016-07-11 08:24] LABS: CALCIUM 8.3 mg/dL (8.5-10.1); CREATININE 1.4 mg/dL (0.55-1.02); MAGNESIUM 2.1 mg/dL (1.8-2.4); PHOSPHOROUS 2.7 mg/dL (2.5-4.9)
--- NOTE | 2016-07-11 09:53 | PN ---
Progress Note, Physician Chief Complaint: in bed NAD VSS afebrile; said she "feels too full" ate too much yesterday, advised small meals - Current Medication List Current Medications: Active Medications Al Hydroxide/Mg Hydroxide (Mylanta Oral Suspension -) 30 ml PO BID [facility] Last Admin: 07/10/16 22:13 Dose: 30 ml Albuterol Sulfate (Ventolin 0.083% Nebulizer Soln -) 1 amp NEB Q6H PRN PRN Reason: SHORT OF BREATH/WHEEZING Last Admin: 07/10/16 06:40 Dose: 1 amp Aspirin (Ecotrin -) 81 mg PO DAILY [facility] Last Admin: 07/10/16 09:46 Dose: 81 mg Atorvastatin Calcium (Lipitor -) 20 mg PO HS [facility] Last Admin: 07/10/16 22:13 Dose: 20 mg Cyanocobalamin (Vitamin B12 -) 1,000 mcg PO DAILY [facility] Last Admin: 07/10/16 09:46 Dose: 1,000 mcg Epoetin Dawood (Procrit -) 10,000 unit SQ Q7D [facility] Last Admin: 07/10/16 18:45 Dose: 10,000 unit Heparin Sodium (Porcine) (Heparin -) 5,000 unit SQ BID [facility] Last Admin: 07/10/16 22:13 Dose: 5,000 unit Furosemide 100 mg/ Dextrose 50 mls @ 2.5 mls/hr IVPB TITR J[facility]; 5 MG/HR PRN Reason: Protocol Last Admin: 07/10/16 22:23 Dose: 2.5 mls/hr Insulin Aspart (Novolog Vial Sliding Scale -) 1 vial SQ [facility] PRN Reason: Protocol Last Admin: 07/11/16 06:14 Dose: Not Given Insulin Detemir (Levemir Vial) 10 units SQ DAILY@0700 [facility] Last Admin: 07/11/16 06:14 Dose: 10 units Isosorbide Mononitrate (Imdur -) 30 mg PO DAILY [facility] Last Admin: 07/10/16 09:46 Dose: 30 mg Levothyroxine Sodium (Synthroid -) 50 mcg PO DAILY@0700 [facility] Last Admin: 07/11/16 06:16 Dose: 50 mcg Lidocaine (Lidoderm Patch -) 1 patch TP DAILY [facility] Last Admin: 07/10/16 09:48 Dose: 1 patch Metoclopramide HCl (Reglan -) [address] [facility] Last Admin: 07/11/16 06:16 Dose: 10 mg Metoprolol Succinate (Toprol Xl -) 25 mg PO DAILY [facility] Last Admin: 07/10/16 09:46 Dose: 25 mg Nystatin (Mycostatin Cream -) 1 applic TP BID [facility] Last Admin: 07/10/16 22:14 Dose: 1 applic Oxycodone HCl (Roxicodone -) 5 mg PO Q4H PRN PRN Reason: PAIN LEVEL 6-10 Last Admin: 07/11/16 07:43 Dose: 5 mg Pantoprazole Sodium (Protonix -) 20 mg PO DAILY [facility] Last Admin: 07/10/16 09:47 Dose: 20 mg Polyethylene Glycol (Miralax (For Daily Use) -) 17 gm PO DAILY [facility] Last Admin: 07/10/16 13:10 Dose: 17 grams Senna/Docusate Sodium (Pericolace -) 2 tablet PO HS [facility] Last Admin: 07/10/16 22:13 Dose: 2 tablet Simethicone (Mylicon -) 80 mg PO QID [facility] Last Admin: 07/10/16 22:13 Dose: 80 mg - Objective Vital Signs: Vital Signs Temperature 98.1 F 07/11/16 05:31 Pulse Rate 84 07/11/16 05:31 Respiratory Rate 22 07/11/16 05:31 Blood Pressure 149/64 07/11/16 05:31 O2 Sat by Pulse Oximetry (%) 97 07/11/16 03:41 Constitutional: Yes: No Distress Eyes: Yes: Conjunctiva Clear HENT: Yes: Atraumatic Neck: Yes: Supple Cardiovascular: Yes: Regular Rate and Rhythm Respiratory: Yes: Diminished Gastrointestinal: Yes: Soft. No: Distention, Tenderness Musculoskeletal: No: Joint Stiffness, Joint Swelling Extremities: No: Cold, Cool Edema: Yes (LLE) Peripheral Pulses WNL: Yes (LLE) Integumentary: Yes: Venous Stasis Changes Neurological: Yes: Alert, Oriented. No: WNL (functional quadriplegia bed bound) Psychiatric: Yes: WNL, Alert, Oriented. No: Agitated, Suicidal Ideation Labs: CBC, BMP 07/10/16 05:35 07/11/16 05:35 INR, PTT INR 1.28 (0.82-1.09) H 07/03/16 05:45 - ....Imaging Other: Report Reviewed Assessment/Plan The patient is a 71 year old female with significant past medical history of hypertension, hyperlipidemia, diabetes, CAD, CHF, MIx2, COPD (O2 dependent 2L), and renal insufficiency who presents to the emergency department sent from wound care by Dr. Alonso for further evaluation of a left lower extremity wound. Nonhealing after ATB and HBO tx. 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
[2016-07-11] MEDS: METOPROLOL SUCCINATE 25 MG TAB.SR.24H (FP) PO SCH (10:32)
[2016-07-11] MEDS: CYANOCOBALAMIN 1,000 MCG TABLET (FP) PO SCH (10:32)
[2016-07-11] MEDS: ISOSORBIDE MONONITRATE 30 MG TAB.SR.24H (FP) PO SCH (10:32)
[2016-07-11] MEDS: MAG HYDROX/AL HYDROX/SIMETH 30 ML UNIT-DOSE CUP PO SCH ×2 (10:32→21:24)
[2016-07-11] MEDS: ASPIRIN COATED 81 MG TABLET.EC PO SCH (10:32)
[2016-07-11] MEDS: PANTOPRAZOLE 20 MG TABLET (FP) PO SCH (10:32)
[2016-07-11] MEDS: HEPARIN NA (PORCINE) 5,000 UNITS/ML 1ML VIAL SQ SCH ×2 (10:33→21:23)
[2016-07-11] MEDS: SIMETHICONE 80 MG TAB.CHEW (FP) PO SCH ×4 (10:33→21:24)
[2016-07-11] MEDS: LIDOCAINE 5% TOPICAL PATCH TP SCH (10:34)
[2016-07-11] MEDS: POLYETHYLENE GLYCOL 3350 119 GM BTL PO SCH (10:51)
[2016-07-11] MEDS: NYSTATIN 100,000 UNIT/GM TOPICAL CREAM 15 GM TUBE TP SCH ×2 (10:51→21:24)
--- NOTE | 2016-07-11 11:02 | PN ---
Progress Note (short form) - Note Progress Note: s: no cp sob palps dizzy. s/p bka 3/8 Current Medications Generic Name Dose Route Start Last Admin Trade Name Cheryle PRN Reason Stop Dose Admin Al Hydroxide/Mg Hydroxide 30 ml 07/03/16 22:00 07/11/16 10:32 Mylanta Oral Suspension - PO 30 ml BID [facility]S Administration Albuterol Sulfate 1 amp 07/03/16 20:31 07/10/16 06:40 Ventolin 0.083% Nebulizer Soln - NEB 1 amp Q6H PRN Administration SHORT OF BREATH/WHEEZING Aspirin 81 mg 07/04/16 10:00 07/11/16 10:32 Ecotrin - PO 81 mg DAILY [facility] Administration Atorvastatin Calcium 20 mg 07/03/16 22:00 07/10/16 22:13 Lipitor - PO 20 mg HS [facility] Administration Cyanocobalamin 1,000 mcg 07/04/16 10:00 07/11/16 10:32 Vitamin B12 - PO 1,000 mcg DAILY [facility] Administration Epoetin Dawood 10,000 unit 07/10/16 19:00 07/10/16 18:45 Procrit - SQ 10,000 unit Q7D [facility] Administration Heparin Sodium (Porcine) 5,000 unit 07/03/16 22:00 07/11/16 10:33 Heparin - SQ 5,000 unit BID [facility] Administration Furosemide 100 mg/ Dextrose 50 mls @ 2.5 mls/hr 07/08/16 18:00 07/10/16 22:23 IVPB 2.5 mls/hr TITR [facility]ES[facility] Administration Protocol 5 MG/HR Insulin Aspart 1 vial 07/03/16 22:00 07/11/16 06:14 Novolog Vial Sliding Scale - SQ Not Given ACHS [facility] Protocol Insulin Detemir 10 units 07/04/16 07:00 07/11/16 06:14 Levemir Vial SQ 10 units DAILY@0700 [facility] Administration Isosorbide Mononitrate 30 mg 07/04/16 10:00 07/11/16 10:32 Imdur - PO 30 mg DAILY [facility] Administration Levothyroxine Sodium 50 mcg 07/04/16 07:00 07/11/16 06:16 Synthroid - PO 50 mcg DAILY@0700 [facility] Administration Lidocaine 1 patch 07/04/16 10:00 07/11/16 10:34 Lidoderm Patch - TP 1 patch DAILY [facility] Administration Metoclopramide HCl 10 mg 07/08/16 16:30 07/11/16 06:16 Reglan - PO 10 mg ACHS [facility] Administration Metoprolol Succinate 25 mg 07/08/16 11:15 07/11/16 10:32 Toprol Xl - PO 25 mg DAILY [facility] Administration Nystatin 1 applic 07/03/16 22:00 07/11/16 10:51 Mycostatin Cream - TP 1 applic BID [facility] Administration Oxycodone HCl 5 mg 07/03/16 20:31 07/11/16 07:43 Roxicodone - PO 5 mg Q4H PRN Administration PAIN LEVEL 6-10 Pantoprazole Sodium 20 mg 07/08/16 11:15 07/11/16 10:32 Protonix - PO 20 mg DAILY [facility] Administration Polyethylene Glycol 17 gm 07/04/16 10:00 07/11/16 10:51 Miralax (For Daily Use) - PO 17 grams DAILY [facility] Administration Senna/Docusate Sodium 2 tablet 07/03/16 22:00 07/10/16 22:13 Pericolace - PO 2 tablet HS [facility] Administration Simethicone 80 mg 07/03/16 22:00 07/11/16 10:33 Mylicon - PO 80 mg QID [facility] Administration Vital Signs Period Temp Pulse Resp BP Sys/Hagan Pulse Ox Last 24 Hr 98.0 F-98.8 F 72-86 20-22 128-149/55-73 97-100 Constitutional: Yes: No Distress, Calm, Obese Eyes: No: Sclera Icterus Cardiovascular: Yes: Regular Rate and Rhythm, S1, S2, Other (PMI displaced). No: JVD (tds habitus,) 2/6 sys murmur at apex Gallop Respiratory: Yes: diminished air movement, poor effort. No: Accessory Muscle Use Gastrointestinal: Yes: Normal Bowel Sounds (tds exam (++ obese)), Soft. No: Tenderness Extremities: No: Cold Edema: Yes indurated and 1+ dependent edema to pannus; left bka Integumentary: No: Jaundice diaphoresis Neurological: Yes: Alert, Oriented (x3) Psychiatric: No: Agitated Labs: CBC, BMP 07/10/16 05:35 07/11/16 05:35 tele: sr, occ pvcs, no VT Echo 07/01/2016: Mild decr EF. paradoxical septal motion with mild HK of anteroseptum. RV not seen. 1+ mr/tr. mild (although MG only 12 mmHg). Echo 06/2015: mild-mod decr EF--global; nl RV; mild LAE; mild-mod MR/TR; RVSP 30- 40; small peric effusion; + pleural eff echo 12/06/15: mild lvh. nl lv/rv, Septal motion c/w RV volume overload. Ab diastology. mild cheryl, mild-mod mr, mild as, mod-sev tr, rvsp 50, mod pericardial eff, no tamponade. pleural effusion. echo 12/11/15: focused, Nl lv. trivial pericardial eff. Pleural effusion. EKG 06/27/16: sr, nl intervals, nonspecific tw changes, no sig change prior a/p: 71 yo with h/o HFpEF, CAD s/p CA, HTN, HL, pHTN, MIRIAM, o2 dep't copd, CKD, IDDM, hypothyroid and chronic LLE cellulitis, here with non healing left foot wound/gangrene. chronic foot wound, gangrene, now s/p bka 07/03/16: -vascular, ID following chronic HFpEF/pulm HTN/venous ins'y/acute on chronic hypoxic and hypercapneic resp failure: - pt with volume overload during mult prior admits here--vol status is always [id number] to assess given morbidly obese neck hiding JVD, chronic venous ins'y/lymphedema of legs, and chronically very abnormal CXR markings due to overlying soft tissue - suspect chronic RV failure syndrome clinically, with evidence of this reported intermittently on serial echoes here over the years - cr was above baseline, possible due to infection so had been holding diuretics but then had long NSVT on tele ? sign of incr'd filling pressures so started on lasix gtt. Cr now back to baseline. Will attempt to die polisher her vol status with wt as when she was here over past few months her wt was as low as 270s. Currently again today with lasix gtt her wt is trending down ad cr improving so will cont same iv lasix gtt until wt plateaus or cr starts to rise again. - pt with mult RFs for PE but creat prohibitive for IV contrast, and she cannot currently cooperate with V/Q; d/w'd dr daily who feels cause of her current decompensation is more likely sec to exacerbation of her chronic lung disease PSVT: -likely brief run of ATach on tele 07/01. no recurrence. CAD, h/o NSTEMI: -has previously refused stress tests. h/o NSTEMI x 2 (2012, 2014) in setting of demand (sepsis/anemia) -MATEO deferred previously due to labile creat's--no change; -cath previously deferred due to: pt preference; hi risk of vascular complications (obese habitus), hi risk of BERNARDINO, and h/o recurrent anemia, possible occult GIB -currently without anginal sx's. EKG unchanged. Con't statin, BB, asa, imdur CKD/michael: -plan as above, cr improved VTach: -17 beat run of NSVT on tele -keep K >4 and Mag >2 -changed coreg 3.125 to toprol 25 qd -bradycardia on tele earlier--was persistent so coreg dose decr'd but pt likely with hi vagal tone persistently given known obesity/hypoventilation syndrome and laying in bed sluggishly for most (all?) of this admit -monitor tele, no sig vt overnight anemia: -chronic, baseline runs 8s-9s; -freq acute drops/PRBCs in past; currently near baseline HTN: -controlled gastroparesis: -s/p ngt, now removed -GI following
--- NOTE | 2016-07-11 11:43 | PN ---
Progress Note (short form) - Note Progress Note: Renal follow up for CRISTELA on CKD Pt seen and examined at the bedside no acute complaints no sob or chest pain has some Nausea yesterday after dinner no vomiting Vital Signs Temperature 98.1 F 07/11/16 05:31 Pulse Rate 84 07/11/16 05:31 Respiratory Rate 22 07/11/16 05:31 Blood Pressure 149/64 07/11/16 05:31 O2 Sat by Pulse Oximetry (%) 97 07/11/16 03:41 Intake & Output 07/08/16 07/09/16 07/10/16 07/11/16 23:59 23:59 23:59 23:59 Intake Total 624 480 160 230 Balance 624 480 160 230 Weight 302 lb 11.2 oz 287 lb 6.4 oz 285 lb 3.2 oz Gen: NAD CVS: RRR, No M/R Lungs: Dec BS throughout (anterior exam) Abd: soft, Obese, no tenderness Ext: 2+ edema extending to thighs CBC, BMP 07/10/16 05:35 07/11/16 05:35 Current Medications Al Hydroxide/Mg Hydroxide (Mylanta Oral Suspension -) 30 ml PO BID [facility] Last Admin: 07/11/16 10:32 Dose: 30 ml Albuterol Sulfate (Ventolin 0.083% Nebulizer Soln -) 1 amp NEB Q6H PRN PRN Reason: SHORT OF BREATH/WHEEZING Last Admin: 07/10/16 06:40 Dose: 1 amp Aspirin (Ecotrin -) 81 mg PO DAILY [facility] Last Admin: 07/11/16 10:32 Dose: 81 mg Atorvastatin Calcium (Lipitor -) 20 mg PO HS [facility] Last Admin: 07/10/16 22:13 Dose: 20 mg Cyanocobalamin (Vitamin B12 -) 1,000 mcg PO DAILY [facility] Last Admin: 07/11/16 10:32 Dose: 1,000 mcg Epoetin Dawood (Procrit -) 10,000 unit SQ Q7D [facility] Last Admin: 07/10/16 18:45 Dose: 10,000 unit Heparin Sodium (Porcine) (Heparin -) 5,000 unit SQ BID [facility] Last Admin: 07/11/16 10:33 Dose: 5,000 unit Furosemide 100 mg/ Dextrose 50 mls @ 2.5 mls/hr IVPB TITR JESÚS; 5 MG/HR PRN Reason: Protocol Last Admin: 07/10/16 22:23 Dose: 2.5 mls/hr Insulin Aspart (Novolog Vial Sliding Scale -) 1 vial SQ [facility] PRN Reason: Protocol Last Admin: 07/11/16 06:14 Dose: Not Given Insulin Detemir (Levemir Vial) 10 units SQ DAILY@0700 [facility] Last Admin: 07/11/16 06:14 Dose: 10 units Isosorbide Mononitrate (Imdur -) 30 mg PO DAILY [facility] Last Admin: 07/11/16 10:32 Dose: 30 mg Levothyroxine Sodium (Synthroid -) 50 mcg PO DAILY@0700 [facility] Last Admin: 07/11/16 06:16 Dose: 50 mcg Lidocaine (Lidoderm Patch -) 1 patch TP DAILY [facility] Last Admin: 07/11/16 10:34 Dose: 1 patch Metoclopramide HCl (Reglan -) 10 mg PO ACHS [facility] Last Admin: 07/11/16 06:16 Dose: 10 mg Metoprolol Succinate (Toprol Xl -) 25 mg PO DAILY [facility] Last Admin: 07/11/16 10:32 Dose: 25 mg Nystatin (Mycostatin Cream -) 1 applic TP BID [facility] Last Admin: 07/11/16 10:51 Dose: 1 applic Oxycodone HCl (Roxicodone -) 5 mg PO Q4H PRN PRN Reason: PAIN LEVEL 6-10 Last Admin: 07/11/16 07:43 Dose: 5 mg Pantoprazole Sodium (Protonix -) 20 mg PO DAILY [facility] Last Admin: 07/11/16 10:32 Dose: 20 mg Polyethylene Glycol (Miralax (For Daily Use) -) 17 gm PO DAILY [facility] Last Admin: 07/11/16 10:51 Dose: 17 grams Senna/Docusate Sodium (Pericolace -) 2 tablet PO HS [facility] Last Admin: 07/10/16 22:13 Dose: 2 tablet Simethicone (Mylicon -) 80 mg PO QID [facility] Last Admin: 07/11/16 10:33 Dose: 80 mg A/p 71 year old Woman with PMhx of CKD, CHF, Morbid Obesity, IDDM, Anemia who presented with worsening LE wounds and found to have CRISTELA with BUN/Cr of 90/2.5. #CRISTELA on CKD with Anasarca Renal function improving pt with good urine output weights improving continue diuretics at present dose trend BUN/Cr, if worsens will need to stop IV diuretics and transition to PO #LE gangrene/PVD s/p left BKA pain control surgical follow up wound care Thank you Lambert Mcnamara
--- NOTE | 2016-07-11 13:39 | PN ---
Progress Note (short form) - Note Progress Note: PULMONARY Denies shortness of breath or chest pain. Lasix gtt restarted Last Vital Signs Temp Pulse Resp BP Pulse Ox 98 F 87 20 158/64 99 07/11/16 10:00 07/11/16 11:53 07/11/16 10:00 07/11/16 10:00 07/11/16 11:53 Gen: NAD at rest Heart: RRR Lung: decreased breath sounds at the bases Abd: soft, nontender Ext: + edema, L BKA CBC, BMP 07/10/16 05:35 07/11/16 05:35 Active Medications Al Hydroxide/Mg Hydroxide (Mylanta Oral Suspension -) 30 ml PO BID [facility] Last Admin: 07/11/16 10:32 Dose: 30 ml Albuterol Sulfate (Ventolin 0.083% Nebulizer Soln -) 1 amp NEB Q6H PRN PRN Reason: SHORT OF BREATH/WHEEZING Last Admin: 07/10/16 06:40 Dose: 1 amp Aspirin (Ecotrin -) 81 mg PO DAILY [facility] Last Admin: 07/11/16 10:32 Dose: 81 mg Atorvastatin Calcium (Lipitor -) 20 mg PO HS [facility] Last Admin: 07/10/16 22:13 Dose: 20 mg Cyanocobalamin (Vitamin B12 -) 1,000 mcg PO DAILY [facility] Last Admin: 07/11/16 10:32 Dose: 1,000 mcg Epoetin Dawood (Procrit -) 10,000 unit SQ Q7D [facility] Last Admin: 07/10/16 18:45 Dose: 10,000 unit Heparin Sodium (Porcine) (Heparin -) 5,000 unit SQ BID [facility] Last Admin: 07/11/16 10:33 Dose: 5,000 unit Furosemide 100 mg/ Dextrose 50 mls @ 2.5 mls/hr IVPB TITR JESÚS; 5 MG/HR PRN Reason: Protocol Last Admin: 07/10/16 22:23 Dose: 2.5 mls/hr Insulin Aspart (Novolog Vial Sliding Scale -) 1 vial SQ ACHS JESÚS PRN Reason: Protocol Last Admin: 07/11/16 11:46 Dose: Not Given Insulin Detemir (Levemir Vial) 10 units SQ DAILY@0700 [facility] Last Admin: 07/11/16 06:14 Dose: 10 units Isosorbide Mononitrate (Imdur -) 30 mg PO DAILY [facility] Last Admin: 07/11/16 10:32 Dose: 30 mg Levothyroxine Sodium (Synthroid -) 50 mcg PO DAILY@0700 [facility] Last Admin: 07/11/16 06:16 Dose: 50 mcg Lidocaine (Lidoderm Patch -) 1 patch TP DAILY [facility] Last Admin: 07/11/16 10:34 Dose: 1 patch Metoclopramide HCl (Reglan -) 10 mg PO ACHS [facility] Last Admin: 07/11/16 06:16 Dose: 10 mg Metoprolol Succinate (Toprol Xl -) 25 mg PO DAILY [facility] Last Admin: 07/11/16 10:32 Dose: 25 mg Nystatin (Mycostatin Cream -) 1 applic TP BID [facility] Last Admin: 07/11/16 10:51 Dose: 1 applic Oxycodone HCl (Roxicodone -) 5 mg PO Q4H PRN PRN Reason: PAIN LEVEL 6-10 Last Admin: 07/11/16 07:43 Dose: 5 mg Pantoprazole Sodium (Protonix -) 20 mg PO DAILY [facility] Last Admin: 07/11/16 10:32 Dose: 20 mg Polyethylene Glycol (Miralax (For Daily Use) -) 17 gm PO DAILY [facility] Last Admin: 07/11/16 10:51 Dose: 17 grams Senna/Docusate Sodium (Pericolace -) 2 tablet PO HS [facility] Last Admin: 07/10/16 22:13 Dose: 2 tablet Simethicone (Mylicon -) 80 mg PO QID [facility] Last Admin: 07/11/16 10:33 Dose: 80 mg A/P Left Foot Gangrene s/p L BKA Chronic Hypoxic and Hypercapneic Respiratory Failure Acute on Chronic Renal Failure Morbid Obesity MIRIAM/OHS Volume Overload - continue lasix gtt - monitor urine output, creatinine - O2 to keep SpO2 >88% - pain control - incentive spirometry - BiPAP at night and PRN during day - DVT prophylaxis
--- NOTE | 2016-07-11 13:59 | PN ---
Progress Note (short form) - Note Progress Note: PT without any complaints. Vital Signs Period Temp Pulse Resp BP Sys/Hagan Pulse Ox Last 24 Hr 98 F-98.8 F 71-87 20-22 128-158/49-73 97-100 PE; LLE: dressing changed. staple line c/d/i with drainage or erythema. Area of blistering above incision over the tibia. No erythema xeroform, 4x4 gauze/kerlix reapplied CBC, BMP 07/10/16 05:35 07/11/16 05:35 A/P: 71 yo female s/p left BKA POD#8 continue local wound care daily D/w Dr. Alonso
[2016-07-11] MEDS: ALBUTEROL SO4 0.083% IH SOL 2.5 MG/3 ML VIAL.NEB. NEB PRN (15:11)
[2016-07-11] MEDS ORDERED: PT OWN MED DRAWER 7, Y5N ONE (21:00)
[2016-07-11] MEDS: ATORVASTATIN CA 20 MG TABLET (FP) PO SCH (21:24)
[2016-07-11] MEDS: SENNOSIDES/DOCUSATE COMBO (SENNA PLUS) TABLET (UD) PO SCH (21:24)
[2016-07-11] MEDS: FUROSEMIDE INJECTION 100 MG in DEXTROSE 5%-WATER - 40 ML IVPB SCH (22:39)
[2016-07-12] MEDS: INSULIN SLIDING SCALE (NOVOLOG) 1 VIAL SQ SCH ×4 (06:11→21:20)
[2016-07-12] MEDS: LEVOTHYROXINE NA 50 MCG TABLET (FP) PO SCH (06:15)
[2016-07-12] MEDS: INSULIN DETEMIR 100 UNITS/ML MDV SQ SCH (06:18)
[2016-07-12] MEDS: METOCLOPRAMIDE HCL 10 MG TABLET (FP) PO SCH ×4 (06:19→21:19)
[2016-07-12] MEDS: oxyCODONE HCL 5 MG TABLET PO PRN ×4 (08:07→20:30)
[2016-07-12 09:14] LABS: CALCIUM 8.6 mg/dL (8.5-10.1); CREATININE 1.3 mg/dL (0.55-1.02); MAGNESIUM 2.1 mg/dL (1.8-2.4); PHOSPHOROUS 2.5 mg/dL (2.5-4.9)
[2016-07-12] MEDS: MAG HYDROX/AL HYDROX/SIMETH 30 ML UNIT-DOSE CUP PO SCH ×2 (10:13→21:18)
[2016-07-12] MEDS: ISOSORBIDE MONONITRATE 30 MG TAB.SR.24H (FP) PO SCH (10:13)
[2016-07-12] MEDS: METOPROLOL SUCCINATE 25 MG TAB.SR.24H (FP) PO SCH (10:13)
[2016-07-12] MEDS: PANTOPRAZOLE 20 MG TABLET (FP) PO SCH (10:13)
[2016-07-12] MEDS: SIMETHICONE 80 MG TAB.CHEW (FP) PO SCH ×4 (10:13→21:19)
[2016-07-12] MEDS: CYANOCOBALAMIN 1,000 MCG TABLET (FP) PO SCH (10:14)
[2016-07-12] MEDS: ASPIRIN COATED 81 MG TABLET.EC PO SCH (10:14)
[2016-07-12] MEDS: LIDOCAINE 5% TOPICAL PATCH TP SCH (10:14)
[2016-07-12] MEDS: HEPARIN NA (PORCINE) 5,000 UNITS/ML 1ML VIAL SQ SCH ×2 (10:15→21:19)
[2016-07-12] MEDS: POLYETHYLENE GLYCOL 3350 119 GM BTL PO SCH (10:15)
[2016-07-12] MEDS: NYSTATIN 100,000 UNIT/GM TOPICAL CREAM 15 GM TUBE TP SCH ×2 (10:16→21:19)
--- NOTE | 2016-07-12 10:55 | PN ---
Progress Note, Physician Chief Complaint: feels better no CP/SOB - Current Medication List Current Medications: Active Medications Al Hydroxide/Mg Hydroxide (Mylanta Oral Suspension -) 30 ml PO BID [facility] Last Admin: 07/12/16 10:13 Dose: 30 ml Albuterol Sulfate (Ventolin 0.083% Nebulizer Soln -) 1 amp NEB Q6H PRN PRN Reason: SHORT OF BREATH/WHEEZING Last Admin: 07/11/16 15:11 Dose: 1 amp Aspirin (Ecotrin -) 81 mg PO DAILY [facility] Last Admin: 07/12/16 10:14 Dose: 81 mg Atorvastatin Calcium (Lipitor -) 20 mg PO HS [facility] Last Admin: 07/11/16 21:24 Dose: 20 mg Cyanocobalamin (Vitamin B12 -) 1,000 mcg PO DAILY [facility] Last Admin: 07/12/16 10:14 Dose: 1,000 mcg Epoetin Dawood (Procrit -) 10,000 unit SQ Q7D [facility] Last Admin: 07/10/16 18:45 Dose: 10,000 unit Heparin Sodium (Porcine) (Heparin -) 5,000 unit SQ BID [facility] Last Admin: 07/12/16 10:15 Dose: 5,000 unit Furosemide 100 mg/ Dextrose 50 mls @ 2.5 mls/hr IVPB TITR JESÚS; 5 MG/HR PRN Reason: Protocol Last Admin: 07/11/16 22:39 Dose: 2.5 mls/hr Insulin Aspart (Novolog Vial Sliding Scale -) 1 vial SQ [facility] PRN Reason: Protocol Last Admin: 07/12/16 06:11 Dose: Not Given Insulin Detemir (Levemir Vial) 10 units SQ DAILY@0700 [facility] Last Admin: 07/12/16 06:18 Dose: 10 units Isosorbide Mononitrate (Imdur -) 30 mg PO DAILY [facility] Last Admin: 07/12/16 10:13 Dose: 30 mg Levothyroxine Sodium (Synthroid -) 50 mcg PO DAILY@0700 [facility] Last Admin: 07/12/16 06:15 Dose: 50 mcg Lidocaine (Lidoderm Patch -) 1 patch TP DAILY [facility] Last Admin: 07/12/16 10:14 Dose: 1 patch Metoclopramide HCl (Reglan -) 10 mg PO ACHS [facility] Last Admin: 07/12/16 10:13 Dose: 10 mg Metoprolol Succinate (Toprol Xl -) 25 mg PO DAILY [facility] Last Admin: 07/12/16 10:13 Dose: 25 mg Nystatin (Mycostatin Cream -) 1 applic TP BID [facility] Last Admin: 07/12/16 10:16 Dose: 1 applic Oxycodone HCl (Roxicodone -) 5 mg PO Q4H PRN PRN Reason: PAIN LEVEL 6-10 Last Admin: 07/12/16 08:07 Dose: 5 mg Pantoprazole Sodium (Protonix -) 20 mg PO DAILY [facility] Last Admin: 07/12/16 10:13 Dose: 20 mg Polyethylene Glycol (Miralax (For Daily Use) -) 17 gm PO DAILY [facility] Last Admin: 07/12/16 10:15 Dose: 17 grams Senna/Docusate Sodium (Pericolace -) 2 tablet PO HS [facility] Last Admin: 07/11/16 21:24 Dose: 2 tablet Simethicone (Mylicon -) 80 mg PO QID [facility] Last Admin: 07/12/16 10:13 Dose: 80 mg - Objective Vital Signs: Vital Signs Temperature 97.1 F L 07/12/16 02:00 Pulse Rate 79 07/12/16 02:00 Respiratory Rate 20 07/12/16 02:00 Blood Pressure 153/67 07/12/16 02:00 O2 Sat by Pulse Oximetry (%) 98 07/12/16 02:35 Constitutional: Yes: No Distress Eyes: Yes: Conjunctiva Clear HENT: Yes: Atraumatic Neck: Yes: Supple Cardiovascular: Yes: Regular Rate and Rhythm Respiratory: Yes: CTA Bilaterally Gastrointestinal: Yes: Soft. No: Distention, Tenderness Genitourinary: No: Hematuria Musculoskeletal: No: Joint Stiffness, Joint Swelling Extremities: No: Cold, Cool Edema: Yes (RLE) Integumentary: Yes: Venous Stasis Changes. No: Rash Neurological: Yes: Alert, Oriented Psychiatric: Yes: Alert, Oriented. No: Agitated, Suicidal Ideation Labs: CBC, BMP 07/10/16 05:35 07/12/16 05:50 INR, PTT INR 1.28 (0.82-1.09) H 07/03/16 05:45 - ....Imaging Other: Report Reviewed Assessment/Plan The patient is a 71 year old female with significant past medical history of hypertension, hyperlipidemia, diabetes, CAD, CHF, MIx2, COPD (O2 dependent 2L), and renal insufficiency who presents to the emergency department sent from wound care by Dr. Alonso for further evaluation of a left lower extremity wound. Nonhealing after ATB and HBO tx. 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
--- NOTE | 2016-07-12 11:05 | PN ---
Progress Note (short form) - Note Progress Note: s: no cp sob palps dizzy. s/p bka 3/8 Current Medications Generic Name Dose Route Start Last Admin Trade Name Cheryle PRN Reason Stop Dose Admin Al Hydroxide/Mg Hydroxide 30 ml 07/03/16 22:00 07/12/16 10:13 Mylanta Oral Suspension - PO 30 ml BID JESÚS Administration Albuterol Sulfate 1 amp 07/03/16 20:31 07/11/16 15:11 Ventolin 0.083% Nebulizer Soln - NEB 1 amp Q6H PRN Administration SHORT OF BREATH/WHEEZING Aspirin 81 mg 07/04/16 10:00 07/12/16 10:14 Ecotrin - PO 81 mg DAILY JESÚS Administration Atorvastatin Calcium 20 mg 07/03/16 22:00 07/11/16 21:24 Lipitor - PO 20 mg HS JESÚS Administration Cyanocobalamin 1,000 mcg 07/04/16 10:00 07/12/16 10:14 Vitamin B12 - PO 1,000 mcg DAILY JESÚS Administration Epoetin Dawood 10,000 unit 07/10/16 19:00 07/10/16 18:45 Procrit - SQ 10,000 unit Q7D JESÚS Administration Heparin Sodium (Porcine) 5,000 unit 07/03/16 22:00 07/12/16 10:15 Heparin - SQ 5,000 unit BID JESÚS Administration Furosemide 100 mg/ Dextrose 50 mls @ 2.5 mls/hr 07/08/16 18:00 07/11/16 22:39 IVPB 2.5 mls/hr TITR JESÚS Administration Protocol 5 MG/HR Insulin Aspart 1 vial 07/03/16 22:00 07/12/16 06:11 Novolog Vial Sliding Scale - SQ Not Given ACHS JESÚS Protocol Insulin Detemir 10 units 07/04/16 07:00 07/12/16 06:18 Levemir Vial SQ 10 units DAILY@0700 JES[facility]S Administration Isosorbide Mononitrate 30 mg 07/04/16 10:00 07/12/16 10:13 Imdur - PO 30 mg DAILY JESÚS Administration Levothyroxine Sodium 50 mcg 07/04/16 07:00 07/12/16 06:15 Synthroid - PO 50 mcg DAILY@0700 JESÚS Administration Lidocaine 1 patch 07/04/16 10:00 07/12/16 10:14 Lidoderm Patch - TP 1 patch DAILY JESÚS Administration Metoclopramide HCl 10 mg 07/08/16 16:30 07/12/16 10:13 Reglan - PO 10 mg ACHS JESÚS Administration Metoprolol Succinate 25 mg 07/08/16 11:15 07/12/16 10:13 Toprol Xl - PO 25 mg DAILY JESÚS Administration Nystatin 1 applic 07/03/16 22:00 07/12/16 10:16 Mycostatin Cream - TP 1 applic BID JESÚS Administration Oxycodone HCl 5 mg 07/03/16 20:31 07/12/16 08:07 Roxicodone - PO 5 mg Q4H PRN Administration PAIN LEVEL 6-10 Pantoprazole Sodium 20 mg 07/08/16 11:15 07/12/16 10:13 Protonix - PO 20 mg DAILY JESÚS Administration Polyethylene Glycol 17 gm 07/04/16 10:00 07/12/16 10:15 Miralax (For Daily Use) - PO 17 grams DAILY JES[facility]S Administration Senna/Docusate Sodium 2 tablet 07/03/16 22:00 07/11/16 21:24 Pericolace - PO 2 tablet HS JESÚS Administration Simethicone 80 mg 07/03/16 22:00 07/12/16 10:13 Mylicon - PO 80 mg QID JESÚS Administration Vital Signs Period Temp Pulse Resp BP Sys/Hagan Pulse Ox Last 24 Hr 97.1 F-98.8 F 71-88 18-20 133-153/49-67 98-99 Constitutional: Yes: No Distress, Calm, Obese Eyes: No: Sclera Icterus Cardiovascular: Yes: Regular Rate and Rhythm, S1, S2, Other (PMI displaced). No: JVD (tds habitus,) 2/6 sys murmur at apex Gallop Respiratory: Yes: diminished air movement, poor effort. No: Accessory Muscle Use Gastrointestinal: Yes: Normal Bowel Sounds (tds exam (++ obese)), Soft. No: Tenderness Extremities: No: Cold Edema: pitting and nonpitting chronic edema of le, chronic stasis changes; left bka Integumentary: No: Jaundice diaphoresis Neurological: Yes: Alert, Oriented (x3) Psychiatric: No: Agitated Labs: CBC, BMP 07/10/16 05:35 07/12/16 05:50 tele: sr, occ pvcs, no VT Echo 07/01/2016: Mild decr EF. paradoxical septal motion with mild HK of anteroseptum. RV not seen. 1+ mr/tr. mild (although MG only 12 mmHg). Echo 06/2015: mild-mod decr EF--global; nl RV; mild LAE; mild-mod MR/TR; RVSP 30- 40; small peric effusion; + pleural eff echo 12/06/15: mild lvh. nl lv/rv, Septal motion c/w RV volume overload. Ab diastology. mild cheryl, mild-mod mr, mild as, mod-sev tr, rvsp 50, mod pericardial eff, no tamponade. pleural effusion. echo 12/11/15: focused, Nl lv. trivial pericardial eff. Pleural effusion. EKG 06/27/16: sr, nl intervals, nonspecific tw changes, no sig change prior a/p: 71 yo with h/o HFpEF, CAD s/p MA, HTN, HL, pHTN, MIRIAM, o2 dep't copd, CKD, IDDM, hypothyroid and chronic LLE cellulitis, here with non healing left foot wound/gangrene. chronic foot wound, gangrene, now s/p bka 07/03/16: -vascular, ID following chronic HFpEF/pulm HTN/venous ins'y/acute on chronic hypoxic and hypercapneic resp failure: - pt with volume overload during mult prior admits here--vol status is always [id number] to assess given morbidly obese neck hiding JVD, chronic venous ins'y/lymphedema of legs, and chronically very abnormal CXR markings due to overlying soft tissue - suspect chronic RV failure syndrome clinically, with evidence of this reported intermittently on serial echoes here over the years - cr was above baseline, possible due to infection so had been holding diuretics but then had long NSVT on tele ? sign of incr'd filling pressures so started on lasix gtt. Cr now back to baseline. 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 Currently again today (07/12) with lasix gtt her wt is trending down and cr improving so will cont same iv lasix gtt until wt plateaus or cr starts to rise again. - pt with mult RFs for PE but creat prohibitive for IV contrast, and she cannot currently cooperate with V/Q; d/w'd dr daily who feels cause of her current decompensation is more likely sec to exacerbation of her chronic lung disease PSVT: -likely brief run of ATach on tele 07/01. no recurrence. CAD, h/o NSTEMI: -has previously refused stress tests. h/o NSTEMI x 2 (2012, 2014) in setting of demand (sepsis/anemia) -MATEO deferred previously due to labile creat's--no change; -cath previously deferred due to: pt preference; hi risk of vascular complications (obese habitus), hi risk of BERNARDINO, and h/o recurrent anemia, possible occult GIB -currently without anginal sx's. EKG unchanged. Con't statin, BB, asa, imdur CKD/michael: -plan as above, cr improved VTach: -17 beat run of NSVT on tele -keep K >4 and Mag >2 -changed coreg 3.125 to toprol 25 qd -bradycardia on tele earlier--was persistent so coreg dose decr'd but pt likely with hi vagal tone persistently given known obesity/hypoventilation syndrome and laying in bed sluggishly for most (all?) of this admit -monitor tele, no sig vt overnight anemia: -chronic, baseline runs 8s-9s; -freq acute drops/PRBCs in past; currently near baseline HTN: -controlled gastroparesis: -s/p ngt, now removed, tolerating food -GI following
--- NOTE | 2016-07-12 11:41 | PN ---
Progress Note, Physician History of Present Illness: PULMONARY ALERT,NAD,-SOB,ON LASIX DRIP - Current Medication List Current Medications: Active Medications Al Hydroxide/Mg Hydroxide (Mylanta Oral Suspension -) 30 ml PO BID [facility] Last Admin: 07/12/16 10:13 Dose: 30 ml Albuterol Sulfate (Ventolin 0.083% Nebulizer Soln -) 1 amp NEB Q6H PRN PRN Reason: SHORT OF BREATH/WHEEZING Last Admin: 07/11/16 15:11 Dose: 1 amp Aspirin (Ecotrin -) 81 mg PO DAILY [facility] Last Admin: 07/12/16 10:14 Dose: 81 mg Atorvastatin Calcium (Lipitor -) 20 mg PO HS [facility] Last Admin: 07/11/16 21:24 Dose: 20 mg Cyanocobalamin (Vitamin B12 -) 1,000 mcg PO DAILY [facility] Last Admin: 07/12/16 10:14 Dose: 1,000 mcg Epoetin Dawood (Procrit -) 10,000 unit SQ Q7D [facility] Last Admin: 07/10/16 18:45 Dose: 10,000 unit Heparin Sodium (Porcine) (Heparin -) 5,000 unit SQ BID [facility] Last Admin: 07/12/16 10:15 Dose: 5,000 unit Furosemide 100 mg/ Dextrose 50 mls @ 2.5 mls/hr IVPB TITR JESÚS; 5 MG/HR PRN Reason: Protocol Last Admin: 07/11/16 22:39 Dose: 2.5 mls/hr Insulin Aspart (Novolog Vial Sliding Scale -) 1 vial SQ [facility] PRN Reason: Protocol Last Admin: 07/12/16 06:11 Dose: Not Given Insulin Detemir (Levemir Vial) 10 units SQ DAILY@0700 [facility] Last Admin: 07/12/16 06:18 Dose: 10 units Isosorbide Mononitrate (Imdur -) 30 mg PO DAILY [facility] Last Admin: 07/12/16 10:13 Dose: 30 mg Levothyroxine Sodium (Synthroid -) 50 mcg PO DAILY@0700 [facility] Last Admin: 07/12/16 06:15 Dose: 50 mcg Lidocaine (Lidoderm Patch -) 1 patch TP DAILY [facility] Last Admin: 07/12/16 10:14 Dose: 1 patch Metoclopramide HCl (Reglan -) 10 mg PO [facility] Last Admin: 07/12/16 10:13 Dose: 10 mg Metoprolol Succinate (Toprol Xl -) 25 mg PO DAILY [facility] Last Admin: 07/12/16 10:13 Dose: 25 mg Nystatin (Mycostatin Cream -) 1 applic TP BID [facility] Last Admin: 07/12/16 10:16 Dose: 1 applic Oxycodone HCl (Roxicodone -) 5 mg PO Q4H PRN PRN Reason: PAIN LEVEL 6-10 Last Admin: 07/12/16 08:07 Dose: 5 mg Pantoprazole Sodium (Protonix -) 20 mg PO DAILY [facility] Last Admin: 07/12/16 10:13 Dose: 20 mg Polyethylene Glycol (Miralax (For Daily Use) -) 17 gm PO DAILY [facility] Last Admin: 07/12/16 10:15 Dose: 17 grams Senna/Docusate Sodium (Pericolace -) 2 tablet PO HS [facility] Last Admin: 07/11/16 21:24 Dose: 2 tablet Simethicone (Mylicon -) 80 mg PO QID [facility] Last Admin: 07/12/16 10:13 Dose: 80 mg - Objective Vital Signs: Vital Signs Temperature 97.1 F L 07/12/16 02:00 Pulse Rate 76 07/12/16 10:32 Respiratory Rate 20 07/12/16 02:00 Blood Pressure 153/67 07/12/16 02:00 O2 Sat by Pulse Oximetry (%) 99 07/12/16 10:32 Constitutional: Yes: Well Nourished, Calm Eyes: Yes: WNL HENT: Yes: WNL Neck: Yes: WNL Cardiovascular: Yes: Regular Rate and Rhythm, S1, S2 Respiratory: Yes: Diminished Gastrointestinal: Yes: Normal Bowel Sounds, Soft Extremities: Yes: Amputation (LEFT BKA) Edema: Yes Labs: CBC, BMP 07/10/16 05:35 07/12/16 05:50 INR, PTT INR 1.28 (0.82-1.09) H 07/03/16 05:45 Problem List - Problems (1) Diabetes Code(s): E11.9 - TYPE 2 DIABETES MELLITUS WITHOUT COMPLICATIONS (2) Fluid overload Code(s): E87.70 - FLUID OVERLOAD, UNSPECIFIED (3) Pulmonary hypertension Code(s): I27.2 - OTHER SECONDARY PULMONARY HYPERTENSION (4) Acute and chronic respiratory failure with hypercapnia Code(s): J96.22 - ACUTE AND CHRONIC RESPIRATORY FAILURE WITH HYPERCAPNIA (5) Acute on chronic systolic (congestive) heart failure Code(s): I50.23 - ACUTE ON CHRONIC SYSTOLIC (CONGESTIVE) HEART FAILURE (6) Anemia Code(s): D64.9 - ANEMIA, UNSPECIFIED Qualifiers: Anemia type: unspecified type Qualified Code(s): D64.9 - Anemia, unspecified (7) CAD (coronary artery disease) Code(s): I25.10 - ATHSCL HEART DISEASE OF [place] CORONARY ARTERY W/O ANG PCTRS Qualifiers: Coronary Disease-Associated Artery/Lesion type: unspecified vessel or lesion type [place] vs. transplanted heart: [place] heart Associated angina: without angina Qualified Code(s): I25.10 - Atherosclerotic heart disease of [place] coronary artery without angina pectoris (8) COPD (chronic obstructive pulmonary disease) Code(s): J44.9 - CHRONIC OBSTRUCTIVE PULMONARY DISEASE, UNSPECIFIED Qualifiers : COPD type: unspecified COPD Qualified Code(s): J44.9 - Chronic obstructive pulmonary disease, unspecified (9) Morbid obesity Code(s): E66.01 - MORBID (SEVERE) OBESITY DUE TO EXCESS CALORIES Qualifiers: Obesity type: due to excess calories Qualified Code(s): E66.01 - Morbid (severe) obesity due to excess calories (10) MIRIAM (obstructive sleep apnea) Code(s): G47.33 - OBSTRUCTIVE SLEEP APNEA (ADULT) (PEDIATRIC) Assessment/Plan Problem List - Problems (1) Acute on chronic renal failure Code(s): N17.9 - ACUTE KIDNEY FAILURE, UNSPECIFIED N18.9 - CHRONIC KIDNEY DISEASE, UNSPECIFIED (2) CO2 retention Code(s): E87.2 - ACIDOSIS (3) Diabetes Code(s): E11.9 - TYPE 2 DIABETES MELLITUS WITHOUT COMPLICATIONS (4) Fluid overload Code(s): E87.70 - FLUID OVERLOAD, UNSPECIFIED (5) Gangrene Code(s): I96 - GANGRENE, NOT ELSEWHERE CLASSIFIED LIKELY OSAS COFFEE GROUND EMESIS ACUTE ON CHRONIC HYPOXEMIC/HYPERCAPNEIC RESPIRATORY FAILURE Assessment/Plan INHALED BRONCHODILATORS LASIX DRIP O2 DVT PROPHYLAXSIS BIPAP PRN F/U ABG on nasal O2 f/u CHEST X-RAYS MONITOR H+H MONITOR LYTES,RENAL FUNCTION DR LANDA
--- NOTE | 2016-07-12 12:41 | PN ---
Progress Note (short form) - Note Progress Note: Renal follow up for CRISTELA on CKD Pt seen and examined at the bedside no acute complaints has pain in LE no sob or chest pain Vital Signs Temperature 97.1 F L 07/12/16 02:00 Pulse Rate 76 07/12/16 10:32 Respiratory Rate 20 07/12/16 02:00 Blood Pressure 153/67 07/12/16 02:00 O2 Sat by Pulse Oximetry (%) 99 07/12/16 10:32 Intake & Output 07/09/16 07/10/16 07/11/16 07/12/16 23:59 23:59 23:59 23:59 Intake Total 480 160 470 150 Balance 480 160 470 150 Weight 287 lb 6.4 oz 285 lb 3.2 oz 277 lb 12.8 oz Gen: NAD CVS: RRR, No M/R Lungs: Dec BS throughout (anterior exam) Abd: soft, Obese, no tenderness Ext: 2+ edema extending to thighs CBC, BMP 07/10/16 05:35 07/12/16 05:50 Laboratory Tests 07/12/16 05:50 Calcium 8.6 Phosphorus 2.5 Magnesium 2.1 Current Medications Al Hydroxide/Mg Hydroxide (Mylanta Oral Suspension -) 30 ml PO BID [facility] Last Admin: 07/12/16 10:13 Dose: 30 ml Albuterol Sulfate (Ventolin 0.083% Nebulizer Soln -) 1 amp NEB Q6H PRN PRN Reason: SHORT OF BREATH/WHEEZING Last Admin: 07/11/16 15:11 Dose: 1 amp Aspirin (Ecotrin -) 81 mg PO DAILY [facility] Last Admin: 07/12/16 10:14 Dose: 81 mg Atorvastatin Calcium (Lipitor -) 20 mg PO HS [facility] Last Admin: 07/11/16 21:24 Dose: 20 mg Cyanocobalamin (Vitamin B12 -) 1,000 mcg PO DAILY [facility] Last Admin: 07/12/16 10:14 Dose: 1,000 mcg Epoetin Dawood (Procrit -) 10,000 unit SQ Q7D [facility] Last Admin: 07/10/16 18:45 Dose: 10,000 unit Heparin Sodium (Porcine) (Heparin -) 5,000 unit SQ BID [facility] Last Admin: 07/12/16 10:15 Dose: 5,000 unit Furosemide 100 mg/ Dextrose 50 mls @ 2.5 mls/hr IVPB TITR [facility]; 5 MG/HR PRN Reason: Protocol Last Admin: 07/11/16 22:39 Dose: 2.5 mls/hr Insulin Aspart (Novolog Vial Sliding Scale -) 1 vial SQ [facility] PRN Reason: Protocol Last Admin: 07/12/16 11:36 Dose: Not Given Insulin Detemir (Levemir Vial) 10 units SQ DAILY@0700 [facility] Last Admin: 07/12/16 06:18 Dose: 10 units Isosorbide Mononitrate (Imdur -) 30 mg PO DAILY [facility] Last Admin: 07/12/16 10:13 Dose: 30 mg Levothyroxine Sodium (Synthroid -) 50 mcg PO DAILY@0700 [facility] Last Admin: 07/12/16 06:15 Dose: 50 mcg Lidocaine (Lidoderm Patch -) 1 patch TP DAILY [facility] Last Admin: 07/12/16 10:14 Dose: 1 patch Metoclopramide HCl (Reglan -) 10 mg PO [facility] Last Admin: 07/12/16 10:13 Dose: 10 mg Metoprolol Succinate (Toprol Xl -) 25 mg PO DAILY [facility] Last Admin: 07/12/16 10:13 Dose: 25 mg Nystatin (Mycostatin Cream -) 1 applic TP BID [facility] Last Admin: 07/12/16 10:16 Dose: 1 applic Oxycodone HCl (Roxicodone -) 5 mg PO Q4H PRN PRN Reason: PAIN LEVEL 6-10 Last Admin: 07/12/16 11:40 Dose: 5 mg Pantoprazole Sodium (Protonix -) 20 mg PO DAILY [facility] Last Admin: 07/12/16 10:13 Dose: 20 mg Polyethylene Glycol (Miralax (For Daily Use) -) 17 gm PO DAILY [facility] Last Admin: 07/12/16 10:15 Dose: 17 grams Senna/Docusate Sodium (Pericolace -) 2 tablet PO HS [facility] Last Admin: 07/11/16 21:24 Dose: 2 tablet Simethicone (Mylicon -) 80 mg PO QID [facility] Last Admin: 07/12/16 10:13 Dose: 80 mg A/p 71 year old Woman with PMhx of CKD, CHF, Morbid Obesity, IDDM, Anemia who presented with worsening LE wounds and found to have CRISTELA with BUN/Cr of 90/2.5. #CRISTELA on CKD with Anasarca Continue Lasix gtt as weights and renal function improving trend BUN/Cr and electrolytes avoid nsaids, MATEO/ARB for now #LE gangrene/PVD s/p left BKA pain control surgical follow up wound care Thank you Lambert Mcnamara
[2016-07-12] MEDS: ATORVASTATIN CA 20 MG TABLET (FP) PO SCH (21:18)
[2016-07-12] MEDS: SENNOSIDES/DOCUSATE COMBO (SENNA PLUS) TABLET (UD) PO SCH (21:19)
[2016-07-12] MEDS: FUROSEMIDE INJECTION 100 MG in DEXTROSE 5%-WATER - 40 ML IVPB SCH (22:44)
[2016-07-13] MEDS: METOCLOPRAMIDE HCL 10 MG TABLET (FP) PO SCH ×4 (06:22→21:31)
[2016-07-13] MEDS: LEVOTHYROXINE NA 50 MCG TABLET (FP) PO SCH (06:22)
[2016-07-13] MEDS: INSULIN SLIDING SCALE (NOVOLOG) 1 VIAL SQ SCH ×4 (06:22→21:31)
[2016-07-13] MEDS: INSULIN DETEMIR 100 UNITS/ML MDV SQ SCH (06:22)
[2016-07-13 07:10] LABS: EOSINOPHIL 4.3 % (0-4.5); MCH 28.9 pg (25.7-33.7); MCHC 32.1 g/dl (32.0-36.0); MEAN CELL VOLUME 89.9 fl (80-96); MEAN PLT VOLUME 8.9 fl (7.5-11.1); NEUTROPHILS 67.6 % (42.8-82.8); PLATELET COUNT 158 K/MM3 (134-434); RDW 16.6 % (11.6-15.6); WHITE BLOOD COUNT 5.5 K/mm3 (4.0-10.0)
[2016-07-13 08:57] LABS: ANION GAP 5 (8-16); CALCIUM 8.5 mg/dL (8.5-10.1); CO2 36 mmol/L (21-32); GLUCOSE,RANDOM 95 mg/dL (74-106)
[2016-07-13 09:00] LABS: ALK PHOS 89 U/L (45-117); BILIRUBIN,TOTAL 0.6 mg/dL (0.2-1.0); CREATININE 1.3 mg/dL (0.55-1.02); PHOSPHOROUS 2.5 mg/dL (2.5-4.9); SGOT/AST 5 U/L (15-37); SGPT/ALT < 6 U/L (12-78); TOT PROT 5.8 g/dl (6.4-8.2)
[2016-07-13] MEDS: oxyCODONE HCL 5 MG TABLET PO PRN ×3 (10:24→21:31)
[2016-07-13] MEDS: CYANOCOBALAMIN 1,000 MCG TABLET (FP) PO SCH (10:33)
[2016-07-13] MEDS: PANTOPRAZOLE 20 MG TABLET (FP) PO SCH (10:33)
[2016-07-13] MEDS: METOPROLOL SUCCINATE 25 MG TAB.SR.24H (FP) PO SCH (10:33)
[2016-07-13] MEDS: ISOSORBIDE MONONITRATE 30 MG TAB.SR.24H (FP) PO SCH (10:33)
[2016-07-13] MEDS: SIMETHICONE 80 MG TAB.CHEW (FP) PO SCH ×4 (10:33→21:30)
[2016-07-13] MEDS: ASPIRIN COATED 81 MG TABLET.EC PO SCH (10:34)
[2016-07-13] MEDS: LIDOCAINE 5% TOPICAL PATCH TP SCH (10:34)
[2016-07-13] MEDS: POLYETHYLENE GLYCOL 3350 119 GM BTL PO SCH (10:34)
[2016-07-13] MEDS: HEPARIN NA (PORCINE) 5,000 UNITS/ML 1ML VIAL SQ SCH ×2 (10:34→21:42)
[2016-07-13] MEDS: NYSTATIN 100,000 UNIT/GM TOPICAL CREAM 15 GM TUBE TP SCH ×2 (10:35→21:42)
[2016-07-13] MEDS: MAG HYDROX/AL HYDROX/SIMETH 30 ML UNIT-DOSE CUP PO SCH ×2 (10:35→21:30)
--- NOTE | 2016-07-13 11:17 | PN ---
Progress Note, Physician Chief Complaint: in bed no new c/o has on/off legs pains bilateral, on percocet prn better afebrile, no CP/SOB, no bleed - Current Medication List Current Medications: Active Medications Al Hydroxide/Mg Hydroxide (Mylanta Oral Suspension -) 30 ml PO BID [facility] Last Admin: 07/13/16 10:35 Dose: 30 ml Aspirin (Ecotrin -) 81 mg PO DAILY [facility] Last Admin: 07/13/16 10:34 Dose: 81 mg Atorvastatin Calcium (Lipitor -) 20 mg PO HS [facility] Last Admin: 07/12/16 21:18 Dose: 20 mg Cyanocobalamin (Vitamin B12 -) 1,000 mcg PO DAILY [facility] Last Admin: 07/13/16 10:33 Dose: 1,000 mcg Epoetin Dawood (Procrit -) 10,000 unit SQ Q7D [facility] Last Admin: 07/10/16 18:45 Dose: 10,000 unit Heparin Sodium (Porcine) (Heparin -) 5,000 unit SQ BID [facility] Last Admin: 07/13/16 10:34 Dose: 5,000 unit Furosemide 100 mg/ Dextrose 50 mls @ 2.5 mls/hr IVPB TITR [facility]; 5 MG/HR PRN Reason: Protocol Last Admin: 07/12/16 22:44 Dose: 2.5 mls/hr Insulin Aspart (Novolog Vial Sliding Scale -) 1 vial SQ [facility] PRN Reason: Protocol Last Admin: 07/13/16 06:22 Dose: Not Given Insulin Detemir (Levemir Vial) 10 units SQ DAILY@0700 [facility] Last Admin: 07/13/16 06:22 Dose: 10 units Isosorbide Mononitrate (Imdur -) 30 mg PO DAILY [facility] Last Admin: 07/13/16 10:33 Dose: 30 mg Levothyroxine Sodium (Synthroid -) 50 mcg PO DAILY@0700 [facility] Last Admin: 07/13/16 06:22 Dose: 50 mcg Lidocaine (Lidoderm Patch -) 1 patch TP DAILY [facility] Last Admin: 07/13/16 10:34 Dose: 1 patch Metoclopramide HCl (Reglan -) 10 mg PO ACHS [facility] Last Admin: 07/13/16 10:35 Dose: Not Given Metoprolol Succinate (Toprol Xl -) 25 mg PO DAILY [facility] Last Admin: 07/13/16 10:33 Dose: 25 mg Nystatin (Mycostatin Cream -) 1 applic TP BID [facility] Last Admin: 07/13/16 10:35 Dose: 1 applic Oxycodone HCl (Roxicodone -) 5 mg PO Q4H PRN PRN Reason: PAIN LEVEL 6-10 Last Admin: 07/12/16 20:30 Dose: 5 mg Pantoprazole Sodium (Protonix -) 20 mg PO DAILY [facility] Last Admin: 07/13/16 10:33 Dose: 20 mg Polyethylene Glycol (Miralax (For Daily Use) -) 17 gm PO DAILY [facility] Last Admin: 07/13/16 10:34 Dose: 17 grams Senna/Docusate Sodium (Pericolace -) 2 tablet PO HS [facility] Last Admin: 07/12/16 21:19 Dose: 2 tablet Simethicone (Mylicon -) 80 mg PO QID [facility] Last Admin: 07/13/16 10:33 Dose: 80 mg - Objective Vital Signs: Vital Signs Temperature 98.2 F 07/13/16 06:08 Pulse Rate 75 07/13/16 06:08 Respiratory Rate 18 07/13/16 06:08 Blood Pressure 123/67 07/13/16 06:08 O2 Sat by Pulse Oximetry (%) 98 07/13/16 05:56 Constitutional: Yes: No Distress, Calm Eyes: Yes: Conjunctiva Clear HENT: Yes: Atraumatic Neck: Yes: Supple Cardiovascular: Yes: Regular Rate and Rhythm Respiratory: Yes: Diminished Gastrointestinal: Yes: Soft. No: Distention, Tenderness Genitourinary: No: Hematuria Musculoskeletal: No: Joint Stiffness, Joint Swelling Extremities: No: Cold, Cool Edema: Yes Integumentary: Yes: Venous Stasis Changes Neurological: Yes: Alert, Oriented Psychiatric: Yes: Alert, Oriented. No: Agitated, Suicidal Ideation Labs: CBC, BMP 07/13/16 05:20 07/13/16 05:20 INR, PTT INR 1.28 (0.82-1.09) H 07/03/16 05:45 - ....Imaging Other: Report Reviewed Assessment/Plan The patient is a 71 year old female with significant past medical history of hypertension, hyperlipidemia, diabetes, CAD, CHF, MIx2, COPD (O2 dependent 2L), and renal insufficiency admitted for left lower extremity wound. Nonhealing after ATB and HBO tx. Pt nonambulatory for years halfway NHR; DNR DNI s/p L BKA for L foot gangrene; stable h/o ARF on CRF and CHF volume overload; improving on IV lasix anemia; stable cardio, GI, renal f/u wound stump care per vascular sx; gastric DVT aspiration PFX pain meds prn prognosis guarded DC to NH when off IV lasix drip; d/w pt and staff dr Fontenot will cover 07/13-07/15
--- NOTE | 2016-07-13 11:43 | PN ---
Progress Note, Physician History of Present Illness: No events or complaints Tele: NSR at 79, No VT - Current Medication List Current Medications: Active Medications Al Hydroxide/Mg Hydroxide (Mylanta Oral Suspension -) 30 ml PO BID [facility] Last Admin: 07/13/16 10:35 Dose: 30 ml Aspirin (Ecotrin -) 81 mg PO DAILY [facility] Last Admin: 07/13/16 10:34 Dose: 81 mg Atorvastatin Calcium (Lipitor -) 20 mg PO HS [facility] Last Admin: 07/12/16 21:18 Dose: 20 mg Cyanocobalamin (Vitamin B12 -) 1,000 mcg PO DAILY [facility] Last Admin: 07/13/16 10:33 Dose: 1,000 mcg Epoetin Dawood (Procrit -) 10,000 unit SQ Q7D [facility] Last Admin: 07/10/16 18:45 Dose: 10,000 unit Heparin Sodium (Porcine) (Heparin -) 5,000 unit SQ BID [facility] Last Admin: 07/13/16 10:34 Dose: 5,000 unit Furosemide 100 mg/ Dextrose 50 mls @ 2.5 mls/hr IVPB TITR [facility]; 5 MG/HR PRN Reason: Protocol Last Admin: 07/12/16 22:44 Dose: 2.5 mls/hr Insulin Aspart (Novolog Vial Sliding Scale -) 1 vial SQ [facility] PRN Reason: Protocol Last Admin: 07/13/16 06:22 Dose: Not Given Insulin Detemir (Levemir Vial) 10 units SQ DAILY@0700 [facility] Last Admin: 07/13/16 06:22 Dose: 10 units Isosorbide Mononitrate (Imdur -) 30 mg PO DAILY [facility] Last Admin: 07/13/16 10:33 Dose: 30 mg Levothyroxine Sodium (Synthroid -) 50 mcg PO DAILY@0700 [facility] Last Admin: 07/13/16 06:22 Dose: 50 mcg Lidocaine (Lidoderm Patch -) 1 patch TP DAILY [facility] Last Admin: 07/13/16 10:34 Dose: 1 patch Metoclopramide HCl (Reglan -) 10 mg PO ACHS [facility] Last Admin: 07/13/16 10:35 Dose: Not Given Metoprolol Succinate (Toprol Xl -) 25 mg PO DAILY [facility] Last Admin: 07/13/16 10:33 Dose: 25 mg Nystatin (Mycostatin Cream -) 1 applic TP BID [facility] Last Admin: 07/13/16 10:35 Dose: 1 applic Oxycodone HCl (Roxicodone -) 5 mg PO Q4H PRN PRN Reason: PAIN LEVEL 6-10 Last Admin: 07/12/16 20:30 Dose: 5 mg Pantoprazole Sodium (Protonix -) 20 mg PO DAILY [facility] Last Admin: 07/13/16 10:33 Dose: 20 mg Polyethylene Glycol (Miralax (For Daily Use) -) 17 gm PO DAILY [facility] Last Admin: 07/13/16 10:34 Dose: 17 grams Senna/Docusate Sodium (Pericolace -) 2 tablet PO HS [facility] Last Admin: 07/12/16 21:19 Dose: 2 tablet Simethicone (Mylicon -) 80 mg PO QID [facility] Last Admin: 07/13/16 10:33 Dose: 80 mg - Objective Vital Signs: Vital Signs Temperature 98.2 F 07/13/16 06:08 Pulse Rate 75 07/13/16 06:08 Respiratory Rate 18 07/13/16 06:08 Blood Pressure 123/67 07/13/16 06:08 O2 Sat by Pulse Oximetry (%) 98 07/13/16 05:56 Constitutional: Yes: No Distress, Calm, Other (Asleep) HENT: Yes: WNL Neck: Yes: WNL Cardiovascular: Yes: Regular Rate and Rhythm Respiratory: Yes: Regular Gastrointestinal: Yes: Abdomen, Obese Extremities: Yes: Erythema Edema: Yes Edema: LLE: 4+, RLE: 4+ Labs: CBC, BMP 07/13/16 05:20 07/13/16 05:20 INR, PTT INR 1.28 (0.82-1.09) H 07/03/16 05:45 Assessment/Plan a/p: 71 yo with h/o HFpEF, CAD s/p ID, HTN, HL, pHTN, MIRIAM, o2 dep't copd, CKD, IDDM, hypothyroid and chronic LLE cellulitis, here with non healing left foot wound/gangrene. chronic foot wound, gangrene, now s/p bka 07/03/16: -vascular, ID following chronic HFpEF/pulm HTN/venous ins'y/acute on chronic hypoxic and hypercapneic resp failure: - pt with volume overload during mult prior admits here--vol status is always [id number] to assess given morbidly obese neck hiding JVD, chronic venous ins'y/lymphedema of legs, and chronically very abnormal CXR markings due to overlying soft tissue - suspect chronic RV failure syndrome clinically, with evidence of this reported intermittently on serial echoes here over the years - cr was above baseline, possible due to infection so had been holding diuretics but then had long NSVT on tele ? sign of incr'd filling pressures so started on lasix gtt. Cr now back to baseline. Will attempt to finisher special stocks her vol status with wt as when she was here over past few months her wt was as low as 270s. Currently again today (07/13) with lasix gtt her wt is stable today at 278 and cr stable so will cont same iv lasix gtt until wt plateaus or cr starts to rise again. - pt with mult RFs for PE but creat prohibitive for IV contrast, and she cannot currently cooperate with V/Q; d/w'd dr daily who feels cause of her current decompensation is more likely sec to exacerbation of her chronic lung disease PSVT: -likely brief run of ATach on tele 07/01. no recurrence. CAD, h/o NSTEMI: -has previously refused stress tests. h/o NSTEMI x 2 (2012, 2014) in setting of demand (sepsis/anemia) -MATEO deferred previously due to labile creat's--no change; -cath previously deferred due to: pt preference; hi risk of vascular complications (obese habitus), hi risk of BERNARDINO, and h/o recurrent anemia, possible occult GIB -currently without anginal sx's. EKG unchanged. Con't statin, BB, asa, imdur CKD/michael: -plan as above, cr improved VTach: -17 beat run of NSVT on tele -keep K >4 and Mag >2 -changed coreg 3.125 to toprol 25 qd -bradycardia on tele earlier--was persistent so coreg dose decr'd but pt likely with hi vagal tone persistently given known obesity/hypoventilation syndrome and laying in bed sluggishly for most (all?) of this admit -monitor tele, no sig vt overnight anemia: -chronic, baseline runs 8s-9s; -freq acute drops/PRBCs in past; currently near baseline HTN: -controlled gastroparesis: -s/p ngt, now removed, tolerating food -GI following
--- NOTE | 2016-07-13 12:57 | PN ---
Progress Note (short form) - Note Progress Note: Renal follow up for CRISTELA on CKD Pt seen and examined at the bedside no complaints, no sob or chest pain Vital Signs Temperature 98.2 F 07/13/16 06:08 Pulse Rate 75 07/13/16 06:08 Respiratory Rate 18 07/13/16 06:08 Blood Pressure 123/67 07/13/16 06:08 O2 Sat by Pulse Oximetry (%) 98 07/13/16 05:56 Intake & Output 07/10/16 07/11/16 07/12/16 07/13/16 23:59 23:59 23:59 23:59 Intake Total 160 470 540 150 Balance 160 470 540 150 Weight 285 lb 3.2 oz 277 lb 12.8 oz 278 lb 6.4 oz Gen: NAD CVS: RRR, No M/R Lungs: Dec BS throughout (anterior exam) Abd: soft, Obese, no tenderness Ext: 2+ edema extending to thighs CBC, BMP 07/13/16 05:20 07/13/16 05:20 Current Medications Al Hydroxide/Mg Hydroxide (Mylanta Oral Suspension -) 30 ml PO BID [facility] Last Admin: 07/13/16 10:35 Dose: 30 ml Aspirin (Ecotrin -) 81 mg PO DAILY [facility] Last Admin: 07/13/16 10:34 Dose: 81 mg Atorvastatin Calcium (Lipitor -) 20 mg PO HS [facility] Last Admin: 07/12/16 21:18 Dose: 20 mg Cyanocobalamin (Vitamin B12 -) 1,000 mcg PO DAILY [facility] Last Admin: 07/13/16 10:33 Dose: 1,000 mcg Epoetin Dawood (Procrit -) 10,000 unit SQ Q7D [facility] Last Admin: 07/10/16 18:45 Dose: 10,000 unit Heparin Sodium (Porcine) (Heparin -) 5,000 unit SQ BID [facility] Last Admin: 07/13/16 10:34 Dose: 5,000 unit Furosemide 100 mg/ Dextrose 50 mls @ 2.5 mls/hr IVPB TITR [facility]; 5 MG/HR PRN Reason: Protocol Last Admin: 07/12/16 22:44 Dose: 2.5 mls/hr Insulin Aspart (Novolog Vial Sliding Scale -) 1 vial SQ ACHS [facility] PRN Reason: Protocol Last Admin: 07/13/16 06:22 Dose: Not Given Insulin Detemir (Levemir Vial) 10 units SQ DAILY@0700 [facility] Last Admin: 07/13/16 06:22 Dose: 10 units Isosorbide Mononitrate (Imdur -) 30 mg PO DAILY [facility] Last Admin: 07/13/16 10:33 Dose: 30 mg Levothyroxine Sodium (Synthroid -) 50 mcg PO DAILY@0700 [facility] Last Admin: 07/13/16 06:22 Dose: 50 mcg Lidocaine (Lidoderm Patch -) 1 patch TP DAILY [facility] Last Admin: 07/13/16 10:34 Dose: 1 patch Metoclopramide HCl (Reglan -) 10 mg PO ACHS [facility] Last Admin: 07/13/16 10:35 Dose: Not Given Metoprolol Succinate (Toprol Xl -) 25 mg PO DAILY [facility] Last Admin: 07/13/16 10:33 Dose: 25 mg Nystatin (Mycostatin Cream -) 1 applic TP BID [facility] Last Admin: 07/13/16 10:35 Dose: 1 applic Oxycodone HCl (Roxicodone -) 5 mg PO Q4H PRN PRN Reason: PAIN LEVEL 6-10 Last Admin: 07/12/16 20:30 Dose: 5 mg Pantoprazole Sodium (Protonix -) 20 mg PO DAILY [facility] Last Admin: 07/13/16 10:33 Dose: 20 mg Polyethylene Glycol (Miralax (For Daily Use) -) 17 gm PO DAILY [facility] Last Admin: 07/13/16 10:34 Dose: 17 grams Senna/Docusate Sodium (Pericolace -) 2 tablet PO HS [facility] Last Admin: 07/12/16 21:19 Dose: 2 tablet Simethicone (Mylicon -) 80 mg PO QID [facility] Last Admin: 07/13/16 10:33 Dose: 80 mg A/p 71 year old Woman with PMhx of CKD, CHF, Morbid Obesity, IDDM, Anemia who presented with worsening LE wounds and found to have CRISTELA with BUN/Cr of 90/2.5. #CRISTELA on CKD with Anasarca continue lasix as renal function improving trend BUN/Cr and electrolytes trend daily weights #LE gangrene/PVD s/p left BKA pain control surgical follow up wound care Thank you Lambert Mcnamara
--- NOTE | 2016-07-13 14:57 | PN ---
Progress Note (short form) - Note Progress Note: PULMONARY Denies shortness of breath or chest pain. Remains on lasix gtt Last Vital Signs Temp Pulse Resp BP Pulse Ox 98.2 F 82 20 133/57 98 07/13/16 14:14 07/13/16 14:14 07/13/16 14:14 07/13/16 14:14 07/13/16 05:56 Gen: NAD at rest Heart: RRR Lung: decreased breath sounds at the bases Abd: soft, nontender Ext: + edema, L BKA CBC, BMP 07/13/16 05:20 07/13/16 05:20 Active Medications Al Hydroxide/Mg Hydroxide (Mylanta Oral Suspension -) 30 ml PO BID [facility] Last Admin: 07/13/16 10:35 Dose: 30 ml Aspirin (Ecotrin -) 81 mg PO DAILY [facility] Last Admin: 07/13/16 10:34 Dose: 81 mg Atorvastatin Calcium (Lipitor -) 20 mg PO HS [facility] Last Admin: 07/12/16 21:18 Dose: 20 mg Cyanocobalamin (Vitamin B12 -) 1,000 mcg PO DAILY [facility] Last Admin: 07/13/16 10:33 Dose: 1,000 mcg Epoetin Dawood (Procrit -) 10,000 unit SQ Q7D [facility] Last Admin: 07/10/16 18:45 Dose: 10,000 unit Heparin Sodium (Porcine) (Heparin -) 5,000 unit SQ BID [facility] Last Admin: 07/13/16 10:34 Dose: 5,000 unit Furosemide 100 mg/ Dextrose 50 mls @ 2.5 mls/hr IVPB TITR [facility]; 5 MG/HR PRN Reason: Protocol Last Admin: 07/12/16 22:44 Dose: 2.5 mls/hr Insulin Aspart (Novolog Vial Sliding Scale -) 1 vial SQ ACHS [facility] PRN Reason: Protocol Last Admin: 07/13/16 11:28 Dose: Not Given Insulin Detemir (Levemir Vial) 10 units SQ DAILY@0700 [facility] Last Admin: 07/13/16 06:22 Dose: 10 units Isosorbide Mononitrate (Imdur -) 30 mg PO DAILY [facility] Last Admin: 07/13/16 10:33 Dose: 30 mg Levothyroxine Sodium (Synthroid -) 50 mcg PO DAILY@0700 [facility] Last Admin: 07/13/16 06:22 Dose: 50 mcg Lidocaine (Lidoderm Patch -) 1 patch TP DAILY [facility] Last Admin: 07/13/16 10:34 Dose: 1 patch Metoclopramide HCl (Reglan -) 10 mg PO ACHS [facility] Last Admin: 07/13/16 10:35 Dose: Not Given Metoprolol Succinate (Toprol Xl -) 25 mg PO DAILY [facility] Last Admin: 07/13/16 10:33 Dose: 25 mg Nystatin (Mycostatin Cream -) 1 applic TP BID [facility] Last Admin: 07/13/16 10:35 Dose: 1 applic Oxycodone HCl (Roxicodone -) 5 mg PO Q4H PRN PRN Reason: PAIN LEVEL 6-10 Last Admin: 07/13/16 14:25 Dose: 5 mg Pantoprazole Sodium (Protonix -) 20 mg PO DAILY [facility] Last Admin: 07/13/16 10:33 Dose: 20 mg Polyethylene Glycol (Miralax (For Daily Use) -) 17 gm PO DAILY [facility] Last Admin: 07/13/16 10:34 Dose: 17 grams Senna/Docusate Sodium (Pericolace -) 2 tablet PO HS [facility] Last Admin: 07/12/16 21:19 Dose: 2 tablet Simethicone (Mylicon -) 80 mg PO QID [facility] Last Admin: 07/13/16 14:24 Dose: 80 mg A/P Left Foot Gangrene s/p L BKA Chronic Hypoxic and Hypercapneic Respiratory Failure Acute on Chronic Renal Failure Morbid Obesity MIRIAM/OHS Volume Overload - continue lasix gtt - monitor urine output, creatinine - O2 to keep SpO2 >88% - pain control - incentive spirometry - BiPAP at night and PRN during day - DVT prophylaxis
[2016-07-13] MEDS: FUROSEMIDE INJECTION 100 MG in DEXTROSE 5%-WATER - 40 ML IVPB SCH (19:32)
[2016-07-13] MEDS: ATORVASTATIN CA 20 MG TABLET (FP) PO SCH (21:30)
[2016-07-13] MEDS: SENNOSIDES/DOCUSATE COMBO (SENNA PLUS) TABLET (UD) PO SCH (21:30)
[2016-07-14] MEDS: METOCLOPRAMIDE HCL 10 MG TABLET (FP) PO SCH ×4 (06:43→22:13)
[2016-07-14] MEDS: LEVOTHYROXINE NA 50 MCG TABLET (FP) PO SCH (06:43)
[2016-07-14] MEDS: INSULIN SLIDING SCALE (NOVOLOG) 1 VIAL SQ SCH ×4 (06:43→22:14)
[2016-07-14] MEDS: INSULIN DETEMIR 100 UNITS/ML MDV SQ SCH (06:43)
[2016-07-14 08:48] LABS: CALCIUM 8.5 mg/dL (8.5-10.1); CREATININE 1.3 mg/dL (0.55-1.02); MAGNESIUM 2.1 mg/dL (1.8-2.4); PHOSPHOROUS 2.3 mg/dL (2.5-4.9)
[2016-07-14] MEDS: oxyCODONE HCL 5 MG TABLET PO PRN ×2 (09:36→13:23)
[2016-07-14] MEDS: CYANOCOBALAMIN 1,000 MCG TABLET (FP) PO SCH (10:30)
[2016-07-14] MEDS: ASPIRIN COATED 81 MG TABLET.EC PO SCH (10:30)
[2016-07-14] MEDS: LIDOCAINE 5% TOPICAL PATCH TP SCH (10:30)
[2016-07-14] MEDS: MAG HYDROX/AL HYDROX/SIMETH 30 ML UNIT-DOSE CUP PO SCH (10:30)
[2016-07-14] MEDS: PANTOPRAZOLE 20 MG TABLET (FP) PO SCH (10:30)
[2016-07-14] MEDS: ISOSORBIDE MONONITRATE 30 MG TAB.SR.24H (FP) PO SCH (10:30)
[2016-07-14] MEDS: METOPROLOL SUCCINATE 25 MG TAB.SR.24H (FP) PO SCH (10:30)
[2016-07-14] MEDS: SIMETHICONE 80 MG TAB.CHEW (FP) PO SCH ×4 (10:30→22:13)
[2016-07-14] MEDS: NYSTATIN 100,000 UNIT/GM TOPICAL CREAM 15 GM TUBE TP SCH ×2 (10:31→22:14)
[2016-07-14] MEDS: HEPARIN NA (PORCINE) 5,000 UNITS/ML 1ML VIAL SQ SCH ×2 (10:31→22:14)
[2016-07-14] MEDS: POLYETHYLENE GLYCOL 3350 119 GM BTL PO SCH (10:31)
--- NOTE | 2016-07-14 12:13 | PN ---
Progress Note, Physician History of Present Illness: No events Constipated - Current Medication List Current Medications: Active Medications Aspirin (Ecotrin -) 81 mg PO DAILY [facility] Last Admin: 07/14/16 10:30 Dose: 81 mg Atorvastatin Calcium (Lipitor -) 20 mg PO HS [facility] Last Admin: 07/13/16 21:30 Dose: 20 mg Cyanocobalamin (Vitamin B12 -) 1,000 mcg PO DAILY [facility] Last Admin: 07/14/16 10:30 Dose: 1,000 mcg Epoetin Dawood (Procrit -) 10,000 unit SQ Q7D [facility] Last Admin: 07/10/16 18:45 Dose: 10,000 unit Heparin Sodium (Porcine) (Heparin -) 5,000 unit SQ BID [facility] Last Admin: 07/14/16 10:31 Dose: 5,000 unit Furosemide 100 mg/ Dextrose 50 mls @ 2.5 mls/hr IVPB TITR JESÚS; 5 MG/HR PRN Reason: Protocol Last Admin: 07/13/16 19:32 Dose: 2.5 mls/hr Insulin Aspart (Novolog Vial Sliding Scale -) 1 vial SQ [facility] PRN Reason: Protocol Last Admin: 07/14/16 06:43 Dose: Not Given Insulin Detemir (Levemir Vial) 10 units SQ DAILY@0700 [facility] Last Admin: 07/14/16 06:43 Dose: 10 units Isosorbide Mononitrate (Imdur -) 30 mg PO DAILY [facility] Last Admin: 07/14/16 10:30 Dose: 30 mg Levothyroxine Sodium (Synthroid -) 50 mcg PO DAILY@0700 [facility] Last Admin: 07/14/16 06:43 Dose: 50 mcg Lidocaine (Lidoderm Patch -) 1 patch TP DAILY [facility] Last Admin: 07/14/16 10:30 Dose: 1 patch Metoclopramide HCl (Reglan -) 10 mg PO ACHS [facility] Last Admin: 07/14/16 06:43 Dose: 10 mg Metoprolol Succinate (Toprol Xl -) 25 mg PO DAILY [facility] Last Admin: 07/14/16 10:30 Dose: 25 mg Nystatin (Mycostatin Cream -) 1 applic TP BID [facility] Last Admin: 07/14/16 10:31 Dose: 1 applic Oxycodone HCl (Roxicodone -) 5 mg PO Q4H PRN PRN Reason: PAIN LEVEL 6-10 Last Admin: 07/14/16 09:36 Dose: 5 mg Pantoprazole Sodium (Protonix -) 20 mg PO DAILY [facility] Last Admin: 07/14/16 10:30 Dose: 20 mg Polyethylene Glycol (Miralax (For Daily Use) -) 17 gm PO DAILY [facility] Last Admin: 07/14/16 10:31 Dose: 17 grams Potassium Phos/Sodium Phos (Phos-Nak Packet -) 1 packet PO TID [facility] Senna/Docusate Sodium (Pericolace -) 2 tablet PO HS [facility] Last Admin: 07/13/16 21:30 Dose: 2 tablet Simethicone (Mylicon -) 80 mg PO QID [facility] Last Admin: 07/14/16 10:30 Dose: 80 mg - Objective Vital Signs: Vital Signs Temperature 98.7 F 07/14/16 06:00 Pulse Rate 80 07/14/16 06:00 Respiratory Rate 18 07/14/16 06:00 Blood Pressure 129/60 07/14/16 06:00 O2 Sat by Pulse Oximetry (%) 96 07/14/16 04:23 Constitutional: Yes: No Distress Eyes: Yes: WNL HENT: Yes: WNL Neck: Yes: WNL Cardiovascular: Yes: Regular Rate and Rhythm Respiratory: Yes: WNL Extremities: Yes: Amputation Edema: Yes Edema: RLE: 3+ Labs: CBC, BMP 07/13/16 05:20 07/14/16 06:00 INR, PTT INR 1.28 (0.82-1.09) H 07/03/16 05:45 Assessment/Plan a/p: 71 yo with h/o HFpEF, CAD s/p [place], HTN, HL, pHTN, MIRIAM, o2 dep't copd, CKD, IDDM, hypothyroid and chronic LLE cellulitis, here with non healing left foot wound/gangrene. chronic foot wound, gangrene, now s/p bka 07/03/16: -vascular, ID following chronic HFpEF/pulm HTN/venous ins'y/acute on chronic hypoxic and hypercapneic resp failure: - pt with volume overload during mult prior admits here--vol status is always [id number] to assess given morbidly obese neck hiding JVD, chronic venous ins'y/lymphedema of legs, and chronically very abnormal CXR markings due to overlying soft tissue - suspect chronic RV failure syndrome clinically, with evidence of this reported intermittently on serial echoes here over the years - cr was above baseline, possible due to infection so had been holding diuretics but then had long NSVT on tele ? sign of incr'd filling pressures so started on lasix gtt. Cr now back to baseline. 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 today Today (07/14) with on lasix gtt her wt is down today to 271 and cr stable (1.3) so will cont same iv lasix gtt until wt plateaus or cr starts to rise again. - pt with mult RFs for PE but creat prohibitive for IV contrast, and she cannot currently cooperate with V/Q; d/w'd dr daily who feels cause of her current decompensation is more likely sec to exacerbation of her chronic lung disease CAD, h/o NSTEMI: -has previously refused stress tests. h/o NSTEMI x 2 (2012, 2014) in setting of demand (sepsis/anemia) -MATEO deferred previously due to labile creat's--no change; -cath previously deferred due to: pt preference; hi risk of vascular complications (obese habitus), hi risk of BERNARDINO, and h/o recurrent anemia, possible occult GIB -currently without anginal sx's. EKG unchanged. Con't statin, BB, asa, imdur CKD/michael: -plan as above, cr improved
--- NOTE | 2016-07-14 13:00 | PN ---
Progress Note (short form) - Note Progress Note: PULMONARY Denies shortness of breath or chest pain. Remains on lasix gtt Last Vital Signs Temp Pulse Resp BP Pulse Ox 98.7 F 80 18 129/60 96 07/14/16 06:00 07/14/16 06:00 07/14/16 06:00 07/14/16 06:00 07/14/16 04:23 Intake & Output 07/11/16 07/12/16 07/13/16 07/14/16 23:59 23:59 23:59 23:59 Intake Total 470 540 390 150 Balance 470 540 390 150 Weight 285 lb 3.2 oz 277 lb 12.8 oz 278 lb 6.4 oz 271 lb 8 oz Gen: NAD at rest Heart: RRR Lung: decreased breath sounds at the bases Abd: soft, nontender Ext: + edema, L BKA CBC, BMP 07/13/16 05:20 07/14/16 06:00 Active Medications Aspirin (Ecotrin -) 81 mg PO DAILY [facility] Last Admin: 07/14/16 10:30 Dose: 81 mg Atorvastatin Calcium (Lipitor -) 20 mg PO HS [facility] Last Admin: 07/13/16 21:30 Dose: 20 mg Cyanocobalamin (Vitamin B12 -) 1,000 mcg PO DAILY [facility] Last Admin: 07/14/16 10:30 Dose: 1,000 mcg Epoetin Dawood (Procrit -) 10,000 unit SQ Q7D [facility] Last Admin: 07/10/16 18:45 Dose: 10,000 unit Heparin Sodium (Porcine) (Heparin -) 5,000 unit SQ BID [facility] Last Admin: 07/14/16 10:31 Dose: 5,000 unit Furosemide 100 mg/ Dextrose 50 mls @ 2.5 mls/hr IVPB TITR JESÚS; 5 MG/HR PRN Reason: Protocol Last Admin: 07/13/16 19:32 Dose: 2.5 mls/hr Insulin Aspart (Novolog Vial Sliding Scale -) 1 vial SQ ACHS [facility] PRN Reason: Protocol Last Admin: 07/14/16 06:43 Dose: Not Given Insulin Detemir (Levemir Vial) 10 units SQ DAILY@0700 [facility] Last Admin: 07/14/16 06:43 Dose: 10 units Isosorbide Mononitrate (Imdur -) 30 mg PO DAILY [facility] Last Admin: 07/14/16 10:30 Dose: 30 mg Levothyroxine Sodium (Synthroid -) 50 mcg PO DAILY@0700 [facility] Last Admin: 07/14/16 06:43 Dose: 50 mcg Lidocaine (Lidoderm Patch -) 1 patch TP DAILY [facility] Last Admin: 07/14/16 10:30 Dose: 1 patch Metoclopramide HCl (Reglan -) 10 mg PO ACHS [facility] Last Admin: 07/14/16 06:43 Dose: 10 mg Metoprolol Succinate (Toprol Xl -) 25 mg PO DAILY [facility] Last Admin: 07/14/16 10:30 Dose: 25 mg Nystatin (Mycostatin Cream -) 1 applic TP BID [facility] Last Admin: 07/14/16 10:31 Dose: 1 applic Oxycodone HCl (Roxicodone -) 5 mg PO Q4H PRN PRN Reason: PAIN LEVEL 6-10 Last Admin: 07/14/16 09:36 Dose: 5 mg Pantoprazole Sodium (Protonix -) 20 mg PO DAILY [facility] Last Admin: 07/14/16 10:30 Dose: 20 mg Polyethylene Glycol (Miralax (For Daily Use) -) 17 gm PO DAILY [facility] Last Admin: 07/14/16 10:31 Dose: 17 grams Potassium Phos/Sodium Phos (Phos-Nak Packet -) 1 packet PO TID [facility] Senna/Docusate Sodium (Pericolace -) 2 tablet PO HS [facility] Last Admin: 07/13/16 21:30 Dose: 2 tablet Simethicone (Mylicon -) 80 mg PO QID [facility] Last Admin: 07/14/16 10:30 Dose: 80 mg A/P Left Foot Gangrene s/p L BKA Chronic Hypoxic and Hypercapneic Respiratory Failure Acute on Chronic Renal Failure Morbid Obesity MIRIAM/OHS Volume Overload - continue lasix gtt - monitor urine output, creatinine - O2 to keep SpO2 >88% - pain control - incentive spirometry - BiPAP at night and PRN during day - DVT prophylaxis
[2016-07-14] MEDS: NAPH,MB-DB/K PH,MBDB POWDER PACKET PO SCH ×2 (13:22→22:15)
[2016-07-14] MEDS ORDERED: POLYETHYLENE GLYCOL 3350 119 GM BTL PO ONE (16:00)
[2016-07-14] MEDS: FUROSEMIDE INJECTION 100 MG in DEXTROSE 5%-WATER - 40 ML IVPB SCH ×2 (17:24→22:00)
[2016-07-14] MEDS: SENNOSIDES/DOCUSATE COMBO (SENNA PLUS) TABLET (UD) PO SCH (22:13)
[2016-07-14] MEDS: ATORVASTATIN CA 20 MG TABLET (FP) PO SCH (22:13)
[2016-07-14] MEDS ORDERED: DOCUSATE SODIUM 100 MG CAPSULE (FP) PO PRN (22:49)
--- NOTE | 2016-07-14 22:51 | PN ---
Progress Note, Physician Chief Complaint: Pain in the left lower extremity, and constipation, still receiving the Lasix drip for Chf excerbation, she had amputation below knee for the left lower extremity, she is diabetic History of Present Illness: 71 yo female which is also legally blind was admitted for left lower extremity gangrenous wound. The patient underwent amputation below the knee of the left lower extremity. The patient is fluid overloaded but also in renal failure and needs to be diuresed. For this purpose she was started on a LAsix drip - Current Medication List Current Medications: Active Medications Aspirin (Ecotrin -) 81 mg PO DAILY [facility] Last Admin: 07/14/16 10:30 Dose: 81 mg Atorvastatin Calcium (Lipitor -) 20 mg PO HS [facility] Last Admin: 07/14/16 22:13 Dose: 20 mg Cyanocobalamin (Vitamin B12 -) 1,000 mcg PO DAILY [facility] Last Admin: 07/14/16 10:30 Dose: 1,000 mcg Docusate Sodium (Colace -) 100 mg PO BID PRN PRN Reason: CONSTIPATION Epoetin Dawood (Procrit -) 10,000 unit SQ Q7D [facility] Last Admin: 07/10/16 18:45 Dose: 10,000 unit Heparin Sodium (Porcine) (Heparin -) 5,000 unit SQ BID [facility] Last Admin: 07/14/16 22:14 Dose: 5,000 unit Furosemide 100 mg/ Dextrose 50 mls @ 2.5 mls/hr IVPB TITR JESÚS; 5 MG/HR PRN Reason: Protocol Last Admin: 07/14/16 17:24 Dose: Not Given Insulin Aspart (Novolog Vial Sliding Scale -) 1 vial SQ ACHS [facility] PRN Reason: Protocol Last Admin: 07/14/16 22:14 Dose: Not Given Insulin Detemir (Levemir Vial) 10 units SQ DAILY@0700 [facility] Last Admin: 07/14/16 06:43 Dose: 10 units Isosorbide Mononitrate (Imdur -) 30 mg PO DAILY [facility] Last Admin: 07/14/16 10:30 Dose: 30 mg Levothyroxine Sodium (Synthroid -) 50 mcg PO DAILY@0700 [facility] Last Admin: 07/14/16 06:43 Dose: 50 mcg Lidocaine (Lidoderm Patch -) 1 patch TP DAILY [facility] Last Admin: 07/14/16 10:30 Dose: 1 patch Metoclopramide HCl (Reglan -) 10 mg PO ACHS [facility] Last Admin: 07/14/16 22:13 Dose: 10 mg Metoprolol Succinate (Toprol Xl -) 25 mg PO DAILY [facility] Last Admin: 07/14/16 10:30 Dose: 25 mg Nystatin (Mycostatin Cream -) 1 applic TP BID [facility] Last Admin: 07/14/16 22:14 Dose: 1 applic Oxycodone HCl (Roxicodone -) 5 mg PO Q4H PRN PRN Reason: PAIN LEVEL 6-10 Last Admin: 07/14/16 13:23 Dose: 5 mg Pantoprazole Sodium (Protonix -) 20 mg PO DAILY [facility] Last Admin: 07/14/16 10:30 Dose: 20 mg Polyethylene Glycol (Miralax (For Daily Use) -) 17 gm PO DAILY [facility] Last Admin: 07/14/16 10:31 Dose: 17 grams Potassium Phos/Sodium Phos (Phos-Nak Packet -) 1 packet PO TID [facility] Last Admin: 07/14/16 22:15 Dose: 1 packet Senna/Docusate Sodium (Pericolace -) 2 tablet PO HS [facility] Last Admin: 07/14/16 22:13 Dose: 2 tablet Simethicone (Mylicon -) 80 mg PO QID [facility] Last Admin: 07/14/16 22:13 Dose: 80 mg - Objective Vital Signs: Vital Signs Temperature 98.8 F 07/14/16 17:00 Pulse Rate 78 07/14/16 17:00 Respiratory Rate 18 07/14/16 17:00 Blood Pressure 139/65 07/14/16 17:00 O2 Sat by Pulse Oximetry (%) 99 07/14/16 17:36 Constitutional: Yes: No Distress, Anxious Eyes: Yes: Conjunctiva Clear, EOM Intact, Other (blind) HENT: Yes: Atraumatic, Normocephalic Neck: Yes: Supple, Trachea Midline Cardiovascular: Yes: Regular Rate and Rhythm, S1, S2 Respiratory: Yes: Regular, CTA Bilaterally, Other (crepitations at bothe bases) Gastrointestinal: Yes: Normal Bowel Sounds, Soft, Abdomen, Obese, Other (edema of the lower abdominal wall, bowel sonunds present in all quadrants). No: Ascites, Hepatomegaly, Splenomegaly, Tenderness Genitourinary: Yes: Graf Present Extremities: Yes: Other (s/adela mputations of the right 1st toe and left BKA). No: Calf Tenderness Edema: Yes Integumentary: Yes: Other (dry skin with hyperkeratotic areas) Wound/Incision: Yes: Other (amputtaion of the right 1st toe) Neurological: Yes: Alert, Oriented, Other (blind) ...Motor Strength: WNL (can not move the left lower extremity) Psychiatric: Yes: Alert, Oriented Labs: CBC, BMP 07/13/16 05:20 07/14/16 06:00 INR, PTT INR 1.28 (0.82-1.09) H 07/03/16 05:45 Problem List - Problems (1) CHF (congestive heart failure) Assessment/Plan: continue lasix drip Code(s): I50.9 - HEART FAILURE, UNSPECIFIED Qualifiers: Congestive heart failure type: unspecified congestive heart failure type Congestive heart failure chronicity: acute on chronic Qualified Code(s ): I50.9 - Heart failure, unspecified (2) Diabetes Assessment/Plan: accuchecks Code(s): E11.9 - TYPE 2 DIABETES MELLITUS WITHOUT COMPLICATIONS Qualifiers: Diabetes mellitus complication detail: with diabetic retinopathy (3) Constipation by delayed colonic transit Assessment/Plan: miralax 17 gm po once Code(s): K59.01 - SLOW TRANSIT CONSTIPATION (4) Acute on chronic renal failure Assessment/Plan: gentle diuresis and follow up of the renal function Code(s): N17.9 - ACUTE KIDNEY FAILURE, UNSPECIFIED N18.9 - CHRONIC KIDNEY DISEASE, UNSPECIFIED (5) Complete below knee amputation of left lower extremity Assessment/Plan: pain management and wound care as per vascular surgery Code(s): S88.112A - COMPLETE TRAUM AMP AT LEV BETW KN AND ANKL, L LOW LEG, INIT
[2016-07-15 06:11] LABS: SERUM IRON 37 ug/dL (27-139); TOTAL IRON BINDING CAPACITY 171 ug/dL (250-450); UIBC 134 ug/dL (118-369)
[2016-07-15] MEDS: INSULIN SLIDING SCALE (NOVOLOG) 1 VIAL SQ SCH ×4 (06:16→22:00)
[2016-07-15] MEDS: INSULIN DETEMIR 100 UNITS/ML MDV SQ SCH (06:17)
[2016-07-15] MEDS: NAPH,MB-DB/K PH,MBDB POWDER PACKET PO SCH ×3 (06:17→21:54)
[2016-07-15] MEDS: LEVOTHYROXINE NA 50 MCG TABLET (FP) PO SCH (06:17)
[2016-07-15] MEDS: METOCLOPRAMIDE HCL 10 MG TABLET (FP) PO SCH ×4 (06:17→21:52)
[2016-07-15 07:46] LABS: BASOPHIL 0.9 % (0-2.0); EOSINOPHIL 4.8 % (0-4.5); MCH 28.6 pg (25.7-33.7); MCHC 31.8 g/dl (32.0-36.0); MEAN CELL VOLUME 90.2 fl (80-96); MEAN PLT VOLUME 9.1 fl (7.5-11.1); NEUTROPHILS 68.7 % (42.8-82.8); PLATELET COUNT 155 K/MM3 (134-434); WHITE BLOOD COUNT 4.8 K/mm3 (4.0-10.0)
[2016-07-15 08:04] LABS: CALCIUM 8.3 mg/dL (8.5-10.1)
[2016-07-15 08:10] LABS: ALK PHOS 100 U/L (45-117); ANION GAP 9 (8-16); BILIRUBIN,TOTAL 0.7 mg/dL (0.2-1.0); CO2 35 mmol/L (21-32); CREATININE 1.2 mg/dL (0.55-1.02); GLUCOSE,RANDOM 95 mg/dL (74-106); SGOT/AST 7 U/L (15-37); SGPT/ALT < 6 U/L (12-78); TOT PROT 5.8 g/dl (6.4-8.2)
--- NOTE | 2016-07-15 09:15 | PN ---
Progress Note, Physician Chief Complaint: chf History of Present Illness: was briefly sob this am--resolved no cp, palpit legs swollen - Current Medication List Current Medications: Active Medications Aspirin (Ecotrin -) 81 mg PO DAILY [facility] Last Admin: 07/14/16 10:30 Dose: 81 mg Atorvastatin Calcium (Lipitor -) 20 mg PO HS [facility] Last Admin: 07/14/16 22:13 Dose: 20 mg Cyanocobalamin (Vitamin B12 -) 1,000 mcg PO DAILY [facility] Last Admin: 07/14/16 10:30 Dose: 1,000 mcg Docusate Sodium (Colace -) 100 mg PO BID PRN PRN Reason: CONSTIPATION Epoetin Dawood (Procrit -) 10,000 unit SQ Q7D [facility] Last Admin: 07/10/16 18:45 Dose: 10,000 unit Heparin Sodium (Porcine) (Heparin -) 5,000 unit SQ BID [facility] Last Admin: 07/14/16 22:14 Dose: 5,000 unit Furosemide 100 mg/ Dextrose 50 mls @ 2.5 mls/hr IVPB TITR JESÚS; 5 MG/HR PRN Reason: Protocol Last Admin: 07/14/16 22:00 Dose: 2.5 mls/hr Insulin Aspart (Novolog Vial Sliding Scale -) 1 vial SQ [facility] PRN Reason: Protocol Last Admin: 07/15/16 06:16 Dose: Not Given Insulin Detemir (Levemir Vial) 10 units SQ DAILY@0700 [facility] Last Admin: 07/15/16 06:17 Dose: 10 units Isosorbide Mononitrate (Imdur -) 30 mg PO DAILY [facility] Last Admin: 07/14/16 10:30 Dose: 30 mg Levothyroxine Sodium (Synthroid -) 50 mcg PO DAILY@0700 [facility] Last Admin: 07/15/16 06:17 Dose: 50 mcg Lidocaine (Lidoderm Patch -) 1 patch TP DAILY [facility] Last Admin: 07/14/16 10:30 Dose: 1 patch Metoclopramide HCl (Reglan -) 10 mg PO ACHS [facility] Last Admin: 07/15/16 06:17 Dose: 10 mg Metoprolol Succinate (Toprol Xl -) 25 mg PO DAILY [facility] Last Admin: 07/14/16 10:30 Dose: 25 mg Nystatin (Mycostatin Cream -) 1 applic TP BID [facility] Last Admin: 07/14/16 22:14 Dose: 1 applic Oxycodone HCl (Roxicodone -) 5 mg PO Q4H PRN PRN Reason: PAIN LEVEL 6-10 Last Admin: 07/14/16 13:23 Dose: 5 mg Pantoprazole Sodium (Protonix -) 20 mg PO DAILY [facility] Last Admin: 07/14/16 10:30 Dose: 20 mg Polyethylene Glycol (Miralax (For Daily Use) -) 17 gm PO DAILY [facility] Last Admin: 07/14/16 10:31 Dose: 17 grams Potassium Phos/Sodium Phos (Phos-Nak Packet -) 1 packet PO TID [facility] Last Admin: 07/15/16 06:17 Dose: 1 packet Senna/Docusate Sodium (Pericolace -) 2 tablet PO HS [facility] Last Admin: 07/14/16 22:13 Dose: 2 tablet Simethicone (Mylicon -) 80 mg PO QID [facility] Last Admin: 07/14/16 22:13 Dose: 80 mg - Objective Vital Signs: Vital Signs Temperature 97.3 F L 07/15/16 08:10 Pulse Rate 82 07/15/16 08:10 Respiratory Rate 20 07/15/16 08:10 Blood Pressure 109/66 07/15/16 08:10 O2 Sat by Pulse Oximetry (%) 99 07/15/16 08:10 Constitutional: Yes: No Distress, Calm, Obese Cardiovascular: Yes: Regular Rate and Rhythm, S1, S2. No: JVD (tds habitus ++) , Gallop, Murmur Respiratory: Yes: Regular, CTA Bilaterally. No: Accessory Muscle Use, Rales, Wheezes Extremities: No: Cold Edema: Yes (thighs nonpitting R > L) Neurological: Yes: Alert. No: Oriented, Seizure Psychiatric: No: Agitated Labs: CBC, BMP 07/15/16 05:35 07/15/16 05:35 INR, PTT INR 1.28 (0.82-1.09) H 07/03/16 05:45 - ....Imaging EKG: Other (tele: NSR) Assessment/Plan Echo 07/01/2016: Mild decr EF. paradoxical septal motion with mild HK of anteroseptum. RV not seen. 1+ mr/tr. mild (although MG only 12 mmHg). Echo 06/2015: mild-mod decr EF--global; nl RV; mild LAE; mild-mod MR/TR; RVSP 30- 40; small peric effusion; + pleural eff echo 12/06/15: mild lvh. nl lv/rv, Septal motion c/w RV volume overload. Ab diastology. mild cheryl, mild-mod mr, mild as, mod-sev tr, rvsp 50, mod pericardial eff, no tamponade. pleural effusion. echo 12/11/15: focused, Nl lv. trivial pericardial eff. Pleural effusion. EKG 06/27/16: sr, nl intervals, nonspecific tw changes, no sig change prior a/p: 71 yo with h/o HFpEF, CAD s/p [place], HTN, HL, pHTN, MIRIAM, o2 dep't copd, CKD, IDDM, hypothyroid and chronic LLE cellulitis, here with non healing left foot wound/gangrene. chronic foot wound, gangrene, now s/p bka 07/03/16: -vascular, ID following chronic HFpEF/pulm HTN/venous ins'y/acute on chronic hypoxic and hypercapneic resp failure: - pt with volume overload during mult prior admits here--vol status is always [id number]-vc-qfcaaltesd to assess given morbidly obese neck hiding JVD, chronic venous ins'y/lymphedema of legs, and chronically very abnormal CXR markings due to overlying soft tissue - suspect chronic RV failure syndrome clinically, with evidence of this reported intermittently on serial echoes here over the years - cr was above baseline, possible due to infection so had been holding diuretics but then had long NSVT on tele ? sign of incr'd filling pressures so started on lasix gtt. Cr now back to baseline. Will attempt to turf manager her vol status with wt as when she was here over past few months her wt was as low as 270s. -07/15: wt down on standing scale to 277, from 301 (3/6); creat all the way down to 1.2 (from 2.9 peak here) -remains massively edematous in thighs, + sob this am ? pulm vs chf (now resolved) -cont lasix gtt as doing, one dose 40 IVP lasix today -check BNP, monitor wts - pt with mult RFs for PE but creat prohibitive for IV contrast, and she cannot currently cooperate with V/Q; d/w'd dr daily who feels cause of her current decompensation is more likely sec to exacerbation of her chronic lung disease PSVT: -likely brief run of ATach on tele 07/01. no recurrence. CAD, h/o NSTEMI: -has previously refused stress tests. h/o NSTEMI x 2 (2012, 2014) in setting of demand (sepsis/anemia) -MATEO deferred previously due to labile creat's--no change; -cath previously deferred due to: pt preference; hi risk of vascular complications (obese habitus), hi risk of BERNARDINO, and h/o recurrent anemia, possible occult GIB -currently without anginal sx's. EKG unchanged. Con't statin, BB, asa, imdur CKD/michael: -plan as above, cr improved VTach: -17 beat run of NSVT on tele -K/Mag repletion as doing -changed coreg 3.125 to toprol 25 qd -bradycardia on tele earlier--was persistent so coreg dose decr'd but pt likely with hi vagal tone persistently given known obesity/hypoventilation syndrome and laying in bed sluggishly for most (all?) of this admit -thus far tele with no signif persistent VT or path shahzad's anemia: -chronic, baseline runs 8s-9s; -freq acute drops/PRBCs in past; currently near baseline HTN: -controlled gastroparesis: -s/p ngt, now removed, tolerating food -GI following
[2016-07-15] MEDS ORDERED: PT OWN MED DRAWER 7, Y5N ONE (09:41)
[2016-07-15] MEDS: HEPARIN NA (PORCINE) 5,000 UNITS/ML 1ML VIAL SQ SCH ×2 (09:45→21:53)
[2016-07-15] MEDS: LIDOCAINE 5% TOPICAL PATCH TP SCH (09:45)
[2016-07-15] MEDS: PANTOPRAZOLE 20 MG TABLET (FP) PO SCH (09:46)
[2016-07-15] MEDS: CYANOCOBALAMIN 1,000 MCG TABLET (FP) PO SCH (09:46)
[2016-07-15] MEDS: ASPIRIN COATED 81 MG TABLET.EC PO SCH (09:46)
[2016-07-15] MEDS: ISOSORBIDE MONONITRATE 30 MG TAB.SR.24H (FP) PO SCH (09:46)
[2016-07-15] MEDS: METOPROLOL SUCCINATE 25 MG TAB.SR.24H (FP) PO SCH (09:46)
[2016-07-15] MEDS: SIMETHICONE 80 MG TAB.CHEW (FP) PO SCH ×4 (09:46→21:52)
[2016-07-15] MEDS: oxyCODONE HCL 5 MG TABLET PO PRN (11:09)
[2016-07-15] MEDS: POLYETHYLENE GLYCOL 3350 119 GM BTL PO SCH ×2 (12:03→22:00)
--- NOTE | 2016-07-15 12:03 | PN ---
Progress Note, Physician History of Present Illness: pulmonary alert,episode of sob earlier ,resolved. pt remains on lasix drip - Current Medication List Current Medications: Active Medications Aspirin (Ecotrin -) 81 mg PO DAILY [facility] Last Admin: 07/15/16 09:46 Dose: 81 mg Atorvastatin Calcium (Lipitor -) 20 mg PO HS [facility] Last Admin: 07/14/16 22:13 Dose: 20 mg Cyanocobalamin (Vitamin B12 -) 1,000 mcg PO DAILY [facility] Last Admin: 07/15/16 09:46 Dose: 1,000 mcg Docusate Sodium (Colace -) 100 mg PO BID PRN PRN Reason: CONSTIPATION Epoetin Dawood (Procrit -) 10,000 unit SQ Q7D [facility] Last Admin: 07/10/16 18:45 Dose: 10,000 unit Heparin Sodium (Porcine) (Heparin -) 5,000 unit SQ BID [facility] Last Admin: 07/15/16 09:45 Dose: 5,000 unit Furosemide 100 mg/ Dextrose 50 mls @ 2.5 mls/hr IVPB TITR JESÚS; 5 MG/HR PRN Reason: Protocol Last Admin: 07/14/16 22:00 Dose: 2.5 mls/hr Insulin Aspart (Novolog Vial Sliding Scale -) 1 vial SQ [facility] PRN Reason: Protocol Last Admin: 07/15/16 11:13 Dose: Not Given Insulin Detemir (Levemir Vial) 10 units SQ DAILY@0700 [facility] Last Admin: 07/15/16 06:17 Dose: 10 units Isosorbide Mononitrate (Imdur -) 30 mg PO DAILY [facility] Last Admin: 07/15/16 09:46 Dose: 30 mg Levothyroxine Sodium (Synthroid -) 50 mcg PO DAILY@0700 [facility] Last Admin: 07/15/16 06:17 Dose: 50 mcg Lidocaine (Lidoderm Patch -) 1 patch TP DAILY [facility] Last Admin: 07/15/16 09:45 Dose: 1 patch Metoclopramide HCl (Reglan -) 10 mg PO ACHS [facility] Last Admin: 07/15/16 11:13 Dose: 10 mg Metoprolol Succinate (Toprol Xl -) 25 mg PO DAILY [facility] Last Admin: 07/15/16 09:46 Dose: 25 mg Nystatin (Mycostatin Cream -) 1 applic TP BID [facility] Last Admin: 07/14/16 22:14 Dose: 1 applic Oxycodone HCl (Roxicodone -) 5 mg PO Q4H PRN PRN Reason: PAIN LEVEL 6-10 Last Admin: 07/15/16 11:09 Dose: 5 mg Pantoprazole Sodium (Protonix -) 20 mg PO DAILY [facility] Last Admin: 07/15/16 09:46 Dose: 20 mg Polyethylene Glycol (Miralax (For Daily Use) -) 17 gm PO DAILY [facility] Last Admin: 07/14/16 10:31 Dose: 17 grams Potassium Phos/Sodium Phos (Phos-Nak Packet -) 1 packet PO TID [facility] Last Admin: 07/15/16 06:17 Dose: 1 packet Senna/Docusate Sodium (Pericolace -) 2 tablet PO HS [facility] Last Admin: 07/14/16 22:13 Dose: 2 tablet Simethicone (Mylicon -) 80 mg PO QID [facility] Last Admin: 07/15/16 09:46 Dose: 80 mg - Objective Vital Signs: Vital Signs Temperature 97.3 F L 07/15/16 08:10 Pulse Rate 82 07/15/16 08:10 Respiratory Rate 20 07/15/16 08:10 Blood Pressure 109/66 07/15/16 08:10 O2 Sat by Pulse Oximetry (%) 99 07/15/16 08:10 Constitutional: Yes: Calm, Obese Eyes: Yes: WNL HENT: Yes: WNL Neck: Yes: WNL Cardiovascular: Yes: Regular Rate and Rhythm, S1, S2 Respiratory: Yes: Diminished Gastrointestinal: Yes: Normal Bowel Sounds, Soft Extremities: Yes: Amputation (left bka) Edema: Yes Labs: CBC, BMP 07/15/16 05:35 07/15/16 05:35 INR, PTT INR 1.28 (0.82-1.09) H 07/03/16 05:45 Problem List - Problems (1) Diabetes Code(s): E11.9 - TYPE 2 DIABETES MELLITUS WITHOUT COMPLICATIONS Qualifiers: Diabetes mellitus complication detail: with diabetic retinopathy (2) Fluid overload Code(s): E87.70 - FLUID OVERLOAD, UNSPECIFIED (3) Pulmonary hypertension Code(s): I27.2 - OTHER SECONDARY PULMONARY HYPERTENSION (4) Acute and chronic respiratory failure with hypercapnia Code(s): J96.22 - ACUTE AND CHRONIC RESPIRATORY FAILURE WITH HYPERCAPNIA (5) Acute on chronic systolic (congestive) heart failure Code(s): I50.23 - ACUTE ON CHRONIC SYSTOLIC (CONGESTIVE) HEART FAILURE (6) Anemia Code(s): D64.9 - ANEMIA, UNSPECIFIED Qualifiers: Anemia type: unspecified type Qualified Code(s): D64.9 - Anemia, unspecified (7) CAD (coronary artery disease) Code(s): I25.10 - ATHSCL HEART DISEASE OF [place] CORONARY ARTERY W/O ANG PCTRS Qualifiers: Coronary Disease-Associated Artery/Lesion type: unspecified vessel or lesion type [place] vs. transplanted heart: [place] heart Associated angina: without angina Qualified Code(s): I25.10 - Atherosclerotic heart disease of [place] coronary artery without angina pectoris (8) COPD (chronic obstructive pulmonary disease) Code(s): J44.9 - CHRONIC OBSTRUCTIVE PULMONARY DISEASE, UNSPECIFIED Qualifiers : COPD type: unspecified COPD Qualified Code(s): J44.9 - Chronic obstructive pulmonary disease, unspecified (9) Morbid obesity Code(s): E66.01 - MORBID (SEVERE) OBESITY DUE TO EXCESS CALORIES Qualifiers: Obesity type: due to excess calories Qualified Code(s): E66.01 - Morbid (severe) obesity due to excess calories (10) MIRIAM (obstructive sleep apnea) Code(s): G47.33 - OBSTRUCTIVE SLEEP APNEA (ADULT) (PEDIATRIC) Assessment/Plan Problem List - Problems (1) Acute on chronic renal failure Code(s): N17.9 - ACUTE KIDNEY FAILURE, UNSPECIFIED N18.9 - CHRONIC KIDNEY DISEASE, UNSPECIFIED (2) CO2 retention Code(s): E87.2 - ACIDOSIS (3) Diabetes Code(s): E11.9 - TYPE 2 DIABETES MELLITUS WITHOUT COMPLICATIONS (4) Fluid overload Code(s): E87.70 - FLUID OVERLOAD, UNSPECIFIED (5) Gangrene Code(s): I96 - GANGRENE, NOT ELSEWHERE CLASSIFIED LIKELY OSAS ACUTE ON CHRONIC HYPOXEMIC/HYPERCAPNEIC RESPIRATORY FAILURE Assessment/Plan INHALED BRONCHODILATORS Cont LASIX DRIP O2 DVT PROPHYLAXSIS BIPAP PRN f/u CHEST X-RAYs MONITOR LYTES,RENAL FUNCTION DR LANDA
[2016-07-15] MEDS ORDERED: FUROSEMIDE 40 MG/4 ML INJECTABLE VIAL IVPUSH ONE (12:45)
[2016-07-15] MEDS: NYSTATIN 100,000 UNIT/GM TOPICAL CREAM 15 GM TUBE TP SCH ×2 (14:12→21:54)
[2016-07-15] MEDS ORDERED: OXYCODONE/APAP 5/325MG COMBO TABLET PO ONE (14:29)
--- NOTE | 2016-07-15 14:29 | PN ---
Progress Note (short form) - Note Progress Note: Renal follow up for CRISTELA on CKD Pt seen and examined at the bedside no complaints, no sob or chest pain Vital Signs Temperature 98.2 F 07/13/16 06:08 Pulse Rate 75 07/13/16 06:08 Respiratory Rate 18 07/13/16 06:08 Blood Pressure 123/67 07/13/16 06:08 O2 Sat by Pulse Oximetry (%) 98 07/13/16 05:56 Intake & Output 07/10/16 07/11/16 07/12/16 07/13/16 23:59 23:59 23:59 23:59 Intake Total 160 470 540 150 Balance 160 470 540 150 Weight 285 lb 3.2 oz 277 lb 12.8 oz 278 lb 6.4 oz Gen: NAD CVS: RRR, No M/R Lungs: Dec BS throughout (anterior exam) Abd: soft, Obese, no tenderness Ext: 2+ edema extending to thighs CBC, BMP 07/13/16 05:20 07/13/16 05:20 Current Medications Al Hydroxide/Mg Hydroxide (Mylanta Oral Suspension -) 30 ml PO BID [facility] Last Admin: 07/13/16 10:35 Dose: 30 ml Aspirin (Ecotrin -) 81 mg PO DAILY [facility] Last Admin: 07/13/16 10:34 Dose: 81 mg Atorvastatin Calcium (Lipitor -) 20 mg PO HS [facility] Last Admin: 07/12/16 21:18 Dose: 20 mg Cyanocobalamin (Vitamin B12 -) 1,000 mcg PO DAILY [facility] Last Admin: 07/13/16 10:33 Dose: 1,000 mcg Epoetin Dawood (Procrit -) 10,000 unit SQ Q7D [facility] Last Admin: 07/10/16 18:45 Dose: 10,000 unit Heparin Sodium (Porcine) (Heparin -) 5,000 unit SQ BID [facility] Last Admin: 07/13/16 10:34 Dose: 5,000 unit Furosemide 100 mg/ Dextrose 50 mls @ 2.5 mls/hr IVPB TITR JESÚS; 5 MG/HR PRN Reason: Protocol Last Admin: 07/12/16 22:44 Dose: 2.5 mls/hr Insulin Aspart (Novolog Vial Sliding Scale -) 1 vial SQ ACHS [facility] PRN Reason: Protocol Last Admin: 07/13/16 06:22 Dose: Not Given Insulin Detemir (Levemir Vial) 10 units SQ DAILY@0700 [facility] Last Admin: 07/13/16 06:22 Dose: 10 units Isosorbide Mononitrate (Imdur -) 30 mg PO DAILY [facility] Last Admin: 07/13/16 10:33 Dose: 30 mg Levothyroxine Sodium (Synthroid -) 50 mcg PO DAILY@0700 [facility] Last Admin: 07/13/16 06:22 Dose: 50 mcg Lidocaine (Lidoderm Patch -) 1 patch TP DAILY [facility] Last Admin: 07/13/16 10:34 Dose: 1 patch Metoclopramide HCl (Reglan -) 10 mg PO ACHS [facility] Last Admin: 07/13/16 10:35 Dose: Not Given Metoprolol Succinate (Toprol Xl -) 25 mg PO DAILY [facility] Last Admin: 07/13/16 10:33 Dose: 25 mg Nystatin (Mycostatin Cream -) 1 applic TP BID [facility] Last Admin: 07/13/16 10:35 Dose: 1 applic Oxycodone HCl (Roxicodone -) 5 mg PO Q4H PRN PRN Reason: PAIN LEVEL 6-10 Last Admin: 07/12/16 20:30 Dose: 5 mg Pantoprazole Sodium (Protonix -) 20 mg PO DAILY [facility] Last Admin: 07/13/16 10:33 Dose: 20 mg Polyethylene Glycol (Miralax (For Daily Use) -) 17 gm PO DAILY [facility] Last Admin: 07/13/16 10:34 Dose: 17 grams Senna/Docusate Sodium (Pericolace -) 2 tablet PO HS [facility] Last Admin: 07/12/16 21:19 Dose: 2 tablet Simethicone (Mylicon -) 80 mg PO QID [facility] Last Admin: 07/13/16 10:33 Dose: 80 mg A/p 71 year old Woman with PMhx of CKD, CHF, Morbid Obesity, IDDM, Anemia who presented with worsening LE wounds and found to have CRISTELA with BUN/Cr of 90/2.5. #CRISTELA on CKD with Anasarca Renal function has improved with IV lasix gtt Weights have however stabilized and has not shown significant improvement in the last few days Agree with extra IVP of Lasix at this time would continue diuretics as tolerated monitor serum bicarb levels, if continues to trend up will need ABG as it would be important to differentiate metabolic alkalosis from diuresis vs. respiratory acidosis with metabolic compensation. Thank you Lambert Mcnamara
--- NOTE | 2016-07-15 14:37 | PN ---
Progress Note, Physician Chief Complaint: Pain in the left lower extremity, and constipation, still receiving the Lasix drip for Chf excerbation, she had amputation below knee for the left lower extremity, she is diabetic History of Present Illness: 71 yo female who is also legally blind was admitted for gangrene of the lower extremity, the patient had amputation below the knee of the same extremity and now she is complaining of pain, she denies any dyspnea, and her constipation is persisting - Current Medication List Current Medications: Active Medications Aspirin (Ecotrin -) 81 mg PO DAILY [facility] Last Admin: 07/15/16 09:46 Dose: 81 mg Atorvastatin Calcium (Lipitor -) 20 mg PO HS [facility] Last Admin: 07/14/16 22:13 Dose: 20 mg Cyanocobalamin (Vitamin B12 -) 1,000 mcg PO DAILY [facility] Last Admin: 07/15/16 09:46 Dose: 1,000 mcg Docusate Sodium (Colace -) 100 mg PO BID PRN PRN Reason: CONSTIPATION Epoetin Dawood (Procrit -) 20,000 unit SQ Q7D [facility] Heparin Sodium (Porcine) (Heparin -) 5,000 unit SQ BID [facility] Last Admin: 07/15/16 09:45 Dose: 5,000 unit Furosemide 100 mg/ Dextrose 50 mls @ 2.5 mls/hr IVPB TITR JESÚS; 5 MG/HR PRN Reason: Protocol Last Admin: 07/14/16 22:00 Dose: 2.5 mls/hr Insulin Aspart (Novolog Vial Sliding Scale -) 1 vial SQ [facility] PRN Reason: Protocol Last Admin: 07/15/16 11:13 Dose: Not Given Insulin Detemir (Levemir Vial) 10 units SQ DAILY@0700 [facility] Last Admin: 07/15/16 06:17 Dose: 10 units Isosorbide Mononitrate (Imdur -) 30 mg PO DAILY [facility] Last Admin: 07/15/16 09:46 Dose: 30 mg Levothyroxine Sodium (Synthroid -) 50 mcg PO DAILY@0700 [facility] Last Admin: 07/15/16 06:17 Dose: 50 mcg Lidocaine (Lidoderm Patch -) 1 patch TP DAILY [facility] Last Admin: 07/15/16 09:45 Dose: 1 patch Metoclopramide HCl (Reglan -) 10 mg PO [facility] Last Admin: 07/15/16 11:13 Dose: 10 mg Metoprolol Succinate (Toprol Xl -) 25 mg PO DAILY [facility] Last Admin: 07/15/16 09:46 Dose: 25 mg Nystatin (Mycostatin Cream -) 1 applic TP BID [facility] Last Admin: 07/15/16 14:12 Dose: 1 applic Oxycodone HCl (Roxicodone -) 5 mg PO Q4H PRN PRN Reason: PAIN LEVEL 6-10 Last Admin: 07/15/16 11:09 Dose: 5 mg Oxycodone/Acetaminophen (Percocet 5/325 -) 2 combo PO ONCE ONE Stop: 07/15/16 14:30 Pantoprazole Sodium (Protonix -) 20 mg PO DAILY [facility] Last Admin: 07/15/16 09:46 Dose: 20 mg Polyethylene Glycol (Miralax (For Daily Use) -) 17 gm PO BID [facility] Potassium Phos/Sodium Phos (Phos-Nak Packet -) 1 packet PO TID [facility] Last Admin: 07/15/16 14:01 Dose: 1 packet Senna/Docusate Sodium (Pericolace -) 2 tablet PO HS [facility] Last Admin: 07/14/16 22:13 Dose: 2 tablet Simethicone (Mylicon -) 80 mg PO QID [facility] Last Admin: 07/15/16 14:01 Dose: 80 mg - Objective Vital Signs: Vital Signs Temperature 97.3 F L 07/15/16 08:10 Pulse Rate 82 07/15/16 08:10 Respiratory Rate 20 07/15/16 08:10 Blood Pressure 109/66 07/15/16 08:10 O2 Sat by Pulse Oximetry (%) 99 07/15/16 08:10 Constitutional: Yes: No Distress, Calm Eyes: Yes: Conjunctiva Clear, EOM Intact HENT: Yes: Atraumatic, Normocephalic Neck: Yes: Supple, Trachea Midline Cardiovascular: Yes: Regular Rate and Rhythm, S1, S2 Respiratory: Yes: Regular, CTA Bilaterally Gastrointestinal: Yes: Normal Bowel Sounds, Abdomen, Obese. No: Palpable Mass, Tenderness, Tenderness, Epigastrium Musculoskeletal: Yes: Other (pain in the left ankle) Extremities: Yes: Amputation (left lower extremity) Edema: No Peripheral Pulses WNL: Yes Neurological: Yes: Alert, Oriented Psychiatric: Yes: Alert, Oriented Labs: CBC, BMP 07/15/16 05:35 07/15/16 05:35 INR, PTT INR 1.28 (0.82-1.09) H 07/03/16 05:45 Problem List - Problems (1) CHF (congestive heart failure) Assessment/Plan: lasix jasbir Code(s): I50.9 - HEART FAILURE, UNSPECIFIED Qualifiers: Congestive heart failure type: unspecified congestive heart failure type Congestive heart failure chronicity: acute on chronic Qualified Code(s ): I50.9 - Heart failure, unspecified (2) Diabetes Assessment/Plan: accuchecks Code(s): E11.9 - TYPE 2 DIABETES MELLITUS WITHOUT COMPLICATIONS Qualifiers: Diabetes mellitus complication detail: with diabetic retinopathy (3) Complete below knee amputation of left lower extremity Assessment/Plan: wound management as per surgery Code(s): S88.112A - COMPLETE TRAUM AMP AT [facility], L LOW LEG, INIT (4) Phantom limb pain Assessment/Plan: percocet 10/325 mg po once Code(s): G54.6 - PHANTOM LIMB SYNDROME WITH PAIN
[2016-07-15] MEDS ORDERED: oxyCODONE HCL 5 MG TABLET PO ONE (14:45)
[2016-07-15] MEDS ORDERED: ACETAMINOPHEN 325 MG TABLET (FP) PO ONE (14:45)
[2016-07-15] MEDS: FUROSEMIDE INJECTION 100 MG in DEXTROSE 5%-WATER - 40 ML IVPB SCH (18:43)
[2016-07-15] MEDS ORDERED: EPOETIN ALFA 20,000 UNIT/1 ML VIAL SQ SCH (19:00)
[2016-07-15] MEDS: SENNOSIDES/DOCUSATE COMBO (SENNA PLUS) TABLET (UD) PO SCH (21:52)
[2016-07-15] MEDS: ATORVASTATIN CA 20 MG TABLET (FP) PO SCH (21:53)
[2016-07-16] MEDS: FUROSEMIDE INJECTION 100 MG in DEXTROSE 5%-WATER - 40 ML IVPB SCH (02:49)
[2016-07-16] MEDS: NAPH,MB-DB/K PH,MBDB POWDER PACKET PO SCH ×3 (06:09→21:32)
[2016-07-16] MEDS: INSULIN SLIDING SCALE (NOVOLOG) 1 VIAL SQ SCH ×4 (06:09→22:22)
[2016-07-16] MEDS: METOCLOPRAMIDE HCL 10 MG TABLET (FP) PO SCH ×4 (06:09→21:32)
[2016-07-16] MEDS: LEVOTHYROXINE NA 50 MCG TABLET (FP) PO SCH (06:09)
[2016-07-16] MEDS: INSULIN DETEMIR 100 UNITS/ML MDV SQ SCH (06:45)
[2016-07-16 07:14] LABS: BASOPHIL 0.8 % (0-2.0); EOSINOPHIL 5.1 % (0-4.5); MCH 28.7 pg (25.7-33.7); MCHC 31.8 g/dl (32.0-36.0); MEAN CELL VOLUME 90.3 fl (80-96); PLATELET COUNT 148 K/MM3 (134-434); RDW 17.1 % (11.6-15.6); WHITE BLOOD COUNT 4.3 K/mm3 (4.0-10.0)
[2016-07-16 07:49] LABS: ANION GAP 7 (8-16); CALCIUM 8.1 mg/dL (8.5-10.1); CO2 37 mmol/L (21-32); GLUCOSE,RANDOM 87 mg/dL (74-106); PHOSPHOROUS 2.8 mg/dL (2.5-4.9); SGOT/AST 9 U/L (15-37)
[2016-07-16 07:50] LABS: ALK PHOS 101 U/L (45-117); BILIRUBIN,TOTAL 0.5 mg/dL (0.2-1.0); CREATININE 1.2 mg/dL (0.55-1.02); SGPT/ALT < 6 U/L (12-78); TOT PROT 5.6 g/dl (6.4-8.2)
[2016-07-16] MEDS: SIMETHICONE 80 MG TAB.CHEW (FP) PO SCH ×4 (10:04→21:30)
[2016-07-16] MEDS: HEPARIN NA (PORCINE) 5,000 UNITS/ML 1ML VIAL SQ SCH ×2 (10:04→21:30)
[2016-07-16] MEDS: ISOSORBIDE MONONITRATE 30 MG TAB.SR.24H (FP) PO SCH (10:04)
[2016-07-16] MEDS: ASPIRIN COATED 81 MG TABLET.EC PO SCH (10:04)
[2016-07-16] MEDS: PANTOPRAZOLE 20 MG TABLET (FP) PO SCH (10:04)
[2016-07-16] MEDS: CYANOCOBALAMIN 1,000 MCG TABLET (FP) PO SCH (10:04)
[2016-07-16] MEDS: LIDOCAINE 5% TOPICAL PATCH TP SCH (10:04)
[2016-07-16] MEDS: METOPROLOL SUCCINATE 25 MG TAB.SR.24H (FP) PO SCH (10:04)
[2016-07-16] MEDS: NYSTATIN 100,000 UNIT/GM TOPICAL CREAM 15 GM TUBE TP SCH ×2 (10:05→21:31)
[2016-07-16] MEDS: POLYETHYLENE GLYCOL 3350 119 GM BTL PO SCH ×2 (10:05→21:31)
[2016-07-16] MEDS ORDERED: FUROSEMIDE 40 MG/4 ML INJECTABLE VIAL IVPUSH ONE (10:38)
--- NOTE | 2016-07-16 10:45 | DS ---
Physical Examination Vital Signs: Vital Signs Temperature 97.8 F 07/16/16 02:50 Pulse Rate 75 07/16/16 02:50 Respiratory Rate 20 07/16/16 02:50 Blood Pressure 141/51 07/16/16 02:50 O2 Sat by Pulse Oximetry (%) 96 07/16/16 07:09 Findings/Remarks: in bed in good spirits no new c/o; Hg 8.4 transfuse 1 U then OK to DC to NH if H &H stable less legs pains Constitutional: Yes: No Distress, Calm Eyes: Yes: Conjunctiva Clear HENT: Yes: Atraumatic Neck: Yes: Supple Cardiovascular: Yes: Regular Rate and Rhythm Respiratory: Yes: CTA Bilaterally Gastrointestinal: Yes: Soft. No: Distention, Tenderness Renal/: No: CVA Tenderness - Left, CVA Tenderness - Right Musculoskeletal: No: Joint Stiffness, Joint Swelling Extremities: No: Cold, Cool Edema: Yes (RLE) Integumentary: Yes: Venous Stasis Changes Neurological: Yes: Alert, Oriented Psychiatric: Yes: Alert, Oriented. No: Agitated, Suicidal Ideation Labs: CBC, BMP 07/16/16 05:35 07/16/16 05:35 Discharge Summary Reason For Visit: GANGRENE Current Active Problems Acute on chronic renal failure (Acute) Anasarca associated with disorder of kidney (Acute) Bradycardia (Acute) CO2 retention (Acute) Complete below knee amputation of left lower extremity (Acute) Constipation by delayed colonic transit (Acute) Diabetes (Acute) Fluid overload (Acute) Gangrene (Acute) Hypermagnesemia (Acute) Hypernatremia (Acute) Other fluid overload (Acute) Phantom limb pain (Acute) Pulmonary hypertension (Acute) Renal insufficiency (Acute) Ulcer of foot (Acute) Procedures: Principal: admitted with L foot gangrene Other Procedures: L BKA per surgery; IV antibiotics per ID; IV lasix per cardio and renal; transfused PRBC to keep Hg > 9; pain meds prn Hospital Course: improved with above; Tx to NH and f/u as advised; labs and vascular sx f/u in NH. Condition: Improved - Instructions Diet, Activity, Other Instructions: f/u labs CBC CMP q 1 week mondays falls decubs DVT aspiration PFX wound care with dr Alonso O2 NC/ Bipap as ordered Referrals: Amina Wong [Primary Care Provider] - Gaurav Alonso MD [Staff Physician] - [facility]position[facility] - Home Medications Comprehensive Discharge Medication List: Ambulatory Orders Acetaminophen 650 mg PO Q4H PRN 06/26/16 Albuterol 0.083% Nebulizer Adina [Ventolin 0.083%] 1 neb NEB QID PRN 06/26/16 Aspirin [Aspirin EC] 81 mg PO DAILY 06/26/16 Calcium Acetate 667 mg PO TID 06/26/16 Carvedilol 12.5 mg PO BID 06/26/16 Collagenase Clostridium Hist. [Santyl] 1 applic TP DAILY 06/26/16 Cyanocobalamin [Vitamin B12 -] 1,000 mcg PO DAILY 06/26/16 Epoetin Dawood [Procrit] 10,000 unit IJ WEEKLY 06/26/16 Fluticasone Propionate [Flonase Allergy Relief] 9.9 ml NS DAILY 06/26/16 Folic Acid 1 mg PO DAILY 06/26/16 Gabapentin 300 mg PO HS 06/26/16 Heparin - 5,000 unit SQ BID 06/26/16 Insulin (Levemir) [Levemir Vial] 20 unit SQ DAILY 06/26/16 Insulin Regular [NOVOLIN R VIAL *IVPUSH / ER / ICU Only*] 0 unit SQ QID Isosorbide Mononitrate [Isosorbide Mononitrate ER] 30 mg PO DAILY 06/26/16 Levothyroxine [Synthroid -] 50 mcg PO DAILY 06/26/16 Lidocaine 5% Patch [Lidoderm Patch -] 1 patch TP DAILY 06/26/16 Loratadine 10 mg PO DAILY 06/26/16 Mag Hydrox/Al Hydrox/Simeth [Jigna-Lanta Liquid] 355 ml PO BID 06/26/16 Metoclopramide HCl 5 mg PO TID 06/26/16 Nystatin Cream [Mycostatin] 1 applic TP BID 06/26/16 Oxycodone HCl 5 mg PO Q6H PRN 06/26/16 Polyethylene Glycol 3350 [Purelax] 17 gm PO BID 06/26/16 Sennosides/Docusate Sodium [Senna Laxative Tablet] 2 each PO HS 06/26/16 Simethicone 80 mg PO QID 06/26/16 Simvastatin 40 mg PO HS 06/26/16 Torsemide 20 mg PO DAILY 06/26/16
--- NOTE | 2016-07-16 10:52 | PN ---
Progress Note (short form) - Note Progress Note: Chief Complaint: chf History of Present Illness: no cp, palpit, sob, dizziness legs swollen Current Medications Aspirin (Ecotrin -) 81 mg PO DAILY [facility] Last Admin: 07/16/16 10:04 Dose: 81 mg Atorvastatin Calcium (Lipitor -) 20 mg PO HS [facility] Last Admin: 07/15/16 21:53 Dose: 20 mg Cyanocobalamin (Vitamin B12 -) 1,000 mcg PO DAILY [facility] Last Admin: 07/16/16 10:04 Dose: 1,000 mcg Docusate Sodium (Colace -) 100 mg PO BID PRN PRN Reason: CONSTIPATION Epoetin Dawood (Procrit -) 20,000 unit SQ Q7D [facility] Last Admin: 07/15/16 18:42 Dose: 20,000 unit Furosemide (Lasix Injection -) 40 mg IVPUSH ONCE ONE Stop: 07/16/16 10:39 Heparin Sodium (Porcine) (Heparin -) 5,000 unit SQ BID [facility] Last Admin: 07/16/16 10:04 Dose: 5,000 unit Furosemide 100 mg/ Dextrose 50 mls @ 2.5 mls/hr IVPB TITR JESÚS; 5 MG/HR PRN Reason: Protocol Last Admin: 07/16/16 02:49 Dose: 2.5 mls/hr Insulin Aspart (Novolog Vial Sliding Scale -) 1 vial SQ [facility] PRN Reason: Protocol Last Admin: 07/16/16 06:09 Dose: Not Given Insulin Detemir (Levemir Vial) 10 units SQ DAILY@0700 [facility] Last Admin: 07/16/16 06:45 Dose: 10 units Isosorbide Mononitrate (Imdur -) 30 mg PO DAILY [facility] Last Admin: 07/16/16 10:04 Dose: 30 mg Levothyroxine Sodium (Synthroid -) 50 mcg PO DAILY@0700 [facility] Last Admin: 07/16/16 06:09 Dose: 50 mcg Lidocaine (Lidoderm Patch -) 1 patch TP DAILY [facility] Last Admin: 07/16/16 10:04 Dose: 1 patch Metoclopramide HCl (Reglan -) 10 mg PO ACHS [facility] Last Admin: 07/16/16 10:05 Dose: 10 mg Metoprolol Succinate (Toprol Xl -) 25 mg PO DAILY [facility] Last Admin: 07/16/16 10:04 Dose: 25 mg Nystatin (Mycostatin Cream -) 1 applic TP BID [facility] Last Admin: 07/16/16 10:05 Dose: 1 applic Oxycodone HCl (Roxicodone -) 5 mg PO Q4H PRN PRN Reason: PAIN LEVEL 6-10 Last Admin: 07/15/16 11:09 Dose: 5 mg Pantoprazole Sodium (Protonix -) 20 mg PO DAILY [facility] Last Admin: 07/16/16 10:04 Dose: 20 mg Polyethylene Glycol (Miralax (For Daily Use) -) 17 gm PO BID [facility] Last Admin: 07/16/16 10:05 Dose: 17 gm Potassium Phos/Sodium Phos (Phos-Nak Packet -) 1 packet PO TID [facility] Last Admin: 07/16/16 06:09 Dose: 1 packet Senna/Docusate Sodium (Pericolace -) 2 tablet PO HS [facility] Last Admin: 07/15/16 21:52 Dose: 2 tablet Simethicone (Mylicon -) 80 mg PO QID [facility] Last Admin: 07/16/16 10:04 Dose: 80 mg Vital Signs - 24 hr 07/15/16 07/15/16 07/15/16 15:41 16:07 18:00 Temperature 97.8 F 98.6 F Pulse Rate 73 80 Respiratory 20 20 Rate Blood Pressure 121/52 137/55 O2 Sat by Pulse 99 Oximetry (%) 07/15/16 07/15/16 07/15/16 20:00 20:35 22:00 Temperature 98 F Pulse Rate 71 Respiratory 20 20 Rate Blood Pressure 120/60 O2 Sat by Pulse 99 99 98 Oximetry (%) 07/16/16 07/16/16 07/16/16 00:54 02:50 07:09 Temperature 97.8 F Pulse Rate 75 Respiratory 20 Rate Blood Pressure 141/51 O2 Sat by Pulse 98 96 Oximetry (%) Intake & Output 07/14/16 07/15/16 07/16/16 07/17/16 07:59 07:59 07:59 07:59 Intake Total 390 400 280 Balance 390 400 280 Weight 271 lb 8 oz 277 lb 2 oz 277 lb Constitutional: Yes: No Distress, Calm, Obese Cardiovascular: Yes: Regular Rate and Rhythm, S1, S2. No: JVD (tds habitus ++) , Gallop, Murmur Respiratory: Yes: Regular, CTA Bilaterally. No: Accessory Muscle Use, Rales, Wheezes Extremities: No: Cold Edema: Yes (thighs nonpitting R > L, 1+ dependent edema of torso. ) Neurological: Yes: Alert. No: Oriented, Seizure Psychiatric: No: Agitated Labs: CBC, BMP 07/16/16 05:35 07/16/16 05:35 Laboratory Tests 07/16/16 05:35 Magnesium 2.0 Albumin 2.0 L - ....Imaging EKG: Other (tele: NSR, pvc) Assessment/Plan Echo 07/01/2016: Mild decr EF. paradoxical septal motion with mild HK of anteroseptum. RV not seen. 1+ mr/tr. mild (although MG only 12 mmHg). Echo 06/2015: mild-mod decr EF--global; nl RV; mild LAE; mild-mod MR/TR; RVSP 30- 40; small peric effusion; + pleural eff echo 12/06/15: mild lvh. nl lv/rv, Septal motion c/w RV volume overload. Ab diastology. mild cheryl, mild-mod mr, mild as, mod-sev tr, rvsp 50, mod pericardial eff, no tamponade. pleural effusion. echo 12/11/15: focused, Nl lv. trivial pericardial eff. Pleural effusion. EKG 06/27/16: sr, nl intervals, nonspecific tw changes, no sig change prior a/p: 71 yo with h/o HFpEF, CAD s/p CA, HTN, HL, pHTN, MIRIAM, o2 dep't copd, CKD, IDDM, hypothyroid and chronic LLE cellulitis, here with non healing left foot wound/gangrene. chronic foot wound, gangrene, now s/p bka 07/03/16: -vascular, ID following chronic HFpEF/pulm HTN/venous ins'y/acute on chronic hypoxic and hypercapneic resp failure: - pt with volume overload during mult prior admits here--vol status is always [id number] to assess given morbidly obese neck hiding JVD, chronic venous ins'y/lymphedema of legs, and chronically very abnormal CXR markings due to overlying soft tissue - suspect chronic RV failure syndrome clinically, with evidence of this reported intermittently on serial echoes here over the years - cr was above baseline, possible due to infection so had been holding diuretics but then had long NSVT on tele ? sign of incr'd filling pressures so started on lasix gtt. Cr now back to baseline. Will attempt to education liaison her vol status with wt as when she was here over past few months her wt was as low as 270s. -07/15: wt down on standing scale to 277, from 301 (07/01); creat all the way down to 1.2 (from 2.9 peak here) on lasix gtt and prn IV lasix. -07/16 remains massively edematous in thighs, but chronic problem. Significant improvement in weights and Cr here, if there is plan for discharge she is stable from CV perspective and can continue diuresis as outpatient with torsemide 100 mg daily and weekly creatinine and bed weights. Would give extra dose of IV lasix today prior to discharge after transfusion. - pt with mult RFs for PE but creat prohibitive for IV contrast, and she cannot currently cooperate with V/Q; d/w'd dr daily who feels cause of her current decompensation is more likely sec to exacerbation of her chronic lung disease PSVT: -likely brief run of ATach on tele 07/01. no recurrence. CAD, h/o NSTEMI: -has previously refused stress tests. h/o NSTEMI x 2 (2012, 2014) in setting of demand (sepsis/anemia) -MATEO deferred previously due to labile creat's--no change; -cath previously deferred due to: pt preference; hi risk of vascular complications (obese habitus), hi risk of BERNARDINO, and h/o recurrent anemia, possible occult GIB -currently without anginal sx's. EKG unchanged. Con't statin, BB, asa, imdur CKD/michael: -plan as above, cr improved VTach: -17 beat run of NSVT on tele -K/Mag repletion as doing -changed coreg 3.125 to toprol 25 qd -bradycardia on tele earlier--was persistent so coreg dose decr'd but pt likely with hi vagal tone persistently given known obesity/hypoventilation syndrome and laying in bed sluggishly for most (all?) of this admit -thus far tele with no signif persistent VT or path shahzad's anemia: -chronic, baseline runs 8s-9s; -freq acute drops/PRBCs in past; currently near baseline. plan for transfusion today 07/16 HTN: -controlled gastroparesis: -s/p ngt, now removed, tolerating food -GI following
--- NOTE | 2016-07-16 11:04 | PN ---
Progress Note, Physician History of Present Illness: pulmonary alert,feeling better,-resp distress - Current Medication List Current Medications: Active Medications Aspirin (Ecotrin -) 81 mg PO DAILY [facility] Last Admin: 07/16/16 10:04 Dose: 81 mg Atorvastatin Calcium (Lipitor -) 20 mg PO HS [facility] Last Admin: 07/15/16 21:53 Dose: 20 mg Cyanocobalamin (Vitamin B12 -) 1,000 mcg PO DAILY [facility] Last Admin: 07/16/16 10:04 Dose: 1,000 mcg Docusate Sodium (Colace -) 100 mg PO BID PRN PRN Reason: CONSTIPATION Epoetin Dawood (Procrit -) 20,000 unit SQ Q7D [facility] Last Admin: 07/15/16 18:42 Dose: 20,000 unit Furosemide (Lasix Injection -) 40 mg IVPUSH ONCE ONE Stop: 07/16/16 10:39 Heparin Sodium (Porcine) (Heparin -) 5,000 unit SQ BID [facility] Last Admin: 07/16/16 10:04 Dose: 5,000 unit Furosemide 100 mg/ Dextrose 50 mls @ 2.5 mls/hr IVPB TITR JESÚS; 5 MG/HR PRN Reason: Protocol Last Admin: 07/16/16 02:49 Dose: 2.5 mls/hr Insulin Aspart (Novolog Vial Sliding Scale -) 1 vial SQ [facility] PRN Reason: Protocol Last Admin: 07/16/16 06:09 Dose: Not Given Insulin Detemir (Levemir Vial) 10 units SQ DAILY@0700 [facility] Last Admin: 07/16/16 06:45 Dose: 10 units Isosorbide Mononitrate (Imdur -) 30 mg PO DAILY [facility] Last Admin: 07/16/16 10:04 Dose: 30 mg Levothyroxine Sodium (Synthroid -) 50 mcg PO DAILY@0700 [facility] Last Admin: 07/16/16 06:09 Dose: 50 mcg Lidocaine (Lidoderm Patch -) 1 patch TP DAILY [facility] Last Admin: 07/16/16 10:04 Dose: 1 patch Metoclopramide HCl (Reglan -) 10 mg PO ACHS [facility] Last Admin: 07/16/16 10:05 Dose: 10 mg Metoprolol Succinate (Toprol Xl -) 25 mg PO DAILY [facility] Last Admin: 07/16/16 10:04 Dose: 25 mg Nystatin (Mycostatin Cream -) 1 applic TP BID [facility] Last Admin: 07/16/16 10:05 Dose: 1 applic Oxycodone HCl (Roxicodone -) 5 mg PO Q4H PRN PRN Reason: PAIN LEVEL 6-10 Last Admin: 07/15/16 11:09 Dose: 5 mg Pantoprazole Sodium (Protonix -) 20 mg PO DAILY [facility] Last Admin: 07/16/16 10:04 Dose: 20 mg Polyethylene Glycol (Miralax (For Daily Use) -) 17 gm PO BID [facility] Last Admin: 07/16/16 10:05 Dose: 17 gm Potassium Phos/Sodium Phos (Phos-Nak Packet -) 1 packet PO TID [facility] Last Admin: 07/16/16 06:09 Dose: 1 packet Senna/Docusate Sodium (Pericolace -) 2 tablet PO HS [facility] Last Admin: 07/15/16 21:52 Dose: 2 tablet Simethicone (Mylicon -) 80 mg PO QID [facility] Last Admin: 07/16/16 10:04 Dose: 80 mg - Objective Vital Signs: Vital Signs Temperature 97.8 F 07/16/16 02:50 Pulse Rate 75 07/16/16 02:50 Respiratory Rate 20 07/16/16 02:50 Blood Pressure 141/51 07/16/16 02:50 O2 Sat by Pulse Oximetry (%) 96 07/16/16 07:09 Constitutional: Yes: Calm, Obese Eyes: Yes: WNL HENT: Yes: WNL Neck: Yes: WNL Cardiovascular: Yes: Regular Rate and Rhythm, S1, S2 Respiratory: Yes: Diminished Gastrointestinal: Yes: Normal Bowel Sounds, Soft Extremities: Yes: Amputation (left bka) Edema: Yes Labs: CBC, BMP 07/16/16 05:35 07/16/16 05:35 INR, PTT INR 1.28 (0.82-1.09) H 07/03/16 05:45 Problem List - Problems (1) Diabetes Code(s): E11.9 - TYPE 2 DIABETES MELLITUS WITHOUT COMPLICATIONS Qualifiers: Diabetes mellitus complication detail: with diabetic retinopathy (2) Fluid overload Code(s): E87.70 - FLUID OVERLOAD, UNSPECIFIED (3) Pulmonary hypertension Code(s): I27.2 - OTHER SECONDARY PULMONARY HYPERTENSION (4) Acute and chronic respiratory failure with hypercapnia Code(s): J96.22 - ACUTE AND CHRONIC RESPIRATORY FAILURE WITH HYPERCAPNIA (5) Acute on chronic systolic (congestive) heart failure Code(s): I50.23 - ACUTE ON CHRONIC SYSTOLIC (CONGESTIVE) HEART FAILURE (6) Anemia Code(s): D64.9 - ANEMIA, UNSPECIFIED Qualifiers: Anemia type: unspecified type Qualified Code(s): D64.9 - Anemia, unspecified (7) CAD (coronary artery disease) Code(s): I25.10 - ATHSCL HEART DISEASE OF [place] CORONARY ARTERY W/O ANG PCTRS Qualifiers: Coronary Disease-Associated Artery/Lesion type: unspecified vessel or lesion type [place] vs. transplanted heart: [place] heart Associated angina: without angina Qualified Code(s): I25.10 - Atherosclerotic heart disease of [place] coronary artery without angina pectoris (8) COPD (chronic obstructive pulmonary disease) Code(s): J44.9 - CHRONIC OBSTRUCTIVE PULMONARY DISEASE, UNSPECIFIED Qualifiers : COPD type: unspecified COPD Qualified Code(s): J44.9 - Chronic obstructive pulmonary disease, unspecified (9) Morbid obesity Code(s): E66.01 - MORBID (SEVERE) OBESITY DUE TO EXCESS CALORIES Qualifiers: Obesity type: due to excess calories Qualified Code(s): E66.01 - Morbid (severe) obesity due to excess calories (10) MIRIAM (obstructive sleep apnea) Code(s): G47.33 - OBSTRUCTIVE SLEEP APNEA (ADULT) (PEDIATRIC) Assessment/Plan Problem List - Problems (1) Acute on chronic renal failure Code(s): N17.9 - ACUTE KIDNEY FAILURE, UNSPECIFIED N18.9 - CHRONIC KIDNEY DISEASE, UNSPECIFIED (2) CO2 retention Code(s): E87.2 - ACIDOSIS (3) Diabetes Code(s): E11.9 - TYPE 2 DIABETES MELLITUS WITHOUT COMPLICATIONS (4) Fluid overload Code(s): E87.70 - FLUID OVERLOAD, UNSPECIFIED (5) Gangrene Code(s): I96 - GANGRENE, NOT ELSEWHERE CLASSIFIED LIKELY OSAS ACUTE ON CHRONIC HYPOXEMIC/HYPERCAPNEIC RESPIRATORY FAILURE IMPROVED Assessment/Plan INHALED BRONCHODILATORS LASIX O2 DVT PROPHYLAXSIS BIPAP PRN TRANSFUSE DR LANDA
--- NOTE | 2016-07-16 15:18 | PN ---
Progress Note (short form) - Note Progress Note: Renal follow up for CRISTELA on CKD Pt seen and examined at the bedside no complaints, no sob or chest pain concerned about her anemia good urine output Vital Signs Temperature 98 F 07/16/16 14:21 Pulse Rate 82 07/16/16 14:21 Respiratory Rate 20 07/16/16 14:21 Blood Pressure 136/60 07/16/16 14:21 O2 Sat by Pulse Oximetry (%) 99 07/16/16 12:00 Gen: NAD CVS: RRR, No M/R Lungs: Dec BS throughout (anterior exam) Abd: soft, Obese, no tenderness Ext: 2+ edema extending to thighs CBC, BMP 07/16/16 05:35 07/16/16 05:35 Current Medications Aspirin (Ecotrin -) 81 mg PO DAILY [facility] Last Admin: 07/16/16 10:04 Dose: 81 mg Atorvastatin Calcium (Lipitor -) 20 mg PO HS [facility] Last Admin: 07/15/16 21:53 Dose: 20 mg Cyanocobalamin (Vitamin B12 -) 1,000 mcg PO DAILY [facility] Last Admin: 07/16/16 10:04 Dose: 1,000 mcg Docusate Sodium (Colace -) 100 mg PO BID PRN PRN Reason: CONSTIPATION Epoetin Dawood (Procrit -) 20,000 unit SQ Q7D [facility] Last Admin: 07/15/16 18:42 Dose: 20,000 unit Heparin Sodium (Porcine) (Heparin -) 5,000 unit SQ BID [facility] Last Admin: 07/16/16 10:04 Dose: 5,000 unit Furosemide 100 mg/ Dextrose 50 mls @ 2.5 mls/hr IVPB TITR JESÚS; 5 MG/HR PRN Reason: Protocol Last Admin: 07/16/16 02:49 Dose: 2.5 mls/hr Insulin Aspart (Novolog Vial Sliding Scale -) 1 vial SQ ACHS [facility] PRN Reason: Protocol Last Admin: 07/16/16 12:00 Dose: Not Given Insulin Detemir (Levemir Vial) 10 units SQ DAILY@0700 [facility] Last Admin: 07/16/16 06:45 Dose: 10 units Isosorbide Mononitrate (Imdur -) 30 mg PO DAILY [facility] Last Admin: 07/16/16 10:04 Dose: 30 mg Levothyroxine Sodium (Synthroid -) 50 mcg PO DAILY@0700 [facility] Last Admin: 07/16/16 06:09 Dose: 50 mcg Lidocaine (Lidoderm Patch -) 1 patch TP DAILY [facility] Last Admin: 07/16/16 10:04 Dose: 1 patch Metoclopramide HCl (Reglan -) 10 mg PO ACHS [facility] Last Admin: 07/16/16 10:05 Dose: 10 mg Metoprolol Succinate (Toprol Xl -) 25 mg PO DAILY [facility] Last Admin: 07/16/16 10:04 Dose: 25 mg Nystatin (Mycostatin Cream -) 1 applic TP BID [facility] Last Admin: 07/16/16 10:05 Dose: 1 applic Oxycodone HCl (Roxicodone -) 5 mg PO Q4H PRN PRN Reason: PAIN LEVEL 6-10 Last Admin: 07/15/16 11:09 Dose: 5 mg Pantoprazole Sodium (Protonix -) 20 mg PO DAILY [facility] Last Admin: 07/16/16 10:04 Dose: 20 mg Polyethylene Glycol (Miralax (For Daily Use) -) 17 gm PO BID [facility] Last Admin: 07/16/16 10:05 Dose: 17 gm Potassium Phos/Sodium Phos (Phos-Nak Packet -) 1 packet PO TID [facility] Last Admin: 07/16/16 06:09 Dose: 1 packet Senna/Docusate Sodium (Pericolace -) 2 tablet PO HS [facility] Last Admin: 07/15/16 21:52 Dose: 2 tablet Simethicone (Mylicon -) 80 mg PO QID [facility] Last Admin: 07/16/16 10:04 Dose: 80 mg A/p 71 year old Woman with PMhx of CKD, CHF, Morbid Obesity, IDDM, Anemia who presented with worsening LE wounds and found to have CRISTELA with BUN/Cr of 90/2.5. #CRISTELA on CKD with Anasarca Renal function now improved and stable ok for discharge on oral Torsemide 100mg Daily Trend Renal function as outpatient #Anemia s/p Continue LAILA as outpatient to get PRBC transfusion today #PVD s/p BKA Thank you Lambert Mcnamara
[2016-07-16] MEDS ORDERED: FUROSEMIDE 40 MG/4 ML INJECTABLE VIAL ONE (18:35)
[2016-07-16 19:56] LABS: MCH 28.8 pg (25.7-33.7); MCHC 32.1 g/dl (32.0-36.0); MEAN CELL VOLUME 89.7 fl (80-96); MEAN PLT VOLUME 8.7 fl (7.5-11.1); PLATELET COUNT 165 K/MM3 (134-434); RDW 17.3 % (11.6-15.6); WHITE BLOOD COUNT 5.5 K/mm3 (4.0-10.0)
[2016-07-16] MEDS: SENNOSIDES/DOCUSATE COMBO (SENNA PLUS) TABLET (UD) PO SCH (21:30)
[2016-07-16] MEDS: ATORVASTATIN CA 20 MG TABLET (FP) PO SCH (21:47)
[2016-07-17] MEDS: METOCLOPRAMIDE HCL 10 MG TABLET (FP) PO SCH (06:15)
[2016-07-17] MEDS: NAPH,MB-DB/K PH,MBDB POWDER PACKET PO SCH (06:15)
[2016-07-17] MEDS: LEVOTHYROXINE NA 50 MCG TABLET (FP) PO SCH (06:15)
[2016-07-17] MEDS: INSULIN SLIDING SCALE (NOVOLOG) 1 VIAL SQ SCH (06:15)
[2016-07-17] MEDS: INSULIN DETEMIR 100 UNITS/ML MDV SQ SCH (06:21)
[2016-07-17] MEDS: ASPIRIN COATED 81 MG TABLET.EC PO SCH (09:04)
[2016-07-17] MEDS: ISOSORBIDE MONONITRATE 30 MG TAB.SR.24H (FP) PO SCH (09:04)
[2016-07-17] MEDS: SIMETHICONE 80 MG TAB.CHEW (FP) PO SCH (09:04)
[2016-07-17] MEDS: METOPROLOL SUCCINATE 25 MG TAB.SR.24H (FP) PO SCH (09:04)
[2016-07-17] MEDS: PANTOPRAZOLE 20 MG TABLET (FP) PO SCH (09:04)
[2016-07-17] MEDS: CYANOCOBALAMIN 1,000 MCG TABLET (FP) PO SCH (09:04)
[2016-07-17] MEDS: NYSTATIN 100,000 UNIT/GM TOPICAL CREAM 15 GM TUBE TP SCH (09:06)
[2016-07-17] MEDS: HEPARIN NA (PORCINE) 5,000 UNITS/ML 1ML VIAL SQ SCH (09:06)
[2016-07-17] MEDS: POLYETHYLENE GLYCOL 3350 119 GM BTL PO SCH (09:14)
[2016-07-17] MEDS: LIDOCAINE 5% TOPICAL PATCH TP SCH (09:14)
[2016-07-17] MEDS: oxyCODONE HCL 5 MG TABLET PO PRN (09:15)
--- NOTE | 2016-07-17 10:29 | PN ---
Progress Note, Physician Chief Complaint: in bed nad s/p PRBC; Hg 9.2 awaiting transfer back to OR today. dw staff - Current Medication List Current Medications: Active Medications Aspirin (Ecotrin -) 81 mg PO DAILY [facility] Last Admin: 07/17/16 09:04 Dose: 81 mg Atorvastatin Calcium (Lipitor -) 20 mg PO HS [facility] Last Admin: 07/16/16 21:47 Dose: 20 mg Cyanocobalamin (Vitamin B12 -) 1,000 mcg PO DAILY [facility] Last Admin: 07/17/16 09:04 Dose: 1,000 mcg Docusate Sodium (Colace -) 100 mg PO BID PRN PRN Reason: CONSTIPATION Epoetin Dawood (Procrit -) 20,000 unit SQ Q7D [facility] Last Admin: 07/15/16 18:42 Dose: 20,000 unit Heparin Sodium (Porcine) (Heparin -) 5,000 unit SQ BID [facility] Last Admin: 07/17/16 09:06 Dose: 5,000 unit Furosemide 100 mg/ Dextrose 50 mls @ 2.5 mls/hr IVPB TITR JESÚS; 5 MG/HR PRN Reason: Protocol Last Admin: 07/16/16 02:49 Dose: 2.5 mls/hr Insulin Aspart (Novolog Vial Sliding Scale -) 1 vial SQ [facility] PRN Reason: Protocol Last Admin: 07/17/16 06:15 Dose: Not Given Insulin Detemir (Levemir Vial) 10 units SQ DAILY@0700 [facility] Last Admin: 07/17/16 06:21 Dose: 10 units Isosorbide Mononitrate (Imdur -) 30 mg PO DAILY [facility] Last Admin: 07/17/16 09:04 Dose: 30 mg Levothyroxine Sodium (Synthroid -) 50 mcg PO DAILY@0700 [facility] Last Admin: 07/17/16 06:15 Dose: 50 mcg Lidocaine (Lidoderm Patch -) 1 patch TP DAILY [facility] Last Admin: 07/17/16 09:14 Dose: 1 patch Metoclopramide HCl (Reglan -) 10 mg PO ACHS [facility] Last Admin: 07/17/16 06:15 Dose: 10 mg Metoprolol Succinate (Toprol Xl -) 25 mg PO DAILY [facility] Last Admin: 07/17/16 09:04 Dose: 25 mg Nystatin (Mycostatin Cream -) 1 applic TP BID [facility] Last Admin: 07/17/16 09:06 Dose: 1 applic Oxycodone HCl (Roxicodone -) 5 mg PO Q4H PRN PRN Reason: PAIN LEVEL 6-10 Last Admin: 07/17/16 09:15 Dose: 5 mg Pantoprazole Sodium (Protonix -) 20 mg PO DAILY [facility] Last Admin: 07/17/16 09:04 Dose: 20 mg Polyethylene Glycol (Miralax (For Daily Use) -) 17 gm PO BID [facility] Last Admin: 07/17/16 09:14 Dose: Not Given Potassium Phos/Sodium Phos (Phos-Nak Packet -) 1 packet PO TID [facility] Last Admin: 07/17/16 06:15 Dose: 1 packet Senna/Docusate Sodium (Pericolace -) 2 tablet PO HS [facility] Last Admin: 07/16/16 21:30 Dose: 2 tablet Simethicone (Mylicon -) 80 mg PO QID [facility] Last Admin: 07/17/16 09:04 Dose: 80 mg - Objective Vital Signs: Vital Signs Temperature 98.2 F 07/17/16 05:38 Pulse Rate 84 07/17/16 05:38 Respiratory Rate 19 07/17/16 05:38 Blood Pressure 143/70 07/17/16 05:38 O2 Sat by Pulse Oximetry (%) 99 07/17/16 00:10 Constitutional: Yes: No Distress, Calm Eyes: Yes: Conjunctiva Clear HENT: Yes: Atraumatic Neck: Yes: Supple Cardiovascular: Yes: Regular Rate and Rhythm Respiratory: Yes: CTA Bilaterally Gastrointestinal: Yes: Soft. No: Distention, Tenderness Genitourinary: No: CVA Tenderness - Left, CVA Tenderness - Right, Hematuria Musculoskeletal: No: Joint Stiffness, Joint Swelling Extremities: No: Cold, Cool Edema: Yes (RLE lymphedema) Integumentary: Yes: Venous Stasis Changes (RLE) Neurological: Yes: Alert, Oriented ...Motor Strength: WNL (functional quadriparesis) Psychiatric: Yes: Alert, Oriented. No: Agitated, Suicidal Ideation Labs: CBC, BMP 07/16/16 19:15 07/16/16 05:35 INR, PTT INR 1.28 (0.82-1.09) H 07/03/16 05:45 - ....Imaging Other: Report Reviewed Assessment/Plan The patient is a 71 year old female with significant past medical history of hypertension, hyperlipidemia, diabetes, CAD, CHF, MIx2, COPD (O2 dependent 2L), and renal insufficiency admitted for left lower extremity wound. Nonhealing after ATB and HBO tx. 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
[2016-07-17] MEDS ORDERED: FUROSEMIDE 40 MG/4 ML INJECTABLE VIAL IVPUSH ONE (10:31)
--- NOTE | 2016-07-17 11:13 | PN ---
Progress Note (short form) - Note Progress Note: s: no cp sob palps dizzy. s/p bka 3/8 Current Medications Generic Name Dose Route Start Last Admin Trade Name Cheryle PRN Reason Stop Dose Admin Aspirin 81 mg 07/04/16 10:00 07/17/16 09:04 Ecotrin - PO 81 mg DAILY JESÚS Administration Atorvastatin Calcium 20 mg 07/03/16 22:00 07/16/16 21:47 Lipitor - PO 20 mg HS JESÚS Administration Cyanocobalamin 1,000 mcg 07/04/16 10:00 07/17/16 09:04 Vitamin B12 - PO 1,000 mcg DAILY JESÚS Administration Docusate Sodium 100 mg 07/14/16 22:49 Colace - PO BID PRN CONSTIPATION Epoetin Dawood 20,000 unit 07/15/16 19:00 07/15/16 18:42 Procrit - SQ 20,000 unit Q7D JESÚS Administration Heparin Sodium (Porcine) 5,000 unit 07/03/16 22:00 07/17/16 09:06 Heparin - SQ 5,000 unit BID JESÚS Administration Furosemide 100 mg/ Dextrose 50 mls @ 2.5 mls/hr 07/08/16 18:00 07/16/16 02:49 IVPB 2.5 mls/hr TITR JESÚS Administration Protocol 5 MG/HR Insulin Aspart 1 vial 07/03/16 22:00 07/17/16 06:15 Novolog Vial Sliding Scale - SQ Not Given ACHS JESÚS Protocol Insulin Detemir 10 units 07/04/16 07:00 07/17/16 06:21 Levemir Vial SQ 10 units DAILY@0700 JESÚS Administration Isosorbide Mononitrate 30 mg 07/04/16 10:00 07/17/16 09:04 Imdur - PO 30 mg DAILY JESÚS Administration Levothyroxine Sodium 50 mcg 07/04/16 07:00 07/17/16 06:15 Synthroid - PO 50 mcg DAILY@0700 JESÚS Administration Lidocaine 1 patch 07/04/16 10:00 07/17/16 09:14 Lidoderm Patch - TP 1 patch DAILY JESÚS Administration Metoclopramide HCl 10 mg 07/08/16 16:30 07/17/16 06:15 Reglan - PO 10 mg ACHS JESÚS Administration Metoprolol Succinate 25 mg 07/08/16 11:15 07/17/16 09:04 Toprol Xl - PO 25 mg DAILY JESÚS Administration Nystatin 1 applic 07/03/16 22:00 07/17/16 09:06 Mycostatin Cream - TP 1 applic BID JESÚS Administration Oxycodone HCl 5 mg 07/03/16 20:31 07/17/16 09:15 Roxicodone - PO 5 mg Q4H PRN Administration PAIN LEVEL 6-10 Pantoprazole Sodium 20 mg 07/08/16 11:15 07/17/16 09:04 Protonix - PO 20 mg DAILY JESÚS Administration Polyethylene Glycol 17 gm 07/15/16 22:00 07/17/16 09:14 Miralax (For Daily Use) - PO Not Given BID JESÚS Potassium Phos/Sodium Phos 1 packet 07/14/16 14:00 07/17/16 06:15 Phos-Nak Packet - PO 1 packet TID JESÚS Administration Senna/Docusate Sodium 2 tablet 07/03/16 22:00 07/16/16 21:30 Pericolace - PO 2 tablet HS JESÚS Administration Simethicone 80 mg 07/03/16 22:00 07/17/16 09:04 Mylicon - PO 80 mg QID JESÚS Administration Vital Signs Period Temp Pulse Resp BP Sys/Hagan Pulse Ox Last 24 Hr 97.3 F-98.4 F 77-84 19-20 125-143/57-70 99-99 Constitutional: Yes: No Distress, Calm, Obese Eyes: No: Sclera Icterus Cardiovascular: Yes: Regular Rate and Rhythm, S1, S2, Other (PMI displaced). No: JVD (tds habitus,) 2/6 sys murmur at apex Gallop Respiratory: Yes: diminished air movement, poor effort. No: Accessory Muscle Use Gastrointestinal: Yes: Normal Bowel Sounds (tds exam (++ obese)), Soft. No: Tenderness Extremities: No: Cold Edema: pitting and nonpitting chronic edema of le, chronic stasis changes; left bka Integumentary: No: Jaundice diaphoresis Neurological: Yes: Alert, Oriented (x3) Psychiatric: No: Agitated Labs: CBC, BMP 07/16/16 19:15 07/16/16 05:35 tele: sr Echo 07/01/2016: Mild decr EF. paradoxical septal motion with mild HK of anteroseptum. RV not seen. 1+ mr/tr. mild (although MG only 12 mmHg). Echo 06/2015: mild-mod decr EF--global; nl RV; mild LAE; mild-mod MR/TR; RVSP 30- 40; small peric effusion; + pleural eff echo 12/06/15: mild lvh. nl lv/rv, Septal motion c/w RV volume overload. Ab diastology. mild cheryl, mild-mod mr, mild as, mod-sev tr, rvsp 50, mod pericardial eff, no tamponade. pleural effusion. echo 12/11/15: focused, Nl lv. trivial pericardial eff. Pleural effusion. EKG 06/27/16: sr, nl intervals, nonspecific tw changes, no sig change prior a/p: 71 yo with h/o HFpEF, CAD s/p RI, HTN, HL, pHTN, MIRIAM, o2 dep't copd, CKD, IDDM, hypothyroid and chronic LLE cellulitis, here with non healing left foot wound/gangrene. chronic foot wound, gangrene, now s/p bka 07/03/16: -vascular, ID following chronic HFpEF/pulm HTN/venous ins'y/acute on chronic hypoxic and hypercapneic resp failure: - pt with volume overload during mult prior admits here--vol status is always [id number] to assess given morbidly obese neck hiding JVD, chronic venous ins'y/lymphedema of legs, and chronically very abnormal CXR markings due to overlying soft tissue - suspect chronic RV failure syndrome clinically, with evidence of this reported intermittently on serial echoes here over the years - cr was above baseline, possible due to infection so had been holding diuretics but then had long NSVT on tele ? sign of incr'd filling pressures so started on lasix gtt. Cr now back to baseline. 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 -07/15: wt down on standing scale to 277, from 301 (3/6); creat all the way down to 1.2 (from 2.9 peak here) on lasix gtt and prn IV lasix. -07/16-: remains edematous in thighs, but chronic problem. Significant improvement in weights and Cr here with iv lasix. Planned for discharge today and she is stable from CV perspective and can continue diuresis as outpatient with torsemide 100 mg daily and weekly creatinine and bed weights. -pt with mult RFs for PE but creat prohibitive for IV contrast, and she cannot currently cooperate with V/Q; d/w'd dr daily who feels cause of her current decompensation is more likely sec to exacerbation of her chronic lung disease PSVT: -likely brief run of ATach on tele 07/01. no recurrence. CAD, h/o NSTEMI: -has previously refused stress tests. h/o NSTEMI x 2 (2012, 2014) in setting of demand (sepsis/anemia) -MATEO deferred previously due to labile creat's--no change; -cath previously deferred due to: pt preference; hi risk of vascular complications (obese habitus), hi risk of BERNARDINO, and h/o recurrent anemia, possible occult GIB -currently without anginal sx's. EKG unchanged. Con't statin, BB, asa, imdur CKD/michael: -plan as above, cr improved VTach: -17 beat run of NSVT on tele -K/Mag repletion as doing -changed coreg 3.125 to toprol 25 qd -bradycardia on tele earlier--was persistent so coreg dose decr'd but pt likely with hi vagal tone persistently given known obesity/hypoventilation syndrome and laying in bed sluggishly for most (all?) of this admit -thus far tele with no signif persistent VT or path shahzad's anemia: -chronic, baseline runs 8s-9s; -freq acute drops/PRBCs in past; currently near baseline. transfusion 07/16 HTN: -controlled gastroparesis: -s/p ngt, now removed, tolerating food -GI following
[2016-07-17 12:59] VITALS: BP 138/60; PULSE 88; TEMP 98.4
== END 2016-07-17 12:00 | DRG 239 ==
LOC: JER 12:40 → JERBED 13:24 → J6S 16:07 → J4W 06-27 15:07
PROVIDERS: ADMIT Specialist; ATTEND Specialist
PROC: 30233N1 Transfusion of Nonautologous Red Blood Cells into Peripheral Vein, Percutaneous Approach (ICD-10-PCS; 2016-06-27)
PROC: 0Y6J0Z2 Detachment at Left Lower Leg, Mid, Open Approach (ICD-10-PCS; principal; 2016-07-03 16:00)
DX: E11.52 Type 2 diabetes mellitus with diabetic peripheral angiopathy with gangrene (principal); J96.21 Acute and chronic respiratory failure with hypoxia; J96.22 Acute and chronic respiratory failure with hypercapnia; I50.23 Acute on chronic systolic (congestive) heart failure; M86.172 Other acute osteomyelitis, left ankle and foot; N17.9 Acute kidney failure, unspecified; Z68.43 Body mass index [BMI] 50.0-59.9, adult; I47.1 Supraventricular tachycardia; L03.116 Cellulitis of left lower limb; I13.0 Hypertensive heart and chronic kidney disease with heart failure and stage 1 through stage 4 chronic kidney disease, or unspecified chronic kidney disease; L97.929 Non-pressure chronic ulcer of unspecified part of left lower leg with unspecified severity; I47.2 Ventricular tachycardia; E11.621 Type 2 diabetes mellitus with foot ulcer; E66.01 Morbid (severe) obesity due to excess calories; Z79.4 Long term (current) use of insulin; E87.70 Fluid overload, unspecified; I25.10 Atherosclerotic heart disease of native coronary artery without angina pectoris; J44.9 Chronic obstructive pulmonary disease, unspecified; G47.33 Obstructive sleep apnea (adult) (pediatric); E03.9 Hypothyroidism, unspecified; D63.8 Anemia in other chronic diseases classified elsewhere; I25.2 Old myocardial infarction; E87.5 Hyperkalemia; E11.43 Type 2 diabetes mellitus with diabetic autonomic (poly)neuropathy; K31.84 Gastroparesis; K59.01 Slow transit constipation; I27.2 Other secondary pulmonary hypertension; N18.9 Chronic kidney disease, unspecified; H54.8 Legal blindness, as defined in USA; E11.622 Type 2 diabetes mellitus with other skin ulcer
CPT/HCPCS: 36415; 36430; 36600; 71010-TC; 73630-TC-LT; 74000-TC; 74020-TC; 74176-TC; 80048; 80053; 82550; 82728; 82803; 83540; 83550; 83605; 83735; 83880; 84100; 84132; 84443; 84484; 85025; 85027; 85610; 85730; 86850; 86870; 86900; 86901; 86902; 86922; 87040; 88307-TC; 88311-TC; 93005; 93010; 93306-TC; 93970-TC; 94640; 94660; 94760; 99284-25; E0186; G0277; G0480; J0885; J1644; P9038; P9058; Q9967

== ENCOUNTER 2016-09-16 10:29 | Inpatient (IN) | payer OTHER ==
[2016-09-16] MEDS ORDERED: ONDANSETRON 4 MG/2 ML VIAL IVPB ONE (10:54)
[2016-09-16] MEDS ORDERED: KETOROLAC TROMETHAMINE 15 MG/ML VIAL IVPUSH ONE (11:00)
--- NOTE | 2016-09-16 11:07 | PDOC ---
History of Present Illness - General History Source: Patient, [facility] Records, Old Records Exam Limitations: No Limitations <Jean Gale - Last Filed: 09/16/16 12:53> - General History Source: Patient Exam Limitations: No Limitations - History of Present Illness Initial Comments: 09/16/16 11:24 The patient is a 71 year old female brought via EMS from [facility], with a significant past medical history of Hypothyroidism, Diabetes, HTN, CHF, ID x2, (on home O2, 2L), left BKA, anemia, essential tremors, CAD, GERD, CKD and obesity, who presents to the emergency department with low grade temp of 99.7, nausea and vomiting onset today. She reports that she had 2 vomiting episodes that was nonbloody and nonbilious. She denies any abdominal pain. The patient was given rectal tylenol prior to arrival to the ED, [facility] in the [facility]. The patient had blood work performed on 09/09/2016 at [facility]. Patient is DNR as per jail paperwork. The patient denies chest pain, shortness of breath, headache and dizziness. Denies fever, diarrhea and constipation. Denies dysuria, frequency, urgency and hematuria. Allergies: Sulfa, Tubersol Past surgical history: Left BKA Social history: No alcohol, tobacco or drug use reported PMD - Dr. Amina Wong <Sammy Ojeda - Last Filed: 09/16/16 12:58> - General Chief Complaint: SIRS, Suspected/Possible Stated Complaint: HTN,VOMITING Time Seen by Provider: 09/16/16 10:48 Past History - Past Medical History Anemia: Yes Asthma: Yes Cancer: No Cardiac Disorders: Yes (ID, cad, CHF) CVA: No COPD: Yes CHF: Yes Dementia: No Diabetes: Yes GI Disorders: Yes (gerd, constipation) Disorders: (CHRONIC KIDNEY DISEASE) HTN: Yes Hypercholesterolemia: Yes Liver Disease: No Seizures: No Thyroid Disease: Yes - Surgical History Abdominal Surgery: Yes Appendectomy: No Cardiac Surgery: No Cholecystectomy: No Lung Surgery: No Neurologic Surgery: No Orthopedic Surgery: Yes (amputationr great toe) - Immunization History Td Vaccination: Yes Immunization Up to Date: Yes - Psycho/Social/Smoking Cessation Hx Anxiety: No Suicidal Ideation: No Smoking Status: No Smoking History: Never smoked Years of Tobacco Use: 0 Have you smoked in the past 12 months: No Number of Cigarettes Smoked Daily: 0 Cigars Per Day: 0 Information on smoking cessation initiated: No Hx Alcohol Use: No Drug/Substance Use Hx: No Substance Use Type: None Hx Substance Use Treatment: No <Jean Gale - Last Filed: 09/16/16 12:53> <Sammy Ojeda - Last Filed: 09/16/16 12:58> - Past Medical History Allergies/Adverse Reactions: Allergies Allergy/AdvReac Type Severity Reaction Status Date / Time Sulfa (Sulfonamide Allergy Unknown Verified 09/16/16 10:44 Antibiotics) [Sulfa(Sulfonamide Antibiotics)] tuberculin, purified protein Allergy Unknown Verified 09/16/16 10:44 deriva [From Tubersol] tuberculin,PPD,multi-puncture Allergy Unknown Verified 09/16/16 10:44 ppd Allergy Unknown Uncoded 09/16/16 10:44 Home Medications: Ambulatory Orders Aa/Hydrolyzed Collagen, Whey [Lps Neutral Flavor Liquid] 30 ml PO DAILY Albuterol 0.083% Nebulizer Adina [Ventolin 0.083% Nebulizer Soln -] 1 neb NEB Q6H 09/16/16 Aspirin Coated [Ecotrin -] 81 mg PO DAILY 09/16/16 Calcium Acetate 667 mg PO TID 09/16/16 Epoetin Dawood [Procrit] 10,000 unit SQ WEEKLY 09/16/16 Fluticasone Prop 0.05% Nasal [Flonase -] 1 spray NS DAILY 09/16/16 Gabapentin [Neurontin -] 300 mg PO QID 09/16/16 Heparin - 5,000 unit SQ BID 09/16/16 Insulin (Levemir) [Levemir Flexpen -] 20 units SQ DAILY 09/16/16 Insulin Regular [NOVOLIN R VIAL *IVPUSH / ER / ICU Only*] 0 units SQ QID Levothyroxine [Synthroid -] 50 mcg PO DAILY 09/16/16 Metoprolol Succinate [Toprol Xl -] 25 mg PO DAILY 09/16/16 Oxycodone HCl [Roxicodone -] 5 mg PO Q6H PRN 09/16/16 Simethicone [Mi-Acid] 80 mg PO QID 09/16/16 Review of Systems - Review of Systems Able to Perform ROS?: Yes Comments:: 09/16/16 11:24 GENERAL/CONSTITUTIONAL: (+) Fever. No chills. No weakness. HEAD, EYES, EARS, NOSE AND THROAT: No change in vision. No ear pain or discharge. No sore throat. CARDIOVASCULAR: No chest pain or shortness of breath RESPIRATORY: No cough, wheezing, or hemoptysis. GASTROINTESTINAL: (+) Nausea and vomiting. No diarrhea or constipation. GENITOURINARY: No dysuria, frequency, or change in urination. MUSCULOSKELETAL: No joint or muscle swelling or pain. No neck or back pain. SKIN: No rash NEUROLOGIC: No headache, vertigo, loss of consciousness, or change in strength/ sensation. ENDOCRINE: No increased thirst. No abnormal weight change HEMATOLOGIC/LYMPHATIC: No anemia, easy bleeding, or history of blood clots. ALLERGIC/IMMUNOLOGIC: No hives or skin allergy. <Sammy Ojeda - Last Filed: 09/16/16 12:58> *Physical Exam - Vital Signs Last Vital Signs Temp Pulse Resp BP Pulse Ox 107 H 22 115/49 96 09/16/16 10:44 09/16/16 10:44 09/16/16 10:44 09/16/16 10:44 <Jean Gale - Last Filed: 09/16/16 12:53> - Vital Signs Last Vital Signs Temp Pulse Resp BP Pulse Ox 102.5 F H 107 H 22 115/49 96 09/16/16 11:01 09/16/16 10:44 09/16/16 10:44 09/16/16 10:44 09/16/16 10:44 - Physical Exam Comments: 09/16/16 11:24 GENERAL: (+) Obese. Awake, alert, and fully oriented. HEAD: No signs of trauma, normocephalic, atraumatic EYES: PERRLA, EOMI, sclera anicteric, conjunctiva clear ENT: Auricles normal inspection, hearing grossly normal, nares patent, oropharynx clear without exudates. Moist mucosa NECK: Normal ROM, supple, no lymphadenopathy, JVD, or masses LUNGS: No distress, speaks full sentences, clear to auscultation bilaterally HEART: Regular rate and rhythm, normal S1 and S2, no murmurs, rubs or gallops, peripheral pulses normal and equal bilaterally. ABDOMEN: Soft, nontender, normoactive bowel sounds. No guarding, no rebound. No masses EXTREMITIES: (+) Left BKA. Lymphodema right lower extremity, with erythema right anterior thigh, erythema along the right armpit. No edema. No clubbing or cyanosis. NEUROLOGICAL: Cranial nerves II through XII grossly intact. Normal speech, no focal sensorimotor deficits SKIN: Warm, Dry, normal turgor, no rashes or lesions noted. <Sammy Ojeda - Last Filed: 09/16/16 12:58> Heart Score/ECG Review #1 ECG reviewed & interpreted by me at: 12:00 09/16/16 12:26 NSR 105, low voltage QRS, no std/isaias, normal axis, normal intervals, TWI I, avL , QTC 465 msec <Jean Gale - Last Filed: 09/16/16 12:53> ED Treatment Course - LABORATORY CBC & Chemistry Diagram: 09/16/16 10:53 09/16/16 10:53 - RADIOLOGY Radiology Studies Ordered: Category Date Time Status CHEST X-RAY PORTABLE* [RAD] Stat Radiology 09/16/16 10:53 Ordered <Jean Gale - Last Filed: 09/16/16 12:53> - LABORATORY CBC & Chemistry Diagram: 09/16/16 10:53 09/16/16 10:53 - RADIOLOGY Radiograph Interpretation: 09/16/16 11:25 Chest X-Ray Reviewed by: Dr. Kenn Santos impression: Patient markedly rotated toward the right side. The right lung is obscured by the cardiomediastinal silhouette.No airspace opacities are seen in the left lung. No evidence of left pneumothorax. <Sammy Ojeda - Last Filed: 09/16/16 12:58> Medical Decision Making - Medical Decision Making 09/16/16 11:07 A portion of this note was documented by scribe services under my direction. I have reviewed the details of the note, within reason, and agree with the documentation with the following case summary and management plan written by me. Patient treated in the ED. Nursing notes are reviewed and incorporated into the medical decision-making. Vital signs reviewed. Peripheral IV access obtained by the nurse, laboratory studies are drawn and sent, reviewed and interpreted by myself. Vital Signs Temp Pulse Resp BP Pulse Ox 102.5 F H 107 H 22 115/49 96 09/16/16 11:01 09/16/16 10:44 09/16/16 10:44 09/16/16 10:44 09/16/16 10:44 71-year-old female with past medical history of obesity, left BKA, hypertension , congestive heart failure, coronary disease status post ID, COPD, anemia, GERD , chronic kidney disease, chronic right lower extremity lymphedema and erythema brought in by EMS from [facility] fever, vomiting 2. The patient is alert and awake and reports that she was feeling well yesterday and without any symptoms. This morning, patient woke up feeling lethargic and tired. custodial noted she was febrile and vomited twice. Patient denies abdominal pain or diarrhea. She denies chest pain or shortness of breath. She reports that she is chronic erythema of the right lower extremity. Patient was then given rectal Tylenol and the patient sent to the ED. Patient is noted here to have temperature 102.5 degrees. Adult sepsis protocol was initiated. Differential is broad and includes perhaps cellulitis on top of the lymphedema, GI, urinary tract infection. 09/16/16 11:11 Though pt has chronic kidney disease, pt continues to have fevers despite rectal tylenol. Will give a small dose of IV toradol for fever. 09/16/16 12:53 Xray reviewed. Limited study. CBC, BMP 09/16/16 10:53 09/16/16 10:53 CMP Sodium 141 mmol/L (136-145) 09/16/16 10:53 Potassium 5.2 mmol/L (3.5-5.1) H D 09/16/16 10:53 Chloride 104 mmol/L (98-107) 09/16/16 10:53 Carbon Dioxide 25 mmol/L (21-32) D 09/16/16 10:53 Anion Gap 12 (8-16) 09/16/16 10:53 BUN 84 mg/dL (7-18) H D 09/16/16 10:53 Creatinine 1.3 mg/dL (0.55-1.02) H 09/16/16 10:53 Creat Clearance w eGFR 40.26 (>60) 09/16/16 10:53 Random Glucose 87 mg/dL (74-106) 09/16/16 10:53 Lactic Acid 1.339 mmol/L (0.4-2.0) 09/16/16 10:53 Calcium 8.4 mg/dL (8.5-10.1) L 09/16/16 10:53 Total Bilirubin 0.5 mg/dL (0.2-1.0) 09/16/16 10:53 AST 12 U/L (15-37) L D 09/16/16 10:53 ALT 10 U/L (12-78) L D 09/16/16 10:53 Alkaline Phosphatase 106 U/L (45-117) 09/16/16 10:53 Creatine Kinase 63 IU/L (26-192) 09/16/16 10:53 Troponin I 0.22 ng/ml (0.00-0.05) H 09/16/16 10:53 Total Protein 6.8 g/dl (6.4-8.2) D 09/16/16 10:53 Albumin 2.7 g/dl (3.4-5.0) L D 09/16/16 10:53 Urine Test Results Urine Color Ltyellow 09/16/16 12:00 Urine Appearance Slcloudy 09/16/16 12:00 Urine pH 6.0 (5.0-8.0) 09/16/16 12:00 Urine Protein 2+ (NEGATIVE) H 09/16/16 12:00 Urine Glucose (UA) Negative (NEGATIVE) 09/16/16 12:00 Urine Ketones Negative (NEGATIVE) 09/16/16 12:00 Urine Blood 1+ (NEGATIVE) H 09/16/16 12:00 Urine Nitrite Negative (NEGATIVE) 09/16/16 12:00 Urine Bilirubin Negative (NEGATIVE) 09/16/16 12:00 Ur Leukocyte Esterase 3+ (NEGATIVE) H 09/16/16 12:00 Labs reviewed. UA positive. Pt has drug resistant UTI. Vanc and zosyn ordered. Trop is 0.22. Likely demand ischemia. Will need to admit the patient to the hospital. Pt's BP stable. Case discussed with DR. Amina Wong. She accepts the patient for telemetry admission. Requests DR. Vincent for cardiology consultation. Case discussed in detail with admitting physician including history, physical exam and ancillary studies. Admitting physician has assumed care for the patient, will follow all pending diagnostics and will complete the evaluation and treatment. <Jean Gale - Last Filed: 09/16/16 12:53> - Medical Decision Making 09/16/16 12:57 Dr. Amina Wong was consulted regarding the patient at 12:55pm [phone] <Sammy Ojeda - Last Filed: 09/16/16 12:58> *DC/Admit/Observation/Transfer - Discharge Dispostion Admit: Yes <Jean Gale - Last Filed: 09/16/16 12:53> - Attestations Scribe Attestion: 09/16/16 11:24 Documentation prepared by Sammy Ojeda, acting as medical device assembler for Jean Gale MD <Sammy Ojeda - Last Filed: 09/16/16 12:58> Diagnosis at time of Disposition: Elevated troponin UTI (urinary tract infection) Qualifiers: Urinary tract infection type: acute cystitis Hematuria presence: without hematuria Qualified Code(s): N30.00 - Acute cystitis without hematuria - Referrals Referrals: Amina Wong [Primary Care Provider] -
[2016-09-16] MEDS ORDERED: PIPERACILLIN/TAZOB 3.375 GM/50 ML PRE-DOCKED IVPB ONE (11:12)
[2016-09-16 11:15] VITALS: BMI 54.5
[2016-09-16 11:36] LABS: VENOUS BLOOD GAS HCO3 25.4 meq/L (19-25); VENOUS PH 7.36 (7.32-7.42)
[2016-09-16] MEDS ORDERED: ONDANSETRON 4 MG/2 ML VIAL ONE (11:40)
[2016-09-16] MEDS ORDERED: KETOROLAC TROMETHAMINE 15 MG/ML VIAL ONE (11:40)
[2016-09-16] MEDS ORDERED: PIPERACILLIN/TAZOB 3.375 GM 50 ML IVPB ONE ×2 (11:41→21:00)
[2016-09-16 11:46] LABS: BASOPHIL 0.4 % (0-2.0); EOSINOPHIL 0.5 % (0-4.5); MCH 29.2 pg (25.7-33.7); MCHC 31.5 g/dl (32.0-36.0); MEAN CELL VOLUME 92.9 fl (80-96); MEAN PLT VOLUME 8.3 fl (7.5-11.1); NEUTROPHILS 91.4 % (42.8-82.8); PLATELET COUNT 213 K/MM3 (134-434); RDW 15.7 % (11.6-15.6); WHITE BLOOD COUNT 6.5 K/mm3 (4.0-10.0)
[2016-09-16 12:15] LABS: INR 1.22 (0.82-1.09); PROTHROMBIN TIME (PATIENT) 13.5 SEC (9.98-11.88)
[2016-09-16 12:16] LABS: URINE APPEARANCE SLCLOUDY; URINE BILIRUBIN NEGATIVE (NEGATIVE); URINE COLOR LTYELLOW; URINE GLUCOSE (UA) NEGATIVE (NEGATIVE); URINE KETONE NEGATIVE (NEGATIVE); URINE NITRITE NEGATIVE (NEGATIVE); URINE UROBILINOGEN NEGATIVE E.U./dl (0.2-1.0)
[2016-09-16 12:17] LABS: URINE BLOOD 1+ (NEGATIVE); URINE LEUK ESTERASE 3+ (NEGATIVE); URINE PROTEIN 2+ (NEGATIVE)
[2016-09-16 12:18] LABS: ACTIVATED PTT 30.4 SECONDS (26.9-34.4)
[2016-09-16 12:37] LABS: ALBUMIN 2.7 g/dl (3.4-5.0); BILIRUBIN,TOTAL 0.5 mg/dL (0.2-1.0); CALCIUM 8.4 mg/dL (8.5-10.1); COCKROFT - GAULT 78.1405; CREATININE 1.3 mg/dL (0.55-1.02)
[2016-09-16 12:40] LABS: TOT PROT 6.8 g/dl (6.4-8.2); TROPONIN I 0.22 ng/ml (0.00-0.05)
[2016-09-16 12:42] LABS: URINE BACTERIA RARE /hpf (NONE SEEN); URINE RBC 3 /hpf (0-3); URINE WBC 75 /hpf (3-5); YEAST FEW
[2016-09-16] MEDS: VANCOMYCIN 1,500 MG in DEXTROSE 5%-WATER - 500 ML IVPB ONE ×2 (12:47→14:53)
--- NOTE | 2016-09-16 13:59 | EKG ---
Test Reason : Blood Pressure : / mmHG Vent. Rate : 105 BPM Atrial Rate : 105 BPM P-R Int : 178 ms QRS Dur : 090 ms QT Int : 352 ms P-R-T Axes : 042 -03 121 degrees QTc Int : 465 ms SINUS TACHYCARDIA LOW VOLTAGE QRS CANNOT RULE OUT ANTERIOR INFARCT , AGE UNDETERMINED POOR R WAVE PROGRESSION ABNORMAL ECG WHEN COMPARED WITH ECG OF 27-JUN-2016 09:35, VENT. RATE HAS INCREASED BY 37 BPM Confirmed by RUFINO BONILLA MD ([id number]) on 09/16/2016 1:58:47 PM Referred By: Confirmed By:RUFINO BONILLA MD
--- NOTE | 2016-09-16 17:00 | CON.CARD ---
Cardiology Consult (text) - Consultation Consultation Note: CC: trop elevation a/p: 71 yo with h/o HFpEF, CAD s/p RI, HTN, HL, pHTN, MIRIAM, o2 dep't copd, CKD, IDDM, hypothyroid and chronic LLE cellulitis/lt foot gangrene s/p L BKA, here with n/v. + fevers, n/v. + fatigue, patient lethargic. + rash around neck, right arm. + peau d'orange and venous stasis changes of LE. No cp, sob, palps, dizzy, loc, pnd, orthopnea. LE edema at baseline. At baseline cannot stand, bed bound. PMH/PSHx:Per hpi fam hx: Diabetes: Brother (ESRD on HD) social hx: Never smoked, no etoh or illicits. lives [facility]; per hpi. Additionally no diarrhea, headache, cough, congestion, visual disturbances meds: Ambulatory Orders Aa/Hydrolyzed Collagen, Whey [Lps Neutral Flavor Liquid] 30 ml PO DAILY Acetaminophen 2 tab PO DAILY 09/16/16 Albuterol 0.083% Nebulizer Adina [Ventolin 0.083% Nebulizer Soln -] 1 neb NEB Q6H 09/16/16 Aspirin Coated [Ecotrin -] 81 mg PO DAILY 09/16/16 Calcium Acetate 667 mg PO TID 09/16/16 Cyanocobalamin (Vitamin B-12) [Vitamin B-12] 1,000 mcg SL DAILY 09/16/16 Docusate Sodium [Colace -] 200 mg PO DAILY 09/16/16 Epoetin Dawood [Procrit] 10,000 unit SQ WEEKLY 09/16/16 Fluticasone Prop 0.05% Nasal [Flonase -] 1 spray NS DAILY 09/16/16 Folic Acid 1 mg PO DAILY 09/16/16 Gabapentin [Neurontin -] 300 mg PO QID 09/16/16 Heparin - 5,000 unit SQ BID 09/16/16 Insulin (Levemir) [Levemir Flexpen -] 20 units SQ DAILY 09/16/16 Insulin Regular [NOVOLIN R VIAL *IVPUSH / ER / ICU Only*] 0 units SQ QID Isosorbide Mononitrate [Isosorbide Mononitrate ER] 30 mg PO DAILY 09/16/16 Levothyroxine [Synthroid -] 50 mcg PO DAILY 09/16/16 Loratadine [Claritin -] 10 mg PO DAILY 09/16/16 Mag Hydrox/Al Hydrox/Simeth [Jigna-Lanta Liquid] 10 ml PO BID 09/16/16 Metoclopramide HCl [Reglan] 5 mg PO QID 09/16/16 Metoprolol Succinate [Toprol Xl -] 25 mg PO DAILY 09/16/16 Mupirocin Cream [Bactroban 2% Cream -] 1 applic TP BID 09/16/16 Nystatin Cream [Mycostatin Cream -] 3 applic TP DAILY 09/16/16 Oxycodone HCl [Roxicodone -] 5 mg PO Q6H PRN 09/16/16 Polyethylene Glycol 3350 [Miralax (For Daily Use) -] 17 gm PO BID 09/16/16 Sennosides [Senna] 2 tab PO HS 09/16/16 Simethicone [Mi-Acid] 80 mg PO QID 09/16/16 Simvastatin [Zocor -] 40 mg PO HS 09/16/16 Torsemide [Demadex] 20 mg PO DAILY 09/16/16 pe: Vital Signs - 24 hr 09/16/16 09/16/16 09/16/16 10:44 11:01 14:53 Temperature 102.5 F H Pulse Rate 107 H Pulse Rate [ 106 H Apical] Respiratory 22 18 Rate Blood Pressure 115/49 Blood Pressure 120/60 [Left Arm] O2 Sat by Pulse 96 98 Oximetry (%) Intake & Output 09/14/16 09/15/16 09/16/16 09/17/16 07:59 07:59 07:59 07:59 Weight 279 lb NAD, lethargic, obese, jvd tds rash around neck and rt axilla. RRR nl s1, s2 2/6 murmur at sternal border and apex scattered rhonchi bl, poor effort + bs soft obese edematous nt +distension diminished distal pulses. s/p lt bka cool right foot with delayed cap refill. diminished rt pulse cool left hand, + pulse trace le edema erythema/venous stasis changes/skin excoriations and peau d' orange changes of LE skin aaox3 no carotid bruit no jaundice diaphoresis CBC, BMP 09/16/16 10:53 09/16/16 10:53 Laboratory Tests 09/16/16 09/16/16 10:53 10:53 Lactic Acid 1.339 Total Bilirubin 0.5 AST 12 L D ALT 10 L D Alkaline Phosphatase 106 Creatine Kinase 63 Troponin I 0.22 H Albumin 2.7 L D Echo 07/01/2016: Mild decr EF. paradoxical septal motion with mild HK of anteroseptum. RV not seen. 1+ mr/tr. mild (although MG only 12 mmHg). Echo 06/2015: mild-mod decr EF--global; nl RV; mild LAE; mild-mod MR/TR; RVSP 30- 40; small peric effusion; + pleural eff EKG here: stach, 105 bpm. poor r wave progression. non- specific tw changes, no sig change from prior cxr: tds a/p: intermiediate troponin elevation/CAD -has previously refused stress tests. h/o prior NSTEMI x 2 (2012, 2014) in setting of demand (sepsis/anemia). Con't JUAN ANTONIO, but current elevation likely in setting of demand. -cath previously deferred due to: pt preference; hi risk of vascular complications (obese habitus), hi risk of BERNARDINO, and h/o recurrent anemia, possible occult GIB -currently without anginal sx's. EKG unchanged. Con't statin, BB, asa, imdur as bp tolerates -MATEO deferred previously due to labile creat's--no change; chronic foot wound, gangrene, now s/p bka 07/03/16: - Patient with poor cap refill of RLE, cool right hand. Doppler/vascular eval at discretion of pmd chronic HFpEF/pulm HTN/venous ins'y/acute on chronic hypoxic and hypercapneic resp failure: - mild systolic dysfunction, presumed RV dysfunction. - pt currently on IVF with fever, concern for infection. hold diuresis for now. Patient with chronic third spacing and total body volume overload, but intermittently with vascular depletion - Abdomen tense and distended, abd u/s to evaluate for ascites/abdominal pathology - management of rash and venous stasis changes per pmd - strict I/O's. Bed weights if possible. PSVT: -likely brief run of ATach on prior tele - con't bb as bp tolerates VTach: -17 beat run of NSVT on prior tele (previous admit) -K/Mag repletion prn - con't bb as bp tolerates CKD - Cr similar to baseline, but bun significantly elevated. concern for intravascular volume depletion. On gentle IVF, monitor volume status. MIRIAM - on bipap qhs. anemia: -chronic, baseline runs 8s-9s; -freq acute drops/PRBCs in past; currently above baseline. HTN: -controlled. monitor for hypotension in setting of infection - con't home bp meds, as bp tolerates.
--- NOTE | 2016-09-16 17:06 | HP ---
Admitting History and Physical - Primary Care Physician PCP: Amina Wong S - Admission Chief Complaint: fever, low BP, lethargy History of Present Illness: The patient is a 71 year old female brought via EMS from [facility], with a significant past medical history of Hypothyroidism, Diabetes, HTN, CHF, [place] x2, (on home O2, 2L), left BKA, anemia, essential tremors, CAD, GERD, CKD and obesity, who presents to the emergency department with low grade temp of 99.7, nausea and vomiting onset today. She reports that she had 2 vomiting episodes that was nonbloody and nonbilious. She denies any abdominal pain. The patient was given rectal tylenol prior to arrival to the ED, while in the [facility]. The patient had blood work performed on 09/09/2016 at [facility]. Patient is DNR as per [facility] paperwork. The patient denies chest pain, shortness of breath, headache and dizziness. Denies fever, diarrhea and constipation. Denies dysuria, frequency, urgency and hematuria. 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: Peripheral Neuropathy Cardiovascular: Yes: CAD, CHF, HTN, Hyperlipdemia, [place] Pulmonary: Yes: COPD, O2 Dependent, Pneumonia (cellulitis of legs), Sleep Apnea (see HPI) Gastrointestinal: Yes: Constipation, Other (GASTROPARESIS) Renal/: Yes: Renal Inusuff, UTI Heme/Onc: Yes: Anemia Infectious Disease: Yes: MRSA, Other (uti- esbl positive ecoli and klebsiella) Endocrine: Yes: Diabetes Mellitus, Hypothyroidism Dermatology: Yes: Cellulitis (recurrent R leg cellulitis) - Advance Directives Advance Directives: Yes: DNR - Smoking History Smoking history: Never smoked Have you smoked in the past 12 months: No Aproximately how many cigarettes per day: 0 - Alcohol/Substance Use Hx Alcohol Use: No History of Substance Use: reports: None - Social History Usual Living Arrangement: Yes: [place]way ADL: Support Services History of Recent Travel: No Home Medications - Allergies Allergies/Adverse Reactions: Allergies Allergy/AdvReac Type Severity Reaction Status Date / Time Sulfa (Sulfonamide Allergy Unknown Verified 09/16/16 10:44 Antibiotics) [Sulfa(Sulfonamide Antibiotics)] tuberculin, purified protein Allergy Unknown Verified 09/16/16 10:44 deriva [From Tubersol] tuberculin,PPD,multi-puncture Allergy Unknown Verified 09/16/16 10:44 ppd Allergy Unknown Uncoded 09/16/16 10:44 - Home Medications Home Medications: Ambulatory Orders Aa/Hydrolyzed Collagen, Whey [Lps Neutral Flavor Liquid] 30 ml PO DAILY Acetaminophen 2 tab PO DAILY 09/16/16 Albuterol 0.083% Nebulizer Adina [Ventolin 0.083% Nebulizer Soln -] 1 neb NEB Q6H 09/16/16 Aspirin Coated [Ecotrin -] 81 mg PO DAILY 09/16/16 Calcium Acetate 667 mg PO TID 09/16/16 Cyanocobalamin (Vitamin B-12) [Vitamin B-12] 1,000 mcg SL DAILY 09/16/16 Docusate Sodium [Colace -] 200 mg PO DAILY 09/16/16 Epoetin Dawood [Procrit] 10,000 unit SQ WEEKLY 09/16/16 Fluticasone Prop 0.05% Nasal [Flonase -] 1 spray NS DAILY 09/16/16 Folic Acid 1 mg PO DAILY 09/16/16 Gabapentin [Neurontin -] 300 mg PO QID 09/16/16 Heparin - 5,000 unit SQ BID 09/16/16 Insulin (Levemir) [Levemir Flexpen -] 20 units SQ DAILY 09/16/16 Insulin Regular [NOVOLIN R VIAL *IVPUSH / ER / ICU Only*] 0 units SQ QID Isosorbide Mononitrate [Isosorbide Mononitrate ER] 30 mg PO DAILY 09/16/16 Levothyroxine [Synthroid -] 50 mcg PO DAILY 09/16/16 Loratadine [Claritin -] 10 mg PO DAILY 09/16/16 Mag Hydrox/Al Hydrox/Simeth [Jigna-Lanta Liquid] 10 ml PO BID 09/16/16 Metoclopramide HCl [Reglan] 5 mg PO QID 09/16/16 Metoprolol Succinate [Toprol Xl -] 25 mg PO DAILY 09/16/16 Mupirocin Cream [Bactroban 2% Cream -] 1 applic TP BID 09/16/16 Nystatin Cream [Mycostatin Cream -] 3 applic TP DAILY 05/22/17 Oxycodone HCl [Roxicodone -] 5 mg PO Q6H PRN 09/16/16 Polyethylene Glycol 3350 [Miralax (For Daily Use) -] 17 gm PO BID 09/16/16 Sennosides [Senna] 2 tab PO HS 09/16/16 Simethicone [Mi-Acid] 80 mg PO QID 09/16/16 Simvastatin [Zocor -] 40 mg PO HS 09/16/16 Torsemide [Demadex] 20 mg PO DAILY 09/16/16 Family Disease History - Family Disease History Family Disease History: Diabetes: Brother (ESRD on HD), Other: Brother Review of Systems - Review of Systems Constitutional: reports: Chills, Fever, Lethargy Eyes: reports: Other (legally blind) HENT: denies: Ear Pain, Epistaxis, Nasal Congestion, Throat Pain Neck: denies: Pain on Movement, Stiffness, Tenderness Cardiovascular: denies: Chest Pain, Palpitations, Shortness of Breath Respiratory: denies: Cough, SOB Gastrointestinal: denies: Abdominal Pain, Bloating, Constipation Genitourinary: reports: Burning, Dysuria. denies: Flank Pain Musculoskeletal: reports: Back Pain (chronic), Joint Pain (RLE) Integumentary: reports: Rash (RLE) Neurological: denies: Change in Speech, Headache, Seizure, Syncope Endocrine: denies: Excessive Sweating, Flushing Hematology/Lymphatic: denies: Easily Bruised, Excessive Bleeding Psychiatric: denies: Altered Sleep Pattern, Anxiety, Depression, Suicidal Physical Examination Vital Signs: Vital Signs Temperature 102.5 F H 09/16/16 11:01 Pulse Rate 106 H 09/16/16 14:53 Respiratory Rate 18 09/16/16 14:53 Blood Pressure 120/60 09/16/16 14:53 O2 Sat by Pulse Oximetry (%) 98 09/16/16 14:53 Constitutional: Yes: Anxious, Mild Distress Eyes: Yes: Conjunctiva Clear HENT: Yes: Atraumatic Neck: Yes: Supple Cardiovascular: Yes: Regular Rate and Rhythm Respiratory: Yes: CTA Bilaterally Gastrointestinal: Yes: Soft, Abdomen, Obese. No: Distention, Tenderness Renal/: No: Hematuria Musculoskeletal: No: Joint Stiffness, Joint Swelling Extremities: No: Cold, Cool Edema: Yes (RLE lymphedema) Integumentary: Yes: Rash (RLE c/w cellulitis; around her neck and R axilla c/w fungic rash) Wound/Incision: Yes: Other (L BKA) Neurological: Yes: WNL, Alert, Oriented ...Motor Strength: WNL (functional quadriplegia) Psychiatric: Yes: WNL, Alert, Oriented. No: Agitated, Suicidal Ideation Imaging - Results Chest X-ray: Report Reviewed Other: Report Reviewed Assessment/Plan The patient is a 71 year old female brought via EMS from [facility], with a significant past medical history of Hypothyroidism, Diabetes, HTN, CHF, [place] x2, (on home O2, 2L), left BKA, anemia, essential tremors, CAD, GERD, CKD and obesity, admitted with UTI, RLE cellulitis, neck and R axilla rash looks like fungic; sepsis, low BP/ r/o septic shock ARF worsening creatinine admit to monitored unit IVF gentle hydration (h/o CHF fluid overload) broad spectrum ATB topical nystatin hold BP meds check blood cx, UCx; ID, cardiology eval renal eval f/u labs DVT falls decubs and aspiration PFX HOB BGM, DM control; borderline low GLU sec to sepsis; cut down insulin sq prognosis guarded d/w pt and staff call pt's sister also t time 80 min
[2016-09-16] MEDS ORDERED: ACETAMINOPHEN PO PRN (19:11)
[2016-09-16] MEDS ORDERED: SODIUM CHLORIDE 1,000 ML IV SCH (21:15)
[2016-09-16] MEDS ORDERED: PATIENT'S OWN MEDICATION (NON-FORMULARY) (Simvastatin 40 MG) PO SCH (22:00)
[2016-09-16] MEDS ORDERED: PATIENT'S OWN MEDICATION (NON-FORMULARY) (Calcium Acetate [Calcium Acetate] 667 MG) PO SCH (22:00)
[2016-09-16] MEDS ORDERED: PATIENT'S OWN MEDICATION (NON-FORMULARY) (Metoclopramide Hcl [Reglan] 5 MG) PO SCH (22:00)
[2016-09-16] MEDS: SIMETHICONE 80 MG TAB.CHEW (FP) PO SCH (22:29)
[2016-09-16] MEDS: METOCLOPRAMIDE HCL 10 MG TABLET (FP) PO SCH (22:29)
[2016-09-16] MEDS: SENNOSIDES 8.6MG TABLET (FP) PO SCH (22:29)
[2016-09-16] MEDS: GABAPENTIN 300 MG CAPSULE (FP) PO SCH (22:29)
[2016-09-16] MEDS: ATORVASTATIN CA 20 MG TABLET (FP) PO SCH (22:29)
[2016-09-16] MEDS: MUPIROCIN CA 2% TOPICAL CREAM 15 GM TUBE TP SCH (22:30)
[2016-09-16] MEDS: HEPARIN NA (PORCINE) 5,000 UNITS/ML 1ML VIAL SQ SCH (22:30)
[2016-09-16] MEDS: MAG HYDROX/AL HYDROX/SIMETH 30 ML UNIT-DOSE CUP PO SCH (22:31)
[2016-09-16] MEDS: INSULIN SLIDING SCALE (NOVOLOG) 1 VIAL SQ SCH (22:45)
[2016-09-16] MEDS: POLYETHYLENE GLYCOL 3350 119 GM BTL PO SCH (22:45)
[2016-09-16] MEDS: ACETAMINOPHEN 325 MG TABLET (FP) PO PRN (23:11)
[2016-09-17] MEDS ORDERED: PIPERACILLIN/TAZOB 3.375 GM 50 ML IVPB SCH ×2 (02:00→10:30)
[2016-09-17] MEDS: ALBUTEROL SO4 0.083% IH SOL 2.5 MG/3 ML VIAL.NEB. NEB SCH ×5 (05:45→23:56)
[2016-09-17] MEDS: METOCLOPRAMIDE HCL 10 MG TABLET (FP) PO SCH ×4 (06:11→22:03)
[2016-09-17] MEDS: LEVOTHYROXINE NA 50 MCG TABLET (FP) PO SCH (06:11)
[2016-09-17] MEDS: INSULIN SLIDING SCALE (NOVOLOG) 1 VIAL SQ SCH ×4 (06:18→21:57)
[2016-09-17] MEDS ORDERED: INSULIN DETEMIR 100 UNITS/ML MDV SQ SCH (07:00)
[2016-09-17 08:37] LABS: BASOPHIL 0.1 % (0-2.0); EOSINOPHIL 0.2 % (0-4.5); MCH 29.4 pg (25.7-33.7); MCHC 31.2 g/dl (32.0-36.0); MEAN CELL VOLUME 94.4 fl (80-96); MEAN PLT VOLUME 9.3 fl (7.5-11.1); NEUTROPHILS 94.9 % (42.8-82.8); PLATELET COUNT 159 K/MM3 (134-434); RDW 16.3 % (11.6-15.6); WHITE BLOOD COUNT 12.9 K/mm3 (4.0-10.0)
[2016-09-17 08:38] LABS: ALBUMIN 2.3 g/dl (3.4-5.0); BILIRUBIN,TOTAL 0.6 mg/dL (0.2-1.0); CALCIUM 8.4 mg/dL (8.5-10.1); COCKROFT - GAULT 67.728; CREATININE 1.5 mg/dL (0.55-1.02); TOT PROT 6.3 g/dl (6.4-8.2)
[2016-09-17] MEDS: CALCIUM ACETATE 667 MG CAPSULE (FP) PO SCH ×3 (08:52→16:59)
[2016-09-17] MEDS: MAG HYDROX/AL HYDROX/SIMETH 30 ML UNIT-DOSE CUP PO SCH ×2 (09:08→22:04)
[2016-09-17] MEDS: HEPARIN NA (PORCINE) 5,000 UNITS/ML 1ML VIAL SQ SCH ×2 (09:08→22:05)
[2016-09-17] MEDS: METOPROLOL SUCCINATE 25 MG TAB.SR.24H (FP) PO SCH (09:09)
[2016-09-17] MEDS: oxyCODONE HCL 5 MG TABLET PO PRN ×2 (09:09→22:03)
[2016-09-17] MEDS: DOCUSATE SODIUM 100 MG CAPSULE (FP) PO SCH (09:09)
[2016-09-17] MEDS: CYANOCOBALAMIN 1,000 MCG TABLET (FP) PO SCH (09:09)
[2016-09-17] MEDS: GABAPENTIN 300 MG CAPSULE (FP) PO SCH ×4 (09:09→22:02)
[2016-09-17] MEDS: ASPIRIN COATED 81 MG TABLET.EC PO SCH (09:09)
[2016-09-17] MEDS: FOLIC ACID 1 MG TABLET (FP) PO SCH (09:09)
[2016-09-17] MEDS: ISOSORBIDE MONONITRATE 30 MG TAB.SR.24H (FP) PO SCH ×2 (09:09→10:11)
[2016-09-17] MEDS: SIMETHICONE 80 MG TAB.CHEW (FP) PO SCH ×4 (09:09→22:02)
[2016-09-17] MEDS: LORATADINE 10 MG TABLET PO SCH (09:10)
[2016-09-17] MEDS: FLUTICASONE PROP 0.05% 16 GM NASAL SPRAY NS SCH (09:13)
[2016-09-17] MEDS: MUPIROCIN CA 2% TOPICAL CREAM 15 GM TUBE TP SCH ×2 (09:14→21:54)
[2016-09-17] MEDS: NYSTATIN 100,000 UNIT/GM TOPICAL CREAM 15 GM TUBE TP SCH (09:15)
[2016-09-17] MEDS: POLYETHYLENE GLYCOL 3350 119 GM BTL PO SCH ×2 (09:16→22:04)
[2016-09-17] MEDS ORDERED: PATIENT'S OWN MEDICATION (NON-FORMULARY) (Insulin (Levemir) [Levemir Flexpen -] 20 UNITS) SQ SCH (10:00)
[2016-09-17] MEDS ORDERED: PATIENT'S OWN MEDICATION (NON-FORMULARY) (Cyanocobalamin (Vitamin B-12) [Vitamin B-12] 1,0 SL SCH (10:00)
[2016-09-17] MEDS ORDERED: VANCOMYCIN 1,000 MG in DEXTROSE 5%-WATER - 250 ML IVPB SCH (10:00)
--- NOTE | 2016-09-17 10:19 | PN ---
Progress Note, Physician Chief Complaint: in bed sleepy but arousbale; bordelrine low BP; BP meds held; on low dose IVF; high K and higher creatinine; no pain no cough no SOB - Current Medication List Current Medications: Active Medications Acetaminophen (Tylenol -) 650 mg PO DAILY PRN PRN Reason: PAIN LEVEL 6-10 Last Admin: 09/16/16 23:11 Dose: 650 mg Al Hydroxide/Mg Hydroxide (Mylanta Oral Suspension -) 10 ml PO BID [facility] Last Admin: 09/17/16 09:08 Dose: 10 ml Albuterol Sulfate (Ventolin 0.083% Nebulizer Soln -) 1 amp NEB Q6HPO [facility] Last Admin: 09/17/16 05:45 Dose: 1 amp Aspirin (Ecotrin -) 81 mg PO DAILY [facility] Last Admin: 09/17/16 09:09 Dose: 81 mg Atorvastatin Calcium (Lipitor -) 20 mg PO HS [facility] Last Admin: 09/16/16 22:29 Dose: 20 mg Calcium Acetate (Phoslo -) 667 mg PO TIDCM [facility] Last Admin: 09/17/16 08:52 Dose: 667 mg Cyanocobalamin (Vitamin B12 -) 1,000 mcg PO DAILY [facility] Last Admin: 09/17/16 09:09 Dose: 1,000 mcg Docusate Sodium (Colace -) 200 mg PO DAILY [facility] Last Admin: 09/17/16 09:09 Dose: 200 mg Epoetin Dawood (Procrit -) 10,000 unit SQ Rice@10 JESÚS Fluticasone Propionate (Flonase -) 1 spray NS DAILY [facility] Last Admin: 09/17/16 09:13 Dose: 1 puff Folic Acid (Folic Acid -) 1 mg PO DAILY [facility] Last Admin: 09/17/16 09:09 Dose: 1 mg Gabapentin (Neurontin -) 300 mg PO QID [facility] Last Admin: 09/17/16 09:09 Dose: 300 mg Heparin Sodium (Porcine) (Heparin -) 5,000 unit SQ BID [facility] Last Admin: 09/17/16 09:08 Dose: 5,000 unit Piperacillin Sod/Tazobactam Sod (Zosyn 3.375gm Ivpb (Pre-Docked)) 50 mls @ 100 mls/hr IVPB Q8H-IV JESÚS PRN Reason: Protocol Vancomycin HCl (Vancomycin (Pre-Docked)) 250 mls @ 150 mls/hr IVPB DAILY@1200 JESÚS PRN Reason: Protocol Sodium Chloride (Normal Saline -) 1,000 mls @ 50 mls/hr IV ASDIR [facility] Stop: 09/17/16 21:04 Last Admin: 09/16/16 22:30 Dose: 50 mls/hr Insulin Aspart (Novolog Vial Sliding Scale -) 1 vial SQ [facility] PRN Reason: Protocol Last Admin: 09/17/16 06:18 Dose: Not Given Insulin Detemir (Levemir Vial) 10 units SQ ACBK [facility] Levothyroxine Sodium (Synthroid -) 50 mcg PO ACBK [facility] Last Admin: 09/17/16 06:11 Dose: 50 mcg Loratadine (Claritin -) 10 mg PO DAILY [facility] Last Admin: 09/17/16 09:10 Dose: 10 mg Metoclopramide HCl (Reglan -) 5 mg PO ACHS [facility] Last Admin: 09/17/16 06:11 Dose: 5 mg Metoprolol Succinate (Toprol Xl -) 25 mg PO DAILY [facility] Last Admin: 09/17/16 09:09 Dose: 25 mg Mupirocin (Bactroban 2% Cream -) 1 applic TP BID [facility] Last Admin: 09/17/16 09:14 Dose: 1 applic Nystatin (Mycostatin Cream -) 3 applic TP DAILY [facility] Last Admin: 09/17/16 09:15 Dose: 3 applic Oxycodone HCl (Roxicodone -) 5 mg PO Q6H PRN PRN Reason: PAIN Last Admin: 09/17/16 09:09 Dose: 5 mg Polyethylene Glycol (Miralax (For Daily Use) -) 17 gm PO BID [facility] Last Admin: 09/17/16 09:16 Dose: 17 gm Senna (Senna -) 2 tab PO HS [facility] Last Admin: 09/16/16 22:29 Dose: 2 tab Simethicone (Mylicon -) 80 mg PO QID [facility] Last Admin: 09/17/16 09:09 Dose: 80 mg - Objective Vital Signs: Vital Signs Temperature 99.7 F H 09/17/16 08:12 Pulse Rate 95 H 09/17/16 08:12 Respiratory Rate 20 09/17/16 08:24 Blood Pressure 98/42 09/17/16 08:12 O2 Sat by Pulse Oximetry (%) 96 05/23/17 08:24 Constitutional: Yes: Anxious, Mild Distress Eyes: Yes: Conjunctiva Clear HENT: Yes: Atraumatic Neck: Yes: Supple Cardiovascular: Yes: Regular Rate and Rhythm Respiratory: Yes: Diminished Gastrointestinal: Yes: Soft, Abdomen, Obese. No: Distention, Tenderness Genitourinary: No: Hematuria Musculoskeletal: No: Joint Stiffness, Joint Swelling Extremities: Yes: Other (L BKA; RLE lymphedema and cellulitis). No: Cold, Cool Edema: Yes (RLE) Integumentary: Yes: Rash (RLE; neck area and R axilla) Neurological: Yes: WNL (functional quadriplegia), Alert, Oriented ...Motor Strength: WNL Psychiatric: Yes: WNL, Alert, Oriented. No: Agitated, Suicidal Ideation Labs: CBC, BMP 09/17/16 05:40 09/17/16 05:40 INR, PTT INR 1.22 (0.82-1.09) H 09/16/16 10:53 - ....Imaging Other: Report Reviewed Assessment/Plan The patient is a 71 year old female brought via EMS from [facility], with a significant past medical history of Hypothyroidism, Diabetes, HTN, CHF, [place] x2, (on home O2, 2L), left BKA, anemia, essential tremors, CAD, GERD, CKD and obesity, admitted with UTI, RLE cellulitis, neck and R axilla rash looks like fungic; sepsis, low BP/ r/o septic shock ARF worsening creatinine, high K; will give kayexalate po; renal consult called admitted to monitored unit IVF gentle hydration (h/o CHF fluid overload) broad spectrum ATB topical nystatin hold BP meds check blood cx, UCx; ID, cardiology eval f/u labs DVT falls decubs and aspiration PFX HOB BGM, DM control; borderline low GLU sec to sepsis; cut down insulin sq prognosis guarded d/w pt and staff t time 40 min
[2016-09-17] MEDS ORDERED: SODIUM POLYSTYRENE SULFONATE 15 GM/60 ML BOTTLE PO ONE (10:22)
--- NOTE | 2016-09-17 11:50 | PN ---
Progress Note (short form) - Note Progress Note: ID Consult dictated UTI/possible sepsis secondary to UTI Fever/ leukocytosis Diabetes mellitus Azotemia Pending cultures, continue empiric zosyn
[2016-09-17] MEDS ORDERED: VANCOMYCIN 1 GRAM (PRE-DOCKED) 250 ML IVPB SCH ×2 (12:00)
--- NOTE | 2016-09-17 12:06 | PN ---
Progress Note (short form) - Note Progress Note: CC: trop elevation S: slightly more alert today. no cp, palps, sob, dizziness LE edema stable Current Medications Acetaminophen (Tylenol -) 650 mg PO DAILY PRN PRN Reason: PAIN LEVEL 6-10 Last Admin: 09/16/16 23:11 Dose: 650 mg Al Hydroxide/Mg Hydroxide (Mylanta Oral Suspension -) 10 ml PO BID [facility] Last Admin: 09/17/16 09:08 Dose: 10 ml Albuterol Sulfate (Ventolin 0.083% Nebulizer Soln -) 1 amp NEB Q6HPO [facility] Last Admin: 09/17/16 11:42 Dose: 1 amp Aspirin (Ecotrin -) 81 mg PO DAILY [facility] Last Admin: 09/17/16 09:09 Dose: 81 mg Atorvastatin Calcium (Lipitor -) 20 mg PO HS [facility] Last Admin: 09/16/16 22:29 Dose: 20 mg Calcium Acetate (Phoslo -) 667 mg PO TIDCM [facility] Last Admin: 09/17/16 11:37 Dose: 667 mg Cyanocobalamin (Vitamin B12 -) 1,000 mcg PO DAILY [facility] Last Admin: 09/17/16 09:09 Dose: 1,000 mcg Docusate Sodium (Colace -) 200 mg PO DAILY [facility] Last Admin: 09/17/16 09:09 Dose: 200 mg Epoetin Dawood (Procrit -) 10,000 unit SQ Rice@10 JESÚS Fluticasone Propionate (Flonase -) 1 spray NS DAILY [facility] Last Admin: 09/17/16 09:13 Dose: 1 puff Folic Acid (Folic Acid -) 1 mg PO DAILY [facility] Last Admin: 09/17/16 09:09 Dose: 1 mg Gabapentin (Neurontin -) 300 mg PO QID [facility] Last Admin: 09/17/16 09:09 Dose: 300 mg Heparin Sodium (Porcine) (Heparin -) 5,000 unit SQ BID [facility] Last Admin: 09/17/16 09:08 Dose: 5,000 unit Vancomycin HCl (Vancomycin (Pre-Docked)) 250 mls @ 150 mls/hr IVPB DAILY@1200 JESÚS PRN Reason: Protocol Sodium Chloride (Normal Saline -) 1,000 mls @ 50 mls/hr IV ASDIR [facility] Stop: 09/17/16 21:04 Last Admin: 09/16/16 22:30 Dose: 50 mls/hr Piperacillin Sod/Tazobactam Sod (Zosyn 3.375gm Ivpb (Pre-Docked)) 50 mls @ 100 mls/hr IVPB Q8H-IV JESÚS PRN Reason: Protocol Insulin Aspart (Novolog Vial Sliding Scale -) 1 vial SQ [facility] PRN Reason: Protocol Last Admin: 09/17/16 11:49 Dose: Not Given Insulin Detemir (Levemir Vial) 10 units SQ ACBK [facility] Levothyroxine Sodium (Synthroid -) 50 mcg PO ACBK [facility] Last Admin: 09/17/16 06:11 Dose: 50 mcg Loratadine (Claritin -) 10 mg PO DAILY [facility] Last Admin: 09/17/16 09:10 Dose: 10 mg Metoclopramide HCl (Reglan -) 5 mg PO ACHS [facility] Last Admin: 09/17/16 11:37 Dose: 5 mg Metoprolol Succinate (Toprol Xl -) 25 mg PO DAILY [facility] Last Admin: 09/17/16 09:09 Dose: 25 mg Mupirocin (Bactroban 2% Cream -) 1 applic TP BID [facility] Last Admin: 09/17/16 09:14 Dose: 1 applic Nystatin (Mycostatin Cream -) 3 applic TP DAILY [facility] Last Admin: 09/17/16 09:15 Dose: 3 applic Oxycodone HCl (Roxicodone -) 5 mg PO Q6H PRN PRN Reason: PAIN Last Admin: 09/17/16 09:09 Dose: 5 mg Polyethylene Glycol (Miralax (For Daily Use) -) 17 gm PO BID [facility] Last Admin: 09/17/16 09:16 Dose: 17 gm Senna (Senna -) 2 tab PO HS [facility] Last Admin: 09/16/16 22:29 Dose: 2 tab Simethicone (Mylicon -) 80 mg PO QID [facility] Last Admin: 09/17/16 09:09 Dose: 80 mg pe: Vital Signs - 24 hr 09/16/16 09/16/16 09/16/16 14:53 16:00 17:00 Temperature 98.8 F 98.5 F Pulse Rate 94 H 89 Pulse Rate [ 106 H Apical] Respiratory 18 16 18 Rate Blood Pressure 102/52 117/47 Blood Pressure 120/60 [Left Arm] O2 Sat by Pulse 98 94 L Oximetry (%) 09/16/16 09/16/16 09/17/16 21:00 22:56 02:00 Temperature 101 F H Pulse Rate 85 Pulse Rate [ Apical] Respiratory 18 20 Rate Blood Pressure 118/43 Blood Pressure [Left Arm] O2 Sat by Pulse 96 96 Oximetry (%) 09/17/16 09/17/16 09/17/16 06:00 08:12 08:24 Temperature 99.8 F H 99.7 F H Pulse Rate 93 H 95 H Pulse Rate [ Apical] Respiratory 20 20 20 Rate Blood Pressure 107/48 98/42 Blood Pressure [Left Arm] O2 Sat by Pulse 96 Oximetry (%) Intake & Output 09/15/16 09/16/16 09/17/16 09/18/16 07:59 07:59 07:59 07:59 Intake Total 550 Balance 550 Weight 279 lb NAD, obese, jvd tds rash around neck and rt axilla. RRR nl s1, s2 2/6 murmur at sternal border and apex scattered rhonchi bl, poor effort + bs soft obese edematous nt +distension diminished distal pulses. s/p lt bka cool right foot with delayed cap refill. diminished rt pulse cool left hand, + pulse trace le edema erythema/venous stasis changes/skin excoriations and pe[place] d' orange changes of LE skin aaox3 no carotid bruit no jaundice diaphoresis CBC, BMP 09/17/16 05:40 09/17/16 05:40 Laboratory Tests 09/17/16 05:40 Total Bilirubin 0.6 AST 78 H D ALT 13 D Alkaline Phosphatase 82 D Albumin 2.3 L EKG here: stach, 105 bpm. poor r wave progression. non- specific tw changes, no sig change from prior tele sr pvc Echo 07/01/2016: Mild decr EF. paradoxical septal motion with mild HK of anteroseptum. RV not seen. 1+ mr/tr. mild (although MG only 12 mmHg). Echo 06/2015: mild-mod decr EF--global; nl RV; mild LAE; mild-mod MR/TR; RVSP 30- 40; small peric effusion; + pleural eff cxr: tds a/p: 71 yo with h/o HFpEF, CAD s/p [place], HTN, HL, pHTN, MIRIAM, o2 dep't copd, CKD, IDDM, hypothyroid and chronic LLE cellulitis/lt foot gangrene s/p L BKA, here with n/ v. intermiediate troponin elevation/CAD -has previously refused stress tests. h/o prior NSTEMI x 2 (2012, 2014) in setting of demand (sepsis/anemia). Con't JUAN ANTONIO, but current elevation likely in setting of demand. -cath previously deferred due to: pt preference; hi risk of vascular complications (obese habitus), hi risk of BERNARDINO, and h/o recurrent anemia, possible occult GIB -currently without anginal sx's. EKG unchanged. Con't statin, BB, asa, imdur as bp tolerates -MATEO deferred previously due to labile creat's--no change; chronic foot wound, gangrene, now s/p bka 07/03/16: - Patient with poor cap refill of RLE, cool right hand. Doppler/vascular eval at discretion of pmd chronic HFpEF/pulm HTN/venous ins'y/acute on chronic hypoxic and hypercapneic resp failure: - mild systolic dysfunction, presumed RV dysfunction. - pt currently on IVF with fever, concern for infection. hold diuresis for now. Patient with chronic third spacing and total body volume overload, but intermittently with vascular depletion. Agree with IVF, rate at discretion of pmd. - Abdomen tense and distended, abd u/s --> no ascites - management of rash and venous stasis changes per pmd - strict I/O's. Bed weights if possible. PSVT: -likely brief run of ATach on prior tele, no recurrence - con't bb as bp tolerates VTach: -17 beat run of NSVT on prior tele (previous admit), no recurrence -K/Mag repletion prn - con't bb as bp tolerates CKD - Cr similar to baseline, but bun significantly elevated. concern for intravascular volume depletion. On gentle IVF, monitor volume status. - consider adjustment of gabapentin dose if possible. - 09/17 worsened hyperkalemia. monitor closely. renal following. MIRIAM - on bipap qhs. anemia: -chronic, baseline runs 8s-9s; -freq acute drops/PRBCs in past; currently above baseline. HTN: -controlled. monitor for hypotension in setting of infection - con't home bp meds, as bp tolerates. bp decreasing --> currently holding imdur.
--- NOTE | 2016-09-17 14:29 | CONSULT ---
Consult - text type - Consultation Consultation Note: Renal consult for CKD/Azotemia This is a 71 year old woman with PMhx of CKD stage 3 w/o significant proteinuria , CHF, COPD, PVD, Chronic LE lymphedema, IDDM, CAD who presented wit fever with BUN/Cr of 85/1.5 and K of 5..5. Pt states that she has had constipation. Denies any cough, chest pain, abd pain, cough, N/V/D. No rash. Denies any NSAID use. On Torsemide as an outpatient.Reports good urine output. PMHx: as above Allergies: as listed in EMR Family Hx: NC Social Hx: No T/A/D ROS: As per HPI, all other pertinent ros negative Home Meds: Home Medications Medication Instructions Recorded Aa/Hydrolyzed Collagen, Whey [Lps 30 ml PO DAILY 09/16/16 Neutral Flavor Liquid] Acetaminophen 2 tab PO DAILY 09/16/16 Albuterol 0.083% Nebulizer Adina 1 neb NEB Q6H 09/16/16 [Ventolin 0.083% Nebulizer Soln -] Aspirin Coated [Ecotrin -] 81 mg PO DAILY 09/16/16 Calcium Acetate 667 mg PO TID 09/16/16 Cyanocobalamin (Vitamin B-12) 1,000 mcg SL DAILY 09/16/16 [Vitamin B-12] Docusate Sodium [Colace -] 200 mg PO DAILY 09/16/16 Epoetin Dawood [Procrit] 10,000 unit SQ WEEKLY 09/16/16 Fluticasone Prop 0.05% Nasal 1 spray NS DAILY 09/16/16 [Flonase -] Folic Acid 1 mg PO DAILY 09/16/16 Gabapentin [Neurontin -] 300 mg PO QID 09/16/16 Heparin - 5,000 unit SQ BID 09/16/16 Insulin (Levemir) [Levemir Flexpen 20 units SQ DAILY 09/16/16 -] Insulin Regular [NOVOLIN R VIAL 0 units SQ QID 09/16/16 *IVPUSH / ER / ICU Only*] Isosorbide Mononitrate [Isosorbide 30 mg PO DAILY 09/16/16 Mononitrate ER] Levothyroxine [Synthroid -] 50 mcg PO DAILY 09/16/16 Loratadine [Claritin -] 10 mg PO DAILY 09/16/16 Mag Hydrox/Al Hydrox/Simeth 10 ml PO BID 09/16/16 [Jigna-Lanta Liquid] Metoclopramide HCl [Reglan] 5 mg PO QID 09/16/16 Metoprolol Succinate [Toprol Xl -] 25 mg PO DAILY 09/16/16 Mupirocin Cream [Bactroban 2% 1 applic TP BID 09/16/16 Cream -] Nystatin Cream [Mycostatin Cream -] 3 applic TP DAILY 09/16/16 Oxycodone HCl [Roxicodone -] 5 mg PO Q6H PRN 09/16/16 Polyethylene Glycol 3350 [Miralax 17 gm PO BID 09/16/16 (For Daily Use) -] Sennosides [Senna] 2 tab PO HS 09/16/16 Simethicone [Mi-Acid] 80 mg PO QID 09/16/16 Simvastatin [Zocor -] 40 mg PO HS 09/16/16 Torsemide [Demadex] 20 mg PO DAILY 09/16/16 Vital Signs Temperature 99.7 F H 09/17/16 08:12 Pulse Rate 95 H 09/17/16 08:12 Respiratory Rate 20 09/17/16 08:24 Blood Pressure 98/42 09/17/16 08:12 O2 Sat by Pulse Oximetry (%) 96 09/17/16 08:24 Intake & Output 09/14/16 09/15/16 09/16/16 09/17/16 23:59 23:59 23:59 23:59 Intake Total 550 Balance 550 Weight 279 lb Vital Signs Temperature 99.7 F H 09/17/16 08:12 Pulse Rate 95 H 09/17/16 08:12 Respiratory Rate 20 09/17/16 08:24 Blood Pressure 98/42 09/17/16 08:12 O2 Sat by Pulse Oximetry (%) 96 09/17/16 08:24 Intake & Output 09/14/16 09/15/16 09/16/16 09/17/16 23:59 23:59 23:59 23:59 Intake Total 550 Balance 550 Weight 279 lb Gen: NAD, awake and alert HEENT: NC/AT, No JVD CVS: RRR, No M/R Lungs: Dec BS at the lung bases Abd: soft NT/ND Ext: 2+ lymphedema Neuro:AAOx3, no focal defects CBC, BMP 09/17/16 05:40 09/17/16 05:40 Laboratory Tests 09/17/16 05:40 Calcium 8.4 L Albumin 2.3 L Current Medications Acetaminophen (Tylenol -) 650 mg PO DAILY PRN PRN Reason: PAIN LEVEL 6-10 Last Admin: 09/16/16 23:11 Dose: 650 mg Al Hydroxide/Mg Hydroxide (Mylanta Oral Suspension -) 10 ml PO BID [facility] Last Admin: 09/17/16 09:08 Dose: 10 ml Albuterol Sulfate (Ventolin 0.083% Nebulizer Soln -) 1 amp NEB Q6HPO [facility] Last Admin: 09/17/16 11:42 Dose: 1 amp Aspirin (Ecotrin -) 81 mg PO DAILY [facility] Last Admin: 09/17/16 09:09 Dose: 81 mg Atorvastatin Calcium (Lipitor -) 20 mg PO HS [facility] Last Admin: 09/16/16 22:29 Dose: 20 mg Calcium Acetate (Phoslo -) 667 mg PO TIDCM [facility] Last Admin: 09/17/16 11:37 Dose: 667 mg Cyanocobalamin (Vitamin B12 -) 1,000 mcg PO DAILY [facility] Last Admin: 09/17/16 09:09 Dose: 1,000 mcg Docusate Sodium (Colace -) 200 mg PO DAILY [facility] Last Admin: 09/17/16 09:09 Dose: 200 mg Epoetin Dawood (Procrit -) 10,000 unit SQ Rice@10 JESÚS Fluticasone Propionate (Flonase -) 1 spray NS DAILY [facility] Last Admin: 09/17/16 09:13 Dose: 1 puff Folic Acid (Folic Acid -) 1 mg PO DAILY [facility] Last Admin: 09/17/16 09:09 Dose: 1 mg Gabapentin (Neurontin -) 300 mg PO QID [facility] Last Admin: 09/17/16 14:22 Dose: 300 mg Heparin Sodium (Porcine) (Heparin -) 5,000 unit SQ BID [facility] Last Admin: 09/17/16 09:08 Dose: 5,000 unit Vancomycin HCl (Vancomycin (Pre-Docked)) 250 mls @ 150 mls/hr IVPB DAILY@1200 JESÚS PRN Reason: Protocol Sodium Chloride (Normal Saline -) 1,000 mls @ 50 mls/hr IV ASDIR [facility] Stop: 09/17/16 21:04 Last Admin: 09/16/16 22:30 Dose: 50 mls/hr Piperacillin Sod/Tazobactam Sod (Zosyn 3.375gm Ivpb (Pre-Docked)) 50 mls @ 100 mls/hr IVPB Q8H-IV JESÚS PRN Reason: Protocol Insulin Aspart (Novolog Vial Sliding Scale -) 1 vial SQ [facility] PRN Reason: Protocol Last Admin: 09/17/16 11:49 Dose: Not Given Insulin Detemir (Levemir Vial) 10 units SQ ACBK [facility] Levothyroxine Sodium (Synthroid -) 50 mcg PO ACBK [facility] Last Admin: 09/17/16 06:11 Dose: 50 mcg Loratadine (Claritin -) 10 mg PO DAILY [facility] Last Admin: 09/17/16 09:10 Dose: 10 mg Metoclopramide HCl (Reglan -) 5 mg PO ACHS [facility] Last Admin: 09/17/16 11:37 Dose: 5 mg Metoprolol Succinate (Toprol Xl -) 25 mg PO DAILY [facility] Last Admin: 09/17/16 09:09 Dose: 25 mg Mupirocin (Bactroban 2% Cream -) 1 applic TP BID [facility] Last Admin: 09/17/16 09:14 Dose: 1 applic Nystatin (Mycostatin Cream -) 3 applic TP DAILY [facility] Last Admin: 09/17/16 09:15 Dose: 3 applic Oxycodone HCl (Roxicodone -) 5 mg PO Q6H PRN PRN Reason: PAIN Last Admin: 09/17/16 09:09 Dose: 5 mg Polyethylene Glycol (Miralax (For Daily Use) -) 17 gm PO BID [facility] Last Admin: 09/17/16 09:16 Dose: 17 gm Senna (Senna -) 2 tab PO HS [facility] Last Admin: 09/16/16 22:29 Dose: 2 tab Simethicone (Mylicon -) 80 mg PO QID [facility] Last Admin: 09/17/16 14:22 Dose: 80 mg A/P 71 year old woman with PMhx of CKD stage 3 w/o significant proteinuria, CHF, COPD, PVD, Chronic LE lymphedema, IDDM, CAD who presented wit fever with BUN/Cr of 85/1.5 and K of 5..5. #CKD with very high BUN Cr near baseline but BUN higher then old baseline s/o causes for disproportionate highly BUN (GI bleed, Steroids (not listed in MR )) agree with holding diuretics and gentle IVF Trend BUN/Cr #Hyperkalemia from intravascular volume depletion/renal insufficiency s/p kayexalate Trend K may need low K diet #Fever f/u cultures continue empiric Abx #Normocytic Anemia Check iron studies, stool occult blood continue Epogen 3x weekly no indication for transfusion Thank you Lambert Mcnamara DO
[2016-09-17] MEDS: PIPERACILLIN/TAZOB 3.375 GM 50 ML IVPB SCH ×2 (15:51→17:00)
--- NOTE | 2016-09-17 17:50 | CONS ---
DATE OF CONSULTATION: DATE OF DICTATION: 09/17/2016 The patient is a 71-year-old female evaluated for sepsis secondary to UTI. History was obtained from the chart, as she is presently lethargic and cannot give a reliable history. She is a [facility] resident. She recently was hospitalized at [facility] for a 3-week admission, complicated by gangrene of the left foot, ultimately requiring a left BKA. She now returns with nausea, vomiting, and fever. In the emergency room, patient was febrile to 102.5, hypotensive, and tachycardic. Urinalysis showed many white cells. She was empirically treated with Zosyn. She is awake but lethargic. She offers no complaints. No reports of shaking chills, labored breathing, cough, sputum production, grossly purulent urine. Her left BKA stump site is well healed. Past medical history positive for morbid obesity, diabetes mellitus, COPD, obstructive sleep apnea, chronic lower extremity lymphedema, hypothyroidism, hypertension, congestive heart failure, coronary artery disease, myocardial infarction, gastroesophageal reflux, chronic kidney disease. PAST SURGICAL HISTORY: Status post left [id number] amputation. Allergies to SULFA. Medications include albuterol, Colace, folic acid, Neurontin, insulin, Synthroid, Claritin, Toprol, Zocor, and Demadex. SOCIAL HISTORY: longterm resident, dependent in activities of daily living. No active tobacco or alcohol use. SYSTEMS REVIEW: Neurologic: No loss of consciousness, seizure activity, or focal weakness. Cardiac: Negative chest pain or palpitations. Respiratory: Negative cough or sputum production. Gastrointestinal: As per HPI. Genitourinary: As per HPI. LABORATORY DATA: White count 12.9, with 94 neutrophils, 1 lymphocyte, 3 monocytes. Hematocrit 32.9, platelets 159. Urinalysis: 75 white cells. Urine culture growing [id number]. Blood culture is pending. Chest x-ray is rotated; the right lung field is obscured, the left lung field appears clear. PHYSICAL EXAMINATION: General: The patient is awake but lethargic, arousable. Vital Signs: Temperature 99.7, T-max 102.5. Blood pressure 98/52. Pulse 95, regular. Respiration 20 per minute. Eyes: Sclerae anicteric. Patient is legally blind. Heart Sounds: S1, S2. Lungs: Scattered rhonchi. Abdomen: Very obese, soft, nontender. Extremities: Patient is status post left [id number] amputation. The surgical site is well healed without evidence of infection. Right lower extremity with lymphedema and chronic stasis dermatitis, as well as cyanotic changes of distal right lower extremity. IMPRESSION: 1. Urinary tract infection/possible sepsis secondary to urinary tract infection. 2. Diabetes mellitus. 3. Leukocytosis/fever. 4. Azotemia. Await blood and urine culture results. Continue empiric Zosyn for coverage of possible hospital-acquired gram-negative urinary tract pathogens. Further recommendations pending cultures. Thank you for the kind referral. HEBER BAY M.D. [id number]
[2016-09-17] MEDS: ACETAMINOPHEN 325 MG TABLET (FP) PO PRN (20:08)
[2016-09-17] MEDS: SENNOSIDES 8.6MG TABLET (FP) PO SCH (22:04)
[2016-09-17] MEDS: ATORVASTATIN CA 20 MG TABLET (FP) PO SCH (22:05)
[2016-09-17] MEDS ORDERED: SODIUM CHLORIDE 1,000 ML IV SCH (23:15)
[2016-09-18] MEDS: PIPERACILLIN/TAZOB 3.375 GM 50 ML IVPB SCH ×3 (01:30→17:21)
[2016-09-18] MEDS: ALBUTEROL SO4 0.083% IH SOL 2.5 MG/3 ML VIAL.NEB. NEB SCH ×3 (06:40→17:50)
[2016-09-18] MEDS: METOCLOPRAMIDE HCL 10 MG TABLET (FP) PO SCH ×4 (06:53→23:14)
[2016-09-18] MEDS: ACETAMINOPHEN 325 MG TABLET (FP) PO PRN ×3 (06:54→22:57)
[2016-09-18] MEDS: LEVOTHYROXINE NA 50 MCG TABLET (FP) PO SCH (06:55)
[2016-09-18] MEDS: INSULIN DETEMIR 100 UNITS/ML MDV SQ SCH (06:55)
[2016-09-18] MEDS: INSULIN SLIDING SCALE (NOVOLOG) 1 VIAL SQ SCH ×4 (06:55→23:14)
[2016-09-18 07:25] LABS: BILIRUBIN,TOTAL 0.5 mg/dL (0.2-1.0); CALCIUM 8.4 mg/dL (8.5-10.1); COCKROFT - GAULT 55.9555; CREATININE 1.9 mg/dL (0.55-1.02); MAGNESIUM 2.5 mg/dL (1.8-2.4); PHOSPHOROUS 4.2 mg/dL (2.5-4.9); TOT PROT 5.7 g/dl (6.4-8.2)
[2016-09-18 07:32] LABS: BASOPHIL 0.2 % (0-2.0); EOSINOPHIL 0.1 % (0-4.5); MCH 29.3 pg (25.7-33.7); MCHC 31.1 g/dl (32.0-36.0); MEAN CELL VOLUME 94.1 fl (80-96); MEAN PLT VOLUME 9.6 fl (7.5-11.1); NEUTROPHILS 93.8 % (42.8-82.8); PLATELET COUNT 124 K/MM3 (134-434); RDW 16.6 % (11.6-15.6); WHITE BLOOD COUNT 13.8 K/mm3 (4.0-10.0)
[2016-09-18] MEDS: CALCIUM ACETATE 667 MG CAPSULE (FP) PO SCH ×3 (08:34→17:21)
[2016-09-18] MEDS: MAG HYDROX/AL HYDROX/SIMETH 30 ML UNIT-DOSE CUP PO SCH ×2 (09:42→22:57)
[2016-09-18] MEDS: HEPARIN NA (PORCINE) 5,000 UNITS/ML 1ML VIAL SQ SCH ×2 (09:42→23:14)
[2016-09-18] MEDS: SIMETHICONE 80 MG TAB.CHEW (FP) PO SCH ×4 (09:42→22:57)
[2016-09-18] MEDS: DOCUSATE SODIUM 100 MG CAPSULE (FP) PO SCH (09:43)
[2016-09-18] MEDS: METOPROLOL SUCCINATE 25 MG TAB.SR.24H (FP) PO SCH (09:43)
[2016-09-18] MEDS: CYANOCOBALAMIN 1,000 MCG TABLET (FP) PO SCH (09:43)
[2016-09-18] MEDS: FOLIC ACID 1 MG TABLET (FP) PO SCH (09:44)
[2016-09-18] MEDS: LORATADINE 10 MG TABLET PO SCH (09:44)
[2016-09-18] MEDS: POLYETHYLENE GLYCOL 3350 119 GM BTL PO SCH ×2 (09:44→23:17)
[2016-09-18] MEDS: GABAPENTIN 300 MG CAPSULE (FP) PO SCH ×4 (09:44→23:14)
[2016-09-18] MEDS: ASPIRIN COATED 81 MG TABLET.EC PO SCH (09:44)
[2016-09-18] MEDS: FLUTICASONE PROP 0.05% 16 GM NASAL SPRAY NS SCH (09:51)
[2016-09-18] MEDS: NYSTATIN 100,000 UNIT/GM TOPICAL CREAM 15 GM TUBE TP SCH (09:51)
[2016-09-18] MEDS: MUPIROCIN CA 2% TOPICAL CREAM 15 GM TUBE TP SCH ×2 (09:51→23:15)
--- NOTE | 2016-09-18 10:56 | PN ---
Progress Note, Physician History of Present Illness: More awake and alert today No c/o pain Remains febrile with elevated WBC Blood c/s prelim no growth Urine c/s GNR Thrombocytopenia, azotemia worsened - Current Medication List Current Medications: Active Medications Acetaminophen (Tylenol -) 650 mg PO DAILY PRN PRN Reason: PAIN LEVEL 6-10 Last Admin: 09/18/16 06:54 Dose: 650 mg Al Hydroxide/Mg Hydroxide (Mylanta Oral Suspension -) 10 ml PO BID [facility] Last Admin: 09/18/16 09:42 Dose: 10 ml Albuterol Sulfate (Ventolin 0.083% Nebulizer Soln -) 1 amp NEB Q6HPO [facility] Last Admin: 09/18/16 06:40 Dose: 1 amp Aspirin (Ecotrin -) 81 mg PO DAILY [facility] Last Admin: 09/18/16 09:44 Dose: 81 mg Atorvastatin Calcium (Lipitor -) 20 mg PO HS [facility] Last Admin: 09/17/16 22:05 Dose: 20 mg Calcium Acetate (Phoslo -) 667 mg PO TIDCM [facility] Last Admin: 09/18/16 08:34 Dose: 667 mg Cyanocobalamin (Vitamin B12 -) 1,000 mcg PO DAILY [facility] Last Admin: 09/18/16 09:43 Dose: 1,000 mcg Docusate Sodium (Colace -) 200 mg PO DAILY [facility] Last Admin: 09/18/16 09:43 Dose: 200 mg Epoetin Dawood (Procrit -) 10,000 unit SQ Rice@10 JESÚS Fluticasone Propionate (Flonase -) 1 spray NS DAILY [facility] Last Admin: 09/18/16 09:51 Dose: 1 puff Folic Acid (Folic Acid -) 1 mg PO DAILY [facility] Last Admin: 09/18/16 09:44 Dose: 1 mg Gabapentin (Neurontin -) 300 mg PO QID [facility] Last Admin: 09/18/16 09:44 Dose: 300 mg Heparin Sodium (Porcine) (Heparin -) 5,000 unit SQ BID [facility] Last Admin: 09/18/16 09:42 Dose: 5,000 unit Vancomycin HCl (Vancomycin (Pre-Docked)) 250 mls @ 150 mls/hr IVPB DAILY@1200 JESÚS PRN Reason: Protocol Piperacillin Sod/Tazobactam Sod (Zosyn 3.375gm Ivpb (Pre-Docked)) 50 mls @ 100 mls/hr IVPB Q8H-IV JESÚS PRN Reason: Protocol Last Admin: 09/18/16 09:42 Dose: 100 mls/hr Sodium Chloride (Normal Saline -) 1,000 mls @ 50 mls/hr IV ASDIR [facility] Stop: 09/18/16 23:06 Last Admin: 09/18/16 00:00 Dose: 50 mls/hr Insulin Aspart (Novolog Vial Sliding Scale -) 1 vial SQ [facility] PRN Reason: Protocol Last Admin: 09/18/16 06:55 Dose: Not Given Insulin Detemir (Levemir Vial) 10 units SQ ACBK [facility] Last Admin: 09/18/16 06:55 Dose: Not Given Levothyroxine Sodium (Synthroid -) 50 mcg PO ACBK [facility] Last Admin: 09/18/16 06:55 Dose: 50 mcg Loratadine (Claritin -) 10 mg PO DAILY [facility] Last Admin: 09/18/16 09:44 Dose: 10 mg Metoclopramide HCl (Reglan -) 5 mg PO ACHS [facility] Last Admin: 09/18/16 06:53 Dose: 5 mg Metoprolol Succinate (Toprol Xl -) 25 mg PO DAILY [facility] Last Admin: 09/18/16 09:43 Dose: Not Given Mupirocin (Bactroban 2% Cream -) 1 applic TP BID [facility] Last Admin: 09/18/16 09:51 Dose: 1 applic Nystatin (Mycostatin Cream -) 3 applic TP DAILY [facility] Last Admin: 09/18/16 09:51 Dose: 3 applic Oxycodone HCl (Roxicodone -) 5 mg PO Q6H PRN PRN Reason: PAIN Last Admin: 09/17/16 22:03 Dose: 5 mg Polyethylene Glycol (Miralax (For Daily Use) -) 17 gm PO BID [facility] Last Admin: 09/18/16 09:44 Dose: 17 gm Senna (Senna -) 2 tab PO HS [facility] Last Admin: 09/17/16 22:04 Dose: Not Given Simethicone (Mylicon -) 80 mg PO QID [facility] Last Admin: 09/18/16 09:42 Dose: 80 mg - Objective Vital Signs: Vital Signs Temperature 99.7 F H 09/18/16 07:37 Pulse Rate 83 09/18/16 10:49 Respiratory Rate 18 09/18/16 07:54 Blood Pressure 96/40 09/18/16 07:37 O2 Sat by Pulse Oximetry (%) 98 09/18/16 10:49 Constitutional: Yes: Obese Cardiovascular: Yes: Regular Rate and Rhythm, S1, S2 Respiratory: Yes: CTA Bilaterally Gastrointestinal: Yes: Normal Bowel Sounds, Soft, Abdomen, Obese. No: Tenderness Extremities: Yes: Other (S/P L BKA Chronic lymphedema R LE) Labs: CBC, BMP 09/18/16 05:35 09/18/16 05:35 INR, PTT INR 1.22 (0.82-1.09) H 09/16/16 10:53 Assessment/Plan UTI /Possible sepsis secondary to UTI Fever/ leukocytosis Thrombocytopenia Azotemia Await urine c/s Continue empiric zosyn
--- NOTE | 2016-09-18 11:26 | PN ---
Progress Note, Physician Chief Complaint: RLE pain and cold foot, was borderline hypoTA; all BP meds held; on IVF low dose ; if BP not better might need pressors creat 1.9; worse - Current Medication List Current Medications: Active Medications Acetaminophen (Tylenol -) 650 mg PO DAILY PRN PRN Reason: PAIN LEVEL 6-10 Last Admin: 09/18/16 06:54 Dose: 650 mg Al Hydroxide/Mg Hydroxide (Mylanta Oral Suspension -) 10 ml PO BID [facility] Last Admin: 09/18/16 09:42 Dose: 10 ml Albuterol Sulfate (Ventolin 0.083% Nebulizer Soln -) 1 amp NEB Q6HPO [facility] Last Admin: 09/18/16 06:40 Dose: 1 amp Aspirin (Ecotrin -) 81 mg PO DAILY [facility] Last Admin: 09/18/16 09:44 Dose: 81 mg Atorvastatin Calcium (Lipitor -) 20 mg PO HS [facility] Last Admin: 09/17/16 22:05 Dose: 20 mg Calcium Acetate (Phoslo -) 667 mg PO TIDCM [facility] Last Admin: 09/18/16 08:34 Dose: 667 mg Cyanocobalamin (Vitamin B12 -) 1,000 mcg PO DAILY [facility] Last Admin: 09/18/16 09:43 Dose: 1,000 mcg Docusate Sodium (Colace -) 200 mg PO DAILY [facility] Last Admin: 09/18/16 09:43 Dose: 200 mg Epoetin Dawood (Procrit -) 10,000 unit SQ Rice@10 [facility] Fluticasone Propionate (Flonase -) 1 spray NS DAILY [facility] Last Admin: 09/18/16 09:51 Dose: 1 puff Folic Acid (Folic Acid -) 1 mg PO DAILY [facility] Last Admin: 09/18/16 09:44 Dose: 1 mg Gabapentin (Neurontin -) 300 mg PO QID [facility] Last Admin: 09/18/16 09:44 Dose: 300 mg Heparin Sodium (Porcine) (Heparin -) 5,000 unit SQ BID [facility] Last Admin: 09/18/16 09:42 Dose: 5,000 unit Vancomycin HCl (Vancomycin (Pre-Docked)) 250 mls @ 150 mls/hr IVPB DAILY@1200 [facility] PRN Reason: Protocol Piperacillin Sod/Tazobactam Sod (Zosyn 3.375gm Ivpb (Pre-Docked)) 50 mls @ 100 mls/hr IVPB Q8H-IV [facility] PRN Reason: Protocol Last Admin: 09/18/16 09:42 Dose: 100 mls/hr Sodium Chloride (Normal Saline -) 1,000 mls @ 50 mls/hr IV ASDIR [facility] Stop: 09/18/16 23:06 Last Admin: 09/18/16 00:00 Dose: 50 mls/hr Insulin Aspart (Novolog Vial Sliding Scale -) 1 vial SQ ACHS [facility] PRN Reason: Protocol Last Admin: 09/18/16 06:55 Dose: Not Given Insulin Detemir (Levemir Vial) 10 units SQ ACBK [facility] Last Admin: 09/18/16 06:55 Dose: Not Given Levothyroxine Sodium (Synthroid -) 50 mcg PO ACBK [facility] Last Admin: 09/18/16 06:55 Dose: 50 mcg Loratadine (Claritin -) 10 mg PO DAILY [facility] Last Admin: 09/18/16 09:44 Dose: 10 mg Metoclopramide HCl (Reglan -) 5 mg PO ACHS [facility] Last Admin: 09/18/16 06:53 Dose: 5 mg Metoprolol Succinate (Toprol Xl -) 25 mg PO DAILY [facility] Last Admin: 09/18/16 09:43 Dose: Not Given Mupirocin (Bactroban 2% Cream -) 1 applic TP BID [facility] Last Admin: 09/18/16 09:51 Dose: 1 applic Nystatin (Mycostatin Cream -) 3 applic TP DAILY [facility] Last Admin: 09/18/16 09:51 Dose: 3 applic Oxycodone HCl (Roxicodone -) 5 mg PO Q6H PRN PRN Reason: PAIN Last Admin: 09/17/16 22:03 Dose: 5 mg Polyethylene Glycol (Miralax (For Daily Use) -) 17 gm PO BID [facility] Last Admin: 09/18/16 09:44 Dose: 17 gm Senna (Senna -) 2 tab PO HS [facility] Last Admin: 09/17/16 22:04 Dose: Not Given Simethicone (Mylicon -) 80 mg PO QID [facility] Last Admin: 09/18/16 09:42 Dose: 80 mg - Objective Vital Signs: Vital Signs Temperature 99.7 F H 09/18/16 07:37 Pulse Rate 83 09/18/16 10:49 Respiratory Rate 18 09/18/16 07:54 Blood Pressure 96/40 09/18/16 07:37 O2 Sat by Pulse Oximetry (%) 98 09/18/16 10:49 Constitutional: Yes: No Distress, Anxious Eyes: Yes: Conjunctiva Clear HENT: Yes: Atraumatic Neck: Yes: Supple Cardiovascular: Yes: Regular Rate and Rhythm Respiratory: Yes: Diminished Gastrointestinal: Yes: Soft, Abdomen, Obese. No: Distention, Tenderness Genitourinary: No: Hematuria Musculoskeletal: No: Joint Stiffness, Joint Swelling Extremities: Yes: Cold (R foot), Cool (r foot) Edema: Yes (RLE lymphedema) Integumentary: Yes: Rash (RLE; R axilla; around neck) Neurological: Yes: Alert, Oriented ...Motor Strength: WNL (functional quadriplegia) Psychiatric: Yes: Alert, Oriented. No: Agitated, Suicidal Ideation Labs: CBC, BMP 09/18/16 05:35 09/18/16 05:35 INR, PTT INR 1.22 (0.82-1.09) H 09/16/16 10:53 - ....Imaging Other: Report Reviewed Assessment/Plan The patient is a 71 year old female brought via EMS from [facility], with a significant past medical history of Hypothyroidism, Diabetes, HTN, CHF, GA x2, (on home O2, 2L), left BKA, anemia, essential tremors, CAD, GERD, CKD and obesity, admitted with UTI, RLE cellulitis, neck and R axilla rash looks like fungic; sepsis, low BP/ r/o septic shock; R foot cold r/o ischemia - surgery eval ARF worsening creatinine, renal consult f/u; renal US admitted to monitored unit IVF gentle hydration (h/o CHF fluid overload) broad spectrum ATB topical nystatin hold BP meds check blood cx, UCx; ID, cardiology f/u f/u labs DVT falls decubs and aspiration PFX HOB BGM, DM control; borderline low GLU sec to sepsis; cut down insulin sq prognosis guarded d/w pt and staff d/w pt's sister Patricia ([facility]) and I called pt's other sister Guerline ([place]) [phone] t time 45 min
--- NOTE | 2016-09-18 11:58 | PN ---
Progress Note (short form) - Note Progress Note: CC: trop elevation S: no cp, palps, sob, dizziness LE edema stable Current Medications Generic Name Dose Route Start Last Admin Trade Name Cheryle PRN Reason Stop Dose Admin Acetaminophen 650 mg 09/16/16 19:39 09/18/16 06:54 Tylenol - PO 650 mg DAILY PRN Administration PAIN LEVEL 6-10 Al Hydroxide/Mg Hydroxide 10 ml 09/16/16 22:00 09/18/16 09:42 Mylanta Oral Suspension - PO 10 ml BID [facility] Administration Albuterol Sulfate 1 amp 09/16/16 19:15 09/18/16 06:40 Ventolin 0.083% Nebulizer Soln - NEB 1 amp Q6HPO [facility] Administration Aspirin 81 mg 09/17/16 10:00 09/18/16 09:44 Ecotrin - PO 81 mg DAILY [facility] Administration Atorvastatin Calcium 20 mg 09/16/16 22:00 09/17/16 22:05 Lipitor - PO 20 mg HS [facility] Administration Calcium Acetate 667 mg 09/17/16 08:00 09/18/16 11:43 Phoslo - PO 667 mg TIDCM [facility] Administration Cyanocobalamin 1,000 mcg 09/17/16 10:00 09/18/16 09:43 Vitamin B12 - PO 1,000 mcg DAILY [facility] Administration Docusate Sodium 200 mg 09/17/16 10:00 09/18/16 09:43 Colace - PO 200 mg DAILY [facility] Administration Epoetin Dawood 10,000 unit 09/22/16 10:00 Procrit - SQ Rice@10 [facility] Fluticasone Propionate 1 spray 09/17/16 10:00 09/18/16 09:51 Flonase - NS 1 puff DAILY [facility] Administration Folic Acid 1 mg 09/17/16 10:00 09/18/16 09:44 Folic Acid - PO 1 mg DAILY [facility] Administration Gabapentin 300 mg 09/16/16 22:00 09/18/16 09:44 Neurontin - PO 300 mg QID [facility] Administration Heparin Sodium (Porcine) 5,000 unit 09/16/16 22:00 09/18/16 09:42 Heparin - SQ 5,000 unit BID [facility] Administration Vancomycin HCl 250 mls @ 150 mls/hr 09/17/16 12:00 Vancomycin (Pre-Docked) IVPB DAILY@1200 [facility] Protocol Piperacillin Sod/Tazobactam Sod 50 mls @ 100 mls/hr 09/17/16 12:00 09/18/16 09: 42 Zosyn 3.375gm Ivpb (Pre-Docked) IVPB 100 mls/hr Q8H-IV [facility] Administration Protocol Sodium Chloride 1,000 mls @ 50 mls/hr 09/17/16 23:15 09/18/16 00:00 Normal Saline - IV 09/18/16 23:06 50 mls/hr ASDIR [facility] Administration Insulin Aspart 1 vial 09/16/16 22:00 09/18/16 11:43 Novolog Vial Sliding Scale - SQ Not Given ACHS [facility] Protocol Insulin Detemir 10 units 09/17/16 10:18 09/18/16 06:55 Levemir Vial SQ Not Given ACBK [facility] Levothyroxine Sodium 50 mcg 09/17/16 07:00 09/18/16 06:55 Synthroid - PO 50 mcg ACBK [facility] Administration Loratadine 10 mg 09/17/16 10:00 09/18/16 09:44 Claritin - PO 10 mg DAILY [facility] Administration Metoclopramide HCl 5 mg 09/16/16 22:00 09/18/16 11:43 Reglan - PO 5 mg ACHS [facility] Administration Metoprolol Succinate 25 mg 09/17/16 10:00 09/18/16 09:43 Toprol Xl - PO Not Given DAILY [facility] Mupirocin 1 applic 09/16/16 22:00 09/18/16 09:51 Bactroban 2% Cream - TP 1 applic BID [facility] Administration Nystatin 3 applic 09/17/16 10:00 09/18/16 09:51 Mycostatin Cream - TP 3 applic DAILY [facility] Administration Oxycodone HCl 5 mg 09/16/16 19:11 09/17/16 22:03 Roxicodone - PO 5 mg Q6H PRN Administration PAIN Polyethylene Glycol 17 gm 09/16/16 22:00 09/18/16 09:44 Miralax (For Daily Use) - PO 17 gm BID [facility] Administration Senna 2 tab 09/16/16 22:00 09/17/16 22:04 Senna - PO Not Given HS [facility] Simethicone 80 mg 09/16/16 22:00 09/18/16 09:42 Mylicon - PO 80 mg QID [facility] Administration Vital Signs Period Temp Pulse Resp BP Sys/Hagan Pulse Ox Last 24 Hr 99.0 F-101 F 59-92 18-18 81-105/31-42 93-98 NAD, obese, jvd tds RRR nl s1, s2 2/6 murmur at sternal border and apex scattered rhonchi bl, poor effort + bs soft obese edematous nt +distension diminished distal pulses. s/p lt bka trace le edema erythema/venous stasis changes/skin excoriations and [place] changes of LE skin aaox3 no carotid bruit no jaundice diaphoresis Laboratory Last Values WBC 13.8 K/mm3 (4.0-10.0) H 09/18/16 05:35 RBC 3.07 M/mm3 (3.60-5.2) L 09/18/16 05:35 Hgb 9.0 GM/dL (10.7-15.3) L D 09/18/16 05:35 Hct 28.9 % (32.4-45.2) L 09/18/16 05:35 MCV 94.1 fl (80-96) 09/18/16 05:35 MCHC 31.1 g/dl (32.0-36.0) L 09/18/16 05:35 RDW 16.6 % (11.6-15.6) H 09/18/16 05:35 Plt Count 124 K/MM3 (134-434) L D 09/18/16 05:35 MPV 9.6 fl (7.5-11.1) 09/18/16 05:35 Neutrophils % 93.8 % (42.8-82.8) H 09/18/16 05:35 Lymphocytes % 1.7 % (8-40) L D 09/18/16 05:35 Monocytes % 4.2 % (3.8-10.2) 09/18/16 05:35 Eosinophils % 0.1 % (0-4.5) 09/18/16 05:35 Basophils % 0.2 % (0-2.0) 09/18/16 05:35 INR 1.22 (0.82-1.09) H 09/16/16 10:53 PTT (Actin FS) 30.4 SECONDS (26.9-34.4) 09/16/16 10:53 VBG pH 7.36 (7.32-7.42) 09/16/16 10:53 POC VBG pCO2 45.7 mmHg (38-52) D 09/16/16 10:53 POC VBG pO2 54.8 mmHg (28-48) H D 09/16/16 10:53 Mixed VBG HCO3 25.4 meq/L (19-25) H 09/16/16 10:53 Sodium 140 mmol/L (136-145) 09/18/16 05:35 Potassium 5.1 mmol/L (3.5-5.1) 09/18/16 05:35 Chloride 102 mmol/L (98-107) 09/18/16 05:35 Carbon Dioxide 25 mmol/L (21-32) 09/18/16 05:35 Anion Gap 13 (8-16) 09/18/16 05:35 BUN 92 mg/dL (7-18) H 09/18/16 05:35 Creatinine 1.9 mg/dL (0.55-1.02) H D 09/18/16 05:35 Creat Clearance w eGFR 25.98 (>60) 09/18/16 05:35 POC Glucometer 116 UNITS (()) 09/18/16 11:11 Random Glucose 77 mg/dL (74-106) D 09/18/16 05:35 Lactic Acid 1.339 mmol/L (0.4-2.0) 09/16/16 10:53 Calcium 8.4 mg/dL (8.5-10.1) L 09/18/16 05:35 Phosphorus 4.2 mg/dL (2.5-4.9) D 09/18/16 05:35 Magnesium 2.5 mg/dL (1.8-2.4) H D 09/18/16 05:35 Total Bilirubin 0.5 mg/dL (0.2-1.0) 09/18/16 05:35 AST 61 U/L (15-37) H D 09/18/16 05:35 ALT 18 U/L (12-78) D 09/18/16 05:35 Alkaline Phosphatase 82 U/L (45-117) 09/18/16 05:35 Creatine Kinase 63 IU/L (26-192) 09/16/16 10:53 Troponin I 0.22 ng/ml (0.00-0.05) H 09/16/16 10:53 Total Protein 5.7 g/dl (6.4-8.2) L 09/18/16 05:35 Albumin 2.0 g/dl (3.4-5.0) L 09/18/16 05:35 Urine Color Ltyellow 09/16/16 12:00 Urine Appearance Slcloudy 09/16/16 12:00 Urine pH 6.0 (5.0-8.0) 09/16/16 12:00 Ur Specific Preston <= 1.005 (1.005-1.025) 09/16/16 12:00 Urine Protein 2+ (NEGATIVE) H 09/16/16 12:00 Urine Glucose (UA) Negative (NEGATIVE) 09/16/16 12:00 Urine Ketones Negative (NEGATIVE) 09/16/16 12:00 Urine Blood 1+ (NEGATIVE) H 09/16/16 12:00 Urine Nitrite Negative (NEGATIVE) 09/16/16 12:00 Urine Bilirubin Negative (NEGATIVE) 09/16/16 12:00 Urine Urobilinogen Negative E.U./dl (0.2-1.0) 09/16/16 12:00 Ur Leukocyte Esterase 3+ (NEGATIVE) H 09/16/16 12:00 Urine RBC 3 /hpf (0-3) 09/16/16 12:00 Urine WBC 75 /hpf (3-5) 09/16/16 12:00 Ur Epithelial Cells Rare /hpf (FEW) 09/16/16 12:00 Urine Bacteria Rare /hpf (NONE SEEN) 09/16/16 12:00 Urine Yeast Few 09/16/16 12:00 Blood Type O POSITIVE 09/16/16 10:53 Antibody Screen Positive H 09/16/16 10:53 Prewarmed Antibody Srcn Negative 09/16/16 10:53 Antibody Identification No Result Required. 09/16/16 10:53 Antigen Identification Y 09/16/16 10:53 Direct Antiglob Test Positive (NEGATIVE) H 09/16/16 10:53 EKG here: stach, 105 bpm. poor r wave progression. non- specific tw changes, no sig change from prior tele: sr Echo 07/01/2016: Mild decr EF. paradoxical septal motion with mild HK of anteroseptum. RV not seen. 1+ mr/tr. mild (although MG only 12 mmHg). Echo 06/2015: mild-mod decr EF--global; nl RV; mild LAE; mild-mod MR/TR; RVSP 30- 40; small peric effusion; + pleural eff cxr: tds a/p: 71 yo with h/o HFpEF, CAD s/p SC, HTN, HL, pHTN, MIRIAM, o2 dep't copd, CKD, IDDM, hypothyroid and chronic LLE cellulitis/lt foot gangrene s/p L BKA, here with n/ v. intermediate troponin elevation/CAD -has previously refused stress tests. h/o prior NSTEMI x 2 (2012, 2014) in setting of demand (sepsis/anemia). Con't JUAN ANTONIO, but current elevation likely in setting of demand. -cath previously deferred due to: pt preference; hi risk of vascular complications (obese habitus), hi risk of BERNARDINO, and h/o recurrent anemia, possible occult GIB -currently without anginal sx's. EKG unchanged. Con't statin, BB, asa, imdur as bp tolerates -MATEO deferred previously due to labile creat's--no change; chronic foot wound, gangrene, now s/p bka 07/03/16: - per pmd/vascular chronic HFpEF/pulm HTN/venous ins'y/acute on chronic hypoxic and hypercapneic resp failure: - mild systolic dysfunction, presumed RV dysfunction. - pt currently on IVF with fever, concern for infection. hold diuresis for now. Patient with chronic third spacing and total body volume overload, but intermittently with vascular depletion. Agree with IVF. - Abdomen tense and distended, abd u/s --> no ascites - strict I/O's. Bed weights if possible. PSVT: -likely brief run of ATach on prior tele, no recurrence -con't bb as bp tolerates VTach: -17 beat run of NSVT on prior tele (previous admit), no recurrence -K/Mag repletion prn -con't bb as bp tolerates CKD - cr above baseline, monitor with ivfs, holding diuretics MIRIAM - on bipap qhs. anemia: -chronic, baseline runs 8s-9s; -freq acute drops/PRBCs in past; currently above baseline. HTN: -controlled. monitor for hypotension in setting of infection - con't home bp meds, as bp tolerates. bp decreasing --> currently holding imdur.
--- NOTE | 2016-09-18 13:33 | PN ---
Progress Note (short form) - Note Progress Note: Renal Follow up for CRISTELA on CKD Pt seen and examined at the bedside awake and alert on NC no acute complaints denies any sob, chest pain, N/V/D Vital Signs Temperature 99.7 F H 09/18/16 07:37 Pulse Rate 83 09/18/16 10:49 Respiratory Rate 18 09/18/16 07:54 Blood Pressure 96/40 09/18/16 07:37 O2 Sat by Pulse Oximetry (%) 98 09/18/16 10:49 Intake & Output 09/15/16 09/16/16 09/17/16 09/18/16 23:59 23:59 23:59 23:59 Intake Total 550 550 Balance 550 550 Weight 279 lb 292 lb Gen: NAD, awake and alert HEENT: NC/AT, No JVD CVS: RRR, No M/R Lungs: Dec BS at the lung bases Abd: soft NT/ND Ext: 2+ lymphedema Neuro:AAOx3, no focal defects CBC, BMP 09/18/16 05:35 09/18/16 05:35 Laboratory Tests 09/18/16 05:35 Calcium 8.4 L Phosphorus 4.2 D Magnesium 2.5 H D Albumin 2.0 L Current Medications Acetaminophen (Tylenol -) 650 mg PO DAILY PRN PRN Reason: PAIN LEVEL 6-10 Last Admin: 09/18/16 06:54 Dose: 650 mg Al Hydroxide/Mg Hydroxide (Mylanta Oral Suspension -) 10 ml PO BID [facility] Last Admin: 09/18/16 09:42 Dose: 10 ml Albuterol Sulfate (Ventolin 0.083% Nebulizer Soln -) 1 amp NEB Q6HPO [facility] Last Admin: 09/18/16 12:03 Dose: 1 amp Aspirin (Ecotrin -) 81 mg PO DAILY [facility] Last Admin: 09/18/16 09:44 Dose: 81 mg Atorvastatin Calcium (Lipitor -) 20 mg PO HS [facility] Last Admin: 09/17/16 22:05 Dose: 20 mg Calcium Acetate (Phoslo -) 667 mg PO TIDCM [facility] Last Admin: 09/18/16 11:43 Dose: 667 mg Cyanocobalamin (Vitamin B12 -) 1,000 mcg PO DAILY [facility] Last Admin: 09/18/16 09:43 Dose: 1,000 mcg Docusate Sodium (Colace -) 200 mg PO DAILY [facility] Last Admin: 09/18/16 09:43 Dose: 200 mg Epoetin Dawood (Procrit -) 10,000 unit SQ Rice@10 [facility] Fluticasone Propionate (Flonase -) 1 spray NS DAILY [facility] Last Admin: 09/18/16 09:51 Dose: 1 puff Folic Acid (Folic Acid -) 1 mg PO DAILY [facility] Last Admin: 09/18/16 09:44 Dose: 1 mg Gabapentin (Neurontin -) 300 mg PO QID [facility] Last Admin: 09/18/16 09:44 Dose: 300 mg Heparin Sodium (Porcine) (Heparin -) 5,000 unit SQ BID [facility] Last Admin: 09/18/16 09:42 Dose: 5,000 unit Vancomycin HCl (Vancomycin (Pre-Docked)) 250 mls @ 150 mls/hr IVPB DAILY@1200 [facility] PRN Reason: Protocol Piperacillin Sod/Tazobactam Sod (Zosyn 3.375gm Ivpb (Pre-Docked)) 50 mls @ 100 mls/hr IVPB Q8H-IV [facility] PRN Reason: Protocol Last Admin: 09/18/16 09:42 Dose: 100 mls/hr Sodium Chloride (Normal Saline -) 1,000 mls @ 50 mls/hr IV ASDIR [facility] Stop: 09/18/16 23:06 Last Admin: 09/18/16 00:00 Dose: 50 mls/hr Insulin Aspart (Novolog Vial Sliding Scale -) 1 vial SQ [facility] PRN Reason: Protocol Last Admin: 09/18/16 11:43 Dose: Not Given Insulin Detemir (Levemir Vial) 10 units SQ ACBK [facility] Last Admin: 09/18/16 06:55 Dose: Not Given Levothyroxine Sodium (Synthroid -) 50 mcg PO ACBK [facility] Last Admin: 09/18/16 06:55 Dose: 50 mcg Loratadine (Claritin -) 10 mg PO DAILY [facility] Last Admin: 09/18/16 09:44 Dose: 10 mg Metoclopramide HCl (Reglan -) 5 mg PO ACHS [facility] Last Admin: 09/18/16 11:43 Dose: 5 mg Metoprolol Succinate (Toprol Xl -) 25 mg PO DAILY [facility] Mupirocin (Bactroban 2% Cream -) 1 applic TP BID [facility] Last Admin: 09/18/16 09:51 Dose: 1 applic Nystatin (Mycostatin Cream -) 3 applic TP DAILY [facility] Last Admin: 09/18/16 09:51 Dose: 3 applic Oxycodone HCl (Roxicodone -) 5 mg PO Q6H PRN PRN Reason: PAIN Last Admin: 09/17/16 22:03 Dose: 5 mg Polyethylene Glycol (Miralax (For Daily Use) -) 17 gm PO BID [facility] Last Admin: 09/18/16 09:44 Dose: 17 gm Senna (Senna -) 2 tab PO HS [facility] Last Admin: 09/17/16 22:04 Dose: Not Given Simethicone (Mylicon -) 80 mg PO QID [facility] Last Admin: 09/18/16 09:42 Dose: 80 mg A/P 71 year old woman with PMhx of CKD stage 3 w/o significant proteinuria, CHF, COPD, PVD, Chronic LE lymphedema, IDDM, CAD who presented wit fever with BUN/Cr of 85/1.5 and K of 5..5. #CRISTELA on CKD Cr uptrended to 1.9 BP remains marginal, and pt with signs of intravascular volume depletion in setting of infection continue IVF for now, increase rate trend BUN/Cr unable to collect urine studies #Hyperkalemia from intravascular volume depletion/renal insufficiency improved today Low K diet started #Fever f/u cultures continue empiric Abx #Normocytic Anemia Check iron studies, stool occult blood continue Epogen 3x weekly no indication for transfusion Thank you Lambert Mcnamara DO
[2016-09-18] MEDS ORDERED: SODIUM CHLORIDE 500 ML IV STA (13:37)
[2016-09-18] MEDS: SODIUM CHLORIDE 1,000 ML IV SCH (14:11)
--- NOTE | 2016-09-18 15:54 | CONSULT ---
- Consultation REQUESTING PROVIDER: Gaurav Alonso CONSULT REQUEST: We have been asked to surgically evaluate this patient's right foot to r/o ischemia PCP: Amina Wong History Source: Patient, Long Term Records, Hospital Medical Records HPI: Called to evkathy 71 yo female with PMHx as noted below. Comes to [facility] w/ c/ o... Patient is well know to Surgery Service as we performed her LLE BKA . Medicine wants us to evaluate her right foot to r/o ischemia. Resting in position of comfort without complaints. Deneis n/v/f/c, CP, SOB, irregular heart beat Patient is DNR as per assisted paperwork. PMHx: Hypothyroidism, IDDM (with neuroapthy), HTN, CHF, SD x2, (on home O2, 2L) , anemia, essential tremors, CAD, GERD, CKD stage 3, obesity, COPD, PVD, Chronic LE lymphedema PSHx: Left BKA Home Meds Aa/Hydrolyzed Collagen, Whey [Lps Neutral Flavor Liquid] 30 ml PO DAILY Acetaminophen 2 tab PO DAILY 09/16/16 Albuterol 0.083% Nebulizer Adina [Ventolin 0.083% Nebulizer Soln -] 1 neb NEB Q6H 09/16/16 Aspirin Coated [Ecotrin -] 81 mg PO DAILY 09/16/16 Calcium Acetate 667 mg PO TID 09/16/16 Cyanocobalamin (Vitamin B-12) [Vitamin B-12] 1,000 mcg SL DAILY 09/16/16 Docusate Sodium [Colace -] 200 mg PO DAILY 09/16/16 Epoetin Dawood [Procrit] 10,000 unit SQ WEEKLY 09/16/16 Fluticasone Prop 0.05% Nasal [Flonase -] 1 spray NS DAILY 09/16/16 Folic Acid 1 mg PO DAILY 09/16/16 Gabapentin [Neurontin -] 300 mg PO QID 09/16/16 Heparin - 5,000 unit SQ BID 09/16/16 Insulin (Levemir) [Levemir Flexpen -] 20 units SQ DAILY 09/16/16 Insulin Regular [NOVOLIN R VIAL *IVPUSH / ER / ICU Only*] 0 units SQ QID Isosorbide Mononitrate [Isosorbide Mononitrate ER] 30 mg PO DAILY 09/16/16 Levothyroxine [Synthroid -] 50 mcg PO DAILY 09/16/16 Loratadine [Claritin -] 10 mg PO DAILY 09/16/16 Mag Hydrox/Al Hydrox/Simeth [Jigna-Lanta Liquid] 10 ml PO BID 09/16/16 Metoclopramide HCl [Reglan] 5 mg PO QID 09/16/16 Metoprolol Succinate [Toprol Xl -] 25 mg PO DAILY 09/16/16 Mupirocin Cream [Bactroban 2% Cream -] 1 applic TP BID 09/16/16 Nystatin Cream [Mycostatin Cream -] 3 applic TP DAILY 09/16/16 Oxycodone HCl [Roxicodone -] 5 mg PO Q6H PRN 09/16/16 Polyethylene Glycol 3350 [Miralax (For Daily Use) -] 17 gm PO BID 09/16/16 Sennosides [Senna] 2 tab PO HS 09/16/16 Simethicone [Mi-Acid] 80 mg PO QID 09/16/16 Simvastatin [Zocor -] 40 mg PO HS 09/16/16 Torsemide [Demadex] 20 mg PO DAILY 09/16/16 Allergies Sulfas, tuberculin, purified protein derivative, tuberculin,PPD,multi-puncture, ppd ROS: All systems reviewed and considered negative except for what's contained in HPI. PE: GENERAL: NAD LUNGS: scattered rhonchi throughout HEART: RRR ABDOMEN: Obese. Soft, NT LE: LLE BKA incision healed well. Small fluid filled blister to lateral portion of surgical scar. RLE: +2 lymphedema. Warm, Erythema/venous stasis skin changes. Palpate PT. Hard to assess DP due to edema of forefoot. No pain with movement. Ecchymosis to lateral aspect of forefoot. Cool to touch PSYCH: Cooperative. Good eye contact. Appropriate mood and affect. Last Vital Signs Temp Pulse Resp BP Pulse Ox 99.7 F H 92 H 18 106/44 98 09/18/16 14:36 09/18/16 14:36 09/18/16 14:36 09/18/16 14:36 09/18/16 10:49 CBC, BMP 09/18/16 05:35 09/18/16 05:35 INR, PTT INR 1.22 (0.82-1.09) H 09/16/16 10:53 Urine Test Results Urine Color Ltyellow 09/16/16 12:00 Urine Appearance Slcloudy 09/16/16 12:00 Urine pH 6.0 (5.0-8.0) 09/16/16 12:00 Ur Specific [place] <= 1.005 (1.005-1.025) 09/16/16 12:00 Urine Protein 2+ (NEGATIVE) H 09/16/16 12:00 Urine Glucose (UA) Negative (NEGATIVE) 09/16/16 12:00 Urine Ketones Negative (NEGATIVE) 09/16/16 12:00 Urine Blood 1+ (NEGATIVE) H 09/16/16 12:00 Urine Nitrite Negative (NEGATIVE) 09/16/16 12:00 Urine Bilirubin Negative (NEGATIVE) 09/16/16 12:00 Ur Leukocyte Esterase 3+ (NEGATIVE) H 09/16/16 12:00 Urine RBC 3 /hpf (0-3) 09/16/16 12:00 Urine WBC 75 /hpf (3-5) 09/16/16 12:00 Ur Epithelial Cells Rare /hpf (FEW) 09/16/16 12:00 Urine Bacteria Rare /hpf (NONE SEEN) 09/16/16 12:00 Microbiology 09/16/16 12:00 Urine - Urine - Catheterized Urine Culture - Final Morganella Morganii 09/16/16 10:53 Blood - Peripheral Venous Blood Culture - Prelim NO GROWTH AFTER 48 HOURS, INCUBATION TO CONTINUE x 3 days Problem List - Problems (1) Lymphedema of right lower extremity Assessment/Plan: Light compression and elevation Code(s): I89.0 - LYMPHEDEMA, NOT ELSEWHERE CLASSIFIED (2) UTI (urinary tract infection) Assessment/Plan: Urine culture --> Morganella Morganii IV ABX per ID Code(s): N39.0 - URINARY TRACT INFECTION, SITE NOT SPECIFIED Qualifiers: Urinary tract infection type: acute cystitis Hematuria presence: without hematuria Qualified Code(s): N30.00 - Acute cystitis without hematuria (3) Diabetes Assessment/Plan: Tight glycemic control Sliding scale Code(s): E11.9 - TYPE 2 DIABETES MELLITUS WITHOUT COMPLICATIONS Qualifiers: Diabetes mellitus complication detail: with diabetic retinopathy (4) CKD (chronic kidney disease), stage III Assessment/Plan: Monitor BUN/Cr Renal following Code(s): N18.3 - CHRONIC KIDNEY DISEASE, STAGE 3 (MODERATE) Visit type - Case Type Case Type: ED Admission - Emergency Emergency Visit: Yes ED Registration Date: 09/16/16 Care time: The patient presented to the Emergency Department on the above date and was hospitalized for further evaluation of their emergent condition. - New patient This patient is new to me today: Yes Date on this admission: 09/18/16
--- NOTE | 2016-09-18 20:29 | PN ---
Progress Note (short form) - Note Progress Note: Vascular Surgery Pt seen and examined. Here for UTI Called to evaluate right leg. Right leg is warm until right foot. Right foot is cool to touch. Will watch foot for now. Pt is septic. Will see how pt does on antibiotics. Gaurav massey DO
[2016-09-18] MEDS: SENNOSIDES 8.6MG TABLET (FP) PO SCH (23:14)
[2016-09-18] MEDS: ATORVASTATIN CA 20 MG TABLET (FP) PO SCH (23:15)
[2016-09-19] MEDS: PIPERACILLIN/TAZOB 3.375 GM 50 ML IVPB SCH ×2 (02:04→09:25)
[2016-09-19] MEDS: INSULIN SLIDING SCALE (NOVOLOG) 1 VIAL SQ SCH ×4 (06:50→22:37)
[2016-09-19] MEDS: INSULIN DETEMIR 100 UNITS/ML MDV SQ SCH (06:50)
[2016-09-19] MEDS: METOCLOPRAMIDE HCL 10 MG TABLET (FP) PO SCH ×4 (06:51→22:38)
[2016-09-19] MEDS: LEVOTHYROXINE NA 50 MCG TABLET (FP) PO SCH (06:51)
[2016-09-19 08:01] LABS: BASOPHIL 0.3 % (0-2.0); EOSINOPHIL 0.7 % (0-4.5); MCH 29.1 pg (25.7-33.7); MCHC 31.1 g/dl (32.0-36.0); MEAN CELL VOLUME 93.5 fl (80-96); MEAN PLT VOLUME 9.6 fl (7.5-11.1); NEUTROPHILS 92.3 % (42.8-82.8); PLATELET COUNT 120 K/MM3 (134-434); RDW 16.3 % (11.6-15.6); WHITE BLOOD COUNT 17.4 K/mm3 (4.0-10.0)
[2016-09-19 08:03] LABS: BILIRUBIN,TOTAL 0.8 mg/dL (0.2-1.0); CALCIUM 8.1 mg/dL (8.5-10.1); COCKROFT - GAULT 55.9555; CREATININE 1.9 mg/dL (0.55-1.02); MAGNESIUM 2.6 mg/dL (1.8-2.4); TOT PROT 5.9 g/dl (6.4-8.2)
[2016-09-19] MEDS: CALCIUM ACETATE 667 MG CAPSULE (FP) PO SCH ×3 (08:26→17:20)
[2016-09-19] MEDS: MAG HYDROX/AL HYDROX/SIMETH 30 ML UNIT-DOSE CUP PO SCH ×2 (09:25→22:37)
[2016-09-19] MEDS: ACETAMINOPHEN 325 MG TABLET (FP) PO PRN (09:27)
[2016-09-19] MEDS: oxyCODONE HCL 5 MG TABLET PO PRN (09:27)
[2016-09-19] MEDS: LORATADINE 10 MG TABLET PO SCH (09:27)
[2016-09-19] MEDS: CYANOCOBALAMIN 1,000 MCG TABLET (FP) PO SCH (09:28)
[2016-09-19] MEDS: ASPIRIN COATED 81 MG TABLET.EC PO SCH (09:28)
[2016-09-19] MEDS: SIMETHICONE 80 MG TAB.CHEW (FP) PO SCH ×4 (09:28→22:37)
[2016-09-19] MEDS: FOLIC ACID 1 MG TABLET (FP) PO SCH (09:28)
[2016-09-19] MEDS: METOPROLOL SUCCINATE 25 MG TAB.SR.24H (FP) PO SCH (09:28)
[2016-09-19] MEDS: HEPARIN NA (PORCINE) 5,000 UNITS/ML 1ML VIAL SQ SCH ×2 (09:28→22:36)
[2016-09-19] MEDS: GABAPENTIN 300 MG CAPSULE (FP) PO SCH ×4 (09:28→22:37)
[2016-09-19] MEDS: DOCUSATE SODIUM 100 MG CAPSULE (FP) PO SCH (09:28)
[2016-09-19] MEDS: FLUTICASONE PROP 0.05% 16 GM NASAL SPRAY NS SCH (09:31)
[2016-09-19] MEDS: MUPIROCIN CA 2% TOPICAL CREAM 15 GM TUBE TP SCH ×2 (09:32→22:18)
[2016-09-19] MEDS: NYSTATIN 100,000 UNIT/GM TOPICAL CREAM 15 GM TUBE TP SCH (09:32)
[2016-09-19] MEDS: POLYETHYLENE GLYCOL 3350 119 GM BTL PO SCH ×2 (09:32→22:40)
--- NOTE | 2016-09-19 10:40 | PN ---
Progress Note, Physician History of Present Illness: Awake, responsive No complaints Temps down- low grade Leukocytosis, thrombocytopenia worsened Azotemic - Current Medication List Current Medications: Active Medications Acetaminophen (Tylenol -) 650 mg PO DAILY PRN PRN Reason: PAIN LEVEL 6-10 Last Admin: 09/19/16 09:27 Dose: 650 mg Al Hydroxide/Mg Hydroxide (Mylanta Oral Suspension -) 10 ml PO BID [facility] Last Admin: 09/19/16 09:25 Dose: 10 ml Albuterol Sulfate (Ventolin 0.083% Nebulizer Soln -) 1 amp NEB Q6HPO [facility] Last Admin: 09/18/16 17:50 Dose: 1 amp Aspirin (Ecotrin -) 81 mg PO DAILY [facility] Last Admin: 09/19/16 09:28 Dose: 81 mg Atorvastatin Calcium (Lipitor -) 20 mg PO HS [facility] Last Admin: 09/18/16 23:15 Dose: 20 mg Calcium Acetate (Phoslo -) 667 mg PO TIDCM [facility] Last Admin: 09/19/16 08:26 Dose: 667 mg Cyanocobalamin (Vitamin B12 -) 1,000 mcg PO DAILY [facility] Last Admin: 09/19/16 09:28 Dose: 1,000 mcg Docusate Sodium (Colace -) 200 mg PO DAILY [facility] Last Admin: 09/19/16 09:28 Dose: 200 mg Epoetin Dawood (Procrit -) 10,000 unit SQ Rice@10 JES[facility]S Fluticasone Propionate (Flonase -) 1 spray NS DAILY [facility] Last Admin: 09/19/16 09:31 Dose: 1 puff Folic Acid (Folic Acid -) 1 mg PO DAILY [facility] Last Admin: 09/19/16 09:28 Dose: 1 mg Gabapentin (Neurontin -) 300 mg PO QID [facility] Last Admin: 09/19/16 09:28 Dose: 300 mg Heparin Sodium (Porcine) (Heparin -) 5,000 unit SQ BID [facility] Last Admin: 09/19/16 09:28 Dose: 5,000 unit Piperacillin Sod/Tazobactam Sod (Zosyn 3.375gm Ivpb (Pre-Docked)) 50 mls @ 100 mls/hr IVPB Q8H-IV [facility]S PRN Reason: Protocol Last Admin: 09/19/16 09:25 Dose: 100 mls/hr Sodium Chloride (Normal Saline -) 1,000 mls @ 84 mls/hr IV ASDIR [facility] Stop: 09/19/16 23:06 Last Admin: 09/18/16 14:11 Dose: 84 mls/hr Insulin Aspart (Novolog Vial Sliding Scale -) 1 vial SQ [facility] PRN Reason: Protocol Last Admin: 09/19/16 06:50 Dose: Not Given Insulin Detemir (Levemir Vial) 10 units SQ BK [facility] Last Admin: 09/19/16 06:50 Dose: 10 units Levothyroxine Sodium (Synthroid -) 50 mcg PO ACBK [facility] Last Admin: 09/19/16 06:51 Dose: 50 mcg Loratadine (Claritin -) 10 mg PO DAILY [facility] Last Admin: 09/19/16 09:27 Dose: 10 mg Metoclopramide HCl (Reglan -) 5 mg PO [facility] Last Admin: 09/19/16 06:51 Dose: 5 mg Metoprolol Succinate (Toprol Xl -) 25 mg PO DAILY [facility] Last Admin: 09/19/16 09:28 Dose: 25 mg Mupirocin (Bactroban 2% Cream -) 1 applic TP BID [facility] Last Admin: 09/19/16 09:32 Dose: 1 applic Nystatin (Mycostatin Cream -) 3 applic TP DAILY [facility] Last Admin: 09/19/16 09:32 Dose: 3 applic Oxycodone HCl (Roxicodone -) 5 mg PO Q6H PRN PRN Reason: PAIN Last Admin: 09/19/16 09:27 Dose: 5 mg Polyethylene Glycol (Miralax (For Daily Use) -) 17 gm PO BID [facility] Last Admin: 09/19/16 09:32 Dose: 17 gm Senna (Senna -) 2 tab PO HS [facility] Last Admin: 09/18/16 23:14 Dose: 2 tab Simethicone (Mylicon -) 80 mg PO QID [facility] Last Admin: 09/19/16 09:28 Dose: 80 mg - Objective Vital Signs: Vital Signs Temperature 99.9 F H 09/19/16 08:02 Pulse Rate 88 09/19/16 08:02 Respiratory Rate 18 09/19/16 08:12 Blood Pressure 112/54 09/19/16 08:02 O2 Sat by Pulse Oximetry (%) 100 09/19/16 06:00 Constitutional: Yes: No Distress, Obese Cardiovascular: Yes: Regular Rate and Rhythm, S1, S2 Respiratory: Yes: CTA Bilaterally Gastrointestinal: Yes: Normal Bowel Sounds, Soft, Abdomen, Obese. No: Tenderness Extremities: Yes: Other (+ lymphedema, R LE + erythema/ warmth, R thigh) Labs: CBC, BMP 09/19/16 05:35 09/19/16 05:35 INR, PTT INR 1.22 (0.82-1.09) H 09/16/16 10:53 Assessment/Plan UTI /Possible sepsis secondary to UTI- Morganella Fever/ leukocytosis Thrombocytopenia Azotemia Possible cellulitis R LE D/C zosyn Ceftriaxone 1gm IVPB q24h Redose vancomycin am
--- NOTE | 2016-09-19 11:58 | PN ---
Progress Note (short form) - Note Progress Note: CC: trop elevation S: no cp, palps, sob, dizziness Current Medications Generic Name Dose Route Start Last Admin Trade Name Freq PRN Reason Stop Dose Admin Acetaminophen 650 mg 09/16/16 19:39 09/19/16 09:27 Tylenol - PO 650 mg DAILY PRN Administration PAIN LEVEL 6-10 Al Hydroxide/Mg Hydroxide 10 ml 09/16/16 22:00 09/19/16 09:25 Mylanta Oral Suspension - PO 10 ml BID [facility] Administration Albuterol Sulfate 1 amp 09/16/16 19:15 09/18/16 17:50 Ventolin 0.083% Nebulizer Soln - NEB 1 amp Q6HPO [facility] Administration Aspirin 81 mg 09/17/16 10:00 09/19/16 09:28 Ecotrin - PO 81 mg DAILY [facility] Administration Atorvastatin Calcium 20 mg 09/16/16 22:00 09/18/16 23:15 Lipitor - PO 20 mg HS [facility]S Administration Calcium Acetate 667 mg 09/17/16 08:00 09/19/16 11:23 Phoslo - PO 667 mg TIDCM [facility] Administration Cyanocobalamin 1,000 mcg 09/17/16 10:00 09/19/16 09:28 Vitamin B12 - PO 1,000 mcg DAILY [facility] Administration Docusate Sodium 200 mg 09/17/16 10:00 09/19/16 09:28 Colace - PO 200 mg DAILY [facility] Administration Epoetin Dawood 10,000 unit 09/22/16 10:00 Procrit - SQ Rice@10 JES[facility]S Fluticasone Propionate 1 spray 09/17/16 10:00 09/19/16 09:31 Flonase - NS 1 puff DAILY [facility] Administration Folic Acid 1 mg 09/17/16 10:00 09/19/16 09:28 Folic Acid - PO 1 mg DAILY [facility] Administration Gabapentin 300 mg 09/16/16 22:00 09/19/16 09:28 Neurontin - PO 300 mg QID [facility] Administration Heparin Sodium (Porcine) 5,000 unit 09/16/16 22:00 09/19/16 09:28 Heparin - SQ 5,000 unit BID [facility] Administration Sodium Chloride 1,000 mls @ 84 mls/hr 09/18/16 13:38 09/18/16 14:11 Normal Saline - IV 09/19/16 23:06 84 mls/hr ASDIR [facility] Administration Ceftriaxone Sodium 50 mls @ 100 mls/hr 09/19/16 10:45 Rocephin 1gm Ivpb (Pre-Docked) IVPB DAILY [facility] Insulin Aspart 1 vial 09/16/16 22:00 09/19/16 11:25 Novolog Vial Sliding Scale - SQ Not Given ACHS [facility]S Protocol Insulin Detemir 10 units 09/17/16 10:18 09/19/16 06:50 Levemir Vial SQ 10 units ACBK [facility] Administration Levothyroxine Sodium 50 mcg 09/17/16 07:00 09/19/16 06:51 Synthroid - PO 50 mcg ACBK [facility] Administration Loratadine 10 mg 09/17/16 10:00 09/19/16 09:27 Claritin - PO 10 mg DAILY [facility] Administration Metoclopramide HCl 5 mg 09/16/16 22:00 09/19/16 11:23 Reglan - PO 5 mg ACHS [facility]ES[facility]S Administration Metoprolol Succinate 25 mg 09/18/16 11:59 09/19/16 09:28 Toprol Xl - PO 25 mg DAILY [facility] Administration Mupirocin 1 applic 09/16/16 22:00 09/19/16 09:32 Bactroban 2% Cream - TP 1 applic BID [facility] Administration Nystatin 3 applic 09/17/16 10:00 09/19/16 09:32 Mycostatin Cream - TP 3 applic DAILY [facility] Administration Oxycodone HCl 5 mg 09/16/16 19:11 09/19/16 09:27 Roxicodone - PO 5 mg Q6H PRN Administration PAIN Polyethylene Glycol 17 gm 09/16/16 22:00 09/19/16 09:32 Miralax (For Daily Use) - PO 17 gm BID [facility] Administration Senna 2 tab 09/16/16 22:00 09/18/16 23:14 Senna - PO 2 tab HS [facility] Administration Simethicone 80 mg 09/16/16 22:00 09/19/16 09:28 Mylicon - PO 80 mg QID [facility] Administration Vital Signs Period Temp Pulse Resp BP Sys/Hagan Pulse Ox Last 24 Hr 97.7 F-99.9 F 88-94 18-20 95-122/44-57 97-100 NAD, obese, jvd tds RRR nl s1, s2 2/6 murmur at sternal border and apex scattered rhonchi bl, poor effort + bs soft obese edematous nt +distension diminished distal pulses. s/p lt bka trace le edema erythema/venous stasis changes/skin excoriations and [place] changes of LE skin aaox3 no carotid bruit no jaundice diaphoresis 09/19/16 09/19/16 05:35 05:35 WBC 17.4 H RBC 2.98 L Hgb 8.7 L Hct 27.9 L MCV 93.5 MCHC 31.1 L RDW 16.3 H Plt Count 120 L Neutrophils % 92.3 H Lymphocytes % 2.4 L D Monocytes % 4.3 Eosinophils % 0.7 D Basophils % 0.3 Sodium 137 Potassium 5.0 Chloride 101 Carbon Dioxide 23 Anion Gap 13 BUN 95 H Creatinine 1.9 H 09/16/16 10:53 Blood Culture - Preliminary Blood - Peripheral Venous NO GROWTH OBTAINED AFTER 72 HOURS, INCUBATION TO CONTINUE FOR 2 DAYS. 09/16/16 10:53 Blood Culture - Preliminary Blood - Peripheral Venous NO GROWTH OBTAINED AFTER 72 HOURS, INCUBATION TO CONTINUE FOR 2 DAYS. 09/16/16 12:00 Urine Culture - Final Urine - Urine - Catheterized Morganella Morganii EKG here: stach, 105 bpm. poor r wave progression. non- specific tw changes, no sig change from prior tele: sr Echo 07/01/2016: Mild decr EF. paradoxical septal motion with mild HK of anteroseptum. RV not seen. 1+ mr/tr. mild (although MG only 12 mmHg). Echo 06/2015: mild-mod decr EF--global; nl RV; mild LAE; mild-mod MR/TR; RVSP 30- 40; small peric effusion; + pleural eff cxr: tds a/p: 71 yo with h/o HFpEF, CAD s/p [place], HTN, HL, pHTN, MIRIAM, o2 dep't copd, CKD, IDDM, hypothyroid and chronic LLE cellulitis/lt foot gangrene s/p L BKA, here with n/ v. intermediate troponin elevation/CAD -has previously refused stress tests. h/o prior NSTEMI x 2 (2012, 2014) in setting of demand (sepsis/anemia). Con't JUAN ANTONIO, but current elevation likely in setting of demand. -cath previously deferred due to: pt preference; hi risk of vascular complications (obese habitus), hi risk of BERNARDINO, and h/o recurrent anemia, possible occult GIB -currently without anginal sx's. EKG unchanged. Con't statin, BB, asa, imdur as bp tolerates -MATEO deferred previously due to labile creat's--no change; chronic foot wound, gangrene, now s/p bka 07/03/16: - per pmd/vascular chronic HFpEF/pulm HTN/venous ins'y/acute on chronic hypoxic and hypercapneic resp failure: - mild systolic dysfunction, presumed RV dysfunction. - pt currently on IVF with fever/infection. holding diuresis for now. Patient with chronic third spacing and total body volume overload, but intermittently with vascular depletion. - Abdomen tense and distended, abd u/s --> no ascites - strict I/O's. Bed weights if possible. PSVT: -likely brief run of ATach on prior tele, no recurrence -con't bb as bp tolerates VTach: -17 beat run of NSVT on prior tele (previous admit), no recurrence -K/Mag repletion prn -con't bb as bp tolerates CKD - cr above baseline, monitor with ivfs, holding diuretics MIRIAM - on bipap qhs. anemia: -chronic, baseline runs 8s-9s; -freq acute drops/PRBCs in past; currently above baseline. HTN: -controlled. monitor for hypotension in setting of infection - con't home bp meds, as bp tolerates. bp decreasing --> currently holding imdur.
[2016-09-19] MEDS: ALBUTEROL SO4 0.083% IH SOL 2.5 MG/3 ML VIAL.NEB. NEB SCH ×3 (12:25→23:40)
--- NOTE | 2016-09-19 12:49 | PN ---
Progress Note (short form) - Note Progress Note: Renal Follow up for CRISTELA on CKD Pt seen and examined at the bedside bradley catheter inserted yesterday has a near oliguric amount of urine output Vital Signs Temperature 99.9 F H 09/19/16 08:02 Pulse Rate 92 H 09/19/16 10:59 Respiratory Rate 18 09/19/16 08:12 Blood Pressure 112/54 09/19/16 08:02 O2 Sat by Pulse Oximetry (%) 97 09/19/16 10:59 Intake & Output 09/16/16 09/17/16 09/18/16 09/19/16 23:59 23:59 23:59 23:59 Intake Total 550 2070 1334 Output Total 120 200 Balance 550 1950 1134 Weight 279 lb 292 lb Gen: NAD, awake and alert HEENT: NC/AT, No JVD CVS: RRR, No M/R Lungs: Dec BS at the lung bases Abd: soft NT/ND Ext: 2+ lymphedema Neuro:AAOx3, no focal defects CBC, BMP 09/19/16 05:35 09/19/16 05:35 Laboratory Tests 09/19/16 05:35 Calcium 8.1 L Phosphorus 4.0 Magnesium 2.6 H Albumin 2.0 L Current Medications Acetaminophen (Tylenol -) 650 mg PO DAILY PRN PRN Reason: PAIN LEVEL 6-10 Last Admin: 09/19/16 09:27 Dose: 650 mg Al Hydroxide/Mg Hydroxide (Mylanta Oral Suspension -) 10 ml PO BID [facility] Last Admin: 09/19/16 09:25 Dose: 10 ml Albuterol Sulfate (Ventolin 0.083% Nebulizer Soln -) 1 amp NEB Q6HPO [facility] Last Admin: 09/19/16 12:25 Dose: 1 amp Aspirin (Ecotrin -) 81 mg PO DAILY [facility] Last Admin: 09/19/16 09:28 Dose: 81 mg Atorvastatin Calcium (Lipitor -) 20 mg PO HS [facility] Last Admin: 09/18/16 23:15 Dose: 20 mg Calcium Acetate (Phoslo -) 667 mg PO TIDCM [facility] Last Admin: 09/19/16 11:23 Dose: 667 mg Cyanocobalamin (Vitamin B12 -) 1,000 mcg PO DAILY [facility] Last Admin: 09/19/16 09:28 Dose: 1,000 mcg Docusate Sodium (Colace -) 200 mg PO DAILY [facility] Last Admin: 09/19/16 09:28 Dose: 200 mg Epoetin Dawood (Procrit -) 10,000 unit SQ Rice@10 JESÚS Fluticasone Propionate (Flonase -) 1 spray NS DAILY [facility] Last Admin: 09/19/16 09:31 Dose: 1 puff Folic Acid (Folic Acid -) 1 mg PO DAILY [facility] Last Admin: 09/19/16 09:28 Dose: 1 mg Gabapentin (Neurontin -) 300 mg PO QID [facility] Last Admin: 09/19/16 09:28 Dose: 300 mg Heparin Sodium (Porcine) (Heparin -) 5,000 unit SQ BID [facility] Last Admin: 09/19/16 09:28 Dose: 5,000 unit Sodium Chloride (Normal Saline -) 1,000 mls @ 84 mls/hr IV ASDIR [facility] Stop: 09/19/16 23:06 Last Admin: 09/18/16 14:11 Dose: 84 mls/hr Ceftriaxone Sodium (Rocephin 1gm Ivpb (Pre-Docked)) 50 mls @ 100 mls/hr IVPB DAILY [facility] Insulin Aspart (Novolog Vial Sliding Scale -) 1 vial SQ [facility] PRN Reason: Protocol Last Admin: 09/19/16 11:25 Dose: Not Given Insulin Detemir (Levemir Vial) 10 units SQ ACBK [facility] Last Admin: 09/19/16 06:50 Dose: 10 units Levothyroxine Sodium (Synthroid -) 50 mcg PO ACBK [facility] Last Admin: 09/19/16 06:51 Dose: 50 mcg Loratadine (Claritin -) 10 mg PO DAILY [facility] Last Admin: 09/19/16 09:27 Dose: 10 mg Metoclopramide HCl (Reglan -) 5 mg PO ACHS [facility] Last Admin: 09/19/16 11:23 Dose: 5 mg Metoprolol Succinate (Toprol Xl -) 25 mg PO DAILY [facility] Last Admin: 09/19/16 09:28 Dose: 25 mg Mupirocin (Bactroban 2% Cream -) 1 applic TP BID [facility] Last Admin: 09/19/16 09:32 Dose: 1 applic Nystatin (Mycostatin Cream -) 3 applic TP DAILY [facility] Last Admin: 09/19/16 09:32 Dose: 3 applic Oxycodone HCl (Roxicodone -) 5 mg PO Q6H PRN PRN Reason: PAIN Last Admin: 09/19/16 09:27 Dose: 5 mg Polyethylene Glycol (Miralax (For Daily Use) -) 17 gm PO BID [facility] Last Admin: 09/19/16 09:32 Dose: 17 gm Senna (Senna -) 2 tab PO HS [facility] Last Admin: 09/18/16 23:14 Dose: 2 tab Simethicone (Mylicon -) 80 mg PO QID [facility] Last Admin: 09/19/16 09:28 Dose: 80 mg A/P 71 year old woman with PMhx of CKD stage 3 w/o significant proteinuria, CHF, COPD, PVD, Chronic LE lymphedema, IDDM, CAD who presented wit fever with BUN/Cr of 85/1.5 and K of 5..5. #CRISTELA on CKD CR stable today but pt without good urine output BP remains marginal and given susepcted infection i believe it is warrented to contineu IVF hydration Trend BUN/Cr Keep MAP > 65 No MATEO/ARB, Contrast or NSAIDs #Hyperkalemia from intravascular volume depletion/renal insufficiency improved today Low K diet started #Fever continue Abx as per ID dose vanco by levels #Normocytic Anemia Check iron studies, stool occult blood continue Epogen 3x weekly no indication for transfusion Thank you Lambert Mcnamara DO
--- NOTE | 2016-09-19 13:43 | PN ---
Progress Note, Physician Chief Complaint: in bed more awake and alert less pain low grade fever WBC 17K oliguric, has Graf; renal and pelvic US noted no hydro or retention - Current Medication List Current Medications: Active Medications Acetaminophen (Tylenol -) 650 mg PO DAILY PRN PRN Reason: PAIN LEVEL 6-10 Last Admin: 09/19/16 09:27 Dose: 650 mg Al Hydroxide/Mg Hydroxide (Mylanta Oral Suspension -) 10 ml PO BID [facility] Last Admin: 09/19/16 09:25 Dose: 10 ml Albuterol Sulfate (Ventolin 0.083% Nebulizer Soln -) 1 amp NEB Q6HPO [facility] Last Admin: 09/19/16 12:25 Dose: 1 amp Aspirin (Ecotrin -) 81 mg PO DAILY [facility] Last Admin: 09/19/16 09:28 Dose: 81 mg Atorvastatin Calcium (Lipitor -) 20 mg PO HS [facility] Last Admin: 09/18/16 23:15 Dose: 20 mg Calcium Acetate (Phoslo -) 667 mg PO TIDCM [facility] Last Admin: 09/19/16 11:23 Dose: 667 mg Cyanocobalamin (Vitamin B12 -) 1,000 mcg PO DAILY [facility] Last Admin: 09/19/16 09:28 Dose: 1,000 mcg Docusate Sodium (Colace -) 200 mg PO DAILY [facility] Last Admin: 09/19/16 09:28 Dose: 200 mg Epoetin Dawood (Procrit -) 10,000 unit SQ Rice@10 J[facility] Fluticasone Propionate (Flonase -) 1 spray NS DAILY [facility] Last Admin: 09/19/16 09:31 Dose: 1 puff Folic Acid (Folic Acid -) 1 mg PO DAILY [facility] Last Admin: 09/19/16 09:28 Dose: 1 mg Gabapentin (Neurontin -) 300 mg PO QID [facility] Last Admin: 09/19/16 09:28 Dose: 300 mg Heparin Sodium (Porcine) (Heparin -) 5,000 unit SQ BID [facility] Last Admin: 09/19/16 09:28 Dose: 5,000 unit Sodium Chloride (Normal Saline -) 1,000 mls @ 84 mls/hr IV ASDIR [facility] Stop: 09/19/16 23:06 Last Admin: 09/18/16 14:11 Dose: 84 mls/hr Ceftriaxone Sodium (Rocephin 1gm Ivpb (Pre-Docked)) 50 mls @ 100 mls/hr IVPB DAILY [facility] Insulin Aspart (Novolog Vial Sliding Scale -) 1 vial SQ [facility] PRN Reason: Protocol Last Admin: 09/19/16 11:25 Dose: Not Given Insulin Detemir (Levemir Vial) 10 units SQ ACBK [facility] Last Admin: 09/19/16 06:50 Dose: 10 units Levothyroxine Sodium (Synthroid -) 50 mcg PO ACBK [facility] Last Admin: 09/19/16 06:51 Dose: 50 mcg Loratadine (Claritin -) 10 mg PO DAILY [facility] Last Admin: 09/19/16 09:27 Dose: 10 mg Metoclopramide HCl (Reglan -) 5 mg PO ACHS [facility] Last Admin: 09/19/16 11:23 Dose: 5 mg Metoprolol Succinate (Toprol Xl -) 25 mg PO DAILY [facility] Last Admin: 09/19/16 09:28 Dose: 25 mg Mupirocin (Bactroban 2% Cream -) 1 applic TP BID [facility] Last Admin: 09/19/16 09:32 Dose: 1 applic Nystatin (Mycostatin Cream -) 3 applic TP DAILY [facility] Last Admin: 09/19/16 09:32 Dose: 3 applic Oxycodone HCl (Roxicodone -) 5 mg PO Q6H PRN PRN Reason: PAIN Last Admin: 09/19/16 09:27 Dose: 5 mg Polyethylene Glycol (Miralax (For Daily Use) -) 17 gm PO BID [facility] Last Admin: 09/19/16 09:32 Dose: 17 gm Senna (Senna -) 2 tab PO HS [facility] Last Admin: 09/18/16 23:14 Dose: 2 tab Simethicone (Mylicon -) 80 mg PO QID [facility] Last Admin: 09/19/16 09:28 Dose: 80 mg - Objective Vital Signs: Vital Signs Temperature 99.9 F H 09/19/16 08:02 Pulse Rate 92 H 09/19/16 10:59 Respiratory Rate 18 09/19/16 08:12 Blood Pressure 112/54 09/19/16 08:02 O2 Sat by Pulse Oximetry (%) 97 09/19/16 10:59 Constitutional: Yes: No Distress, Calm Eyes: Yes: Conjunctiva Clear HENT: Yes: Atraumatic Neck: Yes: Supple Cardiovascular: Yes: Regular Rate and Rhythm Respiratory: Yes: Diminished Gastrointestinal: Yes: Soft, Abdomen, Obese. No: Distention, Tenderness Genitourinary: Yes: Graf Present, Oliguria Musculoskeletal: No: Joint Stiffness, Joint Swelling Extremities: Yes: Cold (R foot), Cool (R foot). No: Cyanosis Edema: Yes (RLE) Integumentary: Yes: Rash (RLE, R axilla, around neck - fading) Neurological: Yes: Alert, Oriented ...Motor Strength: WNL (functional quadriplegia) Psychiatric: Yes: Alert, Oriented. No: Agitated, Suicidal Ideation Labs: CBC, BMP 09/19/16 05:35 09/19/16 05:35 INR, PTT INR 1.22 (0.82-1.09) H 09/16/16 10:53 - ....Imaging Other: Report Reviewed Assessment/Plan The patient is a 71 year old female brought via EMS from [facility], with a significant past medical history of Hypothyroidism, Diabetes, HTN, CHF, [place] x2, (on home O2, 2L), left BKA, anemia, essential tremors, CAD, GERD, CKD and obesity, admitted with UTI, RLE cellulitis, neck and R axilla rash looks like fungic; sepsis, low BP/ r/o septic shock; R foot cold r/o ischemia - surgery f/u ARF oliguric - renal consult f/u; renal US noted IVF gentle hydration (h/o CHF fluid overload) broad spectrum ATB topical nystatin hold BP meds negative blood cx, UCx Morganella; ID, cardiology f/u f/u labs DVT falls decubs and aspiration PFX HOB BGM, DM control; prognosis guarded d/w pt and staff
[2016-09-19] MEDS: SODIUM CHLORIDE 1,000 ML IV SCH (14:09)
[2016-09-19] MEDS: CEFTRIAXONE 50 ML IVPB SCH (14:09)
[2016-09-19] MEDS ORDERED: INSULIN (NOVOLOG) ASPART 100 UNITS/ML 10ML VIAL ONE (16:47)
--- NOTE | 2016-09-19 17:25 | PN ---
Progress Note (short form) - Note Progress Note: VAscular Surgery Pt seen and examined. Right foot looks ok. Better than yesterday No mottling. Pt still septc -- WBC 17 today. Will follow right foot. Gaurav massey DO
[2016-09-19] MEDS: ATORVASTATIN CA 20 MG TABLET (FP) PO SCH (22:37)
[2016-09-19] MEDS: SENNOSIDES 8.6MG TABLET (FP) PO SCH (22:40)
[2016-09-20] MEDS: INSULIN SLIDING SCALE (NOVOLOG) 1 VIAL SQ SCH ×4 (06:04→22:00)
[2016-09-20] MEDS: LEVOTHYROXINE NA 50 MCG TABLET (FP) PO SCH (06:12)
[2016-09-20] MEDS: ACETAMINOPHEN 325 MG TABLET (FP) PO PRN (06:13)
[2016-09-20] MEDS: METOCLOPRAMIDE HCL 10 MG TABLET (FP) PO SCH ×4 (06:13→21:59)
[2016-09-20] MEDS: INSULIN DETEMIR 100 UNITS/ML MDV SQ SCH (06:14)
[2016-09-20] MEDS: ALBUTEROL SO4 0.083% IH SOL 2.5 MG/3 ML VIAL.NEB. NEB SCH ×4 (06:35→23:40)
[2016-09-20 07:24] LABS: MCH 29.2 pg (25.7-33.7); MEAN CELL VOLUME 94.1 fl (80-96); MEAN PLT VOLUME 9.5 fl (7.5-11.1); PLATELET COUNT 118 K/MM3 (134-434); RDW 16.2 % (11.6-15.6); WHITE BLOOD COUNT 19.8 K/mm3 (4.0-10.0)
[2016-09-20] MEDS: CALCIUM ACETATE 667 MG CAPSULE (FP) PO SCH ×3 (08:30→17:18)
[2016-09-20 08:44] LABS: ALBUMIN 2.1 g/dl (3.4-5.0); BILIRUBIN,TOTAL 0.6 mg/dL (0.2-1.0); CALCIUM 8.2 mg/dL (8.5-10.1); COCKROFT - GAULT 50.626; CREATININE 2.1 mg/dL (0.55-1.02); MAGNESIUM 2.5 mg/dL (1.8-2.4); PHOSPHOROUS 4.3 mg/dL (2.5-4.9); TOT PROT 6.1 g/dl (6.4-8.2)
[2016-09-20] MEDS: MUPIROCIN CA 2% TOPICAL CREAM 15 GM TUBE TP SCH ×2 (09:54→22:04)
[2016-09-20] MEDS: FLUTICASONE PROP 0.05% 16 GM NASAL SPRAY NS SCH (09:54)
[2016-09-20] MEDS: NYSTATIN 100,000 UNIT/GM TOPICAL CREAM 15 GM TUBE TP SCH (09:54)
[2016-09-20] MEDS: CEFTRIAXONE 50 ML IVPB SCH (09:55)
[2016-09-20] MEDS: GABAPENTIN 300 MG CAPSULE (FP) PO SCH ×4 (09:56→22:00)
[2016-09-20] MEDS: METOPROLOL SUCCINATE 25 MG TAB.SR.24H (FP) PO SCH (09:56)
[2016-09-20] MEDS: FOLIC ACID 1 MG TABLET (FP) PO SCH (09:56)
[2016-09-20] MEDS: ASPIRIN COATED 81 MG TABLET.EC PO SCH (09:56)
[2016-09-20] MEDS: DOCUSATE SODIUM 100 MG CAPSULE (FP) PO SCH (09:56)
[2016-09-20] MEDS: MAG HYDROX/AL HYDROX/SIMETH 30 ML UNIT-DOSE CUP PO SCH (09:56)
[2016-09-20] MEDS: LORATADINE 10 MG TABLET PO SCH (09:57)
[2016-09-20] MEDS: CYANOCOBALAMIN 1,000 MCG TABLET (FP) PO SCH (09:57)
--- NOTE | 2016-09-20 10:25 | PN ---
Progress Note, Physician Chief Complaint: in bed awake alert creat 2.1 RLE pain; no CP/SOB - Current Medication List Current Medications: Active Medications Acetaminophen (Tylenol -) 650 mg PO DAILY PRN PRN Reason: PAIN LEVEL 6-10 Last Admin: 09/20/16 06:13 Dose: 650 mg Al Hydroxide/Mg Hydroxide (Mylanta Oral Suspension -) 10 ml PO BID [facility] Last Admin: 09/20/16 09:56 Dose: 10 ml Albuterol Sulfate (Ventolin 0.083% Nebulizer Soln -) 1 amp NEB Q6HPO [facility] Last Admin: 09/20/16 06:35 Dose: 1 amp Aspirin (Ecotrin -) 81 mg PO DAILY [facility] Last Admin: 09/20/16 09:56 Dose: 81 mg Atorvastatin Calcium (Lipitor -) 20 mg PO HS [facility] Last Admin: 09/19/16 22:37 Dose: 20 mg Calcium Acetate (Phoslo -) 667 mg PO TIDCM [facility] Last Admin: 09/20/16 08:30 Dose: 667 mg Cyanocobalamin (Vitamin B12 -) 1,000 mcg PO DAILY [facility] Last Admin: 09/20/16 09:57 Dose: 1,000 mcg Docusate Sodium (Colace -) 200 mg PO DAILY [facility] Last Admin: 09/20/16 09:56 Dose: 200 mg Epoetin Dawood (Procrit -) 10,000 unit SQ Rice@10 [facility] Fluticasone Propionate (Flonase -) 1 spray NS DAILY [facility] Last Admin: 09/20/16 09:54 Dose: 1 puff Folic Acid (Folic Acid -) 1 mg PO DAILY [facility] Last Admin: 09/20/16 09:56 Dose: 1 mg Gabapentin (Neurontin -) 300 mg PO QID [facility] Last Admin: 09/20/16 09:56 Dose: 300 mg Heparin Sodium (Porcine) (Heparin -) 5,000 unit SQ BID [facility] Last Admin: 09/19/16 22:36 Dose: 5,000 unit Ceftriaxone Sodium (Rocephin 1gm Ivpb (Pre-Docked)) 50 mls @ 100 mls/hr IVPB DAILY [facility] Last Admin: 09/20/16 09:55 Dose: 100 mls/hr Insulin Aspart (Novolog Vial Sliding Scale -) 1 vial SQ ACHS [facility] PRN Reason: Protocol Last Admin: 09/20/16 06:04 Dose: Not Given Insulin Detemir (Levemir Vial) 10 units SQ ACBK [facility] Last Admin: 09/20/16 06:14 Dose: 10 units Levothyroxine Sodium (Synthroid -) 50 mcg PO ACBK [facility] Last Admin: 09/20/16 06:12 Dose: 50 mcg Loratadine (Claritin -) 10 mg PO DAILY [facility] Last Admin: 09/20/16 09:57 Dose: 10 mg Metoclopramide HCl (Reglan -) 5 mg PO ACHS [facility] Last Admin: 09/20/16 06:13 Dose: 5 mg Metoprolol Succinate (Toprol Xl -) 25 mg PO DAILY [facility] Last Admin: 09/20/16 09:56 Dose: 25 mg Mupirocin (Bactroban 2% Cream -) 1 applic TP BID [facility] Last Admin: 09/20/16 09:54 Dose: 1 applic Nystatin (Mycostatin Cream -) 3 applic TP DAILY [facility] Last Admin: 09/20/16 09:54 Dose: 3 applic Oxycodone HCl (Roxicodone -) 5 mg PO Q6H PRN PRN Reason: PAIN Last Admin: 09/19/16 09:27 Dose: 5 mg Polyethylene Glycol (Miralax (For Daily Use) -) 17 gm PO BID [facility] Last Admin: 09/19/16 22:40 Dose: 17 gm Senna (Senna -) 2 tab PO HS [facility] Last Admin: 09/19/16 22:40 Dose: 2 tab Simethicone (Mylicon -) 80 mg PO QID [facility] Last Admin: 09/19/16 22:37 Dose: 80 mg - Objective Vital Signs: Vital Signs Temperature 97.4 F L 09/20/16 06:00 Pulse Rate 80 09/20/16 06:00 Respiratory Rate 19 09/20/16 06:00 Blood Pressure 116/53 09/20/16 06:00 O2 Sat by Pulse Oximetry (%) 97 09/20/16 06:00 Constitutional: Yes: No Distress, Calm Eyes: Yes: Conjunctiva Clear HENT: Yes: Atraumatic Neck: Yes: Supple Cardiovascular: Yes: Regular Rate and Rhythm Respiratory: Yes: Diminished Gastrointestinal: Yes: Soft, Abdomen, Obese. No: Distention, Palpable Mass, Tenderness Genitourinary: No: Hematuria Musculoskeletal: No: Joint Stiffness, Joint Swelling Extremities: Yes: Erythema (RLE) Edema: Yes (RLE) Integumentary: No: Venous Stasis Changes Neurological: Yes: WNL, Alert, Oriented ...Motor Strength: WNL Psychiatric: Yes: WNL, Alert, Oriented. No: Agitated, Suicidal Ideation Labs: CBC, BMP 09/20/16 05:35 09/20/16 06:00 INR, PTT INR 1.22 (0.82-1.09) H 09/16/16 10:53 - ....Imaging Other: Report Reviewed Assessment/Plan The patient is a 71 year old female brought via EMS from [facility], with a significant past medical history of Hypothyroidism, Diabetes, HTN, CHF, [place] x2, (on home O2, 2L), left BKA, anemia, essential tremors, CAD, GERD, CKD and obesity, admitted with UTI, RLE cellulitis, neck and R axilla rashfungic; sepsis, low BP/ r/o septic shock; R foot cold r/o ischemia - surgery f/u ARF oliguric - renal consult f/u; renal US noted IVF gentle hydration (h/o CHF fluid overload) broad spectrum ATB topical nystatin hold BP meds negative blood cx, UCx Morganella; ID, cardiology f/u f/u labs DVT falls decubs and aspiration PFX HOB BGM, DM control; prognosis guarded d/w pt and staff
[2016-09-20] MEDS: POLYETHYLENE GLYCOL 3350 119 GM BTL PO SCH ×2 (11:13→22:00)
[2016-09-20] MEDS: SIMETHICONE 80 MG TAB.CHEW (FP) PO SCH ×4 (11:13→21:59)
[2016-09-20] MEDS: HEPARIN NA (PORCINE) 5,000 UNITS/ML 1ML VIAL SQ SCH ×2 (11:14→21:59)
--- NOTE | 2016-09-20 11:23 | PN ---
Progress Note (short form) - Note Progress Note: CC: trop elevation S: no cp, palps, sob, dizziness Current Medications Generic Name Dose Route Start Last Admin Trade Name Freq PRN Reason Stop Dose Admin Acetaminophen 650 mg 09/16/16 19:39 09/20/16 06:13 Tylenol - PO 650 mg DAILY PRN Administration PAIN LEVEL 6-10 Al Hydroxide/Mg Hydroxide 10 ml 09/16/16 22:00 09/20/16 09:56 Mylanta Oral Suspension - PO 10 ml BID [facility] Administration Albuterol Sulfate 1 amp 09/16/16 19:15 09/20/16 06:35 Ventolin 0.083% Nebulizer Soln - NEB 1 amp Q6HPO [facility] Administration Aspirin 81 mg 09/17/16 10:00 09/20/16 09:56 Ecotrin - PO 81 mg DAILY [facility] Administration Atorvastatin Calcium 20 mg 09/16/16 22:00 09/19/16 22:37 Lipitor - PO 20 mg HS [facility] Administration Calcium Acetate 667 mg 09/17/16 08:00 09/20/16 11:13 Phoslo - PO 667 mg TIDCM [facility] Administration Cyanocobalamin 1,000 mcg 09/17/16 10:00 09/20/16 09:57 Vitamin B12 - PO 1,000 mcg DAILY [facility] Administration Docusate Sodium 200 mg 09/17/16 10:00 09/20/16 09:56 Colace - PO 200 mg DAILY [facility] Administration Epoetin Dawood 10,000 unit 09/22/16 10:00 Procrit - SQ Rice@10 [facility] Fluticasone Propionate 1 spray 09/17/16 10:00 09/20/16 09:54 Flonase - NS 1 puff DAILY [facility] Administration Folic Acid 1 mg 09/17/16 10:00 09/20/16 09:56 Folic Acid - PO 1 mg DAILY [facility] Administration Gabapentin 300 mg 09/16/16 22:00 09/20/16 09:56 Neurontin - PO 300 mg QID [facility] Administration Heparin Sodium (Porcine) 5,000 unit 09/16/16 22:00 09/20/16 11:14 Heparin - SQ 5,000 unit BID [facility] Administration Ceftriaxone Sodium 50 mls @ 100 mls/hr 09/19/16 10:45 09/20/16 09:55 Rocephin 1gm Ivpb (Pre-Docked) IVPB 100 mls/hr DAILY [facility] Administration Insulin Aspart 1 vial 09/16/16 22:00 09/20/16 11:12 Novolog Vial Sliding Scale - SQ Not Given ACHS [facility] Protocol Insulin Detemir 10 units 09/17/16 10:18 09/20/16 06:14 Levemir Vial SQ 10 units ACBK [facility] Administration Levothyroxine Sodium 50 mcg 09/17/16 07:00 09/20/16 06:12 Synthroid - PO 50 mcg ACBK [facility] Administration Loratadine 10 mg 09/17/16 10:00 09/20/16 09:57 Claritin - PO 10 mg DAILY [facility] Administration Metoclopramide HCl 5 mg 09/16/16 22:00 09/20/16 11:13 Reglan - PO 5 mg ACHS [facility] Administration Metoprolol Succinate 25 mg 09/18/16 11:59 09/20/16 09:56 Toprol Xl - PO 25 mg DAILY [facility] Administration Mupirocin 1 applic 09/16/16 22:00 09/20/16 09:54 Bactroban 2% Cream - TP 1 applic BID [facility] Administration Nystatin 3 applic 09/17/16 10:00 09/20/16 09:54 Mycostatin Cream - TP 3 applic DAILY [facility] Administration Oxycodone HCl 5 mg 09/16/16 19:11 09/19/16 09:27 Roxicodone - PO 5 mg Q6H PRN Administration PAIN Polyethylene Glycol 17 gm 09/16/16 22:00 09/20/16 11:13 Miralax (For Daily Use) - PO 17 gm BID [facility] Administration Senna 2 tab 09/16/16 22:00 09/19/16 22:40 Senna - PO 2 tab HS [facility] Administration Simethicone 80 mg 09/16/16 22:00 09/20/16 11:13 Mylicon - PO 80 mg QID [facility] Administration Vital Signs Period Temp Pulse Resp BP Sys/Hagan Pulse Ox Last 24 Hr 97.2 F-98.6 F 80-93 18-22 95-129/42-57 95-97 NAD, obese, jvd tds RRR nl s1, s2 2/6 murmur at sternal border and apex scattered rhonchi bl, poor effort + bs soft obese edematous nt +distension diminished distal pulses. s/p lt bka trace le edema erythema/venous stasis changes/skin excoriations and [place] changes of LE skin aaox3 no carotid bruit no jaundice diaphoresis Laboratory Last Values WBC 19.8 K/mm3 (4.0-10.0) H 09/20/16 05:35 RBC 3.18 M/mm3 (3.60-5.2) L 09/20/16 05:35 Hgb 9.3 GM/dL (10.7-15.3) L 09/20/16 05:35 Hct 29.9 % (32.4-45.2) L 09/20/16 05:35 MCV 94.1 fl (80-96) 09/20/16 05:35 MCHC 31.0 g/dl (32.0-36.0) L 09/20/16 05:35 RDW 16.2 % (11.6-15.6) H 09/20/16 05:35 Plt Count 118 K/MM3 (134-434) L 09/20/16 05:35 MPV 9.5 fl (7.5-11.1) 09/20/16 05:35 Neutrophils % Y 09/20/16 05:35 Lymphocytes % Y 09/20/16 05:35 Monocytes % 4.3 % (3.8-10.2) 09/19/16 05:35 Eosinophils % 0.7 % (0-4.5) D 09/19/16 05:35 Basophils % 0.3 % (0-2.0) 09/19/16 05:35 INR 1.22 (0.82-1.09) H 09/16/16 10:53 PTT (Actin FS) 30.4 SECONDS (26.9-34.4) 09/16/16 10:53 VBG pH 7.36 (7.32-7.42) 09/16/16 10:53 POC VBG pCO2 45.7 mmHg (38-52) D 09/16/16 10:53 POC VBG pO2 54.8 mmHg (28-48) H D 09/16/16 10:53 Mixed VBG HCO3 25.4 meq/L (19-25) H 09/16/16 10:53 Sodium 136 mmol/L (136-145) 09/20/16 06:00 Potassium 5.0 mmol/L (3.5-5.1) 09/20/16 06:00 Chloride 101 mmol/L (98-107) 09/20/16 06:00 Carbon Dioxide 23 mmol/L (21-32) 09/20/16 06:00 Anion Gap 12 (8-16) 09/20/16 06:00 BUN 102 mg/dL (7-18) H 09/20/16 06:00 Creatinine 2.1 mg/dL (0.55-1.02) H 09/20/16 06:00 Creat Clearance w eGFR 23.15 (>60) 09/20/16 06:00 POC Glucometer 113 UNITS (()) 09/20/16 05:41 Random Glucose 107 mg/dL (74-106) H 09/20/16 06:00 Lactic Acid 1.339 mmol/L (0.4-2.0) 09/16/16 10:53 Calcium 8.2 mg/dL (8.5-10.1) L 09/20/16 06:00 Phosphorus 4.3 mg/dL (2.5-4.9) 09/20/16 06:00 Magnesium 2.5 mg/dL (1.8-2.4) H 09/20/16 06:00 Total Bilirubin 0.6 mg/dL (0.2-1.0) D 09/20/16 06:00 AST 53 U/L (15-37) H D 09/20/16 06:00 ALT 37 U/L (12-78) D 09/20/16 06:00 Alkaline Phosphatase 163 U/L (45-117) H D 09/20/16 06:00 Creatine Kinase 63 IU/L (26-192) 09/16/16 10:53 Troponin I 0.22 ng/ml (0.00-0.05) H 09/16/16 10:53 Total Protein 6.1 g/dl (6.4-8.2) L 09/20/16 06:00 Albumin 2.1 g/dl (3.4-5.0) L 09/20/16 06:00 Urine Color Ltyellow 09/16/16 12:00 Urine Appearance Slcloudy 09/16/16 12:00 Urine pH 6.0 (5.0-8.0) 09/16/16 12:00 Ur Specific [place] <= 1.005 (1.005-1.025) 09/16/16 12:00 Urine Protein 2+ (NEGATIVE) H 09/16/16 12:00 Urine Glucose (UA) Negative (NEGATIVE) 09/16/16 12:00 Urine Ketones Negative (NEGATIVE) 09/16/16 12:00 Urine Blood 1+ (NEGATIVE) H 09/16/16 12:00 Urine Nitrite Negative (NEGATIVE) 09/16/16 12:00 Urine Bilirubin Negative (NEGATIVE) 09/16/16 12:00 Urine Urobilinogen Negative E.U./dl (0.2-1.0) 09/16/16 12:00 Ur Leukocyte Esterase 3+ (NEGATIVE) H 09/16/16 12:00 Urine RBC 3 /hpf (0-3) 09/16/16 12:00 Urine WBC 75 /hpf (3-5) 09/16/16 12:00 Ur Epithelial Cells Rare /hpf (FEW) 09/16/16 12:00 Urine Bacteria Rare /hpf (NONE SEEN) 09/16/16 12:00 Urine Yeast Few 09/16/16 12:00 Ur Random Sodium 17 MMOL/L 09/18/16 18:30 Ur Random Potassium 66.4 MMOL/L 09/18/16 18:30 Ur Random Chloride 20 MMOL/L 09/18/16 18:30 Random Vancomycin 15.278 ug/ml 09/20/16 06:00 Blood Type O POSITIVE 09/16/16 10:53 Antibody Screen Positive H 09/16/16 10:53 Prewarmed Antibody Srcn Negative 09/16/16 10:53 Antibody Identification No Result Required. 09/16/16 10:53 Antigen Identification Y 09/16/16 10:53 Direct Antiglob Test Positive (NEGATIVE) H 09/16/16 10:53 EKG here: stach, 105 bpm. poor r wave progression. non- specific tw changes, no sig change from prior tele: sr Echo 07/01/2016: Mild decr EF. paradoxical septal motion with mild HK of anteroseptum. RV not seen. 1+ mr/tr. mild (although MG only 12 mmHg). Echo 06/2015: mild-mod decr EF--global; nl RV; mild LAE; mild-mod MR/TR; RVSP 30- 40; small peric effusion; + pleural eff cxr: tds a/p: 71 yo with h/o HFpEF, CAD s/p NC, HTN, HL, pHTN, MIRIAM, o2 dep't copd, CKD, IDDM, hypothyroid and chronic LLE cellulitis/lt foot gangrene s/p L BKA, here with n/ v. intermediate troponin elevation/CAD -has previously refused stress tests. h/o prior NSTEMI x 2 (2012, 2014) in setting of demand (sepsis/anemia). Con't JUAN ANTONIO, but current elevation likely in setting of demand. -cath previously deferred due to: pt preference; hi risk of vascular complications (obese habitus), hi risk of BERNARDINO, and h/o recurrent anemia, possible occult GIB -currently without anginal sx's. EKG unchanged. Con't statin, BB, asa, imdur as bp tolerates -MATEO deferred previously due to labile creat's--no change; chronic foot wound, gangrene, now s/p bka 07/03/16: - per pmd/vascular chronic HFpEF/pulm HTN/venous ins'y/acute on chronic hypoxic and hypercapneic resp failure: - mild systolic dysfunction, presumed RV dysfunction. - pt currently on IVF with fever/infection. holding diuresis for now. Patient with chronic third spacing and total body volume overload, but intermittently with vascular depletion. - Abdomen tense and distended, abd u/s --> no ascites PSVT: -likely brief run of ATach on prior tele, no recurrence -con't bb as bp tolerates VTach: -17 beat run of NSVT on prior tele (previous admit), no recurrence -K/Mag repletion prn -con't bb as bp tolerates CKD - cr above baseline, monitor with ivfs, holding diuretics - renal following MIRIAM - on bipap qhs. anemia: -chronic, baseline runs 8s-9s; -freq acute drops/PRBCs in past; currently above baseline. HTN: -controlled. monitor for hypotension in setting of infection - con't home bp meds, as bp tolerates. bp decreasing --> currently holding imdur.
--- NOTE | 2016-09-20 11:53 | PN ---
Progress Note, Physician Chief Complaint: The patient seen in her bed. Lethargic, but arousable. Denies any chest pains/ or Shortness of breath. Afebrile today. Put out about 500 ml of urine past 24 hours. IV fluids well tolerated. - Current Medication List Current Medications: Active Medications Acetaminophen (Tylenol -) 650 mg PO DAILY PRN PRN Reason: PAIN LEVEL 6-10 Last Admin: 09/20/16 06:13 Dose: 650 mg Albuterol Sulfate (Ventolin 0.083% Nebulizer Soln -) 1 amp NEB Q6HPO [facility] Last Admin: 09/20/16 06:35 Dose: 1 amp Aspirin (Ecotrin -) 81 mg PO DAILY [facility] Last Admin: 09/20/16 09:56 Dose: 81 mg Atorvastatin Calcium (Lipitor -) 20 mg PO HS [facility] Last Admin: 09/19/16 22:37 Dose: 20 mg Calcium Acetate (Phoslo -) 667 mg PO TIDCM [facility] Last Admin: 09/20/16 11:13 Dose: 667 mg Cyanocobalamin (Vitamin B12 -) 1,000 mcg PO DAILY [facility] Last Admin: 09/20/16 09:57 Dose: 1,000 mcg Docusate Sodium (Colace -) 200 mg PO DAILY [facility] Last Admin: 09/20/16 09:56 Dose: 200 mg Epoetin Dawood (Procrit -) 10,000 unit SQ Rice@10 [facility] Fluticasone Propionate (Flonase -) 1 spray NS DAILY [facility] Last Admin: 09/20/16 09:54 Dose: 1 puff Folic Acid (Folic Acid -) 1 mg PO DAILY [facility] Last Admin: 09/20/16 09:56 Dose: 1 mg Gabapentin (Neurontin -) 300 mg PO QID [facility] Last Admin: 09/20/16 09:56 Dose: 300 mg Heparin Sodium (Porcine) (Heparin -) 5,000 unit SQ BID [facility] Last Admin: 09/20/16 11:14 Dose: 5,000 unit Ceftriaxone Sodium (Rocephin 1gm Ivpb (Pre-Docked)) 50 mls @ 100 mls/hr IVPB DAILY [facility] Last Admin: 09/20/16 09:55 Dose: 100 mls/hr Insulin Aspart (Novolog Vial Sliding Scale -) 1 vial SQ ACHS [facility] PRN Reason: Protocol Last Admin: 09/20/16 11:12 Dose: Not Given Insulin Detemir (Levemir Vial) 10 units SQ ACBK [facility] Last Admin: 09/20/16 06:14 Dose: 10 units Levothyroxine Sodium (Synthroid -) 50 mcg PO ACBK [facility] Last Admin: 09/20/16 06:12 Dose: 50 mcg Loratadine (Claritin -) 10 mg PO DAILY [facility] Last Admin: 09/20/16 09:57 Dose: 10 mg Metoclopramide HCl (Reglan -) 5 mg PO ACHS [facility] Last Admin: 09/20/16 11:13 Dose: 5 mg Metoprolol Succinate (Toprol Xl -) 25 mg PO DAILY [facility] Last Admin: 09/20/16 09:56 Dose: 25 mg Mupirocin (Bactroban 2% Cream -) 1 applic TP BID [facility] Last Admin: 09/20/16 09:54 Dose: 1 applic Nystatin (Mycostatin Cream -) 3 applic TP DAILY [facility] Last Admin: 09/20/16 09:54 Dose: 3 applic Oxycodone HCl (Roxicodone -) 5 mg PO Q6H PRN PRN Reason: PAIN Last Admin: 09/19/16 09:27 Dose: 5 mg Polyethylene Glycol (Miralax (For Daily Use) -) 17 gm PO BID [facility] Last Admin: 09/20/16 11:13 Dose: 17 gm Senna (Senna -) 2 tab PO HS [facility] Last Admin: 09/19/16 22:40 Dose: 2 tab Simethicone (Mylicon -) 80 mg PO QID [facility] Last Admin: 09/20/16 11:13 Dose: 80 mg - Objective Vital Signs: Vital Signs Temperature 97.4 F L 09/20/16 06:00 Pulse Rate 80 09/20/16 06:00 Respiratory Rate 19 09/20/16 06:00 Blood Pressure 116/53 09/20/16 06:00 O2 Sat by Pulse Oximetry (%) 97 09/20/16 06:00 Constitutional: Yes: Well Nourished, Calm Neck: Yes: Supple Cardiovascular: Yes: S1, S2 Respiratory: Yes: Regular, Diminished, Poor Air Entry Gastrointestinal: Yes: Normal Bowel Sounds, Abdomen, Obese Extremities: Yes: Amputation (left AKA), Erythema Edema: Yes Edema: LLE: 3+ (lymphedema ), RLE: 3+ (Chronic lymphedema.) Neurological: Yes: Oriented Labs: CBC, BMP 09/20/16 05:35 09/20/16 06:00 INR, PTT INR 1.22 (0.82-1.09) H 09/16/16 10:53 Problem List - Problems (1) Acute on chronic renal failure Code(s): N17.9 - ACUTE KIDNEY FAILURE, UNSPECIFIED N18.9 - CHRONIC KIDNEY DISEASE, UNSPECIFIED (2) CO2 retention Code(s): E87.2 - ACIDOSIS (3) Diabetes Code(s): E11.9 - TYPE 2 DIABETES MELLITUS WITHOUT COMPLICATIONS Qualifiers: Diabetes mellitus complication detail: with diabetic retinopathy (4) Hypermagnesemia Code(s): E83.41 - HYPERMAGNESEMIA (5) Anemia Code(s): D64.9 - ANEMIA, UNSPECIFIED Qualifiers: Anemia type: unspecified type Qualified Code(s): D64.9 - Anemia, unspecified (6) Other fluid overload Code(s): E87.79 - OTHER FLUID OVERLOAD Assessment/Plan 71 y/o female with Chronic Kidney disease Stage 3, admitted with Fever, Cellulitis of the lower extremities. Her multiple medical co-morbid conditions include COPD, Congestive Heart failure , Peripheral arterial disease, S/p Left AKA, Chronic lymphedema, Coronary artery disease. The patient is receiving Rocephin and Vancomycin. Discussed with Dr. Paz. The last Vanco level is 15. Will hold the Vanco for now. If the renal functions are improving, then redosing in a few days may be possible. No emergent indication for dialysis at this point. Will closely monitor the renal functions. Apple Kang MD
[2016-09-20 12:03] LABS: PLATELET ESTIMATE DECREASED (NORMAL)
--- NOTE | 2016-09-20 12:16 | PN ---
Progress Note, Physician History of Present Illness: Awake, responsive No complaints Afebrile No diarrhea WBC increased, thrombocytopenic Azotemia - Current Medication List Current Medications: Active Medications Acetaminophen (Tylenol -) 650 mg PO DAILY PRN PRN Reason: PAIN LEVEL 6-10 Last Admin: 09/20/16 06:13 Dose: 650 mg Albuterol Sulfate (Ventolin 0.083% Nebulizer Soln -) 1 amp NEB Q6HPO [facility] Last Admin: 09/20/16 06:35 Dose: 1 amp Aspirin (Ecotrin -) 81 mg PO DAILY [facility] Last Admin: 09/20/16 09:56 Dose: 81 mg Atorvastatin Calcium (Lipitor -) 20 mg PO HS [facility] Last Admin: 09/19/16 22:37 Dose: 20 mg Calcium Acetate (Phoslo -) 667 mg PO TIDCM [facility] Last Admin: 09/20/16 11:13 Dose: 667 mg Cyanocobalamin (Vitamin B12 -) 1,000 mcg PO DAILY [facility] Last Admin: 09/20/16 09:57 Dose: 1,000 mcg Docusate Sodium (Colace -) 200 mg PO DAILY [facility] Last Admin: 09/20/16 09:56 Dose: 200 mg Epoetin Dawood (Procrit -) 10,000 unit SQ Rice@10 [facility] Fluticasone Propionate (Flonase -) 1 spray NS DAILY [facility] Last Admin: 09/20/16 09:54 Dose: 1 puff Folic Acid (Folic Acid -) 1 mg PO DAILY [facility] Last Admin: 09/20/16 09:56 Dose: 1 mg Gabapentin (Neurontin -) 300 mg PO QID [facility] Last Admin: 09/20/16 09:56 Dose: 300 mg Heparin Sodium (Porcine) (Heparin -) 5,000 unit SQ BID [facility] Last Admin: 09/20/16 11:14 Dose: 5,000 unit Ceftriaxone Sodium (Rocephin 1gm Ivpb (Pre-Docked)) 50 mls @ 100 mls/hr IVPB DAILY [facility] Last Admin: 09/20/16 09:55 Dose: 100 mls/hr Insulin Aspart (Novolog Vial Sliding Scale -) 1 vial SQ ACHS [facility] PRN Reason: Protocol Last Admin: 09/20/16 11:12 Dose: Not Given Insulin Detemir (Levemir Vial) 10 units SQ ACBK [facility] Last Admin: 09/20/16 06:14 Dose: 10 units Levothyroxine Sodium (Synthroid -) 50 mcg PO ACBK [facility] Last Admin: 09/20/16 06:12 Dose: 50 mcg Loratadine (Claritin -) 10 mg PO DAILY [facility] Last Admin: 09/20/16 09:57 Dose: 10 mg Metoclopramide HCl (Reglan -) 5 mg PO ACHS [facility] Last Admin: 09/20/16 11:13 Dose: 5 mg Metoprolol Succinate (Toprol Xl -) 25 mg PO DAILY [facility] Last Admin: 09/20/16 09:56 Dose: 25 mg Mupirocin (Bactroban 2% Cream -) 1 applic TP BID [facility] Last Admin: 09/20/16 09:54 Dose: 1 applic Nystatin (Mycostatin Cream -) 3 applic TP DAILY [facility] Last Admin: 09/20/16 09:54 Dose: 3 applic Oxycodone HCl (Roxicodone -) 5 mg PO Q6H PRN PRN Reason: PAIN Last Admin: 09/19/16 09:27 Dose: 5 mg Polyethylene Glycol (Miralax (For Daily Use) -) 17 gm PO BID [facility] Last Admin: 09/20/16 11:13 Dose: 17 gm Senna (Senna -) 2 tab PO HS [facility] Last Admin: 09/19/16 22:40 Dose: 2 tab Simethicone (Mylicon -) 80 mg PO QID [facility] Last Admin: 09/20/16 11:13 Dose: 80 mg - Objective Vital Signs: Vital Signs Temperature 97.4 F L 09/20/16 06:00 Pulse Rate 80 09/20/16 06:00 Respiratory Rate 19 09/20/16 06:00 Blood Pressure 116/53 09/20/16 06:00 O2 Sat by Pulse Oximetry (%) 97 09/20/16 06:00 Constitutional: Yes: No Distress, Obese Eyes: Yes: Conjunctiva Clear Cardiovascular: Yes: Regular Rate and Rhythm, S1, S2 Respiratory: Yes: CTA Bilaterally Gastrointestinal: Yes: Normal Bowel Sounds, Soft, Abdomen, Obese. No: Tenderness Extremities: Yes: Other (+ lymphedema R LE +erythema/ warmth R thigh) Labs: CBC, BMP 09/20/16 05:35 09/20/16 06:00 INR, PTT INR 1.22 (0.82-1.09) H 09/16/16 10:53 Assessment/Plan UTI /Possible sepsis secondary to UTI- Morganella Worsening leukocytosis Thrombocytopenia Azotemia cellulitis R LE Continue Ceftriaxone 1gm IVPB q24h Will hold further vancomycin in light of level and worsening azotemia
[2016-09-20] MEDS ORDERED: SODIUM CHLORIDE 1,000 ML IV SCH (16:00)
[2016-09-20] MEDS: ATORVASTATIN CA 20 MG TABLET (FP) PO SCH (21:59)
[2016-09-20] MEDS: SENNOSIDES 8.6MG TABLET (FP) PO SCH (21:59)
[2016-09-21] MEDS: INSULIN SLIDING SCALE (NOVOLOG) 1 VIAL SQ SCH ×4 (06:21→23:35)
[2016-09-21] MEDS: INSULIN DETEMIR 100 UNITS/ML MDV SQ SCH (06:24)
[2016-09-21] MEDS: LEVOTHYROXINE NA 50 MCG TABLET (FP) PO SCH (06:27)
[2016-09-21] MEDS: METOCLOPRAMIDE HCL 10 MG TABLET (FP) PO SCH ×4 (06:27→22:59)
[2016-09-21] MEDS: ALBUTEROL SO4 0.083% IH SOL 2.5 MG/3 ML VIAL.NEB. NEB SCH ×4 (06:57→23:10)
[2016-09-21 08:14] LABS: BASOPHIL 0.5 % (0-2.0); EOSINOPHIL 2.1 % (0-4.5); MCH 28.9 pg (25.7-33.7); MCHC 30.4 g/dl (32.0-36.0); MEAN CELL VOLUME 95.3 fl (80-96); MEAN PLT VOLUME 9.7 fl (7.5-11.1); NEUTROPHILS 82.5 % (42.8-82.8); PLATELET COUNT 146 K/MM3 (134-434); RDW 16.8 % (11.6-15.6); WHITE BLOOD COUNT 14.7 K/mm3 (4.0-10.0)
--- NOTE | 2016-09-21 08:44 | PN ---
Progress Note, Physician Chief Complaint: RLE pain with moving; no CP/SOB weight 305 d/w renal dr Mcnamara will stop IOVF for now and observe oliguric oral thrush - Current Medication List Current Medications: Active Medications Acetaminophen (Tylenol -) 650 mg PO DAILY PRN PRN Reason: PAIN LEVEL 6-10 Last Admin: 09/20/16 06:13 Dose: 650 mg Albuterol Sulfate (Ventolin 0.083% Nebulizer Soln -) 1 amp NEB Q6HPO [facility] Last Admin: 09/21/16 06:57 Dose: 1 amp Aspirin (Ecotrin -) 81 mg PO DAILY [facility] Last Admin: 09/20/16 09:56 Dose: 81 mg Atorvastatin Calcium (Lipitor -) 20 mg PO HS [facility] Last Admin: 09/20/16 21:59 Dose: 20 mg Calcium Acetate (Phoslo -) 667 mg PO TIDCM [facility] Last Admin: 09/20/16 17:18 Dose: 667 mg Cyanocobalamin (Vitamin B12 -) 1,000 mcg PO DAILY [facility] Last Admin: 09/20/16 09:57 Dose: 1,000 mcg Docusate Sodium (Colace -) 200 mg PO DAILY [facility] Last Admin: 09/20/16 09:56 Dose: 200 mg Epoetin Dawood (Procrit -) 10,000 unit SQ Rice@10 [facility] Fluticasone Propionate (Flonase -) 1 spray NS DAILY [facility] Last Admin: 09/20/16 09:54 Dose: 1 puff Folic Acid (Folic Acid -) 1 mg PO DAILY [facility] Last Admin: 09/20/16 09:56 Dose: 1 mg Gabapentin (Neurontin -) 300 mg PO QID [facility] Last Admin: 09/20/16 22:00 Dose: 300 mg Heparin Sodium (Porcine) (Heparin -) 5,000 unit SQ BID [facility] Last Admin: 09/20/16 21:59 Dose: 5,000 unit Ceftriaxone Sodium (Rocephin 1gm Ivpb (Pre-Docked)) 50 mls @ 100 mls/hr IVPB DAILY [facility] Last Admin: 09/20/16 09:55 Dose: 100 mls/hr Sodium Chloride (Normal Saline -) 1,000 mls @ 84 mls/hr IV ASDIR [facility] Last Admin: 09/20/16 17:19 Dose: 84 mls/hr Insulin Aspart (Novolog Vial Sliding Scale -) 1 vial SQ [facility] PRN Reason: Protocol Last Admin: 09/21/16 06:21 Dose: Not Given Insulin Detemir (Levemir Vial) 10 units SQ BK [facility] Last Admin: 09/21/16 06:24 Dose: 10 units Levothyroxine Sodium (Synthroid -) 50 mcg PO ACBK [facility] Last Admin: 09/21/16 06:27 Dose: 50 mcg Loratadine (Claritin -) 10 mg PO DAILY [facility] Last Admin: 09/20/16 09:57 Dose: 10 mg Metoclopramide HCl (Reglan -) 5 mg PO [facility] Last Admin: 09/21/16 06:27 Dose: 5 mg Metoprolol Succinate (Toprol Xl -) 25 mg PO DAILY [facility] Last Admin: 09/20/16 09:56 Dose: 25 mg Mupirocin (Bactroban 2% Cream -) 1 applic TP BID [facility] Last Admin: 09/20/16 22:04 Dose: 1 applic Nystatin (Mycostatin Cream -) 3 applic TP DAILY [facility] Last Admin: 09/20/16 09:54 Dose: 3 applic Oxycodone HCl (Roxicodone -) 5 mg PO Q6H PRN PRN Reason: PAIN Last Admin: 09/19/16 09:27 Dose: 5 mg Polyethylene Glycol (Miralax (For Daily Use) -) 17 gm PO BID [facility] Last Admin: 09/20/16 22:00 Dose: 17 gm Senna (Senna -) 2 tab PO HS [facility] Last Admin: 09/20/16 21:59 Dose: 2 tab Simethicone (Mylicon -) 80 mg PO QID [facility] Last Admin: 09/20/16 21:59 Dose: 80 mg - Objective Vital Signs: Vital Signs Temperature 96.7 F L 09/21/16 06:00 Pulse Rate 76 09/21/16 06:00 Respiratory Rate 20 09/21/16 06:00 Blood Pressure 127/53 09/21/16 06:00 O2 Sat by Pulse Oximetry (%) 97 09/21/16 05:20 Constitutional: Yes: No Distress, Calm Eyes: Yes: Conjunctiva Clear HENT: Yes: Atraumatic Neck: Yes: Supple Cardiovascular: Yes: Regular Rate and Rhythm Respiratory: Yes: Diminished Gastrointestinal: Yes: Soft, Abdomen, Obese. No: Distention, Tenderness Genitourinary: No: Hematuria Musculoskeletal: No: Joint Stiffness, Joint Swelling Extremities: Yes: Erythema. No: Cold, Cool Edema: Yes (RLE) Integumentary: Yes: Rash (RLE) Neurological: Yes: WNL, Alert, Oriented ...Motor Strength: WNL Psychiatric: Yes: WNL, Alert, Oriented. No: Agitated, Suicidal Ideation Labs: CBC, BMP 09/21/16 05:43 INR, PTT INR 1.22 (0.82-1.09) H 09/16/16 10:53 - ....Imaging Other: Report Reviewed Assessment/Plan The patient is a 71 year old female brought via EMS from [facility], with a significant past medical history of Hypothyroidism, Diabetes, HTN, CHF, CO x2, (on home O2, 2L), left BKA, anemia, essential tremors, CAD, GERD, CKD and obesity, admitted with UTI, RLE cellulitis, neck and R axilla fungic rash improved; sepsis, low BP/ r/o septic shock; R foot cold r/o ischemia - surgery f /u ARF oliguric - renal consult f/u; renal US noted IVF stop broad spectrum ATB topical nystatin; swish and swallow po nystatin hold BP meds negative blood cx, UCx Morganella; ID, cardiology f/u f/u labs DVT falls decubs and aspiration PFX HOB BGM, DM control; prognosis guarded d/w pt and staff
[2016-09-21 10:05] LABS: ALBUMIN 2.1 g/dl (3.4-5.0); BILIRUBIN,TOTAL 0.5 mg/dL (0.2-1.0); COCKROFT - GAULT 50.4815; CREATININE 2.2 mg/dL (0.55-1.02); TOT PROT 6.4 g/dl (6.4-8.2)
[2016-09-21] MEDS ORDERED: PT OWN MED DRAWER 7, Y5N ONE (11:24)
[2016-09-21] MEDS: DOCUSATE SODIUM 100 MG CAPSULE (FP) PO SCH (11:34)
[2016-09-21] MEDS: ASPIRIN COATED 81 MG TABLET.EC PO SCH (11:34)
[2016-09-21] MEDS: CYANOCOBALAMIN 1,000 MCG TABLET (FP) PO SCH (11:34)
[2016-09-21] MEDS: SIMETHICONE 80 MG TAB.CHEW (FP) PO SCH ×3 (11:34→22:55)
[2016-09-21] MEDS: METOPROLOL SUCCINATE 25 MG TAB.SR.24H (FP) PO SCH (11:35)
[2016-09-21] MEDS: CALCIUM ACETATE 667 MG CAPSULE (FP) PO SCH ×3 (11:36→20:48)
[2016-09-21] MEDS: LORATADINE 10 MG TABLET PO SCH (11:36)
[2016-09-21] MEDS: GABAPENTIN 300 MG CAPSULE (FP) PO SCH ×4 (11:36→22:59)
[2016-09-21] MEDS: FOLIC ACID 1 MG TABLET (FP) PO SCH (11:36)
[2016-09-21] MEDS: HEPARIN NA (PORCINE) 5,000 UNITS/ML 1ML VIAL SQ SCH ×2 (11:37→22:55)
--- NOTE | 2016-09-21 12:31 | PN ---
Progress Note (short form) - Note Progress Note: Renal Follow up for CRISTELA on CKD Pt seen and examined at the bedside no acute complaints awake and alert denies any sob or cough no abd pain near oliguric urine output Vital Signs Temperature 96.7 F L 09/21/16 06:00 Pulse Rate 82 09/21/16 09:03 Respiratory Rate 20 09/21/16 09:03 Blood Pressure 125/47 09/21/16 09:03 O2 Sat by Pulse Oximetry (%) 97 09/21/16 05:20 Intake & Output 09/18/16 09/19/16 09/20/16 09/21/16 23:59 23:59 23:59 23:59 Intake Total 2070 2764 2736 1000 Output Total 120 550 350 100 Balance 1950 2214 2386 900 Weight 292 lb 305 lb Gen: NAD, awake and alert HEENT: NC/AT, No JVD CVS: RRR, No M/R Lungs: Dec BS at the lung bases Abd: soft NT/ND Ext: 2+ lymphedema Neuro:AAOx3, no focal defects CBC, BMP 09/21/16 05:43 09/21/16 05:43 Laboratory Tests 09/21/16 05:43 Calcium 8.0 L Albumin 2.1 L Current Medications Acetaminophen (Tylenol -) 650 mg PO DAILY PRN PRN Reason: PAIN LEVEL 6-10 Last Admin: 09/20/16 06:13 Dose: 650 mg Albuterol Sulfate (Ventolin 0.083% Nebulizer Soln -) 1 amp NEB Q6HPO [facility] Last Admin: 09/21/16 11:26 Dose: 1 amp Aspirin (Ecotrin -) 81 mg PO DAILY [facility] Last Admin: 09/21/16 11:34 Dose: 81 mg Atorvastatin Calcium (Lipitor -) 20 mg PO HS [facility] Last Admin: 09/20/16 21:59 Dose: 20 mg Calcium Acetate (Phoslo -) 667 mg PO TIDCM [facility] Last Admin: 09/21/16 11:36 Dose: 667 mg Cyanocobalamin (Vitamin B12 -) 1,000 mcg PO DAILY [facility] Last Admin: 09/21/16 11:34 Dose: 1,000 mcg Docusate Sodium (Colace -) 200 mg PO DAILY [facility] Last Admin: 09/21/16 11:34 Dose: 200 mg Epoetin Dawood (Procrit -) 10,000 unit SQ Rice@10 [facility] Fluticasone Propionate (Flonase -) 1 spray NS DAILY [facility] Last Admin: 09/20/16 09:54 Dose: 1 puff Folic Acid (Folic Acid -) 1 mg PO DAILY [facility] Last Admin: 09/21/16 11:36 Dose: 1 mg Gabapentin (Neurontin -) 300 mg PO QID [facility] Last Admin: 09/21/16 11:36 Dose: 300 mg Heparin Sodium (Porcine) (Heparin -) 5,000 unit SQ BID [facility] Last Admin: 09/21/16 11:37 Dose: 5,000 unit Ceftriaxone Sodium (Rocephin 1gm Ivpb (Pre-Docked)) 50 mls @ 100 mls/hr IVPB DAILY [facility] Last Admin: 09/20/16 09:55 Dose: 100 mls/hr Insulin Aspart (Novolog Vial Sliding Scale -) [address] [facility] PRN Reason: Protocol Last Admin: 09/21/16 06:21 Dose: Not Given Insulin Detemir (Levemir Vial) 10 units SQ ACBK [facility] Last Admin: 09/21/16 06:24 Dose: 10 units Levothyroxine Sodium (Synthroid -) 50 mcg PO ACBK [facility] Last Admin: 09/21/16 06:27 Dose: 50 mcg Loratadine (Claritin -) 10 mg PO DAILY [facility] Last Admin: 09/21/16 11:36 Dose: 10 mg Metoclopramide HCl (Reglan -) 5 mg PO ACHS [facility] Last Admin: 09/21/16 11:33 Dose: 5 mg Metoprolol Succinate (Toprol Xl -) 25 mg PO DAILY [facility] Last Admin: 09/21/16 11:35 Dose: 25 mg Mupirocin (Bactroban 2% Cream -) 1 applic TP BID [facility] Last Admin: 09/20/16 22:04 Dose: 1 applic Nystatin (Mycostatin Cream -) 3 applic TP DAILY [facility] Last Admin: 09/20/16 09:54 Dose: 3 applic Nystatin (Nystatin Oral Suspension -) 500,000 units PO Q6HPO [facility] Oxycodone HCl (Roxicodone -) 5 mg PO Q6H PRN PRN Reason: PAIN Last Admin: 09/19/16 09:27 Dose: 5 mg Polyethylene Glycol (Miralax (For Daily Use) -) 17 gm PO BID [facility] Last Admin: 09/20/16 22:00 Dose: 17 gm Senna (Senna -) 2 tab PO HS [facility] Last Admin: 09/20/16 21:59 Dose: 2 tab Simethicone (Mylicon -) 80 mg PO QID [facility] Last Admin: 09/21/16 11:34 Dose: 80 mg A/P 71 year old woman with PMhx of CKD stage 3 w/o significant proteinuria, CHF, COPD, PVD, Chronic LE lymphedema, IDDM, CAD who presented wit fever with BUN/Cr of 85/1.5 and K of 5..5. #CRISTELA on CKD Renal function w/o improvement despite IVF hydration over the past several days pt with signs of 3rd spacing, will d/c IVF today if BP is stable can resume diuretics starting tomorrow dose all meds for Cr Cl less then 30 #Hyperkalemia Continue low potassium diet #Fever continue Abx as per ID dose vanco by levels #Normocytic Anemia iron and stool studies pending continue Epogen 3x weekly no indication for transfusion Thank you Lambert Mcnamara DO
--- NOTE | 2016-09-21 13:26 | PN ---
Progress Note (short form) - Note Progress Note: CC: trop elevation S: no cp, palps, sob, dizziness. IVF stopped today. Current Medications Acetaminophen (Tylenol -) 650 mg PO DAILY PRN PRN Reason: PAIN LEVEL 6-10 Last Admin: 09/20/16 06:13 Dose: 650 mg Albuterol Sulfate (Ventolin 0.083% Nebulizer Soln -) 1 amp NEB Q6HPO [facility] Last Admin: 09/21/16 11:26 Dose: 1 amp Aspirin (Ecotrin -) 81 mg PO DAILY [facility] Last Admin: 09/21/16 11:34 Dose: 81 mg Atorvastatin Calcium (Lipitor -) 20 mg PO HS [facility] Last Admin: 09/20/16 21:59 Dose: 20 mg Calcium Acetate (Phoslo -) 667 mg PO TIDCM [facility] Last Admin: 09/21/16 11:36 Dose: 667 mg Cyanocobalamin (Vitamin B12 -) 1,000 mcg PO DAILY [facility] Last Admin: 09/21/16 11:34 Dose: 1,000 mcg Docusate Sodium (Colace -) 200 mg PO DAILY [facility] Last Admin: 09/21/16 11:34 Dose: 200 mg Epoetin Dawood (Procrit -) 10,000 unit SQ Rice@10 [facility] Fluticasone Propionate (Flonase -) 1 spray NS DAILY [facility] Last Admin: 09/20/16 09:54 Dose: 1 puff Folic Acid (Folic Acid -) 1 mg PO DAILY [facility] Last Admin: 09/21/16 11:36 Dose: 1 mg Gabapentin (Neurontin -) 300 mg PO QID [facility] Last Admin: 09/21/16 11:36 Dose: 300 mg Heparin Sodium (Porcine) (Heparin -) 5,000 unit SQ BID [facility] Last Admin: 09/21/16 11:37 Dose: 5,000 unit Ceftriaxone Sodium (Rocephin 1gm Ivpb (Pre-Docked)) 50 mls @ 100 mls/hr IVPB DAILY [facility] Last Admin: 09/20/16 09:55 Dose: 100 mls/hr Insulin Aspart (Novolog Vial Sliding Scale -) 1 vial SQ ACHS [facility] PRN Reason: Protocol Last Admin: 09/21/16 06:21 Dose: Not Given Insulin Detemir (Levemir Vial) 10 units SQ ACBK [facility] Last Admin: 09/21/16 06:24 Dose: 10 units Levothyroxine Sodium (Synthroid -) 50 mcg PO ACBK [facility] Last Admin: 09/21/16 06:27 Dose: 50 mcg Loratadine (Claritin -) 10 mg PO DAILY [facility] Last Admin: 09/21/16 11:36 Dose: 10 mg Metoclopramide HCl (Reglan -) 5 mg PO ACHS [facility] Last Admin: 09/21/16 11:33 Dose: 5 mg Metoprolol Succinate (Toprol Xl -) 25 mg PO DAILY [facility] Last Admin: 09/21/16 11:35 Dose: 25 mg Mupirocin (Bactroban 2% Cream -) 1 applic TP BID [facility] Last Admin: 09/20/16 22:04 Dose: 1 applic Nystatin (Mycostatin Cream -) 3 applic TP DAILY [facility] Last Admin: 09/20/16 09:54 Dose: 3 applic Nystatin (Nystatin Oral Suspension -) 500,000 units PO Q6HPO [facility] Oxycodone HCl (Roxicodone -) 5 mg PO Q6H PRN PRN Reason: PAIN Last Admin: 09/19/16 09:27 Dose: 5 mg Polyethylene Glycol (Miralax (For Daily Use) -) 17 gm PO BID [facility] Last Admin: 09/20/16 22:00 Dose: 17 gm Senna (Senna -) 2 tab PO HS [facility] Last Admin: 09/20/16 21:59 Dose: 2 tab Simethicone (Mylicon -) 80 mg PO QID [facility] Last Admin: 09/21/16 11:34 Dose: 80 mg Vital Signs - 24 hr 09/20/16 09/20/16 09/20/16 14:02 18:00 21:00 Temperature 98.8 F 99.3 F Pulse Rate 84 86 Respiratory 20 19 Rate Blood Pressure 119/52 112/51 O2 Sat by Pulse 97 Oximetry (%) 09/20/16 09/21/16 09/21/16 22:00 00:46 02:01 Temperature 98.1 F 98.0 F Pulse Rate 86 83 Respiratory 20 20 Rate Blood Pressure 123/49 133/59 O2 Sat by Pulse 95 Oximetry (%) 09/21/16 09/21/16 09/21/16 05:20 06:00 09:03 Temperature 96.7 F L Pulse Rate 76 82 Respiratory 20 20 Rate Blood Pressure 127/53 125/47 O2 Sat by Pulse 97 Oximetry (%) Intake & Output 09/19/16 09/20/16 09/21/16 09/22/16 07:59 07:59 07:59 07:59 Intake Total 2854 2798 2368 Output Total 120 550 450 Balance 2734 2248 1918 Weight 305 lb NAD, obese, jvd tds RRR nl s1, s2 2/6 murmur at sternal border and apex scattered rhonchi bl, poor effort + bs soft obese edematous nt +distension diminished distal pulses. s/p lt bka tense le edema erythema/venous stasis changes/skin excoriations and peau d' orange changes of LE skin new bulla formation aaox3 no carotid bruit no jaundice diaphoresis CBC, BMP 09/21/16 05:43 09/21/16 05:43 EKG here: stach, 105 bpm. poor r wave progression. non- specific tw changes, no sig change from prior tele: sr, pvc Echo 07/01/2016: Mild decr EF. paradoxical septal motion with mild HK of anteroseptum. RV not seen. 1+ mr/tr. mild (although MG only 12 mmHg). Echo 06/2015: mild-mod decr EF--global; nl RV; mild LAE; mild-mod MR/TR; RVSP 30- 40; small peric effusion; + pleural eff cxr: tds a/p: 71 yo with h/o HFpEF, CAD s/p MO, HTN, HL, pHTN, MIRIAM, o2 dep't copd, CKD, IDDM, hypothyroid and chronic LLE cellulitis/lt foot gangrene s/p L BKA, here with n/ v. intermediate troponin elevation/CAD -has previously refused stress tests. h/o prior NSTEMI x 2 (2012, 2014) in setting of demand (sepsis/anemia). Con't JUAN ANTONIO, but current elevation likely in setting of demand. -cath previously deferred due to: pt preference; hi risk of vascular complications (obese habitus), hi risk of BERNARDINO, and h/o recurrent anemia, possible occult GIB -currently without anginal sx's. EKG unchanged. Con't statin, BB, asa. imdur held for hypotension. -MATEO deferred previously due to labile creat's--no change; chronic foot wound, gangrene, now s/p bka 07/03/16: - per pmd/vascular chronic HFpEF/pulm HTN/venous ins'y/acute on chronic hypoxic and hypercapneic resp failure: - mild systolic dysfunction, presumed RV dysfunction. - pt currently on IVF with fever/infection. holding diuresis for now. Patient with chronic third spacing and total body volume overload, but intermittently with vascular depletion. - 09/21: IVF stopped today per renal, diuresis per renal. - Abdomen tense and distended, abd u/s --> no ascites PSVT: -likely brief run of ATach on prior tele, no recurrence -con't bb as bp tolerates VTach: -17 beat run of NSVT on prior tele (previous admit), no recurrence -K/Mag repletion prn -con't bb as bp tolerates CKD - cr above baseline, no sig improvement with ivfs/holding diuretics. stopped IVF 09/21. - renal following MIRIAM - on bipap qhs. anemia: -chronic, baseline runs 8s-9s; -freq acute drops/PRBCs in past; currently above baseline. HTN: -controlled. monitor for hypotension in setting of infection - con't home bp meds, as bp tolerates. imdur held for hypotension.
[2016-09-21] MEDS: CEFTRIAXONE 50 ML IVPB SCH (15:38)
[2016-09-21] MEDS: NYSTATIN 500,000 UNITS/5 ML SUSPENSION PO SCH ×3 (15:54→20:50)
[2016-09-21] MEDS: POLYETHYLENE GLYCOL 3350 119 GM BTL PO SCH (22:55)
[2016-09-21] MEDS: MUPIROCIN CA 2% TOPICAL CREAM 15 GM TUBE TP SCH (22:55)
[2016-09-21] MEDS: ATORVASTATIN CA 20 MG TABLET (FP) PO SCH (22:56)
[2016-09-21] MEDS: SENNOSIDES 8.6MG TABLET (FP) PO SCH (22:59)
[2016-09-22] MEDS: METOCLOPRAMIDE HCL 10 MG TABLET (FP) PO SCH ×3 (06:26→22:09)
[2016-09-22] MEDS: INSULIN DETEMIR 100 UNITS/ML MDV SQ SCH (06:26)
[2016-09-22] MEDS: LEVOTHYROXINE NA 50 MCG TABLET (FP) PO SCH (06:26)
[2016-09-22] MEDS: INSULIN SLIDING SCALE (NOVOLOG) 1 VIAL SQ SCH ×4 (06:27→22:13)
[2016-09-22] MEDS: NYSTATIN 500,000 UNITS/5 ML SUSPENSION PO SCH ×3 (06:27→22:10)
[2016-09-22] MEDS: ALBUTEROL SO4 0.083% IH SOL 2.5 MG/3 ML VIAL.NEB. NEB SCH ×3 (06:58→20:03)
--- NOTE | 2016-09-22 07:29 | PN ---
Progress Note (short form) - Note Progress Note: Renal Follow up for CRISTELA on CKD Pt seen and examined at the bedside complains of pain when being moved on BIPAP has weeping edema in LE no sob, chest pain Vital Signs Temperature 98.5 F 09/22/16 06:00 Pulse Rate 77 09/22/16 06:00 Respiratory Rate 20 09/22/16 06:00 Blood Pressure 111/52 09/22/16 06:00 O2 Sat by Pulse Oximetry (%) 96 09/22/16 04:21 Intake & Output 09/19/16 09/20/16 09/21/16 09/22/16 23:59 23:59 23:59 23:59 Intake Total 2764 2736 2230 Output Total 550 350 500 Balance 2214 2386 1730 Weight 305 lb Gen: NAD, awake and alert, on BIPAP HEENT: NC/AT, No JVD CVS: RRR, No M/R Lungs: Dec BS at the lung bases Abd: soft NT/ND Ext: 2+ lymphedema, weeping edema right LE Neuro:AAOx3, no focal defects CBC, BMP 09/21/16 05:43 09/21/16 05:43 Current Medications Acetaminophen (Tylenol -) 650 mg PO DAILY PRN PRN Reason: PAIN LEVEL 6-10 Last Admin: 09/20/16 06:13 Dose: 650 mg Albuterol Sulfate (Ventolin 0.083% Nebulizer Soln -) 1 amp NEB Q6HPO [facility] Last Admin: 09/22/16 06:58 Dose: 1 amp Aspirin (Ecotrin -) 81 mg PO DAILY [facility] Last Admin: 09/21/16 11:34 Dose: 81 mg Atorvastatin Calcium (Lipitor -) 20 mg PO HS [facility] Last Admin: 09/21/16 22:56 Dose: 20 mg Calcium Acetate (Phoslo -) 667 mg PO TIDCM [facility] Last Admin: 09/21/16 20:48 Dose: 667 mg Cyanocobalamin (Vitamin B12 -) 1,000 mcg PO DAILY [facility] Last Admin: 09/21/16 11:34 Dose: 1,000 mcg Docusate Sodium (Colace -) 200 mg PO DAILY [facility] Last Admin: 09/21/16 11:34 Dose: 200 mg Epoetin Dawood (Procrit -) 10,000 unit SQ Rice@10 [facility] Fluticasone Propionate (Flonase -) 1 spray NS DAILY [facility] Last Admin: 09/20/16 09:54 Dose: 1 puff Folic Acid (Folic Acid -) 1 mg PO DAILY [facility] Last Admin: 09/21/16 11:36 Dose: 1 mg Gabapentin (Neurontin -) 300 mg PO QID [facility] Last Admin: 09/21/16 22:59 Dose: Not Given Heparin Sodium (Porcine) (Heparin -) 5,000 unit SQ BID [facility] Last Admin: 09/21/16 22:55 Dose: 5,000 unit Ceftriaxone Sodium (Rocephin 1gm Ivpb (Pre-Docked)) 50 mls @ 100 mls/hr IVPB DAILY [facility] Last Admin: 09/21/16 15:38 Dose: 100 mls/hr Insulin Aspart (Novolog Vial Sliding Scale -) 1 vial SQ [facility] PRN Reason: Protocol Last Admin: 09/22/16 06:27 Dose: Not Given Insulin Detemir (Levemir Vial) 10 units SQ ACBK [facility] Last Admin: 09/22/16 06:26 Dose: 10 units Levothyroxine Sodium (Synthroid -) 50 mcg PO ACBK [facility] Last Admin: 09/22/16 06:26 Dose: 50 mcg Loratadine (Claritin -) 10 mg PO DAILY [facility] Last Admin: 09/21/16 11:36 Dose: 10 mg Metoclopramide HCl (Reglan -) 5 mg PO ACHS [facility] Last Admin: 09/22/16 06:26 Dose: 5 mg Metoprolol Succinate (Toprol Xl -) 25 mg PO DAILY [facility] Last Admin: 09/21/16 11:35 Dose: 25 mg Mupirocin (Bactroban 2% Cream -) 1 applic TP BID [facility] Last Admin: 09/21/16 22:55 Dose: 1 applic Nystatin (Mycostatin Cream -) 3 applic TP DAILY [facility] Last Admin: 09/20/16 09:54 Dose: 3 applic Nystatin (Nystatin Oral Suspension -) 500,000 units PO Q6HPO [facility] Last Admin: 09/22/16 06:27 Dose: 500,000 units Oxycodone HCl (Roxicodone -) 5 mg PO Q6H PRN PRN Reason: PAIN Last Admin: 09/19/16 09:27 Dose: 5 mg Polyethylene Glycol (Miralax (For Daily Use) -) 17 gm PO BID [facility] Last Admin: 09/21/16 22:55 Dose: 17 gm Senna (Senna -) 2 tab PO HS [facility] Last Admin: 09/21/16 22:59 Dose: 2 tab Simethicone (Mylicon -) 80 mg PO QID [facility] Last Admin: 09/21/16 22:55 Dose: Not Given A/P 71 year old woman with PMhx of CKD stage 3 w/o significant proteinuria, CHF, COPD, PVD, Chronic LE lymphedema, IDDM, CAD who presented wit fever with BUN/Cr of 85/1.5 and K of 5..5. #CRISTELA on CKD Todays labs pending given worsening edema, will restart Oral Torsemide 40mg Daily Trend BUN/Cr high BUN but no signs of overt uremia #Hyperkalemia Continue low potassium diet should improve on diuretics #Fever continue Abx as per ID dose vanco by levels #Normocytic Anemia iron and stool studies pending continue Epogen 3x weekly no indication for transfusion Thank you Lambert Mcnamara DO
[2016-09-22 07:52] LABS: BASOPHIL 0.7 % (0-2.0); EOSINOPHIL 2.9 % (0-4.5); MEAN CELL VOLUME 93.6 fl (80-96); MEAN PLT VOLUME 9.1 fl (7.5-11.1); NEUTROPHILS 77.7 % (42.8-82.8); PLATELET COUNT 161 K/MM3 (134-434); RDW 16.2 % (11.6-15.6); WHITE BLOOD COUNT 11.2 K/mm3 (4.0-10.0)
[2016-09-22 08:18] LABS: ALBUMIN 1.9 g/dl (3.4-5.0); CALCIUM 8.4 mg/dL (8.5-10.1); MAGNESIUM 2.6 mg/dL (1.8-2.4)
[2016-09-22 08:21] LABS: BILIRUBIN,TOTAL 0.5 mg/dL (0.2-1.0); COCKROFT - GAULT 51.272; CREATININE 2.2 mg/dL (0.55-1.02); PHOSPHOROUS 4.1 mg/dL (2.5-4.9); TOT PROT 6.3 g/dl (6.4-8.2)
[2016-09-22] MEDS: ASPIRIN COATED 81 MG TABLET.EC PO SCH (09:54)
[2016-09-22] MEDS: TORSEMIDE 20 MG TABLET (FP) PO SCH (09:55)
[2016-09-22] MEDS: GABAPENTIN 300 MG CAPSULE (FP) PO SCH ×3 (09:55→22:10)
[2016-09-22] MEDS: SIMETHICONE 80 MG TAB.CHEW (FP) PO SCH ×3 (09:56→22:08)
[2016-09-22] MEDS: METOPROLOL SUCCINATE 25 MG TAB.SR.24H (FP) PO SCH (09:56)
[2016-09-22] MEDS: CALCIUM ACETATE 667 MG CAPSULE (FP) PO SCH ×2 (09:56→17:33)
[2016-09-22] MEDS: CYANOCOBALAMIN 1,000 MCG TABLET (FP) PO SCH (09:56)
[2016-09-22] MEDS: LORATADINE 10 MG TABLET PO SCH (09:57)
[2016-09-22] MEDS: HEPARIN NA (PORCINE) 5,000 UNITS/ML 1ML VIAL SQ SCH ×2 (09:57→22:10)
[2016-09-22] MEDS: DOCUSATE SODIUM 100 MG CAPSULE (FP) PO SCH (09:57)
[2016-09-22] MEDS: FOLIC ACID 1 MG TABLET (FP) PO SCH (09:58)
[2016-09-22] MEDS: CEFTRIAXONE 50 ML IVPB SCH (09:58)
[2016-09-22] MEDS: POLYETHYLENE GLYCOL 3350 119 GM BTL PO SCH ×2 (10:11→22:07)
--- NOTE | 2016-09-22 11:18 | PN ---
Progress Note, Physician Chief Complaint: in bed alert awake NAD afebrile; on/off RLE pain; now has a new blister on R foot - Current Medication List Current Medications: Active Medications Acetaminophen (Tylenol -) 650 mg PO DAILY PRN PRN Reason: PAIN LEVEL 6-10 Last Admin: 09/20/16 06:13 Dose: 650 mg Albuterol Sulfate (Ventolin 0.083% Nebulizer Soln -) 1 amp NEB Q6HPO [facility] Last Admin: 09/22/16 06:58 Dose: 1 amp Aspirin (Ecotrin -) 81 mg PO DAILY [facility] Last Admin: 09/22/16 09:54 Dose: 81 mg Atorvastatin Calcium (Lipitor -) 20 mg PO HS [facility] Last Admin: 09/21/16 22:56 Dose: 20 mg Calcium Acetate (Phoslo -) 667 mg PO TIDCM [facility] Last Admin: 09/22/16 09:56 Dose: 667 mg Cyanocobalamin (Vitamin B12 -) 1,000 mcg PO DAILY [facility] Last Admin: 09/22/16 09:56 Dose: 1,000 mcg Docusate Sodium (Colace -) 200 mg PO DAILY [facility] Last Admin: 09/22/16 09:57 Dose: 200 mg Epoetin Dawood (Procrit -) 10,000 unit SQ Rice@10 [facility] Fluticasone Propionate (Flonase -) 1 spray NS DAILY [facility] Last Admin: 09/20/16 09:54 Dose: 1 puff Folic Acid (Folic Acid -) 1 mg PO DAILY [facility] Last Admin: 09/22/16 09:58 Dose: 1 mg Gabapentin (Neurontin -) 300 mg PO QID [facility] Last Admin: 09/22/16 09:55 Dose: 300 mg Heparin Sodium (Porcine) (Heparin -) 5,000 unit SQ BID [facility] Last Admin: 09/22/16 09:57 Dose: 5,000 unit Ceftriaxone Sodium (Rocephin 1gm Ivpb (Pre-Docked)) 50 mls @ 100 mls/hr IVPB DAILY [facility] Last Admin: 09/22/16 09:58 Dose: 100 mls/hr Insulin Aspart (Novolog Vial Sliding Scale -) 1 vial SQ ACHS [facility] PRN Reason: Protocol Last Admin: 09/22/16 06:27 Dose: Not Given Insulin Detemir (Levemir Vial) 10 units SQ ACBK [facility] Last Admin: 09/22/16 06:26 Dose: 10 units Levothyroxine Sodium (Synthroid -) 50 mcg PO ACBK [facility] Last Admin: 09/22/16 06:26 Dose: 50 mcg Loratadine (Claritin -) 10 mg PO DAILY [facility] Last Admin: 09/22/16 09:57 Dose: 10 mg Metoclopramide HCl (Reglan -) 5 mg PO ACHS [facility] Last Admin: 09/22/16 06:26 Dose: 5 mg Metoprolol Succinate (Toprol Xl -) 25 mg PO DAILY [facility] Last Admin: 09/22/16 09:56 Dose: 25 mg Mupirocin (Bactroban 2% Cream -) 1 applic TP BID [facility] Last Admin: 09/21/16 22:55 Dose: 1 applic Nystatin (Mycostatin Cream -) 3 applic TP DAILY [facility] Last Admin: 09/20/16 09:54 Dose: 3 applic Nystatin (Nystatin Oral Suspension -) 500,000 units PO Q6HPO [facility] Last Admin: 09/22/16 06:27 Dose: 500,000 units Oxycodone HCl (Roxicodone -) 5 mg PO Q6H PRN PRN Reason: PAIN Last Admin: 09/19/16 09:27 Dose: 5 mg Polyethylene Glycol (Miralax (For Daily Use) -) 17 gm PO BID [facility] Last Admin: 09/22/16 10:11 Dose: 17 gm Senna (Senna -) 2 tab PO HS [facility] Last Admin: 09/21/16 22:59 Dose: 2 tab Simethicone (Mylicon -) 80 mg PO QID [facility] Last Admin: 09/22/16 09:56 Dose: 80 mg Torsemide (Demadex -) 40 mg PO DAILY [facility] Last Admin: 09/22/16 09:55 Dose: 40 mg - Objective Vital Signs: Vital Signs Temperature 98.5 F 09/22/16 06:00 Pulse Rate 77 09/22/16 06:00 Respiratory Rate 20 09/22/16 06:00 Blood Pressure 111/52 09/22/16 06:00 O2 Sat by Pulse Oximetry (%) 96 09/22/16 04:21 Constitutional: Yes: No Distress, Calm Eyes: Yes: Conjunctiva Clear HENT: Yes: Atraumatic Neck: Yes: Supple Cardiovascular: Yes: Regular Rate and Rhythm Respiratory: Yes: Diminished Gastrointestinal: Yes: Soft, Abdomen, Obese. No: Tenderness Genitourinary: No: CVA Tenderness - Left, CVA Tenderness - Right, Hematuria Musculoskeletal: No: Joint Stiffness, Joint Swelling Extremities: Yes: Cold, Erythema (RLE) Edema: Yes (RLE) Neurological: Yes: Alert ...Motor Strength: WNL (functional quadriplegia) Psychiatric: Yes: Alert. No: Agitated, Suicidal Ideation Labs: CBC, BMP 09/22/16 05:40 09/22/16 05:40 INR, PTT INR 1.22 (0.82-1.09) H 09/16/16 10:53 - ....Imaging Other: Report Reviewed Assessment/Plan The patient is a 71 year old female brought via EMS from [facility], with a significant past medical history of Hypothyroidism, Diabetes, HTN, CHF, [place] x2, (on home O2, 2L), left BKA, anemia, essential tremors, CAD, GERD, CKD and obesity, admitted with UTI, RLE cellulitis, neck and R axilla fungic rash improved; sepsis, low BP/ r/o septic shock; R foot cold r/o ischemia - surgery f /u ARF oliguric - renal consult f/u; renal US noted IVF stopped check CXR r/o CHF broad spectrum ATB topical nystatin for rash; swish and swallow po nystatin as ordered for oral fungus, better now hold BP meds negative blood cx, UCx Morganella; ID, cardiology f/u f/u labs DVT falls decubs and aspiration PFX HOB BGM, DM control; prognosis guarded d/w pt and staff
--- NOTE | 2016-09-22 15:27 | PN ---
Progress Note (short form) - Note Progress Note: CC: trop elevation S: no cp, palps, sob, dizziness. IVF stopped yesterday. Current Medications Acetaminophen (Tylenol -) 650 mg PO DAILY PRN PRN Reason: PAIN LEVEL 6-10 Last Admin: 09/20/16 06:13 Dose: 650 mg Albuterol Sulfate (Ventolin 0.083% Nebulizer Soln -) 1 amp NEB Q6HPO [facility] Last Admin: 09/22/16 06:58 Dose: 1 amp Aspirin (Ecotrin -) 81 mg PO DAILY [facility] Last Admin: 09/22/16 09:54 Dose: 81 mg Atorvastatin Calcium (Lipitor -) 20 mg PO HS [facility] Last Admin: 09/21/16 22:56 Dose: 20 mg Calcium Acetate (Phoslo -) 667 mg PO TIDCM [facility] Last Admin: 09/22/16 09:56 Dose: 667 mg Cyanocobalamin (Vitamin B12 -) 1,000 mcg PO DAILY [facility] Last Admin: 09/22/16 09:56 Dose: 1,000 mcg Docusate Sodium (Colace -) 200 mg PO DAILY [facility] Last Admin: 09/22/16 09:57 Dose: 200 mg Epoetin Dawood (Procrit -) 10,000 unit SQ Rice@10 [facility] Fluticasone Propionate (Flonase -) 1 spray NS DAILY [facility] Last Admin: 09/20/16 09:54 Dose: 1 puff Folic Acid (Folic Acid -) 1 mg PO DAILY [facility] Last Admin: 09/22/16 09:58 Dose: 1 mg Gabapentin (Neurontin -) 300 mg PO QID [facility] Last Admin: 09/22/16 09:55 Dose: 300 mg Heparin Sodium (Porcine) (Heparin -) 5,000 unit SQ BID [facility] Last Admin: 09/22/16 09:57 Dose: 5,000 unit Ceftriaxone Sodium (Rocephin 1gm Ivpb (Pre-Docked)) 50 mls @ 100 mls/hr IVPB DAILY [facility] Last Admin: 09/22/16 09:58 Dose: 100 mls/hr Insulin Aspart (Novolog Vial Sliding Scale -) 1 vial SQ ACHS [facility] PRN Reason: Protocol Last Admin: 09/22/16 11:50 Dose: Not Given Insulin Detemir (Levemir Vial) 10 units SQ ACBK [facility] Last Admin: 09/22/16 06:26 Dose: 10 units Levothyroxine Sodium (Synthroid -) 50 mcg PO ACBK [facility] Last Admin: 09/22/16 06:26 Dose: 50 mcg Loratadine (Claritin -) 10 mg PO DAILY [facility] Last Admin: 09/22/16 09:57 Dose: 10 mg Metoclopramide HCl (Reglan -) 5 mg PO ACHS [facility] Last Admin: 09/22/16 06:26 Dose: 5 mg Metoprolol Succinate (Toprol Xl -) 25 mg PO DAILY [facility] Last Admin: 09/22/16 09:56 Dose: 25 mg Mupirocin (Bactroban 2% Cream -) 1 applic TP BID [facility] Last Admin: 09/21/16 22:55 Dose: 1 applic Nystatin (Mycostatin Cream -) 3 applic TP DAILY [facility] Last Admin: 09/20/16 09:54 Dose: 3 applic Nystatin (Nystatin Oral Suspension -) 500,000 units PO Q6HPO [facility] Last Admin: 09/22/16 06:27 Dose: 500,000 units Oxycodone HCl (Roxicodone -) 5 mg PO Q6H PRN PRN Reason: PAIN Last Admin: 09/19/16 09:27 Dose: 5 mg Polyethylene Glycol (Miralax (For Daily Use) -) 17 gm PO BID [facility] Last Admin: 09/22/16 10:11 Dose: 17 gm Senna (Senna -) 2 tab PO HS [facility] Last Admin: 09/21/16 22:59 Dose: 2 tab Simethicone (Mylicon -) 80 mg PO QID [facility] Last Admin: 09/22/16 09:56 Dose: 80 mg Torsemide (Demadex -) 40 mg PO DAILY [facility] Last Admin: 09/22/16 09:55 Dose: 40 mg Vital Signs - 24 hr 09/21/16 09/21/16 09/21/16 17:00 21:00 22:00 Temperature 98.0 F 97.4 F L Pulse Rate 81 86 Respiratory 18 20 20 Rate Blood Pressure 134/62 120/40 O2 Sat by Pulse 96 Oximetry (%) 09/22/16 09/22/16 09/22/16 00:20 02:00 04:21 Temperature 97.8 F Pulse Rate 82 Respiratory 20 Rate Blood Pressure 136/63 O2 Sat by Pulse 95 96 Oximetry (%) 09/22/16 09/22/16 09/22/16 06:00 09:00 10:00 Temperature 98.5 F 98.5 F Pulse Rate 77 71 Respiratory 20 20 20 Rate Blood Pressure 111/52 117/62 O2 Sat by Pulse 96 Oximetry (%) 09/22/16 15:16 Temperature 98.4 F Pulse Rate 67 Respiratory 20 Rate Blood Pressure 122/40 O2 Sat by Pulse Oximetry (%) Intake & Output 09/20/16 09/21/16 09/22/16 09/23/16 07:59 07:59 07:59 07:59 Intake Total 2798 2368 1290 360 Output Total 550 450 500 150 Balance 2248 1918 790 210 Weight 305 lb 309 lb 12.8 oz NAD, obese, jvd tds RRR nl s1, s2 2/6 murmur at sternal border and apex scattered rhonchi bl, poor effort + bs soft obese edematous nt +distension diminished distal pulses. s/p lt bka tense le edema erythema/venous stasis changes/skin excoriations and peau d' orange changes of LE skin new bulla formation aaox3 no carotid bruit no jaundice diaphoresis CBC, BMP 09/22/16 05:40 09/22/16 05:40 Laboratory Tests 09/22/16 05:40 Magnesium 2.6 H Total Bilirubin 0.5 AST 87 H D ALT 75 D Alkaline Phosphatase 193 H Albumin 1.9 L EKG here: stach, 105 bpm. poor r wave progression. non- specific tw changes, no sig change from prior tele: sr, pvc Echo 07/01/2016: Mild decr EF. paradoxical septal motion with mild HK of anteroseptum. RV not seen. 1+ mr/tr. mild (although MG only 12 mmHg). Echo 06/2015: mild-mod decr EF--global; nl RV; mild LAE; mild-mod MR/TR; RVSP 30- 40; small peric effusion; + pleural eff cxr: tds a/p: 71 yo with h/o HFpEF, CAD s/p [place], HTN, HL, pHTN, MIRIAM, o2 dep't copd, CKD, IDDM, hypothyroid and chronic LLE cellulitis/lt foot gangrene s/p L BKA, here with n/ v. intermediate troponin elevation/CAD -has previously refused stress tests. h/o prior NSTEMI x 2 (2012, 2014) in setting of demand (sepsis/anemia). Con't JUAN ANTONIO, but current elevation likely in setting of demand. -cath previously deferred due to: pt preference; hi risk of vascular complications (obese habitus), hi risk of BERNARDINO, and h/o recurrent anemia, possible occult GIB -currently without anginal sx's. EKG unchanged. Con't statin, BB, asa. imdur held for hypotension. -MATEO deferred previously due to labile creat's--no change; chronic foot wound, gangrene, now s/p bka 07/03/16: - per pmd/vascular chronic HFpEF/pulm HTN/venous ins'y/acute on chronic hypoxic and hypercapneic resp failure: - mild systolic dysfunction, presumed RV dysfunction. - pt currently on IVF with fever/infection. holding diuresis for now. Patient with chronic third spacing and total body volume overload, but intermittently with vascular depletion. - 09/21: IVF stopped today per renal, diuresis per renal. - 09/22: bun improved after stopping IVF yesterday. starting torsemide per renal. - Abdomen tense and distended, abd u/s --> no ascites PSVT: -likely brief run of ATach on prior tele, no recurrence -con't bb as bp tolerates VTach: -17 beat run of NSVT on prior tele (previous admit), no recurrence -K/Mag repletion prn -con't bb as bp tolerates CKD - cr above baseline, no sig improvement with ivfs/holding diuretics. stopped IVF 09/21. starting torsemide today 09/22. - renal following MIRIAM - on bipap qhs. anemia: -chronic, baseline runs 8s-9s; -freq acute drops/PRBCs in past; currently above baseline. HTN: -controlled. monitor for hypotension in setting of infection - con't home bp meds, as bp tolerates. imdur held for hypotension.
[2016-09-22] MEDS: MUPIROCIN CA 2% TOPICAL CREAM 15 GM TUBE TP SCH (22:07)
[2016-09-22] MEDS: ATORVASTATIN CA 20 MG TABLET (FP) PO SCH (22:11)
[2016-09-22] MEDS: SENNOSIDES 8.6MG TABLET (FP) PO SCH (22:11)
[2016-09-22] MEDS: EPOETIN ALFA 10,000 UNIT/1 ML VIAL SQ SCH (23:08)
[2016-09-23] MEDS: ALBUTEROL SO4 0.083% IH SOL 2.5 MG/3 ML VIAL.NEB. NEB SCH ×5 (01:02→23:02)
[2016-09-23 06:06] LABS: SERUM IRON 30 ug/dL (27-139); TOTAL IRON BINDING CAPACITY 149 ug/dL (250-450); UIBC 119 ug/dL (118-369)
[2016-09-23] MEDS: METOCLOPRAMIDE HCL 10 MG TABLET (FP) PO SCH ×6 (06:50→23:03)
[2016-09-23] MEDS: NYSTATIN 500,000 UNITS/5 ML SUSPENSION PO SCH ×4 (06:51→17:55)
[2016-09-23] MEDS: LEVOTHYROXINE NA 50 MCG TABLET (FP) PO SCH (06:51)
[2016-09-23] MEDS: INSULIN DETEMIR 100 UNITS/ML MDV SQ SCH (06:51)
[2016-09-23] MEDS: INSULIN SLIDING SCALE (NOVOLOG) 1 VIAL SQ SCH ×4 (06:51→23:01)
[2016-09-23 08:04] LABS: BASOPHIL 0.6 % (0-2.0); EOSINOPHIL 3.8 % (0-4.5); MCH 29.8 pg (25.7-33.7); MCHC 31.6 g/dl (32.0-36.0); MEAN CELL VOLUME 94.4 fl (80-96); NEUTROPHILS 77.8 % (42.8-82.8); PLATELET COUNT 167 K/MM3 (134-434); RDW 16.4 % (11.6-15.6); WHITE BLOOD COUNT 8.6 K/mm3 (4.0-10.0)
[2016-09-23 08:38] LABS: CALCIUM 8.7 mg/dL (8.5-10.1); MAGNESIUM 2.7 mg/dL (1.8-2.4)
[2016-09-23 08:41] LABS: BILIRUBIN,TOTAL 0.7 mg/dL (0.2-1.0); COCKROFT - GAULT 53.7115; CREATININE 2.1 mg/dL (0.55-1.02); PHOSPHOROUS 4.5 mg/dL (2.5-4.9); TOT PROT 6.5 g/dl (6.4-8.2)
[2016-09-23] MEDS ORDERED: PT OWN MED DRAWER 7, Y5N ONE (09:26)
[2016-09-23] MEDS: CALCIUM ACETATE 667 MG CAPSULE (FP) PO SCH ×4 (09:47→17:54)
[2016-09-23] MEDS: TORSEMIDE 20 MG TABLET (FP) PO SCH (09:47)
[2016-09-23] MEDS: GABAPENTIN 300 MG CAPSULE (FP) PO SCH ×5 (09:47→23:02)
[2016-09-23] MEDS: DOCUSATE SODIUM 100 MG CAPSULE (FP) PO SCH (09:47)
[2016-09-23] MEDS: CYANOCOBALAMIN 1,000 MCG TABLET (FP) PO SCH (09:48)
[2016-09-23] MEDS: FLUTICASONE PROP 0.05% 16 GM NASAL SPRAY NS SCH (09:48)
[2016-09-23] MEDS: MUPIROCIN CA 2% TOPICAL CREAM 15 GM TUBE TP SCH ×2 (09:48→23:01)
[2016-09-23] MEDS: LORATADINE 10 MG TABLET PO SCH (09:48)
[2016-09-23] MEDS: FOLIC ACID 1 MG TABLET (FP) PO SCH (09:48)
[2016-09-23] MEDS: SIMETHICONE 80 MG TAB.CHEW (FP) PO SCH ×5 (09:48→23:02)
[2016-09-23] MEDS: METOPROLOL SUCCINATE 25 MG TAB.SR.24H (FP) PO SCH (09:48)
[2016-09-23] MEDS: ASPIRIN COATED 81 MG TABLET.EC PO SCH (09:48)
[2016-09-23] MEDS: HEPARIN NA (PORCINE) 5,000 UNITS/ML 1ML VIAL SQ SCH ×2 (09:49→23:02)
[2016-09-23] MEDS: NYSTATIN 100,000 UNIT/GM TOPICAL CREAM 15 GM TUBE TP SCH (09:49)
[2016-09-23] MEDS: POLYETHYLENE GLYCOL 3350 119 GM BTL PO SCH ×2 (09:49→23:02)
[2016-09-23] MEDS: CEFTRIAXONE 50 ML IVPB SCH (09:53)
--- NOTE | 2016-09-23 09:53 | PN ---
Progress Note (short form) - Note Progress Note: Renal Follow up for CRISTELA on CKD Pt seen and examined at the bedside no acute complaints denies sob or chest pain no pain in LE restarted torsemide yesterday UO 450 yesterday Vital Signs Temperature 97.1 F L 09/23/16 06:00 Pulse Rate 74 09/23/16 06:00 Respiratory Rate 20 09/23/16 06:00 Blood Pressure 122/50 09/23/16 06:00 O2 Sat by Pulse Oximetry (%) 96 09/23/16 01:51 Intake & Output 09/20/16 09/21/16 09/22/16 09/23/16 23:59 23:59 23:59 23:59 Intake Total 2736 2230 900 Output Total 350 500 450 Balance 2386 1730 450 Weight 305 lb 309 lb 12.8 oz Gen: NAD, awake and alert, on BIPAP HEENT: NC/AT, No JVD CVS: RRR, No M/R Lungs: Dec BS at the lung bases Abd: soft NT/ND Ext: 2+ lymphedema, weeping edema right LE Neuro:AAOx3, no focal defects CBC, BMP 09/23/16 05:40 09/23/16 05:40 Current Medications Acetaminophen (Tylenol -) 650 mg PO DAILY PRN PRN Reason: PAIN LEVEL 6-10 Last Admin: 09/20/16 06:13 Dose: 650 mg Albuterol Sulfate (Ventolin 0.083% Nebulizer Soln -) 1 amp NEB Q6HPO [facility] Last Admin: 09/23/16 06:05 Dose: 1 amp Aspirin (Ecotrin -) 81 mg PO DAILY [facility] Last Admin: 09/22/16 09:54 Dose: 81 mg Atorvastatin Calcium (Lipitor -) 20 mg PO HS [facility] Last Admin: 09/22/16 22:11 Dose: 20 mg Calcium Acetate (Phoslo -) 667 mg PO TIDCM [facility] Last Admin: 09/22/16 17:33 Dose: 667 mg Cyanocobalamin (Vitamin B12 -) 1,000 mcg PO DAILY [facility] Last Admin: 09/22/16 09:56 Dose: 1,000 mcg Docusate Sodium (Colace -) 200 mg PO DAILY [facility] Last Admin: 09/22/16 09:57 Dose: 200 mg Epoetin Dawood (Procrit -) 10,000 unit SQ Rice@10 [facility] Last Admin: 09/22/16 23:08 Dose: 10,000 unit Fluticasone Propionate (Flonase -) 1 spray NS DAILY [facility] Last Admin: 09/20/16 09:54 Dose: 1 puff Folic Acid (Folic Acid -) 1 mg PO DAILY [facility] Last Admin: 09/22/16 09:58 Dose: 1 mg Gabapentin (Neurontin -) 300 mg PO QID [facility] Last Admin: 09/22/16 22:10 Dose: 300 mg Heparin Sodium (Porcine) (Heparin -) 5,000 unit SQ BID [facility] Last Admin: 09/22/16 22:10 Dose: 5,000 unit Ceftriaxone Sodium (Rocephin 1gm Ivpb (Pre-Docked)) 50 mls @ 100 mls/hr IVPB DAILY [facility] Last Admin: 09/22/16 09:58 Dose: 100 mls/hr Insulin Aspart (Novolog Vial Sliding Scale -) 1 vial SQ [facility] PRN Reason: Protocol Last Admin: 09/23/16 06:51 Dose: Not Given Insulin Detemir (Levemir Vial) 10 units SQ ACBK [facility] Last Admin: 09/23/16 06:51 Dose: 10 units Levothyroxine Sodium (Synthroid -) 50 mcg PO ACBK [facility] Last Admin: 09/23/16 06:51 Dose: 50 mcg Loratadine (Claritin -) 10 mg PO DAILY [facility] Last Admin: 09/22/16 09:57 Dose: 10 mg Metoclopramide HCl (Reglan -) 5 mg PO ACHS [facility] Last Admin: 09/23/16 06:50 Dose: 5 mg Metoprolol Succinate (Toprol Xl -) 25 mg PO DAILY [facility] Last Admin: 09/22/16 09:56 Dose: 25 mg Mupirocin (Bactroban 2% Cream -) 1 applic TP BID [facility] Last Admin: 09/22/16 22:07 Dose: 1 applic Nystatin (Mycostatin Cream -) 3 applic TP DAILY [facility] Last Admin: 09/20/16 09:54 Dose: 3 applic Nystatin (Nystatin Oral Suspension -) 500,000 units PO Q6HPO [facility] Last Admin: 09/23/16 06:51 Dose: 500,000 units Oxycodone HCl (Roxicodone -) 5 mg PO Q6H PRN PRN Reason: PAIN Last Admin: 09/19/16 09:27 Dose: 5 mg Polyethylene Glycol (Miralax (For Daily Use) -) 17 gm PO BID [facility] Last Admin: 09/22/16 22:07 Dose: 17 gm Senna (Senna -) 2 tab PO HS [facility] Last Admin: 09/22/16 22:11 Dose: 2 tab Simethicone (Mylicon -) 80 mg PO QID [facility] Last Admin: 09/22/16 22:08 Dose: 80 mg Torsemide (Demadex -) 40 mg PO DAILY [facility] Last Admin: 09/22/16 09:55 Dose: 40 mg A/P 71 year old woman with PMhx of CKD stage 3 w/o significant proteinuria, CHF, COPD, PVD, Chronic LE lymphedema, IDDM, CAD who presented wit fever with BUN/Cr of 85/1.5 and K of 5..5. #CRISTELA on CKD Renal function stable on Torsemide UO is only 450, monitor output today, may need to increase diuretics is good response is not seen trend BUN/Cr no indication for [employer] #Hyperkalemia in setting of renal insufficiency continue Low K diet and diuretics #Fever/UTI continue Abx as per ID #Normocytic Anemia iron saturation is 20% Ferritin is 750 (high as acute phase reactant) will give IV Venofer x 1 continue Epogen 3x weekly no indication for transfusion Thank you Lambert Mcnamara DO
--- NOTE | 2016-09-23 10:57 | PN ---
Progress Note, Physician Chief Complaint: in bed no new c/o - Current Medication List Current Medications: Active Medications Acetaminophen (Tylenol -) 650 mg PO DAILY PRN PRN Reason: PAIN LEVEL 6-10 Last Admin: 09/20/16 06:13 Dose: 650 mg Albuterol Sulfate (Ventolin 0.083% Nebulizer Soln -) 1 amp NEB Q6HPO [facility] Last Admin: 09/23/16 06:05 Dose: 1 amp Aspirin (Ecotrin -) 81 mg PO DAILY [facility] Last Admin: 09/23/16 09:48 Dose: 81 mg Atorvastatin Calcium (Lipitor -) 20 mg PO HS [facility] Last Admin: 09/22/16 22:11 Dose: 20 mg Calcium Acetate (Phoslo -) 667 mg PO TIDCM [facility] Last Admin: 09/23/16 09:47 Dose: 667 mg Cyanocobalamin (Vitamin B12 -) 1,000 mcg PO DAILY [facility] Last Admin: 09/23/16 09:48 Dose: 1,000 mcg Docusate Sodium (Colace -) 200 mg PO DAILY [facility] Last Admin: 09/23/16 09:47 Dose: 200 mg Epoetin Dawood (Procrit -) 10,000 unit SQ Rice@10 [facility] Last Admin: 09/22/16 23:08 Dose: 10,000 unit Fluticasone Propionate (Flonase -) 1 spray NS DAILY [facility] Last Admin: 09/23/16 09:48 Dose: 1 puff Folic Acid (Folic Acid -) 1 mg PO DAILY [facility] Last Admin: 09/23/16 09:48 Dose: 1 mg Gabapentin (Neurontin -) 300 mg PO QID [facility] Last Admin: 09/23/16 09:48 Dose: 300 mg Heparin Sodium (Porcine) (Heparin -) 5,000 unit SQ BID [facility] Last Admin: 09/23/16 09:49 Dose: 5,000 unit Ceftriaxone Sodium (Rocephin 1gm Ivpb (Pre-Docked)) 50 mls @ 100 mls/hr IVPB DAILY [facility] Last Admin: 09/23/16 09:53 Dose: 100 mls/hr Iron Sucrose 100 mg/ Sodium (Chloride) 100 mls @ 200 mls/hr IVPB ONCE ONE Stop: 09/23/16 11:29 Insulin Aspart (Novolog Vial Sliding Scale -) 1 vial SQ ACHS [facility] PRN Reason: Protocol Last Admin: 09/23/16 06:51 Dose: Not Given Insulin Detemir (Levemir Vial) 10 units SQ ACBK [facility] Last Admin: 09/23/16 06:51 Dose: 10 units Levothyroxine Sodium (Synthroid -) 50 mcg PO ACBK [facility] Last Admin: 09/23/16 06:51 Dose: 50 mcg Loratadine (Claritin -) 10 mg PO DAILY [facility] Last Admin: 09/23/16 09:48 Dose: 10 mg Metoclopramide HCl (Reglan -) 5 mg PO ACHS [facility] Last Admin: 09/23/16 09:49 Dose: 5 mg Metoprolol Succinate (Toprol Xl -) 25 mg PO DAILY [facility] Last Admin: 09/23/16 09:48 Dose: 25 mg Mupirocin (Bactroban 2% Cream -) 1 applic TP BID [facility] Last Admin: 09/23/16 09:48 Dose: 1 applic Nystatin (Mycostatin Cream -) 3 applic TP DAILY [facility] Last Admin: 09/23/16 09:49 Dose: 3 applic Nystatin (Nystatin Oral Suspension -) 500,000 units PO Q6HPO [facility] Last Admin: 09/23/16 06:51 Dose: 500,000 units Oxycodone HCl (Roxicodone -) 5 mg PO Q6H PRN PRN Reason: PAIN Last Admin: 09/19/16 09:27 Dose: 5 mg Polyethylene Glycol (Miralax (For Daily Use) -) 17 gm PO BID [facility] Last Admin: 09/23/16 09:49 Dose: 17 gm Senna (Senna -) 2 tab PO HS [facility] Last Admin: 09/22/16 22:11 Dose: 2 tab Simethicone (Mylicon -) 80 mg PO QID [facility] Last Admin: 09/23/16 09:48 Dose: 80 mg Torsemide (Demadex -) 40 mg PO DAILY [facility] Last Admin: 09/23/16 09:47 Dose: 40 mg - Objective Vital Signs: Vital Signs Temperature 97.1 F L 09/23/16 06:00 Pulse Rate 74 09/23/16 06:00 Respiratory Rate 20 09/23/16 06:00 Blood Pressure 122/50 09/23/16 06:00 O2 Sat by Pulse Oximetry (%) 96 09/23/16 01:51 Constitutional: Yes: No Distress Eyes: Yes: Conjunctiva Clear HENT: Yes: Atraumatic Neck: Yes: Supple Cardiovascular: Yes: Regular Rate and Rhythm Respiratory: Yes: Diminished Gastrointestinal: Yes: Soft, Abdomen, Obese Extremities: Yes: Erythema (RLE) Edema: Yes (RLE) Integumentary: Yes: Rash Neurological: Yes: Alert Psychiatric: Yes: Alert. No: Agitated Labs: CBC, BMP 09/23/16 05:40 09/23/16 05:40 INR, PTT INR 1.22 (0.82-1.09) H 09/16/16 10:53 - ....Imaging MRI: Report Reviewed Assessment/Plan The patient is a 71 year old female brought via EMS from [facility], with a significant past medical history of Hypothyroidism, Diabetes, HTN, CHF, NM x2, (on home O2, 2L), left BKA, anemia, essential tremors, CAD, GERD, CKD and obesity, admitted with UTI, RLE cellulitis, neck and R axilla fungic rash improved; sepsis, low BP/ r/o septic shock; R foot cold r/o ischemia - surgery f /u ARF oliguric - renal f/u; broad spectrum ATB per ID CHF - cardiology f/u f/u labs DVT falls decubs and aspiration PFX HOB BGM, DM control; prognosis guarded d/w pt and staff
[2016-09-23] MEDS ORDERED: IRON SUCROSE INJECTION 100 MG in SODIUM CHLORIDE 95 ML IVPB ONE (11:00)
--- NOTE | 2016-09-23 11:10 | PN ---
Progress Note, Physician History of Present Illness: Awake, responsive C/O R LE pain No c/o fever/ chills WBC improved- now normal Thrombocytopenia resolved Serum Cr stable - Current Medication List Current Medications: Active Medications Acetaminophen (Tylenol -) 650 mg PO DAILY PRN PRN Reason: PAIN LEVEL 6-10 Last Admin: 09/20/16 06:13 Dose: 650 mg Albuterol Sulfate (Ventolin 0.083% Nebulizer Soln -) 1 amp NEB Q6HPO [facility] Last Admin: 09/23/16 06:05 Dose: 1 amp Aspirin (Ecotrin -) 81 mg PO DAILY [facility] Last Admin: 09/23/16 09:48 Dose: 81 mg Atorvastatin Calcium (Lipitor -) 20 mg PO HS [facility] Last Admin: 09/22/16 22:11 Dose: 20 mg Calcium Acetate (Phoslo -) 667 mg PO TIDCM [facility] Last Admin: 09/23/16 09:47 Dose: 667 mg Cyanocobalamin (Vitamin B12 -) 1,000 mcg PO DAILY [facility] Last Admin: 09/23/16 09:48 Dose: 1,000 mcg Docusate Sodium (Colace -) 200 mg PO DAILY [facility] Last Admin: 09/23/16 09:47 Dose: 200 mg Epoetin Dawood (Procrit -) 10,000 unit SQ Rice@10 [facility] Last Admin: 09/22/16 23:08 Dose: 10,000 unit Fluticasone Propionate (Flonase -) 1 spray NS DAILY [facility] Last Admin: 09/23/16 09:48 Dose: 1 puff Folic Acid (Folic Acid -) 1 mg PO DAILY [facility] Last Admin: 09/23/16 09:48 Dose: 1 mg Gabapentin (Neurontin -) 300 mg PO QID [facility] Last Admin: 09/23/16 09:48 Dose: 300 mg Heparin Sodium (Porcine) (Heparin -) 5,000 unit SQ BID [facility] Last Admin: 09/23/16 09:49 Dose: 5,000 unit Ceftriaxone Sodium (Rocephin 1gm Ivpb (Pre-Docked)) 50 mls @ 100 mls/hr IVPB DAILY [facility] Last Admin: 09/23/16 09:53 Dose: 100 mls/hr Iron Sucrose 100 mg/ Sodium (Chloride) 100 mls @ 200 mls/hr IVPB ONCE ONE Stop: 09/23/16 11:29 Insulin Aspart (Novolog Vial Sliding Scale -) 1 vial SQ [facility] PRN Reason: Protocol Last Admin: 09/23/16 06:51 Dose: Not Given Insulin Detemir (Levemir Vial) 10 units SQ ACBK [facility] Last Admin: 09/23/16 06:51 Dose: 10 units Levothyroxine Sodium (Synthroid -) 50 mcg PO ACBK [facility] Last Admin: 09/23/16 06:51 Dose: 50 mcg Loratadine (Claritin -) 10 mg PO DAILY [facility] Last Admin: 09/23/16 09:48 Dose: 10 mg Metoclopramide HCl (Reglan -) 5 mg PO [facility] Last Admin: 09/23/16 09:49 Dose: 5 mg Metoprolol Succinate (Toprol Xl -) 25 mg PO DAILY [facility] Last Admin: 09/23/16 09:48 Dose: 25 mg Mupirocin (Bactroban 2% Cream -) 1 applic TP BID [facility] Last Admin: 09/23/16 09:48 Dose: 1 applic Nystatin (Mycostatin Cream -) 3 applic TP DAILY [facility] Last Admin: 09/23/16 09:49 Dose: 3 applic Nystatin (Nystatin Oral Suspension -) 500,000 units PO Q6HPO [facility] Last Admin: 09/23/16 06:51 Dose: 500,000 units Oxycodone HCl (Roxicodone -) 5 mg PO Q6H PRN PRN Reason: PAIN Last Admin: 09/19/16 09:27 Dose: 5 mg Polyethylene Glycol (Miralax (For Daily Use) -) 17 gm PO BID [facility] Last Admin: 09/23/16 09:49 Dose: 17 gm Senna (Senna -) 2 tab PO HS [facility] Last Admin: 09/22/16 22:11 Dose: 2 tab Simethicone (Mylicon -) 80 mg PO QID [facility] Last Admin: 09/23/16 09:48 Dose: 80 mg Torsemide (Demadex -) 40 mg PO DAILY [facility] Last Admin: 09/23/16 09:47 Dose: 40 mg - Objective Vital Signs: Vital Signs Temperature 97.1 F L 09/23/16 06:00 Pulse Rate 74 09/23/16 06:00 Respiratory Rate 20 09/23/16 06:00 Blood Pressure 122/50 09/23/16 06:00 O2 Sat by Pulse Oximetry (%) 96 09/23/16 01:51 Constitutional: Yes: Obese Cardiovascular: Yes: Regular Rate and Rhythm, S1, S2 Respiratory: Yes: CTA Bilaterally Gastrointestinal: Yes: Normal Bowel Sounds, Soft, Abdomen, Obese, Other (+ faint erythema R lateral abdo wall). No: Tenderness Extremities: Yes: Other (+ R LE erythema/ warmth, thigh + distal LE + superficial ulcer, dorsum of foot) Labs: CBC, BMP 09/23/16 05:40 09/23/16 05:40 INR, PTT INR 1.22 (0.82-1.09) H 09/16/16 10:53 Assessment/Plan UTI /Possible sepsis secondary to UTI- Morganella leukocytosis- resolved Thrombocytopenia-resolved Azotemia cellulitis R LE, ? R abdominal wall Continue Ceftriaxone 1gm IVPB q24h Redose Vancomycin 1gm x1
[2016-09-23] MEDS ORDERED: VANCOMYCIN 1 GRAM (PRE-DOCKED) 250 ML IVPB ONE (12:00)
--- NOTE | 2016-09-23 18:49 | PN ---
Progress Note (short form) - Note Progress Note: CC: trop elevation S: no cp, palps, sob, dizziness. Current Medications Acetaminophen (Tylenol -) 650 mg PO DAILY PRN PRN Reason: PAIN LEVEL 6-10 Last Admin: 09/20/16 06:13 Dose: 650 mg Albuterol Sulfate (Ventolin 0.083% Nebulizer Soln -) 1 amp NEB Q6HPO [facility] Last Admin: 09/23/16 17:21 Dose: 1 amp Aspirin (Ecotrin -) 81 mg PO DAILY [facility] Last Admin: 09/23/16 09:48 Dose: 81 mg Atorvastatin Calcium (Lipitor -) 20 mg PO HS [facility] Last Admin: 09/22/16 22:11 Dose: 20 mg Calcium Acetate (Phoslo -) 667 mg PO TIDCM [facility] Last Admin: 09/23/16 17:54 Dose: 667 mg Cyanocobalamin (Vitamin B12 -) 1,000 mcg PO DAILY [facility] Last Admin: 09/23/16 09:48 Dose: 1,000 mcg Docusate Sodium (Colace -) 200 mg PO DAILY [facility] Last Admin: 09/23/16 09:47 Dose: 200 mg Epoetin Dawood (Procrit -) 10,000 unit SQ Rice@10 [facility] Last Admin: 09/22/16 23:08 Dose: 10,000 unit Fluticasone Propionate (Flonase -) 1 spray NS DAILY [facility] Last Admin: 09/23/16 09:48 Dose: 1 puff Folic Acid (Folic Acid -) 1 mg PO DAILY [facility] Last Admin: 09/23/16 09:48 Dose: 1 mg Gabapentin (Neurontin -) 300 mg PO QID [facility] Last Admin: 09/23/16 17:54 Dose: 300 mg Heparin Sodium (Porcine) (Heparin -) 5,000 unit SQ BID [facility] Last Admin: 09/23/16 09:49 Dose: 5,000 unit Ceftriaxone Sodium (Rocephin 1gm Ivpb (Pre-Docked)) 50 mls @ 100 mls/hr IVPB DAILY [facility] Last Admin: 09/23/16 09:53 Dose: 100 mls/hr Insulin Aspart (Novolog Vial Sliding Scale -) 1 vial SQ ACHS [facility] PRN Reason: Protocol Last Admin: 09/23/16 17:54 Dose: Not Given Insulin Detemir (Levemir Vial) 10 units SQ ACBK [facility] Last Admin: 09/23/16 06:51 Dose: 10 units Levothyroxine Sodium (Synthroid -) 50 mcg PO ACBK [facility] Last Admin: 09/23/16 06:51 Dose: 50 mcg Loratadine (Claritin -) 10 mg PO DAILY [facility] Last Admin: 09/23/16 09:48 Dose: 10 mg Metoclopramide HCl (Reglan -) 5 mg PO ACHS [facility] Last Admin: 09/23/16 17:49 Dose: 5 mg Metoprolol Succinate (Toprol Xl -) 25 mg PO DAILY [facility] Last Admin: 09/23/16 09:48 Dose: 25 mg Mupirocin (Bactroban 2% Cream -) 1 applic TP BID [facility] Last Admin: 09/23/16 09:48 Dose: 1 applic Nystatin (Mycostatin Cream -) 3 applic TP DAILY [facility] Last Admin: 09/23/16 09:49 Dose: 3 applic Nystatin (Nystatin Oral Suspension -) 500,000 units PO Q6HPO [facility] Last Admin: 09/23/16 17:55 Dose: 500,000 units Oxycodone HCl (Roxicodone -) 5 mg PO Q6H PRN PRN Reason: PAIN Last Admin: 09/19/16 09:27 Dose: 5 mg Polyethylene Glycol (Miralax (For Daily Use) -) 17 gm PO BID [facility] Last Admin: 09/23/16 09:49 Dose: 17 gm Senna (Senna -) 2 tab PO HS [facility] Last Admin: 09/22/16 22:11 Dose: 2 tab Simethicone (Mylicon -) 80 mg PO QID [facility] Last Admin: 09/23/16 17:49 Dose: 80 mg Torsemide (Demadex -) 40 mg PO DAILY [facility] Last Admin: 09/23/16 09:47 Dose: 40 mg Vital Signs - 24 hr 09/22/16 09/22/16 09/23/16 21:00 22:00 01:51 Temperature 97.0 F L Pulse Rate 84 Respiratory 20 20 Rate Blood Pressure 118/45 O2 Sat by Pulse 96 96 Oximetry (%) 09/23/16 09/23/16 09/23/16 02:47 06:00 09:00 Temperature 97.6 F 97.1 F L Pulse Rate 75 74 Respiratory 20 20 20 Rate Blood Pressure 108/52 122/50 O2 Sat by Pulse 96 Oximetry (%) 09/23/16 09/23/16 09/23/16 10:00 16:18 18:00 Temperature 97.2 F L 98.3 F 97.3 F L Pulse Rate 72 80 81 Respiratory 20 20 20 Rate Blood Pressure 109/54 120/55 113/53 O2 Sat by Pulse Oximetry (%) Intake & Output 09/21/16 09/22/16 09/23/16 09/24/16 07:59 07:59 07:59 07:59 Intake Total 2368 1290 840 970 Output Total 450 500 350 Balance 1918 790 490 970 Weight 305 lb 309 lb 12.8 oz NAD, obese, jvd tds RRR nl s1, s2 2/6 murmur at sternal border and apex scattered rhonchi bl, poor effort + bs soft obese edematous nt +distension diminished distal pulses. s/p lt bka tense le edema erythema/venous stasis changes/skin excoriations and bulla/peau d 'orange changes of LE skin aaox3 no carotid bruit no jaundice diaphoresis CBC, BMP 09/23/16 05:40 09/23/16 05:40 EKG here: stach, 105 bpm. poor r wave progression. non- specific tw changes, no sig change from prior tele: sr, pvc Echo 07/01/2016: Mild decr EF. paradoxical septal motion with mild HK of anteroseptum. RV not seen. 1+ mr/tr. mild (although MG only 12 mmHg). Echo 06/2015: mild-mod decr EF--global; nl RV; mild LAE; mild-mod MR/TR; RVSP 30- 40; small peric effusion; + pleural eff cxr: tds a/p: 71 yo with h/o HFpEF, CAD s/p CT, HTN, HL, pHTN, MIRIAM, o2 dep't copd, CKD, IDDM, hypothyroid and chronic LLE cellulitis/lt foot gangrene s/p L BKA, here with n/ v. intermediate troponin elevation/CAD -has previously refused stress tests. h/o prior NSTEMI x 2 (2012, 2014) in setting of demand (sepsis/anemia). Con't JUAN ANTONIO, but current elevation likely in setting of demand. -cath previously deferred due to: pt preference; hi risk of vascular complications (obese habitus), hi risk of BERNARDINO, and h/o recurrent anemia, possible occult GIB -currently without anginal sx's. EKG unchanged. Con't statin, BB, asa. imdur held for hypotension. -MATEO deferred previously due to labile creat's--no change; chronic foot wound, gangrene, now s/p bka 07/03/16: - per pmd/vascular chronic HFpEF/pulm HTN/venous ins'y/acute on chronic hypoxic and hypercapneic resp failure: - mild systolic dysfunction, presumed RV dysfunction. - pt currently on IVF with fever/infection. holding diuresis for now. Patient with chronic third spacing and total body volume overload, but intermittently with vascular depletion. - 09/21: IVF stopped today per renal, diuresis per renal. - 09/22: bun improved after stopping IVF yesterday. starting torsemide per renal. - 09/23: slight improvement in bmp on torsemide. diuretic management per renal. - Abdomen tense and distended, abd u/s --> no ascites PSVT: -likely brief run of ATach on prior tele , no recurrence -con't bb as bp tolerates VTach: -17 beat run of NSVT on prior tele (previous admit), no recurrence -K/Mag repletion prn -con't bb as bp tolerates CKD - cr above baseline, no sig improvement with ivfs/holding diuretics. stopped IVF 09/21. started torsemide today 09/22. - renal following MIRIAM - on bipap qhs. anemia: -chronic, baseline runs 8s-9s; -freq acute drops/PRBCs in past; currently above baseline. HTN: -controlled. monitor for hypotension in setting of infection - con't home bp meds, as bp tolerates. imdur held for hypotension.
[2016-09-23] MEDS: ATORVASTATIN CA 20 MG TABLET (FP) PO SCH (23:02)
[2016-09-23] MEDS: SENNOSIDES 8.6MG TABLET (FP) PO SCH (23:03)
[2016-09-24] MEDS: NYSTATIN 500,000 UNITS/5 ML SUSPENSION PO SCH ×4 (01:00→18:05)
[2016-09-24] MEDS: ALBUTEROL SO4 0.083% IH SOL 2.5 MG/3 ML VIAL.NEB. NEB SCH ×4 (05:58→23:35)
[2016-09-24] MEDS: INSULIN SLIDING SCALE (NOVOLOG) 1 VIAL SQ SCH ×4 (06:48→22:02)
[2016-09-24] MEDS: LEVOTHYROXINE NA 50 MCG TABLET (FP) PO SCH (06:48)
[2016-09-24] MEDS: METOCLOPRAMIDE HCL 10 MG TABLET (FP) PO SCH ×4 (06:48→22:15)
[2016-09-24] MEDS: INSULIN DETEMIR 100 UNITS/ML MDV SQ SCH (06:49)
[2016-09-24 07:38] LABS: MCH 29.6 pg (25.7-33.7); MCHC 31.2 g/dl (32.0-36.0); MEAN CELL VOLUME 94.7 fl (80-96); MEAN PLT VOLUME 8.7 fl (7.5-11.1); PLATELET COUNT 202 K/MM3 (134-434); RDW 16.4 % (11.6-15.6); WHITE BLOOD COUNT 9.5 K/mm3 (4.0-10.0)
[2016-09-24 07:58] LABS: ALBUMIN 2.1 g/dl (3.4-5.0); CALCIUM 8.6 mg/dL (8.5-10.1); COCKROFT - GAULT 50.3965; CREATININE 2.2 mg/dL (0.55-1.02); MAGNESIUM 2.7 mg/dL (1.8-2.4); PHOSPHOROUS 4.6 mg/dL (2.5-4.9)
[2016-09-24 08:00] LABS: BILIRUBIN,TOTAL 0.4 mg/dL (0.2-1.0); TOT PROT 6.6 g/dl (6.4-8.2)
[2016-09-24] MEDS: CEFTRIAXONE 50 ML IVPB SCH (09:49)
[2016-09-24] MEDS: TORSEMIDE 20 MG TABLET (FP) PO SCH (09:50)
[2016-09-24] MEDS: CALCIUM ACETATE 667 MG CAPSULE (FP) PO SCH ×3 (09:50→18:06)
[2016-09-24] MEDS: FOLIC ACID 1 MG TABLET (FP) PO SCH (09:50)
[2016-09-24] MEDS: SIMETHICONE 80 MG TAB.CHEW (FP) PO SCH ×4 (09:50→22:15)
[2016-09-24] MEDS: ASPIRIN COATED 81 MG TABLET.EC PO SCH (09:50)
[2016-09-24] MEDS: METOPROLOL SUCCINATE 25 MG TAB.SR.24H (FP) PO SCH (09:50)
[2016-09-24] MEDS: GABAPENTIN 300 MG CAPSULE (FP) PO SCH ×4 (09:51→22:15)
[2016-09-24] MEDS: CYANOCOBALAMIN 1,000 MCG TABLET (FP) PO SCH (09:51)
[2016-09-24] MEDS: DOCUSATE SODIUM 100 MG CAPSULE (FP) PO SCH (09:51)
[2016-09-24] MEDS: HEPARIN NA (PORCINE) 5,000 UNITS/ML 1ML VIAL SQ SCH ×2 (09:51→22:14)
[2016-09-24] MEDS: MUPIROCIN CA 2% TOPICAL CREAM 15 GM TUBE TP SCH ×2 (09:51→22:11)
[2016-09-24] MEDS: LORATADINE 10 MG TABLET PO SCH (09:51)
[2016-09-24] MEDS: FLUTICASONE PROP 0.05% 16 GM NASAL SPRAY NS SCH (09:52)
[2016-09-24] MEDS: NYSTATIN 100,000 UNIT/GM TOPICAL CREAM 15 GM TUBE TP SCH (09:52)
[2016-09-24] MEDS: POLYETHYLENE GLYCOL 3350 119 GM BTL PO SCH ×2 (09:52→22:14)
[2016-09-24] MEDS ORDERED: TORSEMIDE 20 MG TABLET (FP) PO ONE (09:59)
--- NOTE | 2016-09-24 10:58 | PN ---
Progress Note (short form) - Note Progress Note: CC: trop elevation S: no cp, palps, sob, dizziness. torsemide dose uptitrated today to 60 mg. Current Medications Acetaminophen (Tylenol -) 650 mg PO DAILY PRN PRN Reason: PAIN LEVEL 6-10 Last Admin: 09/20/16 06:13 Dose: 650 mg Albuterol Sulfate (Ventolin 0.083% Nebulizer Soln -) 1 amp NEB Q6HPO [facility] Last Admin: 09/24/16 05:58 Dose: 1 amp Aspirin (Ecotrin -) 81 mg PO DAILY [facility] Last Admin: 09/24/16 09:50 Dose: 81 mg Atorvastatin Calcium (Lipitor -) 20 mg PO HS [facility] Last Admin: 09/23/16 23:02 Dose: 20 mg Calcium Acetate (Phoslo -) 667 mg PO TIDCM [facility] Last Admin: 09/24/16 09:50 Dose: 667 mg Cyanocobalamin (Vitamin B12 -) 1,000 mcg PO DAILY [facility] Last Admin: 09/24/16 09:51 Dose: 1,000 mcg Docusate Sodium (Colace -) 200 mg PO DAILY [facility] Last Admin: 09/24/16 09:51 Dose: 200 mg Epoetin Dawood (Procrit -) 10,000 unit SQ Rice@10 [facility] Last Admin: 09/22/16 23:08 Dose: 10,000 unit Fluticasone Propionate (Flonase -) 1 spray NS DAILY [facility] Last Admin: 09/24/16 09:52 Dose: 1 puff Folic Acid (Folic Acid -) 1 mg PO DAILY [facility] Last Admin: 09/24/16 09:50 Dose: 1 mg Gabapentin (Neurontin -) 300 mg PO QID [facility] Last Admin: 09/24/16 09:51 Dose: 300 mg Heparin Sodium (Porcine) (Heparin -) 5,000 unit SQ BID [facility] Last Admin: 09/24/16 09:51 Dose: 5,000 unit Ceftriaxone Sodium (Rocephin 1gm Ivpb (Pre-Docked)) 50 mls @ 100 mls/hr IVPB DAILY [facility] Last Admin: 09/24/16 09:49 Dose: 100 mls/hr Insulin Aspart (Novolog Vial Sliding Scale -) 1 vial SQ ACHS [facility] PRN Reason: Protocol Last Admin: 09/24/16 06:48 Dose: Not Given Insulin Detemir (Levemir Vial) 10 units SQ ACBK [facility] Last Admin: 09/24/16 06:49 Dose: 10 units Levothyroxine Sodium (Synthroid -) 50 mcg PO ACBK [facility] Last Admin: 09/24/16 06:48 Dose: 50 mcg Loratadine (Claritin -) 10 mg PO DAILY [facility] Last Admin: 09/24/16 09:51 Dose: 10 mg Metoclopramide HCl (Reglan -) 5 mg PO ACHS [facility] Last Admin: 09/24/16 06:48 Dose: 5 mg Metoprolol Succinate (Toprol Xl -) 25 mg PO DAILY [facility] Last Admin: 09/24/16 09:50 Dose: 25 mg Mupirocin (Bactroban 2% Cream -) 1 applic TP BID [facility] Last Admin: 09/24/16 09:51 Dose: 1 applic Nystatin (Mycostatin Cream -) 3 applic TP DAILY [facility] Last Admin: 09/24/16 09:52 Dose: 3 applic Nystatin (Nystatin Oral Suspension -) 500,000 units PO Q6HPO [facility] Last Admin: 09/24/16 06:49 Dose: 500,000 units Oxycodone HCl (Roxicodone -) 5 mg PO Q6H PRN PRN Reason: PAIN Last Admin: 09/19/16 09:27 Dose: 5 mg Polyethylene Glycol (Miralax (For Daily Use) -) 17 gm PO BID [facility] Last Admin: 09/24/16 09:52 Dose: 17 gm Senna (Senna -) 2 tab PO HS [facility] Last Admin: 09/23/16 23:03 Dose: 2 tab Simethicone (Mylicon -) 80 mg PO QID [facility] Last Admin: 09/24/16 09:50 Dose: 80 mg Torsemide (Demadex -) 60 mg PO DAILY [facility] Vital Signs - 24 hr 09/23/16 09/23/16 09/23/16 16:18 18:00 21:00 Temperature 98.3 F 97.3 F L Pulse Rate 80 81 Respiratory 20 20 Rate Blood Pressure 120/55 113/53 O2 Sat by Pulse 94 L Oximetry (%) 09/23/16 09/24/16 09/24/16 22:00 02:15 06:00 Temperature 97.5 F L 98.2 F Pulse Rate 86 80 86 Respiratory 20 20 20 Rate Blood Pressure 124/60 135/53 130/66 O2 Sat by Pulse Oximetry (%) 09/24/16 09/24/16 09:00 10:00 Temperature 97.4 F L Pulse Rate 85 Respiratory 20 20 Rate Blood Pressure 137/66 O2 Sat by Pulse 95 Oximetry (%) Intake & Output 09/22/16 09/23/16 09/24/16 09/25/16 07:59 07:59 07:59 07:59 Intake Total 1290 840 970 Output Total 500 350 Balance 790 490 970 Weight 309 lb 12.8 oz 304 lb 8 oz 304 lb 8 oz NAD, obese, jvd tds RRR nl s1, s2 2/6 murmur at sternal border and apex scattered rhonchi bl, poor effort + bs soft obese edematous nt +distension diminished distal pulses. s/p lt bka tense le edema erythema/venous stasis changes/skin excoriations and bulla/peau d 'orange changes of LE/torso skin aaox3 no carotid bruit no jaundice diaphoresis CBC, BMP 09/24/16 05:35 09/24/16 05:35 Laboratory Tests 09/24/16 05:35 Magnesium 2.7 H Total Bilirubin 0.4 D AST 47 H D ALT 69 Alkaline Phosphatase 196 H Albumin 2.1 L EKG here: stach, 105 bpm. poor r wave progression. non- specific tw changes, no sig change from prior tele: sr, pvc, 1 nsvt Echo 07/01/2016: Mild decr EF. paradoxical septal motion with mild HK of anteroseptum. RV not seen. 1+ mr/tr. mild (although MG only 12 mmHg). Echo 06/2015: mild-mod decr EF--global; nl RV; mild LAE; mild-mod MR/TR; RVSP 30- 40; small peric effusion; + pleural eff cxr: tds a/p: 71 yo with h/o HFpEF, CAD s/p [place], HTN, HL, pHTN, MIRIAM, o2 dep't copd, CKD, IDDM, hypothyroid and chronic LLE cellulitis/lt foot gangrene s/p L BKA, here with n/ v. intermediate troponin elevation/CAD -has previously refused stress tests. h/o prior NSTEMI x 2 (2012, 2014) in setting of demand (sepsis/anemia). Con't JUAN ANTONIO, but current elevation likely in setting of demand. -cath previously deferred due to: pt preference; hi risk of vascular complications (obese habitus), hi risk of BERNARDINO, and h/o recurrent anemia, possible occult GIB -currently without anginal sx's. EKG unchanged. Con't statin, BB, asa. imdur held for hypotension. -MATEO deferred previously due to labile creat's--no change; chronic foot wound, gangrene, now s/p bka 07/03/16: - per pmd/vascular chronic HFpEF/pulm HTN/venous ins'y/acute on chronic hypoxic and hypercapneic resp failure: - mild systolic dysfunction, presumed RV dysfunction. - pt currently on IVF with fever/infection. holding diuresis for now. Patient with chronic third spacing and total body volume overload, but intermittently with vascular depletion. - 09/21: IVF stopped today per renal, diuresis per renal. - 09/22: bun improved after stopping IVF yesterday. starting torsemide per renal. - 09/23: slight improvement in bmp on torsemide. diuretic management per renal. - 09/24: ongoing improvement in bmp and lfts. torsemide dose uptitrated this morning to 60 mg/day. diuretic management per renal. - Abdomen tense and distended, abd u/s --> no ascites PSVT: -likely brief run of ATach on prior tele , no recurrence -con't bb as bp tolerates VTach: -17 beat run of NSVT on prior tele (previous admit), no recurrence -K/Mag repletion prn -con't bb as bp tolerates CKD - cr above baseline, no sig improvement with ivfs/holding diuretics. stopped IVF 09/21. started torsemide today 09/22. - renal following MIRIAM - on bipap qhs. anemia: -chronic, baseline runs 8s-9s; -freq acute drops/PRBCs in past; currently above baseline. HTN: -controlled. monitor for hypotension in setting of infection - con't home bp meds, as bp tolerates. imdur held for hypotension. (09/24 bp improving, if remains improved can consider resuming imdur tomorrow)
[2016-09-24 11:06] LABS: PLATELET ESTIMATE ADEQUATE (NORMAL)
--- NOTE | 2016-09-24 11:08 | PN ---
Progress Note, Physician Chief Complaint: more sleepy but arousable; afebrile higher BUN/creat - Current Medication List Current Medications: Active Medications Acetaminophen (Tylenol -) 650 mg PO DAILY PRN PRN Reason: PAIN LEVEL 6-10 Last Admin: 09/20/16 06:13 Dose: 650 mg Albuterol Sulfate (Ventolin 0.083% Nebulizer Soln -) 1 amp NEB Q6HPO [facility] Last Admin: 09/24/16 05:58 Dose: 1 amp Aspirin (Ecotrin -) 81 mg PO DAILY [facility] Last Admin: 09/24/16 09:50 Dose: 81 mg Atorvastatin Calcium (Lipitor -) 20 mg PO HS [facility] Last Admin: 09/23/16 23:02 Dose: 20 mg Calcium Acetate (Phoslo -) 667 mg PO TIDCM [facility] Last Admin: 09/24/16 09:50 Dose: 667 mg Cyanocobalamin (Vitamin B12 -) 1,000 mcg PO DAILY [facility] Last Admin: 09/24/16 09:51 Dose: 1,000 mcg Docusate Sodium (Colace -) 200 mg PO DAILY [facility] Last Admin: 09/24/16 09:51 Dose: 200 mg Epoetin Dawood (Procrit -) 10,000 unit SQ Rice@10 [facility] Last Admin: 09/22/16 23:08 Dose: 10,000 unit Fluticasone Propionate (Flonase -) 1 spray NS DAILY [facility] Last Admin: 09/24/16 09:52 Dose: 1 puff Folic Acid (Folic Acid -) 1 mg PO DAILY [facility] Last Admin: 09/24/16 09:50 Dose: 1 mg Gabapentin (Neurontin -) 300 mg PO QID [facility] Last Admin: 09/24/16 09:51 Dose: 300 mg Heparin Sodium (Porcine) (Heparin -) 5,000 unit SQ BID [facility] Last Admin: 09/24/16 09:51 Dose: 5,000 unit Ceftriaxone Sodium (Rocephin 1gm Ivpb (Pre-Docked)) 50 mls @ 100 mls/hr IVPB DAILY [facility] Last Admin: 09/24/16 09:49 Dose: 100 mls/hr Insulin Aspart (Novolog Vial Sliding Scale -) 1 vial SQ ACHS [facility] PRN Reason: Protocol Last Admin: 09/24/16 06:48 Dose: Not Given Insulin Detemir (Levemir Vial) 10 units SQ ACBK [facility] Last Admin: 09/24/16 06:49 Dose: 10 units Levothyroxine Sodium (Synthroid -) 50 mcg PO ACBK [facility] Last Admin: 09/24/16 06:48 Dose: 50 mcg Loratadine (Claritin -) 10 mg PO DAILY [facility] Last Admin: 09/24/16 09:51 Dose: 10 mg Metoclopramide HCl (Reglan -) 5 mg PO ACHS [facility] Last Admin: 09/24/16 06:48 Dose: 5 mg Metoprolol Succinate (Toprol Xl -) 25 mg PO DAILY [facility] Last Admin: 09/24/16 09:50 Dose: 25 mg Mupirocin (Bactroban 2% Cream -) 1 applic TP BID [facility] Last Admin: 09/24/16 09:51 Dose: 1 applic Nystatin (Mycostatin Cream -) 3 applic TP DAILY [facility] Last Admin: 09/24/16 09:52 Dose: 3 applic Nystatin (Nystatin Oral Suspension -) 500,000 units PO Q6HPO [facility] Last Admin: 09/24/16 06:49 Dose: 500,000 units Oxycodone HCl (Roxicodone -) 5 mg PO Q6H PRN PRN Reason: PAIN Last Admin: 09/19/16 09:27 Dose: 5 mg Polyethylene Glycol (Miralax (For Daily Use) -) 17 gm PO BID [facility] Last Admin: 09/24/16 09:52 Dose: 17 gm Senna (Senna -) 2 tab PO HS [facility] Last Admin: 09/23/16 23:03 Dose: 2 tab Simethicone (Mylicon -) 80 mg PO QID [facility] Last Admin: 09/24/16 09:50 Dose: 80 mg Torsemide (Demadex -) 60 mg PO DAILY [facility] - Objective Vital Signs: Vital Signs Temperature 97.4 F L 09/24/16 10:00 Pulse Rate 85 09/24/16 10:00 Respiratory Rate 20 09/24/16 10:00 Blood Pressure 137/66 09/24/16 10:00 O2 Sat by Pulse Oximetry (%) 95 09/24/16 09:00 Constitutional: Yes: No Distress, Calm Eyes: Yes: Conjunctiva Clear HENT: Yes: Atraumatic Neck: Yes: Supple Cardiovascular: Yes: Regular Rate and Rhythm Respiratory: Yes: CTA Bilaterally Gastrointestinal: Yes: Soft. No: Distention Musculoskeletal: No: Joint Stiffness, Joint Swelling Extremities: No: Cold, Cool Edema: Yes Integumentary: Yes: Rash Neurological: Yes: Alert. No: WNL (functional quadriplegia bedbound) Psychiatric: Yes: Alert. No: Agitated Labs: CBC, BMP 09/24/16 05:35 09/24/16 05:35 INR, PTT INR 1.22 (0.82-1.09) H 09/16/16 10:53 Assessment/Plan The patient is a 71 year old female brought via EMS from [facility], with a significant past medical history of Hypothyroidism, Diabetes, HTN, CHF, [place] x2, (on home O2, 2L), left BKA, anemia, essential tremors, CAD, GERD, CKD and obesity, admitted with UTI, RLE cellulitis, neck and R axilla fungic rash improved; sepsis, low BP/ r/o septic shock; R foot cold r/o ischemia - surgery f /u ARF oliguric - renal f/u; broad spectrum ATB per ID CHF - cardiology f/u f/u labs DVT falls decubs and aspiration PFX HOB BGM, DM control; prognosis guarded d/w pt and staff
--- NOTE | 2016-09-24 11:12 | PN ---
Progress Note (short form) - Note Progress Note: Renal Follow up for CRISTELA on CKD Pt seen and examined at the bedside no overnight events no acute complaints urine output w/o significant improvement Vital Signs Temperature 97.4 F L 09/24/16 10:00 Pulse Rate 85 09/24/16 10:00 Respiratory Rate 20 09/24/16 10:00 Blood Pressure 137/66 09/24/16 10:00 O2 Sat by Pulse Oximetry (%) 95 09/24/16 09:00 Intake & Output 09/21/16 09/22/16 09/23/16 09/24/16 23:59 23:59 23:59 23:59 Intake Total 2230 900 970 Output Total 500 450 Balance 1730 450 970 Weight 305 lb 309 lb 12.8 oz 304 lb 8 oz 304 lb 8 oz Gen: NAD, awake and alert CVS: RRR, No M/R Lungs: Dec BS at the lung bases Abd: soft NT/ND, Obese Ext: 2+ lymphedema, weeping edema right LE CBC, BMP 09/24/16 05:35 09/24/16 05:35 Current Medications Acetaminophen (Tylenol -) 650 mg PO DAILY PRN PRN Reason: PAIN LEVEL 6-10 Last Admin: 09/20/16 06:13 Dose: 650 mg Albuterol Sulfate (Ventolin 0.083% Nebulizer Soln -) 1 amp NEB Q6HPO [facility] Last Admin: 09/24/16 05:58 Dose: 1 amp Aspirin (Ecotrin -) 81 mg PO DAILY [facility] Last Admin: 09/24/16 09:50 Dose: 81 mg Atorvastatin Calcium (Lipitor -) 20 mg PO HS [facility] Last Admin: 09/23/16 23:02 Dose: 20 mg Calcium Acetate (Phoslo -) 667 mg PO TIDCM [facility] Last Admin: 09/24/16 09:50 Dose: 667 mg Cyanocobalamin (Vitamin B12 -) 1,000 mcg PO DAILY [facility] Last Admin: 09/24/16 09:51 Dose: 1,000 mcg Docusate Sodium (Colace -) 200 mg PO DAILY [facility] Last Admin: 09/24/16 09:51 Dose: 200 mg Epoetin Dawood (Procrit -) 10,000 unit SQ Rice@10 [facility] Last Admin: 09/22/16 23:08 Dose: 10,000 unit Fluticasone Propionate (Flonase -) 1 spray NS DAILY [facility] Last Admin: 09/24/16 09:52 Dose: 1 puff Folic Acid (Folic Acid -) 1 mg PO DAILY [facility] Last Admin: 09/24/16 09:50 Dose: 1 mg Gabapentin (Neurontin -) 300 mg PO QID [facility] Last Admin: 09/24/16 09:51 Dose: 300 mg Heparin Sodium (Porcine) (Heparin -) 5,000 unit SQ BID [facility] Last Admin: 09/24/16 09:51 Dose: 5,000 unit Ceftriaxone Sodium (Rocephin 1gm Ivpb (Pre-Docked)) 50 mls @ 100 mls/hr IVPB DAILY [facility] Last Admin: 09/24/16 09:49 Dose: 100 mls/hr Insulin Aspart (Novolog Vial Sliding Scale -) 1 vial SQ [facility] PRN Reason: Protocol Last Admin: 09/24/16 06:48 Dose: Not Given Insulin Detemir (Levemir Vial) 10 units SQ ACBK [facility] Last Admin: 09/24/16 06:49 Dose: 10 units Levothyroxine Sodium (Synthroid -) 50 mcg PO ACBK [facility] Last Admin: 09/24/16 06:48 Dose: 50 mcg Loratadine (Claritin -) 10 mg PO DAILY [facility] Last Admin: 09/24/16 09:51 Dose: 10 mg Metoclopramide HCl (Reglan -) 5 mg PO ACHS [facility] Last Admin: 09/24/16 06:48 Dose: 5 mg Metoprolol Succinate (Toprol Xl -) 25 mg PO DAILY [facility] Last Admin: 09/24/16 09:50 Dose: 25 mg Mupirocin (Bactroban 2% Cream -) 1 applic TP BID [facility] Last Admin: 09/24/16 09:51 Dose: 1 applic Nystatin (Mycostatin Cream -) 3 applic TP DAILY [facility] Last Admin: 09/24/16 09:52 Dose: 3 applic Nystatin (Nystatin Oral Suspension -) 500,000 units PO Q6HPO [facility] Last Admin: 09/24/16 06:49 Dose: 500,000 units Oxycodone HCl (Roxicodone -) 5 mg PO Q6H PRN PRN Reason: PAIN Last Admin: 09/19/16 09:27 Dose: 5 mg Polyethylene Glycol (Miralax (For Daily Use) -) 17 gm PO BID [facility] Last Admin: 09/24/16 09:52 Dose: 17 gm Senna (Senna -) 2 tab PO HS [facility] Last Admin: 09/23/16 23:03 Dose: 2 tab Simethicone (Mylicon -) 80 mg PO QID [facility] Last Admin: 09/24/16 09:50 Dose: 80 mg Torsemide (Demadex -) 60 mg PO DAILY [facility] A/P 71 year old woman with PMhx of CKD stage 3 w/o significant proteinuria, CHF, COPD, PVD, Chronic LE lymphedema, IDDM, CAD who presented wit fever with BUN/Cr of 85/1.5 and K of 5..5. #CRISTELA on CKD BUN/Cr unchanged no uremic symptoms pt is non-oliguric but has not achieved good response to toresemdie will increase Torsemide to 60mg Daily starting today Trend BUN/Cr and Urine output #Hyperkalemia in setting of renal insufficiency continue Low K diet and diuretics #Fever/UTI continue Abx as per ID #Normocytic Anemia iron saturation is 20% Ferritin is 750 (high as acute phase reactant) s/p Venofer yesterday, will give 100mg more today continue Epogen 3x weekly no indication for transfusion Thank you Lambert Mcnamara DO
--- NOTE | 2016-09-24 11:42 | PN ---
Progress Note, Physician History of Present Illness: More lethargic today C/O R LE pain Afebrile WBC improved- now WNL - Current Medication List Current Medications: Active Medications Acetaminophen (Tylenol -) 650 mg PO DAILY PRN PRN Reason: PAIN LEVEL 6-10 Last Admin: 09/20/16 06:13 Dose: 650 mg Albuterol Sulfate (Ventolin 0.083% Nebulizer Soln -) 1 amp NEB Q6HPO [facility] Last Admin: 09/24/16 05:58 Dose: 1 amp Aspirin (Ecotrin -) 81 mg PO DAILY [facility] Last Admin: 09/24/16 09:50 Dose: 81 mg Atorvastatin Calcium (Lipitor -) 20 mg PO HS [facility] Last Admin: 09/23/16 23:02 Dose: 20 mg Calcium Acetate (Phoslo -) 667 mg PO TIDCM [facility] Last Admin: 09/24/16 11:31 Dose: 667 mg Cyanocobalamin (Vitamin B12 -) 1,000 mcg PO DAILY [facility] Last Admin: 09/24/16 09:51 Dose: 1,000 mcg Docusate Sodium (Colace -) 200 mg PO DAILY [facility] Last Admin: 09/24/16 09:51 Dose: 200 mg Epoetin Dawood (Procrit -) 10,000 unit SQ Rice@10 [facility] Last Admin: 09/22/16 23:08 Dose: 10,000 unit Fluticasone Propionate (Flonase -) 1 spray NS DAILY [facility] Last Admin: 09/24/16 09:52 Dose: 1 puff Folic Acid (Folic Acid -) 1 mg PO DAILY [facility] Last Admin: 09/24/16 09:50 Dose: 1 mg Gabapentin (Neurontin -) 300 mg PO QID [facility] Last Admin: 09/24/16 09:51 Dose: 300 mg Heparin Sodium (Porcine) (Heparin -) 5,000 unit SQ BID [facility] Last Admin: 09/24/16 09:51 Dose: 5,000 unit Ceftriaxone Sodium (Rocephin 1gm Ivpb (Pre-Docked)) 50 mls @ 100 mls/hr IVPB DAILY [facility] Last Admin: 09/24/16 09:49 Dose: 100 mls/hr Iron Sucrose 100 mg/ Sodium (Chloride) 100 mls @ 200 mls/hr IVPB ONCE ONE Stop: 09/24/16 12:14 Insulin Aspart (Novolog Vial Sliding Scale -) [address] [facility] PRN Reason: Protocol Last Admin: 09/24/16 11:20 Dose: Not Given Insulin Detemir (Levemir Vial) 10 units SQ ACBK [facility] Last Admin: 09/24/16 06:49 Dose: 10 units Levothyroxine Sodium (Synthroid -) 50 mcg PO ACBK [facility] Last Admin: 09/24/16 06:48 Dose: 50 mcg Loratadine (Claritin -) 10 mg PO DAILY [facility] Last Admin: 09/24/16 09:51 Dose: 10 mg Metoclopramide HCl (Reglan -) 5 mg PO ACHS [facility] Last Admin: 09/24/16 11:21 Dose: 5 mg Metoprolol Succinate (Toprol Xl -) 25 mg PO DAILY [facility] Last Admin: 09/24/16 09:50 Dose: 25 mg Mupirocin (Bactroban 2% Cream -) 1 applic TP BID [facility] Last Admin: 09/24/16 09:51 Dose: 1 applic Nystatin (Mycostatin Cream -) 3 applic TP DAILY [facility] Last Admin: 09/24/16 09:52 Dose: 3 applic Nystatin (Nystatin Oral Suspension -) 500,000 units PO Q6HPO [facility] Last Admin: 09/24/16 11:31 Dose: 500,000 units Oxycodone HCl (Roxicodone -) 5 mg PO Q6H PRN PRN Reason: PAIN Last Admin: 09/19/16 09:27 Dose: 5 mg Polyethylene Glycol (Miralax (For Daily Use) -) 17 gm PO BID [facility] Last Admin: 09/24/16 09:52 Dose: 17 gm Senna (Senna -) 2 tab PO HS [facility] Last Admin: 09/23/16 23:03 Dose: 2 tab Simethicone (Mylicon -) 80 mg PO QID [facility] Last Admin: 09/24/16 09:50 Dose: 80 mg Torsemide (Demadex -) 60 mg PO DAILY [facility] - Objective Vital Signs: Vital Signs Temperature 97.4 F L 09/24/16 10:00 Pulse Rate 85 09/24/16 10:00 Respiratory Rate 20 09/24/16 10:00 Blood Pressure 137/66 09/24/16 10:00 O2 Sat by Pulse Oximetry (%) 95 09/24/16 09:00 Constitutional: Yes: No Distress, Obese Cardiovascular: Yes: Regular Rate and Rhythm, S1, S2 Respiratory: Yes: Diminished Gastrointestinal: Yes: Normal Bowel Sounds, Soft, Abdomen, Obese. No: Tenderness Extremities: Yes: Other (+ erythema R thigh, distal R LE) Labs: CBC, BMP 09/24/16 05:35 09/24/16 05:35 INR, PTT INR 1.22 (0.82-1.09) H 09/16/16 10:53 Assessment/Plan UTI /Possible sepsis secondary to UTI- Morganella leukocytosis- resolved Thrombocytopenia-resolved Azotemia cellulitis R LE, ? R abdominal wall Continue Ceftriaxone 1gm IVPB q24h Vancomycin redosed- theraputic
[2016-09-24] MEDS ORDERED: IRON SUCROSE INJECTION 100 MG in SODIUM CHLORIDE 95 ML IVPB ONE (11:45)
[2016-09-24] MEDS: ATORVASTATIN CA 20 MG TABLET (FP) PO SCH (22:14)
[2016-09-24] MEDS: SENNOSIDES 8.6MG TABLET (FP) PO SCH (22:15)
[2016-09-25] MEDS: NYSTATIN 500,000 UNITS/5 ML SUSPENSION PO SCH ×4 (00:24→17:01)
[2016-09-25] MEDS: oxyCODONE HCL 5 MG TABLET PO PRN (04:05)
[2016-09-25] MEDS: ACETAMINOPHEN 325 MG TABLET (FP) PO PRN (04:06)
[2016-09-25] MEDS: ALBUTEROL SO4 0.083% IH SOL 2.5 MG/3 ML VIAL.NEB. NEB SCH ×3 (06:35→17:35)
[2016-09-25] MEDS: INSULIN SLIDING SCALE (NOVOLOG) 1 VIAL SQ SCH ×4 (06:37→22:01)
[2016-09-25] MEDS: LEVOTHYROXINE NA 50 MCG TABLET (FP) PO SCH (06:37)
[2016-09-25] MEDS: METOCLOPRAMIDE HCL 10 MG TABLET (FP) PO SCH ×4 (06:37→22:00)
[2016-09-25] MEDS: INSULIN DETEMIR 100 UNITS/ML MDV SQ SCH (07:15)
[2016-09-25 07:30] LABS: MCH 29.7 pg (25.7-33.7); MCHC 31.2 g/dl (32.0-36.0); MEAN PLT VOLUME 8.6 fl (7.5-11.1); PLATELET COUNT 205 K/MM3 (134-434); RDW 16.5 % (11.6-15.6); WHITE BLOOD COUNT 9.3 K/mm3 (4.0-10.0)
[2016-09-25 07:59] LABS: CALCIUM 9.1 mg/dL (8.5-10.1); CREATININE 2.2 mg/dL (0.55-1.02); MAGNESIUM 2.8 mg/dL (1.8-2.4); PHOSPHOROUS 4.8 mg/dL (2.5-4.9)
[2016-09-25] MEDS: CALCIUM ACETATE 667 MG CAPSULE (FP) PO SCH ×3 (08:22→17:01)
[2016-09-25 09:03] LABS: METAMYELOCYTE 3 % (0-2)
[2016-09-25 09:04] LABS: PLATELET ESTIMATE ADEQUATE (NORMAL)
[2016-09-25] MEDS: CEFTRIAXONE 50 ML IVPB SCH (09:40)
[2016-09-25] MEDS: HEPARIN NA (PORCINE) 5,000 UNITS/ML 1ML VIAL SQ SCH ×2 (09:41→22:01)
[2016-09-25] MEDS: ASPIRIN COATED 81 MG TABLET.EC PO SCH (09:41)
[2016-09-25] MEDS: FOLIC ACID 1 MG TABLET (FP) PO SCH (09:41)
[2016-09-25] MEDS: METOPROLOL SUCCINATE 25 MG TAB.SR.24H (FP) PO SCH (09:42)
[2016-09-25] MEDS: CYANOCOBALAMIN 1,000 MCG TABLET (FP) PO SCH (09:42)
[2016-09-25] MEDS: SIMETHICONE 80 MG TAB.CHEW (FP) PO SCH (09:42)
[2016-09-25] MEDS: GABAPENTIN 300 MG CAPSULE (FP) PO SCH ×4 (09:42→22:00)
[2016-09-25] MEDS: LORATADINE 10 MG TABLET PO SCH (09:42)
[2016-09-25] MEDS: DOCUSATE SODIUM 100 MG CAPSULE (FP) PO SCH (09:45)
[2016-09-25] MEDS: POLYETHYLENE GLYCOL 3350 119 GM BTL PO SCH (09:51)
[2016-09-25] MEDS: NYSTATIN 100,000 UNIT/GM TOPICAL CREAM 15 GM TUBE TP SCH (09:53)
[2016-09-25] MEDS: MUPIROCIN CA 2% TOPICAL CREAM 15 GM TUBE TP SCH ×2 (09:54→22:00)
[2016-09-25] MEDS: FLUTICASONE PROP 0.05% 16 GM NASAL SPRAY NS SCH (09:54)
[2016-09-25] MEDS ORDERED: TORSEMIDE 20 MG TABLET (FP) PO SCH (10:00)
--- NOTE | 2016-09-25 11:55 | PN ---
Progress Note, Physician Chief Complaint: sleepy but arousable - Current Medication List Current Medications: Active Medications Acetaminophen (Tylenol -) 650 mg PO DAILY PRN PRN Reason: PAIN LEVEL 6-10 Last Admin: 09/25/16 04:06 Dose: 650 mg Albuterol Sulfate (Ventolin 0.083% Nebulizer Soln -) 1 amp NEB Q6HPO [facility] Last Admin: 09/25/16 11:14 Dose: 1 amp Aspirin (Ecotrin -) 81 mg PO DAILY [facility] Last Admin: 09/25/16 09:41 Dose: 81 mg Atorvastatin Calcium (Lipitor -) 20 mg PO HS [facility] Last Admin: 09/24/16 22:14 Dose: 20 mg Calcium Acetate (Phoslo -) 667 mg PO TIDCM [facility] Last Admin: 09/25/16 11:29 Dose: 667 mg Cyanocobalamin (Vitamin B12 -) 1,000 mcg PO DAILY [facility] Last Admin: 09/25/16 09:42 Dose: 1,000 mcg Docusate Sodium (Colace -) 200 mg PO DAILY [facility] Last Admin: 09/25/16 09:45 Dose: 200 mg Epoetin Dawood (Procrit -) 10,000 unit SQ Rice@10 [facility] Last Admin: 09/22/16 23:08 Dose: 10,000 unit Fluticasone Propionate (Flonase -) 1 spray NS DAILY [facility] Last Admin: 09/25/16 09:54 Dose: 1 puff Folic Acid (Folic Acid -) 1 mg PO DAILY [facility] Last Admin: 09/25/16 09:41 Dose: 1 mg Gabapentin (Neurontin -) 300 mg PO QID [facility] Last Admin: 09/25/16 09:42 Dose: 300 mg Heparin Sodium (Porcine) (Heparin -) 5,000 unit SQ BID [facility] Last Admin: 09/25/16 09:41 Dose: 5,000 unit Ceftriaxone Sodium (Rocephin 1gm Ivpb (Pre-Docked)) 50 mls @ 100 mls/hr IVPB DAILY [facility] Last Admin: 09/25/16 09:40 Dose: 100 mls/hr Insulin Aspart (Novolog Vial Sliding Scale -) 1 vial SQ ACHS [facility] PRN Reason: Protocol Last Admin: 09/25/16 11:30 Dose: Not Given Insulin Detemir (Levemir Vial) 10 units SQ ACBK [facility] Last Admin: 09/25/16 07:15 Dose: 10 units Levothyroxine Sodium (Synthroid -) 50 mcg PO ACBK [facility] Last Admin: 09/25/16 06:37 Dose: 50 mcg Loratadine (Claritin -) 10 mg PO DAILY [facility] Last Admin: 09/25/16 09:42 Dose: 10 mg Metoclopramide HCl (Reglan -) 5 mg PO ACHS [facility] Last Admin: 09/25/16 11:29 Dose: 5 mg Metoprolol Succinate (Toprol Xl -) 25 mg PO DAILY [facility] Last Admin: 09/25/16 09:42 Dose: 25 mg Mupirocin (Bactroban 2% Cream -) 1 applic TP BID [facility] Last Admin: 09/25/16 09:54 Dose: 1 applic Nystatin (Mycostatin Cream -) 3 applic TP DAILY [facility] Last Admin: 09/25/16 09:53 Dose: 3 applic Nystatin (Nystatin Oral Suspension -) 500,000 units PO Q6HPO [facility] Last Admin: 09/25/16 11:29 Dose: 500,000 units Oxycodone HCl (Roxicodone -) 5 mg PO Q6H PRN PRN Reason: PAIN Last Admin: 09/25/16 04:05 Dose: 5 mg Polyethylene Glycol (Miralax (For Daily Use) -) 17 gm PO BID [facility] Last Admin: 09/25/16 09:51 Dose: 17 gm Senna (Senna -) 2 tab PO HS [facility] Last Admin: 09/24/16 22:15 Dose: 2 tab Simethicone (Mylicon -) 80 mg PO QID [facility] Last Admin: 09/25/16 09:42 Dose: 80 mg Torsemide (Demadex -) 60 mg PO DAILY [facility] Last Admin: 09/25/16 09:45 Dose: 60 mg - Objective Vital Signs: Vital Signs Temperature 97.7 F 09/25/16 07:13 Pulse Rate 87 09/25/16 10:14 Respiratory Rate 20 09/25/16 07:33 Blood Pressure 129/62 09/25/16 07:13 O2 Sat by Pulse Oximetry (%) 97 09/25/16 10:14 Constitutional: Yes: Calm Eyes: Yes: Conjunctiva Clear HENT: Yes: Atraumatic Neck: Yes: Supple Cardiovascular: Yes: Regular Rate and Rhythm Respiratory: Yes: CTA Bilaterally Gastrointestinal: Yes: Soft. No: Distention Genitourinary: Yes: Graf Present. No: Hematuria Edema: Yes Integumentary: Yes: Rash Neurological: Yes: Alert Psychiatric: Yes: Alert. No: Agitated Labs: CBC, BMP 09/25/16 05:35 09/25/16 05:35 INR, PTT INR 1.22 (0.82-1.09) H 09/16/16 10:53 - ....Imaging Other: Report Reviewed Assessment/Plan The patient is a 71 year old female brought via EMS from [facility], with a significant past medical history of Hypothyroidism, Diabetes, HTN, CHF, PA x2, (on home O2, 2L), left BKA, anemia, essential tremors, CAD, GERD, CKD and obesity, admitted with UTI, RLE cellulitis, neck and R axilla fungic rash improved; sepsis, low BP/ r/o septic shock; R foot cold r/o ischemia - surgery f /u ARF oliguric - renal f/u; broad spectrum ATB per ID CHF - cardiology f/u; s/p 1 dose lasix IV, f/u labs DVT falls decubs and aspiration PFX HOB BGM, DM control; prognosis guarded d/w pt and staff
--- NOTE | 2016-09-25 12:13 | PN ---
Progress Note (short form) - Note Progress Note: CC: trop elevation S: no cp, palps, sob, dizziness Current Medications Generic Name Dose Route Start Last Admin Trade Name Freq PRN Reason Stop Dose Admin Acetaminophen 650 mg 09/16/16 19:39 09/25/16 04:06 Tylenol - PO 650 mg DAILY PRN Administration PAIN LEVEL 6-10 Albuterol Sulfate 1 amp 09/16/16 19:15 09/25/16 11:14 Ventolin 0.083% Nebulizer Soln - NEB 1 amp Q6HPO [facility] Administration Aspirin 81 mg 09/17/16 10:00 09/25/16 09:41 Ecotrin - PO 81 mg DAILY [facility] Administration Atorvastatin Calcium 20 mg 09/16/16 22:00 09/24/16 22:14 Lipitor - PO 20 mg HS [facility] Administration Calcium Acetate 667 mg 09/17/16 08:00 09/25/16 11:29 Phoslo - PO 667 mg TIDCM [facility] Administration Cyanocobalamin 1,000 mcg 09/17/16 10:00 09/25/16 09:42 Vitamin B12 - PO 1,000 mcg DAILY [facility] Administration Docusate Sodium 200 mg 09/17/16 10:00 09/25/16 09:45 Colace - PO 200 mg DAILY [facility] Administration Epoetin Dawood 10,000 unit 09/22/16 10:00 09/22/16 23:08 Procrit - SQ 10,000 unit Rice@10 [facility] Administration Fluticasone Propionate 1 spray 09/17/16 10:00 09/25/16 09:54 Flonase - NS 1 puff DAILY [facility] Administration Folic Acid 1 mg 09/17/16 10:00 09/25/16 09:41 Folic Acid - PO 1 mg DAILY [facility] Administration Gabapentin 300 mg 09/16/16 22:00 09/25/16 09:42 Neurontin - PO 300 mg QID [facility] Administration Heparin Sodium (Porcine) 5,000 unit 09/16/16 22:00 09/25/16 09:41 Heparin - SQ 5,000 unit BID [facility] Administration Ceftriaxone Sodium 50 mls @ 100 mls/hr 09/19/16 10:45 09/25/16 09:40 Rocephin 1gm Ivpb (Pre-Docked) IVPB 100 mls/hr DAILY [facility] Administration Insulin Aspart 1 vial 09/16/16 22:00 09/25/16 11:30 Novolog Vial Sliding Scale - SQ Not Given ACHS [facility] Protocol Insulin Detemir 10 units 09/17/16 10:18 09/25/16 07:15 Levemir Vial SQ 10 units ACBK [facility] Administration Levothyroxine Sodium 50 mcg 09/17/16 07:00 09/25/16 06:37 Synthroid - PO 50 mcg ACBK [facility] Administration Loratadine 10 mg 09/17/16 10:00 09/25/16 09:42 Claritin - PO 10 mg DAILY [facility] Administration Metoclopramide HCl 5 mg 09/16/16 22:00 09/25/16 11:29 Reglan - PO 5 mg ACHS [facility] Administration Metoprolol Succinate 25 mg 09/18/16 11:59 09/25/16 09:42 Toprol Xl - PO 25 mg DAILY [facility] Administration Mupirocin 1 applic 09/16/16 22:00 09/25/16 09:54 Bactroban 2% Cream - TP 1 applic BID [facility] Administration Nystatin 3 applic 09/17/16 10:00 09/25/16 09:53 Mycostatin Cream - TP 3 applic DAILY [facility] Administration Nystatin 500,000 units 09/21/16 12:00 09/25/16 11:29 Nystatin Oral Suspension - PO 500,000 units Q6HPO [facility] Administration Oxycodone HCl 5 mg 09/16/16 19:11 09/25/16 04:05 Roxicodone - PO 5 mg Q6H PRN Administration PAIN Polyethylene Glycol 17 gm 09/16/16 22:00 09/25/16 09:51 Miralax (For Daily Use) - PO 17 gm BID [facility] Administration Senna 2 tab 09/16/16 22:00 09/24/16 22:15 Senna - PO 2 tab HS [facility] Administration Simethicone 80 mg 09/16/16 22:00 09/25/16 09:42 Mylicon - PO 80 mg QID [facility] Administration Torsemide 60 mg 09/25/16 10:00 09/25/16 09:45 Demadex - PO 60 mg DAILY [facility] Administration Vital Signs Period Temp Pulse Resp BP Sys/Hagan Pulse Ox Last 24 Hr 97.7 F-98.7 F 63-87 20-20 97-138/40-76 96-99 NAD, obese, jvd tds RRR nl s1, s2 2/6 murmur at sternal border and apex scattered rhonchi bl, poor effort + bs soft obese edematous nt +distension diminished distal pulses. s/p lt bka trace le edema erythema/venous stasis changes/skin excoriations and pe[place] d' orange changes of LE skin aaox3 no jaundice diaphoresis CBC, BMP 09/25/16 05:35 09/25/16 05:35 EKG here: stach, 105 bpm. poor r wave progression. non- specific tw changes, no sig change from prior tele: sr Echo 07/01/2016: Mild decr EF. paradoxical septal motion with mild HK of anteroseptum. RV not seen. 1+ mr/tr. mild (although MG only 12 mmHg). Echo 06/2015: mild-mod decr EF--global; nl RV; mild LAE; mild-mod MR/TR; RVSP 30- 40; small peric effusion; + pleural eff cxr: tds a/p: 71 yo with h/o HFpEF, CAD s/p HI, HTN, HL, pHTN, MIRIAM, o2 dep't copd, CKD , IDDM, hypothyroid and chronic LLE cellulitis/lt foot gangrene s/p L BKA, here with n/v. intermediate troponin elevation/CAD -has previously refused stress tests. h/o prior NSTEMI x 2 (2012, 2014) in setting of demand (sepsis/anemia). Con't JUAN ANTONIO, but current elevation likely in setting of demand. -cath previously deferred due to: pt preference; hi risk of vascular complications (obese habitus), hi risk of BERNARDINO, and h/o recurrent anemia, possible occult GIB -currently without anginal sx's. EKG unchanged. Con't statin, BB, asa. imdur held for hypotension. -MATEO deferred previously due to labile creat's--no change; chronic foot wound, gangrene, now s/p bka 07/03/16: - per pmd/vascular chronic HFpEF/pulm HTN/venous ins'y/acute on chronic hypoxic and hypercapneic resp failure: - mild systolic dysfunction, presumed RV dysfunction. - pt currently on IVF with fever/infection. holding diuresis for now. Patient with chronic third spacing and total body volume overload, but intermittently with vascular depletion. - 09/21: IVF stopped today per renal, diuresis per renal. - 09/22: bun improved after stopping IVF yesterday. starting torsemide per renal. - 09/23: slight improvement in bmp on torsemide. diuretic management per renal. - 09/24: ongoing improvement in bmp and lfts. torsemide dose uptitrated this morning to 60 mg/day. diuretic management per renal. - 09/25: cont torsemide - Abdomen tense and distended, abd u/s --> no ascites PSVT: -likely brief run of ATach on prior tele , no recurrence -con't bb as bp tolerates VTach: -17 beat run of NSVT on prior tele (previous admit), no recurrence -K/Mag repletion prn -con't bb as bp tolerates CKD - cr above baseline, no sig improvement with ivfs/holding diuretics. stopped IVF 09/21. started torsemide 09/22. - renal following MIRIAM - on bipap qhs. anemia: -chronic, baseline runs 8s-9s; -freq acute drops/PRBCs in past; currently above baseline. HTN: -controlled. monitor for hypotension in setting of infection - con't home bp meds, as bp tolerates. imdur held for hypotension.
--- NOTE | 2016-09-25 13:21 | PN ---
Progress Note (short form) - Note Progress Note: Renal Follow up for CRISTELA on CKD Pt seen and examined at the bedside awake and alert complains of pain when she is being moved denies sob, chest pain, abd pain, N/V/D Vital Signs Temperature 97.7 F 09/25/16 07:13 Pulse Rate 87 09/25/16 10:14 Respiratory Rate 20 09/25/16 07:33 Blood Pressure 129/62 09/25/16 07:13 O2 Sat by Pulse Oximetry (%) 97 09/25/16 10:14 Intake & Output 09/22/16 09/23/16 09/24/16 09/25/16 23:59 23:59 23:59 23:59 Intake Total 900 970 960 210 Output Total 450 320 100 Balance 450 970 640 110 Weight 309 lb 12.8 oz 304 lb 8 oz 304 lb 8 oz 302 lb 2 oz Gen: NAD, awake and alert CVS: RRR, No M/R Lungs: Dec BS at the lung bases Abd: soft NT/ND, Obese Ext: 2+ lymphedema, R BKA CBC, BMP 09/25/16 05:35 09/25/16 05:35 Current Medications Acetaminophen (Tylenol -) 650 mg PO DAILY PRN PRN Reason: PAIN LEVEL 6-10 Last Admin: 09/25/16 04:06 Dose: 650 mg Albuterol Sulfate (Ventolin 0.083% Nebulizer Soln -) 1 amp NEB Q6HPO [facility] Last Admin: 09/25/16 11:14 Dose: 1 amp Aspirin (Ecotrin -) 81 mg PO DAILY [facility] Last Admin: 09/25/16 09:41 Dose: 81 mg Atorvastatin Calcium (Lipitor -) 20 mg PO HS [facility] Last Admin: 09/24/16 22:14 Dose: 20 mg Calcium Acetate (Phoslo -) 667 mg PO TIDCM [facility] Last Admin: 09/25/16 11:29 Dose: 667 mg Cyanocobalamin (Vitamin B12 -) 1,000 mcg PO DAILY [facility] Last Admin: 09/25/16 09:42 Dose: 1,000 mcg Docusate Sodium (Colace -) 200 mg PO DAILY [facility] Last Admin: 09/25/16 09:45 Dose: 200 mg Epoetin Dawood (Procrit -) 10,000 unit SQ Rice@10 [facility] Last Admin: 09/22/16 23:08 Dose: 10,000 unit Fluticasone Propionate (Flonase -) 1 spray NS DAILY [facility] Last Admin: 09/25/16 09:54 Dose: 1 puff Folic Acid (Folic Acid -) 1 mg PO DAILY [facility] Last Admin: 09/25/16 09:41 Dose: 1 mg Furosemide (Lasix Injection -) 80 mg IVPB ONCE ONE Stop: 09/25/16 14:01 Gabapentin (Neurontin -) 300 mg PO QID [facility] Last Admin: 09/25/16 09:42 Dose: 300 mg Heparin Sodium (Porcine) (Heparin -) 5,000 unit SQ BID [facility] Last Admin: 09/25/16 09:41 Dose: 5,000 unit Ceftriaxone Sodium (Rocephin 1gm Ivpb (Pre-Docked)) 50 mls @ 100 mls/hr IVPB DAILY [facility] Last Admin: 09/25/16 09:40 Dose: 100 mls/hr Insulin Aspart (Novolog Vial Sliding Scale -) 1 vial SQ [facility] PRN Reason: Protocol Last Admin: 09/25/16 11:30 Dose: Not Given Insulin Detemir (Levemir Vial) 10 units SQ ACBK [facility] Last Admin: 09/25/16 07:15 Dose: 10 units Levothyroxine Sodium (Synthroid -) 50 mcg PO ACBK [facility] Last Admin: 09/25/16 06:37 Dose: 50 mcg Loratadine (Claritin -) 10 mg PO DAILY [facility] Last Admin: 09/25/16 09:42 Dose: 10 mg Metoclopramide HCl (Reglan -) 5 mg PO ACHS [facility] Last Admin: 09/25/16 11:29 Dose: 5 mg Metoprolol Succinate (Toprol Xl -) 25 mg PO DAILY [facility] Last Admin: 09/25/16 09:42 Dose: 25 mg Mupirocin (Bactroban 2% Cream -) 1 applic TP BID [facility] Last Admin: 09/25/16 09:54 Dose: 1 applic Nystatin (Mycostatin Cream -) 3 applic TP DAILY [facility] Last Admin: 09/25/16 09:53 Dose: 3 applic Nystatin (Nystatin Oral Suspension -) 500,000 units PO Q6HPO [facility] Last Admin: 09/25/16 11:29 Dose: 500,000 units Oxycodone HCl (Roxicodone -) 5 mg PO Q6H PRN PRN Reason: PAIN Last Admin: 09/25/16 04:05 Dose: 5 mg Polyethylene Glycol (Miralax (For Daily Use) -) 17 gm PO BID [facility] Last Admin: 09/25/16 09:51 Dose: 17 gm Senna (Senna -) 2 tab PO HS [facility] Last Admin: 09/24/16 22:15 Dose: 2 tab A/P 71 year old woman with PMhx of CKD stage 3 w/o significant proteinuria, CHF, COPD, PVD, Chronic LE lymphedema, IDDM, CAD who presented wit fever with BUN/Cr of 85/1.5 and K of 5..5. #CRISTELA on CKD Renal function unchanged urine output is oliguric will give Lasix 80mg IVPB this afternoon monitor urine output and titrate diuretics to get good response #Hyperkalemia in setting of renal insufficiency continue Low K diet and diuretics #Fever/UTI continue Abx as per ID #Normocytic Anemia iron saturation is 20% Ferritin is 750 (high as acute phase reactant) s/p Venofer x 2, for 3rd dose today continue Epogen 3x weekly no indication for transfusion Thank you Lambert Mcnamara DO
[2016-09-25] MEDS ORDERED: FUROSEMIDE 40 MG/4 ML INJECTABLE VIAL IVPB ONE (14:00)
[2016-09-25] MEDS ORDERED: IRON SUCROSE INJECTION 100 MG in SODIUM CHLORIDE 95 ML IVPB ONE (15:00)
--- NOTE | 2016-09-25 17:40 | PN ---
Progress Note, Physician History of Present Illness: Awake, responsive No c/o leg pain at present Afebrile WBC WNL Vanco level theraputic - Current Medication List Current Medications: Active Medications Acetaminophen (Tylenol -) 650 mg PO DAILY PRN PRN Reason: PAIN LEVEL 6-10 Last Admin: 09/25/16 04:06 Dose: 650 mg Albuterol Sulfate (Ventolin 0.083% Nebulizer Soln -) 1 amp NEB Q6HPO [facility] Last Admin: 09/25/16 11:14 Dose: 1 amp Aspirin (Ecotrin -) 81 mg PO DAILY [facility] Last Admin: 09/25/16 09:41 Dose: 81 mg Atorvastatin Calcium (Lipitor -) 20 mg PO HS [facility] Last Admin: 09/24/16 22:14 Dose: 20 mg Calcium Acetate (Phoslo -) 667 mg PO TIDCM [facility] Last Admin: 09/25/16 17:01 Dose: 667 mg Cyanocobalamin (Vitamin B12 -) 1,000 mcg PO DAILY [facility] Last Admin: 09/25/16 09:42 Dose: 1,000 mcg Docusate Sodium (Colace -) 200 mg PO DAILY [facility] Last Admin: 09/25/16 09:45 Dose: 200 mg Epoetin Dawood (Procrit -) 10,000 unit SQ Rice@10 [facility] Last Admin: 09/22/16 23:08 Dose: 10,000 unit Fluticasone Propionate (Flonase -) 1 spray NS DAILY [facility] Last Admin: 09/25/16 09:54 Dose: 1 puff Folic Acid (Folic Acid -) 1 mg PO DAILY [facility] Last Admin: 09/25/16 09:41 Dose: 1 mg Gabapentin (Neurontin -) 300 mg PO QID [facility] Last Admin: 09/25/16 17:01 Dose: 300 mg Heparin Sodium (Porcine) (Heparin -) 5,000 unit SQ BID [facility] Last Admin: 09/25/16 09:41 Dose: 5,000 unit Ceftriaxone Sodium (Rocephin 1gm Ivpb (Pre-Docked)) 50 mls @ 100 mls/hr IVPB DAILY [facility] Last Admin: 09/25/16 09:40 Dose: 100 mls/hr Insulin Aspart (Novolog Vial Sliding Scale -) 1 vial SQ ACHS [facility] PRN Reason: Protocol Last Admin: 09/25/16 16:59 Dose: Not Given Insulin Detemir (Levemir Vial) 10 units SQ ACBK [facility] Last Admin: 09/25/16 07:15 Dose: 10 units Levothyroxine Sodium (Synthroid -) 50 mcg PO ACBK [facility] Last Admin: 09/25/16 06:37 Dose: 50 mcg Loratadine (Claritin -) 10 mg PO DAILY [facility] Last Admin: 09/25/16 09:42 Dose: 10 mg Metoclopramide HCl (Reglan -) 5 mg PO ACHS [facility] Last Admin: 09/25/16 17:01 Dose: 5 mg Metoprolol Succinate (Toprol Xl -) 25 mg PO DAILY [facility] Last Admin: 09/25/16 09:42 Dose: 25 mg Mupirocin (Bactroban 2% Cream -) 1 applic TP BID [facility] Last Admin: 09/25/16 09:54 Dose: 1 applic Nystatin (Mycostatin Cream -) 3 applic TP DAILY [facility] Last Admin: 09/25/16 09:53 Dose: 3 applic Nystatin (Nystatin Oral Suspension -) 500,000 units PO Q6HPO [facility] Last Admin: 09/25/16 17:01 Dose: 500,000 units Oxycodone HCl (Roxicodone -) 5 mg PO Q6H PRN PRN Reason: PAIN Last Admin: 09/25/16 04:05 Dose: 5 mg Polyethylene Glycol (Miralax (For Daily Use) -) 17 gm PO BID [facility] Last Admin: 09/25/16 09:51 Dose: 17 gm Senna (Senna -) 2 tab PO HS [facility] Last Admin: 09/24/16 22:15 Dose: 2 tab - Objective Vital Signs: Vital Signs Temperature 97.5 F L 09/25/16 15:00 Pulse Rate 84 09/25/16 15:00 Respiratory Rate 22 09/25/16 15:00 Blood Pressure 122/67 09/25/16 15:00 O2 Sat by Pulse Oximetry (%) 93 L 09/25/16 14:34 Constitutional: Yes: No Distress, Obese Eyes: Yes: Conjunctiva Clear Cardiovascular: Yes: Regular Rate and Rhythm, S1, S2 Respiratory: Yes: Diminished Gastrointestinal: Yes: Normal Bowel Sounds, Soft, Abdomen, Obese. No: Tenderness Extremities: Yes: Other (+ R LE edema/ diffuse erythema) Labs: CBC, BMP 09/25/16 05:35 09/25/16 05:35 INR, PTT INR 1.22 (0.82-1.09) H 09/16/16 10:53 Assessment/Plan UTI /Possible sepsis secondary to UTI- Morganella leukocytosis- resolved Thrombocytopenia-resolved Azotemia cellulitis R LE, recurrent Continue Ceftriaxone 1gm IVPB q24h Vancomycin redosed- theraputic
[2016-09-25] MEDS: SENNOSIDES 8.6MG TABLET (FP) PO SCH (22:00)
[2016-09-25] MEDS: ATORVASTATIN CA 20 MG TABLET (FP) PO SCH (22:00)
[2016-09-26] MEDS: ALBUTEROL SO4 0.083% IH SOL 2.5 MG/3 ML VIAL.NEB. NEB SCH ×4 (00:09→17:28)
[2016-09-26] MEDS: METOCLOPRAMIDE HCL 10 MG TABLET (FP) PO SCH ×4 (06:40→22:22)
[2016-09-26] MEDS: LEVOTHYROXINE NA 50 MCG TABLET (FP) PO SCH (06:40)
[2016-09-26] MEDS: INSULIN SLIDING SCALE (NOVOLOG) 1 VIAL SQ SCH ×4 (06:40→22:23)
[2016-09-26] MEDS: INSULIN DETEMIR 100 UNITS/ML MDV SQ SCH (06:41)
[2016-09-26] MEDS: POLYETHYLENE GLYCOL 3350 119 GM BTL PO SCH ×3 (06:42→22:23)
[2016-09-26] MEDS: NYSTATIN 500,000 UNITS/5 ML SUSPENSION PO SCH ×4 (06:42→17:33)
[2016-09-26] MEDS: CALCIUM ACETATE 667 MG CAPSULE (FP) PO SCH ×3 (08:01→17:34)
[2016-09-26 08:12] LABS: BASOPHIL 1.2 % (0-2.0); EOSINOPHIL 1.8 % (0-4.5); MCH 29.1 pg (25.7-33.7); MCHC 30.6 g/dl (32.0-36.0); MEAN CELL VOLUME 95.1 fl (80-96); MEAN PLT VOLUME 8.4 fl (7.5-11.1); NEUTROPHILS 76.6 % (42.8-82.8); PLATELET COUNT 227 K/MM3 (134-434); RDW 16.1 % (11.6-15.6); WHITE BLOOD COUNT 10.5 K/mm3 (4.0-10.0)
[2016-09-26 09:03] LABS: MAGNESIUM 2.8 mg/dL (1.8-2.4); PHOSPHOROUS 5.3 mg/dL (2.5-4.9)
[2016-09-26 09:12] LABS: ALBUMIN 2.1 g/dl (3.4-5.0); BILIRUBIN,TOTAL 0.5 mg/dL (0.2-1.0); CALCIUM 8.6 mg/dL (8.5-10.1); COCKROFT - GAULT 47.8295; CREATININE 2.3 mg/dL (0.55-1.02); THYROID STIMULATING HORMONE 21.1 uIU/ml (0.358-3.74); TOT PROT 6.7 g/dl (6.4-8.2)
[2016-09-26] MEDS ORDERED: LORATADINE 10 MG TABLET PO PRN (09:37)
[2016-09-26] MEDS ORDERED: SODIUM POLYSTYRENE SULFONATE 15 GM/60 ML BOTTLE PO ONE (09:38)
--- NOTE | 2016-09-26 09:42 | PN ---
Progress Note, Physician Chief Complaint: higher BUN/creat after 1 dose of lasix; stopped; as per many previous discussions we had in the past and now currently, pt clearly expressed the wish for no dialysis and for DNR DNI - Current Medication List Current Medications: Active Medications Acetaminophen (Tylenol -) 650 mg PO DAILY PRN PRN Reason: PAIN LEVEL 6-10 Last Admin: 09/25/16 04:06 Dose: 650 mg Albuterol Sulfate (Ventolin 0.083% Nebulizer Soln -) 1 amp NEB Q6HPO [facility] Last Admin: 09/26/16 06:49 Dose: 1 amp Aspirin (Ecotrin -) 81 mg PO DAILY [facility] Last Admin: 09/25/16 09:41 Dose: 81 mg Atorvastatin Calcium (Lipitor -) 20 mg PO HS [facility] Last Admin: 09/25/16 22:00 Dose: 20 mg Calcium Acetate (Phoslo -) 667 mg PO TIDCM [facility] Last Admin: 09/25/16 17:01 Dose: 667 mg Cyanocobalamin (Vitamin B12 -) 1,000 mcg PO DAILY [facility] Last Admin: 09/25/16 09:42 Dose: 1,000 mcg Docusate Sodium (Colace -) 200 mg PO DAILY [facility] Last Admin: 09/25/16 09:45 Dose: 200 mg Epoetin Dawood (Procrit -) 10,000 unit SQ Rice@10 [facility] Last Admin: 09/22/16 23:08 Dose: 10,000 unit Fluticasone Propionate (Flonase -) 1 spray NS DAILY [facility] Last Admin: 09/25/16 09:54 Dose: 1 puff Folic Acid (Folic Acid -) 1 mg PO DAILY [facility] Last Admin: 09/25/16 09:41 Dose: 1 mg Gabapentin (Neurontin -) 300 mg PO QID [facility] Last Admin: 09/25/16 22:00 Dose: 300 mg Heparin Sodium (Porcine) (Heparin -) 5,000 unit SQ BID [facility] Last Admin: 09/25/16 22:01 Dose: 5,000 unit Ceftriaxone Sodium (Rocephin 1gm Ivpb (Pre-Docked)) 50 mls @ 100 mls/hr IVPB DAILY [facility] Last Admin: 09/25/16 09:40 Dose: 100 mls/hr Insulin Aspart (Novolog Vial Sliding Scale -) 1 vial SQ ACHS [facility] PRN Reason: Protocol Last Admin: 09/26/16 06:40 Dose: Not Given Insulin Detemir (Levemir Vial) 10 units SQ ACBK [facility] Last Admin: 09/26/16 06:41 Dose: 10 units Levothyroxine Sodium (Synthroid -) 75 mcg PO ACBK [facility] Loratadine (Claritin -) 10 mg PO DAILY PRN PRN Reason: FOR ITCHING Metoclopramide HCl (Reglan -) 5 mg PO ACHS [facility] Last Admin: 09/26/16 06:40 Dose: 5 mg Metoprolol Succinate (Toprol Xl -) 25 mg PO DAILY [facility] Last Admin: 09/25/16 09:42 Dose: 25 mg Mupirocin (Bactroban 2% Cream -) 1 applic TP BID [facility] Last Admin: 09/25/16 22:00 Dose: 1 applic Nystatin (Mycostatin Cream -) 3 applic TP DAILY [facility] Last Admin: 09/25/16 09:53 Dose: 3 applic Nystatin (Nystatin Oral Suspension -) 500,000 units PO Q6HPO [facility] Last Admin: 09/26/16 06:42 Dose: 500,000 units Oxycodone HCl (Roxicodone -) 5 mg PO Q6H PRN PRN Reason: PAIN Last Admin: 09/25/16 04:05 Dose: 5 mg Polyethylene Glycol (Miralax (For Daily Use) -) 17 gm PO BID [facility] Last Admin: 09/26/16 06:42 Dose: Not Given Senna (Senna -) 2 tab PO HS [facility] Last Admin: 09/25/16 22:00 Dose: 2 tab - Objective Vital Signs: Vital Signs Temperature 98 F 09/26/16 07:50 Pulse Rate 64 09/26/16 07:50 Respiratory Rate 20 09/26/16 08:13 Blood Pressure 110/62 09/26/16 07:50 O2 Sat by Pulse Oximetry (%) 95 09/25/16 21:00 Constitutional: Yes: No Distress, Calm Eyes: Yes: Conjunctiva Clear HENT: Yes: Atraumatic Neck: Yes: Supple Cardiovascular: Yes: Regular Rate and Rhythm Respiratory: Yes: Diminished Gastrointestinal: Yes: Soft, Abdomen, Obese Genitourinary: No: Hematuria Musculoskeletal: No: Joint Stiffness, Joint Swelling Extremities: No: Cold, Cool Edema: Yes (RLE rash and swelling) Neurological: Yes: Alert Psychiatric: Yes: Alert. No: Agitated Labs: CBC, BMP 09/26/16 06:00 09/26/16 06:00 INR, PTT INR 1.22 (0.82-1.09) H 09/16/16 10:53 - ....Imaging Other: Report Reviewed Assessment/Plan The patient is a 71 year old female brought via EMS from [facility], with a significant past medical history of Hypothyroidism, Diabetes, HTN, CHF, [place] x2, (on home O2, 2L), left BKA, anemia, essential tremors, CAD, GERD, CKD and obesity, admitted with UTI, RLE cellulitis, neck and R axilla fungic rash improved; sepsis, low BP/ r/o septic shock; R foot cold r/o ischemia - surgery f /u ARF oliguric - renal f/u; broad spectrum ATB per ID CHF - cardiology f/u; s/p 1 dose lasix IV, more uremic; higher BUN/creat and K 5.4 - stopped lasix; gave kayexalate d/w renal dr Mcnamara, f/u labs DVT falls decubs and aspiration PFX HOB BGM, DM control; DNR DNI no dyalsis per pt's prior and current wishes prognosis poor d/w pt and staff
[2016-09-26] MEDS: METOPROLOL SUCCINATE 25 MG TAB.SR.24H (FP) PO SCH (10:00)
[2016-09-26] MEDS: CEFTRIAXONE 50 ML IVPB SCH (10:00)
[2016-09-26] MEDS: HEPARIN NA (PORCINE) 5,000 UNITS/ML 1ML VIAL SQ SCH ×2 (10:00→22:23)
[2016-09-26] MEDS: DOCUSATE SODIUM 100 MG CAPSULE (FP) PO SCH (10:00)
[2016-09-26] MEDS: CYANOCOBALAMIN 1,000 MCG TABLET (FP) PO SCH (10:00)
[2016-09-26] MEDS: GABAPENTIN 300 MG CAPSULE (FP) PO SCH ×4 (10:01→22:23)
[2016-09-26] MEDS: MUPIROCIN CA 2% TOPICAL CREAM 15 GM TUBE TP SCH ×2 (10:02→22:23)
[2016-09-26] MEDS: NYSTATIN 100,000 UNIT/GM TOPICAL CREAM 15 GM TUBE TP SCH (10:04)
[2016-09-26] MEDS: FLUTICASONE PROP 0.05% 16 GM NASAL SPRAY NS SCH (10:04)
[2016-09-26] MEDS: FOLIC ACID 1 MG TABLET (FP) PO SCH (10:07)
[2016-09-26] MEDS: ASPIRIN COATED 81 MG TABLET.EC PO SCH (10:07)
--- NOTE | 2016-09-26 11:51 | PN ---
Progress Note, Physician History of Present Illness: Lethargic today No c/o leg pain Afebrile WBC 10.5 - Current Medication List Current Medications: Active Medications Acetaminophen (Tylenol -) 650 mg PO DAILY PRN PRN Reason: PAIN LEVEL 6-10 Last Admin: 09/25/16 04:06 Dose: 650 mg Albuterol Sulfate (Ventolin 0.083% Nebulizer Soln -) 1 amp NEB Q6HPO [facility] Last Admin: 09/26/16 11:38 Dose: 1 amp Aspirin (Ecotrin -) 81 mg PO DAILY [facility] Last Admin: 09/26/16 10:07 Dose: 81 mg Atorvastatin Calcium (Lipitor -) 20 mg PO HS [facility] Last Admin: 09/25/16 22:00 Dose: 20 mg Calcium Acetate (Phoslo -) 667 mg PO TIDCM [facility] Last Admin: 09/26/16 08:01 Dose: 667 mg Cyanocobalamin (Vitamin B12 -) 1,000 mcg PO DAILY [facility] Last Admin: 09/26/16 10:00 Dose: 1,000 mcg Docusate Sodium (Colace -) 200 mg PO DAILY [facility] Last Admin: 09/26/16 10:00 Dose: 200 mg Epoetin Dawood (Procrit -) 10,000 unit SQ Rice@10 [facility] Last Admin: 09/22/16 23:08 Dose: 10,000 unit Fluticasone Propionate (Flonase -) 1 spray NS DAILY [facility] Last Admin: 09/26/16 10:04 Dose: 1 puff Folic Acid (Folic Acid -) 1 mg PO DAILY [facility] Last Admin: 09/26/16 10:07 Dose: 1 mg Gabapentin (Neurontin -) 300 mg PO QID [facility] Last Admin: 09/26/16 10:01 Dose: 300 mg Heparin Sodium (Porcine) (Heparin -) 5,000 unit SQ BID [facility] Last Admin: 09/26/16 10:00 Dose: 5,000 unit Ceftriaxone Sodium (Rocephin 1gm Ivpb (Pre-Docked)) 50 mls @ 100 mls/hr IVPB DAILY [facility] Last Admin: 09/26/16 10:00 Dose: 100 mls/hr Insulin Aspart (Novolog Vial Sliding Scale -) 1 vial SQ ACHS [facility] PRN Reason: Protocol Last Admin: 09/26/16 06:40 Dose: Not Given Insulin Detemir (Levemir Vial) 10 units SQ ACBK [facility] Last Admin: 09/26/16 06:41 Dose: 10 units Levothyroxine Sodium (Synthroid -) 75 mcg PO ACBK [facility] Loratadine (Claritin -) 10 mg PO DAILY PRN PRN Reason: FOR ITCHING Metoclopramide HCl (Reglan -) 5 mg PO ACHS [facility] Last Admin: 09/26/16 06:40 Dose: 5 mg Metoprolol Succinate (Toprol Xl -) 25 mg PO DAILY [facility] Last Admin: 09/26/16 10:00 Dose: 25 mg Mupirocin (Bactroban 2% Cream -) 1 applic TP BID [facility] Last Admin: 09/26/16 10:02 Dose: 1 applic Nystatin (Mycostatin Cream -) 3 applic TP DAILY [facility] Last Admin: 09/26/16 10:04 Dose: 3 applic Nystatin (Nystatin Oral Suspension -) 500,000 units PO Q6HPO [facility] Last Admin: 09/26/16 06:42 Dose: 500,000 units Oxycodone HCl (Roxicodone -) 5 mg PO Q6H PRN PRN Reason: PAIN Last Admin: 09/25/16 04:05 Dose: 5 mg Polyethylene Glycol (Miralax (For Daily Use) -) 17 gm PO BID [facility] Last Admin: 09/26/16 10:07 Dose: 17 gm Senna (Senna -) 2 tab PO HS [facility] Last Admin: 09/25/16 22:00 Dose: 2 tab - Objective Vital Signs: Vital Signs Temperature 98 F 09/26/16 07:50 Pulse Rate 80 09/26/16 10:55 Respiratory Rate 20 09/26/16 08:13 Blood Pressure 110/62 09/26/16 07:50 O2 Sat by Pulse Oximetry (%) 100 09/26/16 10:55 Constitutional: Yes: No Distress Cardiovascular: Yes: Regular Rate and Rhythm, S1, S2 Respiratory: Yes: Rhonchi Gastrointestinal: Yes: Normal Bowel Sounds, Soft, Abdomen, Obese. No: Tenderness Extremities: Yes: Other (R LE appears less erythematous, but distal L stump site now appears red) Labs: CBC, BMP 09/26/16 06:00 09/26/16 06:00 INR, PTT INR 1.22 (0.82-1.09) H 09/16/16 10:53 Assessment/Plan UTI /Possible sepsis secondary to UTI- Morganella leukocytosis Thrombocytopenia-resolved Azotemia cellulitis R LE, recurrent Continue Ceftriaxone 1gm IVPB q24h Vancomycin theraputic
--- NOTE | 2016-09-26 12:23 | PN ---
Progress Note (short form) - Note Progress Note: Renal Follow up for CRISTELA on CKD Pt seen and examined at the bedside complains of feeling sleepy denies any N/V, confusion, weakness Urine output remains minimal Vital Signs Temperature 98 F 09/26/16 07:50 Pulse Rate 80 09/26/16 10:55 Respiratory Rate 20 09/26/16 08:13 Blood Pressure 110/62 09/26/16 07:50 O2 Sat by Pulse Oximetry (%) 100 09/26/16 10:55 Intake & Output 09/23/16 09/24/16 09/25/16 09/26/16 23:59 23:59 23:59 23:59 Intake Total 970 960 760 220 Output Total 320 300 250 Balance 970 640 460 -30 Weight 304 lb 8 oz 304 lb 8 oz 302 lb 2 oz Gen: NAD, awake and alert CVS: RRR, No M/R Lungs: Dec BS at the lung bases Abd: soft NT/ND, Obese Ext: 2+ lymphedema, R BKA CBC, BMP 09/26/16 06:00 09/26/16 06:00 Laboratory Tests 09/26/16 09/26/16 06:00 06:00 Phosphorus 5.3 H Magnesium 2.8 H Albumin 2.1 L TSH 21.10 H D Current Medications Acetaminophen (Tylenol -) 650 mg PO DAILY PRN PRN Reason: PAIN LEVEL 6-10 Last Admin: 09/25/16 04:06 Dose: 650 mg Albuterol Sulfate (Ventolin 0.083% Nebulizer Soln -) 1 amp NEB Q6HPO [facility] BEDS AT [facility] Last Admin: 09/26/16 11:38 Dose: 1 amp Aspirin (Ecotrin -) 81 mg PO DAILY [facility]S [facility] Last Admin: 09/26/16 10:07 Dose: 81 mg Atorvastatin Calcium (Lipitor -) 20 mg PO HS [facility] 234 [facility]S [facility] Last Admin: 09/25/16 22:00 Dose: 20 mg Calcium Acetate (Phoslo -) 667 mg PO TIDCM [facility] 234 B[facility]S [facility] Last Admin: 09/26/16 11:52 Dose: 667 mg Cyanocobalamin (Vitamin B12 -) 1,000 mcg PO DAILY [facility] 234 B[facility]S [facility] Last Admin: 09/26/16 10:00 Dose: 1,000 mcg Docusate Sodium (Colace -) 200 mg PO DAILY [facility] 234 [facility]S [facility] Last Admin: 09/26/16 10:00 Dose: 200 mg Epoetin Dawood (Procrit -) 10,000 unit SQ Rice@10 [facility] 234 [facility]S [facility] Last Admin: 09/22/16 23:08 Dose: 10,000 unit Fluticasone Propionate (Flonase -) 1 spray NS DAILY [facility]S [facility] Last Admin: 09/26/16 10:04 Dose: 1 puff Folic Acid (Folic Acid -) 1 mg PO DAILY [facility] Last Admin: 09/26/16 10:07 Dose: 1 mg Gabapentin (Neurontin -) 300 mg PO QID [facility] Last Admin: 09/26/16 10:01 Dose: 300 mg Heparin Sodium (Porcine) (Heparin -) 5,000 unit SQ BID [facility]S [facility] Last Admin: 09/26/16 10:00 Dose: 5,000 unit Ceftriaxone Sodium (Rocephin 1gm Ivpb (Pre-Docked)) 50 mls @ 100 mls/hr IVPB DAILY [facility]S [facility] Last Admin: 09/26/16 10:00 Dose: 100 mls/hr Insulin Aspart (Novolog Vial Sliding Scale -) 1 vial SQ [facility] PRN Reason: Protocol Last Admin: 09/26/16 11:53 Dose: 2 units Insulin Detemir (Levemir Vial) 10 units SQ ACBK [facility] 234 B[facility]S [facility] Last Admin: 09/26/16 06:41 Dose: 10 units Levothyroxine Sodium (Synthroid -) 75 mcg PO ACBK [facility] 234 B[facility]S [facility] Loratadine (Claritin -) 10 mg PO DAILY PRN PRN Reason: FOR ITCHING Metoclopramide HCl (Reglan -) 5 mg PO ACHS [facility]S [facility] Last Admin: 09/26/16 11:52 Dose: 5 mg Metoprolol Succinate (Toprol Xl -) 25 mg PO DAILY [facility] 234 [facility]S [facility] Last Admin: 09/26/16 10:00 Dose: 25 mg Mupirocin (Bactroban 2% Cream -) 1 applic TP BID [facility] Last Admin: 09/26/16 10:02 Dose: 1 applic Nystatin (Mycostatin Cream -) 3 applic TP DAILY [facility] Last Admin: 09/26/16 10:04 Dose: 3 applic Nystatin (Nystatin Oral Suspension -) 500,000 units PO Q6HPO [facility] 234 B[facility]S [facility] Last Admin: 09/26/16 11:52 Dose: 500,000 units Oxycodone HCl (Roxicodone -) 5 mg PO Q6H PRN PRN Reason: PAIN Last Admin: 09/25/16 04:05 Dose: 5 mg Polyethylene Glycol (Miralax (For Daily Use) -) 17 gm PO BID [facility]S [facility] Last Admin: 09/26/16 10:07 Dose: 17 gm Senna (Senna -) 2 tab PO HS [facility] 234 [facility]S [facility] Last Admin: 09/25/16 22:00 Dose: 2 tab A/P 71 year old woman with PMhx of CKD stage 3 w/o significant proteinuria, CHF, COPD, PVD, Chronic LE lymphedema, IDDM, CAD who presented wit fever with BUN/Cr of 85/1.5 and K of 5..5. #CRISTELA on CKD with hyperkalemia Cr 2.3 todays and pt continues to have oliguric urine output BUN trended up however ? reason as pt w/o greast response to lasix as evidened by urine output will hold further diuretics today Trend BUN/Cr no acute indication for dialysis at this time continue Low K diet #Fever/UTI continue Abx as per ID #Normocytic Anemia iron saturation is 20% Ferritin is 750 (high as acute phase reactant) s/p Venofer x 3 continue Epogen 3x weekly no indication for transfusion Thank you Lambert Mcnamara DO
--- NOTE | 2016-09-26 12:26 | PN ---
Progress Note (short form) - Note Progress Note: CC: trop elevation S: no cp, palps, sob, dizziness Current Medications Generic Name Dose Route Start Last Admin Trade Name Freq PRN Reason Stop Dose Admin Acetaminophen 650 mg 09/16/16 19:39 09/25/16 04:06 Tylenol - PO 650 mg DAILY PRN Administration PAIN LEVEL 6-10 Albuterol Sulfate 1 amp 09/16/16 19:15 09/26/16 11:38 Ventolin 0.083% Nebulizer Soln - NEB 1 amp Q6HPO [facility] Administration Aspirin 81 mg 09/17/16 10:00 09/26/16 10:07 Ecotrin - PO 81 mg DAILY [facility] Administration Atorvastatin Calcium 20 mg 09/16/16 22:00 09/25/16 22:00 Lipitor - PO 20 mg HS [facility] Administration Calcium Acetate 667 mg 09/17/16 08:00 09/26/16 11:52 Phoslo - PO 667 mg TIDCM [facility] Administration Cyanocobalamin 1,000 mcg 09/17/16 10:00 09/26/16 10:00 Vitamin B12 - PO 1,000 mcg DAILY [facility] Administration Docusate Sodium 200 mg 09/17/16 10:00 09/26/16 10:00 Colace - PO 200 mg DAILY [facility] Administration Epoetin Dawood 10,000 unit 09/22/16 10:00 09/22/16 23:08 Procrit - SQ 10,000 unit Rice@10 [facility] Administration Fluticasone Propionate 1 spray 09/17/16 10:00 09/26/16 10:04 Flonase - NS 1 puff DAILY [facility] Administration Folic Acid 1 mg 09/17/16 10:00 09/26/16 10:07 Folic Acid - PO 1 mg DAILY [facility] Administration Gabapentin 300 mg 09/16/16 22:00 09/26/16 10:01 Neurontin - PO 300 mg QID [facility] Administration Heparin Sodium (Porcine) 5,000 unit 09/16/16 22:00 09/26/16 10:00 Heparin - SQ 5,000 unit BID [facility] Administration Ceftriaxone Sodium 50 mls @ 100 mls/hr 09/19/16 10:45 09/26/16 10:00 Rocephin 1gm Ivpb (Pre-Docked) IVPB 100 mls/hr DAILY [facility] Administration Insulin Aspart 1 vial 09/16/16 22:00 09/26/16 11:53 Novolog Vial Sliding Scale - SQ 2 units ACHS [facility] Administration Protocol Insulin Detemir 10 units 09/17/16 10:18 09/26/16 06:41 Levemir Vial SQ 10 units ACBK [facility] Administration Levothyroxine Sodium 75 mcg 09/26/16 09:36 Synthroid - PO ACBK [facility] Loratadine 10 mg 09/26/16 09:37 Claritin - PO DAILY PRN FOR ITCHING Metoclopramide HCl 5 mg 09/16/16 22:00 09/26/16 11:52 Reglan - PO 5 mg ACHS [facility] Administration Metoprolol Succinate 25 mg 09/18/16 11:59 09/26/16 10:00 Toprol Xl - PO 25 mg DAILY [facility] Administration Mupirocin 1 applic 09/16/16 22:00 09/26/16 10:02 Bactroban 2% Cream - TP 1 applic BID [facility] Administration Nystatin 3 applic 09/17/16 10:00 09/26/16 10:04 Mycostatin Cream - TP 3 applic DAILY [facility] Administration Nystatin 500,000 units 09/21/16 12:00 09/26/16 11:52 Nystatin Oral Suspension - PO 500,000 units Q6HPO [facility] Administration Oxycodone HCl 5 mg 09/16/16 19:11 09/25/16 04:05 Roxicodone - PO 5 mg Q6H PRN Administration PAIN Polyethylene Glycol 17 gm 09/16/16 22:00 09/26/16 10:07 Miralax (For Daily Use) - PO 17 gm BID [facility] Administration Senna 2 tab 09/16/16 22:00 09/25/16 22:00 Senna - PO 2 tab HS [facility] Administration Vital Signs Period Temp Pulse Resp BP Sys/Hagan Pulse Ox Last 24 Hr 97.5 F-98.4 F 64-84 20-22 106-134/56-67 93-100 NAD, obese, jvd tds RRR nl s1, s2 2/6 murmur at sternal border and apex scattered rhonchi bl, poor effort + bs soft obese edematous nt +distension diminished distal pulses. s/p lt bka trace le edema erythema/venous stasis changes/skin excoriations and peau d' orange changes of LE skin aaox3 no jaundice diaphoresis CBC, BMP 06/01/17 06:00 09/26/16 06:00 EKG here: stach, 105 bpm. poor r wave progression. non- specific tw changes, no sig change from prior tele: sr, occ pvcs Echo 07/01/2016: Mild decr EF. paradoxical septal motion with mild HK of anteroseptum. RV not seen. 1+ mr/tr. mild (although MG only 12 mmHg). Echo 06/2015: mild-mod decr EF--global; nl RV; mild LAE; mild-mod MR/TR; RVSP 30- 40; small peric effusion; + pleural eff cxr: tds a/p: 71 yo with h/o HFpEF, CAD s/p IA, HTN, HL, pHTN, MIRIAM, o2 dep't copd, CKD , IDDM, hypothyroid and chronic LLE cellulitis/lt foot gangrene s/p L BKA, here with n/v. intermediate troponin elevation/CAD -has previously refused stress tests. h/o prior NSTEMI x 2 (2012, 2014) in setting of demand (sepsis/anemia). Con't JUAN ANTONIO, but current elevation likely in setting of demand. -cath previously deferred due to: pt preference; hi risk of vascular complications (obese habitus), hi risk of BERNARDINO, and h/o recurrent anemia, possible occult GIB -currently without anginal sx's. EKG unchanged. Con't statin, BB, asa. imdur held for hypotension. -MATEO deferred previously due to labile creat's--no change chronic foot wound, gangrene, now s/p bka 07/03/16: - per pmd/vascular chronic HFpEF/pulm HTN/venous ins'y/acute on chronic hypoxic and hypercapneic resp failure: - mild systolic dysfunction, presumed RV dysfunction. - pt currently on IVF with fever/infection. holding diuresis for now. Patient with chronic third spacing and total body volume overload, but intermittently with vascular depletion. - 09/21: IVF stopped today per renal, diuresis per renal. - 09/22: bun improved after stopping IVF yesterday. starting torsemide per renal. - 09/23: slight improvement in bmp on torsemide. diuretic management per renal. - 09/24: ongoing improvement in bmp and lfts. torsemide dose uptitrated this morning to 60 mg/day. diuretic management per renal. - 09/25: cont torsemide - 09/26: poor urine output so given test dose of iv lasix yesterday, renal following - Abdomen tense and distended, abd u/s --> no ascites PSVT: -likely brief run of ATach on prior tele , no recurrence -con't bb as bp tolerates VTach: -17 beat run of NSVT on prior tele (previous admit), no recurrence -K/Mag repletion prn -con't bb as bp tolerates CKD - cr above baseline, no sig improvement with ivfs/holding diuretics - now back on diuretics to see if any improvement - renal following MIRIAM - on bipap qhs. anemia: -chronic, baseline runs 8s-9s; -freq acute drops/PRBCs in past; currently above baseline. HTN: -controlled. monitor for hypotension in setting of infection - con't home bp meds, as bp tolerates. imdur held for hypotension.
[2016-09-26] MEDS: ATORVASTATIN CA 20 MG TABLET (FP) PO SCH (22:23)
[2016-09-26] MEDS: SENNOSIDES 8.6MG TABLET (FP) PO SCH (22:23)
[2016-09-27] MEDS: ALBUTEROL SO4 0.083% IH SOL 2.5 MG/3 ML VIAL.NEB. NEB SCH ×5 (00:14→23:53)
[2016-09-27] MEDS: oxyCODONE HCL 5 MG TABLET PO PRN ×2 (01:26→09:39)
[2016-09-27] MEDS: NYSTATIN 500,000 UNITS/5 ML SUSPENSION PO SCH ×4 (01:27→17:50)
[2016-09-27] MEDS: INSULIN SLIDING SCALE (NOVOLOG) 1 VIAL SQ SCH ×4 (06:50→22:46)
[2016-09-27] MEDS: LEVOTHYROXINE NA 75 MCG TABLET (FP) PO SCH (06:50)
[2016-09-27] MEDS: INSULIN DETEMIR 100 UNITS/ML MDV SQ SCH (06:50)
[2016-09-27] MEDS: METOCLOPRAMIDE HCL 10 MG TABLET (FP) PO SCH ×4 (06:50→22:44)
[2016-09-27 07:29] LABS: BASOPHIL 1.3 % (0-2.0); EOSINOPHIL 1.9 % (0-4.5); MCH 29.7 pg (25.7-33.7); MCHC 31.2 g/dl (32.0-36.0); MEAN CELL VOLUME 95.1 fl (80-96); MEAN PLT VOLUME 8.6 fl (7.5-11.1); NEUTROPHILS 82.9 % (42.8-82.8); PLATELET COUNT 235 K/MM3 (134-434); RDW 16.5 % (11.6-15.6); WHITE BLOOD COUNT 9.2 K/mm3 (4.0-10.0)
[2016-09-27 07:46] LABS: CALCIUM 8.6 mg/dL (8.5-10.1); CREATININE 2.2 mg/dL (0.55-1.02); MAGNESIUM 2.7 mg/dL (1.8-2.4); PHOSPHOROUS 5.7 mg/dL (2.5-4.9)
[2016-09-27] MEDS: CALCIUM ACETATE 667 MG CAPSULE (FP) PO SCH ×3 (08:56→17:50)
[2016-09-27] MEDS ORDERED: PANTOPRAZOLE SODIUM 40 MG in SODIUM CHLORIDE 100 ML IVPB ONE (09:27)
[2016-09-27] MEDS: HEPARIN NA (PORCINE) 5,000 UNITS/ML 1ML VIAL SQ SCH ×2 (09:37→22:44)
[2016-09-27] MEDS: CYANOCOBALAMIN 1,000 MCG TABLET (FP) PO SCH (09:38)
[2016-09-27] MEDS: CEFTRIAXONE 50 ML IVPB SCH (09:38)
[2016-09-27] MEDS: FOLIC ACID 1 MG TABLET (FP) PO SCH (09:38)
[2016-09-27] MEDS: ASPIRIN COATED 81 MG TABLET.EC PO SCH (09:38)
[2016-09-27] MEDS: GABAPENTIN 300 MG CAPSULE (FP) PO SCH ×4 (09:38→22:45)
[2016-09-27] MEDS: METOPROLOL SUCCINATE 25 MG TAB.SR.24H (FP) PO SCH (09:38)
[2016-09-27] MEDS: DOCUSATE SODIUM 100 MG CAPSULE (FP) PO SCH (09:38)
[2016-09-27] MEDS: ACETAMINOPHEN 325 MG TABLET (FP) PO PRN (09:39)
[2016-09-27] MEDS: NYSTATIN 100,000 UNIT/GM TOPICAL CREAM 15 GM TUBE TP SCH (09:41)
[2016-09-27] MEDS: FLUTICASONE PROP 0.05% 16 GM NASAL SPRAY NS SCH (09:41)
[2016-09-27] MEDS: MUPIROCIN CA 2% TOPICAL CREAM 15 GM TUBE TP SCH ×2 (09:42→22:43)
[2016-09-27] MEDS: POLYETHYLENE GLYCOL 3350 119 GM BTL PO SCH ×2 (09:47→22:45)
[2016-09-27] MEDS ORDERED: PANTOPRAZOLE SODIUM 100 ML IVPB ONE (09:55)
--- NOTE | 2016-09-27 10:50 | PN ---
Progress Note (short form) - Note Progress Note: Renal Follow up for CRISTELA on CKD Pt seen and examined at the bedside complains of tenderness in LE appears to be in a lot of pain with just gentle manipulation of LE denies sob, chest pain UO was 450 yesterday despite no diuretics Vital Signs Temperature 98.8 F 09/27/16 07:17 Pulse Rate 79 09/27/16 07:17 Respiratory Rate 18 09/27/16 07:17 Blood Pressure 118/67 09/27/16 07:17 O2 Sat by Pulse Oximetry (%) 97 09/27/16 07:14 Intake & Output 09/24/16 09/25/16 09/26/16 09/27/16 23:59 23:59 23:59 23:59 Intake Total 960 760 640 110 Output Total 320 300 470 180 Balance 640 460 170 -70 Weight 304 lb 8 oz 302 lb 2 oz Gen: NAD CVS: RRR, No M/R Lungs: Dec BS at the lung bases Abd: soft NT/ND, Obese Ext: 2+ lymphedema, R BKA CBC, BMP 09/27/16 05:35 09/27/16 05:35 Laboratory Tests 09/27/16 05:35 Calcium 8.6 Phosphorus 5.7 H Magnesium 2.7 H Current Medications Acetaminophen (Tylenol -) 650 mg PO DAILY PRN PRN Reason: PAIN LEVEL 6-10 Last Admin: 09/27/16 09:39 Dose: 650 mg Albuterol Sulfate (Ventolin 0.083% Nebulizer Soln -) 1 amp NEB Q6HPO [facility] Last Admin: 09/27/16 06:55 Dose: 1 amp Aspirin (Ecotrin -) 81 mg PO DAILY [facility] Last Admin: 09/27/16 09:38 Dose: 81 mg Atorvastatin Calcium (Lipitor -) 20 mg PO HS [facility] Last Admin: 09/26/16 22:23 Dose: 20 mg Calcium Acetate (Phoslo -) 667 mg PO TIDCM [facility] Last Admin: 09/27/16 08:56 Dose: 667 mg Cyanocobalamin (Vitamin B12 -) 1,000 mcg PO DAILY [facility] Last Admin: 09/27/16 09:38 Dose: 1,000 mcg Docusate Sodium (Colace -) 200 mg PO DAILY [facility] Last Admin: 09/27/16 09:38 Dose: 200 mg Epoetin Dawood (Procrit -) 10,000 unit SQ Rice@10 [facility] Last Admin: 09/22/16 23:08 Dose: 10,000 unit Fluticasone Propionate (Flonase -) 1 spray NS DAILY [facility] Last Admin: 09/27/16 09:41 Dose: 1 spray Folic Acid (Folic Acid -) 1 mg PO DAILY [facility] Last Admin: 09/27/16 09:38 Dose: 1 mg Gabapentin (Neurontin -) 300 mg PO QID [facility] Last Admin: 09/27/16 09:38 Dose: 300 mg Heparin Sodium (Porcine) (Heparin -) 5,000 unit SQ BID [facility] Last Admin: 09/27/16 09:37 Dose: 5,000 unit Ceftriaxone Sodium (Rocephin 1gm Ivpb (Pre-Docked)) 50 mls @ 100 mls/hr IVPB DAILY [facility] Last Admin: 09/27/16 09:38 Dose: 100 mls/hr Insulin Aspart (Novolog Vial Sliding Scale -) 1 vial SQ [facility] PRN Reason: Protocol Last Admin: 09/27/16 06:50 Dose: Not Given Insulin Detemir (Levemir Vial) [address] [facility] Last Admin: 09/27/16 06:50 Dose: Not Given Levothyroxine Sodium (Synthroid -) 75 mcg PO ACBK [facility] Last Admin: 09/27/16 06:50 Dose: 75 mcg Loratadine (Claritin -) 10 mg PO DAILY PRN PRN Reason: FOR ITCHING Metoclopramide HCl (Reglan -) 5 mg PO ACHS [facility] Last Admin: 09/27/16 06:50 Dose: 5 mg Metoprolol Succinate (Toprol Xl -) 25 mg PO DAILY [facility] Last Admin: 09/27/16 09:38 Dose: 25 mg Mupirocin (Bactroban 2% Cream -) 1 applic TP BID [facility] Last Admin: 09/27/16 09:42 Dose: 1 applic Nystatin (Mycostatin Cream -) 3 applic TP DAILY [facility] Last Admin: 09/27/16 09:41 Dose: 3 applic Nystatin (Nystatin Oral Suspension -) 500,000 units PO Q6HPO [facility] Last Admin: 09/27/16 06:49 Dose: 500,000 units Oxycodone HCl (Roxicodone -) 5 mg PO Q6H PRN PRN Reason: PAIN Last Admin: 09/27/16 09:39 Dose: 5 mg Polyethylene Glycol (Miralax (For Daily Use) -) 17 gm PO BID [facility] Last Admin: 09/27/16 09:47 Dose: 17 gm Senna (Senna -) 2 tab PO HS [facility] Last Admin: 09/26/16 22:23 Dose: 2 tab A/P 71 year old woman with PMhx of CKD stage 3 w/o significant proteinuria, CHF, COPD, PVD, Chronic LE lymphedema, IDDM, CAD who presented wit fever with BUN/Cr of 85/1.5 and K of 5..5. #CRISTELA on CKD with hyperkalemia Renal function w/o signifincat change has better urine output over the past 24 hours will continue to monitor off diuretics and IVF if renal function remains stable can start Moderate dose of Torsemide as pt with significant LE edema no indication for [employer] (mental status appears improved from yesterday) #Fever/UTI continue Abx as per ID #Normocytic Anemia s/p IV iron supplementation continue Epogen TIW no acute indication for transfusion Thank you Lambert Mcnamara DO
--- NOTE | 2016-09-27 11:28 | PN ---
Progress Note (short form) - Note Progress Note: CC: trop elevation S: no cp, palps, sob, dizziness, still with leg pain Current Medications Generic Name Dose Route Start Last Admin Trade Name Cheryle PRN Reason Stop Dose Admin Acetaminophen 650 mg 09/16/16 19:39 09/27/16 09:39 Tylenol - PO 650 mg DAILY PRN Administration PAIN LEVEL 6-10 Albuterol Sulfate 1 amp 09/16/16 19:15 09/27/16 06:55 Ventolin 0.083% Nebulizer Soln - NEB 1 amp Q6HPO [facility] Administration Aspirin 81 mg 09/17/16 10:00 09/27/16 09:38 Ecotrin - PO 81 mg DAILY [facility] Administration Atorvastatin Calcium 20 mg 09/16/16 22:00 09/26/16 22:23 Lipitor - PO 20 mg HS [facility] Administration Calcium Acetate 667 mg 09/17/16 08:00 09/27/16 08:56 Phoslo - PO 667 mg TIDCM [facility] Administration Cyanocobalamin 1,000 mcg 09/17/16 10:00 09/27/16 09:38 Vitamin B12 - PO 1,000 mcg DAILY [facility] Administration Docusate Sodium 200 mg 09/17/16 10:00 09/27/16 09:38 Colace - PO 200 mg DAILY [facility] Administration Epoetin Dawood 10,000 unit 09/22/16 10:00 09/22/16 23:08 Procrit - SQ 10,000 unit Rice@10 [facility] Administration Fluticasone Propionate 1 spray 09/17/16 10:00 09/27/16 09:41 Flonase - NS 1 spray DAILY [facility] Administration Folic Acid 1 mg 09/17/16 10:00 09/27/16 09:38 Folic Acid - PO 1 mg DAILY [facility] Administration Gabapentin 300 mg 09/16/16 22:00 09/27/16 09:38 Neurontin - PO 300 mg QID [facility] Administration Heparin Sodium (Porcine) 5,000 unit 09/16/16 22:00 09/27/16 09:37 Heparin - SQ 5,000 unit BID [facility] Administration Ceftriaxone Sodium 50 mls @ 100 mls/hr 09/19/16 10:45 09/27/16 09:38 Rocephin 1gm Ivpb (Pre-Docked) IVPB 100 mls/hr DAILY [facility] Administration Insulin Aspart 1 vial 09/16/16 22:00 09/27/16 06:50 Novolog Vial Sliding Scale - SQ Not Given ACHS [facility]PL[facility] Protocol Insulin Detemir 10 units 09/17/16 10:18 09/27/16 06:50 Levemir Vial SQ Not Given ACBK REPLAC[facility] Levothyroxine Sodium 75 mcg 09/26/16 09:36 09/27/16 06:50 Synthroid - PO 75 mcg ACBK [facility] Administration Loratadine 10 mg 09/26/16 09:37 Claritin - PO DAILY PRN FOR ITCHING Metoclopramide HCl 5 mg 09/16/16 22:00 09/27/16 06:50 Reglan - PO 5 mg ACHS [facility] Administration Metoprolol Succinate 25 mg 09/18/16 11:59 09/27/16 09:38 Toprol Xl - PO 25 mg DAILY [facility] Administration Mupirocin 1 applic 09/16/16 22:00 09/27/16 09:42 Bactroban 2% Cream - TP 1 applic BID [facility] Administration Nystatin 3 applic 09/17/16 10:00 09/27/16 09:41 Mycostatin Cream - TP 3 applic DAILY [facility] Administration Nystatin 500,000 units 09/21/16 12:00 09/27/16 06:49 Nystatin Oral Suspension - PO 500,000 units Q6HPO [facility] Administration Oxycodone HCl 5 mg 09/16/16 19:11 09/27/16 09:39 Roxicodone - PO 5 mg Q6H PRN Administration PAIN Polyethylene Glycol 17 gm 09/16/16 22:00 09/27/16 09:47 Miralax (For Daily Use) - PO 17 gm BID [facility] Administration Senna 2 tab 09/16/16 22:00 09/26/16 22:23 Senna - PO 2 tab HS [facility] Administration Vital Signs Period Temp Pulse Resp BP Sys/Hagan Pulse Ox Last 24 Hr 97.3 F-98.9 F 71-81 18-20 112-130/50-70 96-98 NAD, obese, jvd tds RRR nl s1, s2 2/6 murmur at sternal border and apex scattered rhonchi bl, poor effort + bs soft obese edematous nt +distension diminished distal pulses. s/p lt bka trace le edema erythema/venous stasis changes/skin excoriations and peau d' orange changes of LE skin aaox3 no jaundice diaphoresis CBC, BMP 09/27/16 05:35 09/27/16 05:35 EKG here: stach, 105 bpm. poor r wave progression. non- specific tw changes, no sig change from prior tele: sr, occ pvcs Echo 07/01/2016: Mild decr EF. paradoxical septal motion with mild HK of anteroseptum. RV not seen. 1+ mr/tr. mild (although MG only 12 mmHg). Echo 06/2015: mild-mod decr EF--global; nl RV; mild LAE; mild-mod MR/TR; RVSP 30- 40; small peric effusion; + pleural eff cxr: tds a/p: 71 yo with h/o HFpEF, CAD s/p MS, HTN, HL, pHTN, MIRIAM, o2 dep't copd, CKD , IDDM, hypothyroid and chronic LLE cellulitis/lt foot gangrene s/p L BKA, here with n/v. intermediate troponin elevation/CAD -has previously refused stress tests. h/o prior NSTEMI x 2 (2012, 2014) in setting of demand (sepsis/anemia). Con't JUAN ANTONIO, but current elevation likely in setting of demand. -cath previously deferred due to: pt preference; hi risk of vascular complications (obese habitus), hi risk of BERNARDINO, and h/o recurrent anemia, possible occult GIB -currently without anginal sx's. EKG unchanged. Con't statin, BB, asa. imdur held for hypotension. -MATEO deferred previously due to labile creat's--no change chronic foot wound, gangrene, now s/p bka 07/03/16: - per pmd/vascular chronic HFpEF/pulm HTN/venous ins'y/acute on chronic hypoxic and hypercapneic resp failure: - mild systolic dysfunction, presumed RV dysfunction. - pt currently on IVF with fever/infection. holding diuresis for now. Patient with chronic third spacing and total body volume overload, but intermittently with vascular depletion. - 09/21: IVF stopped today per renal, diuresis per renal. - 09/22: bun improved after stopping IVF yesterday. starting torsemide per renal. - 09/23: slight improvement in bmp on torsemide. diuretic management per renal. - 09/24: ongoing improvement in bmp and lfts. torsemide dose uptitrated this morning to 60 mg/day. diuretic management per renal. - 09/25: cont torsemide - 09/26: poor urine output so given test dose of iv lasix yesterday, renal following - 09/27: still with poor uop but bun/cr slightly better today. plan is to hold diuretics and ivfs for now and monitor cr. - Abdomen tense and distended, abd u/s --> no ascites PSVT: -likely brief run of ATach on prior tele , no recurrence -con't bb as bp tolerates VTach: -17 beat run of NSVT on prior tele (previous admit), no recurrence -K/Mag repletion prn -con't bb as bp tolerates CKD - cr above baseline - plan is to hold diuretics and ivfs for now and monitor cr. - renal following MIRIAM - on bipap qhs. anemia: -chronic, baseline runs 8s-9s; -freq acute drops/PRBCs in past; currently above baseline. HTN: -controlled. monitor for hypotension in setting of infection - con't home bp meds, as bp tolerates. imdur held for hypotension.
--- NOTE | 2016-09-27 11:50 | PN ---
Progress Note, Physician Chief Complaint: awake alert but confused; higher BUN/creat - Current Medication List Current Medications: Active Medications Acetaminophen (Tylenol -) 650 mg PO DAILY PRN PRN Reason: PAIN LEVEL 6-10 Last Admin: 09/27/16 09:39 Dose: 650 mg Albuterol Sulfate (Ventolin 0.083% Nebulizer Soln -) 1 amp NEB Q6HPO [facility] Last Admin: 09/27/16 10:45 Dose: 1 amp Aspirin (Ecotrin -) 81 mg PO DAILY [facility] Last Admin: 09/27/16 09:38 Dose: 81 mg Atorvastatin Calcium (Lipitor -) 20 mg PO HS [facility] Last Admin: 09/26/16 22:23 Dose: 20 mg Calcium Acetate (Phoslo -) 667 mg PO TIDCM [facility] Last Admin: 09/27/16 08:56 Dose: 667 mg Cyanocobalamin (Vitamin B12 -) 1,000 mcg PO DAILY [facility] Last Admin: 09/27/16 09:38 Dose: 1,000 mcg Docusate Sodium (Colace -) 200 mg PO DAILY [facility] Last Admin: 09/27/16 09:38 Dose: 200 mg Epoetin Dawood (Procrit -) 10,000 unit SQ Rice@10 [facility] Last Admin: 09/22/16 23:08 Dose: 10,000 unit Fluticasone Propionate (Flonase -) 1 spray NS DAILY [facility] Last Admin: 09/27/16 09:41 Dose: 1 spray Folic Acid (Folic Acid -) 1 mg PO DAILY [facility] Last Admin: 09/27/16 09:38 Dose: 1 mg Gabapentin (Neurontin -) 300 mg PO QID [facility] Last Admin: 09/27/16 09:38 Dose: 300 mg Heparin Sodium (Porcine) (Heparin -) 5,000 unit SQ BID [facility] Last Admin: 09/27/16 09:37 Dose: 5,000 unit Ceftriaxone Sodium (Rocephin 1gm Ivpb (Pre-Docked)) 50 mls @ 100 mls/hr IVPB DAILY [facility] Last Admin: 09/27/16 09:38 Dose: 100 mls/hr Insulin Aspart (Novolog Vial Sliding Scale -) 1 vial SQ ACHS [facility] PRN Reason: Protocol Last Admin: 09/27/16 06:50 Dose: Not Given Insulin Detemir (Levemir Vial) 10 units SQ ACBK [facility] Last Admin: 09/27/16 06:50 Dose: Not Given Levothyroxine Sodium (Synthroid -) 75 mcg PO ACBK [facility] Last Admin: 09/27/16 06:50 Dose: 75 mcg Loratadine (Claritin -) 10 mg PO DAILY PRN PRN Reason: FOR ITCHING Metoclopramide HCl (Reglan -) 5 mg PO ACHS [facility] Last Admin: 09/27/16 06:50 Dose: 5 mg Metoprolol Succinate (Toprol Xl -) 25 mg PO DAILY [facility] Last Admin: 09/27/16 09:38 Dose: 25 mg Mupirocin (Bactroban 2% Cream -) 1 applic TP BID [facility] Last Admin: 09/27/16 09:42 Dose: 1 applic Nystatin (Mycostatin Cream -) 3 applic TP DAILY [facility] Last Admin: 09/27/16 09:41 Dose: 3 applic Nystatin (Nystatin Oral Suspension -) 500,000 units PO Q6HPO [facility] Last Admin: 09/27/16 06:49 Dose: 500,000 units Oxycodone HCl (Roxicodone -) 5 mg PO Q6H PRN PRN Reason: PAIN Last Admin: 09/27/16 09:39 Dose: 5 mg Polyethylene Glycol (Miralax (For Daily Use) -) 17 gm PO BID [facility] Last Admin: 09/27/16 09:47 Dose: 17 gm Senna (Senna -) 2 tab PO HS [facility] Last Admin: 09/26/16 22:23 Dose: 2 tab - Objective Vital Signs: Vital Signs Temperature 98.8 F 09/27/16 07:17 Pulse Rate 80 09/27/16 10:25 Respiratory Rate 18 09/27/16 07:17 Blood Pressure 118/67 09/27/16 07:17 O2 Sat by Pulse Oximetry (%) 97 09/27/16 10:45 Constitutional: Yes: No Distress, Calm Eyes: Yes: Conjunctiva Clear HENT: Yes: Atraumatic Neck: Yes: Supple Cardiovascular: Yes: Regular Rate and Rhythm Respiratory: Yes: Diminished Gastrointestinal: Yes: Soft, Abdomen, Obese Genitourinary: No: Hematuria Edema: Yes (RLE lymphedema, rash ) Integumentary: Yes: Rash, Venous Stasis Changes Neurological: Yes: Alert. No: WNL (functional quadriplegia), Oriented Psychiatric: Yes: Alert. No: Oriented, Agitated Labs: CBC, BMP 09/27/16 05:35 09/27/16 05:35 INR, PTT INR 1.22 (0.82-1.09) H 09/16/16 10:53 - ....Imaging Other: Report Reviewed Assessment/Plan The patient is a 71 year old female brought via EMS from [facility], with a significant past medical history of Hypothyroidism, Diabetes, HTN, CHF, [place] x2, (on home O2, 2L), left BKA, anemia, essential tremors, CAD, GERD, CKD and obesity, admitted with UTI, RLE cellulitis, neck and R axilla fungic rash improved; sepsis, low BP/ r/o septic shock; R foot cold r/o ischemia - surgery f /u ARF oliguric - renal f/u; broad spectrum ATB per ID CHF - cardiology f/u; s/p 1 dose lasix IV, more uremic; higher BUN/creat and K 5.4 - give kayexalate d/w renal dr Mcnamara, f/u labs DVT falls decubs and aspiration PFX HOB BGM, DM control; DNR DNI no dyalsis per pt's prior and current wishes prognosis poor, called sister d/w pt and staff
--- NOTE | 2016-09-27 14:18 | PN ---
Progress Note, Physician History of Present Illness: Lethargic Afebrile R LE remains erythematous Renal function stabilized - Current Medication List Current Medications: Active Medications Acetaminophen (Tylenol -) 650 mg PO DAILY PRN PRN Reason: PAIN LEVEL 6-10 Last Admin: 09/27/16 09:39 Dose: 650 mg Albuterol Sulfate (Ventolin 0.083% Nebulizer Soln -) 1 amp NEB Q6HPO [facility] Last Admin: 09/27/16 10:45 Dose: 1 amp Aspirin (Ecotrin -) 81 mg PO DAILY [facility] Last Admin: 09/27/16 09:38 Dose: 81 mg Atorvastatin Calcium (Lipitor -) 20 mg PO HS [facility] Last Admin: 09/26/16 22:23 Dose: 20 mg Calcium Acetate (Phoslo -) 667 mg PO TIDCM [facility] Last Admin: 09/27/16 12:06 Dose: 667 mg Cyanocobalamin (Vitamin B12 -) 1,000 mcg PO DAILY [facility] Last Admin: 09/27/16 09:38 Dose: 1,000 mcg Docusate Sodium (Colace -) 200 mg PO DAILY [facility] Last Admin: 09/27/16 09:38 Dose: 200 mg Epoetin Dawood (Procrit -) 10,000 unit SQ Rice@10 [facility] Last Admin: 09/22/16 23:08 Dose: 10,000 unit Fluticasone Propionate (Flonase -) 1 spray NS DAILY [facility] Last Admin: 09/27/16 09:41 Dose: 1 spray Folic Acid (Folic Acid -) 1 mg PO DAILY [facility] Last Admin: 09/27/16 09:38 Dose: 1 mg Gabapentin (Neurontin -) 300 mg PO QID [facility] Last Admin: 09/27/16 13:40 Dose: 300 mg Heparin Sodium (Porcine) (Heparin -) 5,000 unit SQ BID [facility] Last Admin: 09/27/16 09:37 Dose: 5,000 unit Ceftriaxone Sodium (Rocephin 1gm Ivpb (Pre-Docked)) 50 mls @ 100 mls/hr IVPB DAILY [facility] Last Admin: 09/27/16 09:38 Dose: 100 mls/hr Insulin Aspart (Novolog Vial Sliding Scale -) 1 vial SQ ACHS [facility] PRN Reason: Protocol Last Admin: 09/27/16 12:04 Dose: Not Given Insulin Detemir (Levemir Vial) 10 units SQ ACBK [facility] Last Admin: 09/27/16 06:50 Dose: Not Given Levothyroxine Sodium (Synthroid -) 75 mcg PO ACBK [facility] Last Admin: 09/27/16 06:50 Dose: 75 mcg Loratadine (Claritin -) 10 mg PO DAILY PRN PRN Reason: FOR ITCHING Metoclopramide HCl (Reglan -) 5 mg PO ACHS [facility] Last Admin: 09/27/16 12:06 Dose: 5 mg Metoprolol Succinate (Toprol Xl -) 25 mg PO DAILY [facility] Last Admin: 09/27/16 09:38 Dose: 25 mg Mupirocin (Bactroban 2% Cream -) 1 applic TP BID [facility] Last Admin: 09/27/16 09:42 Dose: 1 applic Nystatin (Mycostatin Cream -) 3 applic TP DAILY [facility] Last Admin: 09/27/16 09:41 Dose: 3 applic Nystatin (Nystatin Oral Suspension -) 500,000 units PO Q6HPO [facility] Last Admin: 09/27/16 12:06 Dose: 500,000 units Oxycodone HCl (Roxicodone -) 5 mg PO Q6H PRN PRN Reason: PAIN Last Admin: 09/27/16 09:39 Dose: 5 mg Polyethylene Glycol (Miralax (For Daily Use) -) 17 gm PO BID [facility] Last Admin: 09/27/16 09:47 Dose: 17 gm Senna (Senna -) 2 tab PO HS [facility] Last Admin: 09/26/16 22:23 Dose: 2 tab - Objective Vital Signs: Vital Signs Temperature 98.8 F 09/27/16 07:17 Pulse Rate 80 09/27/16 10:25 Respiratory Rate 18 09/27/16 07:17 Blood Pressure 118/67 09/27/16 07:17 O2 Sat by Pulse Oximetry (%) 97 09/27/16 10:45 Constitutional: Yes: No Distress Eyes: Yes: Conjunctiva Clear Cardiovascular: Yes: Regular Rate and Rhythm, S1, S2 Respiratory: Yes: CTA Bilaterally Gastrointestinal: Yes: Normal Bowel Sounds, Soft, Abdomen, Obese. No: Tenderness Extremities: Yes: Other (+ R LE edema/ erythema + erythema at L BKA stump site) Labs: CBC, BMP 09/27/16 05:35 09/27/16 05:35 INR, PTT INR 1.22 (0.82-1.09) H 09/16/16 10:53 Assessment/Plan UTI /Possible sepsis secondary to UTI- Morganella leukocytosis Thrombocytopenia-resolved Azotemia cellulitis R LE, recurrent Continue Ceftriaxone 1gm IVPB q24h Check random vanco level
[2016-09-27] MEDS: ATORVASTATIN CA 20 MG TABLET (FP) PO SCH (22:45)
[2016-09-27] MEDS: SENNOSIDES 8.6MG TABLET (FP) PO SCH (22:45)
[2016-09-28] MEDS: INSULIN SLIDING SCALE (NOVOLOG) 1 VIAL SQ SCH ×4 (06:23→22:28)
[2016-09-28] MEDS: NYSTATIN 500,000 UNITS/5 ML SUSPENSION PO SCH ×4 (06:24→17:17)
[2016-09-28] MEDS: INSULIN DETEMIR 100 UNITS/ML MDV SQ SCH (06:25)
[2016-09-28] MEDS: METOCLOPRAMIDE HCL 10 MG TABLET (FP) PO SCH ×4 (06:26→22:24)
[2016-09-28] MEDS: LEVOTHYROXINE NA 75 MCG TABLET (FP) PO SCH (06:26)
[2016-09-28] MEDS: ALBUTEROL SO4 0.083% IH SOL 2.5 MG/3 ML VIAL.NEB. NEB SCH ×3 (07:08→17:45)
--- NOTE | 2016-09-28 07:30 | PN ---
Progress Note (short form) - Note Progress Note: Renal Follow up for CRISTELA on CKD Pt seen and examined at the bedside reports feeling weak denies any fevers or chills no sob get neb tx now Vital Signs Temperature 97.8 F 09/27/16 22:00 Pulse Rate 75 09/27/16 22:00 Respiratory Rate 18 09/27/16 22:00 Blood Pressure 114/54 09/27/16 22:00 O2 Sat by Pulse Oximetry (%) 98 09/27/16 21:00 Intake & Output 09/25/16 09/26/16 09/27/16 09/28/16 23:59 23:59 23:59 23:59 Intake Total 760 640 210 Output Total 300 470 380 Balance 460 170 -170 Weight 302 lb 2 oz Gen: NAD CVS: RRR, No M/R Lungs: Dec BS at the lung bases Abd: soft NT/ND, Obese Ext: 2+ lymphedema, R BKA CBC, BMP 09/27/16 05:35 09/27/16 05:35 Laboratory Tests 09/27/16 05:35 Calcium 8.6 Phosphorus 5.7 H Magnesium 2.7 H todays labs pending Current Medications Acetaminophen (Tylenol -) 650 mg PO DAILY PRN PRN Reason: PAIN LEVEL 6-10 Last Admin: 09/27/16 09:39 Dose: 650 mg Albuterol Sulfate (Ventolin 0.083% Nebulizer Soln -) 1 amp NEB Q6HPO [facility] Last Admin: 09/28/16 07:08 Dose: 1 amp Aspirin (Ecotrin -) 81 mg PO DAILY [facility] Last Admin: 09/27/16 09:38 Dose: 81 mg Atorvastatin Calcium (Lipitor -) 20 mg PO HS [facility] Last Admin: 09/27/16 22:45 Dose: 20 mg Calcium Acetate (Phoslo -) 667 mg PO TIDCM [facility] Last Admin: 09/27/16 17:50 Dose: 667 mg Cyanocobalamin (Vitamin B12 -) 1,000 mcg PO DAILY [facility] Last Admin: 09/27/16 09:38 Dose: 1,000 mcg Docusate Sodium (Colace -) 200 mg PO DAILY [facility] Last Admin: 09/27/16 09:38 Dose: 200 mg Epoetin Dawood (Procrit -) 10,000 unit SQ Rice@10 [facility] Last Admin: 09/22/16 23:08 Dose: 10,000 unit Fluticasone Propionate (Flonase -) 1 spray NS DAILY [facility] Last Admin: 09/27/16 09:41 Dose: 1 spray Folic Acid (Folic Acid -) 1 mg PO DAILY [facility] Last Admin: 09/27/16 09:38 Dose: 1 mg Gabapentin (Neurontin -) 300 mg PO QID [facility] Last Admin: 09/27/16 22:45 Dose: 300 mg Heparin Sodium (Porcine) (Heparin -) 5,000 unit SQ BID [facility] Last Admin: 09/27/16 22:44 Dose: 5,000 unit Ceftriaxone Sodium (Rocephin 1gm Ivpb (Pre-Docked)) 50 mls @ 100 mls/hr IVPB DAILY [facility] Last Admin: 09/27/16 09:38 Dose: 100 mls/hr Insulin Aspart (Novolog Vial Sliding Scale -) 1 vial SQ [facility] PRN Reason: Protocol Last Admin: 09/28/16 06:23 Dose: Not Given Insulin Detemir (Levemir Vial) 10 units SQ ACBK [facility] Last Admin: 09/28/16 06:25 Dose: 10 units Levothyroxine Sodium (Synthroid -) 75 mcg PO ACBK [facility] Last Admin: 09/28/16 06:26 Dose: 75 mcg Loratadine (Claritin -) 10 mg PO DAILY PRN PRN Reason: FOR ITCHING Metoclopramide HCl (Reglan -) 5 mg PO ACHS [facility] Last Admin: 09/28/16 06:26 Dose: 5 mg Metoprolol Succinate (Toprol Xl -) 25 mg PO DAILY [facility] Last Admin: 09/27/16 09:38 Dose: 25 mg Mupirocin (Bactroban 2% Cream -) 1 applic TP BID [facility] Last Admin: 09/27/16 22:43 Dose: 1 applic Nystatin (Mycostatin Cream -) 3 applic TP DAILY [facility] Last Admin: 09/27/16 09:41 Dose: 3 applic Nystatin (Nystatin Oral Suspension -) 500,000 units PO Q6HPO [facility] Last Admin: 09/28/16 06:24 Dose: 500,000 units Oxycodone HCl (Roxicodone -) 5 mg PO Q6H PRN PRN Reason: PAIN Last Admin: 09/27/16 09:39 Dose: 5 mg Polyethylene Glycol (Miralax (For Daily Use) -) 17 gm PO BID [facility] Last Admin: 09/27/16 22:45 Dose: 17 gm Senna (Senna -) 2 tab PO HS [facility] Last Admin: 09/27/16 22:45 Dose: 2 tab A/P 71 year old woman with PMhx of CKD stage 3 w/o significant proteinuria, CHF, COPD, PVD, Chronic LE lymphedema, IDDM, CAD who presented wit fever with BUN/Cr of 85/1.5 and K of 5..5. #CRISTELA on CKD with hyperkalemia todays labs pending if renal function stable or improved can start Torsemide 40mg for management of volume overload #Fever/UTI continue Abx as per ID #Normocytic Anemia s/p IV iron supplementation continue Epogen TIW no acute indication for transfusion Thank you Lambert Mcnamara DO
[2016-09-28 08:35] LABS: CALCIUM 8.6 mg/dL (8.5-10.1); COCKROFT - GAULT 40.4685; CREATININE 2.7 mg/dL (0.55-1.02); MAGNESIUM 2.7 mg/dL (1.8-2.4); PHOSPHOROUS 6.1 mg/dL (2.5-4.9)
[2016-09-28] MEDS: ASPIRIN COATED 81 MG TABLET.EC PO SCH (10:55)
[2016-09-28] MEDS: CALCIUM ACETATE 667 MG CAPSULE (FP) PO SCH ×3 (10:55→17:17)
[2016-09-28] MEDS: METOPROLOL SUCCINATE 25 MG TAB.SR.24H (FP) PO SCH (10:55)
[2016-09-28] MEDS: FOLIC ACID 1 MG TABLET (FP) PO SCH (10:55)
[2016-09-28] MEDS: GABAPENTIN 300 MG CAPSULE (FP) PO SCH ×4 (10:55→22:23)
[2016-09-28] MEDS: HEPARIN NA (PORCINE) 5,000 UNITS/ML 1ML VIAL SQ SCH ×2 (10:55→22:24)
[2016-09-28] MEDS: CYANOCOBALAMIN 1,000 MCG TABLET (FP) PO SCH (10:56)
[2016-09-28] MEDS: oxyCODONE HCL 5 MG TABLET PO PRN (10:56)
[2016-09-28] MEDS: ACETAMINOPHEN 325 MG TABLET (FP) PO PRN (10:57)
[2016-09-28] MEDS: POLYETHYLENE GLYCOL 3350 119 GM BTL PO SCH ×2 (10:57→22:23)
[2016-09-28] MEDS: DOCUSATE SODIUM 100 MG CAPSULE (FP) PO SCH (10:58)
[2016-09-28] MEDS: MUPIROCIN CA 2% TOPICAL CREAM 15 GM TUBE TP SCH ×2 (10:58→22:25)
[2016-09-28] MEDS: FLUTICASONE PROP 0.05% 16 GM NASAL SPRAY NS SCH (10:59)
--- NOTE | 2016-09-28 11:33 | PN ---
Progress Note, Physician Chief Complaint: on 8w, arousable but more confused and lethargic - Current Medication List Current Medications: Active Medications Acetaminophen (Tylenol -) 650 mg PO DAILY PRN PRN Reason: PAIN LEVEL 6-10 Last Admin: 09/28/16 10:57 Dose: 650 mg Albuterol Sulfate (Ventolin 0.083% Nebulizer Soln -) 1 amp NEB Q6HPO [facility] Last Admin: 09/28/16 11:28 Dose: 1 amp Aspirin (Ecotrin -) 81 mg PO DAILY [facility] Last Admin: 09/28/16 10:55 Dose: 81 mg Atorvastatin Calcium (Lipitor -) 20 mg PO HS [facility] Last Admin: 09/27/16 22:45 Dose: 20 mg Calcium Acetate (Phoslo -) 667 mg PO TIDCM [facility] Last Admin: 09/28/16 10:59 Dose: 667 mg Cyanocobalamin (Vitamin B12 -) 1,000 mcg PO DAILY [facility] Last Admin: 09/28/16 10:56 Dose: 1,000 mcg Docusate Sodium (Colace -) 200 mg PO DAILY [facility] Last Admin: 09/28/16 10:58 Dose: 200 mg Epoetin Dawood (Procrit -) 10,000 unit SQ Rice@10 [facility] Last Admin: 09/22/16 23:08 Dose: 10,000 unit Fluticasone Propionate (Flonase -) 1 spray NS DAILY [facility] Last Admin: 09/28/16 10:59 Dose: 1 spray Folic Acid (Folic Acid -) 1 mg PO DAILY [facility] Last Admin: 09/28/16 10:55 Dose: 1 mg Gabapentin (Neurontin -) 300 mg PO QID [facility] Last Admin: 09/28/16 10:55 Dose: 300 mg Heparin Sodium (Porcine) (Heparin -) 5,000 unit SQ BID [facility] Last Admin: 09/28/16 10:55 Dose: 5,000 unit Ceftriaxone Sodium (Rocephin 1gm Ivpb (Pre-Docked)) 50 mls @ 100 mls/hr IVPB DAILY [facility] Last Admin: 09/27/16 09:38 Dose: 100 mls/hr Insulin Aspart (Novolog Vial Sliding Scale -) 1 vial SQ ACHS [facility] PRN Reason: Protocol Last Admin: 09/28/16 06:23 Dose: Not Given Insulin Detemir (Levemir Vial) 10 units SQ ACBK [facility] Last Admin: 09/28/16 06:25 Dose: 10 units Levothyroxine Sodium (Synthroid -) 75 mcg PO ACBK [facility] Last Admin: 09/28/16 06:26 Dose: 75 mcg Loratadine (Claritin -) 10 mg PO DAILY PRN PRN Reason: FOR ITCHING Metoclopramide HCl (Reglan -) 5 mg PO ACHS [facility] Last Admin: 09/28/16 10:56 Dose: 5 mg Metoprolol Succinate (Toprol Xl -) 25 mg PO DAILY [facility] Last Admin: 09/28/16 10:55 Dose: 25 mg Mupirocin (Bactroban 2% Cream -) 1 applic TP BID [facility] Last Admin: 09/28/16 10:58 Dose: 1 applic Nystatin (Mycostatin Cream -) 3 applic TP DAILY [facility] Last Admin: 09/27/16 09:41 Dose: 3 applic Nystatin (Nystatin Oral Suspension -) 500,000 units PO Q6HPO [facility] Last Admin: 09/28/16 06:24 Dose: 500,000 units Oxycodone HCl (Roxicodone -) 5 mg PO Q6H PRN PRN Reason: PAIN Last Admin: 09/28/16 10:56 Dose: 5 mg Polyethylene Glycol (Miralax (For Daily Use) -) 17 gm PO BID [facility] Last Admin: 09/28/16 10:57 Dose: 17 gm Senna (Senna -) 2 tab PO HS [facility] Last Admin: 09/27/16 22:45 Dose: 2 tab - Objective Vital Signs: Vital Signs Temperature 98.5 F 09/28/16 06:00 Pulse Rate 62 09/28/16 11:27 Respiratory Rate 20 09/28/16 06:00 Blood Pressure 113/52 09/28/16 06:00 O2 Sat by Pulse Oximetry (%) 98 09/28/16 11:27 Constitutional: Yes: Calm Eyes: Yes: Conjunctiva Clear HENT: Yes: Atraumatic Neck: Yes: Supple Cardiovascular: Yes: Regular Rate and Rhythm Respiratory: Yes: Diminished Gastrointestinal: Yes: Soft, Abdomen, Obese Genitourinary: No: Hematuria Edema: Yes Integumentary: Yes: Rash, Venous Stasis Changes Neurological: Yes: Alert. No: Oriented Psychiatric: Yes: Alert. No: Oriented, Agitated Labs: CBC, BMP 09/27/16 05:35 09/28/16 06:30 INR, PTT INR 1.22 (0.82-1.09) H 09/16/16 10:53 - ....Imaging Other: Report Reviewed Assessment/Plan The patient is a 71 year old female brought via EMS from [facility], with a significant past medical history of Hypothyroidism, Diabetes, HTN, CHF, [place] x2, (on home O2, 2L), left BKA, anemia, essential tremors, CAD, GERD, CKD and obesity, admitted with UTI, RLE cellulitis, neck and R axilla fungic rash improved; sepsis, low BP/ r/o septic shock; R foot cold r/o ischemia - surgery f /u ARF oliguric - renal f/u; broad spectrum ATB per ID CHF - cardiology f/u; s/p 1 dose lasix IV, more uremic; higher BUN/creat and K 5.5 - give kayexalate f/u with renal dr Mcnamara, f/u labs DVT falls decubs and aspiration PFX HOB BGM, DM control; DNR DNI no dyalsis per pt's prior and current wishes prognosis poor, d/w sister d/w pt and staff
[2016-09-28] MEDS ORDERED: SODIUM CHLORIDE 500 ML IV STA (11:37)
[2016-09-28] MEDS: CEFTRIAXONE 50 ML IVPB SCH (12:06)
[2016-09-28] MEDS: NYSTATIN 100,000 UNIT/GM TOPICAL CREAM 15 GM TUBE TP SCH (12:06)
[2016-09-28] MEDS ORDERED: SODIUM POLYSTYRENE SULFONATE 15 GM/60 ML BOTTLE PO ONE (12:30)
[2016-09-28 12:44] LABS: CALCIUM 8.2 mg/dL (8.5-10.1); CREATININE 2.6 mg/dL (0.55-1.02)
[2016-09-28] MEDS: SODIUM CHLORIDE 1,000 ML IV SCH (13:32)
[2016-09-28] MEDS: ATORVASTATIN CA 20 MG TABLET (FP) PO SCH (22:23)
[2016-09-28] MEDS: SENNOSIDES 8.6MG TABLET (FP) PO SCH (22:24)
[2016-09-29] MEDS: ALBUTEROL SO4 0.083% IH SOL 2.5 MG/3 ML VIAL.NEB. NEB SCH ×5 (00:10→23:31)
[2016-09-29] MEDS: SODIUM CHLORIDE 1,000 ML IV SCH (03:37)
[2016-09-29] MEDS: INSULIN DETEMIR 100 UNITS/ML MDV SQ SCH (06:19)
[2016-09-29] MEDS: INSULIN SLIDING SCALE (NOVOLOG) 1 VIAL SQ SCH ×4 (06:19→22:37)
[2016-09-29] MEDS: LEVOTHYROXINE NA 75 MCG TABLET (FP) PO SCH (06:20)
[2016-09-29] MEDS: METOCLOPRAMIDE HCL 10 MG TABLET (FP) PO SCH ×4 (06:20→22:24)
[2016-09-29] MEDS: NYSTATIN 500,000 UNITS/5 ML SUSPENSION PO SCH ×4 (06:21→18:02)
--- NOTE | 2016-09-29 07:48 | PN ---
Progress Note (short form) - Note Progress Note: Renal Follow up for CRISTELA on CKD Seen and examined at the bedside has pain in left foot no sob or chest pain started on IVF yesterday after labs showed worsening kidney function and K urine output remains oliguric Vital Signs Temperature 97 F L 09/29/16 06:00 Pulse Rate 63 09/29/16 06:00 Respiratory Rate 20 09/29/16 06:00 Blood Pressure 127/46 09/29/16 06:00 O2 Sat by Pulse Oximetry (%) 98 09/28/16 11:27 Intake & Output 09/26/16 09/27/16 09/28/16 09/29/16 23:59 23:59 23:59 23:59 Intake Total 426 473 0332 1200 Output Total 470 380 350 100 Balance 170 -170 1120 1100 Weight 300 lb 2 oz 300 lb 2 oz Gen: Mild distress from pain CVS: RRR, No M/R Lungs: Dec BS at the lung bases Abd: soft NT/ND, Obese Ext: 2+ lymphedema, R BKA Todays labs pending Current Medications Acetaminophen (Tylenol -) 650 mg PO DAILY PRN PRN Reason: PAIN LEVEL 6-10 Last Admin: 09/28/16 10:57 Dose: 650 mg Albuterol Sulfate (Ventolin 0.083% Nebulizer Soln -) 1 amp NEB Q6HPO [facility] Last Admin: 09/29/16 06:43 Dose: 1 amp Aspirin (Ecotrin -) 81 mg PO DAILY [facility] Last Admin: 09/28/16 10:55 Dose: 81 mg Atorvastatin Calcium (Lipitor -) 20 mg PO HS [facility] Last Admin: 09/28/16 22:23 Dose: 20 mg Calcium Acetate (Phoslo -) 667 mg PO TIDCM [facility] Last Admin: 09/28/16 17:17 Dose: 667 mg Cyanocobalamin (Vitamin B12 -) 1,000 mcg PO DAILY [facility] Last Admin: 09/28/16 10:56 Dose: 1,000 mcg Docusate Sodium (Colace -) 200 mg PO DAILY [facility] Last Admin: 09/28/16 10:58 Dose: 200 mg Epoetin Dawood (Procrit -) 10,000 unit SQ Rice@10 [facility] Last Admin: 09/22/16 23:08 Dose: 10,000 unit Fluticasone Propionate (Flonase -) 1 spray NS DAILY [facility] Last Admin: 09/28/16 10:59 Dose: 1 spray Folic Acid (Folic Acid -) 1 mg PO DAILY [facility] Last Admin: 09/28/16 10:55 Dose: 1 mg Gabapentin (Neurontin -) 300 mg PO QID [facility] Last Admin: 09/28/16 22:23 Dose: 300 mg Heparin Sodium (Porcine) (Heparin -) 5,000 unit SQ BID [facility] Last Admin: 09/28/16 22:24 Dose: 5,000 unit Ceftriaxone Sodium (Rocephin 1gm Ivpb (Pre-Docked)) 50 mls @ 100 mls/hr IVPB DAILY [facility] Last Admin: 09/28/16 12:06 Dose: 100 mls/hr Sodium Chloride (Normal Saline -) 1,000 mls @ 83 mls/hr IV ASDIR [facility] Last Admin: 09/29/16 03:37 Dose: 83 mls/hr Insulin Aspart (Novolog Vial Sliding Scale -) 1 vial SQ [facility] PRN Reason: Protocol Last Admin: 09/29/16 06:19 Dose: Not Given Insulin Detemir (Levemir Vial) 10 units SQ BK [facility] Last Admin: 09/29/16 06:19 Dose: 10 units Levothyroxine Sodium (Synthroid -) 75 mcg PO ACBK [facility] Last Admin: 09/29/16 06:20 Dose: 75 mcg Loratadine (Claritin -) 10 mg PO DAILY PRN PRN Reason: FOR ITCHING Metoclopramide HCl (Reglan -) 5 mg PO ACHS [facility] Last Admin: 09/29/16 06:20 Dose: 5 mg Metoprolol Succinate (Toprol Xl -) 25 mg PO DAILY [facility] Last Admin: 09/28/16 10:55 Dose: 25 mg Mupirocin (Bactroban 2% Cream -) 1 applic TP BID [facility] Last Admin: 09/28/16 22:25 Dose: 1 applic Nystatin (Mycostatin Cream -) 3 applic TP DAILY [facility] Last Admin: 09/28/16 12:06 Dose: 1 applic Nystatin (Nystatin Oral Suspension -) 500,000 units PO Q6HPO [facility] Last Admin: 09/29/16 06:21 Dose: 500,000 units Oxycodone HCl (Roxicodone -) 5 mg PO Q6H PRN PRN Reason: PAIN Last Admin: 09/28/16 10:56 Dose: 5 mg Polyethylene Glycol (Miralax (For Daily Use) -) 17 gm PO BID [facility] Last Admin: 09/28/16 22:23 Dose: 17 gm Senna (Senna -) 2 tab PO HS [facility] Last Admin: 09/28/16 22:24 Dose: 2 tab A/P 71 year old woman with PMhx of CKD stage 3 w/o significant proteinuria, CHF, COPD, PVD, Chronic LE lymphedema, IDDM, CAD who presented wit fever with BUN/Cr of 85/1.5 and K of 5..5. #CRISTELA on CKD with hyperkalemia CRISTELA of unclear etiolgy, given high BUN/Cr ration suspect intravascualar volume depletion however given pts body size and lymphedema very difficult to estimate true volume status on IVF, but urine output remains poor awaiting todays labs, will titrate IVF based on labs #Fever/UTI continue Abx as per ID #Normocytic Anemia s/p IV iron supplementation continue Epogen TIW no acute indication for transfusion pt with guarded prognosis, not a good canidate for [employer] given co-morbid conditions Thank you Lambert Mcnamara DO
[2016-09-29] MEDS: CALCIUM ACETATE 667 MG CAPSULE (FP) PO SCH ×3 (07:49→18:01)
[2016-09-29] MEDS: oxyCODONE HCL 5 MG TABLET PO PRN (07:49)
[2016-09-29] MEDS: ACETAMINOPHEN 325 MG TABLET (FP) PO PRN (07:51)
[2016-09-29 08:45] LABS: CALCIUM 8.1 mg/dL (8.5-10.1); COCKROFT - GAULT 40.4685; CREATININE 2.7 mg/dL (0.55-1.02); MAGNESIUM 2.7 mg/dL (1.8-2.4); PHOSPHOROUS 6.4 mg/dL (2.5-4.9)
[2016-09-29 08:51] LABS: BASOPHIL 0.7 % (0-2.0); EOSINOPHIL 1.7 % (0-4.5); MCH 29.4 pg (25.7-33.7); MCHC 31.1 g/dl (32.0-36.0); MEAN CELL VOLUME 94.5 fl (80-96); MEAN PLT VOLUME 8.4 fl (7.5-11.1); NEUTROPHILS 79.6 % (42.8-82.8); PLATELET COUNT 255 K/MM3 (134-434); RDW 16.5 % (11.6-15.6); WHITE BLOOD COUNT 9.5 K/mm3 (4.0-10.0)
[2016-09-29] MEDS ORDERED: PT OWN MED DRAWER 7, Y5N ONE (08:57)
[2016-09-29] MEDS: FLUTICASONE PROP 0.05% 16 GM NASAL SPRAY NS SCH (09:05)
[2016-09-29] MEDS: NYSTATIN 100,000 UNIT/GM TOPICAL CREAM 15 GM TUBE TP SCH (09:05)
[2016-09-29] MEDS: MUPIROCIN CA 2% TOPICAL CREAM 15 GM TUBE TP SCH ×2 (09:05→22:24)
[2016-09-29] MEDS: CEFTRIAXONE 50 ML IVPB SCH (09:06)
[2016-09-29] MEDS: ASPIRIN COATED 81 MG TABLET.EC PO SCH (09:06)
[2016-09-29] MEDS: FOLIC ACID 1 MG TABLET (FP) PO SCH (09:06)
[2016-09-29] MEDS: HEPARIN NA (PORCINE) 5,000 UNITS/ML 1ML VIAL SQ SCH ×2 (09:06→22:24)
[2016-09-29] MEDS: METOPROLOL SUCCINATE 25 MG TAB.SR.24H (FP) PO SCH (09:06)
[2016-09-29] MEDS: DOCUSATE SODIUM 100 MG CAPSULE (FP) PO SCH (09:06)
[2016-09-29] MEDS: CYANOCOBALAMIN 1,000 MCG TABLET (FP) PO SCH (09:08)
[2016-09-29] MEDS: GABAPENTIN 300 MG CAPSULE (FP) PO SCH ×4 (09:08→22:23)
[2016-09-29] MEDS: POLYETHYLENE GLYCOL 3350 119 GM BTL PO SCH ×2 (09:10→22:23)
[2016-09-29] MEDS: EPOETIN ALFA 10,000 UNIT/1 ML VIAL SQ SCH (12:31)
--- NOTE | 2016-09-29 12:53 | PN ---
Progress Note, Physician Chief Complaint: in bed NAD has constant legs pains both L stump rash and edema; RLE lymphedema rash blisters and woozing fluid - Current Medication List Current Medications: Active Medications Acetaminophen (Tylenol -) 650 mg PO DAILY PRN PRN Reason: PAIN LEVEL 6-10 Last Admin: 09/29/16 07:51 Dose: 650 mg Albuterol Sulfate (Ventolin 0.083% Nebulizer Soln -) 1 amp NEB Q6HPO [facility] Last Admin: 09/29/16 11:02 Dose: 1 amp Aspirin (Ecotrin -) 81 mg PO DAILY [facility] Last Admin: 09/29/16 09:06 Dose: 81 mg Atorvastatin Calcium (Lipitor -) 20 mg PO HS [facility] Last Admin: 09/28/16 22:23 Dose: 20 mg Calcium Acetate (Phoslo -) 667 mg PO TIDCM [facility] Last Admin: 09/29/16 12:32 Dose: 667 mg Cyanocobalamin (Vitamin B12 -) 1,000 mcg PO DAILY [facility] Last Admin: 09/29/16 09:08 Dose: 1,000 mcg Docusate Sodium (Colace -) 200 mg PO DAILY [facility] Last Admin: 09/29/16 09:06 Dose: 200 mg Epoetin Dawood (Procrit -) 10,000 unit SQ Rice@10 [facility] Last Admin: 09/29/16 12:31 Dose: 10,000 unit Fluticasone Propionate (Flonase -) 1 spray NS DAILY [facility] Last Admin: 09/29/16 09:05 Dose: 1 spray Folic Acid (Folic Acid -) 1 mg PO DAILY [facility] Last Admin: 09/29/16 09:06 Dose: 1 mg Gabapentin (Neurontin -) 300 mg PO QID [facility] Last Admin: 09/29/16 09:08 Dose: 300 mg Heparin Sodium (Porcine) (Heparin -) 5,000 unit SQ BID [facility] Last Admin: 09/29/16 09:06 Dose: 5,000 unit Ceftriaxone Sodium (Rocephin 1gm Ivpb (Pre-Docked)) 50 mls @ 100 mls/hr IVPB DAILY [facility] Last Admin: 09/29/16 09:06 Dose: 100 mls/hr Insulin Aspart (Novolog Vial Sliding Scale -) 1 vial SQ ACHS [facility] PRN Reason: Protocol Last Admin: 09/29/16 12:31 Dose: Not Given Insulin Detemir (Levemir Vial) 10 units SQ ACBK [facility] Last Admin: 09/29/16 06:19 Dose: 10 units Levothyroxine Sodium (Synthroid -) 75 mcg PO ACBK [facility] Last Admin: 09/29/16 06:20 Dose: 75 mcg Loratadine (Claritin -) 10 mg PO DAILY PRN PRN Reason: FOR ITCHING Metoclopramide HCl (Reglan -) 5 mg PO ACHS [facility] Last Admin: 09/29/16 12:32 Dose: 5 mg Metoprolol Succinate (Toprol Xl -) 25 mg PO DAILY [facility] Last Admin: 09/29/16 09:06 Dose: 25 mg Mupirocin (Bactroban 2% Cream -) 1 applic TP BID [facility] Last Admin: 09/29/16 09:05 Dose: 1 applic Nystatin (Mycostatin Cream -) 3 applic TP DAILY [facility] Last Admin: 09/29/16 09:05 Dose: 3 applic Nystatin (Nystatin Oral Suspension -) 500,000 units PO Q6HPO [facility] Last Admin: 09/29/16 12:32 Dose: 500,000 units Oxycodone HCl (Roxicodone -) 5 mg PO Q6H PRN PRN Reason: PAIN Last Admin: 09/29/16 07:49 Dose: 5 mg Polyethylene Glycol (Miralax (For Daily Use) -) 17 gm PO BID [facility] Last Admin: 09/29/16 09:10 Dose: 17 gm Senna (Senna -) 2 tab PO HS [facility] Last Admin: 09/28/16 22:24 Dose: 2 tab - Objective Vital Signs: Vital Signs Temperature 97 F L 09/29/16 06:00 Pulse Rate 79 09/29/16 11:01 Respiratory Rate 20 09/29/16 06:00 Blood Pressure 127/46 09/29/16 06:00 O2 Sat by Pulse Oximetry (%) 93 L 09/29/16 11:01 Constitutional: Yes: No Distress, Calm Eyes: Yes: Conjunctiva Clear HENT: Yes: Atraumatic Neck: Yes: Supple Cardiovascular: Yes: Regular Rate and Rhythm Respiratory: Yes: Diminished Gastrointestinal: Yes: Soft, Abdomen, Obese. No: Distention, Tenderness Genitourinary: No: Hematuria Musculoskeletal: No: Joint Stiffness, Joint Swelling Extremities: Yes: Erythema. No: Cold, Cool Edema: Yes Integumentary: Yes: Rash, Venous Stasis Changes Neurological: Yes: Alert, Oriented. No: WNL (functional quadriplegia) Psychiatric: Yes: Alert, Oriented. No: Agitated, Suicidal Ideation Labs: CBC, BMP 09/29/16 06:30 09/29/16 06:30 INR, PTT INR 1.22 (0.82-1.09) H 09/16/16 10:53 - ....Imaging Other: Report Reviewed Assessment/Plan The patient is a 71 year old female brought via EMS from [facility], with a significant past medical history of Hypothyroidism, Diabetes, HTN, CHF, [place] x2, (on home O2, 2L), left BKA, anemia, essential tremors, CAD, GERD, CKD and obesity, admitted with UTI, RLE cellulitis, neck and R axilla fungic rash improved; sepsis, low BP/ r/o septic shock; R foot cold r/o ischemia - surgery f /u; uremic and oliguric broad spectrum ATB per ID CHF - cardiology f/u and f/u with renal dr Mcnamara, f/u labs DVT falls decubs and aspiration PFX HOB BGM, DM control; DNR DNI no dyalsis per pt's prior and current wishes paaliative care eval prognosis poor, d/w sister d/w pt and staff
--- NOTE | 2016-09-29 13:05 | PN ---
Progress Note, Physician History of Present Illness: C/O R leg pain No c/o fever/ chills - Current Medication List Current Medications: Active Medications Acetaminophen (Tylenol -) 650 mg PO DAILY PRN PRN Reason: PAIN LEVEL 6-10 Last Admin: 09/29/16 07:51 Dose: 650 mg Albuterol Sulfate (Ventolin 0.083% Nebulizer Soln -) 1 amp NEB Q6HPO [facility] Last Admin: 09/29/16 11:02 Dose: 1 amp Aspirin (Ecotrin -) 81 mg PO DAILY [facility] Last Admin: 09/29/16 09:06 Dose: 81 mg Atorvastatin Calcium (Lipitor -) 20 mg PO HS [facility] Last Admin: 09/28/16 22:23 Dose: 20 mg Calcium Acetate (Phoslo -) 667 mg PO TIDCM [facility] Last Admin: 09/29/16 12:32 Dose: 667 mg Cyanocobalamin (Vitamin B12 -) 1,000 mcg PO DAILY [facility] Last Admin: 09/29/16 09:08 Dose: 1,000 mcg Docusate Sodium (Colace -) 200 mg PO DAILY [facility] Last Admin: 09/29/16 09:06 Dose: 200 mg Epoetin Dawood (Procrit -) 10,000 unit SQ Rice@10 [facility] Last Admin: 09/29/16 12:31 Dose: 10,000 unit Fluticasone Propionate (Flonase -) 1 spray NS DAILY [facility] Last Admin: 09/29/16 09:05 Dose: 1 spray Folic Acid (Folic Acid -) 1 mg PO DAILY [facility] Last Admin: 09/29/16 09:06 Dose: 1 mg Gabapentin (Neurontin -) 300 mg PO QID [facility] Last Admin: 09/29/16 09:08 Dose: 300 mg Heparin Sodium (Porcine) (Heparin -) 5,000 unit SQ BID [facility] Last Admin: 09/29/16 09:06 Dose: 5,000 unit Ceftriaxone Sodium (Rocephin 1gm Ivpb (Pre-Docked)) 50 mls @ 100 mls/hr IVPB DAILY [facility] Last Admin: 09/29/16 09:06 Dose: 100 mls/hr Vancomycin HCl 1,000 mg/ (Dextrose) 250 mls @ 200 mls/hr IVPB ONCE ONE Stop: 09/29/16 14:15 Insulin Aspart (Novolog Vial Sliding Scale -) 1 vial SQ ACHS [facility] PRN Reason: Protocol Last Admin: 09/29/16 12:31 Dose: Not Given Insulin Detemir (Levemir Vial) 10 units SQ BK [facility] Last Admin: 09/29/16 06:19 Dose: 10 units Levothyroxine Sodium (Synthroid -) 75 mcg PO ACBK [facility] Last Admin: 09/29/16 06:20 Dose: 75 mcg Loratadine (Claritin -) 10 mg PO DAILY PRN PRN Reason: FOR ITCHING Metoclopramide HCl (Reglan -) 5 mg PO [facility] Last Admin: 09/29/16 12:32 Dose: 5 mg Metoprolol Succinate (Toprol Xl -) 25 mg PO DAILY [facility] Last Admin: 09/29/16 09:06 Dose: 25 mg Mupirocin (Bactroban 2% Cream -) 1 applic TP BID [facility] Last Admin: 09/29/16 09:05 Dose: 1 applic Nystatin (Mycostatin Cream -) 3 applic TP DAILY [facility] Last Admin: 09/29/16 09:05 Dose: 3 applic Nystatin (Nystatin Oral Suspension -) 500,000 units PO Q6HPO [facility] Last Admin: 09/29/16 12:32 Dose: 500,000 units Oxycodone HCl (Roxicodone -) 5 mg PO Q6H PRN PRN Reason: PAIN Last Admin: 09/29/16 07:49 Dose: 5 mg Polyethylene Glycol (Miralax (For Daily Use) -) 17 gm PO BID [facility] Last Admin: 09/29/16 09:10 Dose: 17 gm Senna (Senna -) 2 tab PO HS [facility] Last Admin: 09/28/16 22:24 Dose: 2 tab - Objective Vital Signs: Vital Signs Temperature 97 F L 09/29/16 06:00 Pulse Rate 79 09/29/16 11:01 Respiratory Rate 20 09/29/16 06:00 Blood Pressure 127/46 09/29/16 06:00 O2 Sat by Pulse Oximetry (%) 93 L 09/29/16 11:01 Constitutional: Yes: No Distress, Obese Eyes: Yes: Conjunctiva Clear Cardiovascular: Yes: Regular Rate and Rhythm, S1, S2 Respiratory: Yes: CTA Bilaterally Gastrointestinal: Yes: Normal Bowel Sounds, Soft, Abdomen, Obese. No: Tenderness Extremities: Yes: Other (R LE edema/ erythema Erythema at L BKA stump site) Labs: CBC, BMP 09/29/16 06:30 09/29/16 06:30 INR, PTT INR 1.22 (0.82-1.09) H 09/16/16 10:53 Assessment/Plan UTI /Possible sepsis secondary to UTI- Morganella Thrombocytopenia-resolved Azotemia cellulitis R LE, recurrent Continue Ceftriaxone 1gm IVPB q24h Redose vancomycin x1
[2016-09-29] MEDS ORDERED: VANCOMYCIN 1,000 MG in VANCOMYCIN 1 GRAM (PRE-DOCKED) 250 ML IVPB ONE (13:30)
[2016-09-29 16:06] LABS: URINE APPEARANCE SLCLOUDY; URINE BILIRUBIN NEGATIVE (NEGATIVE); URINE COLOR YELLOW; URINE GLUCOSE (UA) NEGATIVE (NEGATIVE); URINE KETONE NEGATIVE (NEGATIVE); URINE NITRITE NEGATIVE (NEGATIVE); URINE PROTEIN NEGATIVE (NEGATIVE); URINE UROBILINOGEN NEGATIVE E.U./dl (0.2-1.0)
[2016-09-29 16:16] LABS: URINE BLOOD 2+ (NEGATIVE); URINE LEUK ESTERASE 2+ (NEGATIVE)
[2016-09-29 16:24] LABS: URINE BACTERIA RARE /hpf (NONE SEEN); URINE HYALINE CAST 14 /lpf; URINE MUCUS RARE; URINE RBC 69 /hpf (0-3); URINE WBC 22 /hpf (3-5)
[2016-09-29] MEDS: SENNOSIDES 8.6MG TABLET (FP) PO SCH (22:22)
[2016-09-29] MEDS: ATORVASTATIN CA 20 MG TABLET (FP) PO SCH (22:23)
[2016-09-30] MEDS: INSULIN DETEMIR 100 UNITS/ML MDV SQ SCH (06:25)
[2016-09-30] MEDS: INSULIN SLIDING SCALE (NOVOLOG) 1 VIAL SQ SCH ×4 (06:25→21:58)
[2016-09-30] MEDS: NYSTATIN 500,000 UNITS/5 ML SUSPENSION PO SCH ×4 (06:27→17:33)
[2016-09-30] MEDS: LEVOTHYROXINE NA 75 MCG TABLET (FP) PO SCH (06:29)
[2016-09-30] MEDS: METOCLOPRAMIDE HCL 10 MG TABLET (FP) PO SCH ×4 (06:29→21:57)
[2016-09-30] MEDS: ALBUTEROL SO4 0.083% IH SOL 2.5 MG/3 ML VIAL.NEB. NEB SCH ×3 (06:40→18:00)
[2016-09-30 07:50] LABS: BASOPHIL 0.6 % (0-2.0); EOSINOPHIL 1.7 % (0-4.5); MCH 29.7 pg (25.7-33.7); MCHC 31.5 g/dl (32.0-36.0); MEAN CELL VOLUME 94.2 fl (80-96); NEUTROPHILS 80.7 % (42.8-82.8); PLATELET COUNT 267 K/MM3 (134-434); RDW 16.8 % (11.6-15.6)
[2016-09-30] MEDS: oxyCODONE HCL 5 MG TABLET PO PRN ×2 (08:08→17:14)
[2016-09-30] MEDS: ACETAMINOPHEN 325 MG TABLET (FP) PO PRN ×2 (08:10→17:16)
[2016-09-30 08:15] LABS: ALBUMIN 2.2 g/dl (3.4-5.0); BILIRUBIN,TOTAL 0.3 mg/dL (0.2-1.0); CALCIUM 8.3 mg/dL (8.5-10.1); COCKROFT - GAULT 41.9815; CREATININE 2.6 mg/dL (0.55-1.02); MAGNESIUM 2.7 mg/dL (1.8-2.4); PHOSPHOROUS 6.2 mg/dL (2.5-4.9); TOT PROT 6.7 g/dl (6.4-8.2)
[2016-09-30] MEDS: CALCIUM ACETATE 667 MG CAPSULE (FP) PO SCH ×3 (08:20→17:15)
[2016-09-30] MEDS ORDERED: PT OWN MED DRAWER 7, Y5N ONE (10:06)
[2016-09-30] MEDS: HEPARIN NA (PORCINE) 5,000 UNITS/ML 1ML VIAL SQ SCH ×2 (10:20→22:36)
[2016-09-30] MEDS: DOCUSATE SODIUM 100 MG CAPSULE (FP) PO SCH (10:21)
[2016-09-30] MEDS: GABAPENTIN 300 MG CAPSULE (FP) PO SCH ×4 (10:22→21:57)
[2016-09-30] MEDS: METOPROLOL SUCCINATE 25 MG TAB.SR.24H (FP) PO SCH (10:22)
[2016-09-30] MEDS: CYANOCOBALAMIN 1,000 MCG TABLET (FP) PO SCH (10:22)
[2016-09-30] MEDS: FOLIC ACID 1 MG TABLET (FP) PO SCH (10:22)
[2016-09-30] MEDS: CEFTRIAXONE 50 ML IVPB SCH (10:23)
[2016-09-30] MEDS: ASPIRIN COATED 81 MG TABLET.EC PO SCH (10:23)
[2016-09-30] MEDS: NYSTATIN 100,000 UNIT/GM TOPICAL CREAM 15 GM TUBE TP SCH (10:24)
[2016-09-30] MEDS: FLUTICASONE PROP 0.05% 16 GM NASAL SPRAY NS SCH (10:25)
[2016-09-30] MEDS: MUPIROCIN CA 2% TOPICAL CREAM 15 GM TUBE TP SCH ×2 (10:26→22:25)
[2016-09-30] MEDS: POLYETHYLENE GLYCOL 3350 119 GM BTL PO SCH ×2 (10:26→22:10)
--- NOTE | 2016-09-30 11:03 | PN ---
Progress Note (short form) - Note Progress Note: Renal Follow up for CRISTELA on CKD Seen and examined at the bedside had pain in left leg yesterday denies any sob, chest pain feels uncomfortable bradley in place Vital Signs Temperature 98.5 F 09/30/16 06:00 Pulse Rate 70 09/30/16 06:00 Respiratory Rate 20 09/30/16 06:00 Blood Pressure 149/58 09/30/16 06:00 O2 Sat by Pulse Oximetry (%) 93 L 09/29/16 11:01 Intake & Output 09/27/16 09/28/16 09/29/16 09/30/16 23:59 23:59 23:59 23:59 Intake Total 210 1470 2420 Output Total 380 350 360 200 Balance -170 1120 2060 -200 Weight 300 lb 2 oz 300 lb 2 oz 299 lb 12.8 oz Gen: Mild distress from pain CVS: RRR, No M/R Lungs: Dec BS at the lung bases Abd: soft NT/ND, Obese Ext: 2+ lymphedema, R BKA CBC, BMP 09/30/16 06:30 09/30/16 06:30 Current Medications Acetaminophen (Tylenol -) 650 mg PO DAILY PRN PRN Reason: PAIN LEVEL 6-10 Last Admin: 09/30/16 08:10 Dose: 650 mg Albuterol Sulfate (Ventolin 0.083% Nebulizer Soln -) 1 amp NEB Q6HPO [facility] Last Admin: 09/30/16 06:40 Dose: 1 amp Aspirin (Ecotrin -) 81 mg PO DAILY [facility] Last Admin: 09/30/16 10:23 Dose: 81 mg Atorvastatin Calcium (Lipitor -) 20 mg PO HS [facility] Last Admin: 09/29/16 22:23 Dose: 20 mg Calcium Acetate (Phoslo -) 667 mg PO TIDCM [facility] Last Admin: 09/30/16 08:20 Dose: 667 mg Cyanocobalamin (Vitamin B12 -) 1,000 mcg PO DAILY [facility] Last Admin: 09/30/16 10:22 Dose: 1,000 mcg Docusate Sodium (Colace -) 200 mg PO DAILY [facility] Last Admin: 09/30/16 10:21 Dose: 200 mg Epoetin Dawood (Procrit -) 10,000 unit SQ Rice@10 [facility] Last Admin: 09/29/16 12:31 Dose: 10,000 unit Fluticasone Propionate (Flonase -) 1 spray NS DAILY [facility] Last Admin: 09/30/16 10:25 Dose: 1 spray Folic Acid (Folic Acid -) 1 mg PO DAILY [facility] Last Admin: 09/30/16 10:22 Dose: 1 mg Gabapentin (Neurontin -) 300 mg PO QID [facility] Last Admin: 09/30/16 10:22 Dose: 300 mg Heparin Sodium (Porcine) (Heparin -) 5,000 unit SQ BID [facility] Last Admin: 09/30/16 10:20 Dose: 5,000 unit Ceftriaxone Sodium (Rocephin 1gm Ivpb (Pre-Docked)) 50 mls @ 100 mls/hr IVPB DAILY [facility] Last Admin: 09/30/16 10:23 Dose: 100 mls/hr Insulin Aspart (Novolog Vial Sliding Scale -) 1 vial SQ [facility] PRN Reason: Protocol Last Admin: 09/30/16 06:25 Dose: Not Given Insulin Detemir (Levemir Vial) 10 units SQ ACBK [facility] Last Admin: 09/30/16 06:25 Dose: 10 units Levothyroxine Sodium (Synthroid -) 75 mcg PO ACBK [facility] Last Admin: 09/30/16 06:29 Dose: 75 mcg Loratadine (Claritin -) 10 mg PO DAILY PRN PRN Reason: FOR ITCHING Metoclopramide HCl (Reglan -) 5 mg PO ACHS [facility] Last Admin: 09/30/16 10:22 Dose: 5 mg Metoprolol Succinate (Toprol Xl -) 25 mg PO DAILY [facility] Last Admin: 09/30/16 10:22 Dose: 25 mg Mupirocin (Bactroban 2% Cream -) 1 applic TP BID [facility] Last Admin: 09/30/16 10:26 Dose: 1 applic Nystatin (Mycostatin Cream -) 3 applic TP DAILY [facility] Last Admin: 09/30/16 10:24 Dose: 3 applic Nystatin (Nystatin Oral Suspension -) 500,000 units PO Q6HPO [facility] Last Admin: 09/30/16 06:27 Dose: 500,000 units Oxycodone HCl (Roxicodone -) 5 mg PO Q6H PRN PRN Reason: PAIN Last Admin: 09/30/16 08:08 Dose: 5 mg Polyethylene Glycol (Miralax (For Daily Use) -) 17 gm PO BID [facility] Last Admin: 09/30/16 10:26 Dose: 17 gm Senna (Senna -) 2 tab PO HS [facility] Last Admin: 09/29/16 22:22 Dose: 2 tab A/P 71 year old woman with PMhx of CKD stage 3 w/o significant proteinuria, CHF, COPD, PVD, Chronic LE lymphedema, IDDM, CAD who presented wit fever with BUN/Cr of 85/1.5 and K of 5..5. #CRISTELA on CKD with hyperkalemia High BUN/Cr ratio consistent with renal hypoperfusion/intravascular volume depletion however given low albumin/lymphedema pt grossly volume overloaded when started on diuretics pt with rapidly risiing BUN/Cr pt is oliguric at this point will recommend conservative care off diuretics and IVf at this time pt does not wish to have HD and is not a good candidate for terminal clerk dialysis dose all meds for Cr Cl less then 15 pt may benefit from standing diuretics for volume with the understanding that her BUN/Cr may rise Continue Abx for concurrent infection (may improve hemodymaics if infection resolved) Poor prognosis Thank you Lambert Mcnamara DO
--- NOTE | 2016-09-30 15:48 | PN ---
Progress Note, Physician Chief Complaint: intermitently confused afebrile; uremic; no vomiting - Current Medication List Current Medications: Active Medications Acetaminophen (Tylenol -) 650 mg PO DAILY PRN PRN Reason: PAIN LEVEL 6-10 Last Admin: 09/30/16 08:10 Dose: 650 mg Albuterol Sulfate (Ventolin 0.083% Nebulizer Soln -) 1 amp NEB Q6HPO [facility] Last Admin: 09/30/16 11:36 Dose: 1 amp Aspirin (Ecotrin -) 81 mg PO DAILY [facility] Last Admin: 09/30/16 10:23 Dose: 81 mg Atorvastatin Calcium (Lipitor -) 20 mg PO HS [facility] Last Admin: 09/29/16 22:23 Dose: 20 mg Calcium Acetate (Phoslo -) 667 mg PO TIDCM [facility] Last Admin: 09/30/16 12:39 Dose: 667 mg Cyanocobalamin (Vitamin B12 -) 1,000 mcg PO DAILY [facility] Last Admin: 09/30/16 10:22 Dose: 1,000 mcg Docusate Sodium (Colace -) 200 mg PO DAILY [facility] Last Admin: 09/30/16 10:21 Dose: 200 mg Epoetin Dawood (Procrit -) 10,000 unit SQ Rice@10 [facility] Last Admin: 09/29/16 12:31 Dose: 10,000 unit Fluticasone Propionate (Flonase -) 1 spray NS DAILY [facility] Last Admin: 09/30/16 10:25 Dose: 1 spray Folic Acid (Folic Acid -) 1 mg PO DAILY [facility] Last Admin: 09/30/16 10:22 Dose: 1 mg Gabapentin (Neurontin -) 300 mg PO QID [facility] Last Admin: 09/30/16 13:40 Dose: 300 mg Heparin Sodium (Porcine) (Heparin -) 5,000 unit SQ BID [facility] Last Admin: 09/30/16 10:20 Dose: 5,000 unit Ceftriaxone Sodium (Rocephin 1gm Ivpb (Pre-Docked)) 50 mls @ 100 mls/hr IVPB DAILY [facility] Last Admin: 09/30/16 10:23 Dose: 100 mls/hr Insulin Aspart (Novolog Vial Sliding Scale -) 1 vial SQ ACHS [facility] PRN Reason: Protocol Last Admin: 09/30/16 12:35 Dose: Not Given Insulin Detemir (Levemir Vial) 10 units SQ ACBK [facility] Last Admin: 09/30/16 06:25 Dose: 10 units Levothyroxine Sodium (Synthroid -) 75 mcg PO ACBK [facility] Last Admin: 09/30/16 06:29 Dose: 75 mcg Loratadine (Claritin -) 10 mg PO DAILY PRN PRN Reason: FOR ITCHING Metoclopramide HCl (Reglan -) 5 mg PO ACHS [facility] Last Admin: 09/30/16 10:22 Dose: 5 mg Metoprolol Succinate (Toprol Xl -) 25 mg PO DAILY [facility] Last Admin: 09/30/16 10:22 Dose: 25 mg Mupirocin (Bactroban 2% Cream -) 1 applic TP BID [facility] Last Admin: 09/30/16 10:26 Dose: 1 applic Nystatin (Mycostatin Cream -) 3 applic TP DAILY [facility] Last Admin: 09/30/16 10:24 Dose: 3 applic Nystatin (Nystatin Oral Suspension -) 500,000 units PO Q6HPO [facility] Last Admin: 09/30/16 12:38 Dose: 500,000 units Oxycodone HCl (Roxicodone -) 5 mg PO Q6H PRN PRN Reason: PAIN Last Admin: 09/30/16 08:08 Dose: 5 mg Polyethylene Glycol (Miralax (For Daily Use) -) 17 gm PO BID [facility] Last Admin: 09/30/16 10:26 Dose: 17 gm Senna (Senna -) 2 tab PO HS [facility] Last Admin: 09/29/16 22:22 Dose: 2 tab - Objective Vital Signs: Vital Signs Temperature 98.5 F 09/30/16 06:00 Pulse Rate 70 09/30/16 06:00 Respiratory Rate 20 09/30/16 06:00 Blood Pressure 149/58 09/30/16 06:00 O2 Sat by Pulse Oximetry (%) 93 L 09/29/16 11:01 Constitutional: Yes: Calm Eyes: Yes: Conjunctiva Clear HENT: Yes: Atraumatic Neck: Yes: Supple Cardiovascular: Yes: Regular Rate and Rhythm Respiratory: Yes: Diminished Gastrointestinal: Yes: Soft. No: Distention, Tenderness Genitourinary: No: Hematuria Musculoskeletal: No: Joint Stiffness, Joint Swelling Extremities: No: Cold, Cool Edema: Yes (RLE lymphedema, L stump ) Integumentary: Yes: Rash Neurological: Yes: Alert. No: Oriented Psychiatric: Yes: Alert. No: Oriented, Agitated Labs: CBC, BMP 09/30/16 06:30 09/30/16 06:30 INR, PTT INR 1.22 (0.82-1.09) H 09/16/16 10:53 - ....Imaging Other: Report Reviewed Assessment/Plan The patient is a 71 year old female brought via EMS from [facility], with a significant past medical history of Hypothyroidism, Diabetes, HTN, CHF, [place] x2, (on home O2, 2L), left BKA, anemia, essential tremors, CAD, GERD, CKD and obesity, admitted with UTI, RLE cellulitis, neck and R axilla fungic rash improved; sepsis, UTI, legs cellulitis; R foot cold r/o ischemia - surgery f/u; uremic and oliguric broad spectrum ATB per ID cardiology, renal f/u f/u labs DVT falls decubs and aspiration PFX HOB BGM, DM control; DNR DNI no dyalsis per pt's prior and current wishes palliative care eval prognosis poor, d/w sister d/w pt and staff
[2016-09-30] MEDS: ATORVASTATIN CA 20 MG TABLET (FP) PO SCH (21:57)
[2016-09-30] MEDS: SENNOSIDES 8.6MG TABLET (FP) PO SCH (21:57)
[2016-10-01] MEDS: ALBUTEROL SO4 0.083% IH SOL 2.5 MG/3 ML VIAL.NEB. NEB SCH ×4 (00:04→17:38)
[2016-10-01] MEDS: NYSTATIN 500,000 UNITS/5 ML SUSPENSION PO SCH ×5 (00:13→17:06)
[2016-10-01] MEDS: INSULIN SLIDING SCALE (NOVOLOG) 1 VIAL SQ SCH ×4 (06:10→22:02)
[2016-10-01] MEDS: LEVOTHYROXINE NA 75 MCG TABLET (FP) PO SCH (06:12)
[2016-10-01] MEDS: METOCLOPRAMIDE HCL 10 MG TABLET (FP) PO SCH ×4 (06:12→21:58)
[2016-10-01] MEDS: oxyCODONE HCL 5 MG TABLET PO PRN ×2 (07:21→17:08)
[2016-10-01] MEDS: INSULIN DETEMIR 100 UNITS/ML MDV SQ SCH (07:22)
--- NOTE | 2016-10-01 09:32 | PN ---
Progress Note, Physician Chief Complaint: more confused; ate less - Current Medication List Current Medications: Active Medications Acetaminophen (Tylenol -) 650 mg PO DAILY PRN PRN Reason: PAIN LEVEL 6-10 Last Admin: 09/30/16 17:16 Dose: 650 mg Albuterol Sulfate (Ventolin 0.083% Nebulizer Soln -) 1 amp NEB Q6HPO [facility] Last Admin: 10/01/16 06:14 Dose: 1 amp Aspirin (Ecotrin -) 81 mg PO DAILY [facility] Last Admin: 09/30/16 10:23 Dose: 81 mg Atorvastatin Calcium (Lipitor -) 20 mg PO HS [facility] Last Admin: 09/30/16 21:57 Dose: 20 mg Calcium Acetate (Phoslo -) 667 mg PO TIDCM [facility] Last Admin: 09/30/16 17:15 Dose: 667 mg Cyanocobalamin (Vitamin B12 -) 1,000 mcg PO DAILY [facility] Last Admin: 09/30/16 10:22 Dose: 1,000 mcg Docusate Sodium (Colace -) 200 mg PO DAILY [facility] Last Admin: 09/30/16 10:21 Dose: 200 mg Epoetin Dawood (Procrit -) 10,000 unit SQ Rice@10 [facility] Last Admin: 09/29/16 12:31 Dose: 10,000 unit Fluticasone Propionate (Flonase -) 1 spray NS DAILY [facility] Last Admin: 09/30/16 10:25 Dose: 1 spray Folic Acid (Folic Acid -) 1 mg PO DAILY [facility] Last Admin: 09/30/16 10:22 Dose: 1 mg Gabapentin (Neurontin -) 300 mg PO QID [facility] Last Admin: 09/30/16 21:57 Dose: 300 mg Heparin Sodium (Porcine) (Heparin -) 5,000 unit SQ BID [facility] Last Admin: 09/30/16 22:36 Dose: 5,000 unit Ceftriaxone Sodium (Rocephin 1gm Ivpb (Pre-Docked)) 50 mls @ 100 mls/hr IVPB DAILY [facility] Last Admin: 09/30/16 10:23 Dose: 100 mls/hr Insulin Aspart (Novolog Vial Sliding Scale -) 1 vial SQ ACHS [facility] PRN Reason: Protocol Last Admin: 10/01/16 06:10 Dose: Not Given Insulin Detemir (Levemir Vial) 10 units SQ ACBK [facility] Last Admin: 10/01/16 07:22 Dose: 10 units Levothyroxine Sodium (Synthroid -) 75 mcg PO ACBK [facility] Last Admin: 10/01/16 06:12 Dose: 75 mcg Loratadine (Claritin -) 10 mg PO DAILY PRN PRN Reason: FOR ITCHING Metoclopramide HCl (Reglan -) 5 mg PO ACHS [facility] Last Admin: 10/01/16 06:12 Dose: 5 mg Metoprolol Succinate (Toprol Xl -) 25 mg PO DAILY [facility] Last Admin: 09/30/16 10:22 Dose: 25 mg Mupirocin (Bactroban 2% Cream -) 1 applic TP BID [facility] Last Admin: 09/30/16 22:25 Dose: Not Given Nystatin (Mycostatin Cream -) 3 applic TP DAILY [facility] Last Admin: 09/30/16 10:24 Dose: 3 applic Nystatin (Nystatin Oral Suspension -) 500,000 units PO Q6HPO [facility] Last Admin: 10/01/16 05:42 Dose: 500,000 units Oxycodone HCl (Roxicodone -) 5 mg PO Q6H PRN PRN Reason: PAIN Last Admin: 10/01/16 07:21 Dose: 5 mg Polyethylene Glycol (Miralax (For Daily Use) -) 17 gm PO BID [facility] Last Admin: 09/30/16 22:10 Dose: Not Given Senna (Senna -) 2 tab PO HS [facility] Last Admin: 09/30/16 21:57 Dose: 2 tab - Objective Vital Signs: Vital Signs Temperature 97.8 F 10/01/16 05:59 Pulse Rate 100 H 10/01/16 05:59 Respiratory Rate 22 10/01/16 05:59 Blood Pressure 109/58 10/01/16 05:59 O2 Sat by Pulse Oximetry (%) 92 L 09/30/16 21:00 Constitutional: Yes: Other (more lethargic) Eyes: Yes: Conjunctiva Clear HENT: Yes: Atraumatic Neck: Yes: Supple Cardiovascular: Yes: Regular Rate and Rhythm Respiratory: Yes: Diminished Gastrointestinal: Yes: Soft, Abdomen, Obese. No: Distention, Tenderness Genitourinary: No: CVA Tenderness - Left, CVA Tenderness - Right, Hematuria Musculoskeletal: No: Joint Stiffness, Joint Swelling Extremities: No: Cold, Cool Edema: Yes Integumentary: Yes: Rash (RLE and L stump) Neurological: Yes: Confusion, Lethargy. No: WNL (functional quadriplegia) Psychiatric: No: Oriented, Agitated Labs: CBC, BMP 09/30/16 06:30 09/30/16 06:30 INR, PTT INR 1.22 (0.82-1.09) H 09/16/16 10:53 - ....Imaging Other: Report Reviewed Assessment/Plan The patient is a 71 year old female brought via EMS from [facility], with a significant past medical history of Hypothyroidism, Diabetes, HTN, CHF, [place] x2, (on home O2, 2L), left BKA, anemia, essential tremors, CAD, GERD, CKD and obesity, admitted with UTI, RLE cellulitis, neck and R axilla fungic rash improved; sepsis, UTI, legs cellulitis; uremic and oliguric broad spectrum ATB per ID cardiology, renal f/u f/u labs DVT falls decubs and aspiration PFX HOB BGM, DM control; DNR DNI no dyalsis per pt's prior and current wishes palliative care eval prognosis poor, d/w palliative care who discussed with pt's sisters, eval sent to [facility]; pt's sisters want to continue antibiotics and supportive treatment but no aggressive interventions (no chest compressions no intubation no dyalsis) in accord with pt's prior wishes. d/w pt and staff
[2016-10-01] MEDS: DOCUSATE SODIUM 100 MG CAPSULE (FP) PO SCH (10:27)
[2016-10-01] MEDS: CALCIUM ACETATE 667 MG CAPSULE (FP) PO SCH ×3 (10:27→17:01)
[2016-10-01] MEDS: MUPIROCIN CA 2% TOPICAL CREAM 15 GM TUBE TP SCH ×2 (10:27→22:02)
[2016-10-01] MEDS: FLUTICASONE PROP 0.05% 16 GM NASAL SPRAY NS SCH (10:28)
[2016-10-01] MEDS: FOLIC ACID 1 MG TABLET (FP) PO SCH (10:28)
[2016-10-01] MEDS: POLYETHYLENE GLYCOL 3350 119 GM BTL PO SCH ×2 (10:28→22:00)
[2016-10-01] MEDS: ASPIRIN COATED 81 MG TABLET.EC PO SCH (10:28)
[2016-10-01] MEDS: HEPARIN NA (PORCINE) 5,000 UNITS/ML 1ML VIAL SQ SCH ×2 (10:28→21:56)
[2016-10-01] MEDS: GABAPENTIN 300 MG CAPSULE (FP) PO SCH ×4 (10:29→21:59)
[2016-10-01] MEDS: CEFTRIAXONE 50 ML IVPB SCH (10:29)
[2016-10-01] MEDS: METOPROLOL SUCCINATE 25 MG TAB.SR.24H (FP) PO SCH (10:29)
[2016-10-01] MEDS: NYSTATIN 100,000 UNIT/GM TOPICAL CREAM 15 GM TUBE TP SCH (10:29)
[2016-10-01] MEDS: CYANOCOBALAMIN 1,000 MCG TABLET (FP) PO SCH (10:30)
[2016-10-01 11:04] LABS: CALCIUM 8.3 mg/dL (8.5-10.1); COCKROFT - GAULT 41.9815; CREATININE 2.6 mg/dL (0.55-1.02); MAGNESIUM 2.7 mg/dL (1.8-2.4); PHOSPHOROUS 6.6 mg/dL (2.5-4.9)
--- NOTE | 2016-10-01 12:05 | PN ---
Progress Note (short form) - Note Progress Note: Renal Follow up for CRISTELA on CKD Seen and examined at the bedside was in a lot of pain when dressing were changed on the lower extremities prior dressing were wet denies any sob or pain elsewhere in the body Vital Signs Temperature 98.4 F 10/01/16 10:00 Pulse Rate 88 10/01/16 10:00 Respiratory Rate 18 10/01/16 10:00 Blood Pressure 120/54 10/01/16 10:00 O2 Sat by Pulse Oximetry (%) 92 L 09/30/16 21:00 Intake & Output 09/28/16 09/29/16 09/30/16 10/01/16 23:59 23:59 23:59 23:59 Intake Total 1470 2420 540 Output Total 350 360 750 100 Balance 1120 2060 -210 -100 Weight 300 lb 2 oz 300 lb 2 oz 299 lb 12.8 oz Gen: Mild distress from pain CVS: RRR, No M/R Lungs: Dec BS at the lung bases Abd: soft NT/ND, Obese Ext: 2+ lymphedema, R BKA CBC, BMP 09/30/16 06:30 10/01/16 10:30 Current Medications Acetaminophen (Tylenol -) 650 mg PO DAILY PRN PRN Reason: PAIN LEVEL 6-10 Last Admin: 09/30/16 17:16 Dose: 650 mg Albuterol Sulfate (Ventolin 0.083% Nebulizer Soln -) 1 amp NEB Q6HPO [facility] Last Admin: 10/01/16 06:14 Dose: 1 amp Aspirin (Ecotrin -) 81 mg PO DAILY [facility] Last Admin: 10/01/16 10:28 Dose: 81 mg Atorvastatin Calcium (Lipitor -) 20 mg PO HS [facility] Last Admin: 09/30/16 21:57 Dose: 20 mg Calcium Acetate (Phoslo -) 667 mg PO TIDCM [facility] Last Admin: 10/01/16 12:01 Dose: 667 mg Cyanocobalamin (Vitamin B12 -) 1,000 mcg PO DAILY [facility] Last Admin: 10/01/16 10:30 Dose: 1,000 mcg Docusate Sodium (Colace -) 200 mg PO DAILY [facility] Last Admin: 10/01/16 10:27 Dose: 200 mg Epoetin Dawood (Procrit -) 10,000 unit SQ Rice@10 [facility] Last Admin: 09/29/16 12:31 Dose: 10,000 unit Fluticasone Propionate (Flonase -) 1 spray NS DAILY [facility] Last Admin: 10/01/16 10:28 Dose: 1 spray Folic Acid (Folic Acid -) 1 mg PO DAILY [facility] Last Admin: 10/01/16 10:28 Dose: 1 mg Gabapentin (Neurontin -) 300 mg PO QID [facility] Last Admin: 10/01/16 10:29 Dose: 300 mg Heparin Sodium (Porcine) (Heparin -) 5,000 unit SQ BID [facility] Last Admin: 10/01/16 10:28 Dose: 5,000 unit Ceftriaxone Sodium (Rocephin 1gm Ivpb (Pre-Docked)) 50 mls @ 100 mls/hr IVPB DAILY [facility] Last Admin: 10/01/16 10:29 Dose: 100 mls/hr Insulin Aspart (Novolog Vial Sliding Scale -) 1 vial SQ [facility] PRN Reason: Protocol Last Admin: 10/01/16 12:01 Dose: Not Given Insulin Detemir (Levemir Vial) 10 units SQ BK [facility] Last Admin: 10/01/16 07:22 Dose: 10 units Levothyroxine Sodium (Synthroid -) 75 mcg PO ACBK [facility] Last Admin: 10/01/16 06:12 Dose: 75 mcg Loratadine (Claritin -) 10 mg PO DAILY PRN PRN Reason: FOR ITCHING Metoclopramide HCl (Reglan -) 5 mg PO ACHS [facility] Last Admin: 10/01/16 12:01 Dose: 5 mg Metoprolol Succinate (Toprol Xl -) 25 mg PO DAILY [facility] Last Admin: 10/01/16 10:29 Dose: 25 mg Mupirocin (Bactroban 2% Cream -) 1 applic TP BID [facility] Last Admin: 10/01/16 10:27 Dose: 1 applic Nystatin (Mycostatin Cream -) 3 applic TP DAILY [facility] Last Admin: 10/01/16 10:29 Dose: 3 applic Nystatin (Nystatin Oral Suspension -) 500,000 units PO Q6HPO [facility] Last Admin: 10/01/16 12:01 Dose: 500,000 units Oxycodone HCl (Roxicodone -) 5 mg PO Q6H PRN PRN Reason: PAIN Last Admin: 10/01/16 07:21 Dose: 5 mg Polyethylene Glycol (Miralax (For Daily Use) -) 17 gm PO BID [facility] Last Admin: 10/01/16 10:28 Dose: 17 gm Senna (Senna -) 2 tab PO HS [facility] Last Admin: 09/30/16 21:57 Dose: 2 tab A/P 71 year old woman with PMhx of CKD stage 3 w/o significant proteinuria, CHF, COPD, PVD, Chronic LE lymphedema, IDDM, CAD who presented wit fever with BUN/Cr of 85/1.5 and K of 5..5. #CRISTELA on CKD with hyperkalemia Renal function remains worse then baseline continue supportive care low K diet no overt uremia at this time prognosis is poor Thank you Lambert Mcnamara DO
--- NOTE | 2016-10-01 13:29 | PN ---
Progress Note, Physician History of Present Illness: Awake No complaints Afebrile L stump site appears more erythematous - Current Medication List Current Medications: Active Medications Acetaminophen (Tylenol -) 650 mg PO DAILY PRN PRN Reason: PAIN LEVEL 6-10 Last Admin: 09/30/16 17:16 Dose: 650 mg Albuterol Sulfate (Ventolin 0.083% Nebulizer Soln -) 1 amp NEB Q6HPO [facility] Last Admin: 10/01/16 12:07 Dose: 1 amp Aspirin (Ecotrin -) 81 mg PO DAILY [facility] Last Admin: 10/01/16 10:28 Dose: 81 mg Atorvastatin Calcium (Lipitor -) 20 mg PO HS [facility] Last Admin: 09/30/16 21:57 Dose: 20 mg Calcium Acetate (Phoslo -) 667 mg PO TIDCM [facility] Last Admin: 10/01/16 12:01 Dose: 667 mg Cyanocobalamin (Vitamin B12 -) 1,000 mcg PO DAILY [facility] Last Admin: 10/01/16 10:30 Dose: 1,000 mcg Docusate Sodium (Colace -) 200 mg PO DAILY [facility] Last Admin: 10/01/16 10:27 Dose: 200 mg Epoetin Dawood (Procrit -) 10,000 unit SQ Rice@10 [facility] Last Admin: 09/29/16 12:31 Dose: 10,000 unit Fluticasone Propionate (Flonase -) 1 spray NS DAILY [facility] Last Admin: 10/01/16 10:28 Dose: 1 spray Folic Acid (Folic Acid -) 1 mg PO DAILY [facility] Last Admin: 10/01/16 10:28 Dose: 1 mg Gabapentin (Neurontin -) 300 mg PO QID [facility] Last Admin: 10/01/16 10:29 Dose: 300 mg Heparin Sodium (Porcine) (Heparin -) 5,000 unit SQ BID [facility] Last Admin: 10/01/16 10:28 Dose: 5,000 unit Ceftriaxone Sodium (Rocephin 1gm Ivpb (Pre-Docked)) 50 mls @ 100 mls/hr IVPB DAILY [facility] Last Admin: 10/01/16 10:29 Dose: 100 mls/hr Insulin Aspart (Novolog Vial Sliding Scale -) 1 vial SQ ACHS [facility] PRN Reason: Protocol Last Admin: 10/01/16 12:01 Dose: Not Given Insulin Detemir (Levemir Vial) 10 units SQ ACBK [facility] Last Admin: 10/01/16 07:22 Dose: 10 units Levothyroxine Sodium (Synthroid -) 75 mcg PO ACBK [facility] Last Admin: 10/01/16 06:12 Dose: 75 mcg Loratadine (Claritin -) 10 mg PO DAILY PRN PRN Reason: FOR ITCHING Metoclopramide HCl (Reglan -) 5 mg PO ACHS [facility] Last Admin: 10/01/16 12:01 Dose: 5 mg Metoprolol Succinate (Toprol Xl -) 25 mg PO DAILY [facility] Last Admin: 10/01/16 10:29 Dose: 25 mg Mupirocin (Bactroban 2% Cream -) 1 applic TP BID [facility] Last Admin: 10/01/16 10:27 Dose: 1 applic Nystatin (Mycostatin Cream -) 3 applic TP DAILY [facility] Last Admin: 10/01/16 10:29 Dose: 3 applic Nystatin (Nystatin Oral Suspension -) 500,000 units PO Q6HPO [facility] Last Admin: 10/01/16 12:01 Dose: 500,000 units Oxycodone HCl (Roxicodone -) 5 mg PO Q6H PRN PRN Reason: PAIN Last Admin: 10/01/16 07:21 Dose: 5 mg Polyethylene Glycol (Miralax (For Daily Use) -) 17 gm PO BID [facility] Last Admin: 10/01/16 10:28 Dose: 17 gm Senna (Senna -) 2 tab PO HS [facility] Last Admin: 09/30/16 21:57 Dose: 2 tab - Objective Vital Signs: Vital Signs Temperature 98.4 F 10/01/16 10:00 Pulse Rate 75 10/01/16 12:30 Respiratory Rate 18 10/01/16 10:00 Blood Pressure 120/54 10/01/16 10:00 O2 Sat by Pulse Oximetry (%) 98 10/01/16 12:30 Constitutional: Yes: No Distress, Obese Cardiovascular: Yes: Regular Rate and Rhythm, S1, S2 Respiratory: Yes: Diminished Gastrointestinal: Yes: Normal Bowel Sounds, Soft, Abdomen, Obese. No: Tenderness Extremities: Yes: Other (+ R LE lymphedema,erythema; + erythema/ warmth at L BKA stump site + ulceration, dorsum R foot) Labs: CBC, BMP 09/30/16 06:30 10/01/16 10:30 INR, PTT INR 1.22 (0.82-1.09) H 09/16/16 10:53 Assessment/Plan UTI /Possible sepsis secondary to UTI- Morganella Thrombocytopenia-resolved Azotemia cellulitis R LE, recurrent cellulitis L BKA stump site Will broaden antimicrobial coverage in light of worsening cellulitis L stump Vancomycin level theraputic
[2016-10-01] MEDS: PIPERACILLIN/TAZOB 2.25 GM 50 ML IVPB SCH ×2 (15:26→17:02)
[2016-10-01] MEDS: ATORVASTATIN CA 20 MG TABLET (FP) PO SCH (21:58)
[2016-10-01] MEDS: SENNOSIDES 8.6MG TABLET (FP) PO SCH (21:59)
[2016-10-02] MEDS: ALBUTEROL SO4 0.083% IH SOL 2.5 MG/3 ML VIAL.NEB. NEB SCH ×4 (00:05→17:36)
[2016-10-02] MEDS: NYSTATIN 500,000 UNITS/5 ML SUSPENSION PO SCH ×4 (00:06→17:11)
[2016-10-02] MEDS: PIPERACILLIN/TAZOB 2.25 GM 50 ML IVPB SCH ×3 (01:13→17:22)
[2016-10-02] MEDS: INSULIN SLIDING SCALE (NOVOLOG) 1 VIAL SQ SCH ×3 (06:08→16:55)
[2016-10-02] MEDS: LEVOTHYROXINE NA 75 MCG TABLET (FP) PO SCH (06:08)
[2016-10-02] MEDS: METOCLOPRAMIDE HCL 10 MG TABLET (FP) PO SCH ×4 (06:08→21:55)
[2016-10-02] MEDS: oxyCODONE HCL 5 MG TABLET PO PRN ×2 (06:11→12:30)
[2016-10-02] MEDS: INSULIN DETEMIR 100 UNITS/ML MDV SQ SCH (06:14)
[2016-10-02] MEDS: CALCIUM ACETATE 667 MG CAPSULE (FP) PO SCH ×3 (08:12→16:56)
[2016-10-02] MEDS: MUPIROCIN CA 2% TOPICAL CREAM 15 GM TUBE TP SCH ×2 (10:30→21:47)
[2016-10-02] MEDS: NYSTATIN 100,000 UNIT/GM TOPICAL CREAM 15 GM TUBE TP SCH (10:30)
[2016-10-02] MEDS: FLUTICASONE PROP 0.05% 16 GM NASAL SPRAY NS SCH (10:31)
[2016-10-02] MEDS: ASPIRIN COATED 81 MG TABLET.EC PO SCH (10:31)
[2016-10-02] MEDS: DOCUSATE SODIUM 100 MG CAPSULE (FP) PO SCH (10:31)
[2016-10-02] MEDS: HEPARIN NA (PORCINE) 5,000 UNITS/ML 1ML VIAL SQ SCH ×2 (10:32→21:47)
[2016-10-02] MEDS: POLYETHYLENE GLYCOL 3350 119 GM BTL PO SCH ×2 (10:32→21:56)
[2016-10-02] MEDS: FOLIC ACID 1 MG TABLET (FP) PO SCH (10:32)
[2016-10-02] MEDS: CYANOCOBALAMIN 1,000 MCG TABLET (FP) PO SCH (10:33)
[2016-10-02] MEDS: GABAPENTIN 300 MG CAPSULE (FP) PO SCH ×4 (10:33→21:56)
[2016-10-02] MEDS: METOPROLOL SUCCINATE 25 MG TAB.SR.24H (FP) PO SCH (10:33)
--- NOTE | 2016-10-02 10:42 | PN ---
Progress Note (short form) - Note Progress Note: CC: trop elevation S: lethargic, not conversive today, no overnight events, appears comfortable Current Medications Generic Name Dose Route Start Last Admin Trade Name Cheryle PRN Reason Stop Dose Admin Acetaminophen 650 mg 09/16/16 19:39 09/30/16 17:16 Tylenol - PO 650 mg DAILY PRN Administration PAIN LEVEL 6-10 Albuterol Sulfate 1 amp 09/16/16 19:15 10/02/16 06:28 Ventolin 0.083% Nebulizer Soln - NEB 1 amp Q6HPO [facility] Administration Aspirin 81 mg 09/17/16 10:00 10/02/16 10:31 Ecotrin - PO Not Given DAILY [facility] Atorvastatin Calcium 20 mg 09/16/16 22:00 10/01/16 21:58 Lipitor - PO 20 mg HS [facility] Administration Calcium Acetate 667 mg 09/17/16 08:00 10/02/16 08:12 Phoslo - PO 667 mg TIDCM [facility] Administration Cyanocobalamin 1,000 mcg 09/17/16 10:00 10/02/16 10:33 Vitamin B12 - PO Not Given DAILY [facility] Docusate Sodium 200 mg 09/17/16 10:00 10/02/16 10:31 Colace - PO Not Given DAILY [facility] Epoetin Dawood 10,000 unit 09/22/16 10:00 09/29/16 12:31 Procrit - SQ 10,000 unit Rice@10 [facility] Administration Fluticasone Propionate 1 spray 09/17/16 10:00 10/02/16 10:31 Flonase - NS 1 spray DAILY [facility] Administration Folic Acid 1 mg 09/17/16 10:00 10/02/16 10:32 Folic Acid - PO Not Given DAILY [facility] Gabapentin 300 mg 09/16/16 22:00 10/02/16 10:33 Neurontin - PO Not Given QID [facility] Heparin Sodium (Porcine) 5,000 unit 09/16/16 22:00 10/02/16 10:32 Heparin - SQ 5,000 unit BID [facility] Administration Piperacillin Sod/Tazobactam Sod 50 mls @ 100 mls/hr 10/01/16 13:45 10/02/16 10: 33 Zosyn 2.25gm Ivpb (Pre-Docked) IVPB 100 mls/hr Q8H-IV [facility] Administration Protocol Insulin Aspart 1 vial 05/22/17 22:00 10/02/16 06:08 Novolog Vial Sliding Scale - SQ Not Given ACHS [facility] Protocol Levothyroxine Sodium 75 mcg 09/26/16 09:36 10/02/16 06:08 Synthroid - PO 75 mcg ACBK [facility] Administration Loratadine 10 mg 09/26/16 09:37 Claritin - PO DAILY PRN FOR ITCHING Metoclopramide HCl 5 mg 09/16/16 22:00 10/02/16 06:08 Reglan - PO 5 mg ACHS [facility] Administration Metoprolol Succinate 25 mg 09/18/16 11:59 10/02/16 10:33 Toprol Xl - PO Not Given DAILY [facility] Mupirocin 1 applic 09/16/16 22:00 10/02/16 10:30 Bactroban 2% Cream - TP 1 applic BID [facility] Administration Nystatin 3 applic 09/17/16 10:00 10/02/16 10:30 Mycostatin Cream - TP 3 applic DAILY [facility] Administration Nystatin 500,000 units 09/21/16 12:00 10/02/16 05:35 Nystatin Oral Suspension - PO 500,000 units Q6HPO [facility] Administration Oxycodone HCl 5 mg 09/16/16 19:11 10/02/16 06:11 Roxicodone - PO 5 mg Q6H PRN Administration PAIN Polyethylene Glycol 17 gm 09/16/16 22:00 10/02/16 10:32 Miralax (For Daily Use) - PO Not Given BID [facility] Senna 2 tab 09/16/16 22:00 10/01/16 21:59 Senna - PO 2 tab HS [facility] Administration Vital Signs Period Temp Pulse Resp BP Sys/Hagan Pulse Ox Last 24 Hr 97.3 F-98.5 F 67-88 16-20 104-123/47-65 98-100 NAD, obese, jvd tds RRR nl s1, s2 2/6 murmur at sternal border and apex scattered rhonchi bl anteriorly, poor effort + bs soft obese edematous nt +distension diminished distal pulses. s/p lt bka trace le edema erythema/venous stasis changes/skin excoriations and peau d' orange changes of LE skin lethargic no jaundice diaphoresis CBC, BMP 09/30/16 06:30 10/01/16 10:30 EKG here: stach, 105 bpm. poor r wave progression. non- specific tw changes, no sig change from prior Echo 07/01/2016: Mild decr EF. paradoxical septal motion with mild HK of anteroseptum. RV not seen. 1+ mr/tr. mild (although MG only 12 mmHg). Echo 06/2015: mild-mod decr EF--global; nl RV; mild LAE; mild-mod MR/TR; RVSP 30- 40; small peric effusion; + pleural eff a/p: 71 yo with h/o HFpEF, CAD s/p DC, HTN, HL, pHTN, MIRIAM, o2 dep't copd, CKD , IDDM, hypothyroid and chronic LLE cellulitis/lt foot gangrene s/p L BKA, here with n/v. intermediate troponin elevation/CAD -has previously refused stress tests. h/o prior NSTEMI x 2 (2012, 2014) in setting of demand (sepsis/anemia). Con't JUAN ANTONIO, but current elevation likely in setting of demand. -cath previously deferred due to: pt preference; hi risk of vascular complications (obese habitus), hi risk of BERNARDINO, and h/o recurrent anemia, possible occult GIB -currently without anginal sx's. EKG unchanged. Con't statin, BB, asa. imdur held for hypotension. -MATEO deferred previously due to labile creat's--no change chronic foot wound, gangrene, now s/p bka 07/03/16: - per pmd/vascular chronic HFpEF/pulm HTN/venous ins'y/acute on chronic hypoxic and hypercapneic resp failure: - mild systolic dysfunction, presumed RV dysfunction. - while here have tried both ivfs and diuretics w/o improvement in renal fcn. Pt declined HD. Now family considering comfort care/hospice. PSVT: -likely brief run of ATach on prior tele , no recurrence -con't bb as bp tolerates VTach: -17 beat run of NSVT on prior tele (previous admit), no recurrence -K/Mag repletion prn -con't bb as bp tolerates CKD - cr above baseline - while here have tried both ivfs and diuretics w/o improvement in renal fcn. Pt declined HD. Now family considering comfort care/hospice. - renal following MIRIAM - on bipap qhs. anemia: -chronic, baseline runs 8s-9s; -freq acute drops/PRBCs in past; currently at baseline. HTN: -controlled. monitor for hypotension in setting of infection -con't home bp meds, as bp tolerates. imdur held for hypotension.
--- NOTE | 2016-10-02 10:57 | DS ---
Physical Examination Vital Signs: Vital Signs Temperature 98.0 F 10/02/16 08:40 Pulse Rate 88 10/02/16 08:40 Respiratory Rate 16 10/02/16 08:40 Blood Pressure 104/50 10/02/16 08:40 O2 Sat by Pulse Oximetry (%) 98 10/01/16 21:00 Findings/Remarks: more lethargic, less po intake; uremic; VSS afebrile on IV ATB per ID DNR DNI BGM 80; standing sq insulin DCd; continue sliding scale insulin poor overall prognosis I d/w Palliative care and d/w pt's sister Patricia (I also called home [facility] left message [phone]) they agreed to transfer to [facility] for comfort and palliative care; Constitutional: Yes: Other (lethargic) Eyes: Yes: Conjunctiva Clear HENT: Yes: Atraumatic Neck: Yes: Supple Cardiovascular: Yes: Regular Rate and Rhythm Respiratory: Yes: Diminished Gastrointestinal: Yes: Soft, Abdomen, Obese. No: Tenderness Renal/: Yes: Graf Present. No: Hematuria Musculoskeletal: No: Joint Stiffness, Joint Swelling Extremities: Yes: Other (RLE and L stump rash and edema and fluid bulae). No: Cold, Cool Edema: Yes (both legs) Integumentary: Yes: Rash (both rash) Wound/Incision: Yes: Excoriated (pelvic) Neurological: No: Alert Psychiatric: No: Alert, Agitated Labs: CBC, BMP 09/30/16 06:30 10/01/16 10:30 Discharge Summary Reason For Visit: URINARY TRACT INFECTION; ELEVATED TROPONIN LEVEL Current Active Problems Acute on chronic renal failure (Acute) Bradycardia (Acute) CO2 retention (Acute) Diabetes (Acute) Elevated troponin (Acute) Fluid overload (Acute) Hypermagnesemia (Acute) Hypernatremia (Acute) Lymphedema of right lower extremity (Acute) Pulmonary hypertension (Acute) Renal insufficiency (Acute) UTI (urinary tract infection) (Acute) Procedures: Principal: admitted with sepsis sec to UTI and cellulitis; nonstemi , + troponins. h/o multiple comorbidities; ASHD CHF COPD CRF DM, anemia, obesity, L BKA, RLE lymphedema Other Procedures: IV antibiotics per ID; also seen by cardiology; renal Hospital Course: did not improve with the above treatment; developed ARF; IVF given but fluid overload worse; pt DNR DNI refused dyalysis in the past, pt became uremic and obtunded; pt's HCP agreed with palliative comfort care; to be transferred to [facility] Condition: Worsened - Instructions Diet, Activity, Other Instructions: transfer to [facility] for comfort/ palliative care Referrals: Amina Wong [Primary Care Provider] - Disposition: TRANSFER ACUTE CARE/OTHER HOSP - Home Medications Comprehensive Discharge Medication List: Ambulatory Orders Docusate Sodium [Colace -] 200 mg PO DAILY 09/16/16 Epoetin Dawood [Procrit] 10,000 unit SQ WEEKLY 09/16/16 Fluticasone Prop 0.05% Nasal [Flonase -] 1 spray NS DAILY 09/16/16 Gabapentin [Neurontin -] 300 mg PO QID 09/16/16 Heparin - 5,000 unit SQ BID 09/16/16 Levothyroxine [Synthroid -] 50 mcg PO DAILY 09/16/16 Metoclopramide HCl [Reglan] 5 mg PO QID 09/16/16 Acetaminophen 2 tab PO DAILY #0 cap 10/02/16 Albuterol 0.083% Nebulizer Adina [Ventolin 0.083% Nebulizer Soln -] 1 neb NEB Q6H #0 amp 10/02/16 Aspirin Coated [Ecotrin -] 81 mg PO DAILY #0 tab 10/02/16 Calcium Acetate 667 mg PO TID #0 tab 10/02/16 Ceftriaxone [Rocephin 1Gm Ivpb (Pre-Docked)] 50 ml IVPB DAILY bag 10/02/16 Insulin Sliding Scale [Novolog Vial Sliding Scale -] 1 vial SQ ACHS units 10/02 Mag Hydrox/Al Hydrox/Simeth [Jigna-Lanta Liquid] 10 ml PO BID PRN #0 bottle 10/02 Metoprolol Succinate [Toprol XL -] 25 mg PO DAILY #0 tab 10/02/16 Mupirocin Cream [Bactroban 2% Cream -] 1 applic TP BID #0 tube 10/02/16 Nystatin Cream [Mycostatin Cream -] 3 applic TP DAILY #0 tube 10/02/16 Nystatin Oral Suspension - [Nystatin Oral Susp 531415 Units/5 ML -] 500,000 units PO Q6HPO bottle 10/02/16 Oxycodone HCl [Roxicodone -] 5 mg PO Q6H PRN #0 tab 10/02/16 Piperacillin/Tazob 2.25 gm [Zosyn 2.25GM Ivpb (Pre-Docked)] 50 ml IVPB Q8H-IV bag 10/02/16 Polyethylene Glycol 3350 [Miralax 119 gm Btl -] 17 gm PO BID PRN #0 bottle 10/02 Sennosides [Senna] 2 tab PO HS #0 tab 10/02/16
--- NOTE | 2016-10-02 12:00 | PN ---
Progress Note (short form) - Note Progress Note: Renal Follow up for CRISTELA on CKD Seen and examined at the bedside pt appears sedated, but arouseable to physical stimuli continues to have pain, especially when she is moved poor urine output Vital Signs Temperature 98.0 F 10/02/16 08:40 Pulse Rate 89 10/02/16 11:00 Respiratory Rate 16 10/02/16 08:40 Blood Pressure 104/50 10/02/16 08:40 O2 Sat by Pulse Oximetry (%) 100 10/02/16 11:00 Intake & Output 09/29/16 09/30/16 10/01/16 10/02/16 23:59 23:59 23:59 23:59 Intake Total 2420 540 250 Output Total 360 750 350 100 Balance [id number] 100 -100 Weight 300 lb 2 oz 299 lb 12.8 oz Gen: Mild distress from pain CVS: RRR, No M/R Lungs: Dec BS at the lung bases Abd: soft NT/ND, Obese Ext: 2+ lymphedema, R BKA CBC, BMP 09/30/16 06:30 10/01/16 10:30 no new labs today Current Medications Acetaminophen (Tylenol -) 650 mg PO DAILY PRN PRN Reason: PAIN LEVEL 6-10 Last Admin: 09/30/16 17:16 Dose: 650 mg Albuterol Sulfate (Ventolin 0.083% Nebulizer Soln -) 1 amp NEB Q6HPO [facility] Last Admin: 10/02/16 11:17 Dose: 1 amp Aspirin (Ecotrin -) 81 mg PO DAILY [facility] Last Admin: 10/02/16 10:31 Dose: Not Given Atorvastatin Calcium (Lipitor -) 20 mg PO HS [facility] Last Admin: 10/01/16 21:58 Dose: 20 mg Calcium Acetate (Phoslo -) 667 mg PO TIDCM [facility] Last Admin: 10/02/16 08:12 Dose: 667 mg Cyanocobalamin (Vitamin B12 -) 1,000 mcg PO DAILY [facility] Last Admin: 10/02/16 10:33 Dose: Not Given Docusate Sodium (Colace -) 200 mg PO DAILY [facility] Last Admin: 10/02/16 10:31 Dose: Not Given Epoetin Dawood (Procrit -) 10,000 unit SQ Rice@10 [facility] Last Admin: 09/29/16 12:31 Dose: 10,000 unit Fluticasone Propionate (Flonase -) 1 spray NS DAILY [facility] Last Admin: 10/02/16 10:31 Dose: 1 spray Folic Acid (Folic Acid -) 1 mg PO DAILY [facility] Last Admin: 10/02/16 10:32 Dose: Not Given Gabapentin (Neurontin -) 300 mg PO QID [facility] Last Admin: 10/02/16 10:33 Dose: Not Given Heparin Sodium (Porcine) (Heparin -) 5,000 unit SQ BID [facility] Last Admin: 10/02/16 10:32 Dose: 5,000 unit Piperacillin Sod/Tazobactam Sod (Zosyn 2.25gm Ivpb (Pre-Docked)) 50 mls @ 100 mls/hr IVPB Q8H-IV [facility] PRN Reason: Protocol Last Admin: 10/02/16 10:33 Dose: 100 mls/hr Insulin Aspart (Novolog Vial Sliding Scale -) 1 vial SQ [facility] PRN Reason: Protocol Last Admin: 10/02/16 06:08 Dose: Not Given Levothyroxine Sodium (Synthroid -) 75 mcg PO ACBK [facility] Last Admin: 10/02/16 06:08 Dose: 75 mcg Loratadine (Claritin -) 10 mg PO DAILY PRN PRN Reason: FOR ITCHING Metoclopramide HCl (Reglan -) 5 mg PO ACHS [facility] Last Admin: 10/02/16 06:08 Dose: 5 mg Metoprolol Succinate (Toprol Xl -) 25 mg PO DAILY [facility] Last Admin: 10/02/16 10:33 Dose: Not Given Mupirocin (Bactroban 2% Cream -) 1 applic TP BID [facility] Last Admin: 10/02/16 10:30 Dose: 1 applic Nystatin (Mycostatin Cream -) 3 applic TP DAILY [facility] Last Admin: 10/02/16 10:30 Dose: 3 applic Nystatin (Nystatin Oral Suspension -) 500,000 units PO Q6HPO [facility] Last Admin: 10/02/16 05:35 Dose: 500,000 units Oxycodone HCl (Roxicodone -) 5 mg PO Q6H PRN PRN Reason: PAIN Last Admin: 10/02/16 06:11 Dose: 5 mg Polyethylene Glycol (Miralax (For Daily Use) -) 17 gm PO BID [facility] Last Admin: 10/02/16 10:32 Dose: Not Given Senna (Senna -) 2 tab PO HS [facility] Last Admin: 10/01/16 21:59 Dose: 2 tab A/P 71 year old woman with PMhx of CKD stage 3 w/o significant proteinuria, CHF, COPD, PVD, Chronic LE lymphedema, IDDM, CAD who presented wit fever with BUN/Cr of 85/1.5 and K of 5..5. #CRISTELA on CKD with hyperkalemia no new labs today pt is lethargic today, likely due to worsening uremia agree with palliative care measures supportive care pain control Thank you Lambert Mcnamara DO
[2016-10-02] MEDS: SENNOSIDES 8.6MG TABLET (FP) PO SCH (21:55)
[2016-10-02] MEDS: ATORVASTATIN CA 20 MG TABLET (FP) PO SCH (21:56)
[2016-10-03] MEDS: ALBUTEROL SO4 0.083% IH SOL 2.5 MG/3 ML VIAL.NEB. NEB SCH ×5 (00:23→23:55)
[2016-10-03] MEDS: NYSTATIN 500,000 UNITS/5 ML SUSPENSION PO SCH ×5 (00:47→23:12)
[2016-10-03] MEDS: PIPERACILLIN/TAZOB 2.25 GM 50 ML IVPB SCH ×3 (01:47→18:24)
[2016-10-03] MEDS: INSULIN SLIDING SCALE (NOVOLOG) 1 VIAL SQ SCH ×2 (06:27→21:05)
[2016-10-03] MEDS: LEVOTHYROXINE NA 75 MCG TABLET (FP) PO SCH (06:28)
[2016-10-03] MEDS: METOCLOPRAMIDE HCL 10 MG TABLET (FP) PO SCH ×4 (06:28→22:00)
[2016-10-03 07:30] LABS: MCH 29.3 pg (25.7-33.7); MCHC 30.8 g/dl (32.0-36.0); MEAN PLT VOLUME 8.1 fl (7.5-11.1); PLATELET COUNT 244 K/MM3 (134-434); RDW 17.5 % (11.6-15.6); WHITE BLOOD COUNT 7.1 K/mm3 (4.0-10.0)
[2016-10-03 07:57] LABS: CALCIUM 8.3 mg/dL (8.5-10.1); COCKROFT - GAULT 40.222; CREATININE 2.7 mg/dL (0.55-1.02)
[2016-10-03] MEDS: CALCIUM ACETATE 667 MG CAPSULE (FP) PO SCH ×3 (08:32→18:24)
[2016-10-03] MEDS ORDERED: SODIUM POLYSTYRENE SULFONATE 15 GM/60 ML BOTTLE PO ONE (09:00)
[2016-10-03] MEDS: GABAPENTIN 300 MG CAPSULE (FP) PO SCH ×4 (09:36→22:01)
[2016-10-03] MEDS: CYANOCOBALAMIN 1,000 MCG TABLET (FP) PO SCH (09:36)
[2016-10-03] MEDS: DOCUSATE SODIUM 100 MG CAPSULE (FP) PO SCH (09:36)
[2016-10-03] MEDS: oxyCODONE HCL 5 MG TABLET PO PRN (09:36)
[2016-10-03] MEDS: ASPIRIN COATED 81 MG TABLET.EC PO SCH (09:37)
[2016-10-03] MEDS: FOLIC ACID 1 MG TABLET (FP) PO SCH (09:37)
[2016-10-03] MEDS: MUPIROCIN CA 2% TOPICAL CREAM 15 GM TUBE TP SCH ×2 (09:38→22:03)
[2016-10-03] MEDS: HEPARIN NA (PORCINE) 5,000 UNITS/ML 1ML VIAL SQ SCH ×2 (09:38→22:00)
[2016-10-03] MEDS: FLUTICASONE PROP 0.05% 16 GM NASAL SPRAY NS SCH (09:38)
[2016-10-03] MEDS: NYSTATIN 100,000 UNIT/GM TOPICAL CREAM 15 GM TUBE TP SCH (09:42)
[2016-10-03] MEDS: METOPROLOL SUCCINATE 25 MG TAB.SR.24H (FP) PO SCH (09:42)
[2016-10-03] MEDS: POLYETHYLENE GLYCOL 3350 119 GM BTL PO SCH ×2 (09:43→22:00)
--- NOTE | 2016-10-03 10:16 | PN ---
Progress Note, Physician Chief Complaint: confused; NAD afebrile; no pain - Current Medication List Current Medications: Active Medications Acetaminophen (Tylenol -) 650 mg PO DAILY PRN PRN Reason: PAIN LEVEL 6-10 Last Admin: 09/30/16 17:16 Dose: 650 mg Albuterol Sulfate (Ventolin 0.083% Nebulizer Soln -) 1 amp NEB Q6HPO [facility] Last Admin: 10/03/16 07:01 Dose: 1 amp Aspirin (Ecotrin -) 81 mg PO DAILY [facility] Last Admin: 10/03/16 09:37 Dose: 81 mg Atorvastatin Calcium (Lipitor -) 20 mg PO HS [facility] Last Admin: 10/02/16 21:56 Dose: 20 mg Calcium Acetate (Phoslo -) 667 mg PO TIDCM [facility] Last Admin: 10/03/16 08:32 Dose: 667 mg Cyanocobalamin (Vitamin B12 -) 1,000 mcg PO DAILY [facility] Last Admin: 10/03/16 09:36 Dose: 1,000 mcg Docusate Sodium (Colace -) 200 mg PO DAILY [facility] Last Admin: 10/03/16 09:36 Dose: 200 mg Epoetin Dawood (Procrit -) 10,000 unit SQ Rice@10 [facility] Last Admin: 09/29/16 12:31 Dose: 10,000 unit Fluticasone Propionate (Flonase -) 1 spray NS DAILY [facility] Last Admin: 10/03/16 09:38 Dose: 1 spray Folic Acid (Folic Acid -) 1 mg PO DAILY [facility] Last Admin: 10/03/16 09:37 Dose: 1 mg Gabapentin (Neurontin -) 300 mg PO QID [facility] Last Admin: 10/03/16 09:36 Dose: 300 mg Heparin Sodium (Porcine) (Heparin -) 5,000 unit SQ BID [facility] Last Admin: 10/03/16 09:38 Dose: 5,000 unit Piperacillin Sod/Tazobactam Sod (Zosyn 2.25gm Ivpb (Pre-Docked)) 50 mls @ 100 mls/hr IVPB Q8H-IV [facility] PRN Reason: Protocol Last Admin: 10/03/16 09:37 Dose: 100 mls/hr Insulin Aspart (Novolog Vial Sliding Scale -) 1 vial SQ BIDAC [facility] PRN Reason: Protocol Last Admin: 10/03/16 06:27 Dose: Not Given Levothyroxine Sodium (Synthroid -) 75 mcg PO ACBK [facility] Last Admin: 10/03/16 06:28 Dose: Not Given Loratadine (Claritin -) 10 mg PO DAILY PRN PRN Reason: FOR ITCHING Metoclopramide HCl (Reglan -) 5 mg PO ACHS [facility] Last Admin: 10/03/16 06:28 Dose: Not Given Metoprolol Succinate (Toprol Xl -) 25 mg PO DAILY [facility] Last Admin: 10/03/16 09:42 Dose: 25 mg Mupirocin (Bactroban 2% Cream -) 1 applic TP BID [facility] Last Admin: 10/03/16 09:38 Dose: 1 applic Nystatin (Mycostatin Cream -) 3 applic TP DAILY [facility] Last Admin: 10/03/16 09:42 Dose: 3 applic Nystatin (Nystatin Oral Suspension -) 500,000 units PO Q6HPO [facility] Last Admin: 10/03/16 05:47 Dose: Not Given Oxycodone HCl (Roxicodone -) 5 mg PO Q6H PRN PRN Reason: PAIN Last Admin: 10/03/16 09:36 Dose: 5 mg Polyethylene Glycol (Miralax (For Daily Use) -) 17 gm PO BID [facility] Last Admin: 10/03/16 09:43 Dose: Not Given Senna (Senna -) 2 tab PO HS [facility] Last Admin: 10/02/16 21:55 Dose: 2 tab - Objective Vital Signs: Vital Signs Temperature 98.2 F 10/03/16 06:00 Pulse Rate 80 10/03/16 10:12 Respiratory Rate 20 10/03/16 06:00 Blood Pressure 111/54 10/03/16 06:00 O2 Sat by Pulse Oximetry (%) 100 10/03/16 10:12 Constitutional: Yes: No Distress, Calm Eyes: Yes: Conjunctiva Clear HENT: Yes: Atraumatic Neck: Yes: Supple Cardiovascular: Yes: Regular Rate and Rhythm Respiratory: Yes: Diminished Gastrointestinal: Yes: Abdomen, Obese. No: Distention Genitourinary: No: Hematuria Musculoskeletal: No: Joint Stiffness, Joint Swelling Extremities: No: Cold, Cool Edema: Yes Integumentary: Yes: Rash (legs) Neurological: Yes: Alert. No: Oriented Psychiatric: Yes: Alert. No: Oriented, Agitated Labs: CBC, BMP 10/03/16 06:45 10/03/16 06:45 INR, PTT INR 1.22 (0.82-1.09) H 09/16/16 10:53 - ....Imaging Other: Report Reviewed Assessment/Plan The patient is a 71 year old female brought via EMS from [facility], with a significant past medical history of Hypothyroidism, Diabetes, HTN, CHF, MA x2, (on home O2, 2L), left BKA, anemia, essential tremors, CAD, GERD, CKD and obesity, admitted with UTI, RLE cellulitis, neck and R axilla fungic rash improved; sepsis, UTI, legs cellulitis; uremic and oliguric broad spectrum ATB per ID cardiology, renal f/u f/u labs DVT falls decubs and aspiration PFX HOB BGM, DM control; DNR DNI no dyalsis per pt's prior and current wishes palliative care eval prognosis poor, d/w palliative care who discussed with pt's sisters, eval sent to [facility]; pt's sisters want to continue antibiotics and supportive treatment but no aggressive interventions (no chest compressions no intubation no dyalsis) in accord with pt's prior wishes. d/w pt and staff
--- NOTE | 2016-10-03 10:19 | PN ---
Progress Note (short form) - Note Progress Note: CC: trop elevation S: awake, somewhat confused, denies cp/sob. no overnight events, appears comfortable Current Medications Generic Name Dose Route Start Last Admin Trade Name Freq PRN Reason Stop Dose Admin Acetaminophen 650 mg 09/16/16 19:39 09/30/16 17:16 Tylenol - PO 650 mg DAILY PRN Administration PAIN LEVEL 6-10 Albuterol Sulfate 1 amp 09/16/16 19:15 10/03/16 07:01 Ventolin 0.083% Nebulizer Soln - NEB 1 amp Q6HPO [facility] Administration Aspirin 81 mg 09/17/16 10:00 10/03/16 09:37 Ecotrin - PO 81 mg DAILY [facility] Administration Atorvastatin Calcium 20 mg 09/16/16 22:00 10/02/16 21:56 Lipitor - PO 20 mg HS [facility] Administration Calcium Acetate 667 mg 09/17/16 08:00 10/03/16 08:32 Phoslo - PO 667 mg TIDCM [facility] Administration Cyanocobalamin 1,000 mcg 09/17/16 10:00 10/03/16 09:36 Vitamin B12 - PO 1,000 mcg DAILY [facility] Administration Docusate Sodium 200 mg 09/17/16 10:00 10/03/16 09:36 Colace - PO 200 mg DAILY [facility] Administration Epoetin Dawood 10,000 unit 09/22/16 10:00 09/29/16 12:31 Procrit - SQ 10,000 unit Rice@10 [facility] Administration Fluticasone Propionate 1 spray 09/17/16 10:00 10/03/16 09:38 Flonase - NS 1 spray DAILY [facility] Administration Folic Acid 1 mg 09/17/16 10:00 10/03/16 09:37 Folic Acid - PO 1 mg DAILY [facility] Administration Gabapentin 300 mg 09/16/16 22:00 10/03/16 09:36 Neurontin - PO 300 mg QID [facility] Administration Heparin Sodium (Porcine) 5,000 unit 09/16/16 22:00 10/03/16 09:38 Heparin - SQ 5,000 unit BID [facility] Administration Piperacillin Sod/Tazobactam Sod 50 mls @ 100 mls/hr 10/01/16 13:45 10/03/16 09: 37 Zosyn 2.25gm Ivpb (Pre-Docked) IVPB 100 mls/hr Q8H-IV [facility] Administration Protocol Insulin Aspart 1 vial 10/02/16 16:58 10/03/16 06:27 Novolog Vial Sliding Scale - SQ Not Given BIDAC [facility] Protocol Levothyroxine Sodium 75 mcg 09/26/16 09:36 10/03/16 06:28 Synthroid - PO Not Given ACBK [facility] Loratadine 10 mg 09/26/16 09:37 Claritin - PO DAILY PRN FOR ITCHING Metoclopramide HCl 5 mg 09/16/16 22:00 10/03/16 06:28 Reglan - PO Not Given ACHS [facility] Metoprolol Succinate 25 mg 09/18/16 11:59 10/03/16 09:42 Toprol Xl - PO 25 mg DAILY [facility] Administration Mupirocin 1 applic 09/16/16 22:00 10/03/16 09:38 Bactroban 2% Cream - TP 1 applic BID [facility] Administration Nystatin 3 applic 09/17/16 10:00 10/03/16 09:42 Mycostatin Cream - TP 3 applic DAILY [facility] Administration Nystatin 500,000 units 09/21/16 12:00 10/03/16 05:47 Nystatin Oral Suspension - PO Not Given Q6HPO [facility] Oxycodone HCl 5 mg 09/16/16 19:11 10/03/16 09:36 Roxicodone - PO 5 mg Q6H PRN Administration PAIN Polyethylene Glycol 17 gm 09/16/16 22:00 10/03/16 09:43 Miralax (For Daily Use) - PO Not Given BID [facility] Senna 2 tab 09/16/16 22:00 10/02/16 21:55 Senna - PO 2 tab HS [facility] Administration Vital Signs Period Temp Pulse Resp BP Sys/Hagan Pulse Ox Last 24 Hr 98.2 F-98.4 F 75-89 16-20 99-117/44-54 100-100 NAD, obese, jvd tds RRR nl s1, s2 2/6 murmur at sternal border and apex scattered rhonchi bl anteriorly, poor effort + bs soft obese edematous nt +distension diminished distal pulses. s/p lt bka trace le edema erythema/venous stasis changes/skin excoriations and peau d' orange changes of LE skin lethargic no jaundice diaphoresis CBC, BMP 10/03/16 06:45 10/03/16 06:45 EKG here: stach, 105 bpm. poor r wave progression. non- specific tw changes, no sig change from prior Echo 07/01/2016: Mild decr EF. paradoxical septal motion with mild HK of anteroseptum. RV not seen. 1+ mr/tr. mild (although MG only 12 mmHg). Echo 06/2015: mild-mod decr EF--global; nl RV; mild LAE; mild-mod MR/TR; RVSP 30- 40; small peric effusion; + pleural eff a/p: 71 yo with h/o HFpEF, CAD s/p MS, HTN, HL, pHTN, MIRIAM, o2 dep't copd, CKD , IDDM, hypothyroid and chronic LLE cellulitis/lt foot gangrene s/p L BKA, here with n/v. intermediate troponin elevation/CAD -has previously refused stress tests. h/o prior NSTEMI x 2 (2012, 2014) in setting of demand (sepsis/anemia). Con't JUAN ANTONIO, but current elevation likely in setting of demand. -cath previously deferred due to: pt preference; hi risk of vascular complications (obese habitus), hi risk of BERNARDINO, and h/o recurrent anemia, possible occult GIB -currently without anginal sx's. EKG unchanged. Con't statin, BB, asa. imdur held for hypotension. -MATEO deferred previously due to labile creat's--no change chronic foot wound, gangrene, now s/p bka 07/03/16: - per pmd/vascular chronic HFpEF/pulm HTN/venous ins'y/acute on chronic hypoxic and hypercapneic resp failure: - mild systolic dysfunction, presumed RV dysfunction. - while here have tried both ivfs and diuretics w/o improvement in renal fcn. Pt declined HD. Now family considering comfort care/hospice. PSVT: -likely brief run of ATach on prior tele , no recurrence -con't bb as bp tolerates VTach: -17 beat run of NSVT on prior tele (previous admit), no recurrence -K/Mag repletion prn -con't bb CKD - cr above baseline - while here have tried both ivfs and diuretics w/o improvement in renal fcn. Pt declined HD. Now family considering comfort care/hospice. - renal following MIRIAM - on bipap qhs. anemia: -chronic, baseline runs 8s-9s; -freq acute drops/PRBCs in past; currently at baseline. HTN: -controlled on current meds
--- NOTE | 2016-10-03 14:12 | PN ---
Progress Note (short form) - Note Progress Note: Renal Follow up for CRISTELA on CKD Seen and examined at the bedside lethargic sister in the law at the bedside awaiting placement at [place] Vital Signs Temperature 98.2 F 10/03/16 06:00 Pulse Rate 80 10/03/16 10:12 Respiratory Rate 20 10/03/16 06:00 Blood Pressure 111/54 10/03/16 06:00 O2 Sat by Pulse Oximetry (%) 100 10/03/16 10:12 Intake & Output 09/30/16 10/01/16 10/02/16 10/03/16 23:59 23:59 23:59 23:59 Intake Total 540 250 300 Output Total 750 350 300 100 Balance -210 -100 0 -100 Weight 299 lb 12.8 oz 298 lb 4.8 oz Gen: Mild distress from pain CVS: RRR, No M/R Lungs: Dec BS at the lung bases Abd: soft NT/ND, Obese Ext: 2+ lymphedema, R BKA CBC, BMP 10/03/16 06:45 10/03/16 06:45 Laboratory Tests 09/27/16 10/01/16 10/03/16 05:35 10:30 06:45 Calcium 8.6 8.3 L 8.3 L Phosphorus 5.7 H 6.6 H Magnesium 2.7 H 2.7 H Current Medications Acetaminophen (Tylenol -) 650 mg PO DAILY PRN PRN Reason: PAIN LEVEL 6-10 Last Admin: 09/30/16 17:16 Dose: 650 mg Albuterol Sulfate (Ventolin 0.083% Nebulizer Soln -) 1 amp NEB Q6HPO [facility] Last Admin: 10/03/16 12:03 Dose: 1 amp Aspirin (Ecotrin -) 81 mg PO DAILY [facility] Last Admin: 10/03/16 09:37 Dose: 81 mg Atorvastatin Calcium (Lipitor -) 20 mg PO HS [facility] Last Admin: 10/02/16 21:56 Dose: 20 mg Calcium Acetate (Phoslo -) 667 mg PO TIDCM [facility] Last Admin: 10/03/16 12:21 Dose: 667 mg Cyanocobalamin (Vitamin B12 -) 1,000 mcg PO DAILY [facility] Last Admin: 10/03/16 09:36 Dose: 1,000 mcg Docusate Sodium (Colace -) 200 mg PO DAILY [facility] Last Admin: 10/03/16 09:36 Dose: 200 mg Epoetin Dawood (Procrit -) 10,000 unit SQ Rice@10 [facility] Last Admin: 09/29/16 12:31 Dose: 10,000 unit Fluticasone Propionate (Flonase -) 1 spray NS DAILY [facility] Last Admin: 10/03/16 09:38 Dose: 1 spray Folic Acid (Folic Acid -) 1 mg PO DAILY [facility] Last Admin: 10/03/16 09:37 Dose: 1 mg Gabapentin (Neurontin -) 300 mg PO QID [facility] Last Admin: 10/03/16 09:36 Dose: 300 mg Heparin Sodium (Porcine) (Heparin -) 5,000 unit SQ BID [facility] Last Admin: 10/03/16 09:38 Dose: 5,000 unit Piperacillin Sod/Tazobactam Sod (Zosyn 2.25gm Ivpb (Pre-Docked)) 50 mls @ 100 mls/hr IVPB Q8H-IV [facility] PRN Reason: Protocol Last Admin: 10/03/16 09:37 Dose: 100 mls/hr Insulin Aspart (Novolog Vial Sliding Scale -) 1 vial SQ BIDAC [facility] PRN Reason: Protocol Last Admin: 10/03/16 06:27 Dose: Not Given Levothyroxine Sodium (Synthroid -) 75 mcg PO ACBK [facility] Last Admin: 10/03/16 06:28 Dose: Not Given Loratadine (Claritin -) 10 mg PO DAILY PRN PRN Reason: FOR ITCHING Metoclopramide HCl (Reglan -) 5 mg PO ACHS [facility] Last Admin: 10/03/16 12:19 Dose: 5 mg Metoprolol Succinate (Toprol Xl -) 25 mg PO DAILY [facility] Last Admin: 10/03/16 09:42 Dose: 25 mg Mupirocin (Bactroban 2% Cream -) 1 applic TP BID [facility] Last Admin: 10/03/16 09:38 Dose: 1 applic Nystatin (Mycostatin Cream -) 3 applic TP DAILY [facility] Last Admin: 10/03/16 09:42 Dose: 3 applic Nystatin (Nystatin Oral Suspension -) 500,000 units PO Q6HPO [facility] Last Admin: 10/03/16 12:20 Dose: 500,000 units Oxycodone HCl (Roxicodone -) 5 mg PO Q6H PRN PRN Reason: PAIN Last Admin: 10/03/16 09:36 Dose: 5 mg Polyethylene Glycol (Miralax (For Daily Use) -) 17 gm PO BID [facility] Last Admin: 10/03/16 09:43 Dose: Not Given Senna (Senna -) 2 tab PO HS [facility] Last Admin: 10/02/16 21:55 Dose: 2 tab A/P 71 year old woman with PMhx of CKD stage 3 w/o significant proteinuria, CHF, COPD, PVD, Chronic LE lymphedema, IDDM, CAD who presented wit fever with BUN/Cr of 85/1.5 and K of 5..5. #CRISTELA on CKD with hyperkalemia todays labs reviwed no improvement in renal function pt does not want to pursue dialysis awaiting placement in [facility] pain control avoid further blood draws supportive care Thank you Lambert Mcnamara DO
[2016-10-03] MEDS: ATORVASTATIN CA 20 MG TABLET (FP) PO SCH (22:00)
[2016-10-03] MEDS: SENNOSIDES 8.6MG TABLET (FP) PO SCH (22:00)
[2016-10-04] MEDS: PIPERACILLIN/TAZOB 2.25 GM 50 ML IVPB SCH ×3 (02:35→17:44)
[2016-10-04] MEDS: ALBUTEROL SO4 0.083% IH SOL 2.5 MG/3 ML VIAL.NEB. NEB SCH ×4 (06:35→23:24)
[2016-10-04] MEDS: NYSTATIN 500,000 UNITS/5 ML SUSPENSION PO SCH ×3 (06:40→17:43)
[2016-10-04] MEDS: METOCLOPRAMIDE HCL 10 MG TABLET (FP) PO SCH ×4 (06:53→22:20)
[2016-10-04] MEDS: LEVOTHYROXINE NA 75 MCG TABLET (FP) PO SCH (06:53)
[2016-10-04] MEDS: INSULIN SLIDING SCALE (NOVOLOG) 1 VIAL SQ SCH ×2 (06:53→18:02)
--- NOTE | 2016-10-04 09:40 | PN ---
Progress Note, Physician Chief Complaint: in bed afebrile VSS confused; poor po intake - Current Medication List Current Medications: Active Medications Acetaminophen (Tylenol -) 650 mg PO DAILY PRN PRN Reason: PAIN LEVEL 6-10 Last Admin: 09/30/16 17:16 Dose: 650 mg Albuterol Sulfate (Ventolin 0.083% Nebulizer Soln -) 1 amp NEB Q6HPO [facility] Last Admin: 10/04/16 06:35 Dose: 1 amp Aspirin (Ecotrin -) 81 mg PO DAILY [facility] Last Admin: 10/03/16 09:37 Dose: 81 mg Atorvastatin Calcium (Lipitor -) 20 mg PO HS [facility] Last Admin: 10/03/16 22:00 Dose: 20 mg Calcium Acetate (Phoslo -) 667 mg PO TIDCM [facility] Last Admin: 10/03/16 18:24 Dose: 667 mg Cyanocobalamin (Vitamin B12 -) 1,000 mcg PO DAILY [facility] Last Admin: 10/03/16 09:36 Dose: 1,000 mcg Docusate Sodium (Colace -) 200 mg PO DAILY [facility] Last Admin: 10/03/16 09:36 Dose: 200 mg Epoetin Dawood (Procrit -) 10,000 unit SQ Rice@10 [facility] Last Admin: 09/29/16 12:31 Dose: 10,000 unit Fluticasone Propionate (Flonase -) 1 spray NS DAILY [facility] Last Admin: 10/03/16 09:38 Dose: 1 spray Folic Acid (Folic Acid -) 1 mg PO DAILY [facility] Last Admin: 10/03/16 09:37 Dose: 1 mg Gabapentin (Neurontin -) 300 mg PO QID [facility] Last Admin: 10/03/16 22:01 Dose: 300 mg Heparin Sodium (Porcine) (Heparin -) 5,000 unit SQ BID [facility] Last Admin: 10/03/16 22:00 Dose: 5,000 unit Piperacillin Sod/Tazobactam Sod (Zosyn 2.25gm Ivpb (Pre-Docked)) 50 mls @ 100 mls/hr IVPB Q8H-IV [facility] PRN Reason: Protocol Last Admin: 10/04/16 02:35 Dose: 100 mls/hr Insulin Aspart (Novolog Vial Sliding Scale -) 1 vial SQ BIDAC [facility] PRN Reason: Protocol Last Admin: 06/09/17 06:53 Dose: Not Given Levothyroxine Sodium (Synthroid -) 75 mcg PO ACBK [facility] Last Admin: 10/04/16 06:53 Dose: 75 mcg Loratadine (Claritin -) 10 mg PO DAILY PRN PRN Reason: FOR ITCHING Metoclopramide HCl (Reglan -) 5 mg PO ACHS [facility] Last Admin: 10/04/16 06:53 Dose: 5 mg Metoprolol Succinate (Toprol Xl -) 25 mg PO DAILY [facility] Last Admin: 10/03/16 09:42 Dose: 25 mg Mupirocin (Bactroban 2% Cream -) 1 applic TP BID [facility] Last Admin: 10/03/16 22:03 Dose: 1 applic Nystatin (Mycostatin Cream -) 3 applic TP DAILY [facility] Last Admin: 10/03/16 09:42 Dose: 3 applic Nystatin (Nystatin Oral Suspension -) 500,000 units PO Q6HPO [facility] Last Admin: 10/04/16 06:40 Dose: Not Given Oxycodone HCl (Roxicodone -) 5 mg PO Q6H PRN PRN Reason: PAIN Last Admin: 10/03/16 09:36 Dose: 5 mg Polyethylene Glycol (Miralax (For Daily Use) -) 17 gm PO BID [facility] Last Admin: 10/03/16 22:00 Dose: Not Given Senna (Senna -) 2 tab PO HS [facility] Last Admin: 10/03/16 22:00 Dose: 2 tab - Objective Vital Signs: Vital Signs Temperature 97.5 F L 10/04/16 06:00 Pulse Rate 80 10/04/16 06:00 Respiratory Rate 20 10/04/16 06:00 Blood Pressure 122/50 10/04/16 06:00 O2 Sat by Pulse Oximetry (%) 100 10/04/16 03:01 Constitutional: Yes: No Distress Eyes: Yes: Conjunctiva Clear HENT: Yes: Atraumatic Neck: Yes: Supple Cardiovascular: Yes: Regular Rate and Rhythm Respiratory: Yes: Diminished Gastrointestinal: Yes: Abdomen, Obese. No: Distention, Tenderness Extremities: Yes: Amputation Edema: Yes Integumentary: Yes: Rash Neurological: Yes: Alert. No: Oriented Psychiatric: Yes: Alert. No: Oriented, Agitated Labs: CBC, BMP 10/03/16 06:45 10/03/16 06:45 INR, PTT INR 1.22 (0.82-1.09) H 09/16/16 10:53 - ....Imaging Other: Report Reviewed Assessment/Plan The patient is a 71 year old female brought via EMS from [facility], with a significant past medical history of Hypothyroidism, Diabetes, HTN, CHF, [place] x2, (on home O2, 2L), left BKA, anemia, essential tremors, CAD, GERD, CKD and obesity, admitted with UTI, RLE cellulitis, neck and R axilla fungic rash improved; sepsis, UTI, legs cellulitis; uremic and oliguric broad spectrum ATB per ID cardiology, renal f/u f/u labs DVT falls decubs and aspiration PFX HOB BGM, DM control; DNR DNI no dyalsis per pt's prior and current wishes palliative care eval prognosis poor, awaiting transfer to [facility] d/w pt and staff
[2016-10-04] MEDS: CYANOCOBALAMIN 1,000 MCG TABLET (FP) PO SCH (10:35)
[2016-10-04] MEDS: GABAPENTIN 300 MG CAPSULE (FP) PO SCH ×4 (10:35→22:20)
[2016-10-04] MEDS: METOPROLOL SUCCINATE 25 MG TAB.SR.24H (FP) PO SCH (10:35)
[2016-10-04] MEDS: CALCIUM ACETATE 667 MG CAPSULE (FP) PO SCH ×3 (10:35→17:43)
[2016-10-04] MEDS: FOLIC ACID 1 MG TABLET (FP) PO SCH (10:35)
[2016-10-04] MEDS: DOCUSATE SODIUM 100 MG CAPSULE (FP) PO SCH (10:35)
[2016-10-04] MEDS: MUPIROCIN CA 2% TOPICAL CREAM 15 GM TUBE TP SCH ×2 (10:36→22:22)
[2016-10-04] MEDS: FLUTICASONE PROP 0.05% 16 GM NASAL SPRAY NS SCH (10:36)
[2016-10-04] MEDS: HEPARIN NA (PORCINE) 5,000 UNITS/ML 1ML VIAL SQ SCH ×2 (10:36→22:19)
[2016-10-04] MEDS: ASPIRIN COATED 81 MG TABLET.EC PO SCH (10:36)
[2016-10-04] MEDS: POLYETHYLENE GLYCOL 3350 119 GM BTL PO SCH ×2 (10:37→22:22)
[2016-10-04] MEDS: NYSTATIN 100,000 UNIT/GM TOPICAL CREAM 15 GM TUBE TP SCH (10:37)
--- NOTE | 2016-10-04 13:41 | PN ---
Progress Note (short form) - Note Progress Note: Renal Follow up for CRISTELA on CKD Seen and examined at the bedside sleeping, not in discomfort no overnight events Vital Signs Temperature 97.5 F L 10/04/16 06:00 Pulse Rate 80 10/04/16 10:00 Respiratory Rate 20 10/04/16 06:00 Blood Pressure 122/50 10/04/16 06:00 O2 Sat by Pulse Oximetry (%) 98 10/04/16 10:00 Intake & Output 10/01/16 10/02/16 10/03/16 10/04/16 23:59 23:59 23:59 23:59 Intake Total 250 300 510 Output Total 350 300 300 200 Balance -100 0 210 -200 Weight 298 lb 4.8 oz 299 lb 5 oz Gen: Mild distress from pain CVS: RRR, No M/R Lungs: Dec BS at the lung bases Abd: soft NT/ND, Obese Ext: 2+ lymphedema, R BKA CBC, BMP 10/03/16 06:45 10/03/16 06:45 Laboratory Tests 10/03/16 06:45 Calcium 8.3 L Current Medications Acetaminophen (Tylenol -) 650 mg PO DAILY PRN PRN Reason: PAIN LEVEL 6-10 Last Admin: 09/30/16 17:16 Dose: 650 mg Albuterol Sulfate (Ventolin 0.083% Nebulizer Soln -) 1 amp NEB Q6HPO [facility] Last Admin: 10/04/16 11:06 Dose: 1 amp Aspirin (Ecotrin -) 81 mg PO DAILY [facility] Last Admin: 10/04/16 10:36 Dose: 81 mg Atorvastatin Calcium (Lipitor -) 20 mg PO HS [facility] Last Admin: 10/03/16 22:00 Dose: 20 mg Calcium Acetate (Phoslo -) 667 mg PO TIDCM [facility] Last Admin: 10/04/16 10:35 Dose: 667 mg Cyanocobalamin (Vitamin B12 -) 1,000 mcg PO DAILY [facility] Last Admin: 10/04/16 10:35 Dose: 1,000 mcg Docusate Sodium (Colace -) 200 mg PO DAILY [facility] Last Admin: 10/04/16 10:35 Dose: 200 mg Epoetin Dawood (Procrit -) 10,000 unit SQ Rice@10 [facility] Last Admin: 09/29/16 12:31 Dose: 10,000 unit Fluticasone Propionate (Flonase -) 1 spray NS DAILY [facility] Last Admin: 10/04/16 10:36 Dose: 1 spray Folic Acid (Folic Acid -) 1 mg PO DAILY [facility] Last Admin: 10/04/16 10:35 Dose: 1 mg Gabapentin (Neurontin -) 300 mg PO QID [facility] Last Admin: 10/04/16 10:35 Dose: 300 mg Heparin Sodium (Porcine) (Heparin -) 5,000 unit SQ BID [facility] Last Admin: 10/04/16 10:36 Dose: 5,000 unit Piperacillin Sod/Tazobactam Sod (Zosyn 2.25gm Ivpb (Pre-Docked)) 50 mls @ 100 mls/hr IVPB Q8H-IV [facility] PRN Reason: Protocol Last Admin: 10/04/16 02:35 Dose: 100 mls/hr Insulin Aspart (Novolog Vial Sliding Scale -) 1 vial SQ BIDAC [facility] PRN Reason: Protocol Last Admin: 10/04/16 06:53 Dose: Not Given Levothyroxine Sodium (Synthroid -) 75 mcg PO ACBK [facility] Last Admin: 10/04/16 06:53 Dose: 75 mcg Loratadine (Claritin -) 10 mg PO DAILY PRN PRN Reason: FOR ITCHING Metoclopramide HCl (Reglan -) 5 mg PO ACHS [facility] Last Admin: 10/04/16 10:35 Dose: 5 mg Metoprolol Succinate (Toprol Xl -) 25 mg PO DAILY [facility] Last Admin: 10/04/16 10:35 Dose: 25 mg Mupirocin (Bactroban 2% Cream -) 1 applic TP BID [facility] Last Admin: 10/04/16 10:36 Dose: 1 applic Nystatin (Mycostatin Cream -) 3 applic TP DAILY [facility] Last Admin: 10/04/16 10:37 Dose: 3 applic Nystatin (Nystatin Oral Suspension -) 500,000 units PO Q6HPO [facility] Last Admin: 10/04/16 06:40 Dose: Not Given Oxycodone HCl (Roxicodone -) 5 mg PO Q6H PRN PRN Reason: PAIN Last Admin: 10/03/16 09:36 Dose: 5 mg Polyethylene Glycol (Miralax (For Daily Use) -) 17 gm PO BID [facility] Last Admin: 10/04/16 10:37 Dose: Not Given Senna (Senna -) 2 tab PO HS [facility] Last Admin: 10/03/16 22:00 Dose: 2 tab A/P 71 year old woman with PMhx of CKD stage 3 w/o significant proteinuria, CHF, COPD, PVD, Chronic LE lymphedema, IDDM, CAD who presented wit fever with BUN/Cr of 85/1.5 and K of 5..5. #CRISTELA on CKD with uremia remains oliguric at this time no new labs continue supportive care no dialysis as per family and pt request hospice placement pending Thank you Lambert Mcnamara DO
[2016-10-04] MEDS: SENNOSIDES 8.6MG TABLET (FP) PO SCH (22:20)
[2016-10-04] MEDS: ATORVASTATIN CA 20 MG TABLET (FP) PO SCH (22:20)
[2016-10-04] MEDS: oxyCODONE HCL 5 MG TABLET PO PRN (22:20)
[2016-10-05] MEDS: NYSTATIN 500,000 UNITS/5 ML SUSPENSION PO SCH ×3 (00:51→12:06)
[2016-10-05] MEDS: PIPERACILLIN/TAZOB 2.25 GM 50 ML IVPB SCH ×2 (01:40→09:51)
--- NOTE | 2016-10-05 06:27 | PN ---
Progress Note, Physician Chief Complaint: confused; NAD denies pain - Current Medication List Current Medications: Active Medications Acetaminophen (Tylenol -) 650 mg PO DAILY PRN PRN Reason: PAIN LEVEL 6-10 Last Admin: 09/30/16 17:16 Dose: 650 mg Albuterol Sulfate (Ventolin 0.083% Nebulizer Soln -) 1 amp NEB Q6HPO [facility] Last Admin: 10/04/16 23:24 Dose: 1 amp Aspirin (Ecotrin -) 81 mg PO DAILY [facility] Last Admin: 10/04/16 10:36 Dose: 81 mg Atorvastatin Calcium (Lipitor -) 20 mg PO HS [facility] Last Admin: 10/04/16 22:20 Dose: 20 mg Calcium Acetate (Phoslo -) 667 mg PO TIDCM [facility] Last Admin: 10/04/16 17:43 Dose: 667 mg Cyanocobalamin (Vitamin B12 -) 1,000 mcg PO DAILY [facility] Last Admin: 10/04/16 10:35 Dose: 1,000 mcg Docusate Sodium (Colace -) 200 mg PO DAILY [facility] Last Admin: 10/04/16 10:35 Dose: 200 mg Epoetin Dawood (Procrit -) 10,000 unit SQ Rice@10 [facility] Last Admin: 09/29/16 12:31 Dose: 10,000 unit Fluticasone Propionate (Flonase -) 1 spray NS DAILY [facility] Last Admin: 10/04/16 10:36 Dose: 1 spray Folic Acid (Folic Acid -) 1 mg PO DAILY [facility] Last Admin: 10/04/16 10:35 Dose: 1 mg Gabapentin (Neurontin -) 300 mg PO QID [facility] Last Admin: 10/04/16 22:20 Dose: 300 mg Heparin Sodium (Porcine) (Heparin -) 5,000 unit SQ BID [facility] Last Admin: 10/04/16 22:19 Dose: 5,000 unit Piperacillin Sod/Tazobactam Sod (Zosyn 2.25gm Ivpb (Pre-Docked)) 50 mls @ 100 mls/hr IVPB Q8H-IV [facility] PRN Reason: Protocol Last Admin: 10/05/16 01:40 Dose: 100 mls/hr Insulin Aspart (Novolog Vial Sliding Scale -) 1 vial SQ BIDAC [facility] PRN Reason: Protocol Last Admin: 10/04/16 18:02 Dose: Not Given Levothyroxine Sodium (Synthroid -) 75 mcg PO ACBK [facility] Last Admin: 10/04/16 06:53 Dose: 75 mcg Loratadine (Claritin -) 10 mg PO DAILY PRN PRN Reason: FOR ITCHING Metoclopramide HCl (Reglan -) 5 mg PO ACHS [facility] Last Admin: 10/04/16 22:20 Dose: 5 mg Metoprolol Succinate (Toprol Xl -) 25 mg PO DAILY [facility] Last Admin: 10/04/16 10:35 Dose: 25 mg Mupirocin (Bactroban 2% Cream -) 1 applic TP BID [facility] Last Admin: 10/04/16 22:22 Dose: 1 applic Nystatin (Mycostatin Cream -) 3 applic TP DAILY [facility] Last Admin: 10/04/16 10:37 Dose: 3 applic Nystatin (Nystatin Oral Suspension -) 500,000 units PO Q6HPO [facility] Last Admin: 10/05/16 00:51 Dose: Not Given Oxycodone HCl (Roxicodone -) 5 mg PO Q6H PRN PRN Reason: PAIN Last Admin: 10/04/16 22:20 Dose: 5 mg Polyethylene Glycol (Miralax (For Daily Use) -) 17 gm PO BID [facility] Last Admin: 10/04/16 22:22 Dose: 17 gm Senna (Senna -) 2 tab PO HS [facility] Last Admin: 10/04/16 22:20 Dose: 2 tab - Objective Vital Signs: Vital Signs Temperature 98.8 F 10/04/16 22:00 Pulse Rate 86 10/04/16 22:00 Respiratory Rate 18 10/04/16 22:00 Blood Pressure 129/62 10/04/16 22:00 O2 Sat by Pulse Oximetry (%) 96 10/05/16 00:23 Constitutional: Yes: No Distress, Calm Eyes: Yes: Conjunctiva Clear HENT: Yes: Atraumatic Neck: Yes: Supple Cardiovascular: Yes: Regular Rate and Rhythm Respiratory: Yes: Diminished Gastrointestinal: Yes: Soft, Abdomen, Obese. No: Tenderness Musculoskeletal: No: Joint Stiffness, Joint Swelling Extremities: No: Cold, Cool Edema: Yes Integumentary: Yes: Rash Neurological: Yes: Alert. No: Oriented Psychiatric: Yes: Alert. No: Oriented, Agitated Labs: CBC, BMP 10/03/16 06:45 10/03/16 06:45 INR, PTT INR 1.22 (0.82-1.09) H 09/16/16 10:53 - ....Imaging Other: Report Reviewed Assessment/Plan The patient is a 71 year old female brought via EMS from [facility], with a significant past medical history of Hypothyroidism, Diabetes, HTN, CHF, [place] x2, (on home O2, 2L), left BKA, anemia, essential tremors, CAD, GERD, CKD and obesity, admitted with UTI, RLE cellulitis, neck and R axilla fungic rash improved; sepsis, UTI, legs cellulitis; uremic and oliguric broad spectrum ATB per ID cardiology, renal f/u f/u labs DVT falls decubs and aspiration PFX HOB BGM, DM control; DNR DNI no dyalsis per pt's prior and current wishes d/w pt's sister Patricia and pt's sister Guerline who said pt's brother is also aware, [facility] accepted pt and they have a bed for her for today; comfort care prognosis poor d/w pt and staff
[2016-10-05] MEDS: ALBUTEROL SO4 0.083% IH SOL 2.5 MG/3 ML VIAL.NEB. NEB SCH ×2 (06:42→11:14)
[2016-10-05] MEDS: METOCLOPRAMIDE HCL 10 MG TABLET (FP) PO SCH ×2 (06:48→12:06)
[2016-10-05] MEDS: LEVOTHYROXINE NA 75 MCG TABLET (FP) PO SCH (06:48)
[2016-10-05] MEDS: INSULIN SLIDING SCALE (NOVOLOG) 1 VIAL SQ SCH (06:49)
[2016-10-05] MEDS: CALCIUM ACETATE 667 MG CAPSULE (FP) PO SCH ×2 (08:55→12:06)
[2016-10-05 09:43] VITALS: BP 120/60; TEMP 98
[2016-10-05] MEDS: POLYETHYLENE GLYCOL 3350 119 GM BTL PO SCH (09:44)
[2016-10-05] MEDS: FLUTICASONE PROP 0.05% 16 GM NASAL SPRAY NS SCH (09:49)
[2016-10-05] MEDS: DOCUSATE SODIUM 100 MG CAPSULE (FP) PO SCH (09:50)
[2016-10-05] MEDS: MUPIROCIN CA 2% TOPICAL CREAM 15 GM TUBE TP SCH (09:50)
[2016-10-05] MEDS: NYSTATIN 100,000 UNIT/GM TOPICAL CREAM 15 GM TUBE TP SCH (09:50)
[2016-10-05] MEDS: HEPARIN NA (PORCINE) 5,000 UNITS/ML 1ML VIAL SQ SCH (09:51)
[2016-10-05] MEDS: FOLIC ACID 1 MG TABLET (FP) PO SCH (09:51)
[2016-10-05] MEDS: GABAPENTIN 300 MG CAPSULE (FP) PO SCH (09:51)
[2016-10-05] MEDS: CYANOCOBALAMIN 1,000 MCG TABLET (FP) PO SCH (09:51)
[2016-10-05] MEDS: ASPIRIN COATED 81 MG TABLET.EC PO SCH (09:51)
[2016-10-05] MEDS: METOPROLOL SUCCINATE 25 MG TAB.SR.24H (FP) PO SCH (09:51)
[2016-10-05 11:15] VITALS: PULSE 79
[2016-10-05] MEDS: oxyCODONE HCL 5 MG TABLET PO PRN (12:06)
--- NOTE | 2016-10-05 12:59 | PN ---
Progress Note, Physician Chief Complaint: The patient seen in her bed. Lethargic, but arousable. Scheduled for Hospice transfer today. - Current Medication List Current Medications: Active Medications Acetaminophen (Tylenol -) 650 mg PO DAILY PRN PRN Reason: PAIN LEVEL 6-10 Last Admin: 09/30/16 17:16 Dose: 650 mg Albuterol Sulfate (Ventolin 0.083% Nebulizer Soln -) 1 amp NEB Q6HPO [facility] Last Admin: 10/05/16 11:14 Dose: 1 amp Aspirin (Ecotrin -) 81 mg PO DAILY [facility] Last Admin: 10/05/16 09:51 Dose: 81 mg Atorvastatin Calcium (Lipitor -) 20 mg PO HS [facility] Last Admin: 10/04/16 22:20 Dose: 20 mg Calcium Acetate (Phoslo -) 667 mg PO TIDCM [facility] Last Admin: 10/05/16 12:06 Dose: 667 mg Cyanocobalamin (Vitamin B12 -) 1,000 mcg PO DAILY [facility] Last Admin: 10/05/16 09:51 Dose: 1,000 mcg Docusate Sodium (Colace -) 200 mg PO DAILY [facility] Last Admin: 10/05/16 09:50 Dose: 200 mg Epoetin Dawood (Procrit -) 10,000 unit SQ Rice@10 [facility] Last Admin: 09/29/16 12:31 Dose: 10,000 unit Fluticasone Propionate (Flonase -) 1 spray NS DAILY [facility] Last Admin: 10/05/16 09:49 Dose: 1 spray Folic Acid (Folic Acid -) 1 mg PO DAILY [facility] Last Admin: 10/05/16 09:51 Dose: 1 mg Gabapentin (Neurontin -) 300 mg PO QID [facility] Last Admin: 10/05/16 09:51 Dose: 300 mg Heparin Sodium (Porcine) (Heparin -) 5,000 unit SQ BID [facility] Last Admin: 10/05/16 09:51 Dose: 5,000 unit Piperacillin Sod/Tazobactam Sod (Zosyn 2.25gm Ivpb (Pre-Docked)) 50 mls @ 100 mls/hr IVPB Q8H-IV [facility] PRN Reason: Protocol Last Admin: 10/05/16 09:51 Dose: 100 mls/hr Insulin Aspart (Novolog Vial Sliding Scale -) 1 vial SQ BIDAC [facility] PRN Reason: Protocol Last Admin: 10/05/16 06:49 Dose: Not Given Levothyroxine Sodium (Synthroid -) 75 mcg PO ACBK [facility] Last Admin: 10/05/16 06:48 Dose: 75 mcg Loratadine (Claritin -) 10 mg PO DAILY PRN PRN Reason: FOR ITCHING Metoclopramide HCl (Reglan -) 5 mg PO ACHS [facility] Last Admin: 10/05/16 12:06 Dose: 5 mg Metoprolol Succinate (Toprol Xl -) 25 mg PO DAILY [facility] Last Admin: 10/05/16 09:51 Dose: 25 mg Mupirocin (Bactroban 2% Cream -) 1 applic TP BID [facility] Last Admin: 10/05/16 09:50 Dose: 1 applic Nystatin (Mycostatin Cream -) 3 applic TP DAILY [facility] Last Admin: 10/05/16 09:50 Dose: 3 applic Nystatin (Nystatin Oral Suspension -) 500,000 units PO Q6HPO [facility] Last Admin: 10/05/16 12:06 Dose: 500,000 units Oxycodone HCl (Roxicodone -) 5 mg PO Q6H PRN PRN Reason: PAIN Last Admin: 10/05/16 12:06 Dose: 5 mg Polyethylene Glycol (Miralax (For Daily Use) -) 17 gm PO BID [facility] Last Admin: 10/05/16 09:44 Dose: Not Given Senna (Senna -) 2 tab PO HS [facility] Last Admin: 10/04/16 22:20 Dose: 2 tab - Objective Vital Signs: Vital Signs Temperature 98 F 10/05/16 09:43 Pulse Rate 79 10/05/16 11:14 Respiratory Rate 20 10/05/16 09:43 Blood Pressure 120/60 10/05/16 09:43 O2 Sat by Pulse Oximetry (%) 100 10/05/16 11:50 HENT: Yes: Atraumatic Respiratory: Yes: Diminished, Poor Air Entry Gastrointestinal: Yes: Abdomen, Obese Peripheral Pulses WNL: Yes Labs: CBC, BMP 10/03/16 06:45 10/03/16 06:45 INR, PTT INR 1.22 (0.82-1.09) H 09/16/16 10:53 Problem List - Problems (1) Acute on chronic renal failure Code(s): N17.9 - ACUTE KIDNEY FAILURE, UNSPECIFIED N18.9 - CHRONIC KIDNEY DISEASE, UNSPECIFIED (2) CO2 retention Code(s): E87.2 - ACIDOSIS (3) Diabetes Code(s): E11.9 - TYPE 2 DIABETES MELLITUS WITHOUT COMPLICATIONS (4) Hypermagnesemia Code(s): E83.41 - HYPERMAGNESEMIA (5) Anemia Code(s): D64.9 - ANEMIA, UNSPECIFIED Qualifiers: Qualified Code(s): D64.9 - Anemia, unspecified (6) Other fluid overload Code(s): E87.79 - OTHER FLUID OVERLOAD Assessment/Plan 71 y/o female with Chronic Kidney disease Stage 3, admitted with Fever, Cellulitis of the lower extremities. Her multiple medical co-morbid conditions include COPD, Congestive Heart failure , Peripheral arterial disease, S/p Left AKA, Chronic lymphedema, Coronary artery disease. Clinical conditions have worsened. Family is transferring the patient to hospice care. no further suggestions at this point. Apple Kang MD
== END 2016-10-05 13:15 | disposition hospice, inpatient (51) | DRG 871 ==
LOC: JER 10:29 → JERBED 12:55 → J4W 15:19 → J8W 09-27 13:48
PROVIDERS: ADMIT Internal Medicine; ATTEND Internal Medicine
DX: A41.9 Sepsis, unspecified organism (principal); R53.2 Functional quadriplegia; I13.0 Hypertensive heart and chronic kidney disease with heart failure and stage 1 through stage 4 chronic kidney disease, or unspecified chronic kidney disease; I50.32 Chronic diastolic (congestive) heart failure; I47.1 Supraventricular tachycardia; N17.9 Acute kidney failure, unspecified; E87.2 Acidosis; L03.115 Cellulitis of right lower limb; Z68.43 Body mass index [BMI] 50.0-59.9, adult; E03.9 Hypothyroidism, unspecified; I25.2 Old myocardial infarction; Z99.81 Dependence on supplemental oxygen; Z89.512 Acquired absence of left leg below knee; D64.9 Anemia, unspecified; I25.10 Atherosclerotic heart disease of native coronary artery without angina pectoris; K21.9 Gastro-esophageal reflux disease without esophagitis; E11.22 Type 2 diabetes mellitus with diabetic chronic kidney disease; I27.2 Other secondary pulmonary hypertension; G47.33 Obstructive sleep apnea (adult) (pediatric); Z79.4 Long term (current) use of insulin; E66.01 Morbid (severe) obesity due to excess calories; J44.9 Chronic obstructive pulmonary disease, unspecified; N18.3 Chronic kidney disease, stage 3 (moderate); E87.5 Hyperkalemia; D69.6 Thrombocytopenia, unspecified; I73.9 Peripheral vascular disease, unspecified; I89.0 Lymphedema, not elsewhere classified; E11.40 Type 2 diabetes mellitus with diabetic neuropathy, unspecified; G25.0 Essential tremor; E83.41 Hypermagnesemia; Z66 Do not resuscitate
CPT/HCPCS: 36415; 71010-TC; 76700-TC; 76775-TC; 76856-TC; 80048; 80053; 81003; 81015; 82140; 82436; 82550; 82570; 82607; 82728; 82803; 83540; 83550; 83605; 83735; 84100; 84133; 84300; 84443; 84484; 85025; 85027; 85610; 85730; 86850; 86870; 86880; 86900; 86901; 86902; 87040; 87086; 87186; 93005; 93010; 94640; 94660; 99283-25; E0277; G0480; J0885; J1644; J1756